=== PATIENT | female | born 1980 | race Caucasian/White ===

== ENCOUNTER 2020-08-18 12:01 | Outpatient (REF) | payer MEDICAID, SELFPAY ==
--- NOTE | 2020-08-18 12:21 | CT_ITS ---
EXAMINATION: CT ABDOMEN AND PELVIS WITHOUT CONTRAST CLINICAL INFORMATION: Right lower quadrant pain. COMPARISON: Ultrasound abdomen 02/21/[address] abdomen and pelvis 02/07/2007. TECHNIQUE: Multidetector volumetric imaging was performed from the superior aspect of the liver through the pubic symphysis. Sagittal and coronal reformatted images were obtained on the technologist's workstation. This CT examination was performed using dose optimization techniques as appropriate, variously including the following: *Automated exposure control. *Adjustment of mA and/or kV according to patient size (this includes techniques or standardized protocols for targeted exams where dose is matched to indication/reason for exam; i.e. extremities or head). *Use of iterative reconstruction technique. DLP: 629 mGy-cm FINDINGS: LUNG BASES: The visualized lung bases are unremarkable. LIVER, GALLBLADDER, AND BILIARY TREE: The liver is normal in size, shape, and attenuation. No focal hepatic lesion or biliary ductal dilatation is present. The gallbladder is unremarkable with no evidence of radiopaque gallstones, gallbladder wall thickening, or obvious pericholecystic inflammatory changes. PANCREAS: Unremarkable. SPLEEN: Unremarkable. ADRENAL GLANDS: Unremarkable. KIDNEYS AND URETERS: The kidneys are normal in size, shape, and attenuation. No hydronephrosis, hydroureter, or calculi seen. No perinephric stranding. BLADDER: The bladder is nondistended and appears unremarkable. GASTROINTESTINAL TRACT: There is moderate scattered stool seen throughout the colon with a few scattered diverticuli and without significant distention. Oral contrast opacified. Small bowel loops appear unremarkable. The appendix is visualized and appears unremarkable. ABDOMINAL WALL: No significant hernia is appreciated. LYMPH NODES: Normal. VASCULAR: Unremarkable. PELVIC VISCERA: There is a 3.4 x 3.3 cm round hypodense lesion in the left adnexa measuring 3 Hounsfield units suggestive of left ovarian or paraovarian cyst. Small benign lymph nodes are seen in the inguinal region. OSSEOUS STRUCTURES: No lytic or sclerotic process seen. IMPRESSION: 1. Moderate constipation with a few scattered diverticuli. 2. Left ovarian or paraovarian 3 cm cyst. 3. No radiopaque urolith or hydronephrosis seen.
[2020-08-18] MEDS: Barium Sulfate Oral (Mocha) 450 ML ORAL.SUSP 900 ML PO (15:20)
== END 2020-08-18 12:02 | disposition home or self-care (01) ==
LOC: HO.CT 12:01
PROVIDERS: PCP Nurse Practitioner Family; Visit Provider Internal Medicine
DX: Z01.818 Encounter for other preprocedural examination (principal); R10.31 Right lower quadrant pain
CPT/HCPCS: 74176

== ENCOUNTER → 2020-08-19 11:03 | Outpatient (REF) | payer MEDICAID, SELFPAY ==
--- NOTE | 2020-08-19 11:24 | ECG_ITS ---
Test Reason : PREPROC EXAM Blood Pressure : / mmHG Vent. Rate : 069 BPM Atrial Rate : 069 BPM P-R Int : 146 ms QRS Dur : 080 ms QT Int : 390 ms P-R-T Axes : 060 035 008 degrees QTc Int : 417 ms Normal sinus rhythm Nonspecific T wave abnormality Abnormal ECG When compared with ECG of 08-APR-2020 14:26, No significant change was found Referred By: Brian Name Electronically Signed By:GWENDOLYN BEVERLY MD
== END ==
LOC: HO.CARD 11:03
PROVIDERS: PCP Internal Medicine Geriatric Medicine; Visit Provider Internal Medicine Geriatric Medicine
DX: Z01.810 Encounter for preprocedural cardiovascular examination (principal); R94.31 Abnormal electrocardiogram [ECG] [EKG]
CPT/HCPCS: 93005

== ENCOUNTER 2020-09-16 12:14 | Outpatient (REF) | payer MEDICAID, SELFPAY | END 2020-09-16 12:15 | disposition home or self-care (01) | LOC: HO.LAB 12:14 | PROVIDERS: PCP Nurse Practitioner Family; Visit Provider Internal Medicine | DX: Z20.828 Contact with and (suspected) exposure to other viral communicable diseases (principal) | CPT/HCPCS: C9803; U0003 ==

== ENCOUNTER 2020-10-01 14:53 | Outpatient (REF) | payer MEDICAID, SELFPAY | END 2020-10-01 14:54 | disposition home or self-care (01) | LOC: HO.LAB 14:53 | PROVIDERS: Visit Provider Internal Medicine | DX: Z20.828 Contact with and (suspected) exposure to other viral communicable diseases (principal) | CPT/HCPCS: C9803; U0003 ==

== ENCOUNTER 2020-10-07 10:11 | Outpatient (REF) | payer MEDICAID, SELFPAY ==
[2020-10-07 11:24] LABS: Estimated Average Glucose 100 mg/dL; Hemoglobin A1c % 5.1 %
[2020-10-07 11:26] LABS: Cholesterol 289 mg/dL; Glucose Fasting 86 mg/dL (60-99); HDL Cholesterol 52 mg/dL; LDL Cholesterol Calculated 209 mg/dl; Triglycerides 142 mg/dL
== END 2020-10-07 10:12 | disposition home or self-care (01) ==
LOC: HO.LAB 10:11
PROVIDERS: PCP Nurse Practitioner Family; Visit Provider Nurse Practitioner Family
DX: E78.5 Hyperlipidemia, unspecified (principal); R73.03 Prediabetes; Z71.89 Other specified counseling
CPT/HCPCS: 80061; 82947; 83036

== ENCOUNTER → 2020-11-26 14:47 | Outpatient (REF) | payer MEDICAID, SELFPAY ==
--- NOTE | 2020-11-26 14:52 | ECG_ITS ---
Test Reason : PREPROC EXAM Blood Pressure : / mmHG Vent. Rate : 055 BPM Atrial Rate : 055 BPM P-R Int : 144 ms QRS Dur : 088 ms QT Int : 456 ms P-R-T Axes : 060 049 008 degrees QTc Int : 436 ms Sinus bradycardia Nonspecific T wave abnormality Abnormal ECG When compared to the previous EKG of Sinus bradycardia present Referred By: Amy Delgado Electronically Signed By:Tay Alvarez
--- NOTE | 2020-11-26 15:05 | XR_ITS ---
EXAMINATION: XR CHEST CLINICAL INFORMATION: Preprocedural examination COMPARISON: None TECHNIQUE: 2 views of the chest were obtained. FINDINGS: No significant abnormality is noted involving the heart, lungs, mediastinum, bony thorax or soft tissues. XR/XR chest 2V IMPRESSION: Unremarkable chest examination.
== END ==
LOC: HO.CARD 14:47
PROVIDERS: Absent Provider Nurse Practitioner Family; PCP Nurse Practitioner Family; Visit Provider Nurse Practitioner Family
DX: Z01.818 Encounter for other preprocedural examination (principal)
CPT/HCPCS: 71046; 93005

== ENCOUNTER 2020-11-30 10:03 | Outpatient (REF) | payer MEDICAID, SELFPAY | END 2020-11-30 10:04 | disposition home or self-care (01) | LOC: HO.LAB 10:03 | PROVIDERS: PCP Nurse Practitioner Family; Visit Provider Internal Medicine | DX: Z20.822 Contact with and (suspected) exposure to COVID-19 (principal) | CPT/HCPCS: 36415; C9803; U0003; U0005 ==

== ENCOUNTER 2020-12-01 10:34 | Outpatient (REF) | payer MEDICAID, SELFPAY ==
[2020-12-01 12:18] LABS: Anion Gap 12 (12-20); Blood Urea Nitrogen 11 mg/dL (9-16); Calcium 9.2 mg/dL (8.4-10.2); Carbon Dioxide 29 mmol/L (22-29); Chloride 104 mmol/L (96-108); Estimated Glomerular Filt Rate > 60; Glucose Random 81 mg/dL (60-115); Potassium 4.6 mmol/L (3.3-5.1); Sodium 140 mmol/L (135-145)
== END 2020-12-01 10:35 | disposition home or self-care (01) ==
LOC: HO.LAB 10:34
PROVIDERS: PCP Nurse Practitioner Family; Visit Provider Nurse Practitioner Family
DX: Z01.818 Encounter for other preprocedural examination (principal)
CPT/HCPCS: 36415; 80048

== ENCOUNTER 2020-12-24 10:08 | Outpatient (REF) | payer MEDICAID, SELFPAY | END 2020-12-24 10:09 | disposition home or self-care (01) | LOC: HO.LAB 10:08 | PROVIDERS: Visit Provider Internal Medicine | DX: Z20.822 Contact with and (suspected) exposure to COVID-19 (principal) | CPT/HCPCS: 36415; C9803; U0003; U0005 ==

== ENCOUNTER 2021-02-25 09:42 | Outpatient (REF) | payer MEDICAID, SELFPAY ==
[2021-02-25 10:05] LABS: COVID-19 Test Negative (Negative)
== END 2021-02-25 09:43 | disposition home or self-care (01) ==
LOC: HO.LAB 09:42
PROVIDERS: Visit Provider Internal Medicine
DX: Z20.822 Contact with and (suspected) exposure to COVID-19 (principal)
CPT/HCPCS: 36415; 87635; C9803

== ENCOUNTER 2021-04-11 08:54 | Outpatient (REF) | payer MEDICAID, SELFPAY ==
--- NOTE | ~2021-04-11 | MM_ITS ---
EXAMINATION: MM SCREENING DIGITAL BREAST TOMOSYNTHESIS, BILATERAL CLINICAL INFORMATION: Screening. Asymptomatic. Status post implants August 2020. Also history bilateral reduction mammoplasty 2015. The lifetime risk of breast cancer based on the Tyrer-Cuzick Model is 7%. COMPARISON: Mammography: 04/08/2020, 04/04/2019, 04/03/2018 TECHNIQUE: Digital mammography is performed in craniocaudal and mediolateral oblique views along with computer-aided detection (CAD). Digital breast tomosynthesis is performed in implant-displaced craniocaudal and implant-displaced mediolateral oblique views along with computer-aided detection (CAD). Synthesized 2D images are generated from the tomosynthesis. FINDINGS: The breasts are heterogeneously dense, which may obscure small masses (ACR BI-RADS breast composition Category c). There are interval bilateral implants since prior imaging 04/08/2020. The implant margins are smooth. The breasts show no significant mass or architectural abnormality or abnormal calcifications. The axilla and skin contours are unremarkable. MM/MM tomosynthesis screen imp BI IMPRESSION: No mammographic evidence of malignancy. ASSESSMENT: BI-RADS 2: Benign RECOMMENDATION: Routine annual mammography screening. This patient's information was entered into a reminder system with a target due date for their next mammogram.
== END 2021-04-11 08:55 | disposition home or self-care (01) ==
LOC: HO.MAMMO 08:54
PROVIDERS: Visit Provider Registered Nurse
DX: Z12.31 Encounter for screening mammogram for malignant neoplasm of breast (principal)
CPT/HCPCS: 77063; 77067

== ENCOUNTER → 2021-10-06 09:48 | Outpatient (BNVA) | payer MEDICAID, SELFPAY | PROVIDERS: PCP Nurse Practitioner Primary Care; Referring Provider Nurse Practitioner Primary Care; Visit Provider Surgery | DX: K43.2 Incisional hernia without obstruction or gangrene (principal) | CPT/HCPCS: 99202 ==

== ENCOUNTER 2021-10-17 12:03 | Outpatient (REF) | payer MEDICAID, SELFPAY | END 2021-10-17 12:04 | disposition home or self-care (01) | LOC: HO.LAB 12:03 | PROVIDERS: Visit Provider Internal Medicine | DX: Z20.822 Contact with and (suspected) exposure to COVID-19 (principal) | CPT/HCPCS: C9803; U0003; U0005 ==

== ENCOUNTER 2021-10-31 10:04 | Outpatient (REF) | payer MEDICAID, SELFPAY ==
--- NOTE | ~2021-10-31 | CT_ITS ---
EXAMINATION: CT ABDOMEN AND PELVIS WITHOUT CONTRAST CLINICAL INFORMATION: Incisional hernia without obstruction or gangrene COMPARISON: Previous CT July 2020 TECHNIQUE: Multidetector volumetric imaging was performed from the superior aspect of the liver through the pubic symphysis. Sagittal and coronal reformatted images were obtained on the technologist's workstation. This CT examination was performed using dose optimization techniques as appropriate, variously including the following: *Automated exposure control *Adjustment of mA and/or kV according to patient size (this includes techniques or standardized protocols for targeted exams where dose is matched to indication/reason for exam; i.e. extremities or head) *Use of iterative reconstruction technique DLP: 438 mGy-cm FINDINGS: LUNG BASES: The visualized lung bases are unremarkable. LIVER, GALLBLADDER, AND BILIARY TREE: The liver is normal in size, shape, and attenuation. No focal hepatic lesion or biliary ductal dilatation is present. The gallbladder is unremarkable with no evidence of radiopaque gallstones, gallbladder wall thickening, or obvious pericholecystic inflammatory changes. PANCREAS: Unremarkable. SPLEEN: Unremarkable. ADRENAL GLANDS: Unremarkable. KIDNEYS AND URETERS: There is question of tiny 1 mm in size right renal stones. Kidneys are otherwise unremarkable. BLADDER: Unremarkable. GASTROINTESTINAL TRACT: The small and large bowel are unremarkable. The appendix is unremarkable. ABDOMINAL WALL: There are postoperative changes to the anterior abdominal wall. There is diastasis of the rectus muscles in the umbilical region. There is thickening of the anterior abdominal wall seen in this region questionable for postsurgical change. No abdominal wall hernia is seen. There is a stranding of the subcutaneous fat question related to postsurgical changes. No abdominal wall fluid collection is seen. No inguinal hernia is seen. LYMPH NODES: Normal. VASCULAR: Unremarkable. PELVIC VISCERA: The uterus appears to have been removed. OSSEOUS STRUCTURES: Unremarkable. CT/CT abdomen pelvis wo con IMPRESSION: Postsurgical changes to the anterior abdominal wall and diastasis of the rectus muscles. No definite hernia is seen. Question tiny right renal stones. Fleischner guidelines were followed.
== END 2021-10-31 10:05 | disposition home or self-care (01) ==
LOC: HO.CT 10:04
PROVIDERS: Visit Provider Surgery
DX: K43.2 Incisional hernia without obstruction or gangrene (principal)
CPT/HCPCS: 74176

== ENCOUNTER → 2021-11-15 10:23 | Outpatient (BNVA) | payer MEDICAID, SELFPAY | PROVIDERS: PCP Nurse Practitioner Primary Care; Referring Provider Nurse Practitioner Primary Care; Visit Provider Surgery | DX: K43.2 Incisional hernia without obstruction or gangrene (principal) | CPT/HCPCS: 99212 ==

== ENCOUNTER 2022-01-12 15:06 | Outpatient (REF) | payer MEDICAID, SELFPAY ==
--- NOTE | ~2022-01-12 | US_ITS ---
EXAMINATION: US SOFT TISSUES OF THE BACK CLINICAL INFORMATION: Question cyst or lesion, middle of back. COMPARISON: CT abdomen and pelvis 10/31/2021. TECHNIQUE: Real-time imaging of the midline back using a linear array transducer with grayscale and color modalities. FINDINGS: The cutaneous, subcutaneous, muscular and fascial planes are unremarkable. No mass or cyst is seen. There is no lymphadenopathy. No foreign body is seen. US/US abdomen limited IMPRESSION: Unremarkable examination, without focal finding finding seen to correspond with the palpable finding described by the patient in the midline back soft tissues.
== END 2022-01-12 15:07 | disposition home or self-care (01) ==
LOC: HO.US 15:06
PROVIDERS: PCP Nurse Practitioner Primary Care; Visit Provider Nurse Practitioner Primary Care
DX: L98.9 Disorder of the skin and subcutaneous tissue, unspecified (principal)
CPT/HCPCS: 76705

== ENCOUNTER 2022-02-17 07:54 | Outpatient (REF) | payer MEDICAID, SELFPAY ==
--- NOTE | ~2022-02-17 | US_ITS ---
EXAMINATION: US VENOUS ULTRASOUND WITH DOPPLER LOWER EXTREMITY, LEFT CLINICAL INFORMATION: Left lower extremity swelling and pain. COMPARISON: None TECHNIQUE: Ultrasound of the deep veins is performed from the hip to the calf with compression sonography and color and pulse Doppler assessment. Spectral analysis with color-flow imaging is performed. FINDINGS: There is normal venous compression and respiratory variation and augmented flow. The visualized common femoral vein, superficial femoral vein, profunda femoral vein, popliteal vein, and the trifurcation region shows no evidence of deep venous thrombosis. There is no significant popliteal fossa cyst. Incidental note is made of complex fluid collection, measures 2.8 cm at its maximum craniocaudal dimension, superior to the patella, likely represent effusion. If the patient's symptoms persist, followup ultrasound in 5 days 7 days might be of value to exclude proximal propagation from a non-visualized calf vein. US/US venous duplex LE IMPRESSION: No DVT demonstrated in the left lower extremity. Complex fluid collection is seen superior to the patella, likely represent joint effusion.
== END 2022-02-17 07:55 | disposition home or self-care (01) ==
LOC: HO.US 07:54
PROVIDERS: PCP Nurse Practitioner Primary Care; Visit Provider Nurse Practitioner Family
DX: M25.462 Effusion, left knee (principal)
CPT/HCPCS: 93971

== ENCOUNTER 2022-07-21 15:18 | Emergency (ER) | payer MEDICAID, SELFPAY ==
--- NOTE | ~2022-07-21 | CT_ITS ---
EXAMINATION: CT ABDOMEN AND PELVIS WITHOUT CONTRAST CLINICAL INFORMATION: Rectal bleed COMPARISON: 10/31/2021 TECHNIQUE: Multidetector volumetric imaging was performed from the superior aspect of the liver through the pubic symphysis. Sagittal and coronal reformatted images were obtained on the technologist's workstation. This CT examination was performed using dose optimization techniques as appropriate, variously including the following: *Automated exposure control *Adjustment of mA and/or kV according to patient size (this includes techniques or standardized protocols for targeted exams where dose is matched to indication/reason for exam; i.e. extremities or head) *Use of iterative reconstruction technique DLP: 527 mGy-cm FINDINGS: LUNG BASES: The visualized lung bases are unremarkable. LIVER, GALLBLADDER, AND BILIARY TREE: The liver is normal in size, shape, and attenuation. No focal hepatic lesion or biliary ductal dilatation is present. Cholecystectomy. PANCREAS: Unremarkable. SPLEEN: Unremarkable. ADRENAL GLANDS: Unremarkable. KIDNEYS AND URETERS: The kidneys are normal in size, shape, and attenuation. No hydronephrosis, hydroureter, or calculi seen. No perinephric stranding. BLADDER: Unremarkable. GASTROINTESTINAL TRACT: The stomach is unremarkable. Normal caliber small bowel. No obstruction. No colonic wall thickening or acute inflammation. Normal appendix. No free air or free fluid. ABDOMINAL WALL: No significant hernia is appreciated. LYMPH NODES: Normal. VASCULAR: Normal caliber aorta. Mild atherosclerotic calcification. PELVIC VISCERA: Uterus not seen. No adnexal mass. OSSEOUS STRUCTURES: No acute or suspicious osseous abnormality. Mild degenerative change of the spine and hips CT/CT abdomen pelvis wo IV con IMPRESSION: No acute finding in the abdomen or pelvis. No inflammatory changes. No bowel wall thickening. Fleischner guidelines were followed.
[2022-07-21 15:20] VITALS: BP 166/96; PULSE 78; RESP 18; TEMP 37; O2SAT 98; BMI 28.8
--- NOTE | 2022-07-21 15:24 | ECG_ITS ---
Test Reason : dizzy Blood Pressure : / mmHG Vent. Rate : 060 BPM Atrial Rate : 060 BPM P-R Int : 144 ms QRS Dur : 084 ms QT Int : 434 ms P-R-T Axes : 052 035 001 degrees QTc Int : 434 ms Normal sinus rhythm Nonspecific T wave abnormality Abnormal ECG When compared with ECG of 26-NOV-2020 15:00, No significant change was found Referred By: Generic ED Physician Electronically Signed By:MATTHEW AREVALO
[2022-07-21 15:37] LABS: MANUAL DIFF FLAG NO
[2022-07-21 15:39] LABS: Basophils Absolute Auto 0.1 X10*3/uL (0.0-0.2); Eosinophils Absolute Auto 0.2 X10*3/uL (0.0-0.4); Eosinophils Percent Auto 2.2 % (0-4); Hematocrit 37.2 % (37.0-47.0); Hemoglobin 11.9 g/dl (12.0-16.0); Imm Gran Abs Auto 0.04 X10*3/uL (0.00-0.03); Imm Gran Pct Auto 0.4 % (0.0-0.4); Lymphocytes Absolute Auto 2.4 X10*3/uL (1.2-4.9); Lymphocytes Percent Auto 25.8 % (20-40); Mean Corpuscular Volume 90.7 fL (80.0-98.0); Mean Platelet Volume 10.3 fL (9.4-12.3); Monocytes Absolute Auto 0.9 X10*3/uL (0.1-1.2); Monocytes Percent Auto 10.3 % (2-11); Neutrophils Absolute Auto 5.5 x10*3/uL (2.0-8.3); Neutrophils Percent Auto 60.3 % (45-73); Platelet Count 293 X10*3/uL (160-400); Red Cell Distribution Width 12.1 % (11.0-16.0); White Blood Count 9.1 X10*3/uL (4.8-10.8)
[2022-07-21 15:45] LABS: Appearance Urine Clear; Color Urine Yellow; Glucose Urine UA Negative (Negative); Leukocyte Esterase Urine Negative (Negative); Nitrite Urine Negative (Negative); Urine Blood Negative (Negative); Urine Ketones Negative (Negative); Urine Protein Negative (Neg-Trace)
[2022-07-21 15:47] LABS: UPreg QC Valid YES; Urine Pregnancy NEGATIVE (NEGATIVE)
[2022-07-21 15:54] LABS: Alanine Aminotransferase 7 U/L (0-31); Alkaline Phosphatase 51 U/L (39-117); Anion Gap 14 (12-20); Aspartate Amino Transferase 17 U/L (5-31); Bilirubin Direct 0.3 mg/dL (0.0-0.5); Bilirubin Total 1.2 mg/dL (0.0-1.0); Blood Urea Nitrogen 9 mg/dL (9-16); Carbon Dioxide 25 mmol/L (22-29); Chloride 103 mmol/L (96-108); Creatinine Clr Calc Pharmacy 113.3; Estimated Glomerular Filt Rate > 60; Glucose Random 89 mg/dL (60-115); Lipase 24 U/L (8-78); Potassium 3.9 mmol/L (3.3-5.1); Sodium 138 mmol/L (135-145)
[2022-07-21 16:01] LABS: COVID-19 Test Negative (Negative)
[2022-07-21 23:37] VITALS: BP 135/87; PULSE 57; RESP 18; TEMP 36.5; O2SAT 98
--- NOTE | 2022-07-22 01:50 | ED_ITS ---
HPI - GI Bleed General Chief complaint: GI Bleed Stated complaint: C sent over, blood coming from rectum, headache Time Seen by Provider: 07/21/22 22:01 Source: patient Mode of arrival: ambulatory Limitations: no limitations History of Present Illness HPI Narrative: Patient comes to the emergency room complaining of a couple of days of rectal bleeding. Patient states that initially she thought it was vaginal or urinary. Denies dysuria or flank pain. Patient went to see her primary care physician, she was informed that the bleeding that the patient is seeing is actually rectal. Patient has no abdominal pain, no rectal pain, no hemorrhoids to her knowledge. Related Data Home Medications Medication Instructions Recorded Confirmed cholecalciferol (vitamin D3) 25 25 mcg PO DAILY 10/06/21 11/18/21 mcg (1,000 unit) capsule cyclobenzaprine 10 mg tablet 10 mg PO BEDTIME 10/06/21 10/06/21 hydroxyzine HCl 10 mg tablet 10 - 20 mg PO Q6H PRN anxiety 10/06/21 10/06/21 ketoconazole 2 % shampoo topical 10/06/21 10/06/21 lancets 28 gauge (FreeStyle #100 ea 10/06/21 10/06/21 Lancets) mirtazapine 7.5 mg tablet 7.5 - 15 mg PO BEDTIME 10/06/21 10/06/21 omeprazole 20 mg capsule,delayed 20 mg PO DAILY 10/06/21 10/06/21 release sumatriptan succinate 50 mg tablet 0 mg PO 10/06/21 10/06/21 venlafaxine 150 mg 150 mg PO DAILY 10/06/21 10/06/21 capsule,extended release 24 hr Allergies Allergy/AdvReac Type Severity Reaction Status Date / Time pollen Allergy Unknown Unknown Uncoded 11/15/21 11:01 Review of Systems Review of Systems: Constitutional : No Weight loss, No Fever, No Chills, No Night Sweats, No Fatigue, No Malaise ENT/Mouth : No Hearing loss, No Ear Pain, No Nasal Congestion, No Sinus Pain, No Hoarseness, No sore throat, No Rhinorrhea, No Swallowing Difficulty Eyes: No Eye Pain, No Swelling, No Redness, No Foreign Body, No Discharge, No Vision Changes Cardiovascular : No Chest Pain, No SOB, No Dyspnea on Exertion, No Orthopnea, No Edema, No Palpitations Respiratory : No Cough, No Sputum, No Wheezing, No Smoke Exposure, No Dyspnea Gastrointestinal : No Nausea, No Vomiting, No Diarrhea, No Constipation, No abdominal Pain, complaining of painless rectal bleeding Genitourinary : no irregular bleeding, No Dysuria, No Urinary Frequency, No Hematuria, No Urinary Incontinence, No Urgency, No Flank Pain, No Urinary Flow Changes, No Hesitancy Musculoskeletal : No joint pain, No Myalgias, No Joint Swelling Skin : No Skin Lesions, No rash Neuro : No Weakness, No Numbness, No Paresthesias, No Loss of Consciousness, No Dizziness, No Headache Psych : No Anxiety/Panic, No Depression, No SI/HI/AH/VH, No Social Issues, Heme/Lymph: No Bruising, No Bleeding,No Lymphadenopathy Endocrine : No Polyuria, No Polydipsia, No Temperature Intolerance [facility] Past Medical History Medical History History of umbilical hernia Surgical History History of abdominoplasty History of bilateral breast reduction surgery History of breast augmentation History of cholecystectomy History of excision of mass Family History Family History Mother Colon cancer Social History Social History Alcohol intake: never Patient Tobacco Use Status: Never used Tobacco Advance Directives: No Physical Exam Vital Signs: Vital Signs: Last Vital Signs Temp 97.7 F 07/21/22 23:37 Pulse 70 07/22/22 01:54 Resp 16 07/22/22 01:54 BP 132/81 07/22/22 01:54 Pulse Ox 97 07/22/22 01:54 O2 Del Method 07/22/22 01:54 BMI result Body Mass Index 28.8 Const: Other: Appearance: Alert. Oriented X3. No acute distress. Well-appearing Eyes: Pupils equal, round and reactive to light. ENT: Pharynx normal. Neck: Normal inspection. Neck supple. No lymph nodes noted. No crepitus CVS: Normal heart rate and rhythm. Pulses normal. Normal S1 and S2 Respiratory: No respiratory distress. Breath sounds normal. No Wheezing. No rales Abdomen: Soft and nontender. No rigidity. No distention. On digital rectal exam, likely palpable internal hemorrhoids, scant blood on exam Skin: Skin warm and dry. Normal skin color. Normal skin turgor. Extremities: No lower extremity edema. No Lacerations. No Rash Neuro: Oriented X 3. No motor deficit. No sensory deficit. Moving all extremities. No slurred speech. CN 2 through 12 grossly intact Psych: calm, cooperative, normal affect Course Course Course Narrative: Patient's labs are stable. We will repeat H and H and CT scan is pending. Guaiac is positive. On physical exam it seems that she has internal h emorrhoids. No external hemorrhoids. No abdominal pain on physical exam. CT scan does not show any acute findings. I discussed with the patient that her H&H repeat labs are stable. Patient inst ructed to follow-up with surgery for possible ligation of internal hemorrhoids. Patient is stable to go home, blood pressure and vital stable. MDM - GI Bleed Lab Data Result diagrams: 07/22/22 02:38 07/21/22 15:33 Labs: Lab Results 07/21/22 07/21/22 07/21/22 Range/Units 15:33 15:33 15:33 WBC 9.1 (4.8-10.8) X10*3/uL RBC 4.10 L (4.20-5.50) X10*6/uL Hgb 11.9 L (12.0-16.0) g/dl Hct 37.2 (37.0-47.0) % MCV 90.7 (80.0-98.0) fL MCH 29.0 (27.0-33.0) pg MCHC 32.0 (31.0-35.0) g/dl RDW 12.1 (11.0-16.0) % Plt Count 293 (160-400) X10*3/uL MPV 10.3 (9.4-12.3) fL Immature Gran % (Auto) 0.4 (0.0-0.4) % Neut % (Auto) 60.3 (45-73) % Lymph % (Auto) 25.8 (20-40) % [place] % (Auto) 10.3 (2-11) % Eos % (Auto) 2.2 (0-4) % Baso % (Auto) 1.0 (0-2) % Lymph # (Auto) 2.4 (1.2-4.9) X10*3/uL [place] # (Auto) 0.9 (0.1-1.2) X10*3/uL Eos # (Auto) 0.2 (0.0-0.4) X10*3/uL Baso # (Auto) 0.1 (0.0-0.2) X10*3/uL Abs Immat Gran (auto) 0.04 H (0.00-0.03) X10*3/uL Absolute Neuts (auto) 5.5 (2.0-8.3) x10*3/uL Absolute Nucleated RBC 0.000 (0.0-0.012) X10*3/uL Nucleated RBC % (auto) 0.0 (0.0-0.2) /100WBC Sodium 138 (135-145) mmol/L Potassium 3.9 (3.3-5.1) mmol/L Chloride 103 (96-108) mmol/L Carbon Dioxide 25 (22-29) mmol/L Anion Gap 14 (12-20) BUN 9 (9-16) mg/dL Creatinine 0.61 (0.5-1.4) mg/dL Estim Creat Clear Calc 113.3 Estimated GFR > 60 Random Glucose 89 (60-115) mg/dL Calcium 9.0 (8.4-10.2) mg/dL Total Bilirubin 1.2 H (0.0-1.0) mg/dL Direct Bilirubin 0.3 (0.0-0.5) mg/dL AST 17 (5-31) U/L ALT 7 (0-31) U/L Alkaline Phosphatase 51 (39-117) U/L Total Protein 7.0 (6.5-8.0) g/dL Albumin 4.0 (3.5-5.0) g/dL Lipase 24 (8-78) U/L Urine Color Urine Appearance Urine pH (5.0-9.0) Ur Specific [place] (1.005-1.025) Urine Protein (Neg-Trace) mg/dL Urine Glucose (UA) (Negative) mg/dL Urine Ketones (Negative) mg/dL Urine Blood (Negative) Urine Nitrite (Negative) Ur Leukocyte Esterase (Negative) Urine Test (NEGATIVE) Stool Occult Blood (NEGATIVE) COVID-19 (PEDRO PABLO) Negative (Negative) COVID-19 Clin Com See Note 07/21/22 07/21/22 07/22/22 Range/Units 15:40 15:40 02:38 WBC (4.8-10.8) X10*3/uL RBC (4.20-5.50) X10*6/uL Hgb 11.5 L (12.0-16.0) g/dl Hct 36.2 L (37.0-47.0) % MCV (80.0-98.0) fL MCH (27.0-33.0) pg MCHC (31.0-35.0) g/dl RDW (11.0-16.0) % Plt Count (160-400) X10*3/uL MPV (9.4-12.3) fL Immature Gran % (Auto) (0.0-0.4) % Neut % (Auto) (45-73) % Lymph % (Auto) (20-40) % [place] % (Auto) (2-11) % Eos % (Auto) (0-4) % Baso % (Auto) (0-2) % Lymph # (Auto) (1.2-4.9) X10*3/uL [place] # (Auto) (0.1-1.2) X10*3/uL Eos # (Auto) (0.0-0.4) X10*3/uL Baso # (Auto) (0.0-0.2) X10*3/uL Abs Immat Gran (auto) (0.00-0.03) X10*3/uL Absolute Neuts (auto) (2.0-8.3) x10*3/uL Absolute Nucleated RBC (0.0-0.012) X10*3/uL Nucleated RBC % (auto) (0.0-0.2) /100WBC Sodium (135-145) mmol/L Potassium (3.3-5.1) mmol/L Chloride (96-108) mmol/L Carbon Dioxide (22-29) mmol/L Anion Gap (12-20) BUN (9-16) mg/dL Creatinine (0.5-1.4) mg/dL Estim Creat Clear Calc Estimated GFR Random Glucose (60-115) mg/dL Calcium (8.4-10.2) mg/dL Total Bilirubin (0.0-1.0) mg/dL Direct Bilirubin (0.0-0.5) mg/dL AST (5-31) U/L ALT (0-31) U/L Alkaline Phosphatase (39-117) U/L Total Protein (6.5-8.0) g/dL Albumin (3.5-5.0) g/dL Lipase (8-78) U/L Urine Color Yellow Urine Appearance Clear Urine pH 6.0 (5.0-9.0) Ur Specific [place] 1.010 (1.005-1.025) Urine Protein Negative (Neg-Trace) mg/dL Urine Glucose (UA) Negative (Negative) mg/dL Urine Ketones Negative (Negative) mg/dL Urine Blood Negative (Negative) Urine Nitrite Negative (Negative) Ur Leukocyte Esterase Negative (Negative) Urine Test NEGATIVE (NEGATIVE) Stool Occult Blood (NEGATIVE) COVID-19 (PEDRO PABLO) (Negative) COVID-19 Clin Com 07/22/22 Range/Units 02:40 WBC (4.8-10.8) X10*3/uL RBC (4.20-5.50) X10*6/uL Hgb (12.0-16.0) g/dl Hct (37.0-47.0) % MCV (80.0-98.0) fL MCH (27.0-33.0) pg MCHC (31.0-35.0) g/dl RDW (11.0-16.0) % Plt Count (160-400) X10*3/uL MPV (9.4-12.3) fL Immature Gran % (Auto) (0.0-0.4) % Neut % (Auto) (45-73) % Lymph % (Auto) (20-40) % [place] % (Auto) (2-11) % Eos % (Auto) (0-4) % Baso % (Auto) (0-2) % Lymph # (Auto) (1.2-4.9) X10*3/uL [place] # (Auto) (0.1-1.2) X10*3/uL Eos # (Auto) (0.0-0.4) X10*3/uL Baso # (Auto) (0.0-0.2) X10*3/uL Abs Immat Gran (auto) (0.00-0.03) X10*3/uL Absolute Neuts (auto) (2.0-8.3) x10*3/uL Absolute Nucleated RBC (0.0-0.012) X10*3/uL Nucleated RBC % (auto) (0.0-0.2) /100WBC Sodium (135-145) mmol/L Potassium (3.3-5.1) mmol/L Chloride (96-108) mmol/L Carbon Dioxide (22-29) mmol/L Anion Gap (12-20) BUN (9-16) mg/dL Creatinine (0.5-1.4) mg/dL Estim Creat Clear Calc Estimated GFR Random Glucose (60-115) mg/dL Calcium (8.4-10.2) mg/dL Total Bilirubin (0.0-1.0) mg/dL Direct Bilirubin (0.0-0.5) mg/dL AST (5-31) U/L ALT (0-31) U/L Alkaline Phosphatase (39-117) U/L Total Protein (6.5-8.0) g/dL Albumin (3.5-5.0) g/dL Lipase (8-78) U/L Urine Color Urine Appearance Urine pH (5.0-9.0) Ur Specific [place] (1.005-1.025) Urine Protein (Neg-Trace) mg/dL Urine Glucose (UA) (Negative) mg/dL Urine Ketones (Negative) mg/dL Urine Blood (Negative) Urine Nitrite (Negative) Ur Leukocyte Esterase (Negative) Urine Test (NEGATIVE) Stool Occult Blood POSITIVE (NEGATIVE) COVID-19 (PEDRO PABLO) (Negative) COVID-19 Clin Com Imaging Data CT scan - abdomen: Radiologist's impression: FINDINGS: LUNG BASES: The visualized lung bases are unremarkable.? LIVER, GALLBLADDER, AND BILIARY TREE: The liver is normal in size, shape, and attenuation. No focal hepatic lesion or biliary ductal dilatation is present. Cholecystectomy.? PANCREAS: Unremarkable.? SPLEEN: Unremarkable.? ADRENAL GLANDS: Unremarkable.? KIDNEYS AND URETERS: The kidneys are normal in size, shape, and attenuation. No hydronephrosis, hydroureter, or calculi seen. No perinephric stranding. ? BLADDER: Unremarkable.? GASTROINTESTINAL TRACT: The stomach is unremarkable. Normal caliber small bowel. No obstruction. No colonic wall thickening or acute inflammation. Normal appendix. No free air or free fluid.? ABDOMINAL WALL: No significant hernia is appreciated.? LYMPH NODES: Normal. VASCULAR: Normal caliber aorta. Mild atherosclerotic calcification. PELVIC VISCERA: Uterus not seen. No adnexal mass.? OSSEOUS STRUCTURES: No acute or suspicious osseous abnormality. Mild degenerative change of the spine and hips? CT/CT abdomen pelvis wo IV con IMPRESSION: No acute finding in the abdomen or pelvis. No inflammatory changes. No bowel wall thickening.? ? Fleischner guidelines were follow Discharge Plan Discharge Clinical Impression: Hemorrhoids, internal Patient Disposition: Home, Self-Care Instructions: Hemorrhoids (ED) Prescriptions: No Action sumatriptan succinate 50 mg tablet 0 mg PO hydroxyzine HCl 10 mg tablet 10 - 20 mg PO Q6H PRN (Reason: anxiety) venlafaxine 150 mg capsule,extended release 24hr 150 mg PO DAILY cholecalciferol (vitamin D3) 25 mcg (1,000 unit) capsule 25 mcg PO DAILY mirtazapine 7.5 mg tablet 7.5 - 15 mg PO BEDTIME ketoconazole 2 % shampoo topical (DME) lancets [FreeStyle Lancets] 28 gauge misc See Rx Instructions topical QAM Qty: 100 Rx Instructions: As directed omeprazole 20 mg capsule,delayed release(DR/EC) 20 mg PO DAILY cyclobenzaprine 10 mg tablet 10 mg PO BEDTIME
--- NOTE | 2022-07-22 01:52 | PC.NURSE ---
Action called at 0105 spoke to Rose from dispatch,for a bls transfer back to [facility]. ETA for 2Am,Rn aware
[2022-07-22 01:54] VITALS: BP 132/81; PULSE 70; RESP 16; O2SAT 97
[2022-07-22 02:43] LABS: Hematocrit 36.2 % (37.0-47.0); Hemoglobin 11.5 g/dl (12.0-16.0)
[2022-07-22 02:43] LABS: OBS Int Ctl Valid YES; OBS1 POSITIVE (NEGATIVE)
== END 2022-07-22 03:28 | disposition home or self-care (01) ==
PROVIDERS: Emergency Provider Emergency Medicine
DX: K64.8 Other hemorrhoids (principal); K92.2 Gastrointestinal hemorrhage, unspecified; Z20.822 Contact with and (suspected) exposure to COVID-19
CPT/HCPCS: 36415; 74176; 80053; 81003; 81025; 82248; 82272; 83690; 85014; 85018; 85025; 87635; 93005; 99284

== ENCOUNTER 2022-09-29 13:37 | Outpatient (REF) | payer MEDICAID, SELFPAY ==
--- NOTE | ~2022-09-29 | MM_ITS ---
EXAMINATION: MM SCREENING DIGITAL BREAST TOMOSYNTHESIS, BILATERAL CLINICAL INFORMATION: Screening. Asymptomatic. The lifetime risk of breast cancer based on the Tyrer-Cuzick Model is 6%. COMPARISON: Mammography: 04/11/2021, 04/08/2020, 04/04/2019 TECHNIQUE: Digital mammography is performed in craniocaudal and mediolateral oblique views along with computer-aided detection (CAD). Digital breast tomosynthesis is performed in implant-displaced craniocaudal and implant-displaced mediolateral oblique views along with computer-aided detection (CAD). Synthesized 2D images are generated from the tomosynthesis. FINDINGS: The breasts are heterogeneously dense, which may obscure small masses (ACR BI-RADS breast composition Category c). There are bilateral implants with smooth contours, similar to prior exam. The breast parenchymal pattern is without significant change. No interval significant mass or architectural abnormality or abnormal calcifications. The skin contours are smooth. MM/MM tomosynthesis screen imp BI IMPRESSION: No mammographic evidence of malignancy. ASSESSMENT: BI-RADS 1: Negative RECOMMENDATION: Routine annual mammography screening. This patient's information was entered into a reminder system with a target due date for their next mammogram.
== END 2022-09-29 13:38 | disposition home or self-care (01) ==
LOC: HO.MAMMO 13:37
PROVIDERS: Visit Provider Nurse Practitioner Primary Care
DX: Z12.31 Encounter for screening mammogram for malignant neoplasm of breast (principal)
CPT/HCPCS: 77063; 77067

== ENCOUNTER → 2022-12-08 10:17 | Outpatient (BNVA) | payer MEDICAID, SELFPAY | PROVIDERS: Visit Provider Surgery | DX: K43.2 Incisional hernia without obstruction or gangrene (principal) | CPT/HCPCS: 99212 ==

== ENCOUNTER 2023-01-03 12:33 | Outpatient (REF) | payer MEDICAID, SELFPAY ==
--- NOTE | ~2023-01-03 | US_ITS ---
EXAMINATION: US ABDOMEN LIMITED CLINICAL INFORMATION: Incisional hernia without obstruction or gangrene. COMPARISON: CT abdomen and pelvis without contrast 07/22/2022. Ultrasound abdomen complete 03/16/2021 and 02/21/2017. TECHNIQUE: Real-time imaging of the periumbilical region. FINDINGS: There is a small break in the fascia superior to the umbilicus measuring 0.2 cm neck without any bowel or fat herniation. US/US abdomen limited IMPRESSION: Small break in the fascia superior to umbilicus suggestive of small abdominal wall hernia. No bowel or fat herniation seen.
== END 2023-01-03 12:34 | disposition home or self-care (01) ==
LOC: HO.US 12:33
PROVIDERS: Visit Provider Surgery
DX: K43.2 Incisional hernia without obstruction or gangrene (principal)
CPT/HCPCS: 76705

== ENCOUNTER → 2023-01-11 14:11 | Outpatient (BNVA) | payer MEDICAID, SELFPAY | PROVIDERS: PCP Nurse Practitioner Primary Care; Referring Provider Nurse Practitioner Primary Care; Visit Provider Surgery | DX: K43.2 Incisional hernia without obstruction or gangrene (principal) | CPT/HCPCS: 99212 ==

== ENCOUNTER 2023-04-11 09:37 | Outpatient (REF) | payer MEDICAID, SELFPAY ==
--- NOTE | ~2023-04-11 | XR_ITS ---
EXAMINATION: XR SHOULDER, LEFT CLINICAL INFORMATION: Pain in shoulder since yesterday COMPARISON: None available. TECHNIQUE: AP external rotation, Grashey, scapular Y, and axillary views of the left shoulder. FINDINGS: The bones and soft tissues are normal. No fracture. Glenohumeral and acromioclavicular alignment is anatomic with normal joint space. No abnormal soft tissue calcifications. XR/XR shoulder LT min 2V IMPRESSION: Normal left shoulder.
== END 2023-04-11 09:38 | disposition home or self-care (01) ==
LOC: HO.HHCX 09:37
PROVIDERS: Visit Provider Emergency Medicine
DX: M25.512 Pain in left shoulder (principal)
CPT/HCPCS: 73030

== ENCOUNTER 2023-04-23 10:58 | Outpatient (REF) | payer MEDICAID, SELFPAY ==
--- NOTE | ~2023-04-23 | XR_ITS ---
EXAMINATION: XR HIP, RIGHT CLINICAL INFORMATION: Pain COMPARISON: None available. TECHNIQUE: Two views of the right hip. FINDINGS: Bones and soft tissues are normal. No fracture. Alignment is anatomic. Hip joint space is maintained. XR/XR hip RT min 2V IMPRESSION: Normal right hip.
== END 2023-04-23 10:59 | disposition home or self-care (01) ==
LOC: HO.HHCX 10:58
PROVIDERS: Visit Provider Student in an Organized Health Care Education/Training Program
DX: M25.551 Pain in right hip (principal)
CPT/HCPCS: 73502

== ENCOUNTER 2023-07-03 13:53 | Outpatient (REF) | payer MEDICAID, SELFPAY ==
--- NOTE | ~2023-07-03 | XR_ITS ---
EXAMINATION: XR CHEST CLINICAL INFORMATION: Asthmatic COMPARISON: None available. TECHNIQUE: 2 views of the chest were obtained. FINDINGS: Lungs clear. No pleural effusions. Heart and pulmonary vessels are normal. No pneumothorax. XR/XR chest 2V IMPRESSION: No active disease.
== END 2023-07-03 13:54 | disposition home or self-care (01) ==
LOC: HO.HHCX 13:53
PROVIDERS: Visit Provider Nurse Practitioner Primary Care
DX: Z01.818 Encounter for other preprocedural examination (principal)
CPT/HCPCS: 71046

== ENCOUNTER 2023-07-03 14:11 | Outpatient (REF) | payer MEDICAID, SELFPAY ==
[2023-07-03 16:09] LABS: MANUAL DIFF FLAG NO
[2023-07-03 16:27] LABS: Basophils Absolute Auto 0.1 X10*3/uL (0.0-0.2); Basophils Percent Auto 0.6 % (0-2); Eosinophils Absolute Auto 0.2 X10*3/uL (0.0-0.4); Eosinophils Percent Auto 1.6 % (0-4); Hematocrit 36.5 % (37.0-47.0); Hemoglobin 11.6 g/dl (12.0-16.0); Imm Gran Abs Auto 0.09 X10*3/uL (0.00-0.03); Imm Gran Pct Auto 0.9 % (0.0-0.4); Lymphocytes Absolute Auto 1.9 X10*3/uL (1.2-4.9); Lymphocytes Percent Auto 19.8 % (20-40); Mean Corpuscular HGB Conc 31.8 g/dl (31.0-35.0); Mean Corpuscular Hemoglobin 29.7 pg (27.0-33.0); Mean Corpuscular Volume 93.6 fL (80.0-98.0); Monocytes Absolute Auto 1.1 X10*3/uL (0.1-1.2); Monocytes Percent Auto 10.9 % (2-11); Neutrophils Absolute Auto 6.4 x10*3/uL (2.0-8.3); Neutrophils Percent Auto 66.2 % (45-73); Platelet Count 320 X10*3/uL (160-400); Red Cell Distribution Width 12.2 % (11.0-16.0); White Blood Count 9.7 X10*3/uL (4.8-10.8)
[2023-07-03 16:32] LABS: Estimated Average Glucose 103 mg/dL; Hemoglobin A1c % 5.2 % (<6.0)
[2023-07-03 16:36] LABS: INTERNATIONAL NORM RATIO 0.8 (0.9-1.1); Prothrombin Time 10.2 SEC (11.1-13.3)
[2023-07-03 16:39] LABS: Partial Thromboplastin Time 26.3 SEC (26.0-36.4)
[2023-07-03 16:56] LABS: Alanine Aminotransferase 8 U/L (0-31); Albumin Level 3.7 g/dL (3.5-5.0); Alkaline Phosphatase 46 U/L (39-117); Anion Gap 9 (12-20); Aspartate Amino Transferase 18 U/L (5-31); Bilirubin Total 0.6 mg/dL (0.0-1.0); Blood Urea Nitrogen 9 mg/dL (9-16); Calcium 9.5 mg/dL (8.4-10.2); Carbon Dioxide 28 mmol/L (22-29); Chloride 106 mmol/L (96-108); Estimated Glomerular Filt Rate > 60; Glucose Random 81 mg/dL (60-115); Potassium 3.9 mmol/L (3.3-5.1); Sodium 139 mmol/L (135-145); Total Protein 6.9 g/dL (6.5-8.0)
[2023-07-03 17:24] LABS: Free T4 (Free Thyroxine) 0.76 ng/dL (0.71-1.85); HCG Quantitative < 2 mIU/mL; T4 Thyroxine 5.7 ug/dL (4.5-12.0); TSH reflex Free T4 2.42 uIU/mL (0.32-4.0); Thyroid Stimulating Hormone 2.42 uIU/mL (0.32-4.0)
[2023-07-05 05:45] LABS: Triiodothyronine T3 Free 2.8 pg/mL (2.3-4.2); Triiodothyronine T3 Total 105 ng/dL (76-181)
== END 2023-07-03 14:12 | disposition home or self-care (01) ==
LOC: HO.HHCL 14:11
PROVIDERS: Visit Provider Surgery Plastic and Reconstructive Surgery
DX: Z01.818 Encounter for other preprocedural examination (principal)
CPT/HCPCS: 36415; 80053; 83036; 84436; 84439; 84443; 84480; 84481; 84702; 85025; 85610; 85730

== ENCOUNTER 2023-07-12 09:05 | Outpatient (REF) | payer MEDICAID, SELFPAY ==
[2023-07-13 09:28] LABS: HIV AB/AG Nonreactive (Nonreactive); HIV Num 1 0.06 S/CO (0.00-0.99)
== END 2023-07-12 09:06 | disposition home or self-care (01) ==
LOC: HO.HHCL 09:05
PROVIDERS: Visit Provider Nurse Practitioner Primary Care
DX: Z01.818 Encounter for other preprocedural examination (principal)
CPT/HCPCS: 36415; 87389

== ENCOUNTER 2023-08-14 11:32 | Outpatient (REF) | payer MEDICAID, SELFPAY ==
[2023-08-14 13:43] LABS: MANUAL DIFF FLAG NO
[2023-08-14 13:56] LABS: Basophils Absolute Auto 0.1 X10*3/uL (0.0-0.2); Basophils Percent Auto 0.9 % (0-2); Eosinophils Absolute Auto 0.3 X10*3/uL (0.0-0.4); Eosinophils Percent Auto 3.9 % (0-4); Hemoglobin 11.6 g/dl (12.0-16.0); Imm Gran Abs Auto 0.03 X10*3/uL (0.00-0.03); Imm Gran Pct Auto 0.4 % (0.0-0.4); Mean Corpuscular HGB Conc 31.4 g/dl (31.0-35.0); Mean Corpuscular Hemoglobin 29.4 pg (27.0-33.0); Mean Corpuscular Volume 93.7 fL (80.0-98.0); Monocytes Absolute Auto 0.6 X10*3/uL (0.1-1.2); Monocytes Percent Auto 8.4 % (2-11); Neutrophils Absolute Auto 4.6 x10*3/uL (2.0-8.3); Neutrophils Percent Auto 60.4 % (45-73); Platelet Count 355 X10*3/uL (160-400); Red Blood Count 3.95 X10*6/uL (4.20-5.50); Red Cell Distribution Width 11.8 % (11.0-16.0); White Blood Count 7.7 X10*3/uL (4.8-10.8)
[2023-08-14 14:33] LABS: Anion Gap 13 (12-20)
[2023-08-14 14:44] LABS: Alanine Aminotransferase 9 U/L (0-31); Albumin Level 3.8 g/dL (3.5-5.0); Alkaline Phosphatase 55 U/L (39-117); Aspartate Amino Transferase 18 U/L (5-31); Bilirubin Direct 0.2 mg/dL (0.0-0.5); Bilirubin Total 0.7 mg/dL (0.0-1.0); Blood Urea Nitrogen 9 mg/dL (9-16); Calcium 9.3 mg/dL (8.4-10.2); Carbon Dioxide 25 mmol/L (22-29); Chloride 106 mmol/L (96-108); Estimated Glomerular Filt Rate > 60; Glucose Random 86 mg/dL (60-115); Lipase 24 U/L (8-78); Potassium 3.9 mmol/L (3.3-5.1); Sodium 140 mmol/L (135-145); Total Protein 7.1 g/dL (6.5-8.0)
== END 2023-08-14 11:33 | disposition home or self-care (01) ==
LOC: HO.HHCL 11:32
PROVIDERS: Visit Provider Family Medicine
DX: R10.31 Right lower quadrant pain (principal)
CPT/HCPCS: 36415; 80048; 80076; 83690; 85025

== ENCOUNTER 2023-08-15 13:04 | Outpatient (REF) | payer MEDICAID, SELFPAY | END 2023-08-15 13:05 | disposition home or self-care (01) | LOC: HO.HHCLNP 13:04 | PROVIDERS: Visit Provider Family Medicine | DX: R10.31 Right lower quadrant pain (principal) | CPT/HCPCS: 87338 ==

== ENCOUNTER 2023-09-03 13:21 | Outpatient (AMB) | payer MEDICAID, SELFPAY ==
[2023-09-03 13:31] VITALS: BP 126/89; BMI 33.6
--- NOTE | 2023-09-03 13:31 | A.OFFVIS_ITS ---
Intake Vital Signs 09/03/23 13:31 Height 5 ft Weight 172 lb BMI 33.6 BP 126/89 Blood Pressure Location Rt brachial Position Sitting Intake Visit Reasons: Pain on breasts since implant surgery in June Intake Note: Patient here to discuss pain under breasts after breast implant surgery on 07-23-23. Denies rash or nipple discharge. 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 This is for approximately 2 months ago in [place]. Patient is still having incisional discomfort which is slowly but steadily improving. She had a tele medicine evaluation both her floor surgeon a few weeks ago him still living was fine. She has also seen emergency department [facility]. Patient presents here for further evaluation. She has not had any discharge or redness or any other wound issues. Chart was reviewed and patient evaluated [facility] Medical History History of umbilical hernia Surgical History History of excision of mass History of cholecystectomy History of breast augmentation History of bilateral breast reduction surgery History of abdominoplasty Family History Mother Colon cancer Social History Alcohol intake: never Patient Tobacco Use Status: Never used Tobacco Physical Exam Vital Signs: Last Vital Signs BP 126/89 09/03/23 13:31 BMI result Body Mass Index 33.6 Chest Other: Patient has bilateral reduction mammoplasty scars all very well healed. No evidence of any cellulitis, infection, or stitch abscess bilaterally. Assessment & Plan Assessment & Plan (1) Postoperative pain: Code(s): G89.18 - Other acute postprocedural pain Plan The present time, and attenuation conservative therapy is recommended. She should consider wearing a supportive brassiere, Motrin p.r.n. pain, and follow- up with her plastic/reconstructive surgery should symptoms progress or worsen. Patient will follow-up p.r.n.. Coding Level of Care Code New Pt Level 4 (43749) Diagnoses Postoperative pain G89.18
== END 2023-09-03 13:40 | disposition home or self-care (01) ==
PROVIDERS: PCP Nurse Practitioner Primary Care; Visit Provider Surgery
DX: G89.18 Other acute postprocedural pain (principal)
CPT/HCPCS: 99204

== ENCOUNTER → 2023-09-03 13:21 | Outpatient (BNVA) | payer MEDICAID, SELFPAY | PROVIDERS: PCP Nurse Practitioner Primary Care; Visit Provider Surgery | DX: G89.18 Other acute postprocedural pain (principal); Z98.82 Breast implant status | CPT/HCPCS: 99202 ==

== ENCOUNTER 2023-09-12 12:31 | Outpatient (REF) | payer MEDICAID, SELFPAY ==
--- NOTE | ~2023-09-12 | CT_ITS ---
EXAMINATION: CT ABDOMEN AND PELVIS WITH CONTRAST CLINICAL INFORMATION: Right lower quadrant pain. COMPARISON: CT abdomen and pelvis 07/22/2022. TECHNIQUE: Multidetector volumetric images were obtained from the superior aspect of the liver through the pubic symphysis following administration 85 mL of Omnipaque 350 intravenous contrast. Sagittal and coronal reformatted images were obtained on the technologist's workstation. Oral contrast: No This CT examination was performed using dose optimization techniques as appropriate, variously including the following: *Automated exposure control *Adjustment of mA and/or kV according to patient size (this includes techniques or standardized protocols for targeted exams where dose is matched to indication/reason for exam; i.e. extremities or head) *Use of iterative reconstruction technique DLP: 660 mGy-cm FINDINGS: LUNG BASES: The visualized lung bases are unremarkable. LIVER, GALLBLADDER, AND BILIARY TREE: The liver is normal in size, shape, and attenuation. No focal hepatic lesion or biliary ductal dilatation is present. Cholecystectomy. PANCREAS: No discrete ductal dilatation. No discrete mass. SPLEEN: Normal; no mass. ADRENAL GLANDS: Normal; no mass. KIDNEYS AND URETERS: Symmetric nephrograms. No nephrolithiasis or hydronephrosis. Small simple cyst upper left kidney. No follow-up imaging is recommended. BLADDER: Unremarkable. GASTROINTESTINAL TRACT: Small hiatal hernia. The small bowel is normal in caliber. The large bowel is normal in caliber. Mild colonic diverticulosis. No evidence of diverticulitis. Normal appendix. ABDOMINAL WALL: Question prior abdominal wall hernia repair. Question prior panniculectomy. No significant hernia appreciated. Subcutaneous fat stranding consistent with medication injection sites. No hematoma. LYMPH NODES: No lymphadenopathy. VASCULAR: Mild aortoiliac atherosclerosis. PELVIC VISCERA: Hysterectomy. No pelvic mass. OSSEOUS STRUCTURES: No suspicious osseous lesions. CT/CT abdomen pelvis w IV con IMPRESSION: No explanation for right lower quadrant abdominal pain. Normal appendix. No nephrolithiasis or hydronephrosis. No discrete abdominal wall hernia. Mild colonic diverticulosis without evidence of diverticulitis. Fleischner guidelines were followed.
[2023-09-12] MEDS: iohexoL 350 MG/ML 100 ML INFUS..BTL IV (15:08)
[2023-09-12] MEDS: Barium Sulfate Oral (Vanilla) 450 ML ORAL.SUSP 900 ML PO (15:09)
== END 2023-09-12 12:32 | disposition home or self-care (01) ==
LOC: HO.CT 12:31
PROVIDERS: PCP Family Medicine; Visit Provider Family Medicine
DX: R10.31 Right lower quadrant pain (principal); R10.33 Periumbilical pain
CPT/HCPCS: 74177; Q9967

== ENCOUNTER 2023-11-12 15:36 | Outpatient (REF) | payer MEDICAID, SELFPAY ==
--- NOTE | ~2023-11-12 | MM_ITS ---
EXAMINATION: MM SCREENING DIGITAL BREAST TOMOSYNTHESIS, BILATERAL WITH BREAST IMPLANTS CLINICAL INFORMATION: Screening. Asymptomatic. The patient is status post reduction mammoplasty in the remote past. COMPARISON: Mammography: This study is compared with prior exams dating back to 2018. TECHNIQUE: Digital mammography is performed in craniocaudal and mediolateral oblique views along with computer-aided detection (CAD). Digital breast tomosynthesis is performed in implant-displaced craniocaudal and implant-displaced mediolateral oblique views along with computer-aided detection (CAD). Synthesized 2D images are generated from the tomosynthesis. FINDINGS: The breasts are heterogeneously dense, which may obscure small masses (ACR BI-RADS breast composition Category c). There are bilateral, mammographically intact, retropectoral saline breast implants. There are post reduction changes in each breast. There are no significant masses, abnormal calcifications, or other abnormalities. MM/MM tomosynthesis screen imp BI IMPRESSION: There are no significant changes from prior study. ASSESSMENT: BI-RADS BI-RADS 2 - Benign Findings RECOMMENDATION: Routine annual mammography screening. 1 year F/U This patient's information was entered into a reminder system with a target due date for their next mammogram.
== END 2023-11-12 15:37 | disposition home or self-care (01) ==
LOC: HO.MAMMO 15:36
PROVIDERS: PCP Nurse Practitioner Primary Care; Visit Provider Nurse Practitioner Primary Care
DX: Z12.31 Encounter for screening mammogram for malignant neoplasm of breast (principal)
CPT/HCPCS: 77063; 77067

== ENCOUNTER → 2023-11-12 16:30 | Outpatient (BNV) | payer MEDICAID, SELFPAY | PROVIDERS: PCP Nurse Practitioner Primary Care; Visit Provider Radiology Diagnostic Radiology | DX: Z12.31 Encounter for screening mammogram for malignant neoplasm of breast (principal) | CPT/HCPCS: 77063; 77067 ==

== ENCOUNTER 2023-11-16 09:21 | Outpatient (REF) | payer MEDICAID, SELFPAY ==
[2023-11-16 11:24] LABS: MANUAL DIFF FLAG NO
[2023-11-16 11:55] LABS: Basophils Absolute Auto 0.1 X10*3/uL (0.0-0.2); Basophils Percent Auto 0.7 % (0-2); Eosinophils Absolute Auto 0.1 X10*3/uL (0.0-0.4); Eosinophils Percent Auto 0.9 % (0-4); Hematocrit 39.7 % (37.0-47.0); Hemoglobin 12.3 g/dl (12.0-16.0); Imm Gran Abs Auto 0.08 X10*3/uL (0.00-0.03); Imm Gran Pct Auto 0.8 % (0.0-0.4); Lymphocytes Absolute Auto 2.6 X10*3/uL (1.2-4.9); Lymphocytes Percent Auto 25.2 % (20-40); Mean Corpuscular Hemoglobin 28.7 pg (27.0-33.0); Mean Corpuscular Volume 92.5 fL (80.0-98.0); Mean Platelet Volume 10.8 fL (9.4-12.3); Monocytes Absolute Auto 0.8 X10*3/uL (0.1-1.2); Monocytes Percent Auto 8.3 % (2-11); Neutrophils Absolute Auto 6.5 x10*3/uL (2.0-8.3); Neutrophils Percent Auto 64.1 % (45-73); Platelet Count 357 X10*3/uL (160-400); Red Blood Count 4.29 X10*6/uL (4.20-5.50); Red Cell Distribution Width 12.6 % (11.0-16.0); White Blood Count 10.1 X10*3/uL (4.8-10.8)
[2023-11-16 13:21] LABS: Ferritin 277 ng/mL (10-250)
[2023-11-16 13:23] LABS: Iron 120 mcg/dL (30-160); Percent Iron Saturation 38 % (15-50); Total Iron Binding Capacity 314 mcg/dL (228-428); Unsaturated Iron Binding 194 ug/dL
[2023-11-17 04:17] LABS: ~HepC Num1 0.12 S/CO (0.00-0.79); ~Hepatitis C Antibody Nonreactive (Nonreactive)
[2023-11-19 15:52] LABS: Transferrin 282 mg/dL (188-341)
== END 2023-11-16 09:22 | disposition home or self-care (01) ==
LOC: HO.HHCL 09:21
PROVIDERS: Visit Provider Nurse Practitioner Primary Care
DX: R53.83 Other fatigue (principal); R79.89 Other specified abnormal findings of blood chemistry
CPT/HCPCS: 36415; 82728; 83540; 84466; 85025; 86803

== ENCOUNTER 2023-12-03 11:51 | Outpatient (REF) | payer MEDICAID, SELFPAY ==
[2023-12-05 22:09] LABS: TS Negative Control Passed; TS Panel A 0; TS Panel B 0; TS Positive Control Passed; TSpotTB Negative (Negative)
== END 2023-12-03 11:52 | disposition home or self-care (01) ==
LOC: HO.HHCL 11:51
PROVIDERS: Visit Provider Nurse Practitioner Primary Care
DX: Z11.1 Encounter for screening for respiratory tuberculosis (principal)
CPT/HCPCS: 36415; 86481

== ENCOUNTER 2024-01-28 15:29 | Outpatient (REF) | payer MEDICAID, SELFPAY ==
[2024-01-28 15:56] LABS: MANUAL DIFF FLAG NO
[2024-01-28 16:21] LABS: Basophils Absolute Auto 0.1 X10*3/uL (0.0-0.2); Basophils Percent Auto 0.8 % (0-2); Eosinophils Absolute Auto 0.2 X10*3/uL (0.0-0.4); Eosinophils Percent Auto 2.7 % (0-4); Hematocrit 37.5 % (37.0-47.0); Hemoglobin 11.6 g/dl (12.0-16.0); Imm Gran Abs Auto 0.04 X10*3/uL (0.00-0.03); Imm Gran Pct Auto 0.5 % (0.0-0.4); Lymphocytes Absolute Auto 2.3 X10*3/uL (1.2-4.9); Lymphocytes Percent Auto 26.2 % (20-40); Mean Corpuscular HGB Conc 30.9 g/dl (31.0-35.0); Mean Corpuscular Hemoglobin 28.6 pg (27.0-33.0); Mean Corpuscular Volume 92.4 fL (80.0-98.0); Mean Platelet Volume 10.7 fL (9.4-12.3); Monocytes Absolute Auto 0.9 X10*3/uL (0.1-1.2); Monocytes Percent Auto 9.9 % (2-11); Neutrophils Absolute Auto 5.2 x10*3/uL (2.0-8.3); Neutrophils Percent Auto 59.9 % (45-73); Platelet Count 304 X10*3/uL (160-400); Red Blood Count 4.06 X10*6/uL (4.20-5.50); Red Cell Distribution Width 12.5 % (11.0-16.0); White Blood Count 8.7 X10*3/uL (4.8-10.8)
[2024-01-28 16:44] LABS: Alanine Aminotransferase 8 U/L (0-31); Albumin Level 3.9 g/dL (3.5-5.0); Alkaline Phosphatase 58 U/L (39-117); Anion Gap 9 (12-20); Aspartate Amino Transferase 17 U/L (5-31); Bilirubin Total 0.4 mg/dL (0.0-1.0); Blood Urea Nitrogen 12 mg/dL (9-16); C Reactive Protein 1.52 mg/dL (< or = 0.50); Calcium 9.6 mg/dL (8.4-10.2); Carbon Dioxide 31 mmol/L (22-29); Chloride 105 mmol/L (96-108); Estimated Glomerular Filt Rate > 60; Glucose Random 80 mg/dL (60-115); Sodium 141 mmol/L (135-145); Total Protein 7.5 g/dL (6.5-8.0)
[2024-01-28 17:08] LABS: Erythrocyte Sedimentation Rate 37 MM/HR (0-20)
== END 2024-01-28 15:30 | disposition home or self-care (01) ==
LOC: HO.HHCL 15:29
PROVIDERS: Visit Provider Nurse Practitioner Family
DX: R10.9 Unspecified abdominal pain (principal); G89.29 Other chronic pain; M54.50 Low back pain, unspecified
CPT/HCPCS: 36415; 80053; 85025; 85652; 86140

== ENCOUNTER 2024-02-07 12:05 | Outpatient (REF) | payer MEDICAID, SELFPAY ==
[2024-02-07 13:58] LABS: Rheumatoid Factor < 13.0 IU/mL (<15.0)
[2024-02-08 14:43] LABS: Cyclic Citrullinated Peptide <16 UNITS
[2024-02-10 10:54] LABS: Anti Nuclear Antibody Screen NEGATIVE (NEGATIVE)
== END 2024-02-07 12:06 | disposition home or self-care (01) ==
LOC: HO.HHCL 12:05
PROVIDERS: Visit Provider Nurse Practitioner Family
DX: M25.50 Pain in unspecified joint (principal); G89.29 Other chronic pain
CPT/HCPCS: 36415; 86038; 86200; 86431

== ENCOUNTER 2024-02-19 10:00 | Outpatient (AMB) | payer MEDICAID, SELFPAY ==
--- NOTE | 2024-02-19 10:04 | A.OFFVIS_ITS ---
Vital Signs 02/19/24 10:09 Height 5 ft Weight 175 lb BMI 34.2 BP 112/80 Blood Pressure Location Rt brachial Position Sitting Pulse 73 Intake Visit Reasons: chronic pain syndrome Intake Note: Patient referred for chronic pain syndrome after lipo and tummy tuck surgery 3yrs ago. Feels like abd is larger even after surgery. Patient c/o: on and off pain on abd that spreads to back. 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 She has had multiple visits to the ER as well as to this clinic and had several CT scans which demonstrated no acute pathology. Her complaints were mainly of abdominal wall most likely secondary to the abdominal plasty with scarring and cicatrization and cutaneous nerves. In the meantime, she has tolerating a diet. He is having regular bowel habits. Chart was reviewed the patient evaluate [facility] Medical History History of umbilical hernia Surgical History History of excision of mass History of cholecystectomy History of breast augmentation History of bilateral breast reduction surgery History of abdominoplasty Family History Mother Colon cancer Social History Alcohol intake: never Patient Tobacco Use Status: Never used Tobacco Physical Exam Vital Signs: Last Vital Signs Pulse 73 02/19/24 10:09 BP 112/80 02/19/24 10:09 BMI result Body Mass Index 34.2 GI Other: Abdominal plasty scar lower abdomen. Abdomen is soft, with no evidence of any guarding, rebound, rigidity. She has abdominal wall tenderness suprapubically again most likely related to her prior abdominal plasty surgery. Assessment & Plan Assessment & Plan (1) Abdominal wall pain: Code(s): R10.9 - Unspecified abdominal pain Category: Surgical Plan In light of multiple clinic and E visits along with several radiographic studies including ultrasound and CT scan, there are no acute surgical issues to be addressed. It was again explained to the patient that her symptoms are related to her abdominoplasty surgery. No interventions to be performed by me to help resolve her symptoms. She should take Tylenol or Motrin periodically p.r.n. pain. All questions answered. Patient otherwise follow-up p.r.n..
[2024-02-19 10:09] VITALS: BP 112/80; PULSE 73; BMI 34.2
== END 2024-02-19 10:17 | disposition home or self-care (01) ==
PROVIDERS: PCP Nurse Practitioner Primary Care; Visit Provider Surgery
DX: R10.9 Unspecified abdominal pain (principal)
CPT/HCPCS: 99214

== ENCOUNTER → 2024-02-19 10:00 | Outpatient (BNVA) | payer MEDICAID, SELFPAY | PROVIDERS: PCP Nurse Practitioner Primary Care; Visit Provider Surgery | DX: R10.9 Unspecified abdominal pain (principal) | CPT/HCPCS: 99212 ==

== ENCOUNTER 2024-05-07 17:44 | Emergency (ER) | payer MEDICAID, SELFPAY ==
--- NOTE | ~2024-05-07 | US_ITS ---
Examination: US appendix Indication: RLQ pain Comparison: 09/12/2023 CT scan Technique: Multiple sonographic views the right right lower quadrant were obtained in the region the patient's pain. Findings: Appendix is not able to be visualized and remains indeterminant. No focal inflammatory changes are seen however in the right lower quadrant. No abnormal soft tissue mass or fluid collection identified. The visualized portion of the right kidney unremarkable. Right ovary is not visualized in this patient status post hysterectomy. The gallbladder is also surgically absent. US/US appendix Impression: Appendix is not able to be visualized and remains indeterminant. No focal inflammatory changes however in the right lower quadrant.
--- NOTE | ~2024-05-07 | CT_ITS ---
EXAMINATION: CT ABDOMEN AND PELVIS WITH CONTRAST CLINICAL INFORMATION: Right lower quadrant pain. Concern for appendicitis. COMPARISON: None available. TECHNIQUE: Multidetector volumetric images were obtained from the superior aspect of the liver through the pubic symphysis following administration 85 mL of Omnipaque 350 intravenous contrast. Sagittal and coronal reformatted images were obtained on the technologist's workstation. Oral contrast: No This CT examination was performed using dose optimization techniques as appropriate, variously including the following: *Automated exposure control *Adjustment of mA and/or kV according to patient size (this includes techniques or standardized protocols for targeted exams where dose is matched to indication/reason for exam; i.e. extremities or head) *Use of iterative reconstruction technique DLP: 640 mGy-cm FINDINGS: LUNG BASES: There is minimal atelectatic change at both lung bases. LIVER, GALLBLADDER, AND BILIARY TREE: The liver is normal in size, shape, and attenuation. No focal hepatic lesion or biliary ductal dilatation is present. The gallbladder is not seen. PANCREAS: Unremarkable. SPLEEN: Unremarkable. ADRENAL GLANDS: Unremarkable. KIDNEYS AND URETERS: The kidneys are normal in size, shape, and attenuation. No hydronephrosis, hydroureter, or calculi seen. No perinephric stranding. BLADDER: Unremarkable. GASTROINTESTINAL TRACT: There is retained stool. The appendix is visualized and is within normal limits. ABDOMINAL WALL: No significant hernia is appreciated. LYMPH NODES: Normal. VASCULAR: Unremarkable. PELVIC VISCERA: Unremarkable. OSSEOUS STRUCTURES: Unremarkable. CT/CT abdomen pelvis w IV con IMPRESSION: No significant abnormality. The appendix is visualized and is within normal limits. Fleischner guidelines were followed.
[2024-05-07 18:21] VITALS: BP 128/86; PULSE 80; RESP 18; TEMP 36.2; O2SAT 97; BMI 31.0
--- NOTE | 2024-05-07 18:23 | ED_ITS ---
HPI - Abdominal Pain General Chief Complaint: Abdominal Pain Stated Complaint: abd pain Time Seen by Provider: 05/08/24 01:22 Source: patient Mode of arrival: ambulatory Limitations: language barrier (Azerbaijani speaking only) History of Present Illness ED Provider: Dr. Kobi Gaona HPI narrative: 43-year-old female with a history of hyperlipidemia, asthma, anxiety, kidney stones, fibromyalgia, sciatica who presents emergency department for evaluation of right lower quadrant and right flank pain x1 week. The patient states that she has had right lower quadrant pain for proximally 1 week. She states over the last 2 days she was also developed right flank pain. She states the pain is a constant, burning, stabbing like pain which is 9/10. Patient had associated nausea and vomited once. She denied fever, chills, change in her bowel movements, frequency or dysuria. Patient's PCP was concerned that the patient might have appendicitis and advised the patient to go to the emergency department to be seen. Past surgical history liposuction, tummy tuck, hernia repair, ovarian cyst removal Related Data Home Medications ?Medication ?Instructions ?Recorded ?Confirmed cholecalciferol (vitamin D3) 25 25 mcg PO DAILY 10/06/21 01/12/23 mcg (1,000 unit) capsule hydroxyzine HCl 10 mg tablet 10 - 20 mg PO Q6H PRN anxiety 10/06/21 01/12/23 lancets 28 gauge (FreeStyle #100 ea 10/06/21 01/12/23 Lancets) omeprazole 20 mg capsule,delayed 20 mg PO DAILY 10/06/21 01/12/23 release venlafaxine 150 mg 150 mg PO DAILY 10/06/21 01/12/23 capsule,extended release 24 hr Previous Rx's ?Medication ?Instructions ?Recorded acetaminophen 500 mg tablet 1,000 mg (2 x 500 mg) PO Q6H PRN 05/08/24 (Tylenol Extra Strength) fever or pain #20 tabs ibuprofen 400 mg tablet 400 mg PO TID PRN fever or pain 05/08/24 #30 tabs morphine 15 mg immediate release 15 mg PO Q4-6H PRN pain #10 tabs 05/08/24 tablet Allergies Allergy/AdvReac Type Severity Reaction Status Date / Time pollen Allergy Unknown Unknown Uncoded 05/07/24 18:24 Review of Systems Review of Systems Yes all other systems are reviewed and are negative [facility] Past Medical History [facility] Narrative: Social history: She denies tobacco, alcohol and drug use Medical History History of umbilical hernia Surgical History History of excision of mass History of cholecystectomy History of breast augmentation History of bilateral breast reduction surgery History of abdominoplasty Family History Family History Mother Colon cancer Social History Social History Alcohol intake: never Patient Tobacco Use Status: Never used Tobacco Smoked in Last 30 Days: No Advance Directives: No Advance Directives Information Provided: Yes Do you have a plan to hurt others: No Plan Physical Exam ED Vital Signs: Vital Signs - 24 hr 05/07/24 18:21 05/07/24 22:23 05/08/24 00:41 Temperature 97.1 F 97.9 F 97.9 F Pulse Rate 80 79 61 Respiratory Rate 18 16 20 Blood Pressure 128/86 136/92 H 146/80 H Pulse Oximetry 97 97 99 Oxygen Delivery Method Room Air Room Air Room Air 05/08/24 03:06 Temperature 97.7 F Pulse Rate 62 Respiratory Rate 16 Blood Pressure 135/72 Pulse Oximetry 97 Oxygen Delivery Method Room Air BMI result Body Mass Index 31.0 Vital signs were normal Exam: General: Awake, alert in no distress Head: Normocephalic, atraumatic EENT: PERRL, Lids normal, sclera normal, conjunctiva normal, nose normal , ears normal, throat without erythema or exudates Neck: Supple, no adenopathy Lung: breath sounds symmetric, no wheezing, rales or rhonchi Chest: symmetric movement, nontender Heart: regular rate and rhythm, normal S1, S2 no murmurs or rubs Abdomen: soft, mild to moderate left lower quadrant tenderness, moderate right lower quadrant tenderness, normoactive bowel sounds, Back: no vertebral tenderness, no CVAT Extremities: no deformities, moves all extremities symmetrically Neuro: Awake, alert, oriented, normal speech, cranial nerves intact, moves all extremities symmetrically Psych: Pleasant, cooperative Course Course Course Narrative: This is an E: Additional HPI, ROS, PE not included below will be deferred to primary provider. RME assessment and note performed by: Shelly Daly PA-C This is a 8-msiw-hpq-female, with a hx of prediabetes, spinal stenosis, hysterectomy, and septic arthritis in back, who presents emergency department from urgent care for rule out appendicitis. She developed right lower quadrant pain 1 week ago with associated nausea. Plan: Labs, ultrasound, urinalysis Medical Decision Making Medical Decision Making MDM Narrative: 43-year-old female with a history of hyperlipidemia, asthma, anxiety, kidney stones, fibromyalgia, sciatica who presents emergency department for evaluation of right lower quadrant and right flank pain x1 week. Vital signs were normal, physical examination did reveal left lower and right lower quadrant tenderness Differential diagnosis: ?Includes but is not limited to appendicitis, diverticulitis, renal colic, ureteral stone, urinary tract infection, pyelonephritis Following evaluation was ordered: CBC, BNP, liver panel, lipase, magnesium, troponin, urinalysis, right lower quadrant ultrasound evaluate appendix Patient was initially treated with the following: IV insert, normal saline x1 L, morphine 4 mg IV, Zofran 4 mg IV Course: 01:53 My interpretation patient's laboratory evaluation is as follows: CBC was normal. CMP was normal. Troponin was below detectable limits. Lipase was normal. Ultrasound was unable to visualize the appendix. Given her presentation and abdominal tenderness, I did order a CT scan of the abdomen pelvis with IV contrast to evaluate for appendicitis. 05:[address] scan of the abdomen pelvis did not reveal a clear etiology for the patient's pain. The patient had minimal relief of her pain with the 1st dose of morphine. She was ordered to get morphine 4 mg IV. I did discuss the negative results with the patient. Patient was prescribed ibuprofen and Tylenol and for pain not relieved by these medications she was prescribed morphine. She was given printed and verbal instructions. I did tell her for pain did not improve in 24 hours or if her symptoms got worse she should return to the emergency department for re-evaluation Admission/Observation Consideration of admission/observation: Escalation of care including admission/observation considered Lab Data [facility] Lab Attestation statement: I reviewed the patient's lab results. 05/07/24 18:36 05/07/24 18:36 Labs: Lab Results 05/07/24 05/08/24 Range/Units 18:36 02:34 WBC 8.9 (4.8-10.8) X10*3/uL RBC 4.07 L (4.20-5.50) X10*6/uL Hgb 12.2 (12.0-16.0) g/dl Hct 36.7 L (37.0-47.0) % MCV 90.2 (80.0-98.0) fL MCH 30.0 (27.0-33.0) pg MCHC 33.2 (31.0-35.0) g/dl RDW 12.9 (11.0-16.0) % Plt Count 296 (160-400) X10*3/uL MPV 9.9 (9.4-12.3) fL Immature Gran % (Auto) 0.6 H (0.0-0.4) % Neut % (Auto) 61.6 (45-73) % Lymph % (Auto) 25.9 (20-40) % [place] % (Auto) 9.2 (2-11) % Eos % (Auto) 2.0 (0-4) % Baso % (Auto) 0.7 (0-2) % Lymph # (Auto) 2.3 (1.2-4.9) X10*3/uL [place] # (Auto) 0.8 (0.1-1.2) X10*3/uL Eos # (Auto) 0.2 (0.0-0.4) X10*3/uL Baso # (Auto) 0.1 (0.0-0.2) X10*3/uL Abs Immat Gran (auto) 0.05 H (0.00-0.03) X10*3/uL Absolute Neuts (auto) 5.5 (2.0-8.3) x10*3/uL Absolute Nucleated RBC 0.000 (0.0-0.012) X10*3/uL Nucleated RBC % (auto) 0.0 (0.0-0.2) /100WBC Sodium 141 (135-145) mmol/L Potassium 4.2 (3.3-5.1) mmol/L Chloride 106 (96-108) mmol/L Carbon Dioxide 27 (22-29) mmol/L Anion Gap 12 (12-20) BUN 9 (9-16) mg/dL Creatinine 0.69 (0.5-1.4) mg/dL Estim Creat Clear Calc 102.7 Estimated GFR > 60 Random Glucose 98 (60-115) mg/dL Calcium 9.4 (8.4-10.2) mg/dL Magnesium 2.1 (1.6-2.6) mg/dL Total Bilirubin 0.8 (0.0-1.0) mg/dL Direct Bilirubin 0.2 (0.0-0.5) mg/dL AST 21 (5-31) U/L ALT 9 (0-31) U/L Alkaline Phosphatase 60 (39-117) U/L Troponin I High Sens < 2.7 (<3.5-17.0) ng/L Total Protein 7.6 (6.5-8.0) g/dL Albumin 4.1 (3.5-5.0) g/dL Lipase 49 (8-78) U/L Urine Color Dark Yellow Urine Appearance Clear Urine pH 5.5 (5.0-9.0) Ur Specific [place] >= 1.030 H (1.005-1.025) Urine Protein Negative (Neg-Trace) mg/dL Urine Glucose (UA) Negative (Negative) mg/dL Urine Ketones Trace (Negative) mg/dL Urine Blood Negative (Negative) Urine Nitrite Negative (Negative) Ur Leukocyte Esterase Negative (Negative) Radiology Impression Discussion of test interpretation with radiology: I have reviewed the radiologist's reading. Radiologist Impression: US appendix Impression: Appendix is not able to be visualized and remains indeterminant. No focal inflammatory changes however in the right lower quadrant. Dictated By: Zion Schafer MD CT abdomen pelvis w IV con IMPRESSION: No significant abnormality. The appendix is visualized and is within normal limits. Fleischner guidelines were followed. Dictated By: Bolivar Claros MD Prescription Management I considered prescription management with: Pain Medication Medications Administered Discontinued Medications Generic Name Dose Route Start Last Admin Trade Name Freq PRN Reason Stop Dose Admin Sodium Chloride 1,000 mls @ 999 mls/hr 05/08/24 01:34 05/08/24 01:47 Ns IV 05/08/24 02:34 999 mls/hr .Q1H1M STA Administration Sodium Chloride 1,000 mls @ 999 mls/hr 05/08/24 02:48 05/08/24 03:24 Ns IV 05/08/24 03:48 999 mls/hr .Q1H1M STA Administration Iohexol 85 ml 05/08/24 02:08 05/08/24 02:08 Iohexol 350 Mg/Ml 100 Ml Infus..Btl IV 05/08/24 02:09 85 ml ONCE ONE Administration Morphine Sulfate 4 mg 05/08/24 01:34 05/08/24 01:49 Morphine Sulfate 4 Mg/Ml Cartridge IVPUSH 05/08/24 01:35 4 mg ONCE STA Administration Protocol Ondansetron HCl 4 mg 05/08/24 01:34 05/08/24 01:49 Ondansetron Hcl 4 Mg/2 Ml Vial IVPUSH 05/08/24 01:35 4 mg ONCE ONE Administration Discharge Plan Discharge Clinical Impression: Abdominal pain Patient Disposition: Home, Self-Care Instructions: Abdominal Pain (ED) Additional Instructions: Your blood work was unremarkable Your EKG was unremarkable CT scan of your abdomen pelvis with IV contrast did not reveal a clear cause for your pain Take ibuprofen 200 mg pills, 2 pills every 6 hours as needed for pain. Take Tylenol (acetaminophen) 2 pills every 6 hours as needed for pain. For pain not relieved by ibuprofen or Tylenol take morphine 15 mg pills, 1 pill every 6 hours as needed for pain. This medication will make you sleepy, do not drive or work while taking this medication. Morphine is a narcotic medication and can be addicting. If you are concerned about addiction you can ask the pharmacist for less pills or do not get this prescription filled. If your pain is not significantly better in 24 hours or if your symptoms get worse in any way he should return to the emergency department for re-evaluation. Follow-up with your doctor in 2 days. Prescriptions: New acetaminophen [Tylenol Extra Strength] 500 mg tablet 1,000 mg PO Q6H PRN (Reason: fever or pain) Qty: 20 0RF ibuprofen 400 mg tablet 400 mg PO TID PRN (Reason: fever or pain) Qty: 30 0RF morphine 15 mg tablet 15 mg PO Q4-6H PRN (Reason: pain) Qty: 10 0RF Rx Instructions: The patient may ask for partial fill; Partial Fill upon patient request. No Action hydroxyzine HCl 10 mg tablet 10 - 20 mg PO Q6H PRN (Reason: anxiety) venlafaxine 150 mg capsule,extended release 24hr 150 mg PO DAILY cholecalciferol (vitamin D3) 25 mcg (1,000 unit) capsule 25 mcg PO DAILY (DME) lancets [FreeStyle Lancets] 28 gauge misc See Rx Instructions topical QAM Qty: 100 Rx Instructions: As directed omeprazole 20 mg capsule,delayed release(DR/EC) 20 mg PO DAILY Print Language: Azerbaijani
[2024-05-07 18:41] LABS: MANUAL DIFF FLAG NO
[2024-05-07 18:42] LABS: Basophils Absolute Auto 0.1 X10*3/uL (0.0-0.2); Basophils Percent Auto 0.7 % (0-2); Eosinophils Absolute Auto 0.2 X10*3/uL (0.0-0.4); Hematocrit 36.7 % (37.0-47.0); Hemoglobin 12.2 g/dl (12.0-16.0); Imm Gran Abs Auto 0.05 X10*3/uL (0.00-0.03); Imm Gran Pct Auto 0.6 % (0.0-0.4); Lymphocytes Absolute Auto 2.3 X10*3/uL (1.2-4.9); Lymphocytes Percent Auto 25.9 % (20-40); Mean Corpuscular HGB Conc 33.2 g/dl (31.0-35.0); Mean Corpuscular Volume 90.2 fL (80.0-98.0); Mean Platelet Volume 9.9 fL (9.4-12.3); Monocytes Absolute Auto 0.8 X10*3/uL (0.1-1.2); Monocytes Percent Auto 9.2 % (2-11); Neutrophils Absolute Auto 5.5 x10*3/uL (2.0-8.3); Neutrophils Percent Auto 61.6 % (45-73); Platelet Count 296 X10*3/uL (160-400); Red Blood Count 4.07 X10*6/uL (4.20-5.50); Red Cell Distribution Width 12.9 % (11.0-16.0); White Blood Count 8.9 X10*3/uL (4.8-10.8)
[2024-05-07 18:56] LABS: Alanine Aminotransferase 9 U/L (0-31); Albumin Level 4.1 g/dL (3.5-5.0); Alkaline Phosphatase 60 U/L (39-117); Anion Gap 12 (12-20); Aspartate Amino Transferase 21 U/L (5-31); Bilirubin Direct 0.2 mg/dL (0.0-0.5); Bilirubin Total 0.8 mg/dL (0.0-1.0); Blood Urea Nitrogen 9 mg/dL (9-16); Calcium 9.4 mg/dL (8.4-10.2); Carbon Dioxide 27 mmol/L (22-29); Chloride 106 mmol/L (96-108); Creatinine Clr Calc Pharmacy 102.7; Estimated Glomerular Filt Rate > 60; Glucose Random 98 mg/dL (60-115); Lipase 49 U/L (8-78); Magnesium 2.1 mg/dL (1.6-2.6); Potassium 4.2 mmol/L (3.3-5.1); Sodium 141 mmol/L (135-145); Total Protein 7.6 g/dL (6.5-8.0)
[2024-05-07 19:04] LABS: Troponin-I High Sensitivity < 2.7 ng/L (<3.5-17.0)
[2024-05-07 22:23] VITALS: BP 136/92; PULSE 79; RESP 16; TEMP 36.6; O2SAT 97
[2024-05-08 00:41] VITALS: BP 146/80; PULSE 61; RESP 20; TEMP 36.6; O2SAT 99
[2024-05-08] MEDS: 0.9 % Sodium Chloride 1,000 ML 999 ML IV ×2 (01:47→03:24)
[2024-05-08] MEDS: Morphine Sulfate 4 MG/ML CARTRIDGE IVPUSH ×2 (01:49→06:16)
[2024-05-08] MEDS: ondansetron HCL 4 MG/2 ML VIAL IVPUSH (01:49)
[2024-05-08] MEDS: iohexoL 350 MG/ML 100 ML INFUS..BTL 85 ML IV (02:08)
[2024-05-08 02:43] LABS: Appearance Urine Clear; Color Urine Dark Yellow; Glucose Urine UA Negative (Negative); Leukocyte Esterase Urine Negative (Negative); Nitrite Urine Negative (Negative); PH 5.5 (5.0-9.0); Specific Gravity - Urine >= 1.030 (1.005-1.025); Urine Blood Negative (Negative); Urine Ketones Trace mg/dL (Negative); Urine Protein Negative (Neg-Trace)
[2024-05-08 03:06] VITALS: BP 135/72; PULSE 62; RESP 16; TEMP 36.5; O2SAT 97
[2024-05-08 06:00] VITALS: BP 117/71; PULSE 59; RESP 16; TEMP 37.2; O2SAT 93
[2024-05-08 06:33] VITALS: BP 116/69; PULSE 63; RESP 15; TEMP 36.6; O2SAT 99
== END 2024-05-08 06:42 | disposition home or self-care (01) ==
PROVIDERS: Physician Assistant Medical; Emergency Provider Emergency Medicine Emergency Medical Services; PCP Nurse Practitioner Primary Care
DX: R10.9 Unspecified abdominal pain (principal); E78.5 Hyperlipidemia, unspecified; Z79.899 Other long term (current) drug therapy
CPT/HCPCS: 36415; 74177; 76705; 80048; 80076; 81003; 83690; 83735; 84484; 85025; 96361; 96374; 96375; 96376; 99284; 99285; J2270; J2405; Q9967

== ENCOUNTER 2024-05-09 11:26 | Inpatient (IN) | payer MEDICAID, SELFPAY ==
--- NOTE | ~2024-05-09 | MR_ITS ---
EXAMINATION: MR ABDOMEN WITHOUT CONTRAST CLINICAL INFORMATION: Transaminitis, evaluate for choledocholithiasis COMPARISON: Abdominal ultrasound on 05/09/2024 TECHNIQUE: MR abdomen is performed without gadolinium contrast. FINDINGS: LUNG BASES: The visualized lung bases are unremarkable. LIVER, GALLBLADDER, AND BILIARY TREE: The liver is normal in size, smooth in contour, and normal in signal. No focal hepatic lesion or biliary ductal dilatation is present. The gallbladder is absent. No intra or extrahepatic biliary ductal dilatation. The common bile duct measures 0.7 cm. PANCREAS: Unremarkable. SPLEEN: Unremarkable. ADRENAL GLANDS: Unremarkable. KIDNEYS AND URETERS: The kidneys are normal in size and shape. No hydronephrosis. No perinephric stranding. There is a 0.8 cm left simple cyst which does not require follow-up. GASTROINTESTINAL TRACT: No bowel obstruction. No ascites or fluid collection. ABDOMINAL WALL: No significant hernia is appreciated. LYMPH NODES: No lymphadenopathy. VASCULAR: Unremarkable. OSSEOUS STRUCTURES: Marrow signal normal. MR/MR MRCP IMPRESSION: Status post cholecystectomy. No evidence of choledocholithiasis.
--- NOTE | ~2024-05-09 | US_ITS ---
EXAMINATION: US ABDOMEN LIMITED CLINICAL INFORMATION: Right abdominal pain. Increased LFTs. COMPARISON: CT abdomen pelvis dated 05/08/2024. TECHNIQUE: Real-time imaging of the right upper quadrant abdominal viscera. The liver and common bile duct were evaluated. FINDINGS: LIVER: The liver is normal in size. The liver contour is normal. Parenchymal echogenicity is increased. No focal hepatic lesion. There is no intrahepatic biliary duct dilatation seen. GALLBLADDER: Surgically absent. COMMON BILE DUCT: Normal in caliber measuring 0.6 cm in diameter. US/US abdomen limited IMPRESSION: The liver demonstrates very mild increased echogenicity which may represent some degree of hepatic steatosis. The gallbladder is surgically absent.
[2024-05-09 11:36] VITALS: BP 113/82; PULSE 70; RESP 20; TEMP 36.2; O2SAT 97; BMI 31.0
--- NOTE | 2024-05-09 11:43 | ED.GENADULT ---
HPI - General Adult General Chief complaint: General Medical Stated complaint: Lung pain Time Seen by Provider: 05/09/24 12:02 Source: patient Mode of arrival: ambulatory Limitations: no limitations History of Present Illness HPI narrative: Patient is a 43-year-old female who presents emergency department for evaluation of persistent right-sided abdominal and back/ flank pain radiating down the lower back. reports that she feels pain in my lung pointing to her lower scapular region, but denies shortness of breath or chest pain, no recent URI symptoms. Reports that she was seen in the emergency department yesterday, and taking ibuprofen morphine and Zofran. This does help her pain but the pain returns after a few hours. She reports that she was advised to come back to the emergency department 24 hours of her pain had not resolved. Related Data Home Medications ?Medication ?Instructions ?Recorded ?Confirmed cholecalciferol (vitamin D3) 25 25 mcg PO DAILY 10/06/21 01/12/23 mcg (1,000 unit) capsule hydroxyzine HCl 10 mg tablet 10 - 20 mg PO Q6H PRN anxiety 10/06/21 01/12/23 lancets 28 gauge (FreeStyle #100 ea 10/06/21 01/12/23 Lancets) omeprazole 20 mg capsule,delayed 20 mg PO DAILY 10/06/21 01/12/23 release venlafaxine 150 mg 150 mg PO DAILY 10/06/21 01/12/23 capsule,extended release 24 hr Previous Rx's ?Medication ?Instructions ?Recorded acetaminophen 500 mg tablet 1,000 mg (2 x 500 mg) PO Q6H PRN 05/08/24 (Tylenol Extra Strength) fever or pain #20 tabs ibuprofen 400 mg tablet 400 mg PO TID PRN fever or pain 05/08/24 #30 tabs morphine 15 mg immediate release 15 mg PO Q4-6H PRN pain #10 tabs 05/08/24 tablet Allergies Allergy/AdvReac Type Severity Reaction Status Date / Time pollen Allergy Unknown Unknown Uncoded 05/09/24 11:39 Review of Systems Review of Systems: Yes all other systems are reviewed and are negative PMFSH Past Medical History Attestation statement: The following information was validated with the patient. Source: old records reviewed Medical History History of umbilical hernia Surgical History History of excision of mass History of cholecystectomy History of breast augmentation History of bilateral breast reduction surgery History of abdominoplasty Family History Family History Mother Colon cancer Social History Social History Alcohol intake: never Patient Tobacco Use Status: Never used Tobacco Advance Directives: No Advance Directives Information Provided: Yes Do you have a plan to hurt others: No Plan Physical Exam ED Vital Signs: Vital Signs - 24 hr 05/09/24 11:36 05/09/24 15:44 05/09/24 18:27 Temperature 97.2 F 97.8 F 97 F Pulse Rate 70 57 62 Respiratory Rate 20 18 14 Blood Pressure 113/82 138/65 129/76 Pulse Oximetry 97 97 96 Oxygen Delivery Method Room Air Room Air Room Air BMI result Body Mass Index 31.0 Appearance: Alert.?Oriented to person, place and time. No acute distress.?Normal affect. Eyes: Pupils equal, round and reactive to light.? ENT: Pharynx normal.?? Neck: Normal inspection.? Neck supple.?? CVS: Heart sounds normal. Normal heart rate and rhythm.? Pulses normal.?? Respiratory: No respiratory distress.? Lung sounds clear to auscultation bilaterally?? Abdomen: Soft with right upper and lower quadrant and right flank tenderness upon palpation. Negative Agosto sign. No rigidity. No guarding Normoactive bowel sounds. Skin: Skin warm and dry.? Normal skin color.? Extremities: No lower extremity edema.? No calf ttp? Neuro: Moves all extremities spontaneously. Sensation intact bilaterally. CN II-XII intact. No focal neuro deficits. Ambulates with normal steady gait. Course Reevaluation(s) Reevaluation #1: I consulted with General surgery, Dr. Ross. Recommends obtaining repeat LFTs in a couple of hours to determine if there is a trend. If they are continuing to increase, recommends admission for MRCP to evaluate for possible CBD stone. At this time does not feel that there is anything surgical. If LFTs remained stable she may be discharged for outpatient follow-up. At this time patient reports that pain is progressively worsening, requesting additional pain medication, receiving 2nd dose of IV morphine Time: 17:39 Reevaluation #2: LFTs continue to trend upwards, T bili 1.6, AST/ALT 478/189, alk-phos 120. Admitted to medicine service, spoke with hospitalist Dr. Niall Arriaga Time: 20:05 Medications Administered Discontinued Medications Generic Name Dose Route Start Last Admin Trade Name Noé PRN Reason Stop Dose Admin Morphine Sulfate 4 mg 05/09/24 15:28 05/09/24 15:42 Morphine Sulfate 4 Mg/Ml Cartridge IVPUSH 05/09/24 15:29 4 mg ONCE ONE Administration Protocol Morphine Sulfate 4 mg 05/09/24 17:42 05/09/24 17:50 Morphine Sulfate 4 Mg/Ml Cartridge IVPUSH 05/09/24 17:43 4 mg ONCE ONE Administration Protocol Ondansetron HCl 4 mg 05/09/24 15:28 05/09/24 15:42 Ondansetron Hcl 4 Mg/2 Ml Vial IVPUSH 05/09/24 15:29 4 mg ONCE ONE Administration Medical Decision Making Medical Decision Making MDM Narrative: Patient is a 43-year-old female with past medical history of hyperlipidemia, asthma, anxiety, kidney stones, fibromyalgia, sciatica, history of abdominoplasty who presents emergency department for evaluation of persistent right ABD/back pain as per HPI. Overall she appears well, nontoxic, afebrile. She is speaking clear full sentences. No respiratory distress. Abdominal exam notable for tenderness on evaluation but no rigidity or guarding. Normoactive bowel sounds. She was evaluated in the emergency department 05/07/2024 for similar symptoms, had ultrasound of the appendix and CT of the abdomen and pelvis without acute identifiable pathology. She was discharged home with ibuprofen, Zofran, and morphine. Pain has been alleviated with morphine but after 4-6 hours her pain returns. Of note she was also evaluated by General surgery in January of 2024 for chronic abdominal pain radiating into her back after having abdominoplasty, she was advised that pain was due to her prior surgery, no surgical interventions were warranted, recommended Tylenol/ibuprofen as needed for pain. CBC is overall unremarkable when compared to prior labs 2 days ago. On review for chemistries, AST and ALT are 165/93 with T bili 1.1, does not have history of prior. She is status post cholecystectomy, no acute hepatic abnormality seen on recent CT image 2 days ago -> will obtain ultrasound for further evaluation Differential Diagnosis Differential Diagnoses: The differential diagnosis associated with the presentation includes Unlikely acute appendicitis negative CT 2 days ago, no rebound tenderness. Suspect less likely to be bowel obstruction, hydronephrosis, obstructive calculi pyelonephritis, UTI. Discussed additional pathology including muscular pain. Admission/Observation Consideration of admission/observation: Escalation of care including admission/observation considered Consult Healthcare Provider Management of the patient was discussed with: Checking Department Supervisor (See course narrative) Lab Data MDM Lab Attestation statement: I reviewed the patient's lab results. 05/09/24 12:33 05/09/24 12:33 Labs: Lab Results 05/09/24 05/09/24 05/09/24 Range/Units 12:33 12:40 19:25 WBC 6.3 (4.8-10.8) X10*3/uL RBC 4.10 L (4.20-5.50) X10*6/uL Hgb 11.9 L (12.0-16.0) g/dl Hct 37.7 (37.0-47.0) % MCV 92.0 (80.0-98.0) fL MCH 29.0 (27.0-33.0) pg MCHC 31.6 (31.0-35.0) g/dl RDW 13.0 (11.0-16.0) % Plt Count 271 (160-400) X10*3/uL MPV 9.9 (9.4-12.3) fL Immature Gran % (Auto) 0.5 H (0.0-0.4) % Neut % (Auto) 65.9 (45-73) % Lymph % (Auto) 22.0 (20-40) % Ellis % (Auto) 8.9 (2-11) % Eos % (Auto) 2.1 (0-4) % Baso % (Auto) 0.6 (0-2) % Lymph # (Auto) 1.4 (1.2-4.9) X10*3/uL Ellis # (Auto) 0.6 (0.1-1.2) X10*3/uL Eos # (Auto) 0.1 (0.0-0.4) X10*3/uL Baso # (Auto) 0.0 (0.0-0.2) X10*3/uL Abs Immat Gran (auto) 0.03 (0.00-0.03) X10*3/uL Absolute Neuts (auto) 4.1 (2.0-8.3) x10*3/uL Absolute Nucleated RBC 0.000 (0.0-0.012) X10*3/uL Nucleated RBC % (auto) 0.0 (0.0-0.2) /100WBC Sodium 145 (135-145) mmol/L Potassium 4.4 (3.3-5.1) mmol/L Chloride 105 (96-108) mmol/L Carbon Dioxide 30 H (22-29) mmol/L Anion Gap 14 (12-20) BUN 8 L (9-16) mg/dL Creatinine 0.64 (0.5-1.4) mg/dL Estim Creat Clear Calc 110.7 Estimated GFR > 60 Random Glucose 86 (60-115) mg/dL Calcium 9.4 (8.4-10.2) mg/dL Total Bilirubin 1.1 H 1.6 H (0.0-1.0) mg/dL Direct Bilirubin 0.7 H (0.0-0.5) mg/dL AST 165 H 478 H (5-31) U/L ALT 93 H 189 H (0-31) U/L Alkaline Phosphatase 87 120 H (39-117) U/L Total Protein 7.1 6.9 (6.5-8.0) g/dL Albumin 3.9 3.9 (3.5-5.0) g/dL Lipase 121 H 152 H (8-78) U/L Urine Color Yellow Urine Appearance Cloudy Urine pH 7.0 (5.0-9.0) Ur Specific [place] 1.010 (1.005-1.025) Urine Protein Negative (Neg-Trace) mg/dL Urine Glucose (UA) Negative (Negative) mg/dL Urine Ketones Negative (Negative) mg/dL Urine Blood Negative (Negative) Urine Nitrite Negative (Negative) Ur Leukocyte Esterase Negative (Negative) Radiology Impression Discussion of test interpretation with radiology: I have reviewed the radiologist's reading. Radiologist Impression: US/US abdomen limited IMPRESSION: The liver demonstrates very mild increased echogenicity which may represent some degree of hepatic steatosis. The gallbladder is surgically absent. External Record Review External record reviewed: Outpatient record Prescription Management I considered prescription management with: Pain Medication (As previously prescribed 05/07/2024) Discharge Plan Discharge Clinical Impression: Transaminitis, Abdominal pain Patient Disposition: Still a Patient Prescriptions: No Action acetaminophen [Tylenol Extra Strength] 500 mg tablet 1,000 mg PO Q6H PRN (Reason: fever or pain) Qty: 20 0RF ibuprofen 400 mg tablet 400 mg PO TID PRN (Reason: fever or pain) Qty: 30 0RF morphine 15 mg tablet 15 mg PO Q4-6H PRN (Reason: pain) Qty: 10 0RF Rx Instructions: The patient may ask for partial fill; Partial Fill upon patient request. hydroxyzine HCl 10 mg tablet 10 - 20 mg PO Q6H PRN (Reason: anxiety) venlafaxine 150 mg capsule,extended release 24hr 150 mg PO DAILY cholecalciferol (vitamin D3) 25 mcg (1,000 unit) capsule 25 mcg PO DAILY (DME) lancets [FreeStyle Lancets] 28 gauge misc See Rx Instructions topical QAM Qty: 100 Rx Instructions: As directed omeprazole 20 mg capsule,delayed release(DR/EC) 20 mg PO DAILY Print Language: Sami
[2024-05-09 12:38] LABS: MANUAL DIFF FLAG NO
[2024-05-09 12:39] LABS: Basophils Percent Auto 0.6 % (0-2); Eosinophils Absolute Auto 0.1 X10*3/uL (0.0-0.4); Eosinophils Percent Auto 2.1 % (0-4); Hematocrit 37.7 % (37.0-47.0); Hemoglobin 11.9 g/dl (12.0-16.0); Imm Gran Abs Auto 0.03 X10*3/uL (0.00-0.03); Imm Gran Pct Auto 0.5 % (0.0-0.4); Lymphocytes Absolute Auto 1.4 X10*3/uL (1.2-4.9); Mean Corpuscular HGB Conc 31.6 g/dl (31.0-35.0); Mean Platelet Volume 9.9 fL (9.4-12.3); Monocytes Absolute Auto 0.6 X10*3/uL (0.1-1.2); Monocytes Percent Auto 8.9 % (2-11); Neutrophils Absolute Auto 4.1 x10*3/uL (2.0-8.3); Neutrophils Percent Auto 65.9 % (45-73); Platelet Count 271 X10*3/uL (160-400); White Blood Count 6.3 X10*3/uL (4.8-10.8)
[2024-05-09 12:50] LABS: Appearance Urine Cloudy; Color Urine Yellow; Glucose Urine UA Negative (Negative); Leukocyte Esterase Urine Negative (Negative); Nitrite Urine Negative (Negative); Urine Blood Negative (Negative); Urine Ketones Negative (Negative); Urine Protein Negative (Neg-Trace)
[2024-05-09 12:54] LABS: Alanine Aminotransferase 93 U/L (0-31); Albumin Level 3.9 g/dL (3.5-5.0); Alkaline Phosphatase 87 U/L (39-117); Anion Gap 14 (12-20); Aspartate Amino Transferase 165 U/L (5-31); Bilirubin Total 1.1 mg/dL (0.0-1.0); Blood Urea Nitrogen 8 mg/dL (9-16); Calcium 9.4 mg/dL (8.4-10.2); Carbon Dioxide 30 mmol/L (22-29); Chloride 105 mmol/L (96-108); Creatinine Clr Calc Pharmacy 110.7; Estimated Glomerular Filt Rate > 60; Glucose Random 86 mg/dL (60-115); Potassium 4.4 mmol/L (3.3-5.1); Sodium 145 mmol/L (135-145); Total Protein 7.1 g/dL (6.5-8.0)
[2024-05-09 14:21] LABS: Lipase 121 U/L (8-78)
--- NOTE | 2024-05-09 14:38 | PC.NURSE ---
ultrasound being completed at this time.
--- NOTE | 2024-05-09 15:19 | PC.NURSE ---
pt verbalizing increase in pain - requesting medication. provider notified/aware.
[2024-05-09] MEDS: Morphine Sulfate 4 MG/ML CARTRIDGE IVPUSH ×2 (15:42→17:50)
[2024-05-09] MEDS: ondansetron HCL 4 MG/2 ML VIAL IVPUSH (15:42)
[2024-05-09 15:44] VITALS: BP 138/65; PULSE 57; RESP 18; TEMP 36.6; O2SAT 97
--- NOTE | 2024-05-09 15:47 | PC.NURSE ---
vss and up to date. pt medicated per provider order. effectiveness pending.
[2024-05-09 18:27] VITALS: BP 129/76; PULSE 62; RESP 14; TEMP 36.1; O2SAT 96
--- NOTE | 2024-05-09 19:32 | PC.NURSE ---
repeat labs obtained/sent to lab at this time. plan of care ongoing.
[2024-05-09 19:45] LABS: Alanine Aminotransferase 189 U/L (0-31); Albumin Level 3.9 g/dL (3.5-5.0); Alkaline Phosphatase 120 U/L (39-117); Aspartate Amino Transferase 478 U/L (5-31); Bilirubin Direct 0.7 mg/dL (0.0-0.5); Bilirubin Total 1.6 mg/dL (0.0-1.0); Total Protein 6.9 g/dL (6.5-8.0)
[2024-05-09 20:25] LABS: Lipase 152 U/L (8-78)
--- NOTE | 2024-05-09 21:07 | P.HPHOSP_ITS ---
History of Present Illness Date of Service: 05/09/24 Attending physician on admission: Candelario Arriaga Chief Complaint: Abdominal pain Pt is a 43-year-old female with a PMH significant for HLD, fibromyalgia, sciatica, chronic pain syndrome,?abdominoplasty in 2020, cholecystectomy, and anxiety who presents to the ED with?worsening abdominal and lower back pain. Patient has a long history of chronic lower back and abdominal pain that has been ascribed to chronic pain syndrome secondary to her abdominoplasty in 2020. He has had multiple ED and general surgery office visits in the past. Patient presented to the ED yesterday for right-sided abdominal pain that radiated to her back, which is different from her baseline chronic pain. Workup at that time included CT of abdomen and pelvis and labs which were all unremarkable. Pt was discharged home on morphine, ondansetron, and ibuprofen. Patient presents again today with worsening abdominal pain. States has constant sharp and shooting pain in right abdomen that radiates to her back and up to her neck. Reports having ?lung? pain with deep breathing. Denies chest pain/pressure, palpitations. No shortness a breath. Denies fever, chills. States had cholecystectomy more than 5 years ago. In the ED pt's vitals stable and WNL. Labs were significant for new onset transaminitis with bilirubin 1.1, AST 165, ALT 93, and lipase 121. Repeat labs showed marked increase of all these labs: Bilirubin 1.6, AST 478, ALT 189, alk- phos 120, and lipase 152. No leukocytosis. Stable H&H. ?CT of abdomen and pelvis yesterday showed no significant abnormality with the appendix visualized and within normal limits. Abdominal ultrasound today found liver with mild increased echogenicity which may represent some degree of hepatic steatosis. CBD normal in caliber measuring 0.6 cm in diameter. Gallbladder shown to be surgically absent. Pt was treated with morphine and ondansetron. Pt will be admitted to the hospital for treatment and further evaluation of right sided abdominal pain in the setting of transaminitis concerning for choledocholithiasis. Review of Systems 2 Review of Systems: Right-sided abdominal pain radiating to back Nausea, no vomiting Chest pain with deep inspiration Denies fever, chills No chest pressure, or palpitations Denies shortness of breath [facility] Medical History (Updated 05/09/24 @ 22:02 by PETER Chang) Chronic pain syndrome Fibromyalgia Hyperlipidemia Anxiety History of umbilical hernia Family History Mother Colon cancer Surgical History History of excision of mass History of cholecystectomy History of breast augmentation History of bilateral breast reduction surgery History of abdominoplasty Social History Alcohol intake: never Patient Tobacco Use Status: Never used Tobacco Advance Directives: No Advance Directives Information Provided: Yes Do you have a plan to hurt others: No Plan Meds Allergies Allergy/AdvReac Type Severity Reaction Status Date / Time pollen Allergy Unknown Unknown Uncoded 05/09/24 11:39 Home Medications ?Medication ?Instructions ?Recorded ?Confirmed ?Last Taken ?Type lancets 28 gauge (FreeStyle #100 ea 10/06/21 01/12/23 Unknown History Lancets) omeprazole 20 mg capsule,delayed 20 mg PO DAILY@0630 10/06/21 05/09/24 05/08/24 History release albuterol sulfate 90 mcg/actuation 2 puff inhalation Q4H PRN wheezing 05/09/24 05/09/24 Unknown History aerosol inhaler (Ventolin HFA) epinephrine 0.3 mg/0.3 mL 0.3 mg IM DIRECTED PRN Allergic 05/09/24 05/09/24 Unknown History injection, auto-injector Reaction levonorgestrel-ethinyl estradiol 1 tab PO DAILY 05/09/24 05/09/24 05/08/24 History 0.1 mg-20 mcg tablet (Vienva) rosuvastatin 40 mg tablet 40 mg PO BEDTIME 05/09/24 05/09/24 05/08/24 History sertraline 100 mg tablet 100 mg PO DAILY 05/09/24 05/09/24 05/08/24 History sumatriptan succinate 50 mg tablet 50 mg PO DAILY PRN Migraine 05/09/24 05/09/24 Unknown History Headache Physical Exam 2 Vital Signs and Narrative: Vital Signs: Last Vital Signs Temp 97 F 05/09/24 18:27 Pulse 62 05/09/24 18:27 Resp 14 05/09/24 18:27 BP 129/76 05/09/24 18:27 Pulse Ox 96 05/09/24 18:27 O2 Del Method Room Air 05/09/24 18:27 BMI result Body Mass Index 31.0 General: AOx3, no acute distress Resp: CTA bilaterally CVS: S1, S2, RRR GI: +BS, no distention. Diffuse abdominal tenderness most significant in RUQ and RLQ. Skin: Warm, dry Neuro: Cranial nerves II-XII grossly intact bilaterally. Motor grossly intact bilaterally Extremities: No edema Psych: Appropriate affect Results Labs 05/09/24 12:33 05/09/24 12:33 Labs: Laboratory Results - last 24 hr 05/09/24 05/09/24 05/09/24 12:33 12:40 19:25 MCV 92.0 MCH 29.0 MCHC 31.6 RDW 13.0 Plt Count 271 MPV 9.9 Immature Gran % (Auto) 0.5 H Neut % (Auto) 65.9 Lymph % (Auto) 22.0 [place] % (Auto) 8.9 Eos % (Auto) 2.1 Baso % (Auto) 0.6 Lymph # (Auto) 1.4 [place] # (Auto) 0.6 Eos # (Auto) 0.1 Baso # (Auto) 0.0 Abs Immat Gran (auto) 0.03 Absolute Neuts (auto) 4.1 Absolute Nucleated RBC 0.000 Nucleated RBC % (auto) 0.0 Anion Gap 14 Estim Creat Clear Calc 110.7 Estimated GFR > 60 Random Glucose 86 Calcium 9.4 Total Bilirubin 1.1 H 1.6 H Direct Bilirubin 0.7 H AST 165 H 478 H ALT 93 H 189 H Alkaline Phosphatase 87 120 H Total Protein 7.1 6.9 Albumin 3.9 3.9 Lipase 121 H 152 H Urine Color Yellow Urine Appearance Cloudy Urine pH 7.0 Ur Specific [place] 1.010 Urine Protein Negative Urine Glucose (UA) Negative Urine Ketones Negative Urine Blood Negative Urine Nitrite Negative Ur Leukocyte Esterase Negative Imaging Radiologist's Impressions: Impressions Abdomen Ultrasound 05/09/24 14:52 IMPRESSION: The liver demonstrates very mild increased echogenicity which may represent some degree of hepatic steatosis. The gallbladder is surgically absent. Assessment and Plan (1) Abdominal pain: Status: Acute (2) Transaminitis: Status: Acute Plan Pt is a 43-year-old female with a PMH significant for HLD, fibromyalgia, asthma, chronic pain syndrome,?abdominoplasty in 2020, cholecystectomy, migraines, and anxiety who presents to the ED with?worsening abdominal and lower back pain. Pt will be admitted to the hospital for treatment and further evaluation of right sided abdominal pain in the setting of transaminitis concerning for choledocholithiasis. Transaminitis Patient with severe, constant, sharp and stabbing right-sided abdominal pain radiating to back Worsening transaminitis and elevated lipase CT of abd/pelvis yesterday and US of RUQ today negative Concerning for choledocholithiasis Will get MRCP Clear liquid diet for now, NPO after midnight GI consult Analgesics for pain management Asthma Not in acute exacerbation Continue home inhaler HLD Continue statin GERD PPI Migraines Continue sumatriptan Mood disorder Continue sertraline Full Code Attending:?Dr. Tierney DVT Prophylaxis: Pneumatic compression due to possible surgical procedure Pt will require a hospitalization of at least two nights for treatment of?intractable abdominal pain in the setting of worsening transaminitis concerning for choledocholithiasis. Patient will require pain management, additional imaging, and specialist consultation with Gastroenterology for possible surgical procedure. Quality Stroke Does the patient have a stroke diagnosis?: No VTE Prior VTE?: No VTE Risk Level:: Medical - moderate - high VTE Device Contraindication: N/A - Device Ordered VTE Drug Contraindication: Treatment Not Indicated
--- NOTE | 2024-05-09 21:48 | PHA.MEDREC ---
Pharmacy Consult ? Medication Reconciliation Pharmacy has completed the medication reconciliation. Spoke to patient though Instrumentation Manager services ([employer]) to confirm med list. Patient states she is no longer taking Cetirizine 10 mg daily, Vitamin D3 25 mcg daily, Duloxetine 30 mg daily, Hydroxyzine HCl 10 -20 mg Q6H, and Venlafaxine 150 mg daily. Patient says she finished Morphine 15 mg every 4-6 hours that was prescribed to her on 05-08-24 visit, for a 2 day supply. Patient also states she is taking Vienva daily , however there is no claim for this medication.
[2024-05-09] MEDS: HYDROmorphone HCl 1 MG/ML SYRINGE 0.5 MG IVPUSH (22:30)
--- NOTE | 2024-05-09 22:30 | PC.NURSE ---
pt verbalizing 10/10 pain - requesting medication. PRN medication utilized. effectiveness pending.
[2024-05-09 22:57] VITALS: BP 129/70; PULSE 58; RESP 16; TEMP 36.6; O2SAT 94
[2024-05-10] MEDS: HYDROmorphone HCl 1 MG/ML SYRINGE 0.5 MG IVPUSH ×5 (02:44→20:15)
[2024-05-10] MEDS: 0.9 % Sodium Chloride Flush 3 ML SYRINGE IVFLUSH (02:48)
[2024-05-10 02:55] VITALS: BP 118/69; PULSE 57; RESP 16; TEMP 37; O2SAT 98
--- NOTE | 2024-05-10 03:43 | PC.NURSE ---
PT A&Ox3, requested Dilaudid for abdominal pain, 0.5 mg Dilaudid administered @ 2:44am with +effect per patient. Pt is now resting comfortably, will continue monitoring.
[2024-05-10] MEDS: ondansetron HCL 4 MG/2 ML VIAL IVPUSH ×2 (05:41→18:19)
[2024-05-10 06:27] VITALS: BP 104/65; PULSE 64; RESP 16; TEMP 37.1; O2SAT 96
[2024-05-10 07:28] LABS: Alanine Aminotransferase 176 U/L (0-31); Albumin Level 3.8 g/dL (3.5-5.0); Alkaline Phosphatase 117 U/L (39-117); Anion Gap 12 (12-20); Aspartate Amino Transferase 269 U/L (5-31); Bilirubin Total 1.3 mg/dL (0.0-1.0); Blood Urea Nitrogen 8 mg/dL (9-16); Calcium 9.2 mg/dL (8.4-10.2); Carbon Dioxide 29 mmol/L (22-29); Chloride 104 mmol/L (96-108); Creatinine Clr Calc Pharmacy 104.2; Estimated Glomerular Filt Rate > 60; Glucose Random 94 mg/dL (60-115); Lipase 42 U/L (8-78); Potassium 3.9 mmol/L (3.3-5.1); Sodium 141 mmol/L (135-145); Total Protein 6.5 g/dL (6.5-8.0)
--- NOTE | 2024-05-10 10:53 | PC.NURSE ---
took over pt are at 915 am, pt currently a&ox3, ambulating with steady gait- pt requesting to take a shower- will get a setup for pt, dr. dennis at bedside to speak with pt about mrcp, pt requesting ativan for procedure- spoke with dr. chisholm who ordered ivp ativan to be given prior to pt going to mri. pt filled out mri form and it was sent via tiger to mri text as she was still at home and will be coming in to do the mri. pt currently denying the need for pain medication. family at bedside, call warren within reach, will continue to monitor
--- NOTE | 2024-05-10 11:19 | HO.PM.IMPN ---
Subjective Subjective Date of Service: 05/10/24 Interval History: seen and examined bedside awaiting MRCP Physical Exam Vital Signs: Vital Signs: Last Vital Signs Temp 98.7 F 05/10/24 06:27 Pulse 64 05/10/24 06:27 Resp 16 05/10/24 06:27 BP 104/65 05/10/24 06:27 Pulse Ox 96 05/10/24 06:27 O2 Del Method Room Air 05/10/24 06:27 BMI result Body Mass Index 31.0 Const: Other: General - no acute distress, appears comfortable Cardiovascular - regular rate and rhythm, S1-S2 Lungs - normal respiratory effort, clear to auscultation bilaterally, no wheezing Abdomen - soft, nontender, no rebound or guarding Extremities - no edema bilaterally Neuro - awake and alert, no focal deficits Objective Data Active Medications Acetaminophen (Acetaminophen 325 Mg Tablet) 650 mg PO Q6H PRN PRN Reason: Pain, Mild (Pain Scale 1-3), fever or headache Benzonatate (Benzonatate 100 Mg Capsule) 100 mg PO TID PRN PRN Reason: Cough Calcium Carbonate (Calcium Carbonate 750 Mg Tab.Chew) 750 mg PO Q4H PRN PRN Reason: Heartburn Hydromorphone HCl (Hydromorphone Hcl 1 Mg/Ml Syringe) 0.5 mg IVPUSH Q4H PRN; Protocol PRN Reason: Pain, Severe (Pain Scale 7-10) Last Admin: 05/10/24 11:18 Dose: 0.5 mg Documented By: ZAINA Lorazepam (Lorazepam 2 Mg/Ml Vial) 0.5 mg IVPUSH ONCE PRN PRN Reason: prior to MRI Magnesium Hydroxide (Milk Of Magnesia 30 Ml Oral.Susp) 30 ml PO DAILY PRN PRN Reason: Constipation Melatonin (Melatonin 3 Mg Tablet) 6 mg PO BEDTIME PRN PRN Reason: Insomnia Ondansetron HCl (Ondansetron Hcl 4 Mg/2 Ml Vial) 4 mg IVPUSH Q8H PRN PRN Reason: Nausea and Vomiting Last Admin: 05/10/24 05:41 Dose: 4 mg Documented By: MILDRED Sodium Chloride (0.9 % Sodium Chloride Flush 3 Ml Syringe) 3 ml IVFLUSH [facility] Last Admin: 05/10/24 07:32 Dose: Not Given Documented By: HO.TORREDE Non-Admin Reason: Previously Administered Labs 05/09/24 12:33 05/10/24 Unknown Labs: Laboratory Results - last 24 hr 05/09/24 05/09/24 05/09/24 12:33 12:40 19:25 MCV 92.0 MCH 29.0 MCHC 31.6 RDW 13.0 Plt Count 271 MPV 9.9 Immature Gran % (Auto) 0.5 H Neut % (Auto) 65.9 Lymph % (Auto) 22.0 [place] % (Auto) 8.9 Eos % (Auto) 2.1 Baso % (Auto) 0.6 Lymph # (Auto) 1.4 Rogers # (Auto) 0.6 Eos # (Auto) 0.1 Baso # (Auto) 0.0 Abs Immat Gran (auto) 0.03 Absolute Neuts (auto) 4.1 Absolute Nucleated RBC 0.000 Nucleated RBC % (auto) 0.0 Hold Purple Top Anion Gap 14 Estim Creat Clear Calc 110.7 Estimated GFR > 60 Random Glucose 86 Calcium 9.4 Total Bilirubin 1.1 H 1.6 H Direct Bilirubin 0.7 H AST 165 H 478 H ALT 93 H 189 H Alkaline Phosphatase 87 120 H Total Protein 7.1 6.9 Albumin 3.9 3.9 Lipase 121 H 152 H Urine Color Yellow Urine Appearance Cloudy Urine pH 7.0 Ur Specific [place] 1.010 Urine Protein Negative Urine Glucose (UA) Negative Urine Ketones Negative Urine Blood Negative Urine Nitrite Negative Ur Leukocyte Esterase Negative 05/10/24 05/10/24 06:26 Unknown MCV MCH MCHC RDW Plt Count MPV Immature Gran % (Auto) Neut % (Auto) Lymph % (Auto) Rogers % (Auto) Eos % (Auto) Baso % (Auto) Lymph # (Auto) Rogers # (Auto) Eos # (Auto) Baso # (Auto) Abs Immat Gran (auto) Absolute Neuts (auto) Absolute Nucleated RBC Nucleated RBC % (auto) Hold Purple Top SEE NOTE Anion Gap 12 Estim Creat Clear Calc 104.2 Estimated GFR > 60 Random Glucose 94 Calcium 9.2 Total Bilirubin 1.3 H Direct Bilirubin AST 269 H ALT 176 H Alkaline Phosphatase 117 Total Protein 6.5 Albumin 3.8 Lipase 42 Urine Color Urine Appearance Urine pH Ur Specific [place] Urine Protein Urine Glucose (UA) Urine Ketones Urine Blood Urine Nitrite Ur Leukocyte Esterase Assessment and Plan (1) Abdominal pain: Status: Acute Plan Pt is a 43-year-old female with a PMH significant for HLD, fibromyalgia, asthma, chronic pain syndrome,?abdominoplasty in 2020, cholecystectomy, migraines, and anxiety who presents to the ED with?worsening abdominal and lower back pain. Pt will be admitted to the hospital for treatment and further evaluation of right sided abdominal pain in the setting of transaminitis concerning for choledocholithiasis. Transaminitis Patient with severe, constant, sharp and stabbing right-sided abdominal pain radiating to back Worsening transaminitis and elevated lipase CT of abd/pelvis yesterday and US of RUQ today negative Concerning for choledocholithiasis MRCP pending GI consult appreciated - will follow recs Asthma Not in acute exacerbation Continue home inhaler HLD Continue statin GERD PPI Migraines Continue sumatriptan Mood disorder Continue sertraline Full Code DVT Prophylaxis: mechanical for now Quality Stroke Does the patient have a stroke diagnosis?: No VTE Prior VTE?: No VTE Risk Level:: Medical - moderate - high VTE Device Contraindication: N/A - Device Ordered VTE Drug Contraindication: Treatment Not Indicated
--- NOTE | 2024-05-10 11:21 | PC.NURSE ---
pt medicated for 10/10 pain.
[2024-05-10] MEDS: LORazepam 2 MG/ML VIAL 0.5 MG IVPUSH (11:31)
--- NOTE | 2024-05-10 11:36 | PC.NURSE ---
house transport came to unit to bring pt to mri, this nurse medicated pt with ativan per order, ct technician on floor with telehealth nurse going over things, pt to go in wheelchair to mri.
--- NOTE | 2024-05-10 11:53 | PC.NURSE ---
pt to MRI
--- NOTE | 2024-05-10 13:19 | CONS_ITS ---
DATE OF SERVICE: 05/10/2024 REFERRING PHYSICIAN: Dr. Calderón REASON FOR CONSULTATION: Elevated liver function tests. HISTORY OF PRESENT ILLNESS: The patient is a pleasant 43-year-old woman, who was admitted to the hospital after presenting to the emergency room yesterday with complaints of right-sided abdominal and lower quadrant pain with radiation to the back. Symptoms began several days prior to admission. There was no associated fevers or chills. She did have some nausea, but no vomiting. She denies any recent ill contacts, travel or suspect food ingestions. She was evaluated in the emergency department and had laboratory studies obtained showing elevation of her liver function tests with transaminases in the high 90s to mid 100s. These subsequently worsened into the 2 to 400 range with elevation of her bilirubin and mild alkaline phosphatase elevation. This morning, they were improved. Imaging studies were obtained, which showed a normal liver on ultrasound and a normal common bile duct. There was thought to be some hepatic steatosis. CT was normal. She is status post colonoscopy many years ago. PAST MEDICAL HISTORY: 1. Hyperlipidemia. 2. Fibromyalgia. 3. Sciatica. 4. Chronic pain syndrome. 5. Abdominoplasty. 6. Cholecystectomy. 7. Anxiety. 8. Umbilical hernia. CURRENT MEDICATIONS: Her current medication list is reviewed in the chart. ALLERGIES: POLLEN. FAMILY HISTORY: This is reviewed with the patient and is noncontributory. SOCIAL HISTORY: There is no current tobacco, alcohol, or substance abuse. REVIEW OF SYSTEMS: SKIN: No pruritus. HEENT: Negative. CARDIOPULMONARY: She denies shortness of breath or chest pain. GASTROINTESTINAL: As above. GENITOURINARY: Negative. NEUROPSYCHIATRIC: Negative. PHYSICAL EXAMINATION: GENERAL: Shows a pleasant female, lying comfortably in bed, in no distress. SKIN: Anicteric. HEENT: Shows no scleral icterus. NECK: Without lymphadenopathy or thyromegaly. LUNGS: Clear. HEART: Shows a regular rate and rhythm. S1, S2. No murmur. ABDOMEN: Soft without focal masses or tenderness. Bowel sounds are present. There is some mild tenderness to palpation in both lower quadrants, but no guarding or rebound. EXTREMITIES: Without edema. LABORATORY STUDIES AND IMAGING STUDIES: Reviewed. IMPRESSION: Abdominal pain with elevated liver function tests. The etiology for her elevated liver function tests is not clear. Possible causes include common bile duct stones and MRI has been ordered. Other laboratory studies in the past show no evidence of hepatitis C. Other possible causes for her elevated liver function tests include drugs, which seem less unlikely as she denies using drugs and has no medications that should cause an acute hepatitis. Atypical viral infections can cause this as well. We discussed this today. I would recommend monitoring her hematocrit and her liver function tests and we will await the results of her MRI. I did discuss ERCP with her including risks and benefits if necessary. She understands these. Thanks for asking me to see her. I will follow her in the hospital with you. MD LEFTY Mukherjee/IGOR / [phone]
--- NOTE | 2024-05-10 14:15 | PC.NURSE ---
awaiting interpreter deaf to tell patient we are starting ivf and when she can have her pain meds again as she has asked if she was due but not understanding.
[2024-05-10 14:23] VITALS: BP 101/63; PULSE 57; RESP 14; O2SAT 96
[2024-05-10] MEDS: Dextrose 5 % and Lactated Ring 1,000 ML 80 ML IVCONT (15:38)
--- NOTE | 2024-05-10 15:42 | PC.NURSE ---
pt complaining of 10/10 rt abd pain, pt medicated for pain and IVF started per order as certified court interpreter came to explain to pt why she was getting the IVF
[2024-05-10 16:38] VITALS: BP 146/84; PULSE 62; RESP 18; TEMP 36.1; O2SAT 95
[2024-05-10 16:58] VITALS: BMI 30.8
[2024-05-10] MEDS: Acetaminophen 325 MG TABLET 650 MG PO (18:24)
[2024-05-10] MEDS: Calcium Carbonate 750 MG TAB.CHEW PO (18:25)
[2024-05-10] MEDS: Milk of Magnesia 30 ML ORAL.SUSP PO (18:25)
[2024-05-10 20:00] VITALS: BP 126/79; PULSE 57; RESP 18; TEMP 36.4; O2SAT 93
[2024-05-10 20:15] VITALS: RESP 18
[2024-05-11 00:15] VITALS: RESP 16
[2024-05-11] MEDS: HYDROmorphone HCl 1 MG/ML SYRINGE 0.5 MG IVPUSH (00:15)
[2024-05-11 03:34] VITALS: BP 124/72; PULSE 58; RESP 16; TEMP 36.1; O2SAT 97
[2024-05-11] MEDS: Dextrose 5 % and Lactated Ring 1,000 ML 80 ML IVCONT (03:59)
[2024-05-11 04:14] VITALS: RESP 18
[2024-05-11] MEDS: HYDROmorphone HCl 1 MG/ML SYRINGE IVPUSH ×2 (04:14→09:20)
[2024-05-11] MEDS: ondansetron HCL 4 MG/2 ML VIAL IVPUSH (04:21)
[2024-05-11 06:55] LABS: Alanine Aminotransferase 126 U/L (0-31); Albumin Level 3.6 g/dL (3.5-5.0); Alkaline Phosphatase 108 U/L (39-117); Anion Gap 12 (12-20); Aspartate Amino Transferase 132 U/L (5-31); Bilirubin Total 1.1 mg/dL (0.0-1.0); Blood Urea Nitrogen 7 mg/dL (9-16); Calcium 9.1 mg/dL (8.4-10.2); Carbon Dioxide 28 mmol/L (22-29); Chloride 105 mmol/L (96-108); Creatinine Clr Calc Pharmacy 105.5; Estimated Glomerular Filt Rate > 60; Glucose Random 89 mg/dL (60-115); Potassium 3.9 mmol/L (3.3-5.1); Sodium 141 mmol/L (135-145); Total Protein 6.4 g/dL (6.5-8.0)
[2024-05-11 07:30] VITALS: BP 116/57; PULSE 58; RESP 16; TEMP 36.5; O2SAT 94
[2024-05-11] MEDS: Milk of Magnesia 30 ML ORAL.SUSP PO (09:19)
--- NOTE | 2024-05-11 10:02 | HO.PM.IMPN ---
Subjective Subjective Date of Service: 05/11/24 Interval History: seen and examined this AM with hourly sign language interpreter services reporting on going abd pain, b/l upper denies nausea/vomiting/diarrhea would like to eat something Physical Exam Vital Signs: Vital Signs: Last Vital Signs Temp 97.7 F 05/11/24 07:30 Pulse 58 05/11/24 07:30 Resp 16 05/11/24 07:30 BP 116/57 L 05/11/24 07:30 Pulse Ox 94 05/11/24 07:30 O2 Del Method Room Air 05/11/24 07:30 BMI result Body Mass Index 30.8 Const: Other: General - no acute distress, appears comfortable Cardiovascular - regular rate and rhythm, S1-S2 Lungs - normal respiratory effort, clear to auscultation bilaterally, no wheezing Abdomen - soft with RUQ/LUQ TTP without rebound or guarding Extremities - no edema bilaterally Neuro - awake and alert, no focal deficits Objective Data Active Medications Acetaminophen (Acetaminophen 325 Mg Tablet) 650 mg PO Q6H PRN PRN Reason: Pain, Mild (Pain Scale 1-3), fever or headache Last Admin: 05/10/24 18:24 Dose: 650 mg Documented By: STEPHANIE Benzonatate (Benzonatate 100 Mg Capsule) 100 mg PO TID PRN PRN Reason: Cough Calcium Carbonate (Calcium Carbonate 750 Mg Tab.Chew) 750 mg PO Q4H PRN PRN Reason: Heartburn Last Admin: 05/10/24 18:25 Dose: 750 mg Documented By: STEPHANIE Hydromorphone HCl (Hydromorphone Hcl 1 Mg/Ml Syringe) 1 mg IVPUSH Q4H PRN; Protocol PRN Reason: Pain, Severe (Pain Scale 7-10) Last Admin: 05/11/24 09:20 Dose: 1 mg Documented By: STEPHANIE Dextrose/Lactated Ringer's (D5lr) 1,000 mls @ 80 mls/hr IVCONT .[id number] BALDEV Last Admin: 05/11/24 03:59 Dose: 80 mls/hr Documented By: JOSSELIN Lorazepam (Lorazepam 2 Mg/Ml Vial) 0.5 mg IVPUSH ONCE PRN PRN Reason: prior to MRI Last Admin: 05/10/24 11:31 Dose: 0.5 mg Documented By: ZIANA Magnesium Hydroxide (Milk Of Magnesia 30 Ml Oral.Susp) 30 ml PO DAILY PRN PRN Reason: Constipation Last Admin: 05/11/24 09:19 Dose: 30 ml Documented By: STEPHANIE Melatonin (Melatonin 3 Mg Tablet) 6 mg PO BEDTIME PRN PRN Reason: Insomnia Ondansetron HCl (Ondansetron Hcl 4 Mg/2 Ml Vial) 4 mg IVPUSH Q8H PRN PRN Reason: Nausea and Vomiting Last Admin: 05/11/24 04:21 Dose: 4 mg Documented By: JOSSELIN Sodium Chloride (0.9 % Sodium Chloride Flush 3 Ml Syringe) 3 ml IVFLUSH QSHIFT [facility] Last Admin: 05/11/24 07:12 Dose: Not Given Documented By: STEPHANIE Non-Admin Reason: IV Running Labs 05/09/24 12:33 05/11/24 06:04 Labs: Laboratory Results - last 24 hr 05/11/24 06:04 Hold Purple Top SEE NOTE Anion Gap 12 Estim Creat Clear Calc 105.5 Estimated GFR > 60 Random Glucose 89 Calcium 9.1 Total Bilirubin 1.1 H AST 132 H ALT 126 H Alkaline Phosphatase 108 Total Protein 6.4 L Albumin 3.6 Assessment and Plan (1) Abdominal pain: Status: Acute Plan Pt is a 43-year-old female with a PMH significant for HLD, fibromyalgia, asthma, chronic pain syndrome,?abdominoplasty in 2020, cholecystectomy, migraines, and anxiety who presents to the ED with?worsening abdominal and lower back pain. Pt will be admitted to the hospital for treatment and further evaluation of right sided abdominal pain in the setting of transaminitis concerning for choledocholithiasis. Transaminitis Patient with severe, constant, sharp and stabbing right-sided abdominal pain radiating to back Worsening transaminitis and elevated lipase - question related to passed stone Imaging negative for stones or other causes to explain her symptoms GI consult appreciated will advance to clear liquids and work on pain control Asthma Not in acute exacerbation Continue home inhaler HLD Continue statin GERD PPI Migraines Continue sumatriptan Mood disorder Continue sertraline Full Code DVT Prophylaxis - will add lovenox pt with continued abdominal pain requiring IV analgesics 4-6 times per day, still has not tolerated diet sufficient to consider transition to oral meds, therefore, requires continued hospitalization Quality Stroke Does the patient have a stroke diagnosis?: No VTE Prior VTE?: No VTE Risk Level:: Medical - moderate - high VTE Device Contraindication: N/A - Device Ordered VTE Drug Contraindication: Treatment Not Indicated
--- NOTE | 2024-05-11 12:28 | P.PNGI_ITS ---
Subjective Subjective Date of Service: 05/11/24 Interval History: feels hungry Critical Care Time (minutes): 0 Physical Exam 2 Vital Signs: Vital Signs: Last Vital Signs Temp 97.7 F 05/11/24 07:30 Pulse 58 05/11/24 07:30 Resp 16 05/11/24 07:30 BP 116/57 L 05/11/24 07:30 Pulse Ox 94 05/11/24 07:30 O2 Del Method Room Air 05/11/24 07:30 BMI result Body Mass Index 30.8 GI: Other: abdomen is soft and nontender Objective Data Labs 05/09/24 12:33 05/11/24 06:04 Labs: Laboratory Results - last 24 hr 05/11/24 06:04 Hold Purple Top SEE NOTE Sodium 141 Potassium 3.9 Chloride 105 Carbon Dioxide 28 Anion Gap 12 BUN 7 L Creatinine 0.67 Estim Creat Clear Calc 105.5 Estimated GFR > 60 Random Glucose 89 Calcium 9.1 Total Bilirubin 1.1 H AST 132 H ALT 126 H Alkaline Phosphatase 108 Total Protein 6.4 L Albumin 3.6 Procedures Date of Service Date of Service: 05/11/24 Progress Note: A&P Assessment and plan (1) Transaminitis: Status: Acute Plan lfts are better She may have had a passed cbd stone agree with advancing diet d/c when stable Time Spent With Patient Time: Total time managing care of this patient today ____ minutes. Quality Stroke Does the patient have a stroke diagnosis?: No VTE Prior VTE?: No VTE Risk Level:: Medical - moderate - high VTE Device Contraindication: N/A - Device Ordered VTE Drug Contraindication: Treatment Not Indicated
--- NOTE | 2024-05-11 13:20 | P.DS_ITS ---
DS: Providers Provider Date of Service: 05/11/24 Date of admission: 05/09/24 21:46 Primary care physician: Evy Christopher NP Consults: 05/09/24 22:12 Consult to Gastroenterology Routine Consulting Provider: Giovany Garrison Reason for consultation: Transaminitis, ?Choledocholithiasis DS: Diagnosis Discharge Diagnosis (1) Transaminitis: Status: Acute DS: Summary Hospital Course Hospital Course: HPI From the admission H&P: Pt is a 43-year-old female with a PMH significant for HLD, fibromyalgia, sciatica, chronic pain syndrome,?abdominoplasty in 2020, cholecystectomy, and anxiety who presents to the ED with?worsening abdominal and lower back pain. Patient has a long history of chronic lower back and abdominal pain that has been ascribed to chronic pain syndrome secondary to her abdominoplasty in 2020. He has had multiple ED and general surgery office visits in the past. Patient presented to the ED yesterday for right-sided abdominal pain that radiated to her back, which is different from her baseline chronic pain. Workup at that time included CT of abdomen and pelvis and labs which were all unremarkable. Pt was discharged home on morphine, ondansetron, and ibuprofen. Patient presents again today with worsening abdominal pain. States has constant sharp and shooting pain in right abdomen that radiates to her back and up to her neck. Reports having ?lung? pain with deep breathing. Denies chest pain/pressure, palpitations. No shortness a breath. Denies fever, chills. States had cholecystectomy more than 5 years ago. In the ED pt's vitals stable and WNL. Labs were significant for new onset transaminitis with bilirubin 1.1, AST 165, ALT 93, and lipase 121. Repeat labs showed marked increase of all these labs: Bilirubin 1.6, AST 478, ALT 189, alk- phos 120, and lipase 152. No leukocytosis. Stable H&H. ?CT of abdomen and pelvis yesterday showed no significant abnormality with the appendix visualized and within normal limits. Abdominal ultrasound today found liver with mild increased echogenicity which may represent some degree of hepatic steatosis. CBD normal in caliber measuring 0.6 cm in diameter. Gallbladder shown to be surgically absent. Pt was treated with morphine and ondansetron. Pt will be admitted to the hospital for treatment and further evaluation of right sided abdominal pain in the setting of transaminitis concerning for choled ocholithiasis. Hospital Course: Patient was admitted for abdominal pain and abnormal LFTs. Imaging studies at the time of admission including abdominal ultrasound and CT scan of the abdomen and pelvis did not show a definitive cause for her pain and elevated enzymes. She was evaluated by Gastroenterology and underwent an MRCP which did not show any choledocholithiasis. She was given supportive care with intravenous fluids and IV analgesics. Her LFTs are downtrending and her abdominal pain has improved significantly. He has tolerated solids and is requesting discharge, hence will be sent home with outpatient follow-up. No definitive cause was found, however suspected possible passed gallstone resulting in pain and elevated LFTs. Time Attestation Discharge Coordination Time (in mins): 35 Quality: Safe Use of Opioids Does Pt have an Active Cancer Diagnosis on the Problem List?: No Quality: Stroke Does the patient have a stroke diagnosis?: No Physical Exam Vital Signs: Vital Signs: Last Vital Signs Temp 97.7 F 05/11/24 07:30 Pulse 58 05/11/24 07:30 Resp 16 05/11/24 07:30 BP 116/57 L 05/11/24 07:30 Pulse Ox 94 05/11/24 07:30 O2 Del Method Room Air 05/11/24 07:30 BMI result Body Mass Index 30.8 Const: Other: Awake and alert Denies abdominal pain Belly soft and nontender DS: Data Data Completed and Pending Labs on day of discharge: Laboratory Results - last 24 hr 05/11/24 06:04 Hold Purple Top SEE NOTE Sodium 141 Potassium 3.9 Chloride 105 Carbon Dioxide 28 Anion Gap 12 BUN 7 L Creatinine 0.67 Estim Creat Clear Calc 105.5 Estimated GFR > 60 Random Glucose 89 Calcium 9.1 Total Bilirubin 1.1 H AST 132 H ALT 126 H Alkaline Phosphatase 108 Total Protein 6.4 L Albumin 3.6 Discharge Plan Discharge Anticipated Discharge Date/Time: 05/11/24 13:18 Patient Disposition: Home, Self-Care Discharge Diagnosis: Abnormal LFTs Referrals: Evy Christopher, [employer] [Primary Care Provider] - 1 Week Discharge Medications: Continued acetaminophen [Tylenol Extra Strength] 500 mg tablet 1,000 mg PO Q6H PRN (Reason: fever or pain) Qty: 20 0RF ibuprofen 400 mg tablet 400 mg PO TID PRN (Reason: fever or pain) Qty: 30 0RF sertraline 100 mg tablet 100 mg PO DAILY sumatriptan succinate 50 mg tablet 50 mg PO DAILY PRN (Reason: Migraine Headache) epinephrine 0.3 mg/0.3 mL auto-injector 0.3 mg IM DIRECTED PRN (Reason: Allergic Reaction) rosuvastatin 40 mg tablet 40 mg PO BEDTIME albuterol sulfate [Ventolin HFA] 90 mcg/actuation HFA aerosol inhaler 2 puff INHALATION Q4H PRN (Reason: wheezing) levonorgestrel-ethinyl estrad [Vienva] 0.1-20 mg-mcg Tablet 1 tab PO DAILY (DME) lancets [FreeStyle Lancets] 28 gauge misc See Rx Instructions topical QAM Qty: 100 Rx Instructions: As directed omeprazole 20 mg capsule,delayed release(DR/EC) 20 mg PO DAILY@0630 Discharge Orders: Discharge Order (Routine); Ordered 05/11/24 Ordered By: Henri Calderón Diet: Advance to usual diet Activity on Discharge: As tolerated Stand Alone Forms: Patient Portal Discharge page Print Language: [place] Care Plan Goals: Drink plenty of fluids Follow-up with your primary doctors Follow-up with the pain clinic Health Concerns: Elevated LFTs Plan of Treatment: See above Assessment: See discharge summary
--- NOTE | 2024-05-11 13:45 | MHC.CM.PN ---
CM assessment completed w/ message broker developer assistance. Patient lives at home w/ spouse. Functionally independent. Has a walker in the home, but does not use. PCP Evy Christopher TITLE CHECKER No HCP. CM provided education and offered assistance. Patient declined. DP: Medically cleared for dc home self care. to transport. RN aware.
== END 2024-05-11 14:05 | disposition home or self-care (01) | DRG 251 ==
LOC: HO.ED 20:22 → HO.EDOVER 21:55 → HO.S3 05-10 15:38
PROVIDERS: Nurse Practitioner Family; Admitting Provider Student in an Organized Health Care Education/Training Program; Emergency Provider Emergency Medicine; PCP Nurse Practitioner Primary Care; Visit Provider Family Medicine
DX: R10.9 Unspecified abdominal pain (principal); E78.5 Hyperlipidemia, unspecified; R74.01 Elevation of levels of liver transaminase levels; G89.4 Chronic pain syndrome; J45.909 Unspecified asthma, uncomplicated; F39 Unspecified mood [affective] disorder; K21.9 Gastro-esophageal reflux disease without esophagitis; G43.909 Migraine, unspecified, not intractable, without status migrainosus; Z79.899 Other long term (current) drug therapy
CPT/HCPCS: 36415; 74181; 76705; 80053; 80076; 81003; 83690; 85025; 96361; 96374; 96375; 96376; 99221; 99285; J1170; J2060; J2270; J2405

== ENCOUNTER → 2024-05-09 21:46 | Outpatient (BNV) | payer MEDICAID, SELFPAY | PROVIDERS: Admitting Provider Student in an Organized Health Care Education/Training Program; Emergency Provider Emergency Medicine; PCP Nurse Practitioner Primary Care; Visit Provider Student in an Organized Health Care Education/Training Program | DX: R74.01 Elevation of levels of liver transaminase levels (principal); R10.9 Unspecified abdominal pain | CPT/HCPCS: 99223; 99232; 99239 ==

== ENCOUNTER 2024-05-23 10:39 | Outpatient (REF) | payer MEDICAID, SELFPAY ==
[2024-05-23 12:18] LABS: Alanine Aminotransferase 28 U/L (0-31); Albumin Level 3.9 g/dL (3.5-5.0); Alkaline Phosphatase 78 U/L (39-117); Aspartate Amino Transferase 29 U/L (5-31); Bilirubin Direct 0.2 mg/dL (0.0-0.5); Bilirubin Total 0.8 mg/dL (0.0-1.0); Total Protein 7.3 g/dL (6.5-8.0)
== END 2024-05-23 10:40 | disposition home or self-care (01) ==
LOC: HO.HHCL 10:39
PROVIDERS: Visit Provider Nurse Practitioner
DX: R79.89 Other specified abnormal findings of blood chemistry (principal)
CPT/HCPCS: 36415; 80076

== ENCOUNTER 2024-06-23 11:24 | Outpatient (REF) | payer MEDICAID, SELFPAY ==
[2024-06-23 13:08] LABS: MANUAL DIFF FLAG NO
[2024-06-23 13:24] LABS: Basophils Absolute Auto 0.1 X10*3/uL (0.0-0.2); Basophils Percent Auto 0.8 % (0-2); Eosinophils Absolute Auto 0.3 X10*3/uL (0.0-0.4); Eosinophils Percent Auto 3.7 % (0-4); Hematocrit 37.8 % (37.0-47.0); Imm Gran Abs Auto 0.06 X10*3/uL (0.00-0.03); Imm Gran Pct Auto 0.7 % (0.0-0.4); Lymphocytes Absolute Auto 2.3 X10*3/uL (1.2-4.9); Lymphocytes Percent Auto 27.4 % (20-40); Mean Corpuscular HGB Conc 31.7 g/dl (31.0-35.0); Mean Corpuscular Hemoglobin 29.3 pg (27.0-33.0); Mean Corpuscular Volume 92.4 fL (80.0-98.0); Mean Platelet Volume 11.4 fL (9.4-12.3); Monocytes Absolute Auto 0.8 X10*3/uL (0.1-1.2); Monocytes Percent Auto 9.5 % (2-11); Neutrophils Absolute Auto 4.9 x10*3/uL (2.0-8.3); Neutrophils Percent Auto 57.9 % (45-73); Platelet Count 225 X10*3/uL (160-400); Red Blood Count 4.09 X10*6/uL (4.20-5.50); White Blood Count 8.4 X10*3/uL (4.8-10.8)
[2024-06-23 13:29] LABS: Alanine Aminotransferase 13 U/L (0-31); Albumin Level 3.9 g/dL (3.5-5.0); Alkaline Phosphatase 61 U/L (39-117); Anion Gap 13 (12-20); Aspartate Amino Transferase 23 U/L (5-31); Bilirubin Total 0.7 mg/dL (0.0-1.0); Blood Urea Nitrogen 10 mg/dL (9-16); Calcium 9.6 mg/dL (8.4-10.2); Carbon Dioxide 24 mmol/L (22-29); Chloride 107 mmol/L (96-108); Estimated Glomerular Filt Rate > 60; Glucose Random 96 mg/dL (60-115); Potassium 4.1 mmol/L (3.3-5.1); Sodium 140 mmol/L (135-145); Total Protein 7.4 g/dL (6.5-8.0)
== END 2024-06-23 11:25 | disposition home or self-care (01) ==
LOC: HO.HHCL 11:24
PROVIDERS: Visit Provider General Practice
DX: R74.01 Elevation of levels of liver transaminase levels (principal)
CPT/HCPCS: 36415; 80053; 85025

== ENCOUNTER 2024-06-23 16:10 | Emergency (ER) | payer MEDICAID, SELFPAY ==
--- NOTE | ~2024-06-23 | XR_ITS ---
EXAMINATION: XR CHEST CLINICAL INFORMATION: Chest pain COMPARISON: X-ray 07/03/2023 TECHNIQUE: 4 views of the chest were obtained. Fluoroscopy was utilized. FINDINGS: The cardiomediastinal silhouette is within normal limits. The lungs are well expanded. There is no focal consolidation, edema, or effusion. No pneumothorax. No acute osseous abnormality. XR/XR chest 2V IMPRESSION: No evidence of acute pulmonary process. Electronically signed by: Paulie Shaikh MD 06/23/2024 05:58 PM EDT
[2024-06-23 16:31] VITALS: BP 145/98; PULSE 85; RESP 18; TEMP 37; O2SAT 98; BMI 31.9
--- NOTE | 2024-06-23 16:32 | ECG_ITS ---
Test Reason : abd pain Blood Pressure : / mmHG Vent. Rate : 072 BPM Atrial Rate : 072 BPM P-R Int : 118 ms QRS Dur : 082 ms QT Int : 410 ms P-R-T Axes : 061 -20 -22 degrees QTc Int : 448 ms Normal sinus rhythm Possible Left atrial enlargement Nonspecific T wave abnormality Abnormal ECG When compared with ECG of 21-JUL-2022 15:29, Nonspecific T wave abnormality, worse in Lateral leads Referred By: Mendy Booth Electronically Signed By:MATTHEW AREVALO
--- NOTE | 2024-06-23 16:32 | ED.GENADULT ---
HPI - General Adult General Chief complaint: General Medical Stated complaint: asthma,abd pain,vomiting Time Seen by Provider: 06/23/24 23:12 Source: patient Mode of arrival: ambulatory Limitations: language barrier History of Present Illness ED Provider: Dr. Donovan HPI narrative: patient states that she has been coughing and wheezing for 3 days. She has twice had coughing fits that caused her to vomit. Patient states that she initially had right sided chest pain with coughing but now has bilateral chest pain with coughing Onset (ago): day(s) Severity: mild Related Data Home Medications ?Medication ?Instructions ?Recorded ?Confirmed lancets 28 gauge (FreeStyle #100 ea 10/06/21 01/12/23 Lancets) omeprazole 20 mg capsule,delayed 20 mg PO DAILY@0630 10/06/21 05/09/24 release albuterol sulfate 90 mcg/actuation 2 puff inhalation Q4H PRN wheezing 05/09/24 05/09/24 aerosol inhaler (Ventolin HFA) epinephrine 0.3 mg/0.3 mL 0.3 mg IM DIRECTED PRN Allergic 05/09/24 05/09/24 injection, auto-injector Reaction levonorgestrel-ethinyl estradiol 1 tab PO DAILY 05/09/24 05/09/24 0.1 mg-20 mcg tablet (Vienva) rosuvastatin 40 mg tablet 40 mg PO BEDTIME 05/09/24 05/09/24 sertraline 100 mg tablet 100 mg PO DAILY 05/09/24 05/09/24 sumatriptan succinate 50 mg tablet 50 mg PO DAILY PRN Migraine 05/09/24 05/09/24 Headache Previous Rx's ?Medication ?Instructions ?Recorded acetaminophen 500 mg tablet 1,000 mg (2 x 500 mg) PO Q6H PRN 05/08/24 (Tylenol Extra Strength) fever or pain #20 tabs ibuprofen 400 mg tablet 400 mg PO TID PRN fever or pain 05/08/24 #30 tabs prednisone 20 mg tablet 60 mg (3 x 20 mg) PO DAILY #12 tabs 06/24/24 Allergies Allergy/AdvReac Type Severity Reaction Status Date / Time pollen Allergy Unknown Unknown Uncoded 06/23/24 16:34 Review of Systems Review of Systems: Yes all other systems are reviewed and are negative Neurologic: Denies Sensory deficit (Neuro) PMFSH Past Medical History Medical History Abdominal pain Transaminitis Chronic pain syndrome Fibromyalgia Hyperlipidemia Anxiety History of umbilical hernia Surgical History History of excision of mass History of cholecystectomy History of breast augmentation History of bilateral breast reduction surgery History of abdominoplasty Family History Family History Mother Colon cancer Social History Social History Household Members: Family Housing: House Do you presently have visiting nurse or other home services: No Alcohol intake: never Patient Tobacco Use Status: Never used Tobacco Advance Directives: No Advance Directives Information Provided: No Do you have a plan to hurt others: No Plan service: No Physical Exam ED Vital Signs: Vital Signs - 24 hr 06/23/24 16:31 Temperature 98.6 F Pulse Rate 85 Respiratory Rate 18 Blood Pressure 145/98 H Pulse Oximetry 98 Oxygen Delivery Method Room Air BMI result Body Mass Index 31.9 Const General: healthy appearing Nutritional Appearance: average body habitus Orientation/consciousness: oriented to person and patient oriented x3 Limitations: no limitations HENMT Head: Yes normal to inspection Ears: external ears normal General nose exam: Normal external nose present Mouth: Normal oral and palatal mucosa present and oropharynx normal Throat: Yes posterior oropharynx normal Eyes General: appearance normal, both eyes and all related structures Neck Neck: Yes normal visual inspection Chest Chest palpation & inspection: normal inspection of the chest Resp Other: slight wheeze bilaterally Cardio Jugular venous distension: no JVD Rate: regular rate Rhythm: regular rhythm Heart sounds: S1 normal heart sound present and S2 normal heart sound present GI Inspection: Yes normal to inspection Palpation (GI): Soft to palpation, nontender and No hepatosplenomegaly present Auscultation: normal bowel sounds General: Yes no CVA tenderness Back/Spine/Pelvis Back: no CVA tenderness Skin General skin exam: no rashes or lesions noted Neuro General: oriented to person and patient oriented x3 Cranial nerves: Yes CN's II-XII intact bilaterally Motor exam (neuro): 5/5 motor strength present throughout Sensory Exam: No Sensory deficit (Neuro) Extrem General: Yes normal to inspection Psych Appearance: grossly normal Course Course Course Narrative: RME performed by Mendy Booth PA-C. Patient is a 44 year old assigned female at presenting to the emergency department with lung pain. Patient states over the last 3 days she has had lung pain, nausea, and vomiting. Detailed physical exam and review of systems are deferred to the electrical assembly technician. EKG, labs, imaging, and swabs ordered. Patient placed back in the waiting room pending room availability and results. Reevaluation(s) Reevaluation #1: patient with normal blood work, normal ekg, normal cxr. Slight wheeze, will start prednisone and have the patient use her albuterol as needed Time: 00:05 Medical Decision Making Differential Diagnosis Differential Diagnoses: The differential diagnosis associated with the presentation includes (pneumonia, cardiac ischemia, rsv, flu, covid, asthma) Admission/Observation Consideration of admission/observation: Escalation of care including admission/observation considered (upon arrival patient was considered for admission) Lab Data 06/23/24 17:06 06/23/24 17:06 Labs: Lab Results 06/23/24 Range/Units 17:06 WBC 9.3 (4.8-10.8) X10*3/uL RBC 3.73 L (4.20-5.50) X10*6/uL Hgb 11.1 L (12.0-16.0) g/dl Hct 34.0 L (37.0-47.0) % MCV 91.2 (80.0-98.0) fL MCH 29.8 (27.0-33.0) pg MCHC 32.6 (31.0-35.0) g/dl RDW 12.9 (11.0-16.0) % Plt Count 294 D (160-400) X10*3/uL MPV 10.2 (9.4-12.3) fL Immature Gran % (Auto) 0.8 H (0.0-0.4) % Neut % (Auto) 64.0 (45-73) % Lymph % (Auto) 21.1 (20-40) % Brooke % (Auto) 10.1 (2-11) % Eos % (Auto) 3.2 (0-4) % Baso % (Auto) 0.8 (0-2) % Lymph # (Auto) 2.0 (1.2-4.9) X10*3/uL Brooke # (Auto) 0.9 (0.1-1.2) X10*3/uL Eos # (Auto) 0.3 (0.0-0.4) X10*3/uL Baso # (Auto) 0.1 (0.0-0.2) X10*3/uL Abs Immat Gran (auto) 0.07 H (0.00-0.03) X10*3/uL Absolute Neuts (auto) 5.9 (2.0-8.3) x10*3/uL Absolute Nucleated RBC 0.000 (0.0-0.012) X10*3/uL Nucleated RBC % (auto) 0.0 (0.0-0.2) /100WBC Sodium 141 (135-145) mmol/L Potassium 3.8 (3.3-5.1) mmol/L Chloride 107 (96-108) mmol/L Carbon Dioxide 24 (22-29) mmol/L Anion Gap 14 (12-20) BUN 11 (9-16) mg/dL Creatinine 0.64 (0.5-1.4) mg/dL Estim Creat Clear Calc 111.2 Estimated GFR > 60 Random Glucose 108 (60-115) mg/dL Calcium 9.4 (8.4-10.2) mg/dL Magnesium 1.9 (1.6-2.6) mg/dL Total Bilirubin 0.5 (0.0-1.0) mg/dL AST 20 (5-31) U/L ALT 11 (0-31) U/L Alkaline Phosphatase 61 (39-117) U/L Troponin I High Sens < 2.7 (<3.5-17.0) ng/L Total Protein 7.2 (6.5-8.0) g/dL Albumin 3.9 (3.5-5.0) g/dL Beta HCG, Quant < 2 mIU/mL Urine Color Yellow Urine Appearance Clear Urine pH 6.0 (5.0-9.0) Ur Specific [place] 1.025 (1.005-1.025) Urine Protein Negative (Neg-Trace) mg/dL Urine Glucose (UA) Negative (Negative) mg/dL Urine Ketones Trace (Negative) mg/dL Urine Blood Negative (Negative) Urine Nitrite Negative (Negative) Ur Leukocyte Esterase Negative (Negative) Influenza Type A (PCR) NEGATIVE (Negative) Influenza Type B (PCR) NEGATIVE (Negative) RSV RNA Qual (PCR) NEGATIVE (Negative) SARS-CoV-2 RNA (RT-PCR) NEGATIVE (Negative) S. pyogenes GrpA JANE Negative (Negative) Independent Interpretation I performed an independent interpretation of an: EKG (sinus 80, no st or twave changes) and Plain X-Ray (CXR: no infiltrate) Prescription Management I considered prescription management with: Antibiotic (No evidence of pneumonia or UTI will not start on abx) Chronic Conditions Patient?s care impacted by: Other (asthma) Social Determinants Patient?s care significantly limited by Social Determinants of Health including: Low income Discharge Plan Discharge Clinical Impression: Asthma Patient Disposition: Home, Self-Care Instructions: Asthma (ED) Prescriptions: New prednisone 20 mg tablet 60 mg PO DAILY Qty: 12 0RF No Action acetaminophen [Tylenol Extra Strength] 500 mg tablet 1,000 mg PO Q6H PRN (Reason: fever or pain) Qty: 20 0RF ibuprofen 400 mg tablet 400 mg PO TID PRN (Reason: fever or pain) Qty: 30 0RF sertraline 100 mg tablet 100 mg PO DAILY sumatriptan succinate 50 mg tablet 50 mg PO DAILY PRN (Reason: Migraine Headache) epinephrine 0.3 mg/0.3 mL auto-injector 0.3 mg IM DIRECTED PRN (Reason: Allergic Reaction) rosuvastatin 40 mg tablet 40 mg PO BEDTIME albuterol sulfate [Ventolin HFA] 90 mcg/actuation HFA aerosol inhaler 2 puff INHALATION Q4H PRN (Reason: wheezing) levonorgestrel-ethinyl estrad [Vienva] 0.1-20 mg-mcg Tablet 1 tab PO DAILY (DME) lancets [FreeStyle Lancets] 28 gauge misc See Rx Instructions topical QAM Qty: 100 Rx Instructions: As directed omeprazole 20 mg capsule,delayed release(DR/EC) 20 mg PO DAILY@0630 Referrals: Evy Christopher, PHOTOGRAPHY AND PRINTS CURATOR [Primary Care Provider] - 3 days Print Language: Latvian
[2024-06-23 17:15] LABS: MANUAL DIFF FLAG NO
[2024-06-23 17:23] LABS: Appearance Urine Clear; Basophils Absolute Auto 0.1 X10*3/uL (0.0-0.2); Basophils Percent Auto 0.8 % (0-2); Color Urine Yellow; Eosinophils Absolute Auto 0.3 X10*3/uL (0.0-0.4); Eosinophils Percent Auto 3.2 % (0-4); Glucose Urine UA Negative (Negative); Hemoglobin 11.1 g/dl (12.0-16.0); Imm Gran Abs Auto 0.07 X10*3/uL (0.00-0.03); Imm Gran Pct Auto 0.8 % (0.0-0.4); Leukocyte Esterase Urine Negative (Negative); Lymphocytes Percent Auto 21.1 % (20-40); Mean Corpuscular HGB Conc 32.6 g/dl (31.0-35.0); Mean Corpuscular Hemoglobin 29.8 pg (27.0-33.0); Mean Corpuscular Volume 91.2 fL (80.0-98.0); Mean Platelet Volume 10.2 fL (9.4-12.3); Monocytes Absolute Auto 0.9 X10*3/uL (0.1-1.2); Monocytes Percent Auto 10.1 % (2-11); Neutrophils Absolute Auto 5.9 x10*3/uL (2.0-8.3); Nitrite Urine Negative (Negative); Platelet Count 294 X10*3/uL (160-400); Red Blood Count 3.73 X10*6/uL (4.20-5.50); Red Cell Distribution Width 12.9 % (11.0-16.0); Specific Gravity - Urine 1.025 (1.005-1.025); Urine Blood Negative (Negative); Urine Ketones Trace mg/dL (Negative); Urine Protein Negative (Neg-Trace); White Blood Count 9.3 X10*3/uL (4.8-10.8)
[2024-06-23 17:25] LABS: IDNOW Serial# 58CA691E; Strep A Nucleic Acid Negative (Negative)
[2024-06-23 17:37] LABS: Alanine Aminotransferase 11 U/L (0-31); Albumin Level 3.9 g/dL (3.5-5.0); Alkaline Phosphatase 61 U/L (39-117); Anion Gap 14 (12-20); Aspartate Amino Transferase 20 U/L (5-31); Bilirubin Total 0.5 mg/dL (0.0-1.0); Blood Urea Nitrogen 11 mg/dL (9-16); Calcium 9.4 mg/dL (8.4-10.2); Carbon Dioxide 24 mmol/L (22-29); Chloride 107 mmol/L (96-108); Creatinine Clr Calc Pharmacy 111.2; Estimated Glomerular Filt Rate > 60; Glucose Random 108 mg/dL (60-115); Magnesium 1.9 mg/dL (1.6-2.6); Potassium 3.8 mmol/L (3.3-5.1); Sodium 141 mmol/L (135-145); Total Protein 7.2 g/dL (6.5-8.0)
[2024-06-23 17:42] LABS: Troponin-I High Sensitivity < 2.7 ng/L (<3.5-17.0)
[2024-06-23 17:43] LABS: HCG Quantitative < 2 mIU/mL
[2024-06-23 17:52] LABS: Influenza A PCR NEGATIVE (Negative); Influenza B PCR NEGATIVE (Negative); Resp Syncy Virus RNA Qual PCR NEGATIVE (Negative); SARS COV2 PCR INHOUSE NEGATIVE (Negative)
--- NOTE | 2024-06-23 23:57 | PC.NURSE ---
pt from home a&ox4, respirations even and unlabored. pt reporting onset of shortness of breath and nausea and vomiting for one day. 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 pt denies chest pain and diarrhea. pt reports using inhaler at home without relief. 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
[2024-06-24] MEDS: predniSONE 20 MG TABLET 60 MG PO (00:21)
[2024-06-24 00:28] VITALS: BP 132/86; PULSE 60; RESP 18; TEMP 36.4; O2SAT 97
[2024-06-24 00:32] VITALS: BP 132/86; PULSE 60; RESP 18; TEMP 36.4; O2SAT 97
== END 2024-06-24 00:33 | disposition home or self-care (01) ==
PROVIDERS: Physician Assistant Medical; Emergency Provider Emergency Medicine; PCP Nurse Practitioner Primary Care
DX: J45.909 Unspecified asthma, uncomplicated (principal); R94.31 Abnormal electrocardiogram [ECG] [EKG]; R10.9 Unspecified abdominal pain; R11.10 Vomiting, unspecified; R05.9 Cough, unspecified; Z03.818 Encounter for observation for suspected exposure to other biological agents ruled out; Z79.899 Other long term (current) drug therapy
CPT/HCPCS: 0241U; 71046; 80053; 81003; 83735; 84484; 84702; 85025; 87651; 93005; 99283; 99284

== ENCOUNTER → 2024-07-24 08:06 | Outpatient (BNVA) | payer MEDICAID, SELFPAY | PROVIDERS: PCP Nurse Practitioner Primary Care; Visit Provider Student in an Organized Health Care Education/Training Program | DX: M79.7 Fibromyalgia (principal) | CPT/HCPCS: 99202 ==

== ENCOUNTER → 2024-07-24 08:06 | Outpatient (AMB) | payer MEDICAID, SELFPAY ==
--- NOTE | 2024-07-24 08:28 | MHC.OFFVIS ---
Vital Signs 07/24/24 08:37 Height 5 ft 3 in Weight 179 lb 7.3 oz BMI 31.8 BP 122/72 Blood Pressure Location Rt brachial Position Sitting Respiration 18 Pulse 73 Pulse Source Pulse Oximeter Pulse Oximetry (%) 97 Oxygen Delivery Method Room Air Intake Visit Reasons: Polyarthralgia Intake Note: Patient presents for Polyarthragia. I feel intense pain from the hips down. Having trouble getting out of bed, walking and getting dress for already six months or more. Taking tylenol for pain but it only work short term. Garbage Truck Dispatcher Required: Yes Garbage Truck Dispatcher Language: Marketing Professional Services: Garbage Truck Dispatcher Present Garbage Truck Dispatcher Name: Alyssa# [id number] Information Interpreted: non-clinical & clinical Allergies No Known Allergies Allergy (Verified 07/24/24 08:35) Medication List - Last Reconciled 07/24/24 by Swapnil Macias MD acetaminophen (Tylenol Extra Strength) 1,000 mg (2 x 500 mg) PO Q6H PRN albuterol sulfate 90 mcg/actuation (Ventolin HFA) 2 puffs inhalation Q4H PRN ibuprofen 400 mg PO TID PRN omeprazole 20 mg PO DAILY@0630 rosuvastatin 40 mg PO BEDTIME sertraline 100 mg PO DAILY sumatriptan succinate 50 mg PO DAILY PRN HPI Comments Details: This is a 44-year-old female who presents for evaluation of diffuse pain. She states that she has pain in her lower back, her hips, down her thighs. 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 She states that she had will injections in her back and they did not help much. She was diagnosed with obstructive sleep apnea and was prescribed a CPAP but she has not been able to get the machine. COUNTS INCLUDE 234 BEDS AT THE [facility] Medical History Abdominal pain Transaminitis Chronic pain syndrome Fibromyalgia Hyperlipidemia Anxiety History of umbilical hernia Surgical History History of excision of mass History of cholecystectomy History of breast augmentation History of bilateral breast reduction surgery History of abdominoplasty Family History Mother Colon cancer Social History Household Members: Family Housing: House Do you presently have visiting nurse or other home services: No Alcohol intake: never Patient Tobacco Use Status: Never used Tobacco service: No Review of Systems Const Reports fatigue and Reports weakness Musc Reports back pain, Reports arthralgias, Reports numbness, Reports radiating pain into limb and Reports stiffness Neuro Reports numbness and Reports weakness Endo Reports fatigue Physical Exam Vital Signs: Last Vital Signs Pulse 73 07/24/24 08:37 Resp 18 07/24/24 08:37 BP 122/72 07/24/24 08:37 Pulse Ox 97 07/24/24 08:37 Oxygen Delivery Method Room Air 07/24/24 08:37 BMI result Body Mass Index 31.8 Const General: cooperative, healthy appearing and comfortable Nutritional Appearance: obese Orientation/consciousness: patient oriented x3 Limitations: no limitations HEENT Head: Yes normocephalic and Yes atraumatic Mouth: moist mucous membranes Resp Effort & Inspection: normal respiratory effort and able to speak in complete sentences Auscultation: clear to auscultation bilaterally Cardio Rate: regular rate Rhythm: regular rhythm Skin General skin exam: no rashes or lesions noted Neuro General: patient oriented x3 Extrem Other: No active synovitis Normal nailfold capillaroscopy Normal range of motion of hands, wrists, elbows and shoulders without pain Bilateral upper lumbar paraspinal muscle tenderness Assessment & Plan Assessment & Plan (1) Fibromyalgia, primary: Code(s): M79.7 - Fibromyalgia Category: Medical Plan: This is a 44-year-old female who presents for evaluation of diffuse pain. I do not see any evidence of an autoimmune rheumatic disease. 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 Discussed management of fibromyalgia with patient. Is a noninflammatory, non-autoimmune central afferent processing disorder leading to a diffuse pain syndrome. I suggested that patient try to address her underlying psychiatric issues, anxiety/depression. I suggested evaluation by a therapist and/or a psychiatrist. Patient has been diagnosed with YANI but has not been able to get her CPAP machine. Discussed the association of YANI with fibromyalgia. Try to follow sleep hygiene practices. . Patient would benefit from increased physical activity, either through formal physical therapy or by joining a gym. Advised patient that she should start activity slowly and increase as tolerated. Consider low-impact exercises such as walking, swimming, aqua therapy stretching, yoga. Follow-up with PCP Plan I spent 30 minutes reviewing patient's chart, evaluating patient, counseling patient and documenting in the chart Coding Level of Care Code New Pt Level 3 (56146) Diagnoses Fibromyalgia, primary M79.7
[2024-07-24 08:37] VITALS: BP 122/72; PULSE 73; RESP 18; O2SAT 97; BMI 31.8
== END ==
PROVIDERS: PCP Nurse Practitioner Primary Care; Visit Provider Student in an Organized Health Care Education/Training Program
DX: M79.7 Fibromyalgia (principal)
CPT/HCPCS: 99203

== ENCOUNTER 2024-09-19 09:08 | Outpatient (REF) | payer MEDICAID, SELFPAY ==
[2024-09-19 11:30] LABS: Estimated Average Glucose 117 mg/dL; Hemoglobin A1C 115.3993 umol/L; Hemoglobin A1c % 5.7 % (<6.0); Total Hemoglobin (HGBA1C) 3002.9515 umol/L
[2024-09-19 11:37] LABS: Cholesterol 309 mg/dL (<200); HDL Cholesterol 52 mg/dL (>40); LDL Cholesterol Calculated 217 mg/dL (<100); Triglycerides 204 mg/dL (<150)
== END 2024-09-19 09:09 | disposition home or self-care (01) ==
LOC: HO.HHCL 09:08
PROVIDERS: Visit Provider Nurse Practitioner Primary Care
DX: E78.5 Hyperlipidemia, unspecified (principal)
CPT/HCPCS: 36415; 80061; 83036

== ENCOUNTER 2024-10-27 10:50 | Emergency (ER) | payer MEDICAID, SELFPAY ==
--- NOTE | ~2024-10-27 | CT_ITS ---
EXAMINATION: CT ABDOMEN AND PELVIS WITH CONTRAST CLINICAL INFORMATION: Left flank, lower abdominal pain and increased white count. COMPARISON: None available. TECHNIQUE: Multidetector volumetric images were obtained from the superior aspect of the liver through the pubic symphysis following administration 85 mL of Omnipaque 350 intravenous contrast. Sagittal and coronal reformatted images were obtained on the technologist's workstation. Oral contrast: No This CT examination was performed using dose optimization techniques as appropriate, variously including the following: *Automated exposure control *Adjustment of mA and/or kV according to patient size (this includes techniques or standardized protocols for targeted exams where dose is matched to indication/reason for exam; i.e. extremities or head) *Use of iterative reconstruction technique DLP: 571 mGy-cm FINDINGS: LUNG BASES: There is bibasilar atelectasis or scarring. The heart size is normal. There is a small hiatal hernia. LIVER, GALLBLADDER, AND BILIARY TREE: The liver is normal in size, shape, and attenuation. No focal hepatic lesion or biliary ductal dilatation is present. The gallbladder is surgically absent. PANCREAS: Unremarkable. SPLEEN: Unremarkable. ADRENAL GLANDS: Unremarkable. KIDNEYS AND URETERS: The kidneys are normal in size, shape, and attenuation. There is a 1 mm radiopaque calculi nonobstructive mid pole right kidney on coronal image 57/6, unchanged to previous study. No additional radiopaque calculi seen. BLADDER: Unremarkable. GASTROINTESTINAL TRACT: There is moderate scattered stool and gas seen in colon without distention. The small bowel loops are normal caliber. Appendix is not visualized. There is no inflammatory process seen in the abdomen no free air or free fluid seen. ABDOMINAL WALL: There are postsurgical changes along the umbilicus. No hernia seen in the abdominal wall.. LYMPH NODES: Normal. VASCULAR: Unremarkable. PELVIC VISCERA: There is a 2.6 cm right ovarian simple cyst. The uterus is not visualized likely surgically removed. No abnormal size pelvic or inguinal lymph nodes seen. OSSEOUS STRUCTURES: Unremarkable. CT/CT abdomen pelvis w IV con IMPRESSION: Moderate constipation. No obstruction seen. Midline umbilical postsurgical changes likely from hysterectomy. Right ovarian 2.6 cm simple cyst. Punctate midpole right radiopaque renal calculi, stable. No caliectasis or hydronephrosis. Fleischner guidelines were followed. Electronically signed by: Jayant Hickman MD 10/27/2024 04:56 PM EST RP
--- OUTSIDE RECORDS SUMMARY | 2024-10-27 10:53 | XMS_ITS ---
Author Organization [facility] Address [address] [place] [phone] Care Team Providers Care Replanting Machine Crewman Name Role Phone TREVOR MEDINA N.P. Primary Care Provider Jada Garrison Jr, Giovany Unavailable REASON FOR VISIT Patient presents today for ABD PAIN Encounters Encounter Location Date Provider Diagnosis [facility] [address] [facility] [address] [place] [phone] 08/25/2024 Giovany Garrison Jr PLAN OF TREATMENT No Information
--- OUTSIDE RECORDS SUMMARY | 2024-10-27 10:53 | XMS_ITS | Patient Health Record ---
Author Organization [facility] Address [address] [place] [address] Care Team Providers Care Shellac Polisher Name Role Phone TREVOR MEDINA N.P. Primary Care Provider Unavailhugh e Giovany Garrison Jr Unavailable REASON FOR REFERRAL Referring Provider First Name TREVOR Referring Provider Last Name ADAM Lawler Referred Organization [facility] Referred Provider Giovany Garrison Jr Referred Address [address] [facility] [address],[place], [place],[address], Referred Provider Specialty Gastroentero logy General Notes Phyllis Zhao 024 03:55:36 PM EDT > requested a [facility] referral [facility] for visit with Dr. Garrison on [phone] dx abd pain Referral Priority Routine SOCIAL HISTORY Sex Assigned At : Social History Observation Description Sex Assigned At Unknown Encounters Encounter Location Date Provider Diagnosis [facility] [address] [place] [phone] 08/25/2024 Giovany Garrison Jr [facility] [address] [place] [address] 08/25/2024 Giovany Garrison Jr PLAN OF TREATMENT No Information Insurance Providers Payer Name Payer Address Payer Phone Subscriber Number Group Number Insured Name Patient Relationship to Insured Coverage Start Date Coverage End Date [facility] [address] [place] [phone] [id number] JOSEPH COLIN Self - patient is the insured
--- OUTSIDE RECORDS SUMMARY | 2024-10-27 10:53 | XMS_ITS ---
Author Organization [facility] Address [address] [place] [phone] Care Team Providers Care Propeller Inspector Name Role Phone TREVOR MEDINA N.P. Primary Care Provider Jada Garrison Jr, Giovany Unavailable REASON FOR VISIT New pt no show Encounters Encounter Location Date Provider Diagnosis [facility] [address] [place] [phone] 08/25/2024 Giovany Garrison Jr PLAN OF TREATMENT No Information
--- OUTSIDE RECORDS SUMMARY | 2024-10-27 10:53 | XMS_ITS | Continuity of Care Document ---
Author Organization [facility] Address [address] [place] [address]- Care Team Providers Care Ring Packer Name Role Phone Ashwin HUTSON, Evy Perez Primary Care Physician [phone] [id number]28/24 - 09/27/24 [facility] [address] [place] [address]- Encounter Type: Triage Allergies, Adverse Reactions, Alerts No Known Allergies Immunizations Given and Recorded Vaccine Date Status Refusal Reason SARS-CoV-2 mRNA ([id number]) vax 11/27/21 Recorded SARS-CoV-2 (COVID-19) mRNA BNT-162b2 vac 03/23/21 Recorded SARS-CoV-2 (COVID-19) mRNA BNT-162b2 vac 03/02/21 Recorded influenza virus vaccine, inactivated 1 09/29/10 [facility] 1Admin Note: per pt Medications esomeprazole 40 mg oral enteric coated capsule 1 capsule, By Mouth, 2 times a day, # 90 capsule, 0 Refills, Maintenance, 09/05/24 11:50:00 AM EST, [facility] #[id number], 160, cm, 09/01/24 9:42:00 EST, Height, 81.9, kg, 06/04/24 14:06:00 EDT,Dry Weight Start Date: 09/05/24 Status: Ordered Quantity: 90.0 Unit: capsule Repeat number: 1 hydrOXYzine hydrochloride 10 mg oral tablet 1 tablet = 10 mg, By Mouth, 4 times a day, PRN for anxiety, # 80 tablet, 0 Refills, Maintenance, 09/29/21 11:35:00 AM EST, Tablet, Partial fill upon patient request if the prescription is for a schedule II opioid drug. Start Date: 09/29/21 Status: Ordered Quantity: 80.0 Unit: tablet Repeat number: 1 Lidoderm 5% film 1 patch, Topically, Daily, remove patches after 12 hours, # 10 patch, 0 Refills, Maintenance, 02/26/24 1:51:00 PM EDT, [facility] #[id number], Partial fill upon patient request if the prescription is for a schedule II opioid drug., 1 patch Topically Daily,Instr:remove patches after 12 hours, 160, cm, 02/26/24 7:26:00 EDT, Height, 79.6, kg, 02/26/24 7:26:00 EDT, Dry Weight Start Date: 02/26/24 Status: Ordered Quantity: 10.0 Unit: patch Repeat number: 1 naproxen 500 mg oral tablet 1 tablet = 500 mg, By Mouth, PRN, # 180 tablet, 0 Refills, Maintenance, 02/02/23 8:52:00 AM EDT, Tablet, Partial fill upon patient request if the prescription is for a schedule II opioid drug. Start Date: 02/02/23 Status: Ordered Quantity: 180.0 Unit: tablet Repeat number: 1 ondansetron 4 mg oral tablet 1 tablet = 4 mg, By Mouth, Every 8 hours, # 40 tablet, 1 Refills, Maintenance, 07/14/24 3:00:00 PM EDT, Tablet, [facility] #[id number], Partial fill upon patient request if the prescription is for a schedule II opioid drug., 157, cm, 07/14/24 14:14:00 EDT, Height, 81.9, kg, 06/04/24 14:06:00 EDT, Dry Weight Start Date: 07/14/24 Status: Ordered Quantity: 40.0 Unit: tablet Repeat number: 2 rosuvastatin 40 mg oral tablet TAKE 1 TABLET BY MOUTH EVERY DAY AT BEDTIME Start Date: 06/14/23 Status: Ordered Repeat number: 1 sertraline 100 mg oral tablet 1 tablet = 100 mg, By Mouth, Daily, # 30 tablet, 0 Refills, Maintenance, 01/04/24 3:45:00 PM EST, Tablet, Partial fill upon patient request if the prescription is for a schedule II opioid drug. Start Date: 01/04/24 Status: Ordered Quantity: 30.0 Unit: tablet Repeat number: 1 SUMAtriptan 50 mg oral tablet 1 tablet = 50 mg, By Mouth, Once, PRN for migraine headache, # 9 tablet, 0 Refills, Maintenance, 01/04/24 3:45:00 PM EST, Tablet, Partial fill upon patient request if the prescription is for a scheduleII opioid drug. Start Date: 01/04/24 Status: Ordered Quantity: 9.0 Unit: tablet Repeat number: 1 Ventolin HFA 108 mcg/inh inhalation aerosol with adapter INHALE 2 PUFFS BY MOUTH EVERY 4 HOURS NEEDED FOR WHEEZING Start Date: 06/14/23 Status: Ordered Repeat number: 1 Vienva By Mouth, Daily, 0 Refills, Maintenance, 02/02/23 8:52:00 AM EDT, Partial fill upon patient request if the prescription is for a schedule II opioid drug. Start Date: 02/02/23 Status: Ordered Repeat number: 1 Vienva 100 mcg-20 mcg oral tablet 1 tablet, By Mouth, Daily, 0 Refills, Maintenance, 06/19/23 11:26:00 AM EDT, Partial fill upon patient request if the prescription is for a schedule II opioid drug. 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 Confirmed Active Straining with stools Confirmed Active Epigastric pain Confirmed Active Epigastric pain Confirmed Active Encounter for diagnostic colonoscopy due to change in bowel habits Confirmed Active Encounter for diagnostic colonoscopy due to change in bowel habits Confirmed Active Gastritis Confirmed Active Acid reflux Confirmed Active Lower abdominal pain Confirmed Active Mastodynia Confirmed 09/07/10 Active Nausea Confirmed Active Obese class I Confirmed Active Ovarian ligament fibroid Confirmed Active Polyp of gallbladder Confirmed Active Abdominal pain, right lower quadrant Confirmed Active Pain in right thigh Confirmed Active Social History Social History Type Response Smoking Status Never smoker; Tobacc o user in household: Yes entered on: 02/20/14 Sex Sex Representation Female (finding) Patient Care team information Care Team Personnel Name: Liliam Downing RN Position: [facility] AMB Nurse Member Role: Primary Care Nurse Name: Bakari Kruse MA Position: [facility] Outreach Member Role: Lifetime Consulting Physician Name: Patricia Feng RN Position: [facility] Onco RN Member Role: Primary Care Nurse Name: Shelly Anton RN Position: [facility] RN Member Role: Primary Care Nurse Name: Fabiana Matta LPN Position: [facility] RN Member Role: Primary Care Nurse Name: Evy Christopher NP Position: [facility] Outreach Member Role: PCP Address: [address] [place] [address] Telecom: Name: Albertina Luna RN Position: [facility] RN Member Role: Primary Care Nurse Care Team Related Persons Name: SMOOTH QUIROZ Insurance Providers Guarantor name: [facility] Plan Information #: 1 Payer: [email or web address] Member Number: AMANDA Policy Number: NA Group Number: NA
--- OUTSIDE RECORDS SUMMARY | 2024-10-27 10:53 | XMS_ITS | Continuity of Care Document ---
Author Organization [facility] Address [address] [place] [address]- Care Team Providers Care Process Supervisor Name Role Phone Ashwin HUTSON, Evy Perez Primary Care Physician [phone] [id number] 10[facility]19/[facility] [address] [place] [address]- Encounter Type: Triage Allergies, Adverse Reactions, Alerts No Known Allergies Immunizations Given and Recorded Vaccine Date Status Refusal Reason SARS-CoV-2 mRNA ([id number]) vax 11/27/21 Recorded SARS-CoV-2 (COVID-19) mRNA BNT-162b2 vac 03/23/21 Recorded SARS-CoV-2 (COVID-19) mRNA BNT-162b2 vac 03/02/21 Recorded influenza virus vaccine, inactivated 1 09/29/10 [facility] 1Admin Note: per pt Medications esomeprazole 40 mg oral enteric coated capsule 1 capsule, By Mouth, 2 times a day, # 90 capsule, 0 Refills, Maintenance, 09/05/24 11:50:00 AM EST, [email or web address] #[id number], 160, cm, 09/01/24 9:42:00 EST, Height, 81.9, [...] 0 Refills, Maintenance, 02/26/24 1:51:00 PM EDT, [facility][id number], Partial fill upon patient request if the [...] Refills, Maintenance, 07/14/24 3:00:00 PM EDT, Tablet, [facility] #[id number], Partial fill upon patient request if the [...] Team Personnel Name: Liliam Downing RN Position: [facility] AMB Nurse Member Role: Primary Care Nurse Name: Bakari Kruse MA Position: [facility] Outreach Member Role: Lifetime Consulting Physician Name: Patricia Feng RN Position: [facility] Onco RN Member Role: Primary Care Nurse Name: Shelly Anton RN Position: [facility] RN Member Role: Primary Care Nurse Name: Evy Christopher NP Position: [facility] Outreach Member Role: PCP Address: [address] [place] [address] Telecom: Name: Albertina Luna RN Position: [facility] RN Member Role: Primary Care Nurse Care Team Related Persons Name: SMOOTH QUIROZ Insurance Providers Guarantor name: JOSEPH DIXIE [employer] Plan Information #: 1 Payer: [employer] Member Number: NA Policy Number: NA Group Number: NA
--- OUTSIDE RECORDS SUMMARY | 2024-10-27 10:53 | XMS_ITS | Continuity of Care Document ---
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 Name Role Phone Ashwin HUTSON, Evy Perez Primary Care Physician [phone] [id number] Date(s): 10/16/24 - 10/23/[address] [place], [place] [address] Attending Physician: Not on Staff, Attending MD Referring Physician: Evy Christopher NP Encounter Type: Office Visit Allergies, Adverse Reactions, Alerts No Known Allergies Immunizations Given and Recorded Vaccine Date Status Refusal Reason SARS-CoV-2 mRNA ([id number]) vax 11/27/21 Recorded SARS-CoV-2 (COVID-19) mRNA BNT-162b2 vac 03/23/21 Recorded SARS-CoV-2 (COVID-19) mRNA BNT-162b2 vac 03/02/21 Recorded influenza virus vaccine, inactivated 1 09/29/10 [facility] 1Admin Note: per pt Medications esomeprazole 40 mg oral enteric coated capsule 1 capsule, By Mouth, 2 times a day, # 90 capsule, 0 Refills, Maintenance, 09/05/24 11:50:00 AM EST, [facility] #[id number], 160, cm, 09/01/24 9:42:00 EST, Height, 81.9, [...] 0 Refills, Maintenance, 02/26/24 1:51:00 PM EDT, [facility] #[id number], Partial fill upon patient request if the [...] Refills, Maintenance, 07/14/24 3:00:00 PM EDT, Tablet, [facility] #[id number], Partial fill upon patient request if the [...] Active Pain in right thigh Confirmed Active Vital Signs Most recent to oldest [Reference Range]: 1 Height 160 cm (10/16/24 2:36 PM) Weight 80.7 kg (10/16/24 2:36 PM) Pulse Rate [55-90 bpm] 75 bpm (10/16/24 2:36 PM) Body Mass Index [18.5-24.99 kg/m2] 31.52 kg/m2 *>HHI* (10/16/24 2:36 PM) Blood Pressure [90-138/55-84 mm Hg] 124/ 86mm Hg (10/16/24 2:36 PM) Temperature [96.8-100.4 DegF] 95.8 DegF *L* (10/16/24 2:36 PM) Blood pressure sites Arm, right (10/16/24 2:36 PM) Temperature Route Temporal (10/16/24 2:36 PM) Dry Weight 80.7 kg (10/16/24 2:36 PM) Weight Obtained Via Standing scale (10/16/24 2:36 PM) Dry Weight Obtained Via Standing scale (10/16/24 2:36 PM) Social History Social History Type Response Smoking Status Never smoker; Tobacc o user in household: Yes entered on: 02/20/14 Sex Sex Representation Female (finding) Patient Care team information Care Team Personnel Name: Liliam Downing RN Position: [facility] AMB Nurse Member Role: Primary Care Nurse Name: Bakari Kruse MA Position: [facility] Outreach Member Role: Lifetime Consulting Physician Name: Patricia Feng RN Position: [facility] Onco RN Member Role: Primary Care Nurse Name: Shelly Anton RN Position: [facility] RN Member Role: Primary Care Nurse Name: Evy Christopher NP Position: [facility] Outreach Member Role: PCP Address: [address] [place] [address] Telecom: Name: Albertina Luna RN Position: [facility] RN Member Role: Primary Care Nurse Care Team Related Persons Name: SMOOTH QUIROZ Insurance Providers Guarantor name: JOSEPH COLIN Health Plan Information #: 1 Payer: [employer] Member Number: [id number] Policy Number: NA Group Number: NA Health Plan Information #: 2 Payer: [employer] Member Number: [id number] Policy Number: NA Group Number: NA
[2024-10-27 11:39] VITALS: BP 116/76; PULSE 68; RESP 20; TEMP 36.3; O2SAT 96; BMI 31.7
--- NOTE | 2024-10-27 11:41 | ED_ITS ---
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 She describes this as a burning sensation. Pain is now radiating into her bilateral lower abdomen. Pain is worse with movement. Denies any injury/trauma. Endorses associated nausea and vomiting. Her last episode of vomiting was yesterday. She endorses history of renal stones over 7 years ago and can not recall if this pain feels similar. Denies fever, chills, dysuria, hematuria, urinary frequency or hesitancy, vaginal discharge or bleeding, constipation or diarrhea. Last BM this morning and was baseline. Denies hx of IVDU. Denies hx of spinal surgeries. Pertinent surgical history includes cholecystectomy and abdominoplasty. Related Data Home Medications ?Medication ?Instructions ?Recorded ?Confirmed omeprazole 20 mg capsule,delayed 20 mg PO DAILY@0630 10/06/21 05/09/24 release albuterol sulfate 90 mcg/actuation 2 puff inhalation Q4H PRN wheezing 05/09/24 05/09/24 aerosol inhaler (Ventolin HFA) rosuvastatin 40 mg tablet 40 mg PO BEDTIME 05/09/24 05/09/24 sertraline 100 mg tablet 100 mg PO DAILY 05/09/24 05/09/24 sumatriptan succinate 50 mg tablet 50 mg PO DAILY PRN Migraine 05/09/24 05/09/24 Headache Previous Rx's ?Medication ?Instructions ?Recorded acetaminophen 500 mg tablet 1,000 mg (2 x 500 mg) PO Q6H PRN 05/08/24 (Tylenol Extra Strength) fever or pain #20 tabs ibuprofen 400 mg tablet 400 mg PO TID PRN fever or pain 05/08/24 #30 tabs cyclobenzaprine 10 mg tablet 10 mg PO TID PRN muscle spasm #20 10/27/24 tabs Allergies Allergy/AdvReac Type Severity Reaction Status Date / Time No Known Allergies Allergy Verified 10/27/24 11:40 Review of Systems 2 Review of Systems: Constitutional: No fever, chills, fatigue, night sweats, weight changes ENT/Mouth: No ear pain, hearing loss, nasal congestion, sinus pain, rhinorrhea, sore throat Eyes: No eye pain, swelling, redness, vision changes, discharge Cardio: No chest pain, palpitations, [place], orthopnea, peripheral edema Pulm: No SOB, cough, sputum, wheezing, dyspnea, hemoptysis GI: No hematemesis, diarrhea, constipation, hematochezia, melena, +abd pain, +N/V : No irregular bleeding, dysuria, frequency, urgency, hesitancy, hematuria, flank pain, urinary flow changes, urinary incontinence or retention, +left flank pain MSK: No back pain, neck pain, joint pain, myalgias Skin: No lesions, rashes Neuro: No weakness, numbness, paresthesias, LOC, dizziness, headache Psych: No anxiety/panic, depression, SI/HI, AH/VH All other systems reviewed and are negative. [facility] Past Medical History Attestation statement: The following information was validated with the patient. Source: old records reviewed and nursing notes reviewed Medical History Abdominal pain Transaminitis Chronic pain syndrome Fibromyalgia Hyperlipidemia Anxiety History of umbilical hernia Surgical History History of excision of mass History of cholecystectomy History of breast augmentation History of bilateral breast reduction surgery History of abdominoplasty Family History Family History Mother Colon cancer Social History Social History Household Members: Family Housing: House Do you presently have visiting nurse or other home services: No Alcohol intake: never Patient Tobacco Use Status: Never used Tobacco service: No Physical Exam ED Vital Signs: Vital Signs - 24 hr 10/27/24 11:39 10/27/24 16:06 10/27/24 18:11 Temperature 97.4 F 97.1 F Pulse Rate 68 55 61 Respiratory Rate 20 16 16 Blood Pressure 116/76 119/73 126/78 Pulse Oximetry 96 98 96 Oxygen Delivery Method Room Air Room Air Room Air 10/27/24 21:11 10/27/24 21:44 Temperature 97.2 F 97.2 F Pulse Rate 61 61 Respiratory Rate 16 16 Blood Pressure 125/79 125/79 Pulse Oximetry 94 94 Oxygen Delivery Method Room Air Room Air BMI result Body Mass Index 31.7 vital signs stable, afebrile General: Well appearing, in no acute distress. Skin: Warm, dry, intact. No rashes or lesions. Head: Normocephalic, atraumatic. EENT: Hearing is intact b/l. Conjunctiva clear. Sclera is anicteric. PERRLA. EOM intact. Moist mucous membranes.? Neck: Supple without LAD Cardiac: Chest wall symmetric. RRR Lungs: Normal respiratory effort without accessory muscle use. CTA bilaterally Abdomen: soft, ttp along lower abdomen with both light and deep palpation, no palpable masses. voluntary guarding. no rebound tenderness. normoactive bs. left CVAT Back: No midline spinous tenderness or step off. Ext: Upper and lower extremities atraumatic, without tenderness, deformity, swelling or erythema. Full ROM throughout. Neuro: AOx3. Normal speech. Strength 5/5 intact throughout. No saddle anesthesia. Sensation intact to light touch. NV intact distally. Ambulating with steady gait. Psych: Appropriate mood and affect. Responds appropriately to questions. Course Course Course Narrative: RME, this is a rapid medical exam performed by Matty White please refer to primary provider for complete H&P- 44-year-old female presents for evaluation of mostly left-sided back pain. She denies any injury. She woke up with the pain. She describes a burning sensation. She also complains of nausea and vomiting. Denies urinary complaints. Plan for labs, urinalysis, testing. Reevaluation(s) Reevaluation #1: 1337 -- CBC with leukocytosis to 13.7 with left shift. Normocytic anemia, chronic when compared to priors. H&H around baseline and above transfusion threshold. Chemistry without acute electrolyte abnormality requiring intervention. No ALEX. Bilirubin WNL. Serum negative. Urine negative for infection or blood. > CT AP ordered. Morphine offered for pain control however patient prefers Toradol. Zofran given for nausea. will continue to monitor 1901 -- CT abdomen/pelvis shows moderate constipation without obstruction. There is a right ovarian 2.6 cm simple cyst, unlikely the cause of patient's pain. There are punctate mid pole right radiopaque renal calculi, stable when compared to previous scans. No other radiopaque stones visualized. No hydronephrosis. > patient has been treated with Toradol, morphine and cyclobenzaprine. Continues to endorse 10/10 pain, primarily to left lumbar paraspinal region, tender and worse w/ movement which makes me suspect more of a musculoskeletal etiology. > I have concern regarding AST/ALT elevation as this does not appear to be patient's baseline. She denies EtOH consumption. She states that she has been taking Tylenol more recently over the past week. Does not know the dose she has been taking. States there are days she will only take 1 dose and other days where she takes multiple doses. She does not endorse pain to her right upper quadrant. There is no tenderness to palpation of right upper quadrant. Discussed case with Dr. Erickson who recommends obtaining repeat liver enzymes, Tylenol level and PT/INR with re-evaluation. Another dose of morphine ordered. > sign out given to Matty LEBRON pending repeat labs and disposition Reevaluation #2: Patient received in sign-out at change of shift pending repeat LFTs which are improving but still elevated. Tylenol level is negative the patient's INR is normal at 1.0. I discussed this with the patient, she reports she was feeling somewhat better but still has some pain. We will discharge her with cyclobenzaprine she will be encouraged to avoid Tylenol. I also encouraged her to follow up with her primary doctor for repeat labs including LFTs Time: 21:08 Medications Administered Discontinued Medications Generic Name Dose Route Start Last Admin Trade Name Raulq PRN Reason Stop Dose Admin Cyclobenzaprine HCl 10 mg 10/27/24 17:31 10/27/24 18:22 Cyclobenzaprine Hcl 10 Mg Tablet PO 10/27/24 17:32 10 mg ONCE ONE Administration Iohexol 100 ml 10/27/24 15:25 10/27/24 15:26 Iohexol 350 Mg/Ml 100 Ml Infus..Btl IV 10/27/24 15:26 85 ml ONCE ONE Administration Ketorolac Tromethamine 15 mg 10/27/24 13:39 10/27/24 14:20 Ketorolac Tromethamine 15 Mg/Ml Vial IVPUSH 10/27/24 13:40 15 mg ONCE ONE Administration Lidocaine 1 patch 10/27/24 18:14 10/27/24 18:23 Lidocaine 4 % Patch Adh..Patch TRANSDERMA 10/27/24 18:15 1 patch ONCE ONE Administration Protocol Morphine Sulfate 2 mg 10/27/24 15:49 10/27/24 16:03 Morphine Sulfate 2 Mg/Ml Cartridge IVPUSH 10/27/24 15:50 2 mg ONCE ONE Administration Protocol Morphine Sulfate 4 mg 10/27/24 19:04 10/27/24 20:23 Morphine Sulfate 4 Mg/Ml Cartridge IVPUSH 10/27/24 19:05 4 mg ONCE ONE Administration Protocol Ondansetron HCl 4 mg 10/27/24 13:26 10/27/24 14:20 Ondansetron Hcl 4 Mg/2 Ml Vial IVPUSH 10/27/24 13:27 4 mg ONCE ONE Administration Medical Decision Making Medical Decision Making [facility] Narrative: 44-year-old [place]-speaking female with pmhx significant for fibromyalgia, HDL, anxiety presents to the ED today for evaluation of left flank pain x4 days. Vital sigsn stable. afebrile. She is nontoxic appearing and in NAD. Exam significant for abdomen soft, ttp along lower abdomen with both light and deep palpation, no palpable masses. voluntary guarding. no rebound tenderness. normoactive bs. left CVAT Differential diagnoses: atypical appendicitis, diverticulitis, diverticulosis, urinary tract infection, intrauterine , nephrolithiasis, pyelonephritis, TOA, PID, muscle spasm Abdominal exam without peritoneal signs. No evidence of acute abdomen at this time. Low suspicion for vascular catastrophe, bowel obstruction or viscus perforation, ovarian cyst/ rupture/ torsion, ectopic. Presentation not consistent with other acute, emergent causes of abdominal pain at this time. Plan: labs, UA, urine , CT AP, pain control, serial reassessment Differential Diagnosis Differential Diagnoses: The differential diagnosis associated with the presentation includes as above. Admission/Observation Consideration of admission/observation: Escalation of care including admission/observation considered Admission considered on presentation Lab Data [facility] Lab Attestation statement: I reviewed the patient's lab results. as above. 10/27/24 12:45 10/27/24 12:45 Labs: Lab Results 12/30/24 12/30/24 12/30/24 Range/Units 12:44 12:45 19:23 WBC 13.7 H (4.8-10.8) X10*3/uL RBC 4.01 L (4.20-5.50) X10*6/uL Hgb 11.8 L (12.0-16.0) g/dl Hct 36.5 L (37.0-47.0) % MCV 91.0 (80.0-98.0) fL MCH 29.4 (27.0-33.0) pg MCHC 32.3 (31.0-35.0) g/dl RDW 12.4 (11.0-16.0) % Plt Count 298 (160-400) X10*3/uL MPV 10.1 (9.4-12.3) fL Immature Gran % (Auto) 0.7 H (0.0-0.4) % Neut % (Auto) 90.6 H (45-73) % Lymph % (Auto) 5.6 L (20-40) % [place]lier % (Auto) 2.9 (2-11) % Eos % (Auto) 0.0 (0-4) % Baso % (Auto) 0.2 (0-2) % Lymph # (Auto) 0.8 L (1.2-4.9) X10*3/uL [place]lier # (Auto) 0.4 (0.1-1.2) X10*3/uL Eos # (Auto) 0.0 (0.0-0.4) X10*3/uL Baso # (Auto) 0.0 (0.0-0.2) X10*3/uL Abs Immat Gran (auto) 0.09 H (0.00-0.03) X10*3/uL Absolute Neuts (auto) 12.5 H (2.0-8.3) x10*3/uL Absolute Nucleated RBC 0.000 (0.0-0.012) X10*3/uL Nucleated RBC % (auto) 0.0 (0.0-0.2) /100WBC Smear Tech's Comments VERIFIED PT 11.9 (10.9-12.4) SEC INR 1.0 (0.9-1.1) Sodium 138 (135-145) mmol/L Potassium 4.2 (3.3-5.1) mmol/L Chloride 106 (96-108) mmol/L Carbon Dioxide 26 (22-29) mmol/L Anion Gap 10 L (12-20) BUN 6 L (9-16) mg/dL Creatinine 0.65 (0.5-1.4) mg/dL Estim Creat Clear Calc 109.1 Estimated GFR > 60 Random Glucose 102 (60-115) mg/dL Calcium 9.3 (8.4-10.2) mg/dL Total Bilirubin 0.9 (0.0-1.0) mg/dL Direct Bilirubin 0.2 (0.0-0.5) mg/dL AST 218 H (5-31) U/L ALT 168 H (0-31) U/L Alkaline Phosphatase 87 (39-117) U/L C-Reactive Protein 1.36 H (< or = 0.50) mg/dL Total Protein 7.3 (6.5-8.0) g/dL Albumin 3.8 (3.5-5.0) g/dL Lipase 177 H (8-78) U/L Beta HCG, Quant < 2 mIU/mL Urine Color Yellow Urine Appearance Clear Urine pH 5.5 (5.0-9.0) Ur Specific [place] 1.020 (1.005-1.025) Urine Protein Negative (Neg-Trace) mg/dL Urine Glucose (UA) Negative (Negative) mg/dL Urine Ketones Negative (Negative) mg/dL Urine Blood Negative (Negative) Urine Nitrite Negative (Negative) Ur Leukocyte Esterase Negative (Negative) Urine RBC 0-2 (0-2) /HPF Urine WBC 0-5 (0-5) /HPF Ur Squamous Epith Cells 0-2 (0-2) /HPF Urine Bacteria None Seen (None Seen) Hyaline Casts 0-2 (0-2) /LPF Acetaminophen (<30) mcg/mL /30/24 Range/Units 19:24 WBC (4.8-10.8) X10*3/uL RBC (4.20-5.50) X10*6/uL Hgb (12.0-16.0) g/dl Hct (37.0-47.0) % MCV (80.0-98.0) fL MCH (27.0-33.0) pg MCHC (31.0-35.0) g/dl RDW (11.0-16.0) % Plt Count (160-400) X10*3/uL MPV (9.4-12.3) fL Immature Gran % (Auto) (0.0-0.4) % Neut % (Auto) (45-73) % Lymph % (Auto) (20-40) % Collier % (Auto) (2-11) % Eos % (Auto) (0-4) % Baso % (Auto) (0-2) % Lymph # (Auto) (1.2-4.9) X10*3/uL [place]lier # (Auto) (0.1-1.2) X10*3/uL Eos # (Auto) (0.0-0.4) X10*3/uL Baso # (Auto) (0.0-0.2) X10*3/uL Abs Immat Gran (auto) (0.00-0.03) X10*3/uL Absolute Neuts (auto) (2.0-8.3) x10*3/uL Absolute Nucleated RBC (0.0-0.012) X10*3/uL Nucleated RBC % (auto) (0.0-0.2) /100WBC Smear Tech's Comments PT (10.9-12.4) SEC INR (0.9-1.1) Sodium (135-145) mmol/L Potassium (3.3-5.1) mmol/L Chloride (96-108) mmol/L Carbon Dioxide (22-29) mmol/L Anion Gap (12-20) BUN (9-16) mg/dL Creatinine (0.5-1.4) mg/dL Estim Creat Clear Calc Estimated GFR Random Glucose (60-115) mg/dL Calcium (8.4-10.2) mg/dL Total Bilirubin 1.0 (0.0-1.0) mg/dL Direct Bilirubin 0.3 (0.0-0.5) mg/dL AST 166 H (5-31) U/L ALT 152 H (0-31) U/L Alkaline Phosphatase 89 (39-117) U/L C-Reactive Protein (< or = 0.50) mg/dL Total Protein 7.4 (6.5-8.0) g/dL Albumin 3.9 (3.5-5.0) g/dL Lipase (8-78) U/L Beta HCG, Quant mIU/mL Urine Color Urine Appearance Urine pH (5.0-9.0) Ur Specific [place] (1.005-1.025) Urine Protein (Neg-Trace) mg/dL Urine Glucose (UA) (Negative) mg/dL Urine Ketones (Negative) mg/dL Urine Blood (Negative) Urine Nitrite (Negative) Ur Leukocyte Esterase (Negative) Urine RBC (0-2) /HPF Urine WBC (0-5) /HPF Ur Squamous Epith Cells (0-2) /HPF Urine Bacteria (None Seen) Hyaline Casts (0-2) /LPF Acetaminophen < 3 (<30) mcg/mL Independent Interpretation I performed an independent interpretation of an: CT Scan Interpretation: CT AP w/o perinephric stranding. no bowel obstruction. Radiology Impression Discussion of test interpretation with radiology: I have reviewed the radiologist's reading. Radiologist Impression: Report Number: [id number]: Total DLP = 571.00 mGy-cm EXAMINATION: CT ABDOMEN AND PELVIS WITH CONTRAST CLINICAL INFORMATION: Left flank, lower abdominal pain and increased white count. COMPARISON: None available. TECHNIQUE: Multidetector volumetric images were obtained from the superior aspect of the liver through the pubic symphysis following administration 85 mL of Omnipaque 350 intravenous contrast. Sagittal and coronal reformatted images were obtained on the technologist's workstation. Oral contrast: No This CT examination was performed using dose optimization techniques as appropriate, variously including the following: *Automated exposure control *Adjustment of mA and/or kV according to patient size (this includes techniques or standardized protocols for targeted exams where dose is matched to indication/reason for exam; i.e. extremities or head) *Use of iterative reconstruction technique DLP: 571 mGy-cm FINDINGS: LUNG BASES: There is bibasilar atelectasis or scarring. The heart size is normal. There is a small hiatal hernia. LIVER, GALLBLADDER, AND BILIARY TREE: The liver is normal in size, shape, and attenuation. No focal hepatic lesion or biliary ductal dilatation is present. The gallbladder is surgically absent. PANCREAS: Unremarkable. SPLEEN: Unremarkable. ADRENAL GLANDS: Unremarkable. KIDNEYS AND URETERS: The kidneys are normal in size, shape, and attenuation. There is a 1 mm radiopaque calculi nonobstructive mid pole right kidney on coronal image 57/6, unchanged to previous study. No additional radiopaque calculi seen. BLADDER: Unremarkable. GASTROINTESTINAL TRACT: There is moderate scattered stool and gas seen in colon without distention. The small bowel loops are normal caliber. Appendix is not visualized. There is no inflammatory process seen in the abdomen no free air or free fluid seen. ABDOMINAL WALL: There are postsurgical changes along the umbilicus. No hernia seen in the abdominal wall.. LYMPH NODES: Normal. VASCULAR: Unremarkable. PELVIC VISCERA: There is a 2.6 cm right ovarian simple cyst. The uterus is not visualized likely surgically removed. No abnormal size pelvic or inguinal lymph nodes seen. OSSEOUS STRUCTURES: Unremarkable. CT/CT abdomen pelvis w IV con IMPRESSION: Moderate constipation. No obstruction seen. Midline umbilical postsurgical changes likely from hysterectomy. Right ovarian 2.6 cm simple cyst. Punctate midpole right radiopaque renal calculi, stable. No caliectasis or hydronephrosis. Fleischner guidelines were followed. Electronically signed by: Jayant Hickman MD 10/27/2024 04:56 PM [facility] External Record Review External record reviewed: Inpatient record Prescription Management I considered prescription management with: Pain Medication Social Determinants Patient?s care significantly limited by Social Determinants of Health including: Other Social Determinant of Health Critical Care Time Critical Care Time Critical Care Time: Yes Total Critical Care Time: 33 Attestation: Critical care time in the amount of 33 minutes has been provided to the patient in terms of direct patient care, frequent reevaluation on IV morphine, review and interpretation of medical data and results, and management of potentially life-threatening conditions. This is all outside of any medical procedures. Discharge Plan Discharge Clinical Impression: Left flank pain Patient Disposition: Home, Self-Care Instructions: Flank Pain (ED) Additional Instructions: Your liver enzymes were slightly elevated today. Your CT scan showed constipation You should use an [id number] stool softener such as MiraLax, increase fluid and fiber intake in your diet I recommend that you avoid Tylenol until you are cleared by your primary doctor to take it again. You should have repeat blood work including LFTs within the next 2 weeks Return sooner for new or worsening symptoms Take cyclobenzaprine as needed for muscle spasms. This may make you drowsy, do not drink alcohol or drive after taking it Prescriptions: New cyclobenzaprine 10 mg tablet 10 mg PO TID PRN (Reason: muscle spasm) Qty: 20 0RF No Action acetaminophen [Tylenol Extra Strength] 500 mg tablet 1,000 mg PO Q6H PRN (Reason: fever or pain) Qty: 20 0RF ibuprofen 400 mg tablet 400 mg PO TID PRN (Reason: fever or pain) Qty: 30 0RF sertraline 100 mg tablet 100 mg PO DAILY sumatriptan succinate 50 mg tablet 50 mg PO DAILY PRN (Reason: Migraine Headache) rosuvastatin 40 mg tablet 40 mg PO BEDTIME albuterol sulfate [Ventolin HFA] 90 mcg/actuation HFA aerosol inhaler 2 puff INHALATION Q4H PRN (Reason: wheezing) omeprazole 20 mg capsule,delayed release(DR/EC) 20 mg PO DAILY@0630 Interventions: ED Discharge Assessment Last Done: 10/27/24 21:44 Discharge Date/Time: 10/27/24 21:47 Print Language: [place]
[2024-10-27 12:53] LABS: Basophils Percent Auto 0.2 % (0-2); Hematocrit 36.5 % (37.0-47.0); Hemoglobin 11.8 g/dl (12.0-16.0); Imm Gran Abs Auto 0.09 X10*3/uL (0.00-0.03); Imm Gran Pct Auto 0.7 % (0.0-0.4); Lymphocytes Absolute Auto 0.8 X10*3/uL (1.2-4.9); Lymphocytes Percent Auto 5.6 % (20-40); MANUAL DIFF FLAG SCAN; Mean Corpuscular HGB Conc 32.3 g/dl (31.0-35.0); Mean Corpuscular Hemoglobin 29.4 pg (27.0-33.0); Mean Platelet Volume 10.1 fL (9.4-12.3); Monocytes Absolute Auto 0.4 X10*3/uL (0.1-1.2); Monocytes Percent Auto 2.9 % (2-11); Neutrophils Absolute Auto 12.5 x10*3/uL (2.0-8.3); Neutrophils Percent Auto 90.6 % (45-73); Platelet Count 298 X10*3/uL (160-400); Red Blood Count 4.01 X10*6/uL (4.20-5.50); Red Cell Distribution Width 12.4 % (11.0-16.0); SCAN SMEAR FLAG 1; White Blood Count 13.7 X10*3/uL (4.8-10.8)
[2024-10-27 12:53] LABS: Appearance Urine Clear; Color Urine Yellow; Glucose Urine UA Negative (Negative); Leukocyte Esterase Urine Negative (Negative); Nitrite Urine Negative (Negative); PH 5.5 (5.0-9.0); Urine Blood Negative (Negative); Urine Ketones Negative (Negative); Urine Protein Negative (Neg-Trace)
[2024-10-27 12:58] LABS: Bacteria Urine None Seen (None Seen); Hyaline Casts Urine 0-2 /LPF (0-2); RBC Urine 0-2 /HPF (0-2); Squamous Epithelial Cell Urine 0-2 /HPF (0-2); WBC Urine 0-5 /HPF (0-5)
[2024-10-27 13:04] LABS: Alanine Aminotransferase 168 U/L (0-31); Albumin Level 3.8 g/dL (3.5-5.0); Alkaline Phosphatase 87 U/L (39-117); Anion Gap 10 (12-20); Aspartate Amino Transferase 218 U/L (5-31); Bilirubin Total 0.9 mg/dL (0.0-1.0); Blood Urea Nitrogen 6 mg/dL (9-16); Calcium 9.3 mg/dL (8.4-10.2); Carbon Dioxide 26 mmol/L (22-29); Chloride 106 mmol/L (96-108); Creatinine Clr Calc Pharmacy 109.1; Estimated Glomerular Filt Rate > 60; Glucose Random 102 mg/dL (60-115); Lipase 177 U/L (8-78); Potassium 4.2 mmol/L (3.3-5.1); Sodium 138 mmol/L (135-145); Total Protein 7.3 g/dL (6.5-8.0)
[2024-10-27 13:11] LABS: HCG Quantitative < 2 mIU/mL
[2024-10-27 13:15] LABS: SLIDE REVIEW VERIFIED
[2024-10-27] MEDS: ondansetron HCL 4 MG/2 ML VIAL IVPUSH (14:20)
[2024-10-27] MEDS: Ketorolac Tromethamine 15 MG/ML VIAL IVPUSH (14:20)
[2024-10-27] MEDS: iohexoL 350 MG/ML 100 ML INFUS..BTL IV (15:26)
[2024-10-27] MEDS: Morphine Sulfate 2 MG/ML CARTRIDGE IVPUSH (16:03)
[2024-10-27 16:06] VITALS: BP 119/73; PULSE 55; RESP 16; O2SAT 98
[2024-10-27 18:11] VITALS: BP 126/78; PULSE 61; RESP 16; TEMP 36.2; O2SAT 96
[2024-10-27] MEDS: Cyclobenzaprine HCl 10 MG TABLET PO (18:22)
[2024-10-27] MEDS: Lidocaine 4 % Patch ADH..PATCH 1 PATCH TRANSDERMA (18:23)
[2024-10-27 19:22] LABS: Bilirubin Direct 0.2 mg/dL (0.0-0.5); C Reactive Protein 1.36 mg/dL (< or = 0.50)
[2024-10-27 19:36] LABS: Prothrombin Time 11.9 SEC (10.9-12.4)
[2024-10-27 19:48] LABS: Acetaminophen LAB < 3 mcg/mL (<30); Alanine Aminotransferase 152 U/L (0-31); Albumin Level 3.9 g/dL (3.5-5.0); Alkaline Phosphatase 89 U/L (39-117); Aspartate Amino Transferase 166 U/L (5-31); Bilirubin Direct 0.3 mg/dL (0.0-0.5); Total Protein 7.4 g/dL (6.5-8.0)
[2024-10-27] MEDS: Morphine Sulfate 4 MG/ML CARTRIDGE IVPUSH (20:23)
[2024-10-27 21:11] VITALS: BP 125/79; PULSE 61; RESP 16; TEMP 36.2; O2SAT 94
[2024-10-27 21:44] VITALS: BP 125/79; PULSE 61; RESP 16; TEMP 36.2; O2SAT 94
== END 2024-10-27 21:47 | disposition home or self-care (01) ==
PROVIDERS: Emergency Medicine; Physician Assistant; Physician Assistant Medical; Emergency Provider Emergency Medicine; PCP Nurse Practitioner Primary Care
DX: R10.30 Lower abdominal pain, unspecified (principal); R11.2 Nausea with vomiting, unspecified; D72.829 Elevated white blood cell count, unspecified; D64.9 Anemia, unspecified; N83.201 Unspecified ovarian cyst, right side; Z79.899 Other long term (current) drug therapy
CPT/HCPCS: 36415; 74177; 80053; 80076; 80143; 81001; 82248; 83690; 84702; 85025; 85610; 86140; 96374; 96375; 96376; 99283; 99284; J1885; J2270; J2405; Q9967

== ENCOUNTER → 2024-10-27 13:26 | Outpatient (BNV) | payer MEDICAID, SELFPAY | PROVIDERS: Emergency Provider Emergency Medicine; PCP Nurse Practitioner Primary Care; Visit Provider Radiology Diagnostic Radiology | DX: R10.9 Unspecified abdominal pain (principal) | CPT/HCPCS: 74177 ==

== ENCOUNTER 2024-11-12 08:02 | Outpatient (REF) | payer MEDICAID, SELFPAY ==
[2024-11-12 11:06] LABS: MANUAL DIFF FLAG NO
[2024-11-12 11:16] LABS: Basophils Absolute Auto 0.1 X10*3/uL (0.0-0.2); Basophils Percent Auto 0.7 % (0-2); Eosinophils Absolute Auto 0.2 X10*3/uL (0.0-0.4); Eosinophils Percent Auto 1.9 % (0-4); Hematocrit 35.2 % (37.0-47.0); Hemoglobin 11.4 g/dl (12.0-16.0); Imm Gran Abs Auto 0.06 X10*3/uL (0.00-0.03); Imm Gran Pct Auto 0.7 % (0.0-0.4); Lymphocytes Percent Auto 24.2 % (20-40); Mean Corpuscular HGB Conc 32.4 g/dl (31.0-35.0); Mean Corpuscular Hemoglobin 29.9 pg (27.0-33.0); Mean Corpuscular Volume 92.4 fL (80.0-98.0); Mean Platelet Volume 10.6 fL (9.4-12.3); Monocytes Absolute Auto 0.7 X10*3/uL (0.1-1.2); Monocytes Percent Auto 8.3 % (2-11); Neutrophils Absolute Auto 5.3 x10*3/uL (2.0-8.3); Neutrophils Percent Auto 64.2 % (45-73); Platelet Count 319 X10*3/uL (160-400); Red Blood Count 3.81 X10*6/uL (4.20-5.50); Red Cell Distribution Width 12.7 % (11.0-16.0); White Blood Count 8.2 X10*3/uL (4.8-10.8)
[2024-11-12 11:24] LABS: Estimated Average Glucose 114 mg/dL; Hemoglobin A1C 111.9578 umol/L; Hemoglobin A1c % 5.6 % (<6.0); Total Hemoglobin (HGBA1C) 2957.7533 umol/L
[2024-11-12 11:37] LABS: Alanine Aminotransferase 8 U/L (0-31); Albumin Level 3.6 g/dL (3.5-5.0); Alkaline Phosphatase 60 U/L (39-117); Aspartate Amino Transferase 27 U/L (5-31); Bilirubin Direct 0.2 mg/dL (0.0-0.5); Bilirubin Total 0.7 mg/dL (0.0-1.0); Cholesterol 203 mg/dL (<200); HDL Cholesterol 53 mg/dL (>40); Iron 74 mcg/dL (30-160); LDL Cholesterol Calculated 124 mg/dL (<100); Lipase 21 U/L (8-78); Percent Iron Saturation 28 % (15-50); Total Iron Binding Capacity 265 mcg/dL (228-428); Total Protein 6.8 g/dL (6.5-8.0); Triglycerides 131 mg/dL (<150); Unsaturated Iron Binding 191 ug/dL
== END 2024-11-12 08:03 | disposition home or self-care (01) ==
LOC: HO.HHCL 08:02
PROVIDERS: Visit Provider Nurse Practitioner Primary Care
DX: R74.01 Elevation of levels of liver transaminase levels (principal); R53.83 Other fatigue; R73.03 Prediabetes; E78.5 Hyperlipidemia, unspecified
CPT/HCPCS: 36415; 80061; 80076; 83036; 83540; 83690; 85025

== ENCOUNTER 2024-11-17 14:20 | Outpatient (REF) | payer MEDICAID, SELFPAY | END 2024-11-17 14:21 | disposition home or self-care (01) | LOC: HO.MAMMO 14:20 | PROVIDERS: Visit Provider Nurse Practitioner Primary Care | DX: Z12.31 Encounter for screening mammogram for malignant neoplasm of breast (principal) | CPT/HCPCS: 77063; 77067 ==

== ENCOUNTER → 2024-11-17 15:00 | Outpatient (BNV) | payer MEDICAID, SELFPAY | PROVIDERS: Visit Provider Internal Medicine | DX: Z12.31 Encounter for screening mammogram for malignant neoplasm of breast (principal) | CPT/HCPCS: 77063; 77067 ==

== ENCOUNTER 2025-01-10 08:03 | Inpatient (IN) | payer MEDICAID, SELFPAY ==
[2025-01-10] VITALS (7 sets, daily range): BP systolic 112–140; BP diastolic 62–71; PULSE 61–85; RESP 16–18; TEMP 36–36.7; O2SAT 94–99; BMI 32.8
--- NOTE | ~2025-01-10 | CT_ITS ---
CLINICAL HISTORY: diffuse abdominal pain, R flank pain CT abdomen and pelvis with contrast Comparison: CT - CT ABDOMEN PELVIS W IV CON - 01/10/25 09:50 EDT Findings: No consolidation or effusion. The patient is status post cholecystectomy. The liver is otherwise unremarkable. The rest of the solid organs are normal. The patient is status post hysterectomy. There are localized inflammatory changes in the left upper quadrant mesentery related to a redundant segment of the sigmoid colon and most compatible with epiploic appendagitis. The colon is otherwise unremarkable though there is a relatively large stool burden. There is no evidence of appendicitis. Pelvic contents unremarkable. Normal appendix. No acute fracture. The rest of the GI tract is unremarkable. IMPRESSION: Epiploic appendagitis left upper quadrant related to a redundant segment of sigmoid colon. This document has been electronically signed by: Alvarez Estrada MD on 01/10/2025 11:56:18
--- OUTSIDE RECORDS SUMMARY | 2025-01-10 08:32 | XMS_ITS | Continuity of Care Document ---
Author Organization [facility] Address [address] [place] [address] [address] [place] [address]- Care Team Providers Care Hearing Health Technician Name Role Phone Ashwin REGISTER IN CHANCERY, Evy Perez Primary Care Physician [phone] [id number] Date(s): 11/14/24 - 01/04/[address] [place], [place] [address] Attending Physician: Cory Dooley MD Encounter Type: Pre Office Visit Allergies, Adverse Reactions, Alerts No Known Allergies Immunizations Given and Recorded Vaccine Date Status Refusal Reason SARS-CoV-2 mRNA ([id number]) vax 11/27/21 Recorded SARS-CoV-2 (COVID-19) mRNA BNT-162b2 vac 03/23/21 Recorded SARS-CoV-2 (COVID-19) mRNA BNT-162b2 vac 03/02/21 Recorded influenza virus vaccine, inactivated 1 09/29/10 Gi haris 1Admin Note: per pt Medications Dexilant 60 mg oral delayed release capsule 1 capsule = 60 mg, By Mouth, Daily, # 90 capsule, 3 Refills, Maintenance, 10/27/24 8:38:00 AM EST, CR Capsule, [facility] #[id number], Partial fill upon patient request if the prescription is for a schedule II opioid drug., 160, cm, 10/27/24 8:25:00 EST, Height, 80.7, kg, 10/16/24 14:36:00 EST, Dry Weight Start Date: 10/27/24 Status: Ordered Quantity: 90.0 Unit: capsule Repeat number: 4 Indication: Gastro-esophageal reflux disease without esophagitis esomeprazole 40 mg oral enteric coated capsule 1 capsule, By Mouth, 2 times a day, # 90 capsule, 0 Refills, Maintenance, 09/05/24 11:50:00 AM EST, [facility] #[id number], 160, cm, 09/01/24 9:42:00 EST, Height, 81.9, [...] 0 Refills, Maintenance, 02/26/24 1:51:00 PM EDT, [facility] #[id number], Partial fill upon patient request if the prescription is for a schedule II opioid drug., 1 patch Topically Daily,Instr:remove patches after 12 hours, 160, cm, 02/26/24 7:26:00 EDT, Height, 79.6, kg, 02/26/24 7:26:00 EDT, Dry Weight Start Date: 02/26/24 Status: Ordered Quantity: 10.0 Unit: patch Repeat number: 1 MiraLax oral powder for reconstitution = 17 Gm, By Mouth, Daily, dissolve in water or juice. My increase to 2-3 times a day as needed for constipation, # 255 Gm, 2 Refills, Maintenance, 10/27/24 8:42:00 AM EST, [facility] #[id number], Partial fill upon patient request if the prescription is for a schedule II opioid drug., 17 Gm By Mouth Daily,x30 days,Instr:dissolve in water or juice. My increase to 2-3 times a day as needed for constipation, 160, cm, 10/27/24 8:25:00 EST, Height, 80.7, kg, 10/16/24 14:36:00 EST, Dry Weight Start Date: 10/27/24 Stop Date: 01/25/25 Status: Ordered Quantity: 255.0 Unit: g Repeat number: 3 Indication: Constipation, unspecified naproxen 500 mg oral tablet 1 tablet [...] Refills, Maintenance, 07/14/24 3:00:00 PM EDT, Tablet, [facility] #[id number], Partial fill upon patient request if the [...] Team Personnel Name: Liliam Downing RN Position: [facility] AMB Nurse Member Role: Primary Care Nurse Name: Bakari Kruse MA Position: [facility] Outreach Member Role: Lifetime Consulting Physician Name: Patricia Feng RN Position: [facility] Onco RN Member Role: Primary Care Nurse Name: Shelly Anton RN Position: [facility] RN Member Role: Primary Care Nurse Name: Evy Christopher NP Position: [facility] Outreach Member Role: PCP Address: [address] [place] [address] Telecom: Name: Albertina Luna RN Position: [facility] RN Member Role: Primary Care Nurse Care Team Related Persons Name: SMOOTH QUIROZ Insurance Providers Guarantor name: JOSEPH COLIN [facility] Information #: 1 Payer: [employer] Member Number: [id number] Policy Number: NA Group Number: NA Health Plan Information #: 2 Payer: [employer] Member Number: [id number] Policy Number: NA Group Number: NA
--- OUTSIDE RECORDS SUMMARY | 2025-01-10 08:33 | XMS_ITS | Encounter Summary ---
Author Organization [employer] Address [address] 7t [place] [address] Care Team Providers Care Vp Corporate Partnerships Name Role Phone Evy Christopher Primary Care Provider [phone] Romeo Echavarria RN Unavailable [phone] Reason for Visit * Reason Onset Date Comments Medication Question 12/24/2024 Encounter Details Date Type Department Care Team ([facility] Contact Info) Description 12/24/2024 Telephone [facility] MEDICINE [address] [place], [place] [phone] Evy Christopher ANP [address] [place], [place] [phone] Medication Question Social History Tobacco Use Types Packs/Day Years Used Date Smoking Tobacco: Never Passive Smoke Exposure: Never Smokeless Tobacco: Never Alcohol Use Standard Drinks/Week Comments Never 0 (1 standard drink = 0.6 oz pur e alcohol) Alcohol Answer Date Recorded Frequency of Alcohol Consumption Not on file 05/23/2024 Average Number of Drinks Not on file 024 Frequency of Binge Drinking Not on file 04/29 Score 0 05/23/2024 Depression Answer Date Recorded Patient Health Questionnaire-9 Score 2 05/23/2024 Patient Health Questionnaire-9 Score 2 05/23/2024 Last PHQ-9: Questionnaire Data Not on file 0 05/23/2024 Housing Stability Answer Date Recorded What is your housing situation today? I have maureen herndon 09/11/[address] you li ve. Do you have problems with any of the following? None of the above 09/11/2023 Food Insecurity Answer Date Recorded Within the past 12 months, y ou worried that your food would run out before you got money to buy more: Sometimes True 2024 Within the past 12 months,th e food you bought just didn't last and you didn't have enough money to get more: Sometimes True 12/08/2024 Transportation Answer Date Recorded In the past 12 months, has l ack of transportation kept you from medical appts, meetings, work or from getting things needed for daily living? No 09/11/2023 Utilities Answer Date Recorded In the past 12 months, has t he electric, gas, oil or water company threatened to shut off services in your home? No 09/11/2023 Depression Answer Date Recorded Patient Health Questionnaire-2 Score 0 05/23/2024 Internet Access Answer Date Recorded Internet Access Q1 Yes 12/08/2024 Internet Access Q2 I do not want or need it 11/29 Comments Unknown Sex and Gender Information Value Date Recorded Sex Assigned at Female 08/28/2022 10:14 AM EDT Legal Sex Female 10:14 AM EDT Gender Identity Choose not to disclose 10:14 AM EDT Sexual Orientation Straight 08/28/2022 10 :14 AM EDT documented as of this encounter Miscellaneous Notes * Telephone Encounter - Karlene Vo RN - 01/01/2025 3:23 PM EST Telephone call to pt using [facility] vegetables cook Liza #[id number]. Reviewed [facility] nutrition referral placed and to expect call to schedule. Reviewed importance of regular exercise and healthy diet beforediscussing weight loss medications at January appt. Advised pt of lab results: anemia is stable, liver function is normal, and A1C level is stable and considered prediabetic. Asked pt for status check after [facility] ED visit yesterday; pt stated feels better but I still have sciatica pain and left shoulder pain. Pt also saw Dr Cabrales in [facility] for this on 12/30/24. Reviewed with pt orthopedics referral and physical therapy referral, gave contact info for both places as letters just went out yesterday. Advised pt to call back if symptoms unresolved, reviewed [employer] consumer insights intern and [facility] /Sunday hours. Pt verbalized understanding, no further questions. * Telephone Encounter - Karlene Vo RN - 12/31/2024 12:49 PM EST Telephone call to pt x1 using [facility] vegetables cook Papi # to really results and plan of care, no answer, left voicemail to call back [facility]. -- Evy Christopher NP Hi-so sorry for the duplicate message. Her anemia is stable please encourage iron rich foods. Liverfunction is returned to baseline which is great lipase was normal also excellent and A1c is basically stable at 5.6 which is still in the prediabetic range. Thanks - I think we can refer to [facility] nutrition at [facility] instead of [facility]. I agree - [employer] looks like food insecurity organization in [facility]. Please recommend patient to increase exercise anddietary changes so that when we see each other in a month we can discuss any change in weight or lack thereof to help support prescription for a weight loss medication at that time. We need to be able to show her insurance company that conservative measures have not worked or have been partially effective. * Telephone Encounter - Karlene Vo RN - 12/24/2024 12:51 PM EST Telephone call returned to pt using [facility] vegetables cook Baldo #. Pt stated she would like to start a weight loss injection, informed pt that she will need provider visit to discuss this. Pt already scheduled for office visit follow up on 02/07/25, added this to appt notes. Pt asked for sooner appt, advised her there are no sooner appts of this appt type given there is no acute illness, advised her she can call and ask for cancellations and nurses will send FYI to provider now to inform him. Pt verbalized understanding. She then asked for nutrition referral, declined [facility] section plotter operator, asked for referral to [employer]. Se[employer] Team Lead unfamiliar with this, advised her to reach out to them and see if they take her insurance. Pt verbalized understanding. * Telephone Encounter - Naga Monzon - 12/24/2024 9:39 AM EST Tc from pt requesting weight loss injections. Afua: [phone] (Irish) documented in this encounter Plan of Treatment Upcoming Encounters Date Type Department Care Team (Late st Contact Info) Description 02/09/2025 2:00 PM EDT Office Visit [facility] MEDICINE [address] [place] [address] Evy Christopher ANP [address] [place] [address] documented as of this encounter Visit Diagnoses Not on filedocumented in this encounter Additional Health Concerns Assessment Noted Time PHQ-9 Depression Total Score: 2 05/23/20 24 9:49 AM EDT documented as of this encounter Care Teams Vp Corporate Partnerships Relationship Specialty Start Date End Date Evy Christopher ANP [address] [place] [address] PCP - General Family Medicine 06/20/21 Romeo Echavarria, SUKHWINDER [address] [place] [address] Baseball Sewer HandOveredge Machine Operator 12/25/24 documented as of this encounter
--- OUTSIDE RECORDS SUMMARY | 2025-01-10 08:33 | XMS_ITS | Encounter Summary ---
Author Organization [employer] Address [address] 7[address] [place] [address] Care Team Providers Care Client Support Consultant Name Role Phone Evy Christopher JORGE A Primary Care Provider [phone] Romeo Echavarria RN Unavailable [phone] Encounter Details Date Type Department Care Team (Late st Contact Info) Description 12/26/2024 9:15 AM EST Office Visit [facility] OPTOMETRY [address] [place], [place] [phone] Stefano, Pam, OD [address] [place], [place] [phone] Myopia of both eyes (Primary Dx) Social History Tobacco Use Types Packs/Day Years [...] AM EDT documented as of this encounter Progress Notes * Pam Agarwal OD - 12/26/2024 9:15 AM EST MH glasses were dispensed. documented in this encounter Plan of Treatment Upcoming Encounters Date Type Department Care Team (Late st Contact Info) Description 02/09/2025 2:00 PM EDT Office Visit [facility] MEDICINE [address] [place] [address] Evy Christopher ANP [address] [place] [address] documented as of this encounter Visit Diagnoses Diagnosis Myopia of both eyes- Primary documented in this encounter Additional Health Concerns Assessment Noted Time PHQ-9 Depression Total Score: 2 05/23/20 24 9:49 AM EDT documented as of this encounter Care Teams Client Support Consultant Relationship Specialty Start Date End Date Evy Christopher ANP [address] [place] [address] PCP - General Family Medicine 06/20/21 Romeo Echavarria, SUKHWINDER [address] [place] [address] DistresserPark Manager 12/25/24 documented as of this encounter
--- OUTSIDE RECORDS SUMMARY | 2025-01-10 08:33 | XMS_ITS ---
Author Organization [facility] Address [address] [place] [phone] Care Team Providers Care Student Teaching Coordinator Name Role Phone [facility] Primary Care Provider Jada Garrison Jr, Giovany Fitch REASON FOR VISIT Patient presents today for ABD PAIN Encounters Encounter Location Date Provider Diagnosis [facility] [address] [facility] [address] [place] [phone] 08/25/2024 Giovany Garrison Jr Plan Of Treatment No Information Progress Notes * JOSEPH COLINDOB:1980 ([age] yo F)Acc No.[id number]:08/25/2024 Progress Notes Patient:?JOSEPH COLIN Provider:?Giovany Garrison MD :1980???Age:44 Y???Sex:Female D ate:08/25/2024 Address:[address] [place], [place] [id number] Pcp:[facility] N.P. Subjective: * Chief Complaints: * ???1. Patient presents today for ABD PAIN. * Medical History:? Objective: * Vitals:? Assessment: Plan: * Treatment: * * The named appointment provid er may or may not be the originator of this progress note, and it is not deemed complete until electronically signed by the appointment provider. Sign off status: Pending * Provider:?Goivany Garrison MD Date:?1 Generated for Elton mccann/Eligio/eTcharissasmitting on:?01/10/2025 08:33 AM EDT
--- OUTSIDE RECORDS SUMMARY | 2025-01-10 08:33 | XMS_ITS | Encounter Summary ---
Author Organization [employer] Address [address] [facility] 7t [place] [address] Care Team Providers Care Applications Scientist Name Role Phone Evy Christopher Primary Care Provider [phone] Romeo Echavarria RN Unavailable [phone] Reason for Visit * Reason Onset Date Comments Care Management 01/07/2025 C3CM- F/U call # 1/LVM Encounter Details Date Type Department Care Team (Late st Contact Info) Description 01/07/2025 Telephone [facility] MEDICINE [address] [place], [place] [phone] Evy Christopher ANP [address] [place], [place] [phone] Care Management (C3CM- F/U call # 1/LVM) Social History Tobacco Use Types Packs/Day Years [...] t he electric, gas, oil or water niiu threatened to shut off services in your [...] encounter Miscellaneous Notes * Telephone Encounter - Romeo Echavarria RN - 01/07/2025 2:27 PM EDT CM Romeo Echavarria RN placed outbound call to patient for follow up call. No answer at this time. LVMintroducing myself from [facility] CM Department. Requested call back. CM reinforced direct contact information for any additional questions or concerns. Education provided on [facility]In Ur[facility] Care located in [facility] of [facility]. Patient provided with after-hours line for [facility], , which offer night time triage service and option to transfer to conductor symphonic orchestra provider if needed. CM will attempt another follow up call within 10 days. documented in this encounter Plan of Treatment Upcoming Encounters Date Type Department Care Team (Late st Contact Info) Description 02/09/2025 2:00 PM EDT Office Visit [facility] MEDICINE [address] [place] [address] Evy Christopher ANP [address] [place] [address] documented as of this encounter Visit Diagnoses Not on filedocumented in this encounter Additional Health Concerns Assessment Noted Time PHQ-9 Depression Total Score: 2 05/23/20 24 9:49 AM EDT documented as of this encounter Care Teams Applications Scientist Relationship Specialty Start Date End Date Evy Christopher ANP [address] [place] [address] PCP - General Family Medicine 06/20/21 Romeo Echavarria, SUKHWINDER [address] [place] [address] Color BlenderLens Generating Machine Tender 12/25/24 documented as of this encounter
--- OUTSIDE RECORDS SUMMARY | 2025-01-10 08:33 | XMS_ITS | Encounter Summary ---
Author Organization [employer] Address [address] 7[address] [place] [address] Care Team Providers Care Course Developer Name Role Phone Evy Christopher Primary Care Provider [phone] Reason for Visit * Reason Onset Date Comments Referral 12/22/2024 Encounter Details Date Type Department Care Team ([facility] st Contact Info) Description 12/22/2024 Telephone [facility] MEDICINE [address] [place], [place] [phone] Evy Christopher ANP [address] [place], [place] [phone] Referral Social History Tobacco Use Types Packs/Day Years [...] encounter Miscellaneous Notes * Telephone Encounter - Lili Lucero - 12/22/2024 10:40 AM EST Pain management referral was re faxed on 12/22/2024 confirmation scanned in chart. documented in this encounter Plan of Treatment Upcoming Encounters Date Type Department Care Team (Late st Contact Info) Description 02/09/2025 2:00 PM EDT Office Visit [facility] MEDICINE [address] [place] [address] Evy Christopher ANP [address] [place] [address] documented as of this encounter Visit Diagnoses Not on filedocumented in this encounter Additional Health Concerns Assessment Noted Time PHQ-9 Depression Total Score: 2 05/23/20 24 9:49 AM EDT documented as of this encounter Care Teams Course Developer Relationship Specialty Start Date End Date Evy Christopher ANP [address] [place] [address] PCP - General Family Medicine 06/20/21 documented as of this encounter
--- OUTSIDE RECORDS SUMMARY | 2025-01-10 08:33 | XMS_ITS | Encounter Summary ---
Author Organization [employer] Address [address] [place] [address] Care Team Providers Care Audio Experience Expert Name Role Phone Evy Christopher Primary Care Provider [phone] Romeo Echavarria RN Unavailable [phone] Reason for Visit * Reason Comments Transition Of Care (Tcm) Encounter Details Date Type Department Care Team ([facility] st Contact Info) Description 01/01/2025 Patient Outreach [facility] MEDICINE [address] [place], [place] [phone] Evy Christopher ANP [address] [place] [address] Transition Of Care (Tcm) Social History Tobacco Use Types Packs/Day Years [...] as of this encounter Progress Notes * Keri Tierney RN - 01/01/2025 12:59 PM EST Transition of Care Note Afua Hector is going through a recent transition of care. * Karlene Vo RN - 01/01/2025 12:59 PM EST Images from the original note were not included. Hospital Discharges and Admission for [facility] Type of Visit: Emergency Department Date of Admission/Visit: 12/30/24 Date of Discharge: 12/30/24 Facility: [facility] Diagnosis: L Neck, arm and leg pain Disposition: Discharged Home Follow-Up Actions Follow-Up Needed: None/self-monitoring Follow-Up Outcome: Spoke to Patient Initial Contact Date: 01/01/25 Patient Contacted: Yes Patient Status: Unchanged . Pt reports feeling okay but I still have the sciatic and left shoulderpain. Pt went [facility]24 and [facility] ED on 12/31/24 for same concerns. The full discharge summary is Is available under media scanned document Review Flowsheet [facility] Transition of Care Documentation Type of Visit Date of Admission/Visit Date of Discharge Facility Diagnosis Disposition 05/12/2024 11:40 AM Hospital Admission 05/09/2024 05/11/2024 [facility] Transaminitis Discharged Home 06/04/2024 2:39 PM Emergency Department 06/04/2024 06/04/2024 [facility] Back pain Discharged Home 06/24/2024 8:23 AM Emergency Department 06/23/2024 06/23/2024 [facility] asthma,abd pain,vomiting Discharged Home 07/24/2024 8:23 AM Emergency Department 07/23/2024 4:52pm 07/23/2024 8:08pm [facility] Dog Bite Lt Forearm Left AMA 09/08/2024 9:45 AM Emergency Department 09/06/2024 4:25 pm 09/06/2024 8:28 pm [facility] Chest pain Discharged Home 09/12/2024 8:23 AM Emergency Department 09/10/2024 09/10/2024 [facility] Left lower quadrant pain, Abdominal Pain Discharged Home 09/12/2024 2:00 PM Emergency Department 09/10/2024 09/10/2024 [facility] Left lower quadrant pain, Abdominal Pain Discharged Home 10/27/2024 8:33 AM Emergency Department 10/27/2024 10/27/2024 [facility] Gastro-esophageal reflux disease without esophagitis Discharged Home 12/08/2024 9:56 AM Emergency Department 12/07/2024 12/07/2024 [facility] PAIN L SHOULDER, EXTREMITY WEAKNESS, CERVICALGIA Discharged Home 01/01/2025 12:59 PM Emergency Department 12/30/2024 12/30/2024 [facility] L Neck, arm and leg pain Discharged Home Recent Visits Date Type Provider Dept 12/30/24 Office Visit Beatrice Cabrales MD [facility] 11/11/24 Office Visit JORGE A Bernal [facility] Medicine 09/19/24 Office Visit Dagoberto Pisano MD [facility] 09/09/24 Office Visit JORGE A Bernal [facility] Medicine 07/18/24 Office Visit JORGE A Bernal [facility] Medicine 06/23/24 Office Visit Marie dArian MD [facility] 06/02/24 Office Visit ISHA Hines [facility] 05/23/24 Office Visit Rosalva Flores NP [facility] Medicine 05/07/24 Office Visit JORGE A Bernal [facility] Medicine 04/23/24 Office Visit ISHA Hines [facility] Showing recent visits within past 365 days with a meds authorizing provider and meeting all other requirements Future Appointments Date Type Provider Dept 02/09/25 Appointment JORGE A Bernal [facility] Medicine Showing future appointments within next 150 days with a meds authorizing provider and meeting all other requirements Patient was educated on hours of operation. Provided information for the orthopedic surgeon referral and physical therapy. Reviewed with pt to call back [facility] if symptoms don't improve, reviewed [facility] hours and [facility] franchise consultant. Pt verbalized understanding. documented in this encounter Plan of Treatment Upcoming Encounters Date Type Department Care Team (Late st Contact Info) Description 02/09/2025 2:00 PM EDT Office Visit [facility] MEDICINE [address] [place] [address] Evy Christopher ANP [address] [place] [address] documented as of this encounter Visit Diagnoses Not on filedocumented in this encounter Additional Health Concerns Assessment Noted Time PHQ-9 Depression Total Score: 2 05/23/20 24 9:49 AM EDT documented as of this encounter Care Teams Audio Experience Expert Relationship Specialty Start Date End Date Evy Christopher ANP [address] [place] [address] PCP - General Family Medicine 06/20/21 Romeo Echavarria, RN [address] [place] [address] Manpower Development Specialist ManagerSenior Administrative Assistant 12/25/24 documented as of this encounter
--- OUTSIDE RECORDS SUMMARY | 2025-01-10 08:33 | XMS_ITS | Encounter Summary ---
Author Organization [employer] Address [address] [facility] 7t [place] [address] Care Team Providers Care Administration Assistant Name Role Phone Evy Christopher Primary Care Provider [phone] Reason for Visit * Reason Comments Care Coordination [facility] telephone call outreach Encounter Details Date Type Department Care Team (Latest Contact Info) Description 12/24/2024 Patient Outreach [facility] [address] [place], [place] [phone] Evy Christopher ANP [address] [place] [address] Care Coordination (C3 ROBERT Brannon telephone call outreach) Social History Tobacco Use Types Packs/Day Years [...] as of this encounter Progress Notes * Aleja Brannon - 12/24/2024 8:36 AM EST CHW Aleja Brannon placed outbound call to patient. No answer at this time. LVM introducing herself from [facility] CM Department, reminding patient of initial assessment appt via telephone on 12/25/24 @ 10:30AM with Adult Complex Care program services. Requested call back to , as well as for any additional questions or concerns. documented in this encounter Plan of Treatment Upcoming Encounters Date Type Department Care Team (Late st Contact Info) Description 02/09/2025 2:00 PM EDT Office Visit [facility] [address] [place], [place] [phone] Evy Christopher ANP [address] [place] [address] documented as of this encounter Visit Diagnoses Not on filedocumented in this encounter Additional Health Concerns Assessment Noted Time PHQ-9 Depression Total Score: 2 05/23/20 24 9:49 AM EDT documented as of this encounter Care Teams Administration Assistant Relationship Specialty Start Date End Date Evy Christopher ANP [address] [place] [address] PCP - General Family Medicine 06/20/21 documented as of this encounter
--- OUTSIDE RECORDS SUMMARY | 2025-01-10 08:33 | XMS_ITS | Patient Health Record ---
Author Organization [facility] Address [address] [place] [address] Care Team Providers Care Tension Machine Operator Name Role Phone [facility] N[facility] Primary Care Provider Jada e Giovany Garrison Jr Unavailable [phone] Reason For Referral Referring Provider First Name TREVOR Referring Provider Last Name ADAM Lawler Referred Organization [facility] Referred Provider Giovany Garrison Jr Referred Address [address] [facility] [address],[place], [place],[address], Referred Provider Specialty Gastroentero logy General Notes Phyllis Zhao 024 03:55:36 PM EDT > [facility] for [facility] with Dr. Garrison on [phone] dx abd pain Referral Priority Routine Encounters Encounter Location Date Provider Diagnosis [facility] [address] [place] [address] 08/25/2024 Giovany Garrison Jr Plan Of Treatment No Information Insurance Providers Payer Name Payer Address Payer Phone Subscriber Number Group Number Insured Name Patient Relationship to Insured Coverage Start Date Coverage End Date MEDICA[facility] [address] [facility] [place] [id number] JOSEPH COLIN Self - patient is the insured
--- OUTSIDE RECORDS SUMMARY | 2025-01-10 08:33 | XMS_ITS | Encounter Summary ---
Author Organization [employer] Address [address] [facility] [address] 7t [place] [address] Care Team Providers Care Art Objects Supervisor Name Role Phone Evy Christopher Primary Care Provider [phone] Romeo Echavarria RN Unavailable [phone] Reason for Visit * Reason Comments Med Refill Encounter Details Date Type Department Care Team ([facility] st Contact Info) Description 12/31/2024 Refill [facility] [address] [place], [place] [phone] Evy Christopher ANP [address] [place] [address] Social History Tobacco Use Types Packs/Day Years [...] AM EDT documented as of this encounter Plan of Treatment Upcoming Encounters Date Type Department Care Team (Late st Contact Info) Description 02/09/2025 2:00 PM EDT Office Visit [facility] [address] [place] [address] Evy Christopher ANP [address] [place] [address] documented as of this encounter Visit Diagnoses Not on filedocumented in this encounter Additional Health Concerns Assessment Noted Time PHQ-9 Depression Total Score: 2 05/23/20 24 9:49 AM EDT documented as of this encounter Care Teams Art Objects Supervisor Relationship Specialty Start Date End Date Evy Christopher ANP [address] [place] [address] PCP - General Family Medicine 06/20/21 Romeo Echavarria, SUKHWINDER [address] [place] [address] Precision GrinderFurniture Finisher Apprentice 12/25/24 documented as of this encounter
--- OUTSIDE RECORDS SUMMARY | 2025-01-10 08:33 | XMS_ITS | Encounter Summary ---
Author Organization [employer] Address [address] 7[address] [place] [address] Care Team Providers Care Tribal Council Member Name Role Phone Evy Christopher Primary Care Provider [phone] Romeo Echavarria RN Unavailable [phone] Reason for Visit * Reason Onset Date Comments Care Management 12/25/2024 C3CM- Initial as sessment/enrollment Encounter Details Date Type Department Care Team (Late st Contact Info) Description 12/25/2024 Telephone [facility] [address] [place], [place] [phone] Evy Christopher ANP [address] [place], [place] [phone] Care Management (C3- Initial assessment/enrollment) Social History Tobacco Use Types Packs/Day Years [...] Telephone Encounter - Romeo Echavarria RN - 12/25/2024 11:52 AM EST MARCY Echavarria RN, provided notification to PCP JORGE A Bernal of patient's enrollment into C3 Complex Care Program. MARCY Echavarria RN, completed care plan and sent to HIM to be scanned into the medical record. PCPnotified and awaiting review from provider. * Telephone Encounter - Romeo Echavarria RN - 12/25/2024 11:50 AM EST MARCY Echavarria RN placed outbound call to patient for agreed upon time for initial assessment forenrollment into Adult Care Management Program. Patient's name, , and address were verified. Afua Hector is a 44 year old Argentine speaking female with PMH of prediabetes, mild persistent asthma without complication, hyperlipidemia, headache, chronic abdominal pain, anxiety, sciatica, YANI, chronic pain syndrome, chronic bilateral low back pain, chronic joint pain, polyarthralgia, anxiety with depression, class 1 obesity, hemorrhoids, osteoarthritis of both knees, transaminitis, incisional hernia, allergic rhinitis, elevated blood pressure without diagnosis of hypertension. Pt states that she can read and write in Argentine. Pt reports that last grade she completed was 8th grade. Pt reports being followed by [facility], [facility] cardiology, [facility] vision, pain management, orthopedic, dental and plumber apprentice. Pt reports that she has a plumber apprentice appointment tomorrow in [place]. Pt reports being interested in weight loss injection and will discuss further with PCP at upcoming appointment on02/09/25. Patient reports that she has an appointment for nerve test of her hand on 12/28/24. Patient denies any hearing or dental concerns. Pt denies any visual concerns, waiting for glasses to arrive.Pt denies any recent ED visits or hospitalization. Pt reports living in an apartment with her (not currently ). Pt reports utilities are up to date. Pt states that sometimes she is short on her food due to the increasing prices on food produce. 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 Pt reports having transportation to medical appointments. Pt reportshaving the following DME: nebulizer, CPAP, BP monitoring kit, glucometer and supplies, and a walker. Pt reports that she barely uses the walker only when her leg pain is bad. Pt denies being on a special diet. Pt denies taking any vitamins or supplements. Pt state that she sometimes exercise. Pt reports being concerned with her weight. Pt reports chronic pain of her back, hip, hand and knee. Pt ta kes ibuprofen 800 mg. Pt state before was receiving injections for her pain but were not helping. Pt currently does not follow a therapist/counselor or psychiatrist. CM offered, pt declined. Pt statesometimes she feels stressed due to her chronic pain. Pt state every now and then feels anxious or depressed. Pt reports feeling tired and lazy almost every day. Pt denies any loss of appetite. Pt reports difficulty concentrating and feels bad about herself due to her pain. Pt state listening to music helps. Pt reports feeling safe at her home. Pt denies drinking alcohol, smoking cigarettes or using illegal drugs. Pt reports difficulty in dressing and bathing and since her is not working currently, he helps her with ADL's as needed. Pt state she is interested in receiving DEGREE CLERK services. Pt denies having VNA. Pt state her Ihsan is her HCP. Pt reports compliance to her meds butdoes not recall the name of them. Pt state her PCP prescribes her a medication for her anxiety. Pt denies any side effect to her medications or any other concerns. CM will assist pt in setting her upfor a DEGREE CLERK evaluation, food resources, appt scheduling/reminder, and disease process. Care management program explained and contact information given. Patient verbalizes understanding, and able to repeat back to comic book writer. A follow up call will be placed within 10 days, patient agrees with plan. documented in this encounter Plan of Treatment Upcoming Encounters Date Type Department Care Team ([facility] st Contact Info) Description 02/09/2025 2:00 PM EDT Office Visit [facility] [address] [place] [address] Evy Christopher ANP [address] [place] [address] documented as of this encounter Visit Diagnoses Not on filedocumented in this encounter Additional Health Concerns Assessment Noted Time PHQ-9 Depression Total Score: 2 05/23/20 24 9:49 AM EDT documented as of this encounter Care Teams Tribal Council Member Relationship Specialty Start Date End Date Evy Christopher ANP [address] [place] [address] PCP - General Family Medicine 06/20/21 Romeo Echavarria, SUKHWINDER [address] [place] [address] Valve FitterTrust Manager 12/25/24 documented as of this encounter
--- OUTSIDE RECORDS SUMMARY | 2025-01-10 08:33 | XMS_ITS | Encounter Summary ---
Author Organization [employer] Address [address] [facility] 7t [place] [address] Care Team Providers Care Regional Liaison Name Role Phone Ashwin Evy JULES Primary Care Provider [phone] Romeo Echavarria RN Unavailable [phone] Reason for Referral * Consultation (Routine) - Closed Specialty Diagnoses / Procedures Referred By Contdaniel t Referred To Contact Orthopaedic Surgery Diagnoses Strain of left rotator cuff capsule, sequela Beatrice Cabrales MD [address] [place] [address] Phone: tel: fax: [facility] [address] [place] [address] [place] [address] Phone: tel: fax: Referral ID Status Reason Start Date Expiration Date V isits Requested Visits Authorized [id number] Closed Specialty Services Required 12/30/2024 12/30/2025 6 6 * Consultation (Routine) - Closed Specialty Diagnoses / Procedures Referred By Contac t Referred To Contact Physical Therapy Diagnoses Strain of left rotator cuff capsule, sequela Bilateral sciatica Beatrice Cabrales MD [address] [place] [address] Phone: tel: fax: [facility] [place] [address] Phone: tel: fax: Referral ID Status Reason Start Date Expiration Date V isits Requested Visits Authorized [id number] Closed Specialty Services Required 12/30/2024 12/30/2025 20 20 Reason for Visit * Reason Comments left shoulder pain Encounter Details Date Type Department Care Team (Late st Contact Info) Description 12/30/2024 2:00 PM EST Office Visit [facility] [address] [place] [address] Beatrice Cabrales MD [address] [place] [address] Strain of left rotator cuff capsule, sequela (Primary Dx); Bilateral sciatica Social History Tobacco Use Types Packs/Day Years [...] AM EDT documented as of this encounter Last Filed Vital Signs Vital Sign Reading Time Taken Comments Blood Pressure 122/82 12/30/2024 2:22 PM EST Pulse 74 12/30/2024 2:13 PM EST Temperature 37.2 ??C (98.9 ??F) 12/30/2024 2:13 PM ES T Respiratory Rate 20 12/30/2024 2:13 PM EST Oxygen Saturation 98% 12/30/2024 2:13 PM EST Inhaled Oxygen Concentration - - Weight 85.5 kg (188 lb 9.6 oz) 12/30/2024 2:13 P M EST Height - - Body Mass Index 33.41 09/09/2024 9:29 AM EST documented in this encounter Progress Notes * Janine Fox - 12/30/2024 2:00 PM EST Subjective Patient ID: Afua Hector is a 44 y.o. adult with past medical history of chronic abdominal pain, obstructive sleep apnea, asthma, hx of septic arthritis in back, prediabetic, chronic low back pain, hyperlipidemia, transaminitis and anxiety/depression who presents to walk in clinic for left shoulderpain. Seen in ED 12/07/24 for left shoulder pain and weakness. CXR 12/07/24 FINDINGS: There is mild rotation to the right. The cardiac size is top normal. No mediastinal or hilar mass. The vasculature, lungs and visualized pleural margins are within normal limits. No focal bony lesions. No suspicious abnormality in the visualized upper abdomen. Lab work showed your magnesium was slightly low which we repleted. Otherwise labs not concerning, EKG normal. Physical exam reassuring and vital signs looked good. Suspect muscle strain of the trapezius, cervical radiculopathy was less likely as she does not have any midline neck pain, or neurodeficits. Will treat with Robaxin, and discharged with will discharge with Robaxin, naproxen, warm compresses, close PCP follow-up and strict return precaution. Pt reports she has had worsened pain to her left back, neck and radiating down her arm, specifically the past week. Limited ROM to left shoulder. No trauma or injury. Review of Systems Constitutional: Negative for fever and unexpected weight change. Respiratory: Negative for shortness of breath. Cardiovascular: Negative for chest pain. Gastrointestinal: Negative for abdominal pain. Genitourinary: Negative for difficulty urinating. Musculoskeletal: Positive for arthralgias. Objective Visit Vitals BP 122/82 Pulse 74 Temp 98.9 ??F (37.2 ??C) (Oral) Resp 20 Body mass index is 33.41 kg/m??. Physical Exam Constitutional: Appearance: Normal appearance. Cardiovascular: Rate and Rhythm: Normal rate and regular rhythm. Heart sounds: Normal heart sounds. Pulmonary: Effort: Pulmonary effort is normal. Breath sounds: Normal breath sounds. Musculoskeletal: Left shoulder: Tenderness (muscle tenderness in trapezius) present. Decreased range of motion. Cervical back: Normal range of motion. Tenderness (left paraspinal muscle) present. Neurological: General: No focal deficit present. Mental Status: She is alert. Psychiatric: Behavior: Behavior normal. Problem List Items Addressed This Visit Strain of left rotator cuff capsule - Primary Pain, muscle spasm and limited ROM in left shoulder and trapezius muscle. -referred to Orthopedics -prescribed high dose ibuprofen and cyclobenzaprine (Flexeril) 10 MG Relevant Medications ibuprofen 800 MG tablet cyclobenzaprine (Flexeril) 10 MG tablet Other Relevant Orders Referral to Physical Therapy Referral to Orthopaedic Surgery Bilateral sciatica Chronic bilateral sciatica. -referred to PT. Relevant Orders Referral to Physical Therapy -No evidence of acute disease process. Suspect rotator cuff strain. Symptoms mild. -Will treat with NSAID's, muscle relaxer and referral to specialist. -ER precautions discussed. -Seek medical attention for worsening symptoms. IJanine, am serving as a scribe to document services personally performed by Dr. Daley, based on the patient's response to questions by provider and providers statements to me. documented in this encounter Miscellaneous Notes * Assessment & Plan Note - Janine Fox - 12/30/2024 2:22 PM ESTAssociated Problem(s): Bilateral sciatica Chronic bilateral sciatica. -referred to PT. * Assessment & Plan Note - Janine Fox - 12/30/2024 2:22 PM ESTAssociated Problem(s): Strain of left rotator cuff capsule Pain, muscle spasm and limited ROM in left shoulder and trapezius muscle. -referred to Orthopedics -prescribed high dose ibuprofen and cyclobenzaprine (Flexeril) 10 MG documented in this encounter Plan of Treatment Upcoming Encounters Date Type Department Care Team (Late st Contact Info) Description 02/09/2025 2:00 PM EDT Office Visit [facility] [address] [place] [address] Evy Christopher ANP [address] [place] [address] Scheduled Referrals Name Type Priority Associated Diagnoses Order Schedule Referral to Physical Therapy Outpatient Referral Routine Strain of left rotator cuff capsule, sequela Bilateral sciatica Expected: 12/30/2024 (Approximate), Expires: 12/30/2025 Referral to Orthopaedic Surgery Outpatient Referral Routine Strain of left rotator cuff capsule, sequela Expected: 12/30/2024 (Approximate), Expires: 12/30/2025 documented as of this encounter Visit Diagnoses Diagnosis Strain of left rotator cuff capsule, sequela- Primary Bilateral sciatica Sciatica documented in this encounter Additional Health Concerns Assessment Noted Time PHQ-9 Depression Total Score: 2 05/23/20 24 9:49 AM EDT documented as of this encounter Care Teams Regional Liaison Relationship Specialty Start Date End Date Evy Christopher ANP [address] [place] [address] PCP - General Family Medicine 06/20/21 Romeo Echavarria, SUKHWINDER [address] [place] [address] Operating Room ManagerCt Technician 12/25/24 documented as of this encounter
--- OUTSIDE RECORDS SUMMARY | 2025-01-10 08:34 | XMS_ITS | Encounter Summary ---
Author Organization [email or web address] Address [address] [facility] 7t [place] [address] Care Team Providers Care Photovoltaic Installation Technician Name Role Phone Evy Christopher ANP Primary Care Provider [phone] Romeo Echavarria RN Unavailable [phone] Reason for Visit * Reason Onset Date Comments Returning Call 03/14/2024 Encounter Details Date Type Department Care Team ([facility] Contact Info) Description 03/14/2024 Telephone [facility] [address] [place], [place] [phone] Evy Christopher ANP [address] [place] [address] Returning Call Social History Tobacco Use Types Packs/Day Years Used Date Smoking Tobacco: Never Passive Smoke Exposure: Never Smokeless Tobacco: Never Alcohol Use Standard Drinks/Week Comments Never 0 (1 standard drink = 0.6 oz pur e alcohol) Depression Answer Date Recorded Patient Health Questionnaire-9 Score 13 09/11/2023 Patient Health Questionnaire-9 Score 13 09/11/2023 Last PHQ-9: Questionnaire Data Not on file 1 11/11/2022 Housing Stability Answer Date Recorded What is your housing situation today? I have maureen herndon 09/11/[address] you li ve. Do you have problems with any of the following? None of the above 09/11/2023 Food Insecurity Answer Date Recorded Within the past 12 months, y ou worried that your food would run out before you got money to buy more: Never True 09/11/2023 Within the past 12 months,th e food you bought just didn't last and you didn't have enough money to get more: Never True Transportation Answer Date Recorded In the past [...] Answer Date Recorded Patient Health Questionnaire-2 Score 2 09/11/2023 Comments Unknown Sex and Gender Information Value Date Recorded Sex Assigned at Female 08/28/2022 10:14 AM EDT Legal Sex Female 10:14 AM EDT Gender Identity Choose not to disclose 10:14 AM EDT Sexual Orientation Straight 08/28/2022 10 :14 AM EDT documented as of this encounter Miscellaneous Notes * Telephone Encounter - Tony Frias - 03/14/2024 11:43 AM EDT Tc from pt stating received a call but technical publications writer sees nothing tasked. documented in this encounter Plan of Treatment Upcoming Encounters Date Type Department Care Team (Late st Contact Info) Description 02/09/2025 2:00 PM EDT Office Visit [facility] [address] [place] [address] Evy Christopher ANP [address] [place] [address] documented as of this encounter Visit Diagnoses Not on filedocumented in this encounter Additional Health Concerns Assessment Noted Time PHQ-9 Depression Total Score: 13 023 2:43 PM EST documented as of this encounter Care Teams Photovoltaic Installation Technician Relationship Specialty Start Date End Date Evy Christopher ANP [address] [place] [address] PCP - General Family Medicine 06/20/21 Romeo Echavarria, RN [address] [place] [address] Foreign Law ConsultantMarker Machine Attendant 12/25/24 documented as of this encounter
--- OUTSIDE RECORDS SUMMARY | 2025-01-10 08:34 | XMS_ITS | Encounter Summary ---
Author Organization [employer] Address [address] [facility] [address] 7t [place] [address] Care Team Providers Care Dowel Inserting Machine Operator Name Role Phone Evy Christopher Primary Care Provider [phone] Romeo Echavarria RN Unavailable [phone] Reason for Visit * Reason Comments Med Refill Encounter Details Date Type Department Care Team ([facility] Contact Info) Description 10/26/2024 Refill [facility] [address] [place], [place] [phone] Evy Christopher ANP [address] [place] [address] Social History Tobacco Use Types Packs/Day Years [...] got money to buy more: Never True 05/23/2024 Within the past 12 months,th e food [...] Access Answer Date Recorded Internet Access Q1 No 06/30/2024 Internet Access Q2 I do not want or need it 11/2023 Comments Unknown Sex and Gender Information Value [...] Description 02/09/2025 2:00 PM EDT Office Visit [facility] [address] [place] [address] Evy Christopher ANP [address] [place] [address] documented as of this encounter Visit Diagnoses Not on filedocumented in this encounter Additional Health Concerns Assessment Noted Time PHQ-9 Depression Total Score: 2 05/23/20 24 9:49 AM EDT documented as of this encounter Care Teams Dowel Inserting Machine Operator Relationship Specialty Start Date End Date Evy Christopher ANP [address] [place] [address] PCP - General Family Medicine 06/20/21 Romeo Echavarria, SUKHWINDER [address] [place] [address] Armor Senior SergeantGas Pumping Station Supervisor 12/25/24 documented as of this encounter
--- OUTSIDE RECORDS SUMMARY | 2025-01-10 08:34 | XMS_ITS | Encounter Summary ---
Author Organization [employer] Address [address] [facility] 7t [place] [address] Care Team Providers Care Time Study Analyst Name Role Phone Evy Christopher Primary Care Provider [phone] Romeo Echavarria RN Unavailable [phone] Encounter Details Date Type Department Care Team ([facility] Contact Info) Description 12/04/2022 Telephone [facility] MEDICINE [address] [place] [address] [phone] Evy Christopher ANP [address] [place] [address] [phone] Social History Tobacco Use Types Packs/Day Years Used Date Smoking Tobacco: Never Passive Smoke Exposure: Never Smokeless Tobacco: Never Alcohol Use Standard Drinks/Week Comments Never 0 (1 standard drink = 0.6 oz pur e alcohol) Comments Unknown Sex and Gender Information Value Date Recorded Sex Assigned at Female 08/28/2022 10:14 AM EDT Legal Sex Female 10:14 AM EDT Gender Identity Choose not to disclose 10:14 AM EDT Sexual Orientation Straight 08/28/2022 10 :14 AM EDT COVID-19 Exposure Response Date Recorded In the last 10 days, have yo u been in contact with someone who was confirmed or suspected to have Coronavirus/COVID-19? No / Unsure 11/22/2022 8:57 AM EST documented as of this encounter Plan of Treatment Upcoming Encounters Date Type Department Care Team ([facility] Contact Info) Description 02/09/2025 2:00 PM EDT Office Visit [facility] MEDICINE [address] [place] [address] [phone] Evy Christopher ANP [address] [place] [phone] documented as of this encounter Visit Diagnoses Not on filedocumented in this encounter Care Teams Time Study Analyst Relationship Specialty Start Date End Date Evy Christopher ANP [address] [place] [address] PCP - General Family Medicine 06/20/21 Romeo Echavarria, SUKHWINDER [address] [place] [address] Catheter BuilderResin Coater 12/25/24 documented as of this encounter
--- OUTSIDE RECORDS SUMMARY | 2025-01-10 08:34 | XMS_ITS | Encounter Summary ---
Author Organization [employer] Address [address] [facility] [address] 7t [place] [address] Care Team Providers Care Fertilizer Supervisor Name Role Phone Evy Christopher Primary Care Provider Romeo Echavarria RN Unavailable [phone] Reason for Visit * Reason Onset Date Comments Call Back Request 04/23/2024 Encounter Details Date Type Department Care Team ([facility] st Contact Info) Description 04/23/2024 Telephone [facility] MEDICINE [address] [place], [place] [phone] Evy Christopher ANP [address] [place], [place] [phone] Call Back Request Social History Tobacco Use Types Packs/Day Years [...] got money to buy more: Sometimes True 2023 Within the past 12 months,th e food you bought just didn't last and you didn't have enough money to get more: Sometimes True 03/31/2024 Transportation Answer Date Recorded In the past [...] encounter Miscellaneous Notes * Telephone Encounter - Anton Madrigal - 04/23/2024 3:15 PM EDT Tc from patient calling to request the status of the help for bills as well as food states has lefta message and was awaiting a call documented in this encounter Plan of Treatment Upcoming Encounters Date Type Department Care Team (Late st Contact Info) Description 02/09/2025 2:00 PM EDT Office Visit [facility] MEDICINE [address] [place] [phone] Evy Christopher ANP [address] [place] [address] documented as of this encounter Visit Diagnoses Not on filedocumented in this encounter Additional Health Concerns Assessment Noted Time PHQ-9 Depression Total Score: 13 023 2:43 PM EST documented as of this encounter Care Teams Fertilizer Supervisor Relationship Specialty Start Date End Date Evy Christopher ANP [address] [place] [address] PCP - General Family Medicine 06/20/21 Romeo Echavarira, SUKHWINDER [address] [place] [address] Store Receiving SpecialistOccupational Therapy Aide 12/25/24 documented as of this encounter
--- OUTSIDE RECORDS SUMMARY | 2025-01-10 08:34 | XMS_ITS | Continuity of Care Document ---
Author Organization [facility] Address [address] [place] [address] [address] [place] [address]- Care Team Providers Care Plastic Tile Layer Name Role Phone Ashwin HUTSON, Evy Perez Primary Care Physician [phone] Encounter [facility] Date(s): 12/05/24 - 01/04/[address] [place], [place] [address] Attending Physician: Donna Lane Admitting Physician: AdmtrDonna Referring Physician: Admtr ArSita Encounter Type: Triage Allergies, Adverse Reactions, Alerts No Known Allergies Immunizations Given and Recorded Vaccine Date Status Refusal Reason SARS-CoV-2 mRNA ([id number]) vax 11/27/21 Recorded SARS-CoV-2 (COVID-19) mRNA BNT-162b2 vac 03/23/21 Recorded SARS-CoV-2 (COVID-19) mRNA BNT-162b2 vac 03/02/21 Recorded influenza virus vaccine, inactivated 1 09/29/10 Gi haris 1Admin Note: per pt Medications Dexilant 60 mg oral delayed release capsule 1 capsule = 60 mg, By Mouth, Daily, # 90 capsule, 3 Refills, Maintenance, 10/27/24 8:38:00 AM EST, CR Capsule, [facility] #[id number], Partial fill upon patient request if the [...] 0 Refills, Maintenance, 09/05/24 11:50:00 AM EST, [id number], 160, cm, 09/01/24 9:42:00 EST, Height, 81.9, [...] 0 Refills, Maintenance, 02/26/24 1:51:00 PM EDT, [id number], Partial fill upon patient request if the [...] 2 Refills, Maintenance, 10/27/24 8:42:00 AM EST, [facility] #[id number], Partial fill upon patient request if the [...] Refills, Maintenance, 07/14/24 3:00:00 PM EDT, Tablet, [facility] #[id number], Partial fill upon patient request if the [...] Team Personnel Name: Liliam Downing RN Position: [facility] AMB Nurse Member Role: Primary Care Nurse Name: Bakari Kruse [place] Position: [facility] Outreach Member Role: Lifetime Consulting Physician Name: Patricia Feng RN Position: [facility] Onco RN Member Role: Primary Care Nurse Name: Shelly Anton RN Position: [facility] RN Member Role: Primary Care Nurse Name: Evy Christopher NP Position: [facility] Outreach Member Role: PCP Address: [address] [place] [address] Telecom: Name: Albertina Luna RN Position: [facility] RN Member Role: Primary Care Nurse Care Team Related Persons Name: GABRIELLA SMOOTH Insurance Providers Guarantor name: JSOEPH COLIN [id number] Plan Information #: 1 Payer: [employer] Member Number: NA Policy Number: NA Group Number: [id number]
--- OUTSIDE RECORDS SUMMARY | 2025-01-10 08:35 | XMS_ITS | Encounter Summary ---
Author Organization [employer] Address [address] [facility] 7t [place] [address] Care Team Providers Care Naphthalene Operator Name Role Phone Evy Christopher JORGE A Primary Care Provider [phone] Romeo Echavarria RN Unavailable Encounter Details Date Type Department Care Team (Late st Contact Info) Description 09/11/2024 Orders Only [facility] [address] [place] [address] Provider, MD Pearl Social History Tobacco Use Types Packs/Day Years [...] Description 02/09/2025 2:00 PM EDT Office Visit [facility] MEDICINE [address] [place] [address] Evy Christopher ANP [address] [place] [address] documented as of this encounter Procedures Procedure Name Priority Date/Time Associated Diagnosis Comments CT ABD AND PELVIS Routine 09/10/2024 2:27 PM EST documented in this encounter Results * CT ABD AND PELVIS (09/10/2024 2:27 PM EST) Anatomical Region Laterality Modality Body, Pelvis, Abdomen Computed T omography us Historical Provider MD ESPINOZA CT PROCEDURES Final R esult documented in this encounter Visit Diagnoses Not on filedocumented in this encounter Additional Health Concerns Assessment Noted Time PHQ-9 Depression Total Score: 2 05/23/20 24 9:49 AM EDT documented as of this encounter Care Teams Naphthalene Operator Relationship Specialty Start Date End Date Evy Christopher ANP [address] [place] [phone] PCP - General Family Medicine 06/20/21 Romeo Echavarria, SUKHWINDER [address] [place] [address] Front Line SupervisorChief Clerk 12/25/24 documented as of this encounter
--- OUTSIDE RECORDS SUMMARY | 2025-01-10 08:35 | XMS_ITS | Encounter Summary ---
Author Organization [employer] Address [address] [facility] [address] 7[address] [place] [address] Care Team Providers Care Draft Roller Picker Name Role Phone Evy Christopher Primary Care Provider [phone] Romeo Echavarria RN Unavailable [phone] Reason for Visit * Reason Onset Date Comments Durable Medical Equipment 07/02/2024 Encounter Details Date Type Department Care Team (Late st Contact Info) Description 07/02/2024 Telephone [facility] MEDICINE [address] [place], [place] [phone] Evy Christopher ANP [address] [place], [place] [phone] Durable Medical Equipment Social History Tobacco Use Types Packs/Day Years [...] encounter Miscellaneous Notes * Telephone Encounter - Jarvis Winston RN - 07/29/2024 4:02 PM EDT TC placed to [facility] spoke to Hal who reports that they have the order for the patient and theyare working on it. States that they will give her a call to set up service once its been processed.Hal states they do not need any additional info and it looks like they received chart notes etcand if anything else is needed the shipping track supervisor will reach out to us. Please call patient and inform that isaiah is working on processing the order. We have sent everything to them they are working on it. If she has any questions she can call them at [phone]. * Telephone Encounter - Tony Frias - 07/02/2024 3:53 PM EDT Tc from pt requesting status on CPAP machine. Please contact pt at [phone]. (Polish Speaker) documented in this encounter Plan of Treatment Upcoming Encounters Date Type Department Care Team (Late st Contact Info) Description 02/09/2025 2:00 PM EDT Office Visit [facility] MEDICINE [address] [place] [address] Evy Christopher ANP [address] [place] [address] documented as of this encounter Visit Diagnoses Not on filedocumented in this encounter Additional Health Concerns Assessment Noted Time PHQ-9 Depression Total Score: 2 05/23/20 24 9:49 AM EDT documented as of this encounter Care Teams Draft Roller Picker Relationship Specialty Start Date End Date Evy Christopher ANP [address] [place] [address] PCP - General Family Medicine 06/20/21 Romeo Echavarria, SUKHWINDER [address] [place] [address] Bread Oven OperatorCost Estimator 12/25/24 documented as of this encounter
--- OUTSIDE RECORDS SUMMARY | 2025-01-10 08:35 | XMS_ITS | Encounter Summary ---
Author Organization [employer] Address [address] [facility] [address] 7t [place] [address] Care Team Providers Care Screw Eye Assembler Name Role Phone Evy Christopher Primary Care Provider [phone] Romeo Echavarria RN Unavailable [phone] Reason for Visit * Reason Onset Date Comments Medication Question 09/26/2023 Encounter Details Date Type Department Care Team ([facility] Contact Info) Description 09/26/2023 Telephone [facility] MEDICINE [address] [place], [place] [phone] Evy Christopher ANP [address] [place] [address] Medication Question Social History Tobacco Use Types [...] encounter Miscellaneous Notes * Telephone Encounter - Neo Lira - 09/26/2023 12:00 PM EST Tc from patient requesting a call from a nurse in regards to a medication request for Nerves relaxer. Pt states she needs to have a Root Canal done but cannot due to her being too nervous. Please contact pt at [phone] Canadian Speaker documented in this encounter Plan of Treatment Upcoming Encounters Date Type Department Care Team (Late st Contact Info) Description 02/09/2025 2:00 PM EDT Office Visit [facility] MEDICINE [address] [place] [address] Evy Christopher ANP [address] [place] [address] documented as of this encounter Visit Diagnoses Not on filedocumented in this encounter Additional Health Concerns Assessment Noted Time PHQ-9 Depression Total Score: 13 023 2:43 PM EST documented as of this encounter Care Teams Screw Eye Assembler Relationship Specialty Start Date End Date Evy Christopher ANP [address] [place] [address] PCP - General Family Medicine 06/20/21 Romeo EchavarriaSUKHWINDER [address] [place] [address] [place] [id number] [employer] CrewmemberFire Alarm Mechanic 12/25/24 documented as of this encounter
--- OUTSIDE RECORDS SUMMARY | 2025-01-10 08:35 | XMS_ITS | Encounter Summary ---
Author Organization [employer] Address [address] [facility] 7t [place] [address] Care Team Providers Care Signal Fitter Name Role Phone Evy Christopher ANP Primary Care Provider [phone] Romeo Echavarria RN Unavailable [phone] Reason for Visit * Reason Onset Date Comments FYI 06/29/2023 Encounter Details Date Type Department Care Team ([facility] st Contact Info) Description 06/29/2023 Telephone [facility] MEDICINE [address] [place], [place] [phone] Evy Christopher ANP [address] [place] [address] FYI Social History Tobacco Use Types Packs/Day Years [...] encounter Miscellaneous Notes * Telephone Encounter - Abbey Rich - 06/29/2023 2:50 PM EDT Tre Mendoza at [facility] calling to inform PCP of halfway plan of care stoppedbut patient will continue with PT for 2 visit in the week. documented in this encounter Plan of Treatment Upcoming Encounters Date Type Department Care Team (Late st Contact Info) Description 02/09/2025 2:00 PM EDT Office Visit [facility] MEDICINE [address] [place] [address] Evy Christopher ANP [address] [place] [address] documented as of this encounter Visit Diagnoses Not on filedocumented in this encounter Care Teams Signal Fitter Relationship Specialty Start Date End Date Evy Christopher ANP [address] [place] [address] PCP - General Family Medicine 06/20/21 Romeo Echavarria, SUKHWINDER [address] [place] [address] Residential TherapistIn Tube Conversion Technician 12/25/24 documented as of this encounter
--- OUTSIDE RECORDS SUMMARY | 2025-01-10 08:35 | XMS_ITS | Clinical Summary ---
Author Organization [facility] Address [address] [place] [address] Phone Care Team Providers Care Paralegal Supervisor Name Role Phone Evy Christopher NP Primary Care Provider [phone] Allergies Active Allergy Reactions Criticality Noted Date Comments Grass Pollen-Red Top, Standard 05/09/2024 Other Reaction(s): Unknown Medications ALBUTEROL INHL Inhale into the lungs. Active FREESTYLE LANCETS MISC USE DIRECTED TO CHECK BLOOD SUGAR EVERY MORNING OR WHEN SYMPTOMATIC 1 Active albuterol sulfate (ProAir RespiClick) 90 mcg/actuation aerosol powdr breath activated Inhale into the lungs. As directed Active cholecalcifero l (VITAMIN D-3) 50 mcg (2,000 unit) capsule Take 1 tablet.old by mouth daily. 3 Active fluconazole (DIFLUCAN) 150 mg tablet Take 1 Tablet by mouth every 72 hours. 3 Active hydrOXYzine HCL (ATARAX) 10 mg tablet TAKE 1 TO 2 TABLETS BY MOUTH EVERY 6 HOURS NEEDED FOR ANXIETY 1 Active levonorgestrel -ethinyl estradiol (AVIANE,ALESSE ) 0.1-20 mg-mcg per tablet Take 1 tablet by mouth daily for 360 days. 1 Active naproxen (NAPROSYN) 500 mg tablet Take 1 Tab by mouth every 12 hours as needed for Pain for up to 360 days. 0 Active omeprazole (PRILOSEC) 20 mg tablet,delayed release (DR/EC) Take by mouth. Activ e rosuvastatin (CRESTOR) 40 mg tablet Take 40 mg by mouth daily. 1 at bedtime Active acetaminophen (TYLENOL) 500 mg tablet TAKE 1 TABLET BY MOUTH 4 TIMES A DAYS NEEDED FOR PAIN. Active BD Alcohol Swabs pads, medicated USE TO CHECK BLOOD SUGAR EVERY MORNING DIRECTED. 4 Active ALPRAZolam (XANAX) 0.5 mg tablet 4 Active bisacodyL (DULCOLAX) 5 mg EC tablet TAKE 4 TABLETS BY MOUTH 1 TIME 4 Active blood sugar diagnostic (FreeStyle Lite Strips) test strip USE TO CHECK FASTING SUGAR IN THE MORNING OR NEEDED FOR SYMPTOMS 4 Active cetirizine (ZyrTEC) 10 mg tablet Take 1 tablet (10 mg total) by mouth daily. 4 025 Active diphenhydrAMIN E (BENADRYL) 25 mg capsule Take 1 capsule (25 mg total) by mouth every 6 (six) hours if needed for allergies. 4 Active DULoxetine (CYMBALTA) [address] capsule 4 Active EPINEPHrine (EPIPEN) 0.3 mg/0.3 mL injection Inject 0.3 mL (0.3 mg total) as directed. 4 Active esomeprazole (NexIUM) [address] capsule Take 1 capsule (40 mg total) by mouth 2 times daily. 4 Active FLUoxetine (PROzac) 20 mg capsule Take 1 capsule (20 mg total) by mouth daily. 4 Active gabapentin (NEURONTIN) 300 mg capsule TAKE 1 CAPSULE BY MOUTH THREE TIMES DAILY FOR 7 DAYS NEEDED FOR MODERATE PAIN 4 Active ibuprofen (ADVIL,MOTRIN) 600 mg tablet TAKE 1 TABLET BY MOUTH FOUR TIMES DAILY FOR 10 DAYS NEEDED FOR PAIN 4 Active LORazepam (ATIVAN) 1 mg tablet TAKE 1 TABLET BY MOUTH 1 HOUR BEFORE PROCEDURE 4 Active melatonin 3 mg tablet Take 1 tablet (3 mg total) by mouth at bedtime as needed for sleep. 4 Active methylPREDNISo lone (MEDROL DOSPAK) 4 mg tablet See administration instructions. 4 Active GaviLyte-G 236-22.74-6.74 -5.86 gram solution MIX AND DRINK EVERY 10 MINS DIRECTED 4 Active sertraline (ZOLOFT) 50 mg tablet 4 Active polyethylene glycol-electro lytes (NULYTELY) 420 gram solution 4 Active SUMAtriptan (IMITREX) 50 mg tablet Take 1 tablet (50 mg total) by mouth. 3 Active methocarbamoL (ROBAXIN) 750 mg tablet Take 1 tablet (750 mg total) by mouth 4 (four) times a day for 5 days. 20 each 5 Active pantoprazole (PROTONIX) 20 mg EC tablet Take 1 tablet (20 mg total) by mouth 1 (one) time each day before breakfast. Do not crush, chew, or split. 30 each 11 5 026 Active Active Problems Problem Noted Date Diagnosed Date Acid reflux 09/29/2024 Gastritis 09/29/2024 Asthma 09/29/2024 Benign lipomatous neoplasm 09/29/2024 Nausea 09/29/2024 Pain in right thigh 09/29/2024 Polyp of gallbladder 09/29/2024 Straining with stools 09/29/2024 Class 1 obesity 06/23/2024 Hemorrhoids, internal 06/23/2024 Incisional hernia 06/23/2024 Postoperative pain 06/23/2024 Transaminitis 06/23/2024 Myofascial pain 04/17/2024 Overview (08/22/2024): Last Assessment & Plan: I explained to Afua that I believe her pain is MSK in nature. Most likely myofascial pain, possibly related to scarring in the area of her abdominoplasty scar. I explained that this could be treated with trigger point injection. I explained that, given her cysts have come and gone over time without change in symptoms, have all looked simple, and most recent imaging shows no evidence of adnexal mass, this pain is not likely Supervisor Waterworks in nature. As such, there is no indication to perform a surgery at this time. In fact, if she does have myofascial pain, this could be another cause for recurrence. I explained that her colonoscopy will be helpful in rule out GI cause, but that ultimately, I think she may be best treated with trigger point injection. She desired to think about it first and call if she wants it. Anxiety with depression 03/03/2024 Osteoarthritis of both knees 03/03/2024 Elevated heart rate with christopher vated blood pressure without diagnosis of hypertension 12/31/2023 YANI (obstructive sleep apnea) 09/11/2023 Overview (09/29/2024): AutoCPAP 8-20cm Is using CPAP. Pt cont to benefit from and require CPAP/APAP/BiPAP therapy. Sciatica without back pain, right 04/23/2023 LLQ pain 03/07/2023 Overview (08/22/2024): Last Assessment & Plan: +Left adnexal tenderness. Ultrasound ordered further evaluation. Urinary tract infection symptoms 03/07/2023 Overview (08/22/2024): Last Assessment & Plan: UA negative, however exam concerning for UTI. Urine culture ordered. Vitamin D deficiency 11/03/2022 H/O: hysterectomy 07/06/2022 Overview (09/29/2024): Retained cervix Pap 09/10/23 Right ovarian cyst 04/17/2021 Overview (08/22/2024): 06/2023 measuring 3.0 x 2.9 x 2.8 cm Periumbilical abdominal pain 05/13/2020 Prediabetes 01/22/2019 Overview (09/29/2024): Lab Results Component Value Date HGBA1C 5.7 09/11/2023 HGBA1C 5.2 07/07/2022 HGBA1C 5.2 02/23/2021 Mild persistent asthma without complication 11/29 Allergic rhinitis 12/03/2015 Anxiety 12/03/2015 Headache 12/03/2015 Hyperlipidemia 12/03/2015 Overview (09/29/2024): Cont rosuvastatin 40mg Mastodynia 09/07/2010 Encounters Date Type Department Care Team Description 01/01/2025 2:30 PM EST Consult Bariatric Surgery - [place] [address] [place] [phone] Mily Cardenas MD Periumbilical abdominal pain (Primary Dx); Gastroesophageal reflux disease, unspecified whether esophagitis present; Hiatal hernia 12/07/2024 8:15 PM EST - 12/07/2024 9:40 PM EST Emergency [facility] Emergency [address] [place] [phone] Acute pain of left shoulder (Primary Dx); Neck pain on left side Discharge Disposition: Home or Self Care 11/27/2024 Telephone Obstetrics and Gynecology [id number] [place] [phone] Tawny Arriaga CNM er visit 10/26/2024 10:39 AM EST - 10/26/2024 4:59 PM [facility] Emergency [address] [place] [phone] Otto Rosen DO Left lower quadrant abdominal pain (Primary Dx); Nausea and vomiting, unspecified vomiting type Discharge Disposition: Home or Self Care from Last 3 Months Immunizations Name Administration Dates Next Due Hepatitis A-Hepatitis B Adul t (Twinrix) 18yo and older 04/19/2016,02/18/2014,01/15/2014 Hepatitis B (Lswaifq-L-Vogkq , Recombivax HB-Adult) 19yo and older 09/27/2021 Hepatitis B Pediatric (Enger ix B; Recombivax HB) to less than 20 yo 06/28/1999,01/03/1999,12/03/1998 Influenza Quadrivalent, 0.5m l, preservative free (Fluarix; FluLaval; Fluzone) ages 6mo and older (Afluria) 3yo and older 07/06/2022,08/19/2021,08/09/2020,07/16,07/29/2018,07/29/2015 Influenza Quadrivalent, with preservative (Fluzone; Afluria) 6mo and older 08/03/2016 Influenza Split 08/08/2013,10/01/2012 Influenza trivalent, 0.5mL, preservative free (Fluarix; FluLaval; Fluzone) ages 6mo and older (Afluria) 3 years and older 07/18/2024,07/13/2015 Influenza trivalent, with pr eservative (Fluzone; Afluria) 6mo and older 06/26/2017,08/11/2014,07/07/2011,09/29 MMR, measles mumps and rubel la Live (Priorix; M-M-R II) 12mo and older 02/15/1999,12/03/1998 Pneumococcal conjugate 20 va lent (Prevnar 20, PCV 20) 2mo and older 07/18/2024 Pneumococcal polysaccharide 23 valent (Pneumovax 23) 2yo and older 09/04/2018,05/04/2011 Pneumococcal, Unspecified 05/04/2011 Td Tetanus diptheria (Tdvax) 7yo and older 09/27/2021,12/03/1998 Tdap Tetanus diptheria acell ular pertussis (Boostrix; Adacel) 7yo and older 05/04/2011 Surgical History Surgery Date Site/Laterality Comments CHOLECYSTECTOMY 2013 N/A PROCEDURE: LAPAROSCOPY, CHOLECYSTECTOMY BREAST REDUCTION 2005 Bilateral PROCEDURE: [place] BREAST REDUCTION SALPINGOOPHORECTOMY 2016 Left PROCEDURE: NH LAPAROSCOPY W/RMVL ADNEXAL STRUCTURES; COMMENT: left salpingectomy only HYSTERECTOMY 02/2018 PROCEDURE: HISTORICAL HYSTERECTOMY; COMMENT: robotic TUBAL LIGATION PROCEDURE: HISTORICAL TUBAL LIGATION BREAST SURGERY 08/2020 PROCEDURE: [place] BREAST AUGMENTATION WITH IMPLANT; COMMENT: in [place] OTHER SURGICAL HISTORY 08/2020 PROCEDURE: HISTORICAL PANNICULECTOMY; COMMENT: Rose Marie mendoza in [place] Medical History Medical History Date Comments Anemia DX:Anemia Asthma DX:Asthma Constipation DX:Constipation Bacterial vaginosis 05/10/2016 DX:Bacterial vaginosis; COMMENT: 10/19/15, 01/14/15 Left ovarian cyst 03/09/2016 DX:Left ovaria n cyst; COMMENT: left ovarian cyst 3.2cm Adenomyosis 10/28/2015 DX:Adenomyosis History of vitamin D deficiency 12/31/2013 DX:History of vitamin D deficiency; COMMENT: Vitamin D = 15 Decreased libido 06/06/2016 DX:Decreased li greyson Dysmenorrhea 05/26/2016 DX:Dysmenorrhea High cholesterol DX:High cholest magdalena Anxiety 12/03/2015 Family History Medical History Relation Name Comments Arthritis Mother Colon cancer Mother Diabetes Mother Hypertension Mother Uterine cancer Mother hysterectomy 2017 Breast cancer Neg Hx Cervical cancer Neg Hx Ovarian cancer Neg Hx Prostate cancer Neg Hx Relation Name Status Comments Mother Alive Social History Tobacco Use Types Packs/Day Years Used Date Smoking Tobacco: Never Smokeless Tobacco: Never Alcohol Use Standard Drinks/Week Comments No 0 (1 standard drink = 0.6 oz pur e alcohol) Comments No Sex and Gender Information Value Date Recorded Sex Assigned at Female 09/10/2024 8:25 AM EST Legal Sex Female 5:06 AM EST Gender Identity Female 09/10/2024 8:25 AM EST Sexual Orientation Choose not to disclose 2023 8:26 AM EST Obstetrics History Para Term AB IAB SAB Ectopic Multiple Livin g Live Births 5 5 5 5 5 Date Outcome GA Total Labor Labor//3rd Weight Sex Type Anes PTL Siobhan A1 A5 Name Clin 1993 Term 2722 g (96 oz) F Vag-S pont N Living Complications:None 1994 Term 4082 g (144 oz) M Vag-S pont N Living Complications:None 1995 Term F Vag-S pont N Living 2000 Term F Vag-S pont N Living 2005 Term 2268 g (80 oz) M Vag-S pont N Living Complications:None Last Filed Vital Signs Vital Sign Reading Time Taken Comments Blood Pressure 141/94 01/01/2025 2:09 PM EST Pulse 71 01/01/2025 2:09 PM EST Temperature 36.7 ??C (98 ??F) 01/01/2025 2:09 PM EST Respiratory Rate 18 12/07/2024 5:51 PM EST Oxygen Saturation 99% 01/01/2025 2:09 PM EST Inhaled Oxygen Concentration - - Weight 84.8 kg (187 lb) 01/01/2025 2:09 PM EST Height 160 cm (5' 3 ) 01/01/2025 2:09 PM EST Body Mass Index 33.13 01/01/2025 2:09 PM EST Plan of Treatment Upcoming Encounters Date Type Department Care Team ([facility] st Contact Info) Description 01/15/2025 2:00 PM EDT Office Visit Obstetrics and Gynecology [address] [place] [phone] Tawny Arriaga, CNM [address] [place] [address] 01/19/2025 7:30 AM EDT Appointment [facility] Ultrasound [address] [place] [phone] 02/02/2025 1:00 PM EDT Office Visit Bariatric Surgery - [place] [address] [phone] Mily Cardenas MD [address] [phone] 02/12/2025 8:45 AM EDT Office Visit Bariatric Surgery [facility] [address] [phone] Paul Rod MD [address] [phone] Health Maintenance Due Date Last Done Comments Breast Cancer Screening 1978 Colorectal Cancer Screening: Colonoscopy 10/01/2022 Social Influencers of Health Screening 10/01/2022 COVID-19 Vaccine ( season) 2024 11/03/2022, 11/27/2021, 03/23/2021, Additional history exists Depression Screening 05/23/2025 05/23/2024 Cholesterol Screening (Lipid Panel) 11/12/2029 11/12/2024, 09/19/2024 DTaP,Tdap,and Td Vaccines (4 - Td or Tdap) 09/27/2031 09/27/2021, 05/04/2011, 12/03/1998 MMR Vaccines Aged Out 02/15/1999, 12/03/1998 No lo nger eligible based on patient's age to complete this topic Hepatitis A Vaccines Aged Out 04/19/2016, 02/18/2014, 01/15/2014 No longer eligible based on patient's age to complete this topic Hepatitis B Vaccines Completed 09/27/2021, 04/19/2016, 02/18/2014, Additional history exists HIV Screening Completed 02/01/2022 Hepatitis C Screening Completed 11/16/2023, 022 Influenza Vaccine Completed 07/18/2024, , 08/19/2021, Additional history exists Pneumococcal Vaccine: Pediatrics (0 to 5 Years) and At-Risk Patients (6 to 64 Years) Completed 07/18/2024, 09/04/2018, 05/04/2011, Additional history exists HIB Vaccines Aged Out No longer eligi ble based on patient's age to complete this topic HPV Vaccines Aged Out No longer eligi ble based on patient's age to complete this topic IPV Vaccines Aged Out No longer eligi ble based on patient's age to complete this topic Meningococcal ACWY Vaccine Aged Out N o longer eligible based on patient's age to complete this topic Meningococcal B Vacine Aged Out No lo nger eligible based on patient's age to complete this topic RSV Immunization Patients Under 20 months Aged Out No longer eligible based on patient's age to complete this topic Varicella Vaccines Aged Out No longer eligible based on patient's age to complete this topic Procedures Procedure Name Priority Date/Time Associated Diagnosis Comments XR CHEST 2 VIEWS STAT 12/07/2024 5:35 PM EST ECG 12-LEAD STAT 12/07/2024 2:43 PM EST TROPONIN I HIGH SENSITIVITY STAT 12/07/2024 2:38 PM EST CBC WITH AUTO DIFFERENTIAL STAT 12/07/2024 1:07 PM EST B-TYPE NATRIURETIC PEPTIDE STAT 12/07/2024 1:07 PM EST MAGNESIUM STAT 12/07/2024 1:07 PM EST LIPASE STAT 12/07/2024 1:07 PM EST COMPREHENSIVE METABOLIC PANEL STAT 12/07/2024 1:07 PM EST CBC AND DIFFERENTIAL STAT 12/07/2024 1:07 PM EST TROPONIN I HIGH SENSITIVITY STAT 12/07/2024 1:07 PM EST ECG 12-LEAD STAT 12/07/2024 12:51 PM EST ECG ANNOTATED 12/07/2024 ECG ANNOTATED 12/07/2024 CT ABDOMEN PELVIS W CONTRAST STAT 10/26/2024 1:06 PM EST US PELVIS NON OB COMPLETE W TRANSVAGINAL STAT 10/26/2024 12:30 PM EST POC , URINE DIAGNOSTIC STAT 10/26/2024 12:18 PM EST URINALYSIS WITH REFLEX MICROSCOPIC STAT 10/26/2024 12:14 PM EST URINALYSIS WITH REFLEX MICROSCOPIC STAT 10/26/2024 12:14 PM EST JETT URINE CULTURE TUBE Routine 10/26/2024 12:08 PM EST EXTRA TUBES Routine 10/26/2024 12:08 PM EST CBC WITH AUTO DIFFERENTIAL STAT 10/26/2024 10:02 AM EST LIPASE STAT 10/26/2024 10:02 AM EST COMPREHENSIVE METABOLIC PANEL STAT 10/26/2024 10:02 AM EST CBC AND DIFFERENTIAL STAT 10/26/2024 10:02 AM EST HEPATITIS C SCREENING Routine 02/01/2022 HIV SCREENING Routine 02/01/2022 from Last 3 Months or Most Recently Relevant to Health Maintenance Results * XR Chest 2 Views (12/07/2024 5:35 PM EST) Anatomical Region Laterality Modality Body Radiographic Leigh ging 12/08/2024 8:21 AM EST Impressions 12/08/2024 8:22 AM EST No acute chest disease. -------- FINAL REPORT -------- Dictated By: Daniel Soriano Dictated Date: 12/08/2024 08:21 ET Assigned Physician: Daniel Soriano Reviewed and Electronically Signed By: Daniel Soriano Signed Date: 12/08/2024 08:22 ET Workstation ID: [id number] Transcribed By: Self Edit Transcribed Date: 12/08/2024 08:21 ET Narrative 12/08/2024 8:22 AM EST EXAMINATION: CHEST CLINICAL INFORMATION: Chest pain COMPARISON: Frontal view 12/27/2023 TECHNIQUE: 2 views of the chest FINDINGS: There is mild rotation to the right. The cardiac size is top normal. No mediastinal or hilar mass. The vasculature, lungs and visualized pleural margins are within normal limits. No focal bony lesions. No suspicious abnormality in the visualized upper abdomen. Procedure Note Daniel Soriano, - 12/08/2024 EXAMINATION: CHEST CLINICAL INFORMATION: Chest pain COMPARISON: Frontal view 12/27/2023 TECHNIQUE: 2 views of the chest FINDINGS: There is mild rotation to the right. The cardiac size is top normal. Nomediastinal or hilar mass. The vasculature, lungs and visualized pleuralmargins are within normal limits. No focal bony lesions. No suspicious abnormality in the visualized upperabdomen. IMPRESSION: No acute chest disease. -------- FINAL REPORT -------- Dictated By: Daniel Soriano Dictated Date: 12/08/2024 08:21 ET Assigned Physician: Daniel Soriano Reviewed and Electronically Signed By: Daniel Soriano Signed Date: 12/08/2024 08:22 ET Workstation ID: [id number] Transcribed By: Self Edit Transcribed Date: 12/08/2024 08:21 ET us Godwin Ordonez MD IMG XR PROCEDURES Final Res ult * ECG 12 lead (12/07/2024 2:43 PM EST) Only the most recent of2 resultswithin the time period is included. Ventricular Rate ECG 71 BPM GEMUSE Atrial Rate 71 BPM GEMUSE P-R Interval 146 ms GEMUSE QRS Duration 84 ms GEMUSE Q-T Interval 424 ms GEMUSE QTc 460 ms GEMUSE P Wave [place] 56 degrees GEMUSE R [place] 34 degrees GEMUSE T [place] 10 degrees GEMUSE ECG Interpretation Normal sinus rhythm Nonspecific T wave abnormality Abnormal ECG When compared with ECG of 07-DEC-2024 12:51, No significant change was found Confirmed by TAMIKA FLORES ([id number]) on 12/07/2024 5:55:47 PM GEMUSE 12/07/2024 2:43 PM EST 12/07/2024 5:55 PM EST Godwin Ordonez MD ECG ORDERABLES Final Resul t Performing Organization Address [facility] de Phone Number GEMUSE * Troponin I high sensitivity (12/07/2024 2:38 PM EST) Only the most recent of2 resultswithin the time period is included. [facility] High Sensitivity Troponin I <3 <=54 ng/L LAB CHEMISTRY METHOD 12/07/2024 3:45 PM EST [facility] Blood Venous blood specimen / Unknown Venipuncture / Unknown 12/07/2024 2:38 PM EST 12/07/2024 3:04 PM EST Narrative [facility] - 12/07/2024 3:45 PM EST High levels of biotin in samples may falsely decrease hsTroponin values. ??Use caution when interpreting hsTroponin results in patients taking biotin who exhibit renal impairment (eGFR <60) or in patients taking more than 20 mg/day of biotin. Godwin Ordonez MD LAB BLOOD ORDERABLES Final Result Performing Organization Address City/[facility]/ZIP Co de Phone Number [facility] [address] [place] [address], [place] [phone] * (ABNORMAL) CBC auto differential (12/07/2024 1:07 PM EST) Only the most recent of2 resultswithin the time period is included. [facility] Signature WBC 8.1 4.8 - 10.8 K/mcL LAB HEMETOLOGY METHOD 12/07/2024 1:41 PM [facility] RBC 3.80 3.80 - 4.80 M/mcL LAB HEMETOLOGY METHOD 12/07/2024 1:41 PM [facility] Hemoglobin 11.2(L) 11.5 - 16.0 g/dL LAB HEMETOLOGY METHOD 12/07/2024 1:41 PM [facility] Hematocrit 35.8 35.0 - 47.0 % LAB HEMETOLOGY METHOD 12/07/2024 1:41 PM [facility] MCV 94.7 79.0 - 98.0 FL LAB HEMETOLOGY METHOD 12/07/2024 1:41 PM [facility] MCH 29.6 27.0 - 32.0 pcg LAB HEMETOLOGY METHOD 12/07/2024 1:41 PM [facility] MCHC 31.3(L) 32.0 - 37.0 g/dL LAB HEMETOLOGY METHOD 12/07/2024 1:41 PM [facility] RDW 12.7 11.0 - 15.0 % LAB HEMETOLOGY METHOD 12/07/2024 1:41 PM [facility] Platelets 273 130 - 400 K/mcL LAB HEMETOLOGY METHOD 12/07/2024 1:41 PM [facility] MPV 10.5 7.0 - 11.0 FL LAB HEMETOLOGY METHOD 12/07/2024 1:41 PM [facility] NRBC 0.0 <1.0 % LAB HEMETOLOGY METHOD 12/07/2024 1:41 PM [facility] NRBC Absolute 0.00 <0.10 K/mcL LAB HEMETOLOGY METHOD 12/07/2024 1:41 PM [facility] Neutrophils Relative 70.6 % LAB HEMETOLOGY METHOD 12/07/2024 1:41 PM [facility] Lymphocytes Relative 21.8 % LAB HEMETOLOGY METHOD 12/07/2024 1:41 PM [facility] Monocytes Relative 4.8 % LAB HEMETOLOGY METHOD 12/07/2024 1:41 PM [facility] Eosinophils Relative 1.7 % LAB HEMETOLOGY METHOD 12/07/2024 1:41 PM [facility] Basophils Relative 0.6 % LAB HEMETOLOGY METHOD 12/07/2024 1:41 PM [facility] Immature Granulocytes Relative 0.5 % LAB HEMETOLOGY METHOD 12/07/2024 1:41 PM [facility] Neutrophils Absolute 5.68 1.50 - 7.00 K/mcL LAB HEMETOLOGY METHOD 12/07/2024 1:41 PM [facility] Lymphocytes Absolute 1.76 1.00 - 5.00 K/mcL LAB HEMETOLOGY METHOD 12/07/2024 1:41 PM [facility] Monocytes Absolute 0.39 0.20 - 1.00 K/mcL LAB HEMETOLOGY METHOD 12/07/2024 1:41 PM [facility] Eosinophils Absolute 0.14 0.00 - 0.50 K/mcL LAB HEMETOLOGY METHOD 12/07/2024 1:41 PM [facility] Basophils Absolute 0.05 0.00 - 0.20 K/mcL LAB HEMETOLOGY METHOD 12/07/2024 1:41 PM [facility] Immature Granulocytes Absolute 0.04(H) 0.00 - 0.03 K/mcL LAB HEMETOLOGY METHOD 12/07/2024 1:41 PM [facility] Blood Venous blood specimen / Unknown Venipuncture / Unknown 12/07/2024 1:07 PM EST 12/07/2024 1:31 PM EST Godwin Ordonez MD LAB BLOOD ORDERABLES Final Result Performing Organization Address [facility] Co de Phone Number [facility] [address] [place] [address], [place] [phone] * B-type natriuretic peptide (12/07/2024 1:07 PM EST) BNP 16 <=100 pcg/mL LAB CHEMISTRY METHOD 12/07/2024 2:07 PM EST [facility] Blood Venous blood specimen / Unknown Venipuncture / Unknown 12/07/2024 1:07 PM EST 12/07/2024 1:31 PM EST Godwin Ordonez MD LAB BLOOD ORDERABLES Final Result Performing Organization Address [facility] de Phone Number [facility] [address] [place] [address], [place] [phone] * (ABNORMAL) Magnesium (12/07/2024 1:07 PM EST) [facility] Magnesium 1.8(L) 1.9 - 2.6 mg/dL LAB CHEMISTRY METHOD 12/07/2024 2:11 PM EST [facility] Blood Venous blood specimen / Unknown Venipuncture / Unknown 12/07/2024 1:07 PM EST 12/07/2024 1:31 PM EST Godwin Ordonez MD LAB BLOOD ORDERABLES Final Result Performing Organization Address [facility] Co de Phone Number [facility] [address] [place] [address], [place] [phone] * Lipase (12/07/2024 1:07 PM EST) Only the most recent of2 resultswithin the time period is included. Lipase 55 13 - 75 unit/L LAB CHEMISTRY METHOD 12/07/2024 2:11 PM [facility] Blood Venous blood specimen / Unknown Venipuncture / Unknown 12/07/2024 1:07 PM EST 12/07/2024 1:31 PM EST Godwin Ordonez MD LAB BLOOD ORDERABLES Final Result [facility] [address] [place] [address], [place] [phone] * (ABNORMAL) Comprehensive metabolic panel (12/07/2024 1:07 PM EST) Only the most recent of2 resultswithin the time period is included. Pathologist [facility] [place] Sodium 138 133 - 145 mmol/L LAB CHEMISTRY METHOD 12/07/2024 2:11 PM [facility] Potassium 4.0 3.5 - 5.5 mmol/L LAB CHEMISTRY METHOD 12/07/2024 2:11 PM [facility] Chloride 105 96 - 110 mmol/L LAB CHEMISTRY METHOD 12/07/2024 2:11 PM [facility] CO2 27 21 - 32 mmol/L LAB CHEMISTRY METHOD 12/07/2024 2:11 PM [facility] [facility] Anion Gap 6 3 - 11 LAB CHEMISTRY METHOD 12/07/2024 2:11 PM [facility] Glucose 148(H) 70 - 100 mg/dL LAB CHEMISTRY METHOD 12/07/2024 2:11 PM [facility] BUN 9 5 - 25 mg/dL LAB CHEMISTRY METHOD 12/07/2024 2:11 PM [facility] Creatinine 0.71 0.50 - 1.10 mg/dL LAB CHEMISTRY METHOD 12/07/2024 2:11 PM [facility] eGFR 106 >=60 mL/min/1. 73m2 LAB CHEMISTRY METHOD 12/07/2024 2:11 PM [facility] Comment:Calculation based on the??Chronic Kidney Disease Epidemiology Collaboration (CKD-EPI) equation refit??without adjustment for race. BUN/Creatinine Ratio 12.7 LAB CHEMISTRY METHOD 12/07/2024 2:11 PM [facility] Calcium 8.9 8.5 - 10.5 mg/dL LAB CHEMISTRY METHOD 12/07/2024 2:11 PM [facility] AST (SGOT) 28 10 - 42 unit/L LAB CHEMISTRY METHOD 12/07/2024 2:11 PM [facility] ALT (SGPT) 21 10 - 60 unit/L LAB CHEMISTRY METHOD 12/07/2024 2:11 PM [facility] Alkaline Phosphatase 68 42 - 121 unit/L LAB CHEMISTRY METHOD 12/07/2024 2:11 PM [facility] Total Protein 6.9 6.0 - 8.0 g/dL LAB CHEMISTRY METHOD 12/07/2024 2:11 PM [facility] Albumin 3.2 3.2 - 5.0 g/dL LAB CHEMISTRY METHOD 12/07/2024 2:11 PM [facility] Total Bilirubin 0.9 0.0 - 1.4 mg/dL LAB CHEMISTRY METHOD 12/07/2024 2:11 PM [facility] Blood Venous blood specimen / Unknown Venipuncture / Unknown 12/07/2024 1:07 PM EST 12/07/2024 1:31 PM EST us Godwin Ordonez MD LAB BLOOD ORDERABLES Final Result [facility] [address] [place] [address], * ECG-Annotated (12/07/2024) Only the most recent of2 resultswithin the time period is included. us Provider Onbase MD ECG ORDERABLES Final Result * CT Abdomen Pelvis w Contrast (10/26/2024 1:06 PM EST) Anatomical Region Laterality Modality Body Computed Tomogra phy 10/26/2024 1:24 PM EST Impressions 10/26/2024 1:35 PM EST No acute intra-abdominal process seen. Mild constipation. Small right ovary and cyst. Gallbladder and uterus have been surgically removed. Appendix is not seen. -------- FINAL REPORT -------- Dictated By: Jayant Hickman Dictated Date: 10/26/2024 13:24 ET Assigned Physician: Jayant Hickman Reviewed and Electronically Signed By: Jayant Hickman Signed Date: 10/26/2024 13:35 ET Workstation ID: [id number] Transcribed By: Self Edit Transcribed Date: 10/26/2024 13:27 ET Narrative 10/26/2024 1:35 PM EST EXAMINATION: CT abdomen and pelvis with contrast. CLINICAL INDICATION: History of anemia, constipation dysmenorrhea. Diffuse abdominal pain. COMPARISON: CT abdomen pelvis 09/22/2024. TECHNIQUE: 2.5 mm thin axial and reformatted 3 mm thin sagittal and coronal images of abdomen and pelvis were obtained following IV 90 mL Isovue 370. Scanner: exozetpeSchrodinger 64 slice VCT Dose reduction technique: ASIR (Adaptive statistical iterative reconstruction) and/or AEC (automated exposure control) Dose: total exam DLP 967 mGy/cm. FINDINGS: Lung bases: Platelike atelectasis left lung base. Heart size is normal. Liver, ducts and gallbladder: The liver is normal size, contour and density. No intrahepatic ductal dilatation seen. The gallbladder is not visualized. Spleen: Unremarkable. Pancreas: Unremarkable. Adrenal glands: Unremarkable. Kidneys and ureters: Both kidneys are normal size, contour and shape. Millimeters radiopaque calculi midpole right kidney. No additional radiopaque calculi seen. There is no calyectasis or hydronephrosis.. Lymphovascular structures: Abdominal aorta is of normal caliber. There are no vertebral lymph nodes are mass seen. GI tract: There is moderate scattered stool throughout the colon without distention. The small bowel loops are normal caliber. Appendix is not visualized. There is no free air or free fluid. Abdominal wall: Unremarkable. Pelvis: There is a 3.8 cm hypodense lateral lesion right adnexa likely right ovarian cyst measuring 21 Hounsfield units. Uterus is not visualized likely surgically removed. No free fluid. No abnormal pelvic or inguinal lymph nodes. Osseous structures: No aggressive lytic or sclerotic process seen. Procedure Note Jayant Hickman MD - 10/26/2024 EXAMINATION: CT abdomen and pelvis with contrast. CLINICAL INDICATION: History of anemia, constipation dysmenorrhea. Diffuseabdominal pain. COMPARISON: CT abdomen pelvis 09/22/2024. TECHNIQUE: 2.5 mm thin axial and reformatted 3 mm thin sagittal andcoronal images of abdomen and pelvis were obtained following IV 90 mLIsovue 370. Scanner: LEYIO 64 slice VCT Dose reduction technique: ASIR (Adaptive statistical iterativereconstruction) and/or AEC (automated exposure control) Dose: total exam DLP 967 mGy/cm. FINDINGS: Lung bases: Platelike atelectasis left lung base. Heart size is normal. Liver, ducts and gallbladder: The liver is normal size, contour anddensity. No intrahepatic ductal dilatation seen. The gallbladder is notvisualized. Spleen: Unremarkable. Pancreas: Unremarkable. Adrenal glands: Unremarkable. Kidneys and ureters: Both kidneys are normal size, contour and shape.Millimeters radiopaque calculi midpole right kidney. No additionalradiopaque calculi seen. There is no calyectasis or hydronephrosis.. Lymphovascular structures: Abdominal aorta is of normal caliber. There areno vertebral lymph nodes are mass seen. GI tract: There is moderate scattered stool throughout the colon withoutdistention. The small bowel loops are normal caliber. Appendix is notvisualized. There is no free air or free fluid. Abdominal wall: Unremarkable. Pelvis: There is a 3.8 cm hypodense lateral lesion right adnexa likelyright ovarian cyst measuring 21 Hounsfield units. Uterus is not visualizedlikely surgically removed. No free fluid. No abnormal pelvic or inguinallymph nodes. Osseous structures: No aggressive lytic or sclerotic process seen. IMPRESSION: No acute intra-abdominal process seen. Mild constipation. Small right ovary and cyst. Gallbladder and uterus have been surgically removed. Appendix is notseen. -------- FINAL REPORT -------- Dictated By: Jayant Hickman Dictated Date: 10/26/2024 13:24 ET Assigned Physician: Jayant Hickman Reviewed and Electronically Signed By: Jayant Hickman Signed Date: 10/26/2024 13:35 ET Workstation ID: [id number] Transcribed By: Self Edit Transcribed Date: 10/26/2024 13:27 ET us Otto Rosen DO IMG CT PROCEDURES Final Result * US Pelvis Non OB Complete w Transvaginal (10/26/2024 12:30 PM EST) Anatomical Region Laterality Modality Body, Pelvis Ultrasound 10/26/2024 1:00 PM EST Impressions 10/26/2024 1:01 PM EST Right ovarian simple cyst measuring 2.6 cm. Left ovary is not seen. Uterus is surgically absent. There is trace free fluid adjacent to the right ovary. -------- FINAL REPORT -------- Dictated By: Jayant Hickman Dictated Date: 10/26/2024 13:00 ET Assigned Physician: Jayant Hickman Reviewed and Electronically Signed By: Jayant Hickman Signed Date: 10/26/2024 13:01 ET Workstation ID: [id number] Transcribed By: Self Edit Transcribed Date: 10/26/2024 13:00 ET Narrative 10/26/2024 1:01 PM EST EXAMINATION: Ultrasound non-OB complete. CLINICAL INDICATION: Left lower quadrant pain x3 days. COMPARISON: CT abdomen pelvis 09/22/2024 TECHNIQUE: Transabdominal and transvaginal imaging of pelvis is performed. FINDINGS: The uterus is surgically absent. Right ovary measures 3.0 x 2.6 x 3.1 cm. There is anechoic cyst within measuring 2.6 x 1.8 x 2.5 cm. A focal lesion seen. The left ovary is not visualized. There is trace free fluid adjacent to right ovary. Procedure Note Jayant Hickman MD - 10/26/2024 EXAMINATION: Ultrasound non-OB complete. CLINICAL INDICATION: Left lower quadrant pain x3 days. COMPARISON: CT abdomen pelvis 09/22/2024 TECHNIQUE: Transabdominal and transvaginal imaging of pelvis isperformed. FINDINGS: The uterus is surgically absent. Right ovary measures 3.0 x 2.6 x 3.1 cm. There is anechoic cyst withinmeasuring 2.6 x 1.8 x 2.5 cm. A focal lesion seen. The left ovary is not visualized. There is trace free fluid adjacent to right ovary. IMPRESSION: Right ovarian simple cyst measuring 2.6 cm. Left ovary is not seen. Uterus is surgically absent. There is trace free fluid adjacent to the right ovary. -------- FINAL REPORT -------- Dictated By: Jayant Hickman Dictated Date: 10/26/2024 13:00 ET Assigned Physician: Jayant Hickman Reviewed and Electronically Signed By: Jayant Hickman Signed Date: 10/26/2024 13:01 ET Workstation ID: [id number] Transcribed By: Self Edit Transcribed Date: 10/26/2024 13:00 ET Otto Rosen DO IMG US PROCEDURES Final Result * POC , urine manually resulted (10/26/2024 12:18 PM EST) Pathologist [facility] [place] HCG, Ur POC Negative Negative Urine Urine specimen obtained by clean catch procedure / Unknown 10/26/2024 12:18 PM EST Otto Rosen DO POINT OF CARE TEST ENTER/EDIT ORDERABLES Final Result * Urinalysis with reflex microscopic (10/26/2024 12:14 PM EST) [facility] [place] Urine 1.014 1.003 - 1.030 LAB URINALYSIS - AUTOMATED METHOD 10/26/2024 12:41 PM EST [facility] pH, Urine 7.0 5.0 - 8.0 pH LAB URINALYSIS - AUTOMATED METHOD 10/26/2024 12:41 PM EST [facility] Leukocytes, Urine Negative Negative LAB URINALYSIS - AUTOMATED METHOD 10/26/2024 12:41 PM [facility] Nitrite, Urine Negative Negative LAB URINALYSIS - AUTOMATED METHOD 10/26/2024 12:41 PM [facility] Protein, Urine Negative <=Trace mg/dL LAB URINALYSIS - AUTOMATED METHOD 10/26/2024 12:41 PM [facility] Glucose, Urine Negative Negative mg/dL LAB URINALYSIS - AUTOMATED METHOD 10/26/2024 12:41 PM [facility] Ketones, Urine Negative Negative mg/dL LAB URINALYSIS - AUTOMATED METHOD 10/26/2024 12:41 PM [facility] Urobilinogen, Urine 1.0 0.2 - 1.0 mg/dL LAB URINALYSIS - AUTOMATED METHOD 10/26/2024 12:41 PM [facility] Bilirubin, Urine Negative Negative LAB URINALYSIS - AUTOMATED METHOD 10/26/2024 12:41 PM [facility] Blood, Urine Negative Negative LAB URINALYSIS - AUTOMATED METHOD 10/26/2024 12:41 PM [facility] Urine Urine specimen obtained by clean catch procedure / Unknown Non-blood Collection / Unknown 10/26/2024 12:14 PM EST 10/26/2024 12:35 PM EST us Otto Rosen DO LAB URINE ORDERABLES Final Res ult [facility] [address] [place] [address], [place] [phone] * Jett urine culture tube (10/26/2024 12:08 PM EST) Extra Tube Hold for add-ons. 10/26/2024 2:01 PM [facility] Comment:Auto resulted. Urine Urine specimen obtained by clean catch procedure / Unknown 10/26/2024 12:08 PM EST 10/26/2024 12:36 PM EST Otto Rosen DO LAB URINE ORDERABLES Final Res ult [facility] [address] [place] [address], [place] [phone] * HIV Screening (02/01/2022) HIV Screening Abstracted Historical Provider HEALTH MAINTENANCE Final Result * Hepatitis C Screening (02/01/2022) Hepatitis C Screening Abstracted Historical Provider HEALTH MAINTENANCE Final Result from Last 3 Months or Most Recently Relevant to Health Maintenance Insurance MEDICAID - [place] Care Teams Paralegal Supervisor Relationship Specialty Start Date End Date Evy Christopher NP [address] [place] [address] PCP - General 10/26/24
--- OUTSIDE RECORDS SUMMARY | 2025-01-10 08:35 | XMS_ITS | Encounter Summary ---
Author Organization [employer] Address [address] [place] [address] Care Team Providers Care Senior Ui Ux Designer Name Role Phone Evy Christopher Primary Care Provider [phone] Romeo Echavarria RN Unavailable [phone] Encounter Details Date Type Department Care Team (Late st Contact Info) Description 10/16/2024 Telephone [facility] [address] [place], [place] [phone] Evy Christopher ANP [address] [place], [place] [phone] Social History Tobacco Use Types Packs/Day Years [...] Description 02/09/2025 2:00 PM EDT Office Visit [facility] [address] [place] [address] Evy Christopher ANP [address] [place] [address] documented as of this encounter Visit Diagnoses Not on filedocumented in this encounter Additional Health Concerns Assessment Noted Time PHQ-9 Depression Total Score: 2 05/23/20 24 9:49 AM EDT documented as of this encounter Care Teams Senior Ui Ux Designer Relationship Specialty Start Date End Date Evy Christopher ANP [address] [place] [address] PCP - General Family Medicine 06/20/21 Romeo Echavarria, SUKHWINDER [address] [place] [address] Cephalometric AnalystProduct Management Internship 12/25/24 documented as of this encounter
--- OUTSIDE RECORDS SUMMARY | 2025-01-10 08:35 | XMS_ITS | Encounter Summary ---
Author Organization [employer] Address [address] [place] [address] Care Team Providers Care Data Software Engineer Name Role Phone Evy Christopher JORGE A Primary Care Provider [phone] Romeo Echavarria RN Unavailable [phone] Encounter Details Date Type Department Care Team (Late st Contact Info) Description 09/23/2024 Orders Only [facility] [address] [place] [address] Provider, MD Pearl Social History Tobacco Use [...] 2:00 PM EDT Office Visit [facility] [address] [place] [address] Evy Christopher ANP [address] [place] [address] documented as of this encounter Procedures Procedure Name Priority Date/Time Associated Diagnosis Comments CT ABDOMEN PELVIS W CONTRAST Routine 09/22/2024 9:56 AM EST documented in this encounter Results * CT Abdomen Pelvis w/ Contrast (09/22/2024 9:56 AM EST) Anatomical Region Laterality Modality Body, Pelvis, Abdomen Computed T omography us Historical Provider MD ESPINOZA CT PROCEDURES Final R esult documented in this encounter Visit Diagnoses Not on filedocumented in this encounter Additional Health Concerns Assessment Noted Time PHQ-9 Depression Total Score: 2 05/23/20 24 9:49 AM EDT documented as of this encounter Care Teams Data Software Engineer Relationship Specialty Start Date End Date Evy Christopher ANP [address] [place] [id number] PCP - General Family Medicine 06/20/21 Romeo Echavarria, SUKHWINDER [address] [place] [id number] Assistant Import ManagerDensity Control Puncher 12/25/24 documented as of this encounter
--- OUTSIDE RECORDS SUMMARY | 2025-01-10 08:35 | XMS_ITS | Encounter Summary ---
Author Organization [employer] Address [address] [place] [address] Care Team Providers Care Realtime Captioner Name Role Phone Evy Christopher JORGE A Primary Care Provider [phone] Romeo Echavarria RN Unavailable [phone] Reason for Visit * Reason Onset Date Comments RCT active request 09/26/2023 Encounter Details Date Type Department Care Team ([facility] st Contact Info) Description 09/26/2023 Telephone [facility] [address] [place] [address] Torie Mishra DDS [address] [place] [address] RCT active request Social History Tobacco Use Types Packs/Day Years [...] encounter Miscellaneous Notes * Telephone Encounter - Yessica Baljindre - 09/26/2023 1:13 PM EST Ptient states that she has to return to her previous provider for a possible RCT on a tooth that was worked on. But that there is a tooth that also needs an RCT done and that she would like to get treatment with Dr. Gastelum. But its not active requested and she was trying to get that scheduled. She also is looking for a script to be sent to the pharmacy DR documented in this encounter Plan of Treatment Upcoming Encounters Date Type Department Care Team (Late st Contact Info) Description 02/09/2025 2:00 PM EDT Office Visit [facility] [address] [place] [address] Evy Christopher ANP [address] [place] [address] documented as of this encounter Visit Diagnoses Not on filedocumented in this encounter Additional Health Concerns Assessment Noted Time PHQ-9 Depression Total Score: 13 023 2:43 PM EST documented as of this encounter Care Teams Realtime Captioner Relationship Specialty Start Date End Date Evy Christopher ANP [address] [place] [address] PCP - General Family Medicine 06/20/21 Romeo Echavarria RN [address] [place] [id number] Surgical Services AsstCommodities Trader 12/25/24 documented as of this encounter
--- OUTSIDE RECORDS SUMMARY | 2025-01-10 08:35 | XMS_ITS | Clinical Summary ---
Author Organization [employer] Address [address] [place] [address] Care Team Providers Care Chrome Worker Name Role Phone Trevor Medina JORGE A Primary Care Provider [phone] Romeo Echavarria RN Unavailable [phone] Allergies Active Allergy Reactions Criticality Noted Date Comments Gramineae Pollens 05/09/2024 Other Reaction(s): Unknown Medications * This document contains information received from the source organization and may not represent a complete record from that organization. sennosides (Senokot) 8.6 MG tablet Take 1 tablet by mouth in the morning. 022 Active Blood Glucose Monitoring Suppl (FreeStyle Lite) w/Device kit USE DIRECTED TO CHECK BLOOD SUGAR 022 Active cholecalciferol (Vitamin D-3) 25 MCG (1000 UT) capsule Take 1 capsule by mouth at bed time. 021 Active levonorgestrel-et hinyl estradiol (Aviane, Alesse, Lessina) 0.1-20 MG-MCG tablet Take by mouth. 023 Active loratadine (Claritin) 10 MG tablet Take 1 tablet (10 mg) by mouth if needed each day for allergies. 90 tablet 023 Active ondansetron (Zofran) 4 MG tabletIndications :Nausea Take 1 tablet (4 mg) by mouth every 8 (eight) hours if needed for nausea or vomiting. 30 tablet 1 023 Active SUMAtriptan (Imitrex) 50 MG tablet Take 1 tablet (50 mg) by mouth 1 (one) time if needed for migraine. Take with fluids at the onset of migraine; may repeat after 2 hours if migraine returns 15 tablet 1 Active ketotifen (Zaditor) 0.025 % ophthalmic solutionIndicatio ns:Allergic conjunctivitis, unspecified laterality Administer 1 drop into both eyes if needed in the morning and at bedtime (itching). 10 mL 023 Active hydrOXYzine HCl (Atarax) 10 MG tabletIndications :Right hip pain,Difficulty sleeping Take 1-2 tablets (10-20 mg) by mouth every 6 (six) hours. As needed for anxiety or insomnia 45 tablet 1 023 Active polyethylene glycol, PEG, 3350 (Glycolax) 17 GM/SCOOP powderIndications :Constipation, unspecified constipation type 1 scoop (17g) as needed 1-2 times daily for constipation. Mix with 8oz water, juice, soda, coffee, or tea 510 g 1 023 Active acetaminophen (Tylenol) 500 MG tabletIndications :Acute nonintractable headache, unspecified headache type Take 2 tablets (1,000 mg) by mouth every 8 (eight) hours if needed for moderate pain or headaches. 40 tablet 024 Active lidocaine (Lidoderm) 5 % patchIndications: Right hip pain Apply 1 patch topically in the morning. Remove & discard patch within 12 hours or as directed by MD. 30 patch Active cetirizine (ZyrTEC) 10 MG tablet Take 1 tablet (10 mg) by mouth Once per day. 30 tablet 11 024 2024 Active EPINEPHrine (Epipen) 0.3 MG/0.3ML injection syringe Inject 0.3 mL (0.3 mg) as directed 1 (one) time if needed for anaphylaxis for up to 2 doses. Inject into upper leg. Call 911 after use. 2 each Active Melatonin 3 MG capsule Take 3 mg by mouth if needed at bedtime (sleep). 30 capsule 2 024 2024 Active albuterol (2.5 MG/3ML) 0.083% nebulizer solutionIndicatio ns:Moderate persistent asthma with exacerbation Take 3 mL by nebulization every 8 (eight) hours if needed for wheezing or shortness of breath. 75 mL 3 024 Active esomeprazole (NexIUM) [address] capsule Take 40 mg by mouth 2 times daily. Active FLUoxetine (PROzac) 20 MG capsuleIndication s:SHANNA (generalized anxiety disorder) Take 1 capsule (20 mg) by mouth Once per day. 90 capsule Active glucose blood (FREESTYLE LITE) test stripIndications: Prediabetes USE TO CHECK FASTING SUGAR IN THE MORNING OR NEEDED FOR SYMPTOMS 100 strip 11 024 Active ezetimibe (Zetia) 10 MG tabletIndications :Dyslipidemia Take 1 tablet (10 mg) by mouth Once daily. 90 tablet 1 024 2024 Active FreeStyle lancetsIndication s:Prediabetes 1 each by Other route if needed each day (blood sugar). 100 each 2 025 Active Alcohol Swabs (B-D SINGLE USE SWABS REGULAR) padsIndications:P rediabetes USE DIRECTED WHEN TESTING BLOOD SUGAR EVERY MORNING 100 each 11 025 Active albuterol 108 (90 Base) MCG/ACT inhalerIndication s:Moderate persistent asthma with exacerbation Inhale 2 puffs every 4 (four) hours if needed for wheezing. 18 g 3 025 Active methocarbamol (Robaxin) 750 MG tablet Take 750 mg by mouth 4 times daily. Active ibuprofen 800 MG tabletIndications :Strain of left rotator cuff capsule, sequela Take 1 tablet (800 mg) by mouth every 8 (eight) hours if needed for moderate pain or fever. 30 tablet 025 2024 Active cyclobenzaprine (Flexeril) 10 MG tabletIndications :Strain of left rotator cuff capsule, sequela One tab po at bedtime prn pain of muscles, do not drive with medicaion 30 tablet 025 Active rosuvastatin (Crestor) 40 MG tablet TAKE 1 TABLET BY MOUTH EVERY DAY AT BEDTIME 90 tablet 1 025 Active rosuvastatin (Crestor) 40 MG tablet TAKE 1 TABLET BY MOUTH EVERY DAY AT BEDTIME 90 tablet 1 024 2024 Discontinued Active Problems Problem Noted Date Diagnosed Date Strain of left rotator cuff capsule 12/30/2024 Assessment & Plan (12/30/2024 2:22 PM EST): Pain, muscle spasm and limited ROM in left shoulder and trapezius muscle. -referred to Orthopedics -prescribed high dose ibuprofen and cyclobenzaprine (Flexeril) 10 MG Bilateral sciatica 12/30/2024 Assessment & Plan (12/30/2024 2:22 PM EST): Chronic bilateral sciatica. -referred to PT. Class 1 obesity 06/23/2024 Hemorrhoids, internal 06/23/2024 Incisional hernia 06/23/2024 Postoperative pain 06/23/2024 Transaminitis 06/23/2024 Assessment & Plan (06/23/2024 4:50 PM EDT): Recheck today Polyarthralgia 03/03/2024 Assessment & Plan (03/03/2024 12:26 PM EDT): I will refer patient to rheumatology Anxiety with depression 03/03/2024 Assessment & Plan (03/03/2024 12:26 PM EDT): BHN referral done, declines to be sen today Osteoarthritis of both knees 03/03/2024 Chronic joint pain 02/06/2024 Chronic pain syndrome 01/28/2024 Assessment & Plan (02/03/2024 6:08 PM EDT): Pt reports work up and suggestions of nerve stimulator but pt is not interested in this intervention, requesting referral to pain management, referral placed No change in baseline symptoms, though general trend per report is pain is worse without aggravating trauma or activity Chronic bilateral low back pain 01/28/2024 Assessment & Plan (03/03/2024 12:28 PM EDT): Apply heat on affected area Last MRI done 12/2022 I will order a new one today Cymbalta ordered today f/u with PCP Cyclobenzaprine 5mg Q 8hrs (I day camp counselor about side effect somnolence, she can not drive while taking mmedication) Alternate acetaminophen and ibuprofen F/u with PCP Elevated heart rate with christopher vated blood pressure without diagnosis of hypertension 12/31/2023 Assessment & Plan (12/31/2023 10:21 AM EST): Upcoming visit with cardiology, has home bp monitor, declines bp medication today, reviewed s/s to report Encounter for health maintenance examination 01/2024 Assessment & Plan (12/31/2023 10:20 AM EST): Pt is in care with back seam stitcher, utd on mammogram, pap completed 09/20, GI visit scheduled for colonoscopy, anticipatory guidance reviewed, History of abdominoplasty 11/14/2023 YANI (obstructive sleep apnea) 09/11/2023 Overview (09/09/2024): AutoCPAP 8-20cm Is using CPAP. Pt cont to benefit from and require CPAP/APAP/BiPAP therapy. Assessment & Plan (06/23/2024 4:55 PM EDT): Will check on the status of CPAP DME order per pt request Assessment & Plan (12/31/2023 10:16 AM EST): Contemplative regarding sleep medicine referral today as pt does not want to use mask Sciatica without back pain, right 04/23/2023 Assessment & Plan (04/23/2023 7:10 PM EDT): Pt w hx of lower back pain with right leg radiation dxed sciatica s/p back injections f w ortho at [facility] Here w 1 week of pain reports only in buttock area , per pt in hip but no pain in lateral aspect concerning x trochanteric bursitis Pain radiates to back of buttock so appears sciatica vs piriformis syndrome -right hip XR today at [facility] is reported as normal -warm compresses -tylenol 1 gr Q 8 h prn -lidocaine patch -prescribed prednisone 40 mg daily x 5 days x persistent pain--pt taking PPIs daily -refusing gabapentin -continue naproxen prn x mod pain -advised pt to continue care w her orthopedic LLQ pain 03/07/2023 Overview (06/23/2024): Last Assessment & Plan: +Left adnexal tenderness. Ultrasound ordered further evaluation. History of septic arthritis 01/02/2023 Overview (01/02/2023): Images from the original note were not included. 07/2022 septic arthritis T8. Received 6 wks vancomycin. Most recent MRI 01/01/23: Vitamin D deficiency 11/03/2022 H/O: hysterectomy 07/06/2022 Overview (09/11/2023): Retained cervix Pap 09/10/23 Assessment & Plan (12/31/2023 10:17 AM EST): Per pt report UTD on pap, managed by back seam stitcher Right ovarian cyst 04/17/2021 Overview (06/23/2024): 06/2023 measuring 3.0 x 2.9 x 2.8 cm Prediabetes 01/22/2019 Overview (09/09/2024): Lab Results Component Value Date HGBA1C 5.7 09/11/2023 HGBA1C 5.2 07/07/2022 HGBA1C 5.2 02/23/2021 Mild persistent asthma without complication 11/29 Hyperlipidemia 12/03/2015 Overview (09/11/2023): Cont rosuvastatin 40mg Assessment & Plan (12/31/2023 10:17 AM EST): Continue rosuvastatin 40 mg, labs completed at [facility] Headache 12/03/2015 Chronic abdominal pain 12/03/2015 Assessment & Plan (05/23/2024 12:40 PM EDT): -acute on chronic presentation -may need to undergo ERCP -advised to call Dr. Roach office for stat appointment. Will have team nurses call as well -advised to discontinue rosuvastatin at this time until LFT's normalize -hepatic panel labs ordered -up to date on Hepatitis A and B vaccines; no evidence of Hep C infection -ED precautions reviewed -follow-up with PCP as needed Assessment & Plan (02/03/2024 6:09 PM EDT): CT neg, No functional impairment, per pt report, pain started after procedure, will refer to surgery for surgical opinion regarding current symptoms Assessment & Plan (12/31/2023 10:16 AM EST): Stable, chronic since abdominal surgeries, aware to report any change in symptoms Anxiety 12/03/2015 Assessment & Plan (12/31/2023 10:19 AM EST): Increase sertraline to 100 mg, Medication Indications, side effects and duration of therapy reviewed, pt aware to call clinic for any intolerance. Rtc in 2 months, declines therapy today Allergic rhinitis 12/03/2015 Resolved Problems Problem Noted Date Diagnosed Date Resolved Date Urinary tract infection symptoms 03/07/2023 09/09/2024 Overview (06/23/2024): Last Assessment & Plan: UA negative, however exam concerning for UTI. Urine culture ordered. Encounters Date Type Department Care Team Description 01/07/2025 Telephone [facility] [address] [place] [phone] Trevor Medina ANP Care Management (C3CM- F/U call # 1/LVM) 01/01/2025 Patient Outreach [facility] [address] [place] [phone] Trevor Medina ANP Transition Of Care (Tcm) 12/31/2024 Refill [facility] [address] [place] [address] [phone] Trevor Medina ANP 12/30/2024 2:00 PM EST Office Visit [facility] [address] [place], [place] [phone] Beatrice Cabrales MD Strain of left rotator cuff capsule, sequela (Primary Dx); Bilateral sciatica 12/26/2024 9:15 AM EST Office Visit [facility] [address] [place], [place] [phone] Pam Agarwal, OD Myopia of both eyes (Primary Dx) 12/25/[address] [phone] Trevor Medina ANP Care Management (C3CM- Initial assessment/enrollment) 12/24/[address] [address] Trevor Medina ANP Medication Question 12/24/2024 Patient Outreach [address] [address] Trevor Medina ANP Care Coordination (C3 CM-CHW Aleja Brannon telephone call outreach) 12/22/[address] [phone] Trevor Medina ANP Referral 12/09/[address] [address] Namita Lorenzana [facility] 12/09/2024 Patient Outreach [address] [address] Trevor Medina ANP Care Coordination (C3 CM-W Aleja Brannon telephone call outreach) 12/08/2024 Patient Outreach [address] [phone] Trevor Medina ANP Care Coordination (C3 CM-CHW Aleja Brannon telephone call outreach) 12/08/2024 Patient Outreach [address] [phone] Trevor Medina ANP Care Coordination (C3 CM-CHW Aleja Vaquez telephone call outreach) 12/08/2024 Patient Outreach [address] [address] Trevor Medina ANP Care Coordination (C3 CM-CHW Aleja Brannon chart review) 12/08/2024 Patient Outreach [address] [address] Trevor Medina ANP Transition Of Care (Tcm) 12/08/[address] [phone] Trevor Medina ANP Care Management (C3CM- chart review) 12/01/2024 Telephone [facility] [address] [place] [address] Trevor Medina ANP Referral; january recall (Called pt to book appt for follow up.pt agreed to come 02/09/25 ) 11/19/2024 3:00 PM EST Office Visit [facility] [address] [place] [address] Stefano, Pam, OD Dry eyes, bilateral (Primary Dx); Myopia of both eyes 11/19/2024 Travel 11/18/2024 Telephone [facility] [address] [place] [address] Trevor Medina ANP Results 11/11/2024 11:15 AM EST Office Visit [facility] [place] [address] Trevor Medina ANP Transaminitis (Primary Dx); Fatigue, unspecified type; Acute cough; Viral URI; Prediabetes; Hyperlipidemia, unspecified hyperlipidemia type; Moderate persistent asthma with exacerbation; History of hernia repair 11/11/2024 Travel 10/30/2024 Telephone [facility] [address] [place] [address] Trevor Medina ANP ER Follow-up 10/27/2024 Orders Only GENERIC EXTERNAL DATA DEPARTMENT Provider, Generic External Data 10/27/2024 Patient Outreach [address] [address] Linnea Ag RN Transition Of Care (Tcm) 10/26/[address] [address] Trevor Medina ANP 10/16/[address] [address] Trevor Medina ANP 10/14/2024 Telephone [facility] [address] [place] [phone] Albertina Becker RN Medication 10/14/2024 Orders Only [facility] [address] [place] [phone] Trevor Medina ANP Dyslipidemia (Primary Dx) from Last 3 Months Immunizations Name Administration Dates Next Due Hep A / Hep B 04/19/2016,02/18/2014,01/15/2014 Hep B, Adolescent or Pediatric 06/28/1999,1998,12/03/1998 Hep B, adult 09/27/2021 Influenza injectable quadriv alent IIV4 with preservative 08/03/2016 Influenza injectable quadriv alent preservative free 07/06/2022,08/19/2021,08/09/2020,07/16,07/29/2018,07/29/2015 Influenza, IIV3, injectable 06/26/2017,1 ,07/07/2011,09/29 Influenza, Split (incl. shamika fied surface antigen) 08/08/2013,10/01/2012 Influenza, seasonal, injecta ble, preservative free 07/18/2024,07/13/2015 MMR 02/15/1999,12/03/1998 Pfizer Covid-19 Vaccine 12+ 03/23/2021, Pfizer Covid-19 Vaccine 12+ Bivalent 11/03/2022, 11/27/2021 Pfizer Covid-19 Vaccine 12+ kristie-sucrose (Jett Cap) 11/27/2021 Pneumococcal Conjugate PCV 20 07/18/2024 Pneumococcal Polysaccharide PPSV23 09/04/2018, Pneumococcal, Unspecified 05/04/2011 TD (adult), 2 Lf tetanus tox oid, preservative free, adsorbed 09/27/2021,12/03/1998 Tdap 05/04/2011 Family History Medical History Relation Name Comments Breast cancer Mother Diabetes Mother Stroke Mother Uterine cancer Mother Relation Name Status Comments Mother Social History Tobacco Use Types Packs/Day Years Used Date Smoking Tobacco: Never Passive Smoke Exposure: Never Smokeless Tobacco: Never Tobacco Cessation:Counseling Given: Not Answered Alcohol Use Standard Drinks/Week Comments Never 0 [...] Orientation Straight 08/28/2022 10 :14 AM EDT Last Filed Vital Signs Vital Sign Reading [...] oz) 12/30/2024 2:13 P M EST Height 160 cm (5' 3 ) 09/09/2024 9:29 AM EST Body Mass Index 33.41 09/09/2024 9:29 AM EST Plan of Treatment Upcoming Encounters Date Type Department Care Team (Late st Contact Info) Description 02/09/2025 2:00 PM EDT Office Visit [facility] [address] [place] [address] Trevor Medina ANP [address] [place] [address] Health Maintenance Due Date Last Done Comments CT Colonography 1978 Dental Oral Exam 1978 Dental Prophylaxis 1978 Dental X-Ray: Full Mouth 1978 FIT DNA/Cologuard 1978 FIT 1980 FOBT 1980 Sigmoidoscopy 1980 Family Planning (PISQ) 1993 Pap Smear 12/31/2016 12/31/2013 Cervical Cancer Screening 12/31/2018 HPV/Cotest 12/31/2018 12/31/2013 COVID-19 Vaccine ( season) 2024 11/03/2022, 11/27/2021, 11/27/2021, Additional history exists Dental X-Ray: Bitewings 09/27/2024 09/26/2023 Alcohol/Substance Use Screening 05/23/2025 05/23/2024 Depression Screening 05/23/2025 05/23/2024, 05/23/20 24 Diabetes: Hemoglobin A1C 11/12/2025 025, 09/19/2024, 09/11/2023, Additional history exists Mammogram 11/17/2025 11/17/2024, 10/30, 12/24/2023, Additional history exists SDOH Screening 12/08/2025 12/08/2024 Tobacco Screening 12/30/2025 12/30/2024 Zoster Vaccines (1 of 2) 2028 Colonoscopy 09/01/2029 12/17/2014 Colorectal Cancer Screening 09/01/2029 DTaP/Tdap/Td Vaccines (3 - Td or Tdap) 09/27/2031 09/27/2021, 05/04/2011, 12/03/1998 RSV Patients and Patients Aged 60 years or older (1 - 1-dose 75+ series) 2053 Hepatitis A Vaccines Aged Out 04/19/2016, 02/18/2014, 01/15/2014 No longer eligible based on patient's age to complete this topic Hepatitis B Vaccines Completed 09/27/2021, 04/19/2016, 02/18/2014, Additional history exists HIV Screening Completed 07/12/2023, 10/30, 08/17/2020, Additional history exists Hepatitis C Screening Completed 11/16/2023, 021 Influenza Vaccine Completed 07/18/2024, , 08/19/2021, Additional history exists Pneumococcal Vaccine: Pediatrics (0 to 5 Years) and At-Risk Patients (6 to 49) Years) Completed 07/18/2024, 09/04/2018, 05/04/2011, Additional history exists HIB Vaccines Aged Out No longer eligi ble based on patient's age to complete this topic HPV Vaccines Aged Out No longer eligi ble based on patient's age to complete this topic IPV Vaccines Aged Out No longer eligi ble based on patient's age to complete this topic Meningococcal Vaccine Aged Out No catherine dre eligible based on patient's age to complete this topic RSV under 20 months Aged Out No longe r eligible based on patient's age to complete this topic Rotavirus Vaccines Aged Out No longer eligible based on patient's age to complete this topic Procedures Procedure Name Priority Date/Time Associated Diagnosis Comments BI MAMMOGRAM SCREEN W LUKAS W IMPLANTS HARJEET Routine 11/17/2024 2:28 PM EST LIPID PANEL, STANDARD Routine 11/12/2024 8:04 AM EST Hyperlipidemia, unspecified hyperlipidemia type HEMOGLOBIN A1C Routine 11/12/2024 8:04 AM EST Prediabetes LIPASE Routine 11/12/2024 8:04 AM EST Transaminitis IRON AND TOTAL IRON BINDING CAPACITY Routine 11/12/2024 8:04 AM EST Fatigue, unspecified type CBC WITH AUTO DIFFERENTIAL Routine 11/12/2024 8:04 AM EST Fatigue, unspecified type HEPATIC FUNCTION PANEL Routine 11/12/2024 8:04 AM EST Transaminitis HEPATIC FUNCTION PANEL Routine 10/27/2024 7:24 PM EST ACETAMINOPHEN LEVEL Routine 10/27/2024 7 :24 PM EST PROTHROMBIN TIME-INR Routine 10/27/2024 7:[address] ABDOMEN PELVIS W CONTRAST Routine 10/27/2024 3:19 PM EST C-REACTIVE PROTEIN Routine 10/27/2024 12 :45 PM EST BILIRUBIN, DIRECT Routine 10/27/2024 12: 45 PM EST SLIDE REVIEW Routine 10/27/2024 12:45 PM EST HCG, TOTAL, QN Routine 10/27/2024 12:45 PM EST LIPASE Routine 10/27/2024 12:45 PM EST COMPREHENSIVE METABOLIC PANEL Routine 10/27/2024 12:45 PM EST CBC WITH AUTO DIFFERENTIAL Routine 10/27/2024 12:45 PM EST URINALYSIS, COMPLETE, WITH REFLEX TO CULTURE Routine 10/27/2024 12:44 PM EST HEPATITIS C AB W/REFL TO HCV RNA, QN, PCR Routine 11/16/2023 9:23 AM EST Elevated ferritin level BITEWING - SINGLE RADIOGRAPHIC IMAGE Routine 09/26/2023 11:30 AM EST Failing root canal HIV ANTIBODY/ANTIGEN ([place] DPH) Routine 07/12/2023 9:10 AM EDT HM COLONOSCOPY Routine 12/17/2014 HM PAP/HPV Routine 12/31/2013 from Last 3 Months or Most Recently Relevant to Health Maintenance Results * BI Mammogram Screen w/ Lukas w/ Implants Harjeet (11/17/2024 2:28 PM EST) Anatomical Region Laterality Modality Mammography 11/17/2024 2:28 PM EST Narrative 11/25/2024 3:33 PM EST ? [facility] [address] ?[place] [address] ? Mammography Report ? Signed ? Patient: Afua Hector ?MR#: [id number] ? : 1980 ?Acct:[id number] ? Age/Sex: 44 / F ?ADM Date: 11/17/ ? Loc: HO.MAMMO ? Attending Dr: Trevor Medina JOB SPOTTER ? Ordering Physician: ADAM,TREVOR HUTSON ?Results: 2Benign Fin ?? dings ? Date of Service: 11/17/ ?Follow Up: 1 Year From Orig ?? inal Mammogram ? Procedure(s): MM tomosynthesis screen imp BI ?? Accession Number(s): [id number] ? cc: ADAM,TREVOR JOB SPOTTER ? EXAMINATION: ?? MM SCREENING DIGITAL BREAST TOMOSYNTHESIS, BILATERAL ? CLINICAL INFORMATION: ? Screening. Asymptomatic. ? COMPARISON: ?? Mammography: Comparison is made with relevant avialable priors. ? TECHNIQUE: ?? Digital mammography is performed in craniocaudal and mediolateral ?? oblique views along with computer-aided detection (CAD). Digital breast ?? tomosynthesis is performed in implant-displaced craniocaudal and ?? implant-displaced mediolateral oblique views along with computer-aided ?? detection (CAD). ? FINDINGS: ?? The breasts are heterogeneously dense, which may obscure small masses ?? (ACR BI-RADS breast composition Category c). ?? Bilateral retropectoral implants are stable appearing. ?? There are no significant masses, abnormal calcifications, or other ?? abnormalities. ? MM/MM tomosynthesis screen imp BI ?? IMPRESSION: ?? There are no significant changes from prior study. ? ASSESSMENT: ? BI-RADS BI-RADS 2 - Benign Findings ? RECOMMENDATION: ?? Routine annual mammography screening. ? 1 year F/U ? This patient's information was entered into a reminder system with a ?? target due date for their next mammogram. ? Electronically signed by: ??Milla Craig DO ??11/25/2024 03:30 PM EST ? Dictated By: ?Milla Craig DO ? Signed By: ?<Electronically signed by Milla Craig, DO in OV> ? 11/25/24 1530 ? DD/ 1428 ? TD/TT: 11/17/24 1452 ? Manager Spanish: ? Procedure Note Anthony, Image - 11/25/2024 [facility] [address] [place] [address] Mammography Report Signed Patient: Afua Hector LMR#: [id number] : 1980Acct:[id number] Age/Sex: 44 / FADM Date: 11/17/24 Loc: HO.MAMMO Attending Dr: Trevor Medina JOB SPOTTER Ordering Physician: TREVOR MEDINAesults: 2Bvance hammonds Date of Service: 11/17/24Follow Up: 1 Year From Orig inal Mammogram Procedure(s): MM tomosynthesis screen imp BI Accession Number(s): [id number] cc: TREVOR MEDINA JOB SPOTTER EXAMINATION: MM SCREENING DIGITAL BREAST TOMOSYNTHESIS, BILATERAL CLINICAL INFORMATION: Screening. Asymptomatic. COMPARISON: Mammography: Comparison is made with relevant avialable priors. TECHNIQUE: Digital mammography is performed in craniocaudal and mediolateral oblique views along with computer-aided detection (CAD). Digital breast tomosynthesis is performed in implant-displaced craniocaudal and implant-displaced mediolateral oblique views along with computer-aided detection (CAD). FINDINGS: The breasts are heterogeneously dense, which may obscure small masses (ACR BI-RADS breast composition Category c). Bilateral retropectoral implants are stable appearing. There are no significant masses, abnormal calcifications, or other abnormalities. MM/MM tomosynthesis screen imp BI IMPRESSION: There are no significant changes from prior study. ASSESSMENT: BI-RADS BI-RADS 2 - Benign Findings RECOMMENDATION: Routine annual mammography screening. 1 year F/U This patient's information was entered into a reminder system with a target due date for their next mammogram. Electronically signed by: Milla Craig DO 11/25/2024 03:30 PM EST RP Dictated By: Milla Craig DO Signed By: <Electronically signed by Milla Craig DO in OV> 11/25/24 1530 DD/ 1428 TD/TT: 11/17/24 1452 Manager Spanish: [facility] BI PROCEDURES Final Result * (ABNORMAL) CBC auto differential (11/12/2024 8:04 AM EST) Only the most recent of2 resultswithin the time period is included. White Blood Count 8.2 4.8 - 10.8 X10*3/uL [facility] Red Blood Count 3.81(L) 4.20 - 5.50 X10*6/uL [facility] Hemoglobin 11.4(L) 12.0 - 16.0 g/dl [facility] Hematocrit 35.2(L) 37.0 - 47.0 % [facility] Mean Corpuscular Volume 92.4 80.0 - 98.0 fL [facility] Mean Corpuscular Hemoglobin 29.9 27.0 - 33.0 pg [facility] Mean Corpuscular HGB Conc 32.4 31.0 - 35.0 g/dl [facility] Red Cell Distribution Width 12.7 11.0 - 16.0 % [facility] Platelet Count 319 160 - 400 X10*3/uL [facility] Mean Platelet Volume 10.6 9.4 - 12.3 fL [facility] Neutrophils Percent Auto 64.2 45 - 73 % [facility] Imm Gran Pct Auto 0.7(H) 0.0 - 0.4 % [facility] Lymphocytes Percent Auto 24.2 20 - 40 % [facility] Monocytes Percent Auto 8.3 2 - 11 % [facility] Eosinophils Percent Auto 1.9 0 - 4 % [facility] Basophils Percent Auto 0.7 0 - 2 % [facility] NRBC Pct Auto 0.0 0.0 - 0.2 /100WBC [facility] Neutrophils Absolute Auto 5.3 2.0 - 8.3 x10*3/uL [facility] Imm Gran Abs Auto 0.06(H) 0.00 - 0.03 X10*3/uL [facility] Lymphocytes Absolute Auto 2.0 1.2 - 4.9 X10*3/uL [facility] Monocytes Absolute Auto 0.7 0.1 - 1.2 X10*3/uL [facility] Eosinophils Absolute Auto 0.2 0.0 - 0.4 X10*3/uL [facility] Basophils Absolute Auto 0.1 0.0 - 0.2 X10*3/uL [facility] NRBC Abs Auto 0.000 0.0 - 0.012 X10*3/uL [facility] Blood Venous blood specimen / Unknown 11/12/2024 8:04 AM EST 11/12/2024 11:03 AM EST Trevor Medina BANNER LAB BLOOD ORDERABLES Final Resul t [facility] [address], [place] [phone] * Iron And Total Iron Binding Capacity (11/12/2024 8:04 AM EST) Iron 74 30 - 160 mcg/dL [facility] Total Iron Binding Capacity 265 228 - 428 mcg/dL [facility] Percent Iron Saturation 28 15 - 50 % [facility] Unsaturated Iron Binding 191 ug/dL [facility] Blood Venous blood specimen / Unknown 11/12/2024 8:04 AM EST 11/12/2024 11:03 AM EST Trevor Medina ANP LAB BLOOD ORDERABLES Final Resul t Performing Organization Address City/[facility]/ZIP Co de Phone Number [facility] [address] [place] [phone] * Lipase (11/12/2024 8:04 AM EST) Only the most recent of2 resultswithin the time period is included. Lipase 21 8 - 78 U/L [facility] Blood Venous blood specimen / Unknown 11/12/2024 8:04 AM EST 11/12/2024 11:03 AM EST Trevor Medina ANP LAB BLOOD ORDERABLES Final Resul t Performing Organization Address [facility]/ZIP Co de Phone Number [facility] [address] [place] [phone] * Hemoglobin A1c (11/12/2024 8:04 AM EST) Hemoglobin A1c 5.6 <6.0 % [facility] Comment:Hemoglobin A1C Refer ence Range Adults: 4.8 - 6.0 % Non diabetic: < 6.0 % Goal: < 7.0 %Additional Action Suggested: > 8.0 %Note: Hemoglobin A1c results are invalid for patients with abnormal amounts of HbF. Blood transfusions may impact the HbA1c concentration in the patient sample. Estimated Average Glucose 114 mg/dL [facility] Comment:eAG = Estimated ave rage glucose which is %A1C expressed asaverage glucose, using the formula of the J6H-LfjcuttAqmrvzl Glucose study (ADAG), Diabetes Care, Vol.31,#8,2007 Blood Venous blood specimen / Unknown 11/12/2024 8:04 AM EST 11/12/2024 11:03 AM EST Trevor Medina BANNER LAB BLOOD ORDERABLES Final Resul t Performing Organization Address [facility] Co de Phone Number [facility] [address] [place] [phone] * Hepatic Function Panel (11/12/2024 8:04 AM EST) Only the most recent of2 resultswithin the time period is included. Bilirubin, Total 0.7 0.0 - 1.0 mg/dL [facility] Bilirubin, Direct 0.2 0.0 - 0.5 mg/dL [facility] Aspartate Amino Transferase 27 5 - 31 U/L [facility] Alanine Aminotransferase 8 0 - 31 U/L [facility] Total Protein 6.8 6.5 - 8.0 g/dL [facility] Albumin Level 3.6 3.5 - 5.0 g/dL [facility] Alkaline Phosphatase 60 39 - 117 U/L [facility] Blood Venous blood specimen / Unknown 11/12/2024 8:04 AM EST 11/12/2024 11:03 AM EST Trevor Medina [facility] LAB BLOOD ORDERABLES Final Resul t Performing Organization Address City/[facility] Co de Phone Number [facility] [address] [place] [phone] * (ABNORMAL) Lipid Panel, Standard (11/12/2024 8:04 AM EST) Triglycerides 131 <150 mg/dL [facility] Comment:Desirable Triglyceri de: less than 150 mg/dLBorderline High Triglyceride 150-199 mg/dLHigh Triglyceride: 200-499 mg/dLVery High Triglyceride: greater than or equal to 5OO mg/dL Cholesterol 203(H) <200 mg/dL [facility] Comment:Desirable Cholestero l: less than 200 mg/dLBorderline High Cholesterol: 200-239 mg/dLHigh Cholesterol: greater than 239 mg/dL LDL Cholesterol Calculated 124(H) <100 mg/dL [facility] Comment:Desirable LDL: less than 100 mg/dLNear Optimal/Above Optimal LDL: 110- 129 mg/dLBorderline High LDL: 130-159 mg/dLHigh LDL: 160-189 mg/dLVery High LDL: greater than or equal to 190 mg/dL HDL Cholesterol 53 >40 mg/dL [facility] Comment:Desirable HDL: great er than 40 mg/dL Note: This HDL assay may give artificially low results in patients with liver disease. Blood Venous blood specimen / Unknown 11/12/2024 8:04 AM EST 11/12/2024 11:03 AM EST [facility] LAB BLOOD ORDERABLES Final Resul t Performing Organization Address [facility] Co de Phone Number [facility] [address] [place] [phone] * Acetaminophen level (10/27/2024 7:24 PM EST) Pathologist [facility] Acetaminophen LAB <3 <30 mcg/mL [facility] 10/27/2024 7:24 PM EST 10/27/2024 7:26 PM EST [facility] External Data Provider LAB BLOOD ORDERAB LES Final Result Performing Organization Address [facility] de Phone Number [facility] [address] [place] [phone] * Prothrombin Time-INR (10/27/2024 7:23 PM EST) Prothrombin Time 11.9 10.9 - 12.4 SEC [facility] INTERNATIONAL NORM RATIO 1.0 0.9 - 1.1 [facility] Comment:INTERNATIONAL NORMAL IZED RATIO (INR) REFERENCE RANGES Reference RangeFor patients not on anticoagulant therapy: 0.9 - 1.1INR ranges for oral anticoagulanttherapy:For prevention and treatment of venous thrombosis and pulmonary embolism: 2.0 - 3.0For acute myocardial infarction with aspirin therapy: 2.0 - 3.0For acute myocardial infarction without aspirin therapy: 3.0 - 4.0For patients with mechanical prosthetic heart valves: 2.5 - 3.5 10/27/2024 7:23 PM EST 10/27/2024 7:26 PM EST us Generic External Data Provider LAB BLOOD ORDERAB LES Final Result [facility] [address] [place] [phone] * CT Abdomen Pelvis w/ Contrast (10/27/2024 3:19 PM EST) Anatomical Region Laterality Modality Body, Pelvis, Abdomen Computed T omography 10/27/2024 3:19 PM EST Narrative 10/27/2024 4:58 PM EST ? [facility] ?[address] ?[place] [address] ? CT Scan Report ? Signed ? Patient: Afua Hector ?MR#: [id number] ? : 1980 ?Acct:[id number] ? Age/Sex: 44 / F ?ADM Date: 10/27/24 ? Loc: HO.ED ? Attending Dr: ? Ordering Physician: Sondra Soriano ?? Date of Service: 10/27/24 ?? Procedure(s): CT abdomen pelvis w IV con ?? Accession Number(s): [id number] ? cc: Sondra Soriano; TREVOR MEDINA NP ? Report Number: ?? [id number]: Total DLP = ??571.00 mGy-cm ?? EXAMINATION: ?? CT ABDOMEN AND PELVIS WITH CONTRAST ? CLINICAL INFORMATION: ?? Left flank, lower abdominal pain and increased white count. ? COMPARISON: ?? None available. ? TECHNIQUE: ?? Multidetector volumetric images were obtained from the superior aspect ?? of the liver through the pubic symphysis following administration 85 mL ?? of Omnipaque 350 intravenous contrast. Sagittal and coronal reformatted ?? images were obtained on the technologist's workstation. ? Oral contrast: No ? This CT examination was performed using dose optimization techniques as ?? appropriate, variously including the following: ?? *Automated exposure control ?? *Adjustment of mA and/or kV according to patient size (this includes ?? techniques or standardized protocols for targeted exams where dose is ?? matched to indication/reason for exam; i.e. extremities or head) ?? *Use of iterative reconstruction technique ? DLP: ?? 571 mGy-cm ? FINDINGS: ?? LUNG BASES: There is bibasilar atelectasis or scarring. The heart size ?? is normal. ??There is a small hiatal hernia. ? LIVER, GALLBLADDER, AND BILIARY TREE: The liver is normal in size, ?? shape, and attenuation. No focal hepatic lesion or biliary ductal ?? dilatation is present. The gallbladder is surgically absent. ? PANCREAS: Unremarkable. ? SPLEEN: Unremarkable. ? ADRENAL GLANDS: Unremarkable. ? KIDNEYS AND URETERS: The kidneys are normal in size, shape, and ?? attenuation. There is a 1 mm radiopaque calculi nonobstructive mid pole ?? right kidney on coronal image 57/6, unchanged to previous study. No ?? additional radiopaque calculi seen. ? BLADDER: Unremarkable. ? GASTROINTESTINAL TRACT: There is moderate scattered stool and gas seen ?? in colon without distention. The small bowel loops are normal caliber. ?? Appendix is not visualized. There is no inflammatory process seen in ?? the abdomen no free air or free fluid seen. ? ABDOMINAL WALL: There are postsurgical changes along the umbilicus. No ?? hernia seen in the abdominal wall.. ? LYMPH NODES: Normal. ? VASCULAR: Unremarkable. ? PELVIC VISCERA: There is a 2.6 cm right ovarian simple cyst. The uterus ?? is not visualized likely surgically removed. No abnormal size pelvic or ?? inguinal lymph nodes seen. ? OSSEOUS STRUCTURES: Unremarkable. ? CT/CT abdomen pelvis w IV con ?? IMPRESSION: ?? Moderate constipation. No obstruction seen. ? Midline umbilical postsurgical changes likely from hysterectomy. ? Right ovarian 2.6 cm simple cyst. ? Punctate midpole right radiopaque renal calculi, stable. No caliectasis ?? or hydronephrosis. ? Fleischner guidelines were followed. ? Electronically signed by: ??Jayant Hickman MD ??10/27/2024 04:56 PM EST RP ? Dictated By: ?Jayant Hickman MD ? Signed By: ?<Electronically signed by Jayant Hickman MD in OV> ?10/27/246 ? DD/ 1519 ? TD/TT: 10/27/24 1539 ? Manager Spanish: MSM ? Procedure Note Pito Cruz - 10/27/[address] [place] [address] [address] Scan Report Signed Patient: Afua Hector LMR#: [id number] : 1980Acct:[id number] Age/Sex: 44 / FADM Date: 10/27/24 Loc: HO.ED Attending Dr: Ordering Physician: Sondra Soriano Date of Service: 10/27/24 Procedure(s): CT abdomen pelvis w IV con Accession Number(s): [id number] cc: Sondra Soriano; TREVOR MEDINA NP Report Number: [id number]: Total DLP = 571.00 mGy-cm EXAMINATION: CT ABDOMEN AND PELVIS WITH CONTRAST CLINICAL INFORMATION: Left flank, lower abdominal pain and increased white count. COMPARISON: None available. TECHNIQUE: Multidetector volumetric images were obtained from the superior aspect of the liver through the pubic symphysis following administration 85 mL of Omnipaque 350 intravenous contrast. Sagittal and coronal reformatted images were obtained on the technologist's workstation. Oral contrast: No This CT examination was performed using dose optimization techniques as appropriate, variously including the following: *Automated exposure control *Adjustment of mA and/or kV according to patient size (this includes techniques or standardized protocols for targeted exams where dose is matched to indication/reason for exam; i.e. extremities or head) *Use of iterative reconstruction technique DLP: 571 mGy-cm FINDINGS: LUNG BASES: There is bibasilar atelectasis or scarring. The heart size is normal. There is a small hiatal hernia. LIVER, GALLBLADDER, AND BILIARY TREE: The liver is normal in size, shape, and attenuation. No focal hepatic lesion or biliary ductal dilatation is present. The gallbladder is surgically absent. PANCREAS: Unremarkable. SPLEEN: Unremarkable. ADRENAL GLANDS: Unremarkable. KIDNEYS AND URETERS: The kidneys are normal in size, shape, and attenuation. There is a 1 mm radiopaque calculi nonobstructive mid pole right kidney on coronal image 57/6, unchanged to previous study. No additional radiopaque calculi seen. BLADDER: Unremarkable. GASTROINTESTINAL TRACT: There is moderate scattered stool and gas seen in colon without distention. The small bowel loops are normal caliber. Appendix is not visualized. There is no inflammatory process seen in the abdomen no free air or free fluid seen. ABDOMINAL WALL: There are postsurgical changes along the umbilicus. No hernia seen in the abdominal wall.. LYMPH NODES: Normal. VASCULAR: Unremarkable. PELVIC VISCERA: There is a 2.6 cm right ovarian simple cyst. The uterus is not visualized likely surgically removed. No abnormal size pelvic or inguinal lymph nodes seen. OSSEOUS STRUCTURES: Unremarkable. CT/CT abdomen pelvis w IV con IMPRESSION: Moderate constipation. No obstruction seen. Midline umbilical postsurgical changes likely from hysterectomy. Right ovarian 2.6 cm simple cyst. Punctate midpole right radiopaque renal calculi, stable. No caliectasis or hydronephrosis. Fleischner guidelines were followed. Electronically signed by: Jayant Hickman MD 10/27/2024 04:56 PM EST Dictated By: Jayant Hickman MD Signed By: <Electronically signed by Jayant Hickman MD in OV> 10/27/24 1656 DD/ 1519 TD/TT: 10/27/24 1539 Manager Spanish: EDI us [facility] External Provider IMG CT PROCEDURES Final Result * Slide Review (10/27/2024 12:45 PM EST) Slide Review VERIFIED [facility] 10/27/2024 12:4 5 PM EST 10/27/2024 12:48 PM EST Generic External Data Provider LAB BLOOD ORDERAB LES Final Result Performing Organization Address [facility] Co de Phone Number [facility] [address] [place] [phone] * (ABNORMAL) C-reactive Protein (10/27/2024 12:45 PM EST) C Reactive Protein 1.36(H) < or = 0.50 mg/dL [facility] 10/27/2024 12:4 5 PM EST 10/27/2024 12:48 PM EST Generic External Data Provider LAB BLOOD ORDERAB LES Final Result Performing Organization Address [facility] de Phone Number [facility] [address] [place] [phone] * hCG, Total, Quantitative (10/27/2024 12:45 PM EST) HCG Quantitative <2 mIU/mL [facility] Comment:Weeks post LMP Appro ximate hCG(Last Menstrual Period) Range (mIU/ml)3 - 4 weeks 9 - 1304 - 5 weeks 75 - 2,6005 - 6 weeks 850 - 20,8006 - 7 weeks 4000 - 100,2007 - 12 weeks 11,500 - 289,54292 - 16 weeks 18,300 - 137,70267 - 29 weeks (2nd trimester) 1,400 - 53,12869 - 41 weeks (3rd trimester) 940 - 60,000The [place] B- hCG assay is used for the early detection ofpregnancy; it cannot be used to diagnose any conditionunrelated to . If a B-hCG level is not supportedby the clinical evidence, results should be confirmed by analternative method (qualitative urine hCG, for example). 10/27/2024 12:4 5 PM EST 10/27/2024 12:48 PM EST us Generic External Data Provider LAB BLOOD ORDERAB LES Final Result Performing Organization Address City/[facility]/ZIP Co de Phone Number [facility] [address] [place] [phone] * Bilirubin, Direct (10/27/2024 12:45 PM EST) Bilirubin, Direct 0.2 0.0 - 0.5 mg/dL [facility] 10/27/2024 12:4 5 PM EST 10/27/2024 12:48 PM EST Generic External Data Provider LAB BLOOD ORDERAB LES Final Result Performing Organization Address [facility] Co de Phone Number [facility] [address] [place] [phone] * (ABNORMAL) Comprehensive Metabolic Panel (10/27/2024 12:45 PM EST) Sodium 138 135 - 145 mmol/L [facility] Potassium 4.2 3.3 - 5.1 mmol/L [facility] Chloride 106 96 - 108 mmol/L [facility] Carbon Dioxide 26 22 - 29 mmol/L [facility] Anion Gap 10(L) 12 - 20 [facility] Urea Nitrogen (BUN) 6(L) 9 - 16 mg/dL [facility] Creatinine, Serum 0.65 0.5 - 1.4 mg/dL [facility] Creatinine Clr Calc Pharmacy 109.1 [facility] Comment:Provided height and weight: 160.02 cm,81.193 kg.eGFR (calculated from the MDRD study equation) and eCrCl(calculated from the Cockcroft-Gault equation) are based ondifferent parameters and may not yield comparable results.If eCrCl result is absurd, please check patient'sheight/weight. Estimated Glomerular Filt Rate >60 [facility] Comment:Chronic Kidney Disea se: Estimated GFR < 60 mL/min/1.82k9Hfnuil Kidney Disease: Estimated GFR < 15 mL/min/1.73m2 Glucose 102 60 - 115 mg/dL [facility] Calcium 9.3 8.4 - 10.2 mg/dL [facility] Bilirubin, Total 0.9 0.0 - 1.0 mg/dL [facility] Aspartate Amino Transferase 218(H) 5 - 31 U/L [facility] Alanine Aminotransferase 168(H) 0 - 31 U/L [facility] Total Protein 7.3 6.5 - 8.0 g/dL [facility] Albumin Level 3.8 3.5 - 5.0 g/dL [facility] Alkaline Phosphatase 87 39 - 117 U/L [facility] 10/27/2024 12:4 5 PM EST 10/27/2024 12:48 PM EST us Generic External Data Provider LAB BLOOD ORDERAB LES Final Result Performing Organization Address City/State/[facility] Co de Phone Number [facility] [address] [place] [phone] * Urinalysis, Complete, with Reflex to Culture (10/27/2024 12:44 PM EST) Color Urine Yellow [facility] Appearance Urine Clear [facility] PH 5.5 5.0 - 9.0 [facility] Glucose Urine UA Negative Negative mg/dL [facility] Urine Blood Negative Negative [facility] Specific [place] - Urine 1.020 1.005 - 1.025 [facility] Urine Protein Negative Neg-Trace mg/dL [facility] Urine Ketones Negative Negative mg/dL [facility] Nitrite Urine Negative Negative [facility] Leukocyte Esterase Urine Negative Negative [facility] RBC Urine 0-2 0 - 2 /HPF [facility] Urine WBC 0-5 0 - 5 /HPF [facility] Urine Squamous Epithelial Cell 0-2 0 - 2 /HPF [facility] Urine Bacteria None Seen None Seen [facility] Hyaline Casts, Urine 0-2 0 - 2 /LPF [facility] 10/27/2024 12:4 4 PM EST 10/27/2024 12:48 PM EST Narrative [facility] - 10/27/2024 12:58 PM EST 1236Urine, Clean Catch Generic External Data Provider LAB URINE ORDERAB LES Final Result Performing Organization Address [facility]/ZIP Co de Phone Number [facility] [address] [place] [phone] * Hepatitis C Antibody with Reflex to HCV, RNA, Quantitative, Real-Time PCR (11/16/2023 9:23 AM EST) Hepatitis C Antibody Nonreactive Nonreactive [facility] Comment:Antibodies to HCV no t detected; does not exclude early acuteHCV infection. Blood Venous blood specimen / Unknown 11/16/2023 9:23 AM EST 11/16/2023 11:17 AM EST [facility] LAB BLOOD ORDERABLES Final Resul t Performing Organization Address [facility]/ZIP Co de Phone Number [facility] [address] [place] [phone] * HIV Ab/Ag (KIERSTEN ROMAN) (07/12/2023 9:10 AM EDT) HIV AB/AG Nonreactive Nonreactive [facility] Comment:HIV-1 p24 Ag and/or HIV-1/HIV-2 Ab not detected.A test result that is nonreactive does not exclude thepossibility of exposure to or infection with HIV-1 and/orHIV-2. Nonreactive results in this assay for individualswith prior exposure to HIV-1 and/or HIV-2 may be due toantigen and antibody levels that are below the limit ofdetection of this assay.The bookjam HIV Ag/Ab Combo assay result andsupplemental assay results should be interpreted inconjunction with the patient's clinical presentation,history and other laboratory results. If the results areinconsistent with clinical evidence, additional testing issuggested to confirm the result. 07/12/2023 9:10 AM EDT 07/12/2023 11:28 AM EDT [facility] Adam JULES LAB BLOOD ORDERABLES Final Resul t [facility] [address] [place] [phone] * Colonoscopy (12/17/2014) Colonoscopy Normal Normal Historical Provider HEALTH MAINTENANCE Final Result * Pap Smear (12/31/2013) Pap Negative for intraephithelial lesion or malignancy Negative for intraephithelial lesion or malignancy, Other HPV Undetected Undetected, Indeterminate, Quantitative, Not Detected Historical Provider HEALTH MAINTENANCE Final Result from Last 3 Months or Most Recently Relevant to Health Maintenance Insurance [id number] MEDICAID STAND ADULT Care Teams Chrome Worker Relationship Specialty Start Date End Date Trevor Medina ANP [address] [place] [phone] PCP - General Family Medicine 06/20/21 Romeo Echavarria, SUKHWINDER [address] [place] [phone] Transportation EscortCut In Station Operator 12/25/24
--- OUTSIDE RECORDS SUMMARY | 2025-01-10 08:37 | XMS_ITS | Encounter Summary ---
Author Organization [facility] Address [address] [place] [address] Care Team Providers Care Specimen Preparation Assistant Name Role Phone Evy Christopher NP Primary Care Provider [phone] Reason for Referral * Imaging (Routine) - Pending Review Specialty Diagnoses / Procedures Referred By Brennon mao Referred To Contact Radiology Diagnoses Periumbilical abdominal pain Procedures US Abdomen Limited Mily Cardenas MD [address] [address] Phone: tel: fax: [facility] Referral ID Status Reason Start Date Expiration Date V isits Requested Visits Authorized [id number] Pending Review 01/01/2025 01/01/2026 1 1 Reason for Visit * Reason Comments Consult Pain in stomach raffy ia Encounter Details Date Type Department Care Team (Late st Contact Info) Description 01/01/2025 2:30 PM EST Consult Bariatric Surgery - [place] [address] [phone] Mily Cardenas MD [address] [address] Periumbilical abdominal pain (Primary Dx); Gastroesophageal reflux disease, unspecified whether esophagitis present; Hiatal hernia Social History Tobacco Use Types Packs/Day Years [...] not to disclose 2023 8:26 AM EST documented as of this encounter Last Filed Vital Signs Vital Sign Reading Time Taken Comments Blood Pressure 141/94 01/01/2025 2:09 PM EST Pulse 71 01/01/2025 2:09 PM EST Temperature 36.7 ??C (98 ??F) 01/01/2025 2:09 PM EST Respiratory Rate - - Oxygen Saturation 99% 01/01/2025 2:09 PM EST Inhaled Oxygen Concentration - - Weight 84.8 kg (187 lb) 01/01/2025 2:09 PM EST Height 160 cm (5' 3 ) 01/01/2025 2:09 PM EST Body Mass Index 33.13 01/01/2025 2:09 PM EST documented in this encounter Functional Status * Are you deaf or do you have serious difficulty hearing? Answer Date of Assessment Author No 09/22/2024 5:10 PM Fatoumata Carranza RN * Are you blind or do you have serious difficulty seeing, even when wearing glasses? Answer Date of Assessment Author No 09/22/2024 5:10 PM Fatoumata Carranza RN * Do you have serious difficulty walking or climbing stairs? Answer Date of Assessment Author No 09/22/2024 5:10 PM Fatoumata Carranza RN * Do you have serious difficulty dressing or bathing? Answer Date of Assessment Author No 09/22/2024 5:10 PM Fatoumata Carranza RN * Because of a physical, mental, or emotional condition, do you have serious difficulty doing errandsalone such as visiting the doctor? Answer Date of Assessment Author No 09/22/2024 5:10 PM Fatoumata Carranza RN documented as of this encounter Mental Status * Because of a physical, mental, or emotional condition, do you have serious difficulty concentrating, remembering, or making decisions? (5 years old or older) Answer Entry Date Author No 09/22/2024 5:10 PM Fatoumata Carranza RN documented in this encounter Ordered Prescriptions Prescription Sig Dispense Quantity Refills Last Filled Start Date End Date pantoprazole (PROTONIX) 20 mg EC tablet Take 1 tablet (20 mg total) by mouth 1 (one) time each day before breakfast. Do not crush, chew, or split. 30 each 01/01/2025 01/01/2026 documented in this encounter Progress Notes * Mily Cardenas MD - 01/01/2025 2:30 PM EST Acid reflux diet: Avoid acidic foods, tomatoes, red sauces, ketchup, citrus fruits, oranges, ivone, limes, peppers, greasy foods Avoid caffeine (soda, chocolate, coffee) Don't lie down after eating, stay up for a few hours Eat small meals, more often during the day instead of one bigger meal * Mily Cardenas MD - 01/01/2025 2:30 PM EST Referring MD:No ref. provider found Afua Hector is a 44 y.o. year old female who presents for outpatient consultation regarding the management of abdominal pain . The patient is accompanied by her today. States that she has had a colonoscopy and EGD in August 2024 and was told she has a hernia and has had abdominal pain and nausea since then. Pain is worse with greasy foods or spicy foods. Pain occurs as she is eating. Also feels esophagealburning. No such symptoms with liquids. When fasting, also has pain, although somewhat less . Pain is worse with lifting as well. Has a history of constipation, not on any meds. Per her records, it appears that she Had an EGD in Aug at [facility] that shows a Small sliding hiatal hernia. ROS: GENERAL: No significant weight loss or fever HEENT: No nose bleeds or scleral icterus NECK: No cervical or supraclavicular lymphadenopathy RESPIRATORY: No cough or shortness of breath CARDIOVASCULAR: No chest pain or palpitations GI: see HPI SKIN: No lesions, rash, jaundice HEMATOLOGY/LYMPHOLOGY No prolonged bleeding, easy bruisability or swollen nodes PAST MEDICAL HISTORY: Patient Active Problem List Diagnosis Date Noted Acid reflux 09/29/2024 Gastritis 09/29/2024 Asthma 09/29/2024 Benign lipomatous neoplasm 09/29/2024 Nausea 09/29/2024 Pain in right thigh 09/29/2024 Polyp of gallbladder 09/29/2024 Straining with stools 09/29/2024 Class 1 obesity 06/23/2024 Hemorrhoids, internal 06/23/2024 Incisional hernia 06/23/2024 Postoperative pain 06/23/2024 Transaminitis 06/23/2024 Myofascial pain 04/17/2024 Anxiety with depression 03/03/2024 Osteoarthritis of both knees 03/03/2024 Elevated heart rate with elevated blood pressure without diagnosis of hypertension 12/31/2023 YANI (obstructive sleep apnea) 09/11/2023 Sciatica without back pain, right 04/23/2023 LLQ pain 03/07/2023 Urinary tract infection symptoms 03/07/2023 Vitamin D deficiency 11/03/2022 H/O: hysterectomy 07/06/2022 Right ovarian cyst 04/17/2021 Periumbilical abdominal pain 05/13/2020 Prediabetes 01/22/2019 Mild persistent asthma without complication 12/11/2018 Allergic rhinitis 12/03/2015 Anxiety 12/03/2015 Headache 12/03/2015 Hyperlipidemia 12/03/2015 Mastodynia 09/07/2010 PAST SURGICAL HISTORY: Past Surgical History: Procedure Laterality Date BREAST REDUCTION Bilateral 2006 PROCEDURE: UT BREAST REDUCTION BREAST SURGERY 08/2020 PROCEDURE: UT BREAST AUGMENTATION WITH IMPLANT; COMMENT: in [place] CHOLECYSTECTOMY N/A 2013 PROCEDURE: LAPAROSCOPY, CHOLECYSTECTOMY HYSTERECTOMY 02/2018 PROCEDURE: HISTORICAL HYSTERECTOMY; COMMENT: robotic OTHER SURGICAL HISTORY 08/2020 PROCEDURE: HISTORICAL PANNICULECTOMY; COMMENT: Tummy tuck in [place] SALPINGOOPHORECTOMY Left 2016 PROCEDURE: UT LAPAROSCOPY W/RMVL ADNEXAL STRUCTURES; COMMENT: left salpingectomy only TUBAL LIGATION PROCEDURE: HISTORICAL TUBAL LIGATION SOCIAL HISTORY: Social History Tobacco Use Smoking status: Never Smokeless tobacco: Never Substance Use Topics Alcohol use: No FAMILY HISTORY: Family History Problem Relation Name Age of Onset Colon cancer Mother 69.00 Hypertension Mother Arthritis Mother Diabetes Mother Uterine cancer Mother 67.00 hysterectomy 2017 Breast cancer Neg Hx Ovarian cancer Neg Hx Prostate cancer Neg Hx Cervical cancer Neg Hx Family Status Relation Name Status Mother Alive Neg Hx (Not Specified) No partnership data on file ACTIVE MEDICATIONS: No outpatient medications have been marked as taking for the 01/01/25 encounter (Consult) with Mily Cardenas MD. ALLERGIES: Allergies Allergen Reactions Grass Pollen-Red Top, Standard Other Reaction(s): Unknown PHYSICAL EXAM: Vitals: 01/01/25 1409 BP: (!) 141/94 Pulse: 71 Temp: 36.7 ??C (98 ??F) TempSrc: Temporal SpO2: 99% Weight: 84.8 kg (187 lb) Height: 1.6 m (63 ) APPEARANCE: Alert and in no acute distress EYES: conjunctiva and sclera normal. HEART: RRR LUNG: non-labored respirations, patient is comfortable on room air without wheezing or crackles ABDOMEN: soft, non-distended. Tender in the epigastric and supraumbilical area. Abdomen is obese. There does appear to be a faintly palpable mass of approximately 3 cm in size in the supraumbilical area at the site of her tenderness. No overlying skin changes. EXTREMITIES: Extremities warm and well perfused without edema NEURO: Awake, alert and oriented, moves all extremities SKIN: Skin color, texture normal LABS: Lab Results Component Value Date WBC 8.1 12/07/2024 HGB 11.2 (L) 12/07/2024 HCT 35.8 12/07/2024 MCV 94.7 12/07/2024 Lab Results Component Value Date NA 138 12/07/2024 K 4.0 12/07/2024 CO2 27 12/07/2024 CL 105 12/07/2024 BUN 9 12/07/2024 ALKPHOS 68 12/07/2024 IMAGING: EXAMINATION: CT abdomen and pelvis with contrast. CLINICAL INDICATION: History of anemia, constipation dysmenorrhea. Diffuse abdominal pain. COMPARISON: CT abdomen pelvis 09/22/2024. TECHNIQUE: 2.5 mm thin axial and reformatted 3 mm thin sagittal and coronal images of abdomen and pelvis were obtained following IV 90 mL Isovue 370. Scanner: [employer] 64 slice VCT Dose reduction technique: ASIR (Adaptive statistical iterative reconstruction) and/or AEC (automated exposure control) Dose: total exam DLP 967 mGy/cm. FINDINGS: Lung bases: Platelike atelectasis left lung base. Heart size is normal. Liver, ducts and gallbladder: The liver is normal size, contour and density. No intrahepatic ductaldilatation seen. The gallbladder is not visualized. Spleen: Unremarkable. Pancreas: Unremarkable. Adrenal glands: Unremarkable. Kidneys and ureters: Both kidneys are normal size, contour and shape. Millimeters radiopaque calculi midpole right kidney. No additional radiopaque calculi seen. There is no calyectasis or hydronephrosis.. Lymphovascular structures: Abdominal aorta is of normal caliber. There are no vertebral lymph nodesare mass seen. GI tract: There is moderate scattered stool throughout the colon without distention. The small bowel loops are normal caliber. Appendix is not visualized. There is no free air or free fluid. Abdominal wall: Unremarkable. Pelvis: There is a 3.8 cm hypodense lateral lesion right adnexa likely right ovarian cyst [id number] Hounsfield units. Uterus is not visualized likely surgically removed. No free fluid. No abnormalpelvic or inguinal lymph nodes. Osseous structures: No [...] Signed Date: 10/26/2024 13:35 ET Workstation ID: [id number] Transcribed By: Self Edit Transcribed Date: 10/26/2024 13:27 ET IMPRESSION: 1. Periumbilical abdominal pain 2. Gastroesophageal reflux disease, unspecified whether esophagitis present 3. Hiatal hernia Plan: Afua presents with acid reflux and a hiatal hernia. Going over her diet, it appears that she is eating quite a bit of trigger foods such as tomatoes, red sauces with pasta, spicy foods, oranges, chocolate and caffeine. Discussed GERD diet and lifestyle modifications. Recommend weight loss. Will start her on a trial of PPI, and follow-up in 1 month to evaluate for any improvement. Regarding the periumbilical pain, she did have a CAT scan in September 2024, I reviewed the images and do not see any hernia in this location. None mention in the report either. Will do an ultrasound to evaluate the subcutaneous tissue. Perhaps just scar tissue as she did have a panniculectomy, or asmall lipoma. Will call the patient with results. Medication and lab orders: Orders Placed This Encounter Procedures US Abdomen Limited It was a [facility] seeing [facility]. The patient has been instructed to call with any additional questions or concerns. cc: No ref. provider found documented in this encounter Plan of Treatment Upcoming Encounters Date Type Department Care Team (Late st Contact Info) Description 01/15/2025 2:00 PM EDT Office Visit Obstetrics and Gynecology - [place] [address] [place] [address] Tawny Arriaga, [facility] [address] [place] [address] 01/19/2025 7:30 AM EDT Appointment [facility] Ultrasound [address] [place] [phone] 02/02/2025 1:00 PM EDT Office Visit Bariatric [facility] [address] [phone] Mily Cardenas MD [address] [phone] 02/12/2025 8:45 AM EDT Office Visit Bariatric Surgery [facility] [address] [phone] Paul Rod MD [address] [id number] Scheduled Orders Name Type Priority Associated Diagnoses Orde r Schedule US Abdomen Limited Imaging Routine Periumbilical abdominal pain Expected: 01/01/2025, Expires: 01/01/2026 documented as of this encounter Visit Diagnoses Diagnosis Periumbilical abdominal pain- Primary Abdominal pain, periumbilic Gastroesophageal reflux disease, unspecified whether esophagitis present Hiatal hernia Diaphragmatic hernia without mention of obstruction or gangrene documented in this encounter Care Teams Specimen Preparation Assistant Relationship Specialty Start Date End Date Evy Christopher NP [address] [place] [id number] PCP - General 10/26/24 documented as of this encounter
--- OUTSIDE RECORDS SUMMARY | 2025-01-10 08:37 | XMS_ITS ---
Author Organization [facility] Address [address] [place] [phone] Care Team Providers Care Drill Instructor Name Role Phone [facility] N[facility] Primary Care Provider Jada Garrison Jr, Giovany Fitch [phone] REASON FOR VISIT New pt no show Encounters Encounter Location Date Provider Diagnosis [facility] [address] [place] [phone] 08/25/2024 Giovany Garrison Jr Plan Of Treatment No Information Progress Notes * JOSEPH COLINDOB:1980 ([age] yo F)Acc No.[id number]:08/25/2024 Patient:?JOSEPH COLIN :1980???Age:44 Y???Sex:Female Address:[address] [place] [address], [address] * true * Date:? Generated for Elton mccann/Eligio/eTransmitting on:?01/10/2025 08:36 AM EDT
[2025-01-10 08:47] LABS: MANUAL DIFF FLAG NO
[2025-01-10 08:50] LABS: Basophils Absolute Auto 0.1 X10*3/uL (0.0-0.2); Basophils Percent Auto 0.9 % (0-2); Eosinophils Absolute Auto 0.2 X10*3/uL (0.0-0.4); Eosinophils Percent Auto 2.2 % (0-4); Hematocrit 37.9 % (37.0-47.0); Hemoglobin 12.4 g/dl (12.0-16.0); Imm Gran Abs Auto 0.03 X10*3/uL (0.00-0.03); Imm Gran Pct Auto 0.3 % (0.0-0.4); Lymphocytes Absolute Auto 2.3 X10*3/uL (1.2-4.9); Lymphocytes Percent Auto 24.9 % (20-40); Mean Corpuscular HGB Conc 32.7 g/dl (31.0-35.0); Mean Corpuscular Hemoglobin 29.2 pg (27.0-33.0); Mean Corpuscular Volume 89.2 fL (80.0-98.0); Mean Platelet Volume 10.2 fL (9.4-12.3); Monocytes Absolute Auto 0.9 X10*3/uL (0.1-1.2); Monocytes Percent Auto 9.4 % (2-11); Neutrophils Absolute Auto 5.7 x10*3/uL (2.0-8.3); Neutrophils Percent Auto 62.3 % (45-73); Platelet Count 318 X10*3/uL (160-400); Red Blood Count 4.25 X10*6/uL (4.20-5.50); Red Cell Distribution Width 12.5 % (11.0-16.0); White Blood Count 9.2 X10*3/uL (4.8-10.8)
--- NOTE | 2025-01-10 08:58 | ED.ABDPAIN ---
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 Patient reports that initially her pain started off on her right flank which radiates into her right side of her abdomen however states that over the last several days now she has diffuse abdominal pain. She also feels as though her abdomen is distended. She endorses nausea. She was vomiting multiple times yesterday. No diarrhea constipation. Last bowel movements were yesterday. Denies chance of as she had a total hysterectomy. She also had a cholecystectomy, abdominoplasty, and hernia repair. She has been taking Tylenol for her symptoms which has provided her without any relief. Last dose was 2 days ago. No abnormal vaginal discharge. No urinary frequency, urgency, hematuria or dysuria. Denies any other complaints or concerns at this time. MD elicited complaint: abdominal pain Onset (ago): day(s) Pain Consistency: constant Location: diffuse and R flank Quality: aching Exacerbating factors: nothing Relieving factors: nothing Associated symptoms: nausea and vomiting Related Data Home Medications ?Medication ?Instructions ?Recorded ?Confirmed omeprazole 20 mg capsule,delayed 20 mg PO DAILY@0630 10/06/21 01/10/25 release albuterol sulfate 90 mcg/actuation 2 puff inhalation Q4H PRN wheezing 05/09/24 01/10/25 aerosol inhaler (Ventolin HFA) rosuvastatin 40 mg tablet 40 mg PO BEDTIME 05/09/24 01/10/25 cyclobenzaprine 10 mg tablet 10 mg PO BEDTIME PRN muscle spasm 01/10/25 01/10/25 fluoxetine 20 mg capsule 20 mg PO DAILY 01/10/25 01/10/25 meloxicam 15 mg tablet 15 mg PO DAILY 01/10/25 01/10/25 Previous Rx's ?Medication ?Instructions ?Recorded acetaminophen 500 mg tablet 1,000 mg (2 x 500 mg) PO Q6H PRN 05/08/24 (Tylenol Extra Strength) fever or pain #20 tabs Allergies Allergy/AdvReac Type Severity Reaction Status Date / Time No Known Allergies Allergy Verified 01/10/25 08:24 Review of Systems Review of Systems Yes all other systems are reviewed and are negative Constitutional: Reports as per [facility] Past Medical History Medical History Abdominal pain Transaminitis Chronic pain syndrome Fibromyalgia Hyperlipidemia Anxiety History of umbilical hernia Surgical History History of excision of mass History of cholecystectomy History of breast augmentation History of bilateral breast reduction surgery History of abdominoplasty Family History Family History Mother Colon cancer Social History Social History Household Members: Family Housing: House Do you presently have visiting nurse or other home services: No Alcohol intake: never Patient Tobacco Use Status: Never used Tobacco Smoked in Last 30 Days: No Use of substances other than those prescribed or required for medical reasons: No Advance Directives: No Advance Directives Information Provided: No Patient : No service: No Physical Exam ED Vital Signs: Vital Signs - 24 hr 01/10/25 08:23 01/10/25 10:41 01/10/25 12:48 Temperature 98.0 F Pulse Rate 85 63 Respiratory Rate 18 18 18 Blood Pressure 114/70 113/69 Pulse Oximetry 98 99 Oxygen Delivery Method Room Air Room Air 01/10/25 13:25 Temperature Pulse Rate Respiratory Rate 18 Blood Pressure Pulse Oximetry Oxygen Delivery Method BMI result Body Mass Index 32.8 Const General: cooperative, comfortable and no acute distress Orientation/consciousness: patient oriented x3 Limitations: no limitations HENMT Head: Yes normal to inspection, Yes normocephalic and Yes atraumatic Ears: hearing grossly normal bilaterally General nose exam: Normal external nose present Face and sinus: Yes normal facial exam Mouth: Normal oral and palatal mucosa present, oropharynx normal and moist mucous membranes Throat: Yes posterior oropharynx normal Eyes General: appearance normal, both eyes and all related structures Eyelids: Yes eyelids normal Conjunctivae: conjunctivae normal Sclerae: sclerae normal Pupils: Equal, round and reactive pupils present EOM: EOMs intact bilaterally Neck Neck: Yes normal visual inspection, Yes full ROM and Yes no lymphadenopathy Lymphatic: no lymphadenopathy noted Chest Chest palpation & inspection: normal inspection of the chest Resp Effort & Inspection: normal respiratory effort and able to speak in complete sentences Auscultation: clear to auscultation bilaterally, no crackles, no rales, no rhonchi and no wheezes Cardio Rate: regular rate Rhythm: regular rhythm Heart sounds: S1 normal heart sound present and S2 normal heart sound present GI Other: Abdomen is soft, slightly distended, with exquisite tenderness throughout, positive rebound, reporting rebound in right quadrant when left quadrant is palpated. No specific point tenderness on examination - diffuse tenderness throughout. She does have right-sided CVA tenderness. Skin General skin exam: no rashes or lesions noted Trauma: no lacerations or abrasions Wounds: no wounds Neuro General: patient oriented x3 and moves all extremities Cranial nerves: Yes Equal, round and reactive pupils present Extrem General: Yes normal to inspection Right upper extremity: normal to inspection Left upper extremity: normal to inspection Right lower extremity: normal to inspection Left lower extremity: normal to inspection Course Reevaluation(s) Reevaluation #1: Patient complaining of worsening pain, nausea and vomiting, actively vomiting. Ordered Benadryl and Reglan as well as IV Tylenol. Does not appear that Toradol or morphine has helped with her pain. awaiting CT scan results. Time: 11:25 Reevaluation #2: CT scan read as epiglottic appendagitis, in the left upper quadrant related to redundant segment of the sigmoid colon. Patient has been medicated with morphine, Toradol, Tylenol, also medicated with Zofran, Reglan and Benadryl with little to no relief, reporting 9/10 pain. Will medicate with Dilaudid, also will administer 2 L of IV fluids. Will discuss with the hospitalist for admission for intractable abdominal pain. Time: 13:10 Medical Decision Making Medical Decision Making MDM Narrative: This is a 44-year-old [place]ican-speaking female who presents emergency department with concerns for abdominal pain for the last 4 days. On arrival, vital signs within normal limits. She is speaking in full sentences, appears to be mildly uncomfortable secondary to abdominal pain. Patient has tenderness to palpation throughout the entire abdomen, with rebound. No urinary symptoms. Differential diagnoses include small bowel obstruction, gastroenteritis, obstructive uropathy, diverticulitis, diverticulosis. Labs were obtained prior to my assessment, she has no leukocytosis, stable H&H, chemistry revealing no significant electrolyte derangement. No evidence of ALEX. Viral swabs are still pending at this time. Given tenderness to palpation throughout all abdominal quadrants, with rebound, will obtain CT of the pelvis with IV contrast. Will medicate with Toradol and Zofran. Will continue to closely monitor. Differential Diagnosis Differential Diagnoses: The differential diagnosis associated with the presentation includes See above Admission/Observation Consideration of admission/observation: Escalation of care including admission/observation considered Lab Data [facility] Lab Attestation statement: I reviewed the patient's lab results. See MDM 01/10/25 08:41 01/10/25 08:41 Labs: Lab Results 01/10/25 01/10/25 01/10/25 Range/Units 08:41 08:54 11:30 WBC 9.2 (4.8-10.8) X10*3/uL RBC 4.25 (4.20-5.50) X10*6/uL Hgb 12.4 (12.0-16.0) g/dl Hct 37.9 (37.0-47.0) % MCV 89.2 (80.0-98.0) fL MCH 29.2 (27.0-33.0) pg MCHC 32.7 (31.0-35.0) g/dl RDW 12.5 (11.0-16.0) % Plt Count 318 (160-400) X10*3/uL MPV 10.2 (9.4-12.3) fL Immature Gran % (Auto) 0.3 (0.0-0.4) % Neut % (Auto) 62.3 (45-73) % Lymph % (Auto) 24.9 (20-40) % [place] % (Auto) 9.4 (2-11) % Eos % (Auto) 2.2 (0-4) % Baso % (Auto) 0.9 (0-2) % Lymph # (Auto) 2.3 (1.2-4.9) X10*3/uL [place] # (Auto) 0.9 (0.1-1.2) X10*3/uL Eos # (Auto) 0.2 (0.0-0.4) X10*3/uL Baso # (Auto) 0.1 (0.0-0.2) X10*3/uL Abs Immat Gran (auto) 0.03 (0.00-0.03) X10*3/uL Absolute Neuts (auto) 5.7 (2.0-8.3) x10*3/uL Absolute Nucleated RBC 0.000 (0.0-0.012) X10*3/uL Nucleated RBC % (auto) 0.0 (0.0-0.2) /100WBC Sodium 140 (135-145) mmol/L Potassium 4.1 (3.3-5.1) mmol/L Chloride 105 (96-108) mmol/L Carbon Dioxide 27 (22-29) mmol/L Anion Gap 12 (12-20) BUN 9 (9-16) mg/dL Creatinine 0.68 (0.5-1.4) mg/dL Estim Creat Clear Calc 106.1 Estimated GFR > 60 Random Glucose 95 (60-115) mg/dL Calcium 9.3 (8.4-10.2) mg/dL Total Bilirubin 0.9 (0.0-1.0) mg/dL AST 31 (5-31) U/L ALT 16 (0-31) U/L Alkaline Phosphatase 64 (39-117) U/L Total Protein 8.0 (6.5-8.0) g/dL Albumin 4.1 (3.5-5.0) g/dL Lipase 24 (8-78) U/L Urine Color Yellow Urine Appearance Clear Urine pH 5.5 (5.0-9.0) Ur Specific [place] 1.020 (1.005-1.025) Urine Protein Negative (Neg-Trace) mg/dL Urine Glucose (UA) Negative (Negative) mg/dL Urine Ketones Negative (Negative) mg/dL Urine Blood Negative (Negative) Urine Nitrite Negative (Negative) Ur Leukocyte Esterase Negative (Negative) Urine RBC 0-2 (0-2) /HPF Urine WBC 0-5 (0-5) /HPF Ur Squamous Epith Cells 0-2 (0-2) /HPF Urine Bacteria None Seen (None Seen) Hyaline Casts 0-2 (0-2) /LPF Influenza Type A (PCR) NEGATIVE (Negative) Influenza Type B (PCR) NEGATIVE (Negative) RSV RNA Qual (PCR) NEGATIVE (Negative) SARS-CoV-2 RNA (RT-PCR) NEGATIVE (Negative) Radiology Impression Discussion of test interpretation with radiology: I have reviewed the radiologist's reading. Radiologist Impression: CLINICAL HISTORY: diffuse abdominal pain, R flank pain CT abdomen and pelvis with contrast Comparison: CT - CT ABDOMEN PELVIS W IV CON - 01/10/25 09:50 EDT Findings: No consolidation or effusion. The patient is status post cholecystectomy. The liver is otherwise unremarkable. The rest of the solid organs are normal. The patient is status post hysterectomy. There are localized inflammatory changes in the left upper quadrant mesentery related to a redundant segment of the sigmoid colon and most compatible with epiploic appendagitis. The colon is otherwise unremarkable though there is a relatively large stool burden. There is no evidence of appendicitis. Pelvic contents unremarkable. Normal appendix. No acute fracture. The rest of the GI tract is unremarkable. IMPRESSION: Epiploic appendagitis left upper quadrant related to a redundant segment of sigmoid colon. This document has been electronically signed by: Alvarez Estrada MD on 01/10/2025 11:56:18 Dictated By: Alvarez Estrada MD Medications Administered Discontinued Medications Generic Name Dose Route Start Last Admin Trade Name Freq PRN Reason Stop Dose Admin Diphenhydramine HCl 25 mg 01/10/25 11:15 01/10/25 11:25 Diphenhydramine Hcl 50 Mg/Ml Vial IVPUSH 01/10/25 11:16 25 mg ONCE ONE Administration Hydromorphone HCl 1 mg 01/10/25 13:08 01/10/25 13:25 Hydromorphone Hcl 1 Mg/Ml Syringe IVPUSH 01/10/25 13:09 1 mg ONCE ONE Administration Protocol Sodium Chloride 500 mls @ 999 mls/hr 01/10/25 09:37 01/10/25 10:20 Ns IV 01/10/25 10:07 Infused .Q31M ONE Infusion Acetaminophen 1,000 mg in 100 mls @ 400 mls/hr 01/10/25 11:16 01/10/25 11:41 Ofirmev IV 01/10/25 11:30 Infused ONCE ONE Infusion Lactated Ringer's 500 mls @ 1,000 mls/hr 01/10/25 13:09 01/10/25 14:39 Lr IVCONT 01/10/25 13:38 Infused .Q30M ONE Infusion Iohexol 100 ml 01/10/25 09:52 01/10/25 09:53 Iohexol 350 Mg/Ml 100 Ml Infus..Btl IV 01/10/25 09:53 85 ml ONCE ONE Administration Ketorolac Tromethamine 15 mg 01/10/25 09:29 01/10/25 09:40 Ketorolac Tromethamine 15 Mg/Ml Vial IVPUSH 01/10/25 09:30 15 mg ONCE ONE Administration Metoclopramide HCl 10 mg 01/10/25 11:15 01/10/25 11:28 Metoclopramide Hcl 10 Mg/2 Ml Vial IVPUSH 01/10/25 11:16 10 mg ONCE ONE Administration Morphine Sulfate 4 mg 01/10/25 10:30 01/10/25 10:41 Morphine Sulfate 4 Mg/Ml Cartridge IVPUSH 01/10/25 10:31 4 mg ONCE ONE Administration Protocol Ondansetron HCl 4 mg 01/10/25 09:29 01/10/25 09:40 Ondansetron Hcl 4 Mg/2 Ml Vial IVPUSH 01/10/25 09:30 4 mg ONCE ONE Administration Discharge Plan Discharge Clinical Impression: Intractable abdominal pain, Epiploic appendagitis Patient Disposition: Still a Patient Prescriptions: No Action acetaminophen [Tylenol Extra Strength] 500 mg tablet 1,000 mg PO Q6H PRN (Reason: fever or pain) Qty: 20 0RF rosuvastatin 40 mg tablet 40 mg PO BEDTIME albuterol sulfate [Ventolin HFA] 90 mcg/actuation HFA aerosol inhaler 2 puff INHALATION Q4H PRN (Reason: wheezing) cyclobenzaprine 10 mg tablet 10 mg PO BEDTIME PRN (Reason: muscle spasm) meloxicam 15 mg tablet 15 mg PO DAILY fluoxetine 20 mg capsule 20 mg PO DAILY omeprazole 20 mg capsule,delayed release(DR/EC) 20 mg PO DAILY@0630 Print Language: [place] Rican
[2025-01-10 09:09] LABS: Alanine Aminotransferase 16 U/L (0-31); Albumin Level 4.1 g/dL (3.5-5.0); Alkaline Phosphatase 64 U/L (39-117); Anion Gap 12 (12-20); Aspartate Amino Transferase 31 U/L (5-31); Bilirubin Total 0.9 mg/dL (0.0-1.0); Blood Urea Nitrogen 9 mg/dL (9-16); Calcium 9.3 mg/dL (8.4-10.2); Carbon Dioxide 27 mmol/L (22-29); Chloride 105 mmol/L (96-108); Creatinine Clr Calc Pharmacy 106.1; Estimated Glomerular Filt Rate > 60; Glucose Random 95 mg/dL (60-115); Potassium 4.1 mmol/L (3.3-5.1); Sodium 140 mmol/L (135-145)
[2025-01-10] MEDS: Ketorolac Tromethamine 15 MG/ML VIAL IVPUSH ×3 (09:40→21:31)
[2025-01-10] MEDS: ondansetron HCL 4 MG/2 ML VIAL IVPUSH ×2 (09:40→17:26)
[2025-01-10] MEDS: 0.9 % Sodium Chloride 500 ML 999 ML IV (09:42)
[2025-01-10 09:45] LABS: Influenza A PCR NEGATIVE (Negative); Influenza B PCR NEGATIVE (Negative); Resp Syncy Virus RNA Qual PCR NEGATIVE (Negative); SARS COV2 PCR INHOUSE NEGATIVE (Negative)
[2025-01-10 09:52] LABS: Lipase 24 U/L (8-78)
[2025-01-10] MEDS: iohexoL 350 MG/ML 100 ML INFUS..BTL IV (09:53)
[2025-01-10] MEDS: Morphine Sulfate 4 MG/ML CARTRIDGE IVPUSH (10:41)
[2025-01-10] MEDS: diphenhydrAMINE HCL 50 MG/ML VIAL 25 MG IVPUSH (11:25)
[2025-01-10] MEDS: Acetaminophen 1,000 MG/100 ML PIGGYBACK 400 MG IV (11:26)
[2025-01-10] MEDS: Metoclopramide HCl 10 MG/2 ML VIAL IVPUSH (11:28)
[2025-01-10 11:43] LABS: Appearance Urine Clear; Color Urine Yellow; Glucose Urine UA Negative (Negative); Leukocyte Esterase Urine Negative (Negative); Nitrite Urine Negative (Negative); PH 5.5 (5.0-9.0); Urine Blood Negative (Negative); Urine Ketones Negative (Negative); Urine Protein Negative (Neg-Trace)
[2025-01-10 11:46] LABS: Bacteria Urine None Seen (None Seen); Hyaline Casts Urine 0-2 /LPF (0-2); RBC Urine 0-2 /HPF (0-2); Squamous Epithelial Cell Urine 0-2 /HPF (0-2); WBC Urine 0-5 /HPF (0-5)
[2025-01-10] MEDS: HYDROmorphone HCl 1 MG/ML SYRINGE IVPUSH (13:25)
[2025-01-10] MEDS: Lactated Ringers 500 ML 1000 ML IVCONT (13:26)
--- NOTE | 2025-01-10 14:12 | PHA.MEDREC ---
Pharmacy Consult ? Medication Reconciliation Pharmacy has completed the medication reconciliation. Spoke with patient at bedside to confirm meds with [facility] ([facility]). Pt was a poor historian, could not list her medications, but answered yes or no when we went thorugh the list.
--- NOTE | 2025-01-10 14:43 | PC.NURSE ---
Hospitalist at bedside.
--- NOTE | 2025-01-10 15:39 | PM.IMHP ---
History of Present Illness Date of Service: 01/10/25 Attending physician on admission: Abdi [facility] Chief Complaint: abd pain 44 year old female with history of fibromyalgia, chronic pain syndrome, anxiety, hld presented to the ED with complaints of R flank pain radiating across the upper abdoman. Reports symptoms started as a focal sharp pain in the R flank 4 days ago progressively worsening now radiating across the upper abdomen. There is associated nausea. No fevers, chills, vomiting, diarrhea, constipation, dysuria, hematuria, increased urinary frequency or retention. She has never had pain similar to this in the past. She does have a history of cholecystectomy, abdominoplasty. Denies any known sick contacts, eating any bad foods, or recent travel. Since arrival, vital signs have been stable. No leukocytosis. Renal function electrolyte levels are normal. Hepatic function is within normal limits. Urinalysis unremarkable. Negative for COVID-19, RSV. CT of the abdomen/pelvis shows epiploic appendagitis left upper quadrant related to redundant segment of the sigmoid colon. In the ED, has received IV Dilaudid, IV morphine, IV ketorolac, Reglan, Benadryl, Zofran, Tylenol and reports she is still in 9/10 pain. She will be admitted for intractable pain Review of Systems Review of Systems: Yes all other systems are reviewed and are negative [facility] Medical History Abdominal pain Transaminitis Chronic pain syndrome Fibromyalgia Hyperlipidemia Anxiety History of umbilical hernia Family History Mother Colon cancer Surgical History History of excision of mass History of cholecystectomy History of breast augmentation History of bilateral breast reduction surgery History of abdominoplasty Social History Household Members: Spouse and Children Housing: House Do you presently have visiting nurse or other home services: No Alcohol intake: never Patient Tobacco Use Status: Never used Tobacco Smoked in Last 30 Days: No Use of substances other than those prescribed or required for medical reasons: No Currently Displaying Signs/Symptoms of Drug Intoxication Withdrawal: No Have you been hit, kicked, punched, or otherwise hurt by someone within the past year? If so, by whom?: No Do you feel safe in your current relationship?: Yes Is there a partner from a previous relationship who is making you feel unsafe now?: No Are you made to feel afraid or neglected: No Advance Directives: No Advance Directives Information Provided: No Do you have a plan to hurt others: No Plan Recently lost weight without trying: No How much weight loss: Not applicable Eating poorly because of decreased appetite: No Nutrition screen score: 0 Nutrition Risks: No Nutritional Risk Patient : No : No Poor oral hygiene: No service: No Meds Allergies Allergy/AdvReac Type Severity Reaction Status Date / Time No Known Allergies Allergy Verified 01/10/25 08:24 Active Medications: Current Medications Acetaminophen (Acetaminophen 325 Mg Tablet) 650 mg PO Q6H PRN PRN Reason: Pain, Mild 1-3,fever,headache Calcium Carbonate (Calcium Carbonate 750 Mg Tab.Chew) 750 mg PO Q4H PRN PRN Reason: Heartburn Enoxaparin Sodium (Enoxaparin Sodium 40 Mg/0.4 Ml Syringe) 40 mg SUBCUT Q24H [facility] Hydromorphone HCl (Hydromorphone Hcl 1 Mg/Ml Syringe) 0.5 mg IVPUSH Q4H PRN; Protocol PRN Reason: Pain, Severe (Pain Scale 7-10) Ketorolac Tromethamine (Ketorolac Tromethamine 15 Mg/Ml Vial) 15 mg IVPUSH Q6H [facility] Stop: 01/11/25 09:46 Magnesium Hydroxide (Milk Of Magnesia 30 Ml Oral.Susp) 30 ml PO DAILY PRN PRN Reason: Constipation Melatonin (Melatonin 3 Mg Tablet) 6 mg PO BEDTIME PRN PRN Reason: Insomnia Ondansetron HCl (Ondansetron Hcl 4 Mg/2 Ml Vial) 4 mg IVPUSH Q8H PRN PRN Reason: Nausea and Vomiting Oxycodone HCl (Oxycodone Hcl Immed Release 5 Mg Tablet) 5 mg PO Q6H PRN PRN Reason: Pain, Moderate(Pain Scale 4-6) Sodium Chloride (0.9 % Sodium Chloride Flush 3 Ml Syringe) [facility] Medications ?Medication ?Instructions ?Recorded ?Confirmed ?Last Taken ?Type omeprazole 20 mg capsule,delayed 20 mg PO DAILY@0630 10/06/21 01/10/25 01/09/25 History release albuterol sulfate 90 mcg/actuation 2 puff inhalation Q4H PRN wheezing 05/09/24 01/10/25 01/09/25 History aerosol inhaler (Ventolin HFA) rosuvastatin 40 mg tablet 40 mg PO BEDTIME 05/09/24 01/10/25 01/09/25 History cyclobenzaprine 10 mg tablet 10 mg PO BEDTIME PRN muscle spasm 01/10/25 01/10/25 01/09/25 History fluoxetine 20 mg capsule 20 mg PO DAILY 01/10/25 01/10/25 01/09/25 History meloxicam 15 mg tablet 15 mg PO DAILY 01/10/25 01/10/25 01/09/25 History Physical Exam Vital Signs and Narrative: Vital Signs: Last Vital Signs Temp 98.0 F 01/10/25 08:23 Pulse 63 01/10/25 12:48 Resp 18 01/10/25 13:25 BP 113/69 01/10/25 12:48 Pulse Ox 99 01/10/25 12:48 O2 Del Method Room Air 01/10/25 12:48 BMI result Body Mass Index 32.8 Constitutional - Awake and Alert, No apparent distress Eyes - PERRLA, EOMI Cardiovascular - S1S2, RRR, No edema Respiratory - Normal lung expansion, Normal respiratory effort, No respiratory distress, CTA bilaterally Gastrointestinal - diffuse ttp without guarding or rebound. ND; +BS : R CVA tenderness Extremities - no calf tenderness bilaterally, no swelling Skin - Warm/Dry Neurological - Alert & oriented x3 Psychological - Appropriate affect Results Labs 01/11/25 06:42 01/11/25 06:42 Labs: Laboratory Results - last 24 hr 01/10/25 01/10/25 01/10/25 08:41 08:54 11:30 MCV 89.2 MCH 29.2 MCHC 32.7 RDW 12.5 Plt Count 318 MPV 10.2 Immature Gran % (Auto) 0.3 Neut % (Auto) 62.3 Lymph % (Auto) 24.9 [place] % (Auto) 9.4 Eos % (Auto) 2.2 Baso % (Auto) 0.9 Lymph # (Auto) 2.3 [place] # (Auto) 0.9 Eos # (Auto) 0.2 Baso # (Auto) 0.1 Abs Immat Gran (auto) 0.03 Absolute Neuts (auto) 5.7 Absolute Nucleated RBC 0.000 Nucleated RBC % (auto) 0.0 Anion Gap 12 Estim Creat Clear Calc 106.1 Estimated GFR > 60 Random Glucose 95 Calcium 9.3 Total Bilirubin 0.9 AST 31 ALT 16 Alkaline Phosphatase 64 Total Protein 8.0 Albumin 4.1 Lipase 24 Urine Color Yellow Urine Appearance Clear Urine pH 5.5 Ur Specific [place] 1.020 Urine Protein Negative Urine Glucose (UA) Negative Urine Ketones Negative Urine Blood Negative Urine Nitrite Negative Ur Leukocyte Esterase Negative Urine RBC 0-2 Urine WBC 0-5 Ur Squamous Epith Cells 0-2 Urine Bacteria None Seen Hyaline Casts 0-2 Influenza Type A (PCR) NEGATIVE Influenza Type B (PCR) NEGATIVE RSV RNA Qual (PCR) NEGATIVE SARS-CoV-2 RNA (RT-PCR) NEGATIVE Assessment and Plan (1) Epiploic appendagitis: Status: Acute (2) Intractable abdominal pain: Status: Acute Plan 44 year old female with history of fibromyalgia, chronic pain syndrome, anxiety, hld admitted for intractable pain #Intractable pain- etiology unclear, ?r/t epiloic appendagitis -CT of the abdomen/pelvis shows epiploic appendagitis left upper quadrant related to redundant segment of the sigmoid colon -IV hydromorhone and oxycodone prn. Miguel ketorolac -gabapentin 300 mg p.r.n. -monitor symptoms # chronic pain syndrome, fibromyalgia, anxiety -continue cyclobenzaprine, fluoxetine # HLD -statin # GERD -PPI DVT prophylaxis-Lovenox Full code Patient requires inpatient stay at least 2 midnights for management of intractable pain requiring IV pain medications Quality Stroke Does the patient have a stroke diagnosis?: No VTE Prior VTE?: No VTE Risk Level:: Medical - moderate - high VTE Device Contraindication: Treatment Not Indicated VTE Drug Contraindication: N/A - Med Ordered
[2025-01-10] MEDS: Enoxaparin Sodium 40 MG/0.4 ML SYRINGE SUBCUT (15:46)
[2025-01-10] MEDS: 0.9 % Sodium Chloride Flush 3 ML SYRINGE IVFLUSH ×2 (15:47→20:37)
[2025-01-10] MEDS: Gabapentin 300 MG CAPSULE PO ×2 (16:14→20:34)
[2025-01-10] MEDS: HYDROmorphone HCl 1 MG/ML SYRINGE 0.5 MG IVPUSH ×2 (17:32→21:31)
[2025-01-10] MEDS: oxyCODONE HCl Immed Release 5 MG TABLET PO (20:34)
[2025-01-10] MEDS: Atorvastatin Calcium 80 MG TABLET PO (20:34)
[2025-01-11] MEDS: HYDROmorphone HCl 1 MG/ML SYRINGE 0.5 MG IVPUSH ×3 (01:31→11:52)
[2025-01-11] MEDS: ondansetron HCL 4 MG/2 ML VIAL IVPUSH ×2 (01:37→09:11)
[2025-01-11] MEDS: Ketorolac Tromethamine 15 MG/ML VIAL IVPUSH ×2 (03:43→08:52)
[2025-01-11 05:22] VITALS: BP 100/59; PULSE 72; RESP 16; TEMP 36.4; O2SAT 96
[2025-01-11] MEDS: Omeprazole 20 MG CAPSULE.DR PO (05:31)
[2025-01-11] MEDS: oxyCODONE HCl Immed Release 5 MG TABLET PO (05:33)
[2025-01-11 07:10] LABS: MANUAL DIFF FLAG NO
[2025-01-11 07:13] LABS: Basophils Absolute Auto 0.1 X10*3/uL (0.0-0.2); Basophils Percent Auto 0.9 % (0-2); Eosinophils Absolute Auto 0.2 X10*3/uL (0.0-0.4); Eosinophils Percent Auto 2.5 % (0-4); Hematocrit 33.6 % (37.0-47.0); Hemoglobin 10.9 g/dl (12.0-16.0); Imm Gran Abs Auto 0.03 X10*3/uL (0.00-0.03); Imm Gran Pct Auto 0.5 % (0.0-0.4); Lymphocytes Absolute Auto 1.9 X10*3/uL (1.2-4.9); Lymphocytes Percent Auto 29.1 % (20-40); Mean Corpuscular HGB Conc 32.4 g/dl (31.0-35.0); Mean Corpuscular Hemoglobin 29.2 pg (27.0-33.0); Mean Corpuscular Volume 90.1 fL (80.0-98.0); Monocytes Absolute Auto 0.8 X10*3/uL (0.1-1.2); Monocytes Percent Auto 12.3 % (2-11); Neutrophils Absolute Auto 3.6 x10*3/uL (2.0-8.3); Neutrophils Percent Auto 54.7 % (45-73); Platelet Count 272 X10*3/uL (160-400); Red Blood Count 3.73 X10*6/uL (4.20-5.50); Red Cell Distribution Width 12.2 % (11.0-16.0); White Blood Count 6.5 X10*3/uL (4.8-10.8)
[2025-01-11 07:17] VITALS: BP 137/62; PULSE 62; RESP 18; TEMP 36; O2SAT 94
[2025-01-11] MEDS: 0.9 % Sodium Chloride Flush 3 ML SYRINGE IVFLUSH (07:31)
[2025-01-11 07:37] LABS: Anion Gap 10 (12-20); Blood Urea Nitrogen 10 mg/dL (9-16); Calcium 8.6 mg/dL (8.4-10.2); Carbon Dioxide 27 mmol/L (22-29); Chloride 108 mmol/L (96-108); Creatinine Clr Calc Pharmacy 109.3; Estimated Glomerular Filt Rate > 60; Glucose Random 82 mg/dL (60-115); Potassium 4.3 mmol/L (3.3-5.1); Sodium 141 mmol/L (135-145)
[2025-01-11] MEDS: Gabapentin 300 MG CAPSULE PO (10:09)
[2025-01-11] MEDS: FLUoxetine HCl 20 MG CAPSULE PO (10:09)
--- NOTE | 2025-01-11 11:07 | MHC.CM.PN ---
Addendum entered by Evelyn Clarke RN 01/11/25 12:16: PATIENT MEDICALLY CLEARED FOR DC HOME SELF CARE. Original Note: CM ASSESSMENT COMPLETED W/ [employer] OP ASSISTANCE. PATIENT LIVES IN A HOME W/ . AMBULATES W/ WALKER PRN FOR PAIN. OTHERWISE INDEPENDENT. PCP TREVOR MEDINA NP REPORTS SHE HAS AN HCP LISTING HER , [facility], [facility]. COPY REQUESTED. DP: HOME SELF CARE, TRANSPORT. CM WILL CONTINUE TO FOLLOW.
--- NOTE | 2025-01-11 11:21 | P.DS_ITS ---
DS: Providers Provider Date of admission: 01/10/25 15:34 Primary care physician: Evy Christopher NP DS: Diagnosis Discharge Diagnosis (1) Epiploic appendagitis: Status: Acute (2) Intractable abdominal pain: Status: Acute DS: Summary Hospital Course Hospital Course: admission hpi 44 year old female with history of fibromyalgia, chronic pain syndrome, anxiety, hld presented to the ED with complaints of R flank pain radiating across the upper abdoman. Reports symptoms started as a focal sharp pain in the R flank 4 days ago progressively worsening now radiating across the upper abdomen. There is associated nausea. No fevers, chills, vomiting, diarrhea, constipation, dysuria, hematuria, increased urinary frequency or retention. She has never had pain similar to this in the past. She does have a history of cholecystectomy, abdominoplasty. Denies any known sick contacts, eating any bad foods, or recent travel. Since arrival, vital signs have been stable. No leukocytosis. Renal function electrolyte levels are normal. Hepatic function is within normal limits. Urinalysis unremarkable. Negative for COVID-19, RSV[address] CT of the abdomen/pelvis shows epiploic appendagitis left upper quadrant related to redundant segment of the sigmoid colon. In the ED, has received IV Dilaudid, IV morphine, IV ketorolac, Reglan, Benadryl, Zofran, Tylenol and reports she is still in 9/10 pain. She will be admitted for intractable pain Hospital course: Patient was admited and treated conservatively with pain medication, and antiemtic and felt better the next day and tolerated diet and asked to go home. Time Attestation Discharge Coordination Time (in mins): 35 Quality: Safe Use of Opioids Does Pt have an Active Cancer Diagnosis on the Problem List?: No Quality: Stroke Does the patient have a stroke diagnosis?: No Physical Exam Vital Signs: Vital Signs: Last Vital Signs Temp 96.8 F 01/11/25 07:17 Pulse 62 01/11/25 07:17 Resp 18 01/11/25 07:17 BP 137/62 01/11/25 07:17 Pulse Ox 94 01/11/25 07:17 O2 Del Method Room Air 01/11/25 07:17 BMI result Body Mass Index 32.8 Const: Other: General: AO X 3, no acute distress Resp: CTA bilateral CVS: S1,S2,RRR GI: +BS, NT, no distention Skin: No rash Neuro: motor grossly intact Psych: appropriate affect DS: Data Data Completed and Pending Labs on day of discharge: Laboratory Results - last 24 hr 01/10/25 01/11/25 11:30 06:42 WBC 6.5 RBC 3.73 L Hgb 10.9 L Hct 33.6 L MCV 90.1 MCH 29.2 MCHC 32.4 RDW 12.2 Plt Count 272 MPV 10.0 Immature Gran % (Auto) 0.5 H Neut % (Auto) 54.7 Lymph % (Auto) 29.1 [facility] % (Auto) 12.3 H Eos % (Auto) 2.5 Baso % (Auto) 0.9 Lymph # (Auto) 1.9 [facility] # (Auto) 0.8 Eos # (Auto) 0.2 Baso # (Auto) 0.1 Abs Immat Gran (auto) 0.03 Absolute Neuts (auto) 3.6 Absolute Nucleated RBC 0.000 Nucleated RBC % (auto) 0.0 Sodium 141 Potassium 4.3 Chloride 108 Carbon Dioxide 27 Anion Gap 10 L BUN 10 Creatinine 0.66 Estim Creat Clear Calc 109.3 Estimated GFR > 60 Random Glucose 82 Calcium 8.6 D Urine Color Yellow Urine Appearance Clear Urine pH 5.5 Ur Specific [place] 1.020 Urine Protein Negative Urine Glucose (UA) Negative Urine Ketones Negative Urine Blood Negative Urine Nitrite Negative Ur Leukocyte Esterase Negative Urine RBC 0-2 Urine WBC 0-5 Ur Squamous Epith Cells 0-2 Urine Bacteria None Seen Hyaline Casts 0-2 Discharge Plan Discharge Patient Disposition: Home, Self-Care Discharge Diagnosis: Abdominal pain due to epiploic appendagitis left upper quadrant Referrals: Evy Christopher FAMILY LIFE COUNSELOR [Primary Care Provider] - 1 Week Discharge Medications: New oxycodone 5 mg Tablet 5 mg PO Q6H PRN (Reason: Pain, Moderate(Pain Scale 4-6)) Qty: 16 0RF Rx Instructions: Partial Fill upon patient request. ibuprofen [Motrin IB] 200 mg capsule 600 mg PO Q6H PRN (Reason: pain (scale score 4-6)) Qty: 30 0RF ondansetron 4 mg tablet,disintegrating 4 mg PO Q8H PRN (Reason: nausea and vomiting) Qty: 15 0RF Continued acetaminophen [Tylenol Extra Strength] 500 mg tablet 1,000 mg PO Q6H PRN (Reason: fever or pain) Qty: 20 0RF rosuvastatin 40 mg tablet 40 mg PO BEDTIME albuterol sulfate [Ventolin HFA] 90 mcg/actuation HFA aerosol inhaler 2 puff INHALATION Q4H PRN (Reason: wheezing) cyclobenzaprine 10 mg tablet 10 mg PO BEDTIME PRN (Reason: muscle spasm) meloxicam 15 mg tablet 15 mg PO DAILY fluoxetine 20 mg capsule 20 mg PO DAILY omeprazole 20 mg capsule,delayed release(DR/EC) 20 mg PO DAILY@0630 Diet: Advance to usual diet Activity on Discharge: As tolerated Stand Alone Forms: Patient Portal Discharge page Print Language: Macedonian Care Plan Goals: recovery from abdominal pain d/t epiploic appendagitis Health Concerns: epiploic appendagitis left upper quadrant related to redu Plan of Treatment: take pain medication (motrin and oxycodone) and nausea medication as needed and follow up with your Doctor in a week, call for appointment tomorrow Assessment: see above
[2025-01-11 12:50] VITALS: BP 120/76; PULSE 72; RESP 18; TEMP 36.2; O2SAT 95
== END 2025-01-11 12:47 | disposition home or self-care (01) | DRG 254 ==
LOC: HO.ED 13:18 → HO.EDOVER 15:38 → HO.S3 16:41
PROVIDERS: Physician Assistant Medical; Admitting Provider Physician Assistant; Emergency Provider Emergency Medicine; PCP Nurse Practitioner Primary Care; Visit Provider Internal Medicine
DX: K63.89 Other specified diseases of intestine (principal); F41.9 Anxiety disorder, unspecified; G89.4 Chronic pain syndrome; M79.7 Fibromyalgia; K21.9 Gastro-esophageal reflux disease without esophagitis; Z20.822 Contact with and (suspected) exposure to COVID-19; Z79.899 Other long term (current) drug therapy
CPT/HCPCS: 0241U; 36415; 74177; 80048; 80053; 81001; 83690; 85025; 99285; J0131; J1171; J1200; J1650; J1885; J2270; J2405; J2765; J7120; Q9967

== ENCOUNTER → 2025-01-10 09:35 | Outpatient (BNV) | payer MEDICAID, SELFPAY | PROVIDERS: Emergency Provider Emergency Medicine; PCP Nurse Practitioner Primary Care; Visit Provider Radiology Diagnostic Radiology | DX: K38.8 Other specified diseases of appendix (principal) | CPT/HCPCS: 74177 ==

== ENCOUNTER → 2025-01-10 15:34 | Outpatient (BNV) | payer MEDICAID, SELFPAY | PROVIDERS: Admitting Provider Physician Assistant; Emergency Provider Emergency Medicine; PCP Nurse Practitioner Primary Care; Visit Provider Physician Assistant | DX: K63.89 Other specified diseases of intestine (principal); R10.9 Unspecified abdominal pain | CPT/HCPCS: 99223 ==

== ENCOUNTER 2025-01-12 17:10 | Emergency (ER) | payer MEDICAID, SELFPAY ==
[2025-01-12 17:20] VITALS: BP 152/93; PULSE 82; RESP 20; TEMP 37; O2SAT 99; BMI 30.2
--- NOTE | 2025-01-12 17:21 | ED_ITS ---
HPI - General Adult General Chief complaint: Nausea/Vomiting/Diarrhea Stated complaint: vomiting, nausea, pain Time Seen by Provider: 01/12/25 23:37 History of Present Illness ED Provider: Georgina CAMPO narrative: The patient is a 44-year-old woman who was discharged from the hospital yesterday on Sunday. She had come to the hospital on the morning of SundayJanuary 10. She had presented with 4 days of abdominal pain associated with nausea and vomiting. She had a workup including a CT of the abdomen and pelvis. This CT indicated that she had epiploic appendagitis of her sigmoid colon. She was hospitalized and kept overnight and discharged yesterday at around noon. Her discharge medications included oxycodone, ibuprofen, and ondansetron. She says that after she was discharged from the hospital she fill these prescriptions and try to use them to manage her symptoms at home but that she had worsening abdominal pain and nausea and vomiting. She says that she went to her primary care doctor's office today was told to try to eat very little and to continue the medications but she felt very bad and returned to the hospital tonight. No definite fever. Related Data Home Medications ?Medication ?Instructions ?Recorded ?Confirmed omeprazole 20 mg capsule,delayed 20 mg PO DAILY@0630 10/06/21 01/10/25 release albuterol sulfate 90 mcg/actuation 2 puff inhalation Q4H PRN wheezing 05/09/24 01/10/25 aerosol inhaler (Ventolin HFA) rosuvastatin 40 mg tablet 40 mg PO BEDTIME 05/09/24 01/10/25 cyclobenzaprine 10 mg tablet 10 mg PO BEDTIME PRN muscle spasm 01/10/25 01/10/25 fluoxetine 20 mg capsule 20 mg PO DAILY 01/10/25 01/10/25 meloxicam 15 mg tablet 15 mg PO DAILY 01/10/25 01/10/25 Previous Rx's ?Medication ?Instructions ?Recorded acetaminophen 500 mg tablet 1,000 mg (2 x 500 mg) PO Q6H PRN 05/08/24 (Tylenol Extra Strength) fever or pain #20 tabs ibuprofen 200 mg capsule (Motrin 600 mg (3 x 200 mg) PO Q6H PRN 01/11/25 IB) pain (scale score 4-6) #30 caps ondansetron 4 mg disintegrating 4 mg PO Q8H PRN nausea and 01/11/25 tablet vomiting #15 tabs oxycodone 5 mg tablet 5 mg PO Q6H PRN Pain, 01/11/25 Moderate(Pain Scale 4-6) #16 tabs Allergies Allergy/AdvReac Type Severity Reaction Status Date / Time No Known Allergies Allergy Verified 01/12/25 17:24 [facility] Past Medical History Medical History Abdominal pain Transaminitis Chronic pain syndrome Fibromyalgia Hyperlipidemia Anxiety History of umbilical hernia Surgical History History of excision of mass History of cholecystectomy History of breast augmentation History of bilateral breast reduction surgery History of abdominoplasty Family History Family History Mother Colon cancer Social History Social History Household Members: Spouse and Children Housing: House Do you presently have visiting nurse or other home services: No Alcohol intake: never Patient Tobacco Use Status: Never used Tobacco Advance Directives: No Advance Directives Information Provided: Yes service: No Physical Exam ED Vital Signs: Vital Signs - 24 hr 01/12/25 17:20 Temperature 98.6 F Pulse Rate 82 Respiratory Rate 20 Blood Pressure 152/93 H Pulse Oximetry 99 Oxygen Delivery Method Room Air BMI result Body Mass Index 30.2 Const Other: The patient was awake and alert. She looked as if she was upset. The patient was primarily [place] speaking and she was interviewed using a teleinterpreter. HENMT Other: Face was symmetrical. Mucous membranes moist. Eyes General: appearance normal, both eyes and all related structures Neck Neck: Yes normal visual inspection and Yes full ROM Resp Effort & Inspection: normal respiratory effort Auscultation: clear to auscultation bilaterally Cardio Rate: regular rate Rhythm: regular rhythm Heart sounds: S1 normal heart sound present and S2 normal heart sound present GI Other: The abdomen was soft. There was diffuse tenderness. No focal rebound or guarding. Skin Other: The skin was dry and unremarkable Neuro Other: The patient was awake and alert. Cranial nerves are grossly intact. She seemed to move her extremities symmetrically. Extrem General: Yes normal to inspection Course Course Course Narrative: This is a rapid medical exam performed by Isa Shah NP: Additional HPI, ROS, PE not included below will be deferred to primary provider. Patient is a 44-year-old [place] speaking female presenting with complaint of ongoing abdominal pain, nausea and vomiting. Seen here 01/10, CT showed epiploic appendagitis in [place]. Went to urgent care today and referred back to the ED. Plan: labs, UA Medical Decision Making Medical Decision Making [facility] Narrative: The patient is a 44-year-old woman who was discharged from the hospital yesterday after an overnight hospitalization for symptom control of her abdominal symptoms. She had had a CT scan of the abdomen and pelvis 3 days ago that was consistent with epiploic appendagitis of the sigmoid colon. She was discharged from the hospital yesterday with a prescription for oxycodone, ibuprofen, and ondansetron. She returns because she felt that these medications were not sufficiently controlling her symptoms and that she was vomiting. The patient had labs today that included a normal white count of 8.9, hemoglobin of 11.6, a platelet count of 286, the differential on the white count was normal. She had an unremarkable basic metabolic panel. LFTs showed a mild transaminitis with an AST of 51 and an ALT of 38. C-reactive protein was mildly elevated at 1.65. Lipase was mildly elevated at 113. I had told the patient that I will be ordering medications for symptom control. I had explained that she had previously been diagnosed with epiploic appendagitis and that this is not usually a condition that requires surgery or other specific intervention. I was surprised when I was informed by the patient's nurse that the patient had left not long after my evaluation. The patient therefore left the emergency room without completing treatment. Lab Data 01/12/25 17:41 01/12/25 17:41 Labs: Lab Results 01/12/25 Range/Units 17:41 WBC 8.9 (4.8-10.8) X10*3/uL RBC 4.01 L (4.20-5.50) X10*6/uL Hgb 11.6 L (12.0-16.0) g/dl Hct 36.1 L (37.0-47.0) % MCV 90.0 (80.0-98.0) fL MCH 28.9 (27.0-33.0) pg MCHC 32.1 (31.0-35.0) g/dl RDW 12.2 (11.0-16.0) % Plt Count 286 (160-400) X10*3/uL MPV 9.8 (9.4-12.3) fL Immature Gran % (Auto) 0.4 (0.0-0.4) % Neut % (Auto) 64.7 (45-73) % Lymph % (Auto) 23.8 (20-40) % [place] % (Auto) 8.5 (2-11) % Eos % (Auto) 2.0 (0-4) % Baso % (Auto) 0.6 (0-2) % Lymph # (Auto) 2.1 (1.2-4.9) X10*3/uL [place] # (Auto) 0.8 (0.1-1.2) X10*3/uL Eos # (Auto) 0.2 (0.0-0.4) X10*3/uL Baso # (Auto) 0.1 (0.0-0.2) X10*3/uL Abs Immat Gran (auto) 0.04 H (0.00-0.03) X10*3/uL Absolute Neuts (auto) 5.8 (2.0-8.3) x10*3/uL Absolute Nucleated RBC 0.000 (0.0-0.012) X10*3/uL Nucleated RBC % (auto) 0.0 (0.0-0.2) /100WBC Sodium 141 (135-145) mmol/L Potassium 4.1 (3.3-5.1) mmol/L Chloride 106 (96-108) mmol/L Carbon Dioxide 29 (22-29) mmol/L Anion Gap 10 L (12-20) BUN 9 (9-16) mg/dL Creatinine 0.70 (0.5-1.4) mg/dL Estim Creat Clear Calc 110.2 Estimated GFR > 60 Random Glucose 89 (60-115) mg/dL Calcium 9.3 D (8.4-10.2) mg/dL Magnesium 1.8 (1.6-2.6) mg/dL Total Bilirubin 0.7 (0.0-1.0) mg/dL AST 51 H (5-31) U/L ALT 38 H (0-31) U/L Alkaline Phosphatase 70 (39-117) U/L C-Reactive Protein 1.65 H (< or = 0.50) mg/dL Total Protein 7.6 (6.5-8.0) g/dL Albumin 4.0 (3.5-5.0) g/dL Lipase 113 H (8-78) U/L Beta HCG, Quant < 2 mIU/mL Ethyl Alcohol < 10 mg/dL Discharge Plan Discharge Clinical Impression: Abdominal pain Patient Disposition: Left W/O Completing Treatment Prescriptions: No Action acetaminophen [Tylenol Extra Strength] 500 mg tablet 1,000 mg PO Q6H PRN (Reason: fever or pain) Qty: 20 0RF rosuvastatin 40 mg tablet 40 mg PO BEDTIME albuterol sulfate [Ventolin HFA] 90 mcg/actuation HFA aerosol inhaler 2 puff INHALATION Q4H PRN (Reason: wheezing) cyclobenzaprine 10 mg tablet 10 mg PO BEDTIME PRN (Reason: muscle spasm) meloxicam 15 mg tablet 15 mg PO DAILY fluoxetine 20 mg capsule 20 mg PO DAILY oxycodone 5 mg Tablet 5 mg PO Q6H PRN (Reason: Pain, Moderate(Pain Scale 4-6)) Qty: 16 0RF Rx Instructions: Partial Fill upon patient request. ibuprofen [Motrin IB] 200 mg capsule 600 mg PO Q6H PRN (Reason: pain (scale score 4-6)) Qty: 30 0RF ondansetron 4 mg tablet,disintegrating 4 mg PO Q8H PRN (Reason: nausea and vomiting) Qty: 15 0RF omeprazole 20 mg capsule,delayed release(DR/EC) 20 mg PO DAILY@0630 Discharge Date/Time: 01/13/25 00:50
[2025-01-12 17:45] LABS: MANUAL DIFF FLAG NO
[2025-01-12 17:46] LABS: Basophils Absolute Auto 0.1 X10*3/uL (0.0-0.2); Basophils Percent Auto 0.6 % (0-2); Eosinophils Absolute Auto 0.2 X10*3/uL (0.0-0.4); Hematocrit 36.1 % (37.0-47.0); Hemoglobin 11.6 g/dl (12.0-16.0); Imm Gran Abs Auto 0.04 X10*3/uL (0.00-0.03); Imm Gran Pct Auto 0.4 % (0.0-0.4); Lymphocytes Absolute Auto 2.1 X10*3/uL (1.2-4.9); Lymphocytes Percent Auto 23.8 % (20-40); Mean Corpuscular HGB Conc 32.1 g/dl (31.0-35.0); Mean Corpuscular Hemoglobin 28.9 pg (27.0-33.0); Mean Platelet Volume 9.8 fL (9.4-12.3); Monocytes Absolute Auto 0.8 X10*3/uL (0.1-1.2); Monocytes Percent Auto 8.5 % (2-11); Neutrophils Absolute Auto 5.8 x10*3/uL (2.0-8.3); Neutrophils Percent Auto 64.7 % (45-73); Platelet Count 286 X10*3/uL (160-400); Red Blood Count 4.01 X10*6/uL (4.20-5.50); Red Cell Distribution Width 12.2 % (11.0-16.0); White Blood Count 8.9 X10*3/uL (4.8-10.8)
[2025-01-12 17:59] LABS: Alanine Aminotransferase 38 U/L (0-31); Alkaline Phosphatase 70 U/L (39-117); Anion Gap 10 (12-20); Aspartate Amino Transferase 51 U/L (5-31); Bilirubin Total 0.7 mg/dL (0.0-1.0); Blood Urea Nitrogen 9 mg/dL (9-16); Calcium 9.3 mg/dL (8.4-10.2); Carbon Dioxide 29 mmol/L (22-29); Chloride 106 mmol/L (96-108); Creatinine Clr Calc Pharmacy 110.2; Estimated Glomerular Filt Rate > 60; Glucose Random 89 mg/dL (60-115); Lipase 113 U/L (8-78); Magnesium 1.8 mg/dL (1.6-2.6); Potassium 4.1 mmol/L (3.3-5.1); Sodium 141 mmol/L (135-145); Total Protein 7.6 g/dL (6.5-8.0)
[2025-01-13 00:22] LABS: C Reactive Protein 1.65 mg/dL (< or = 0.50); Ethanol < 10 mg/dL
[2025-01-13 00:43] LABS: HCG Quantitative < 2 mIU/mL
--- NOTE | 2025-01-13 00:44 | PC.NURSE ---
Provider into assess pt, attempted to medicate pt, when left with out complete treatment, medication return to pyxis.
--- NOTE | 2025-01-13 00:49 | PC.NURSE ---
pt left with notifying this RN
== END 2025-01-13 00:50 | disposition left against medical advice (07) ==
PROVIDERS: Registered Nurse Emergency; Emergency Provider Emergency Medicine
DX: R11.2 Nausea with vomiting, unspecified (principal); Z51.81 Encounter for therapeutic drug level monitoring; Z79.899 Other long term (current) drug therapy
CPT/HCPCS: 36415; 80053; 80307; 83690; 83735; 84702; 85025; 86140; 99283; 99284

== ENCOUNTER 2025-02-05 09:12 | Emergency (ER) | payer MEDICAID, SELFPAY ==
--- NOTE | ~2025-02-05 | XR_ITS ---
EXAMINATION: XR CHEST CLINICAL INFORMATION: SOB COMPARISON: June 23, 2024. TECHNIQUE: 2 views of the chest were obtained. FINDINGS: No consolidation, pleural effusion or pneumothorax. Cardiomediastinal silhouette size is normal. Osseous structures are intact. XR/XR chest 2V IMPRESSION: No acute airspace disease. Stable chest. Electronically signed by: Angel Hull MD 02/05/2025 10:10 AM EDT
[2025-02-05 09:15] VITALS: BP 134/89; PULSE 103; RESP 22; TEMP 36.1; O2SAT 99; BMI 32.7
--- NOTE | 2025-02-05 10:08 | ED_ITS ---
HPI - Asthma General Chief Complaint: Asthma Stated Complaint: asthma Time Seen by Provider: 02/05/25 10:05 Source: patient and RN notes reviewed Mode of arrival: ambulatory Limitations: language barrier (Understands an elementary level of Kazakh but formal diplomatic interpreter/translator used in person) History of Present Illness ED Provider: Sara Ortiz PA-C HPI Narrative: Patient comes to the emergency department today concerned of worsening asthma. She does however report infectious symptoms such as nasal congestion sore throat and a dry cough. Been happening for the last 3 days now. She has not had an inhaler for the last year during not having issues with it. She is scheduled to see her primary care this coming Sunday 3 days from now. She has not experienced any both chills and body aches. She has no joint her tongue does feel dry but denies any increased thirst or polyuria. She has not had any symptoms or abdominal discomfort she does not feel nauseous no vomiting no diarrhea no sick contacts or travel. She has tried OTC Tylenol and cold medicine including cough but does not seem to give her any relief. She does not feel the need to gasp for air but would like to have her asthma readdressed here today just in case. Slight decrease in appetite but still drinking and voiding regularly. MD complaint: wheezing Related Data Home Medications ?Medication ?Instructions ?Recorded ?Confirmed omeprazole 20 mg capsule,delayed 20 mg PO DAILY@0630 10/06/21 01/10/25 release albuterol sulfate 90 mcg/actuation 2 puff inhalation Q4H PRN wheezing 05/09/24 01/10/25 aerosol inhaler (Ventolin HFA) rosuvastatin 40 mg tablet 40 mg PO BEDTIME 05/09/24 01/10/25 cyclobenzaprine 10 mg tablet 10 mg PO BEDTIME PRN muscle spasm 01/10/25 01/10/25 fluoxetine 20 mg capsule 20 mg PO DAILY 01/10/25 01/10/25 meloxicam 15 mg tablet 15 mg PO DAILY 01/10/25 01/10/25 Previous Rx's ?Medication ?Instructions ?Recorded acetaminophen 500 mg tablet 1,000 mg (2 x 500 mg) PO Q6H PRN 05/08/24 (Tylenol Extra Strength) fever or pain #20 tabs ibuprofen 200 mg capsule (Motrin 600 mg (3 x 200 mg) PO Q6H PRN 01/11/25 IB) pain (scale score 4-6) #30 caps ondansetron 4 mg disintegrating 4 mg PO Q8H PRN nausea and 01/11/25 tablet vomiting #15 tabs oxycodone 5 mg tablet 5 mg PO Q6H PRN Pain, 01/11/25 Moderate(Pain Scale 4-6) #16 tabs albuterol sulfate 90 mcg/actuation 1 puff inhalation QID PRN 02/05/25 aerosol inhaler shortness of breath or wheezing #6.7 grams inhalational spacing device #1 ea 02/05/25 Allergies Allergy/AdvReac Type Severity Reaction Status Date / Time No Known Allergies Allergy Verified 02/05/25 09:15 [facility] Past Medical History Attestation statement: The following information was validated with the patient. Source: nursing notes reviewed Medical History Abdominal pain Transaminitis Chronic pain syndrome Fibromyalgia Hyperlipidemia Anxiety History of umbilical hernia Surgical History History of excision of mass History of cholecystectomy History of breast augmentation History of bilateral breast reduction surgery History of abdominoplasty Family History Family History Mother Colon cancer Other Asthma Social History Social History Household Members: Spouse and Children Housing: House Do you presently have visiting nurse or other home services: No Alcohol intake: never Patient Tobacco Use Status: Never used Tobacco service: No Physical Exam Vital Signs: Vital Signs: Last Vital Signs Temp 98.5 F 02/05/25 11:46 Pulse 82 02/05/25 11:46 Resp 18 02/05/25 11:46 BP 114/68 02/05/25 11:46 Pulse Ox 95 02/05/25 11:46 O2 Del Method Room Air 02/05/25 11:46 BMI result Body Mass Index 32.7 Const: General: cooperative, healthy appearing, comfortable, no acute distress, well developed, alert, awake, Physically active and tired appearing Nutritional Appearance: obese Orientation/consciousness: patient oriented x3 Limitations: no limitations HEENT: Head: Yes normal to inspection Ears: hearing grossly normal bilaterally, external ears normal, TM's normal bilaterally, TM normal on the right and TM normal on the left General nose exam: Normal external nose present, Normal nasal mucous membranes and turbinates present, No nasal discharge present (scant clear discharged noted) and Abnormal external nose present Face and sinus: Yes normal facial exam Mouth: Normal oral and palatal mucosa present, lip normal and tongue normal Teeth and gingiva: dentition normal Throat: Yes posterior oropharynx normal, Yes tonsils normal and Yes uvula midline Eyes: General: appearance normal, both eyes and all related structures Eyelids: Yes eyelids normal Conjunctivae: conjunctivae normal Sclerae: sclerae normal Corneas: corneas normal EOM: EOMs intact bilaterally Neck: Neck: Yes normal visual inspection, Yes full ROM and Yes no lymphadenopathy Chest: Chest palpation & inspection: normal inspection of the chest Resp: Effort & Inspection: normal respiratory effort and able to speak in complete sentences Auscultation: clear to auscultation bilaterally Cardio: Jugular venous distension: no JVD Rate: regular rate Rhythm: regular rhythm GI: Inspection: Yes normal to inspection Skin: General skin exam: no rashes or lesions noted Rashes: no rashes Wounds: no wounds Hair: normal Neuro: General: patient oriented x3 Medications Administered Discontinued Medications Generic Name Dose Route Start Last Admin Trade Name Freq PRN Reason Stop Dose Admin Albuterol Sulfate 2.5 mg/ 5 mg 02/05/25 10:45 02/05/25 10:42 Albuterol Sulfate 2.5 mg INHALE 02/05/25 11:26 Not Given Q20M BALDEV Albuterol Sulfate 2.5 mg/ 5 mg 02/05/25 10:42 02/05/25 10:44 Albuterol Sulfate 2.5 mg INHALE 02/05/25 10:43 5 mg ONCE ONE Administration Ibuprofen 600 mg 02/05/25 10:16 02/05/25 10:36 Ibuprofen 600 Mg Tablet PO 02/05/25 10:17 600 mg ONCE ONE Administration Medical Decision Making Medical Decision Making MDM Narrative: Well appearing 44 y/o F here for URi sxs. She has high clinical concern for her asthma being exacerbated despite clear lungs and no hypoxia or respiratory distress. Bronchoscoring ordered. CXR ordered along with COVID/FLU/ RSV testing. She is hydrated without respiratory distress. Presentation not consistent with ACS- cardiac work up deferred. ALso not likely PE or PTX. She was worried for her glucose being high, despite no polyuria, polydipsia. POC glucose normal. COVID, FLU and RSV negative. The patient presents with symptoms that do not suggest middle or external ear infection, strep throat, mononucleosis, tonsillitis, bacterial sinusitis, bronchitis, or pneumonia. Physical examination reveals no significant findings such as otalgia, erythema, exudate, lymphadenopathy, or abnormal lung sounds. They have reassuring vitals and are maintaining their fluids. CXR is clear; oral antibiotics, oral steroids, or breathing treatments not indicated as no concern for asthma exacerbation, pneumonia or bronchitis today. The patient is stable, and either the patient or accompanying family/friend was provided with strict return precautions and ED warning signs. [id number] medications and a dequate hydration were recommended for symptom management. The patient agreed with the treatment plan and was discharged home in stable condition. Differential Diagnosis Differential Diagnoses: The differential diagnosis associated with the presentation includes see [facility] Admission/Observation Consideration of admission/observation: Escalation of care including admission/observation considered Patient is not an asthma exacerbation or any acute respiratory distress requiring further level of care and will be discharged home Lab Data [facility] Lab Attestation statement: I reviewed the patient's lab results. Labs: Lab Results 02/05/25 02/05/25 Range/Units 09:32 10:48 POC Glucose 94 (60-115) mg/dL Influenza Type A (PCR) NEGATIVE (Negative) Influenza Type B (PCR) NEGATIVE (Negative) RSV RNA Qual (PCR) NEGATIVE (Negative) SARS-CoV-2 RNA (RT-PCR) NEGATIVE (Negative) Independent Interpretation I performed an independent interpretation of an: Plain X-Ray Interpretation: No acute findings Radiology Impression Discussion of test interpretation with radiology: I have reviewed the radiologist's reading. Independent Historian Clinical information obtained from an independent historian. History obtained from or confirmed by: Other diplomatic interpreter/translator Tests considered The following testing was considered but not selected: See [facility] Prescription Management I considered prescription management with: Antibiotic Though acute bacterial infectious etiology of the respiratory tract today not indicated. Patient is also on a knot in an asthma exacerbation p.o. steroids are not indicated. For refill her asthma inhaler Chronic Conditions Patient?s care impacted by: Diabetes Patient is prediabetic did a point of care glucose normal Discharge Plan Discharge Clinical Impression: Acute cough, Asthma, URI (upper respiratory infection) Patient Disposition: Home, Self-Care Instructions: Asthma (DC), Upper Respiratory Infection (DC) Additional Instructions: You have an upper respiratory infection. This is an infection involving the nose, throat and larynx, almost always caused by a virus. The infection rarely spreads or leads to serious long-term problems. Since the infection is caused by a virus, antibiotics are not helpful. It may help your symptoms to use a decongestant nose spray to open the nasal passages and permit drainage. Afrin nasal spray (or a similar decongestant spray) can be used twice a day for up to four days. You may develop tolerance to it if used longer than this. You may take Tylenol 650mg orally every 6 hours or Motrin (advil) 600mg orally every 6 hours as needed. Please take the motrin with food. Over the counter Flonase nasal spray can help with any congestion/sinus pressure. With time this can also help alleviate ear pressure that occurs as a result of the congestion. Over the counter [place] Mist Nasal Saline can be used a few times daily to help irrigate the nose/sinuses to help with congestion. Warm tea with honey can help the throat and cough. You may trial use of an over the counter decongestant such as Sudafed. Return or get rechecked by your doctor if you get high or prolonged fever (over 101 F orally), worsening pain, swelling over your face or eyes, earache, shortness of breath or chest pain, severe headache, stiff neck, vomiting, or a rash. If you are not improving after 10 days of illness you should be re-evaluate. Respiratory tract infections are usually spread by coughing; the virus lands on surfaces and is then picked up on the hands and carried to the nose or mouth - so good hand washing is important to avoid spreading the virus. To note your point of care glucose is normal today your chest x-ray was normal and you tested negative for COVID and flu Inhaler Instructions: * Prepare the Inhaler: Open the protective cover of the inhaler and check if it's clean and undamaged. Hold the inhaler upright and slide the cover down until you hear a click. * Exhale: Breathe out gently, away from the inhaler, to ensure your lungs are empty before inhaling the medication. * Inhale the Medication: Place the mouthpiece between your lips and form a tight seal around it. Inhale the medication deeply and steadily through your mouth. Avoid blocking the air vents with your fingers or lips. * Hold Your Breath: Hold your breath for about 5 to 10 seconds to allow the medication to reach deep into your lungs. * Exhale Slowly: Breathe out slowly and gently away from the inhaler. * Close the Inhaler: Slide the cover of the inhaler back-up to protect the mouthpiece until your next use. * Rinse Your Mouth: If instructed by your healthcare provider, rinse your mouth with water after using the inhaler to help reduce the risk of developing oral thrush. * Clean the Inhaler: Regularly clean the mouthpiece with a dry tissue to prevent buildup of powder residue. Prescriptions: New albuterol sulfate 90 mcg/actuation HFA aerosol inhaler 1 puff inhalation QID PRN (Reason: shortness of breath or wheezing) Qty: 6.7 1RF (DME) inhalational spacing device Spacer See Rx Instructions .Route Qty: 1 0RF Rx Instructions: As directed No Action acetaminophen [Tylenol Extra Strength] 500 mg tablet 1,000 mg PO Q6H PRN (Reason: fever or pain) Qty: 20 0RF rosuvastatin 40 mg tablet 40 mg PO BEDTIME albuterol sulfate [Ventolin HFA] 90 mcg/actuation HFA aerosol inhaler 2 puff INHALATION Q4H PRN (Reason: wheezing) cyclobenzaprine 10 mg tablet 10 mg PO BEDTIME PRN (Reason: muscle spasm) meloxicam 15 mg tablet 15 mg PO DAILY fluoxetine 20 mg capsule 20 mg PO DAILY oxycodone 5 mg Tablet 5 mg PO Q6H PRN (Reason: Pain, Moderate(Pain Scale 4-6)) Qty: 16 0RF Rx Instructions: Partial Fill upon patient request. ibuprofen [Motrin IB] 200 mg capsule 600 mg PO Q6H PRN (Reason: pain (scale score 4-6)) Qty: 30 0RF ondansetron 4 mg tablet,disintegrating 4 mg PO Q8H PRN (Reason: nausea and vomiting) Qty: 15 0RF omeprazole 20 mg capsule,delayed release(DR/EC) 20 mg PO DAILY@0630 Referrals: Evy Christopher, WATER PURIFIER OPERATOR [Primary Care Provider] - 1 week Interventions: ED Discharge Assessment Last Done: 02/05/25 11:46 Discharge Date/Time: 02/05/25 11:48 Print Language: Brazilian
[2025-02-05 10:14] LABS: Influenza A PCR NEGATIVE (Negative); Influenza B PCR NEGATIVE (Negative); Resp Syncy Virus RNA Qual PCR NEGATIVE (Negative); SARS COV2 PCR INHOUSE NEGATIVE (Negative)
[2025-02-05] MEDS: Ibuprofen 600 MG TABLET PO (10:36)
[2025-02-05] MEDS: Albuterol Sulfate 2.5 MG, Albuterol Sulfate (0.083%) 2.5 MG 5 MG INHALE (10:44)
[2025-02-05 10:47] VITALS: PULSE 82; RESP 18; O2SAT 97
[2025-02-05 10:51] LABS: Glucose, Whole Blood 94 mg/dL (60-115)
--- OUTSIDE RECORDS SUMMARY | 2025-02-05 10:56 | XMS_ITS | Encounter Summary ---
Author Organization [employer] Address [address] [place] [address] Care Team Providers Care Orthotist Name Role Phone Evy Christopher Primary Care Provider [phone] Romeo Echavarria RN Unavailable [phone] Encounter Details Date Type Department Care Team (Late st Contact Info) Description 10/16/2024 Telephone [facility] MED[facility]INE [address] [place], [place] [phone] Evy Christopher ANP [address] [place], [place] [phone] Social History Tobacco Use Types Packs/Day Years [...] Description 02/09/2025 2:00 PM EDT Office Visit [facility] MED[facility]INE [address] [place] [address] Evy Christopher ANP [address] [place] [address] documented as of this encounter Visit Diagnoses Not on filedocumented in this encounter Additional Health Concerns Assessment Noted Time PHQ-9 Depression Total Score: 2 05/23/20 24 9:49 AM EDT documented as of this encounter Care Teams Orthotist Relationship Specialty Start Date End Date Evy Christopher ANP [address] [place] [address] PCP - General Family Medicine 06/20/21 Romeo Echavarria, SUKHWINDER [address] [place] [address] Retail Business AnalystOutboard Motor Inspector 12/25/24 documented as of this encounter
--- OUTSIDE RECORDS SUMMARY | 2025-02-05 10:56 | XMS_ITS | Encounter Summary ---
Author Organization [employer] Address [address] [place] [address] Care Team Providers Care Securities Teller Name Role Phone Evy Christopher JORGE A Primary Care Provider [phone] Romeo Echavarria RN Unavailable [phone] Reason for Visit * Reason Onset Date Comments RCT active request 09/26/2023 Encounter Details Date Type Department Care Team ([facility] st Contact Info) Description 09/26/2023 Telephone [facility] ADULT DENTAL [address] [place] [address] Torie Mishra DDS [address] [place] [address] RCT active request Social History Tobacco Use [...] Miscellaneous Notes * Telephone Encounter - Yessica Baljinder - 09/26/2023 1:13 PM EST Ptient states [...] 02/09/2025 2:00 PM EDT Office Visit [facility] MEDICINE [address] [place] [address] Evy Christopher ANP [address] [place] [address] documented as of this encounter Visit Diagnoses Not on filedocumented in this encounter Additional Health Concerns Assessment Noted Time PHQ-9 Depression Total Score: 13 023 2:43 PM EST documented as of this encounter Care Teams Securities Teller Relationship Specialty Start Date End Date Evy Christopher ANP [address] [place] [address] PCP - General Family Medicine 06/20/21 Romeo Echavarria RN [address] [place] [id number] Chief Vendor [employer] Java [email or web address] Developer 12/25/24 documented as of this encounter
--- OUTSIDE RECORDS SUMMARY | 2025-02-05 10:56 | XMS_ITS | Encounter Summary ---
Author Organization [employer] Address [address] [facility] [address] [place] [address] Care Team Providers Care Development Administrator Name Role Phone Evy Christopher JORGE A Primary Care Provider [phone] Romeo Echavarria RN Unavailable [phone] Encounter Details Date Type Department Care Team (Late st Contact Info) Description 09/23/2024 Orders Only [facility] [address] [place] [address] Provider, MD Pearl Social History Tobacco Use [...] Description 02/09/2025 2:00 PM EDT Office Visit [facility] MEDICINE [address] [place] [address] Evy Christopher ANP [address] [place] [address] documented as of this encounter Procedures Procedure [...] documented as of this encounter Care Teams Development Administrator Relationship Specialty Start Date End Date Evy Christopher ANP [address] [place] [id number] PCP - General Family Medicine 06/20/21 Romeo Echavarria, SUKHWINDER [address] [place] [id number] Foaming Machine OperatorElectric Serviceman 12/25/24 documented as of this encounter
--- OUTSIDE RECORDS SUMMARY | 2025-02-05 10:56 | XMS_ITS | Clinical Summary ---
Author Organization [employer] Address [address] [place] [address] Care Team Providers Care Gang Bore Operator Name Role Phone Trevor Medina JORGE A Primary Care Provider [phone] Romeo Echavarria RN Unavailable [phone] Allergies Active Allergy Reactions Criticality Noted Date Comments Gramineae Pollens 05/09/2024 Other Reaction(s): Unknown Medications * This document contains information received from the source organization and may not represent a complete record from that organization. Blood Glucose Monitoring Suppl (FreeStyle Lite) w/Device kit USE DIRECTED TO CHECK BLOOD SUGAR 022 Active loratadine (Claritin) 10 MG tablet Take 1 tablet (10 mg) by mouth if needed each day for allergies. 90 tablet 023 Active polyethylene glycol, PEG, 3350 (Glycolax) 17 GM/SCOOP powderIndications :Constipation, unspecified constipation type 1 scoop (17g) as needed 1-2 times daily for constipation. Mix with 8oz water, juice, soda, coffee, or tea 510 g 1 023 Active cetirizine (ZyrTEC) 10 MG tablet Take 1 tablet (10 mg) by mouth Once per day. 30 tablet 11 024 2024 Active EPINEPHrine (Epipen) 0.3 MG/0.3ML injection syringe Inject 0.3 mL (0.3 mg) as directed 1 (one) time if needed for anaphylaxis for up to 2 doses. Inject into upper leg. Call 911 after use. 2 each 024 Active albuterol (2.5 MG/3ML) 0.083% nebulizer solutionIndicatio ns:Moderate persistent asthma with exacerbation Take 3 mL by nebulization every 8 (eight) hours if needed for wheezing or shortness of breath. 75 mL 3 024 Active glucose blood (FREESTYLE LITE) test stripIndications: Prediabetes USE TO CHECK FASTING SUGAR IN THE MORNING OR NEEDED FOR SYMPTOMS 100 strip 11 024 Active ezetimibe (Zetia) 10 MG tabletIndications :Dyslipidemia Take 1 tablet (10 mg) by mouth Once daily. 90 tablet 1 024 2024 Active FreeStyle lancetsIndication s:Prediabetes 1 each by Other route if needed each day (blood sugar). 100 each 2 Active Alcohol Swabs (B-D SINGLE USE SWABS REGULAR) padsIndications:P rediabetes USE DIRECTED WHEN TESTING BLOOD SUGAR EVERY MORNING 100 each 11 025 Active albuterol 108 (90 Base) MCG/ACT inhalerIndication s:Moderate persistent asthma with exacerbation Inhale 2 puffs every 4 (four) hours if needed for wheezing. 18 g 3 025 Active rosuvastatin (Crestor) 40 MG tablet TAKE 1 TABLET BY MOUTH EVERY DAY AT BEDTIME 90 tablet 1 Active ibuprofen 600 MG tablet Take 1 tablet (600 mg) by mouth every 8 (eight) hours if needed for mild pain or moderate pain. 60 tablet 025 2024 Active ondansetron (Zofran) 4 MG tabletIndications :Nausea 1-2 tab po TID prn nasuea/vomiting 30 tablet 1 Active oxyCODONE (Roxicodone) 5 MG immediate release tablet Take 5 mg by mouth every 6 (six) hours if needed for moderate pain. 025 Active pantoprazole (ProtoNix) 20 MG EC tablet Take 1 tablet by mouth before breakfast. 025 2025 Active FLUoxetine (PROzac) 20 MG capsuleIndication s:SHANNA (generalized anxiety disorder) Take 1 capsule (20 mg) by mouth Once per day. 90 capsule 1 025 2024 Active methocarbamol (Robaxin) 750 MG tablet Take 1 tablet (750 mg) by mouth if needed in the morning, at noon, and at bedtime for muscle spasms. 60 tablet 1 025 2025 Active naproxen (Naprosyn) 500 MG tablet Take 1 tablet (500 mg) by mouth if needed in the morning and at bedtime for mild pain (pain). DO NOT TAKE WITH IBUPROFEN 40 tablet 1 025 2025 Active Diclofenac Sodium 1 % gel Apply 2 g topically if needed in the morning, at noon, in the evening, and at bedtime (pain). 150 g 1 Active sennosides (Senokot) 8.6 MG tablet Take 1 tablet by mouth in the morning. 022 2024 Discontinued(M ed list cleanup (will not trigger notification to Pharmacy)) cholecalciferol (Vitamin D-3) 25 MCG (1000 UT) capsule Take 1 capsule by mouth at bed time. 021 2024 Discontinued(M ed list cleanup (will not trigger notification to Pharmacy)) levonorgestrel-et hinyl estradiol (Aviane, Alesse, Lessina) 0.1-20 MG-MCG tablet Take by mouth. 023 2024 Discontinued(M ed list cleanup (will not trigger notification to Pharmacy)) ondansetron (Zofran) 4 MG tabletIndications :Nausea Take 1 tablet (4 mg) by mouth every 8 (eight) hours if needed for nausea or vomiting. 30 tablet 1 023 2024 Discontinued(R eorder (will not trigger notification to Pharmacy)) SUMAtriptan (Imitrex) 50 MG tablet Take 1 tablet (50 mg) by mouth 1 (one) time if needed for migraine. Take with fluids at the onset of migraine; may repeat after 2 hours if migraine returns 15 tablet 1 023 2024 Discontinued(M ed list cleanup (will not trigger notification to Pharmacy)) ketotifen (Zaditor) 0.025 % ophthalmic solutionIndicatio ns:Allergic conjunctivitis, unspecified laterality Administer 1 drop into both eyes if needed in the morning and at bedtime (itching). 10 mL 023 2024 Discontinued(M ed list cleanup (will not trigger notification to Pharmacy)) hydrOXYzine HCl (Atarax) 10 MG tabletIndications :Right hip pain,Difficulty sleeping Take 1-2 tablets (10-20 mg) by mouth every 6 (six) hours. As needed for anxiety or insomnia 45 tablet 1 023 2024 Discontinued(M ed list cleanup (will not trigger notification to Pharmacy)) acetaminophen (Tylenol) 500 MG tabletIndications :Acute nonintractable headache, unspecified headache type Take 2 tablets (1,000 mg) by mouth every 8 (eight) hours if needed for moderate pain or headaches. 40 tablet 024 2024 Discontinued lidocaine (Lidoderm) 5 % patchIndications: Right hip pain Apply 1 patch topically in the morning. Remove & discard patch within 12 hours or as directed by MD. 30 patch 024 2024 Discontinued(M ed list cleanup (will not trigger notification to Pharmacy)) Melatonin 3 MG capsule Take 3 mg by mouth if needed at bedtime (sleep). 30 capsule 2 024 2024 Discontinued(M ed list cleanup (will not trigger notification to Pharmacy)) esomeprazole (NexIUM) [address] capsule Take 40 mg by mouth 2 times daily. 2024 Discontinued(M ed list cleanup (will not trigger notification to Pharmacy)) FLUoxetine (PROzac) 20 MG capsuleIndication s:SHANNA (generalized anxiety disorder) Take 1 capsule (20 mg) by mouth Once per day. 90 capsule 024 2024 Discontinued(R eorder (will not trigger notification to Pharmacy)) methocarbamol (Robaxin) 750 MG tablet Take 750 mg by mouth 4 times daily. 025 2024 Discontinued(M ed list cleanup (will not trigger notification to Pharmacy)) ibuprofen 800 MG tabletIndications :Strain of left rotator cuff capsule, sequela Take 1 tablet (800 mg) by mouth every 8 (eight) hours if needed for moderate pain or fever. 30 tablet 025 2024 Discontinued cyclobenzaprine (Flexeril) 10 MG tabletIndications :Strain of left rotator cuff capsule, sequela One tab po at bedtime prn pain of muscles, do not drive with medicaion 30 tablet 025 2024 Discontinued(M ed list cleanup (will not trigger notification to Pharmacy)) acetaminophen (Tylenol Extra Strength) 500 MG tablet Take 1 tablet (500 mg) by mouth every 6 (six) hours if needed for mild pain. 120 tablet 2024 Discontinued(M ed list cleanup (will not trigger notification to Pharmacy)) bismuth subsalicylate (Pepto Bismol) 262 MG/15ML suspension Take 15 mL by mouth every 6 (six) hours if needed for indigestion for up to 10 days. 360 mL 2024 traMADol (Ultram) 50 MG tabletIndications :Acute intractable headache, unspecified headache type Take 1 tablet (50 mg) by mouth every 8 (eight) hours if needed for severe pain for up to 2 days. DO NOT TAKE WITH OXYCODONE 6 tablet 025 2024 Active Problems Problem Noted Date Diagnosed Date Generalized abdominal pain 01/12/2025 Assessment & Plan (01/12/2025 11:44 AM EDT): On the colic flank, apparently related to epiploic appendagitis. Labs and CT scan done yesterday at the ED are reassuring. Advised patient to have fluids only diet today and advance to soft diet as tolerated tomorrow. She will be out of work for the next 2 days. She will take Pepto-Bismol and Zofran as needed symptoms, if she develops fever, worsening abdominal pain, cannot tolerate p.o. etc., she should go to ED. 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 is reported as normal -warm compresses -tylenol [...] pt report UTD on pap, managed by [employer] chief scientist Right ovarian cyst 04/17/2021 Overview (06/23/2024): 06/2023 measuring 3.0 x 2.9 x 2.8 cm Prediabetes 01/22/2019 Overview (09/09/2024): Lab Results Component Value Date HGBA1C 5.7 09/11/2023 HGBA1C 5.2 07/07/2022 HGBA1C 5.2 02/23/2021 Mild persistent asthma without complication 11/29 Hyperlipidemia 12/03/2015 Overview (09/11/2023): Cont rosuvastatin 40mg Assessment & Plan (12/31/2023 10:17 AM EST): Continue rosuvastatin 40 mg, labs completed at [facility] Chronic abdominal pain 12/03/2015 Assessment & Plan [...] exam concerning for UTI. Urine culture ordered. Headache 12/03/2015 01/22/2025 Encounters Date Type Department Care Team Description 02/05/2025 Orders Only [facility] External Provider, [facility] 02/02/2025 Telephone [facility] MEDICINE [address] [place] [phone] Trevor Medina ANP Care Management (C3- Follow up call # 2) 01/28/2025 Population Health Risk Score Community Care [facility] (C3) Department [address] [place] [address] [phone] Provider, Population Health Generic 01/23/2025 Patient Outreach [address] [address] Trevor Medina ANP Care Coordination (C3 -[facility] Aleja Brannon telephone call outreach) 01/22/2025 11:00 AM EDT Office Visit [facility] [address] [place] [phone] Maddie Hilton DO Acute intractable headache, unspecified headache type (Primary Dx); Neck pain 01/22/2025 Telephone [facility] [address] [place] [phone] Trevor Medina ANP Referral 01/20/[address] [address] Trevor Medina ANP Care Management (C3- Follow Up Call # 1) 01/16/[address] [address] Trevor Medina ANP No Show 01/12/2025 11:00 AM EDT Office Visit [facility] WALKIN [address] [address] Evangelina Garcia MD Generalized abdominal pain (Primary Dx); Nausea 01/12/2025 Orders Only GENERIC EXTERNAL DATA DEPARTMENT Provider, Generic External Data 01/12/2025 Patient Outreach [address] [address] Trevor Medina ANP Transition Of Care (Tcm) (HDF- scheduled and SDOH screening completed on 12/08/2024) 01/10/2025 Orders Only GENERIC EXTERNAL DATA DEPARTMENT Provider, Generic External Data 01/07/[address] [address] Trevor Medina ANP Care Management ([facility]- F/U call # 1/LVM) 01/01/2025 Patient Outreach [address] [address] Trevor Medina ANP Transition Of Care (Tcm) 12/31/[address] [address] Trevor Medina ANP 12/30/2024 2:00 PM EST [facility] [address] [address] Beatrice Cabrales MD Strain of left rotator cuff capsule, sequela (Primary Dx); Bilateral sciatica 12/26/2024 9:15 AM EST Office Visit [facility] OPTOMETRY [address] [place] [address] StefanoPam beavers, OD Myopia of both eyes (Primary Dx) 12/25/[address] [address] Trevor Medina ANP Care Management (C3- Initial assessment/enrollment ) 12/24/[address] [address] Trevor Medina ANP Medication Question 12/24/2024 Patient Outreach [address] [address] Trevor Medina ANP Care Coordination (C3 CM-[facility] Aleja Brannon telephone call outreach) 12/22/[address] [address] Trevor Medina ANP Referral 12/09/[address] [address] Namita Lorenzana [facility] 12/09/2024 Patient Outreach [address] [address] Trevor Medina ANP Care Coordination (C3 CM-[facility] Aleja Brannon telephone call outreach) 12/08/2024 Patient Outreach [address] [address] Trevor Medina ANP Care Coordination (C3 [facility] Aleja Brannon telephone call outreach) 12/08/2024 Patient Outreach [address] [address] Trevor Medina ANP Care Coordination (C3 CM-[facility] Aleja Vaquez telephone call outreach) 12/08/2024 Patient Outreach [address] [address] Trevor Medina ANP Care Coordination (C3 [facility] Aleja Brannon chart review) 12/08/2024 Patient Outreach [address] [address] Trevor Medina ANP Transition Of Care (Tcm) 12/08/[address] [address] Trevor Medina ANP Care Management (C3CM- chart review) 12/01/[address] [address] Trevor Medina ANP Referral; january (Called pt to book appt for follow up.pt agreed to come 02/09/25 ) 11/19/2024 3:00 PM EST Office Visit [facility] OPT[facility] [address] [place] [phone] Stefano, Pam, OD Dry eyes, bilateral (Primary Dx); Myopia of both eyes 11/19/2024 Travel 11/18/2024 Telephone [facility] MEDICINE [address] [place] [address] Trevor Medina ANP Results 11/11/2024 11:15 AM EST Office Visit [facility] MED[facility]INE [address] [place] [address] Trevor Medina ANP Transaminitis (Primary Dx); Fatigue, unspecified type; Acute cough; Viral URI; Prediabetes; Hyperlipidemia, unspecified hyperlipidemia type; Moderate persistent asthma with exacerbation; History of hernia repair 11/11/2024 Travel from Last 3 Months Immunizations Name Administration [...] Sign Reading Time Taken Comments Blood Pressure 132/80 01/22/2025 10:44 AM EDT Pulse 74 01/22/2025 10:44 AM EDT Temperature 36.6 ??C (97.8 ??F) 01/22/2025 10:44 AM E DT Respiratory Rate 18 01/22/2025 10:44 AM EDT Oxygen Saturation 99% 01/22/2025 10:44 AM EDT Inhaled Oxygen Concentration - - Weight 88.2 kg (194 lb 6.4 oz) 01/22/2025 10:44 AM EDT Height 160 cm (5' 3 ) 09/09/2024 9:29 AM EST Body Mass Index 34.44 09/09/2024 9:29 AM EST Plan of Treatment Upcoming Encounters Date Type Department Care Team (Late st Contact Info) Description 02/09/2025 2:00 PM EDT Office Visit [facility] MEDICINE [address] [place], [place] [phone] Trevor Medina, ANP [address] [place] [address] Health Maintenance Due Date Last Done Comments [...] exists SDOH Screening 12/08/2025 12/08/2024 Tobacco Screening 01/22/2026 01/22/2025 Zoster Vaccines (1 of 2) 2028 Colonoscopy [...] Procedure Name Priority Date/Time Associated Diagnosis Comments GLUCOSE, WHOLE BLOOD Routine 02/05/2025 10:48 AM EDT XR CHEST 2 VIEWS Routine 02/05/2025 9:58 AM EDT SARS COV2/INFLUENZA A/B AND RSV RNA QL NAAT Routine 02/05/2025 9:32 AM EDT AMB REFERRAL TO ORTHOPAEDIC SURGERY Routine 01/30/2025 Strain of left rotator cuff capsule, sequela HCG, TOTAL, QN Routine 01/12/2025 5:41 PM EDT ETHANOL Routine 01/12/2025 5:41 PM EDT LIPASE Routine 01/12/2025 5:41 PM EDT C-REACTIVE PROTEIN Routine 01/12/2025 5: 41 PM EDT MAGNESIUM Routine 01/12/2025 5:41 PM EDT COMPREHENSIVE METABOLIC PANEL Routine 01/12/2025 5:[address] ABDOMEN PELVIS W CONTRAST Routine 01/10/2025 11:56 AM EDT URINALYSIS, COMPLETE, WITH REFLEX TO CULTURE Routine 01/10/2025 11:30 AM EDT SARS COV2/INFLUENZA A/B AND RSV RNA QL NAAT Routine 01/10/2025 8:54 AM EDT COMPREHENSIVE METABOLIC PANEL Routine 01/10/2025 8:41 AM EDT CBC WITH AUTO DIFFERENTIAL Routine 01/10/2025 8:41 AM EDT BI MAMMOGRAM SCREEN W LUKAS W IMPLANTS [...] PANEL Routine 11/12/2024 8:04 AM EST Transaminitis HEPATITIS C AB W/REFL TO HCV RNA, QN, PCR Routine 11/16/2023 9:23 AM EST Elevated ferritin level BITEWING - SINGLE RADIOGRAPHIC IMAGE Routine 09/26/2023 11:30 AM EST Failing root canal HIV ANTIBODY/ANTIGEN (OK DPH) Routine 07/12/2023 9:10 AM EDT HM COLONOSCOPY Routine 12/17/2014 PAP/HPV Routine 12/31/2013 from Last 3 Months or Most Recently Relevant to Health Maintenance Results * Glucose, Whole Blood (02/05/2025 10:48 AM EDT) Glucose, Whole Blood 94 60 - 115 mg/dL [facility] Comment:METER #: [id number] 02/05/2025 10:4 8 AM EDT 02/05/2025 10:51 AM EDT us Generic External Data Provider LAB BLOOD ORDERAB LES Final Result [facility] [address] [place] [phone] * XR Chest 2 Views (02/05/2025 9:58 AM EDT) Anatomical Region Laterality Modality Chest Radiographic Leigh ging 02/05/2025 9:58 AM EDT Narrative 02/05/2025 10:13 AM EDT ? [facility] ?[address] ?[place] [address] ?XRay Report ? Signed ? Patient: Tawny,Kenyatta ?MR#: [id number] ? : 1980 ?Acct:[id number] ? Age/Sex: 44 / F ?ADM Date: 02/05/25 ? Loc: HO.ED ? Attending Dr: ? Ordering Physician: Generic ED Physician ?? Date of Service: 02/05/25 ?? Procedure(s): XR chest 2V ?? Accession Number(s): [id number] ? cc: Generic ED Physician; TREVOR MEDINA NP ? EXAMINATION: ?? XR CHEST ? CLINICAL INFORMATION: ?? SOB ? COMPARISON: ?? June 23, 2024. ? TECHNIQUE: ?? 2 views of the chest were obtained. ? FINDINGS: ?? No consolidation, pleural effusion or pneumothorax. ?? Cardiomediastinal silhouette size is normal. Osseous structures are ?? intact. ? XR/XR chest 2V ?? IMPRESSION: ?? No acute airspace disease. Stable chest. ? Electronically signed by: ??Angel Hull MD ??02/05/2025 10:10 AM ?? EDT RP ? Dictated By: ?Angel De Santiago MD ? Signed By: ?<Electronically signed by Angel Flynn MD in OV> ? 02/05/25 1010 ? DD/ 0958 ? TD/TT: 02/05/25 1008 ? Vba Developer: ? Procedure Note Pito Cruz - 02/05/[address] [address] XRay Report Signed Patient: Afua Hector LMR#: [id number] : 1980Acct:[id number] Age/Sex: 44 / FADM Date: 02/05/25 Loc: HO.ED Attending Dr: Ordering Physician: Generic ED Physician Date of Service: 02/05/25 Procedure(s): XR chest 2V Accession Number(s): [id number] cc: Generic ED Physician; TREVOR MEDINA CURRICULUM SUPERVISOR EXAMINATION: XR CHEST CLINICAL INFORMATION: SOB COMPARISON: June 23, 2024. TECHNIQUE: 2 views of the chest were obtained. FINDINGS: No consolidation, pleural effusion or pneumothorax. Cardiomediastinal silhouette size is normal. Osseous structures are intact. XR/XR chest 2V IMPRESSION: No acute airspace disease. Stable chest. Electronically signed by: Angel Hull MD 02/05/2025 10:10 AM EDT RP Dictated By: Angel De Santiago MD Signed By: <Electronically signed by Angel Flynn MDin OV> 02/05/25 1010 DD/ 0958 TD/TT: 02/05/25 1008 Vba Developer: [facility] External Provider IMG XR PROCEDURES Final Result * SARS-CoV-2 RNA, Influenza A/B, and RSV RNA, Ql NAAT (02/05/2025 9:32 AM EDT) Only the most recent of2 resultswithin the time period is included. Influenza A PCR NEGATIVE Negative [facility] Influenza B PCR NEGATIVE Negative [facility] Resp Syncy Virus RNA Qual PCR NEGATIVE Negative [facility] SARS COV2 PCR NEGATIVE Negative [facility] Comment:All test results mus t be correlated with clinical findings.Negative results do not preclude SARS-CoV2, influenza Avirus, influenza B virus and/or RSV infectionand should not be used as the sole basis for treatment orother patient management decisions. Negative results must becombined with clinical observations, patient history, andepidemiological information.This test has not been evaluated for monitoring treatment ofinfection.This test has been authorized by the FDA under an EmergencyUse Authorization (EUA) for use by authorized laboratories.Testing performed on the [employer] GeneXpert utilizingreal-time RT-PCR.All SARS CoV2 and positive influenza A/B results arereported to [facility]. 02/05/2025 9:32 AM EDT 02/05/2025 9:35 AM EDT Generic External Data Provider LAB MICROBIOLOGY - GENERAL ORDERABLES Final Result Performing Organization Address [facility] de Phone Number [facility] [address] [place] [phone] * Referral to Orthopaedic Surgery (01/30/2025) Beatrice Cabrlaes MD OUTPATIENT REFERRAL ORDERA BLES Final Result * Ethanol (01/12/2025 5:41 PM EDT) ETHANOL (MG/DL) IN SER/PLAS <10 mg/dL [facility] Comment:Serum/plasma ethanol results are to be used formedical/treatment purposes only. 01/12/2025 5:41 PM EDT 01/12/2025 5:42 PM EDT Generic External Data Provider LAB BLOOD ORDERAB LES Final Result Performing Organization Address [facility] Co de Phone Number [facility] [address] [place] [phone] * (ABNORMAL) C-reactive Protein (01/12/2025 5:41 PM EDT) [facility] C Reactive Protein 1.65(H) < or = 0.50 mg/dL [facility] 01/12/2025 5:41 PM EDT 01/12/2025 5:42 PM EDT Generic External Data Provider LAB BLOOD ORDERAB LES Final Result Performing Organization Address [facility] Co de Phone Number [facility] [address] [place] [phone] * hCG, Total, Quantitative (01/12/2025 5:41 PM EDT) HCG Quantitative <2 mIU/mL [facility] Comment:Weeks post LMP Appro ximate hCG(Last Menstrual Period) Range (mIU/ml)3 - 4 weeks 9 - 1304 - 5 weeks 75 - 2,6005 - 6 weeks 850 - 20,8006 - 7 weeks 4000 - 100,2007 - 12 weeks 11,500 - 289,81291 - 16 weeks 18,300 - 137,93994 - 29 weeks (2nd trimester) 1,400 - 53,84750 - 41 weeks (3rd trimester) 940 - 60,000The [place] B- hCG assay is used for the early detection ofpregnancy; it cannot be used to diagnose any conditionunrelated to . If a B-hCG level is not supportedby the clinical evidence, results should be confirmed by analternative method (qualitative urine hCG, for example). 01/12/2025 5:41 PM EDT 01/12/2025 5:42 PM EDT Generic External Data Provider LAB BLOOD ORDERAB LES Final Result Performing Organization Address City/[facility]/ZIP Co de Phone Number [facility] [address] [place] [phone] * Magnesium (01/12/2025 5:41 PM EDT) Magnesium 1.8 1.6 - 2.6 mg/dL [facility] 01/12/2025 5:41 PM EDT 01/12/2025 5:42 PM EDT Generic External Data Provider LAB BLOOD ORDERAB LES Final Result Performing Organization Address City/[facility] Co de Phone Number [facility] [address] [place] [phone] * (ABNORMAL) Lipase (01/12/2025 5:41 PM EDT) Only the most recent of2 resultswithin the time period is included. Lipase 113(H) 8 - 78 U/L [facility] 01/12/2025 5:41 PM EDT 01/12/2025 5:42 PM EDT us Generic External Data Provider LAB BLOOD ORDERAB LES Final Result [facility] [address] [place] [phone] * (ABNORMAL) Comprehensive Metabolic Panel (01/12/2025 5:41 PM EDT) Only the most recent of2 resultswithin the time period is included. Sodium 141 135 - 145 mmol/L [facility] Potassium 4.1 3.3 - 5.1 mmol/L [facility] Chloride 106 96 - 108 mmol/L [facility] Carbon Dioxide 29 22 - 29 mmol/L [facility] Anion Gap 10(L) 12 - 20 [facility] Urea Nitrogen (BUN) 9 9 - 16 mg/dL [facility] Creatinine, Serum 0.70 0.5 - 1.4 mg/dL [facility] Creatinine Clr Calc Pharmacy 110.2 [facility] Comment:Provided height and weight: 167.64 cm,85 kg.eGFR (calculated from the MDRD study equation) and eCrCl(calculated from the Cockcroft-Gault equation) are based ondifferent parameters and may not yield comparable results.If eCrCl result is absurd, please check patient'sheight/weight. Estimated Glomerular Filt Rate >60 [facility] Comment:Chronic Kidney Disea se: Estimated GFR < 60 mL/min/[id number] Kidney Disease: Estimated GFR < 15 mL/min/1.73m2 Glucose 89 60 - 115 mg/dL [facility] Calcium 9.3 8.4 - 10.2 mg/dL [facility] Bilirubin, Total 0.7 0.0 - 1.0 mg/dL [facility] Aspartate Amino Transferase 51(H) 5 - 31 U/L [facility] Alanine Aminotransferase 38(H) 0 - 31 U/L [facility] Total Protein 7.6 6.5 - 8.0 g/dL [facility] Albumin Level 4.0 3.5 - 5.0 g/dL [facility] Alkaline Phosphatase 70 39 - 117 U/L [facility] 01/12/2025 5:41 PM EDT 01/12/2025 5:42 PM EDT us Generic External Data Provider LAB BLOOD ORDERAB LES Final Result [facility] [address] [facility] [place] [phone] * CT Abdomen Pelvis w/ Contrast (01/10/2025 11:56 AM EDT) Anatomical Region Laterality Modality Body, Pelvis, Abdomen Computed T omography 01/10/2025 11:5 6 AM EDT Narrative 01/10/2025 11:58 AM EDT ? [facility] ?[address] ?[place] [address] ? CT Scan Report ? Signed ? Patient: TawnyKenyatta ?MR#: [id number] ? : 1980 ?Acct:[id number] ? Age/Sex: 44 / F ?ADM Date: 01/10/25 ? Loc: HO.ED ? Attending Dr: ? Ordering Physician: Shelly Daly ?? Date of Service: 01/10/25 ?? Procedure(s): CT abdomen pelvis w IV con ?? Accession Number(s): [id number] ? cc: Shelly Daly; TREVOR MEDINA NP ? Report Number: ?? [id number]: Total DLP = ??721.00 mGy-cm ? CLINICAL HISTORY: diffuse abdominal pain, R flank pain ? CT abdomen and pelvis with contrast ? Comparison: CT - CT ABDOMEN PELVIS W IV CON - 01/10/25 09:50 EDT ? Findings: ?? No consolidation or effusion. ? The patient is status post cholecystectomy. The liver is otherwise ?? unremarkable. ?? The rest of the solid organs are normal. ?? The patient is status post hysterectomy. There are localized inflammatory ?? changes in the left upper quadrant mesentery related to a redundant ?? segment of the sigmoid colon and most compatible with epiploic ?? appendagitis. ?? The colon is otherwise unremarkable though there is a relatively large ?? stool burden. There is no evidence of appendicitis. ? Pelvic contents unremarkable. Normal appendix. ?? No acute fracture. ? The rest of the GI tract is unremarkable. ? IMPRESSION: ?? Epiploic appendagitis left upper quadrant related to a redundant segment ?? of sigmoid colon. ? This document has been electronically signed by: Alvarez Estarda MD on ?? 01/10/2025 11:56:18 ? Dictated By: ?Alvarez Estrada MD ? Signed By: ?<Electronically signed by Alvarez Estrada MD in OV> ? 01/10/25 1157 ? DD/ 1156 ? TD/TT: 01/10/25 1156 ? Vba Developer: ? Procedure Note Donotuseinterpreter, Image - 01/10/[address] [place] [address] [address] Scan Report Signed Patient: Afua Hector LMR#: [id number] : 1980Acct:[id number] Age/Sex: 44 / FADM Date: 01/10/25 Loc: HO.ED Attending Dr: Ordering Physician: Shelly Daly Date of Service: 01/10/25 Procedure(s): CT abdomen pelvis w IV con Accession Number(s): [id number] cc: Shelly Daly; TREVOR MEDINA NP Report Number: [id number]: Total DLP = 721.00 mGy-cm CLINICAL HISTORY: diffuse abdominal pain, R flank pain CT abdomen and pelvis with contrast Comparison: CT - CT ABDOMEN PELVIS W IV CON - 01/10/25 09:50 EDT Findings: No consolidation or effusion. The patient is status post cholecystectomy. The liver is otherwise unremarkable. The rest of the solid organs are normal. The patient is status post hysterectomy. There are localized inflammatory changes in the left upper quadrant mesentery related to a redundant segment of the sigmoid colon and most compatible with epiploic appendagitis. The colon is otherwise unremarkable though there is a relatively large stool burden. There is no evidence of appendicitis. Pelvic contents unremarkable. Normal appendix. No acute fracture. The rest of the GI tract is unremarkable. IMPRESSION: Epiploic appendagitis left upper quadrant related to a redundant segment of sigmoid colon. This document has been electronically signed by: Alvarez Estrada MD on 01/10/2025 11:56:18 Dictated By: Alvarez Estrada MD Signed By: <Electronically signed by Alvarez Estrada MD in OV> 01/10/25 1157 DD/ 1156 TD/TT: 01/10/25 1156 Vba Developer: [facility] External Provider IMG CT PROCEDURES Edited Result - Final * Urinalysis, Complete, with Reflex to Culture (01/10/2025 11:30 AM EDT) Color Urine Yellow [facility] Appearance Urine Clear [facility] PH 5.5 5.0 - 9.0 [facility] Glucose Urine UA Negative Negative mg/dL [facility] Urine Blood Negative Negative [facility] Specific [place] - Urine 1.020 1.005 - 1.025 [facility] Urine Protein Negative Neg-Trace mg/dL [facility] Urine Ketones Negative Negative mg/dL [facility] Nitrite Urine Negative Negative [facility] Leukocyte Esterase Urine Negative Negative [facility] RBC Urine 0-2 0 - 2 /HPF [facility] Urine WBC 0-5 0 - 5 /HPF [facility] Urine Squamous Epithelial Cell 0-2 0 - 2 /HPF [facility] Urine Bacteria None Seen None Seen [facility] Hyaline Casts, Urine 0-2 0 - 2 /LPF [facility] 01/10/2025 11:3 0 AM EDT 01/10/2025 11:36 AM EDT Narrative [facility] - 01/10/2025 11:49 AM EDT Urine, Clean Catch us Generic External Data Provider LAB URINE ORDERAB LES Final Result [facility] [address] [place] [phone] * CBC auto differential (01/10/2025 8:41 AM EDT) Only the most recent of2 resultswithin the time period is included. White Blood Count 9.2 4.8 - 10.8 X10*3/uL [facility] Red Blood Count 4.25 4.20 - 5.50 X10*6/uL [facility] Hemoglobin 12.4 12.0 - 16.0 g/dl [facility] Hematocrit 37.9 37.0 - 47.0 % [facility] Mean Corpuscular Volume 89.2 80.0 - 98.0 fL [facility] Mean Corpuscular Hemoglobin 29.2 27.0 - 33.0 pg [facility] Mean Corpuscular HGB Conc 32.7 31.0 - 35.0 g/dl [facility] Red Cell Distribution Width 12.5 11.0 - 16.0 % [facility] Platelet Count 318 160 - 400 X10*3/uL [facility] Mean Platelet Volume 10.2 9.4 - 12.3 fL [facility] Neutrophils Percent Auto 62.3 45 - 73 % [facility] Imm Gran Pct Auto 0.3 0.0 - 0.4 % [facility] Lymphocytes Percent Auto 24.9 20 - 40 % [facility] Monocytes Percent Auto 9.4 2 - 11 % [facility] Eosinophils Percent Auto 2.2 0 - 4 % [facility] Basophils Percent Auto 0.9 0 - 2 % [facility] NRBC Pct Auto 0.0 0.0 - 0.2 /100WBC [facility] Neutrophils Absolute Auto 5.7 2.0 - 8.3 x10*3/uL [facility] Imm Gran Abs Auto 0.03 0.00 - 0.03 X10*3/uL [facility] Lymphocytes Absolute Auto 2.3 1.2 - 4.9 X10*3/uL [facility] Monocytes Absolute Auto 0.9 0.1 - 1.2 X10*3/uL [facility] Eosinophils Absolute Auto 0.2 0.0 - 0.4 X10*3/uL [facility] Basophils Absolute Auto 0.1 0.0 - 0.2 X10*3/uL [facility] NRBC Abs Auto 0.000 0.0 - 0.012 X10*3/uL [facility] 01/10/2025 8:41 AM EDT 01/10/2025 8:46 AM EDT us Generic External Data Provider LAB BLOOD ORDERAB LES Final Result [facility] [address] [facility] [place] [phone] * BI Mammogram Screen w/ Lukas w/ Implants Harjeet (11/17/2024 2:28 PM EST) Anatomical Region Laterality Modality Mammography 11/17/2024 2:28 PM EST Narrative 11/25/2024 3:33 PM EST ? [facility] [place] ? [address] ?[place] [address] ? Mammography Report ? Signed ? Patient: Tawny,Kenyatta ?MR#: [id number] ? : 1980 ?Acct:[id number] ? Age/Sex: 44 / F ?ADM Date: /20/25 ? Loc: HO.MAMMO ? Attending Dr: Trevor Medina CURRICULUM SUPERVISOR ? Ordering Physician: ADAM,TREVOR CURRICULUM SUPERVISOR ?Results: 2Benign Fin ?? dings ? Date of Service: /20/25 ?Follow Up: 1 Year From Orig ?? inal Mammogram ? Procedure(s): MM tomosynthesis screen imp BI ?? Accession Number(s): [id number] ? cc: ADAM,TREVOR CURRICULUM SUPERVISOR ? EXAMINATION: ?? MM SCREENING DIGITAL BREAST [...] DD/ 1428 ? TD/TT: 11/17/24 1452 ? Vba Developer: ? Procedure Note Pito Cruz - 11/25/2024 [facility] [address] [place] [address] [place] [address] Mammography Report Signed Patient: Afua Hector LMR#: [id number] : 1980Acct:[id number] Age/Sex: 44 / FADM Date: 11/17/24 Loc: HO.MAMMO Attending Dr: Trevor Medina CURRICULUM SUPERVISOR Ordering Physician: TREVOR MEDINA NPResults: 2Benign Johnnie morgankelby Date of Service: 11/17/24Follow Up: 1 Year From Orig inal Mammogram Procedure(s): MM tomosynthesis screen imp BI Accession Number(s): [id number] cc: TREVOR MEDINA CURRICULUM SUPERVISOR EXAMINATION: MM SCREENING DIGITAL BREAST TOMOSYNTHESIS, BILATERAL [...] Milla Craig DO 11/25/2024 03:30 PM EST Dictated By: Milla Craig DO Signed By: <Electronically signed by Milla Craig DO in OV> 11/25/24 1530 DD/ 1428 TD/TT: 11/17/24 1452 Vba Developer: Trevor Medina ANP IMG BI PROCEDURES Final Result * Iron And Total Iron Binding Capacity (11/12/2024 8:04 AM EST) Iron 74 30 - 160 mcg/dL [facility] Total Iron Binding Capacity 265 228 - 428 mcg/dL [facility] Percent Iron Saturation 28 15 - 50 % [facility] Unsaturated Iron Binding 191 ug/dL [facility] Blood Venous blood specimen / Unknown 11/12/2024 8:04 AM EST 11/12/2024 11:03 AM EST Trevor Medina [facility] LAB BLOOD ORDERABLES Final Resul t Performing Organization Address [facility] Phone Number [facility] [address] [place] [phone] * Hemoglobin A1c (11/12/2024 8:04 AM EST) Hemoglobin A1c 5.6 <6.0 % [facility] Comment:Hemoglobin A1C Refer ence Range Adults: 4.8 - 6.0 % Non diabetic: < 6.0 % Goal: < 7.0 %Additional Action Suggested: > 8.0 %Note: Hemoglobin A1c results are invalid for patients with abnormal amounts of HbF. Blood transfusions may impact the HbA1c concentration in the patient sample. Estimated Average Glucose 114 mg/dL [facility] Comment:eAG = Estimated ave rage glucose which is %A1C expressed asaverage glucose, using the formula of the X5Y-BphubyqBnffjnc Glucose study (ADAG), Diabetes Care, Vol.31,#8,2007 Blood Venous blood specimen / Unknown 11/12/2024 8:04 AM EST 11/12/2024 11:03 AM EST us Trevor Medina ANP LAB BLOOD ORDERABLES Final Resul t Performing Organization Address [facility] de Phone Number [facility] [address] [place] [phone] * Hepatic Function Panel (11/12/2024 8:04 AM EST) Bilirubin, Total 0.7 0.0 - 1.0 mg/dL [facility] Bilirubin, Direct 0.2 0.0 - 0.5 mg/dL [facility] Aspartate Amino Transferase 27 5 - 31 U/L [facility] Alanine Aminotransferase 8 0 - 31 U/L [facility] Total Protein 6.8 6.5 - 8.0 g/dL [facility] Albumin Level 3.6 3.5 - 5.0 g/dL [facility] Alkaline Phosphatase 60 39 - 117 U/L [facility] Blood Venous blood specimen / Unknown 11/12/2024 8:04 AM EST 11/12/2024 11:03 AM EST Trevor Medina ANP LAB BLOOD ORDERABLES Final Resul t Performing Organization Address [facility] de Phone Number [facility] [address] [place] [phone] * (ABNORMAL) Lipid Panel, Standard (11/12/2024 8:04 AM EST) Triglycerides 131 <150 mg/dL [facility] Comment:Desirable Triglyceri de: less than 150 mg/dLBorderline High Triglyceride 150-199 mg/dLHigh Triglyceride: 200-499 mg/dLVery High Triglyceride: greater than or equal to 5OO mg/dL Cholesterol 203(H) <200 mg/dL [facility] Comment:Desirable Cholestero l: less than 200 mg/dLBorderline High Cholesterol: 200-239 mg/dLHigh Cholesterol: greater than 239 mg/dL LDL Cholesterol Calculated 124(H) <100 mg/dL [facility] Comment:Desirable LDL: less than 100 mg/dLNear Optimal/Above Optimal LDL: 110- 129 mg/dLBorderline High LDL: 130-159 mg/dLHigh LDL: 160-189 mg/dLVery High LDL: greater than or equal to 190 mg/dL HDL Cholesterol 53 >40 mg/dL [facility] Comment:Desirable HDL: great er than 40 mg/dL Note: This HDL assay may give artificially low results in patients with liver disease. Blood Venous blood specimen / Unknown 11/12/2024 8:04 AM EST 11/12/2024 11:03 AM EST us Trevor Medina ANP LAB BLOOD ORDERABLES Final Resul t Performing Organization Address [facility] Co de Phone Number [facility] [address] [place] [phone] * Hepatitis C Antibody with Reflex to HCV, RNA, Quantitative, Real-Time PCR (11/16/2023 9:23 AM EST) Hepatitis C Antibody Nonreactive Nonreactive [facility] Comment:Antibodies to HCV no t detected; does not exclude early acuteHCV infection. Blood Venous blood specimen / Unknown 11/16/2023 9:23 AM EST 11/16/2023 11:17 AM EST Trevor Medina ANP LAB BLOOD ORDERABLES Final Resul t Performing Organization Address [facility]/ZIP Co de Phone Number [facility] [address] [place] [phone] * HIV Ab/Ag ([facility]) (07/12/2023 9:10 AM EDT) Pathologist [facility] HIV AB/AG Nonreactive Nonreactive [facility] Comment:HIV-1 p24 Ag and/or HIV-1/HIV-2 Ab not detected.A test result that is nonreactive does not exclude thepossibility of exposure to or infection with HIV-1 and/orHIV-2. Nonreactive results in this assay for individualswith prior exposure to HIV-1 and/or HIV-2 may be due toantigen and antibody levels that are below the limit ofdetection of this assay.The [employer] HIV Ag/Ab Combo assay result andsupplemental assay results should be interpreted inconjunction with the patient's clinical presentation,history and other laboratory results. If the results areinconsistent with clinical evidence, additional testing issuggested to confirm the result. 07/12/2023 9:10 AM EDT 07/12/2023 11:28 AM EDT us Trevor Medina ANP LAB BLOOD ORDERABLES Final Resul t Performing Organization Address [facility]/ZIP Co de Phone Number [facility] [address] [place] [phone] * Hm Colonoscopy (12/17/2014) Colonoscopy Normal Normal us Historical Provider HEALTH MAINTENANCE Final Result * Pap Smear (12/31/2013) Pap Negative for intraephithelial lesion or malignancy Negative for intraephithelial lesion or malignancy, Other HPV Undetected Undetected, Indeterminate, Quantitative, Not Detected Historical Provider HEALTH MAINTENANCE Final Result from Last 3 Months or Most Recently Relevant to Health Maintenance Insurance C3 [facility] MEDICAID STAND ADULT Care Teams Gang Bore Operator Relationship Specialty Start Date End Date Trevor Medina ANP [address] [place] [phone] PCP - General Family Medicine 06/20/21 Romeo Echavarria, SUKHWINDER [address] [place] [phone] Steam Frame OperatorNurse Specialist 12/25/24
--- OUTSIDE RECORDS SUMMARY | 2025-02-05 10:56 | XMS_ITS | Encounter Summary ---
Author Organization [employer] Address [address] [facility] 7t [place] [address] Care Team Providers Care Practice Office Associate Name Role Phone Evy Christopher Primary Care Provider [phone] Romeo Echavarria RN Unavailable [phone] Reason for Visit * Reason Onset Date Comments Returning Call 03/14/2024 Encounter Details Date Type Department Care Team ([facility] Contact Info) Description 03/14/2024 Telephone [facility] [address] [place], [place] [phone] Evy Christopher ANP [address] [place] [address] Returning Call Social History Tobacco Use Types [...] from pt stating received a call but handbook writer sees nothing tasked. documented in this encounter Plan of Treatment Upcoming Encounters Date Type Department Care Team (Late st Contact Info) Description 02/09/2025 2:00 PM EDT Office Visit [facility] [address] [place] [address] Evy Christopher ANP [address] [place] [address] documented as of this encounter Visit Diagnoses Not on filedocumented in this encounter Additional Health Concerns Assessment Noted Time PHQ-9 Depression Total Score: 13 023 2:43 PM EST documented as of this encounter Care Teams Practice Office Associate Relationship Specialty Start Date End Date Evy Christopher ANP [address] [place] [address] PCP - General Family Medicine 06/20/21 Romeo Echavarria, RN [address] [place] [address] Special Event AssistantDeli Bakery Clerk 12/25/24 documented as of this encounter
--- OUTSIDE RECORDS SUMMARY | 2025-02-05 10:56 | XMS_ITS | Encounter Summary ---
Author Organization [employer] Address [address] [facility] 7t [place] [address] Care Team Providers Care Tie Bucker Name Role Phone Evy Christopher Primary Care Provider [phone] Romeo Echavarria RN Unavailable [phone] Encounter Details Date Type Department Care Team ([facility] Contact Info) Description 12/04/2022 Telephone [facility] [address] [place] [phone] Evy Christopher ANP [address] [place] [phone] Social History Tobacco Use Types Packs/Day Years [...] Upcoming Encounters Date Type Department Care Team ([facility] Contact Info) Description 02/09/2025 2:00 PM EDT Office Visit [facility] [address] [place] [address] [phone] Evy Christopher ANP [address] [place] [phone] documented as of this encounter Visit Diagnoses Not on filedocumented in this encounter Care Teams Tie Bucker Relationship Specialty Start Date End Date Evy Christopher ANP [address] [place] [address] PCP - General Family Medicine 06/20/21 Romeo Echavarria, SUKHWINDER [address] [place] [phone] Humanities CoordinatorRental Management Trainee 12/25/24 documented as of this encounter
--- OUTSIDE RECORDS SUMMARY | 2025-02-05 10:56 | XMS_ITS | Encounter Summary ---
Author Organization [employer] Address [address] [facility] [address] [facility] [address] 7[address] [place] [address] Care Team Providers Care Inclusion Paraeducator Name Role Phone Evy Christopher ANP Primary Care Provider [phone] Romeo Echavarria RN Unavailable [phone] Reason for Visit * Reason Onset Date Comments Referral 01/22/2025 Encounter Details Date Type Department Care Team ([facility] st Contact Info) Description 01/22/2025 Telephone [facility] [address] [place], [place] [phone] Eyv Christopher ANP [address] [place] [address] Referral Social History Tobacco Use Types Packs/Day [...] encounter Miscellaneous Notes * Telephone Encounter - Azeb Underwood - 01/22/2025 2:37 PM EDT Tc from pt requesting referral to be sent to [facility] FAX [phone] documented in this encounter Plan of Treatment Upcoming Encounters Date Type Department Care Team (Late st Contact Info) Description 02/09/2025 2:00 PM EDT Office Visit [facility] [address] [place] [address] Evy Christopher ANP [address] [place] [address] documented as of this encounter Visit Diagnoses Not on filedocumented in this encounter Additional Health Concerns Assessment Noted Time PHQ-9 Depression Total Score: 2 05/23/20 24 9:49 AM EDT documented as of this encounter Care Teams Inclusion Paraeducator Relationship Specialty Start Date End Date Evy Christopher ANP [address] [place] [address] PCP - General Family Medicine 06/20/21 Romeo Echavarria, SUKHWINDER [address] [facility] [place] [address] Typing SecretarySupervisor Bit And Shank Department 12/25/24 documented as of this encounter
--- OUTSIDE RECORDS SUMMARY | 2025-02-05 10:56 | XMS_ITS | Encounter Summary ---
Author Organization [employer] Address [address] [place] [address] Care Team Providers Care Floorwalker Name Role Phone Evy Christopher Primary Care Provider [phone] Romeo Echavarria RN Unavailable [phone] Reason for Visit * Reason Onset Date Comments Care Management 02/02/2025 [facility]- Follow up call # 2 Encounter Details Date Type Department Care Team ([facility] st Contact Info) Description 02/02/2025 Telephone [facility] [address] [place], [place] [phone] Evy Christopher ANP [address] [place], [place] [phone] Care Management ([facility]- Follow up call # 2) Social History Tobacco Use Types Packs/Day Years [...] the past 12 months, has t he d[employer], gas, oil or water [employer] threatened to shut off services in your [...] Telephone Encounter - Romeo Echavarria RN - 02/02/2025 11:17 AM EDT MARCY Echavarria RN and MANDY Masterson placed outbound call to patient. Patient's name, and address confirmed. Patient states is doing well with no recent illnesses or emergency room visits. CM informedpatient that PCP placed physical therapy referral for her osteoarthritis of both knees as requested. CM informed that PCP refilled her fluoxetine 20 mg capsule as requested, pt is aware and already pi cked up the Rx. Pt reports that a NEW CAR SALES MANAGER company is coming tomorrow to her home for an evaluation at 11:30 AM. Pt reports that a demonstrator electric gas appliances is coming to her home for an evaluation on 02/05 @ 11 AM. Pt reports that she has an appointment today at 1 pm for her stomach at [address] CM reminded pt ofappointment with PCP on 02/09 @ 2PM, pt wasn't aware. Pt reports that her anxiety/depression is moreor less, taking her medication, not interested in services. Pt reports that she's dealing with her chronic conditions and pain as able to with her prescribed medications. No further questions or concerns. CM reinforced direct contact information for any additional questions or concerns. Education provided on [facility] located in [facility] of [facility]. Patient provided with after-hours line for [facility], , which offer night time triage service and option to transfer to financial reporting consultant provider if needed. Patient verbalizes understanding, and able to r epeat back to literary writer. A follow up call will be placed within 10 days, patient agrees with plan. documented in this encounter Plan of Treatment Upcoming Encounters Date Type Department Care Team (Late st Contact Info) Description 02/09/2025 2:00 PM EDT Office Visit [facility] [address] [place], [place] [phone] Evy Christopher ANP [address] [place] [address] documented as of this encounter Visit Diagnoses Not on filedocumented in this encounter Additional Health Concerns Assessment Noted Time PHQ-9 Depression Total Score: 2 05/23/20 24 9:49 AM EDT documented as of this encounter Care Teams Floorwalker Relationship Specialty Start Date End Date Evy Christopher ANP [address] [place], [place] [phone] PCP - General Family Medicine 06/20/21 Romeo Echavarria, RN [address] [place] [address] Machine Silk Screen PrinterProduction Assembler 12/25/24 documented as of this encounter
--- OUTSIDE RECORDS SUMMARY | 2025-02-05 10:56 | XMS_ITS | Encounter Summary ---
Author Organization [employer] Address [address] [facility] [address] [place] [address] Care Team Providers Care Servicing Rep Name Role Phone Evy Crhistopher Primary Care Provider [phone] Romeo Echavarria RN Unavailable [phone] Reason for Visit * Reason Comments Med Refill Encounter Details Date Type Department Care Team ([facility] Contact Info) Description 10/26/2024 Refill [facility] MEDICINE [address] [place], [place] [phone] Evy Christopher ANP [address] [place] [address] Social History Tobacco Use Types Packs/Day Years [...] Description 02/09/2025 2:00 PM EDT Office Visit [facility] MEDICINE [address] [place] [address] Evy Christopher ANP [address] [place] [address] documented as of this encounter Visit Diagnoses Not on filedocumented in this encounter Additional Health Concerns Assessment Noted Time PHQ-9 Depression Total Score: 2 05/23/20 24 9:49 AM EDT documented as of this encounter Care Teams Servicing Rep Relationship Specialty Start Date End Date Evy Christopher ANP [address] [place] [address] PCP - General Family Medicine 06/20/21 Romeo Echavarria, SUKHWINDER [address] [place] [address] Grain Mill Products InspectorData Entry Representative 12/25/24 documented as of this encounter
--- OUTSIDE RECORDS SUMMARY | 2025-02-05 10:56 | XMS_ITS | Encounter Summary ---
Author Organization [employer] Address [address] [facility] [address] [place] [address] Care Team Providers Care Laboratory Mechanic Helper Name Role Phone Evy Christopher Primary Care Provider [phone] Romeo Echavarria RN Unavailable [phone] Reason for Visit * Reason Onset Date Comments Call Back Request 04/23/2024 Encounter Details Date Type Department Care Team ([facility] st Contact Info) Description 04/23/2024 Telephone [facility] MEDICINE [address] [place], [place] [phone] Evy Christopher ANP [address] [place], [place] [phone] Call Back Request Social History Tobacco Use [...] 2:00 PM EDT Office Visit [facility] MEDICINE [address] [place] [phone] Evy Christopher ANP [address] [place] [address] documented as of this encounter Visit Diagnoses Not on filedocumented in this encounter Additional Health Concerns Assessment Noted Time PHQ-9 Depression Total Score: 13 023 2:43 PM EST documented as of this encounter Care Teams Laboratory Mechanic Helper Relationship Specialty Start Date End Date Evy Christopher ANP [address] [place] [address] PCP - General Family Medicine 06/20/21 Romeo Echavarria, SUKHWINDER [address] [place] [address] Diet ConsultantVice President Global Digital Marketing 12/25/24 documented as of this encounter
--- OUTSIDE RECORDS SUMMARY | 2025-02-05 10:56 | XMS_ITS | Clinical Summary ---
Author Organization [facility] Address [address] [place] [address] Phone Care Team Providers Care Application Support Intern Name Role Phone Evy Christopher NP Primary Care Provider Allergies Active Allergy Reactions Criticality Noted Date [...] adnexal mass, this pain is not likely Internet Specialist in nature. As such, there is no [...] Encounters Date Type Department Care Team Description 02/02/2025 1:00 PM EDT Office Visit [facility] - [place] [address] [phone] Mily Cardenas MD Gastroesophageal reflux disease, unspecified whether esophagitis present (Primary Dx); Hiatal hernia; Obesity, Class I, BMI 30-34.9 01/20/2025 Telephone Bariatric Surgery [facility] [address] [phone] Chari Stanley [place] 01/19/2025 7:15 AM EDT - 01/19/2025 11:59 PM EDT Hospital Encounter [facility] Ultrasound [address] [place] [phone] Periumbilical abdominal pain Discharge Disposition: Home or Self Care 01/01/2025 2:30 PM EST Consult Bariatric Surgery - [place] [address] [phone] Mily Cardenas MD Periumbilical abdominal pain (Primary Dx); Gastroesophageal reflux disease, unspecified whether esophagitis present; Hiatal hernia 12/07/2024 8:15 PM EST - 12/07/2024 9:40 PM EST Emergency [facility] Emergency [address] [place] [phone] Acute pain of left shoulder (Primary Dx); Neck pain on left side Discharge Disposition: Home or Self Care 11/27/2024 Telephone Obstetrics and Gynecology [address] [phone] Tawny Arriaga CNM er visit from Last 3 Months Immunizations Name Administration Dates Next Due Hepatitis A-Hepatitis B Adul t (Twinrix) 18yo and older 04/19/2016,02/18/2014,01/15/2014 Hepatitis B (Tkppelw-Q-Mbxha , Recombivax HB-Adult) 19yo and older 09/27/2021 [...] LAPAROSCOPY, CHOLECYSTECTOMY BREAST REDUCTION 2005 Bilateral PROCEDURE: NM BREAST REDUCTION SALPINGOOPHORECTOMY 2016 Left PROCEDURE: NM LAPAROSCOPY W/RMVL ADNEXAL STRUCTURES; COMMENT: left salpingectomy only HYSTERECTOMY 02/2018 PROCEDURE: HISTORICAL HYSTERECTOMY; COMMENT: robotic TUBAL LIGATION PROCEDURE: HISTORICAL TUBAL LIGATION BREAST SURGERY 08/2020 PROCEDURE: NM BREAST AUGMENTATION WITH IMPLANT; COMMENT: in [place] OTHER SURGICAL HISTORY 08/2020 PROCEDURE: HISTORICAL PANNICULECTOMY; COMMENT: Rose Marie mendoza in [place] Medical History Medical History Date Comments Anemia [...] 5 5 Date Outcome GA Total Labor Labor/2nd/3rd Weight Sex Type Anes PTL Siobhan A1 [...] Sign Reading Time Taken Comments Blood Pressure 111/74 02/02/2025 12:59 PM EDT Pulse 87 02/02/2025 12:59 PM EDT Temperature 36.6 ??C (97.8 ??F) 02/02/2025 12:59 PM E DT Respiratory Rate 18 12/07/2024 5:51 PM EST Oxygen Saturation 99% 01/01/2025 2:09 PM EST Inhaled Oxygen Concentration - - Weight 85.3 kg (188 lb) 02/02/2025 12:59 PM EDT Height 160 cm (5' 3 ) 02/02/2025 12:59 PM EDT Body Mass Index 33.3 02/02/2025 12:59 PM EDT Plan of Treatment Upcoming Encounters Date Type Department Care Team (Late st Contact Info) Description 02/12/2025 8:45 AM EDT Office Visit Bariatric Surgery [facility] [address] [place] [phone] Paul Rod MD [address] [address] 05/04/2025 8:30 AM EDT Office Visit Bariatric Surgery [facility] [address] [phone] Mily Cardenas MD [address] [phone] Health Maintenance Due Date Last Done Comments [...] age to complete this topic Meningococcal B Vaccine Aged Out No l onger eligible based on patient's age to complete this topic RSV Immunization Patients Under 20 months Aged Out No longer eligible based on patient's age to complete this topic Varicella Vaccines Aged Out No longer eligible based on patient's age to complete this topic Procedures Procedure Name Priority Date/Time Associated Diagnosis Comments US ABDOMEN LIMITED Routine 01/19/2025 7: 42 AM EDT Periumbilical abdominal pain XR CHEST 2 VIEWS STAT 12/07/2024 5:35 [...] EST ECG ANNOTATED 12/07/2024 ECG ANNOTATED 12/07/2024 HEPATITIS C SCREENING Routine 02/01/2022 HIV SCREENING Routine 02/01/2022 from Last 3 Months or Most Recently Relevant to Health Maintenance Results * US Abdomen Limited (01/19/2025 7:42 AM EDT) Anatomical Region Laterality Modality Body Ultrasound 01/19/2025 11:4 7 AM EDT Impressions 01/19/2025 11:48 AM EDT Impression: No sonographic abnormality identified in the area of clinical concern. Specifically, no abdominal wall hernia is seen. Telerad PETER ([id number]) -------- FINAL REPORT -------- Dictated By: Maranda Branch Dictated Date: 01/19/2025 11:47 ET Assigned Physician: Maranda Branch Reviewed and Electronically Signed By: Maranda Branch Signed Date: 01/19/2025 11:48 ET Workstation ID: [id number] Transcribed By: Self Edit Transcribed Date: 01/19/2025 11:47 ET Narrative 01/19/2025 11:48 AM EDT History: Suprapubic pain. Question of abdominal wall hernia. Findings: High resolution real-time imaging of the anterior abdomen was performed, targeted to the area of clinical concern which is in the midline. The exam was performed without and with Valsalva maneuver. No disruption of the anterior abdominal wall is identified. No hernia is seen. No abnormal mass or fluid collection is identified. Procedure Note Maranda Branch MD - 01/19/2025 History: Suprapubic pain. Question of abdominal wall hernia. Findings: High resolution real-time imaging of the anterior abdomen was performed,targeted to the area of clinical concern which is in the midline. The examwas performed without and with Valsalva maneuver. No disruption of the anterior abdominal wall is identified. No hernia isseen. No abnormal mass or fluid collection is identified. IMPRESSION: Impression: No sonographic abnormality identified in the area of clinical concern.Specifically, no abdominal wall hernia is seen. Telerad PA ([id number]) -------- FINAL REPORT -------- Dictated By: Maranda Branch Dictated Date: 01/19/2025 11:47 ET Assigned Physician: Maranda Branch Reviewed and Electronically Signed By: Maranda Branch Signed Date: 01/19/2025 11:48 ET Workstation ID: [id number] Transcribed By: Self Edit Transcribed Date: 01/19/2025 11:47 ET us Mily Cardenas MD IMG US PROCEDURES Final Result * XR Chest 2 Views (12/07/2024 5:35 PM EST) Anatomical Region Laterality Modality Body Radiographic Leigh ging 12/08/2024 8:21 AM EST Impressions 12/08/2024 8:22 AM EST No acute chest disease. -------- FINAL REPORT -------- Dictated By: Daniel Soriano Dictated Date: 12/08/2024 08:21 ET Assigned Physician: Daniel Soriano Reviewed and Electronically Signed By: Daniel Soriano Signed Date: 12/08/2024 08:22 ET Workstation ID: [id number] Transcribed By: Self Edit Transcribed Date: 12/08/2024 [...] the visualized upper abdomen. Procedure Note Daniel Soriano MD - 12/08/2024 EXAMINATION: CHEST CLINICAL INFORMATION: Chest [...] Signed Date: 12/08/2024 08:22 ET Workstation ID: [id number] Transcribed By: Self Edit Transcribed Date: 12/08/2024 [...] GEMUSE QTc 460 ms GEMUSE P Wave [place] 56 degrees GEMUSE R [place] 34 degrees GEMUSE T [place] 10 degrees GEMUSE ECG Interpretation Normal sinus rhythm Nonspecific T wave abnormality Abnormal ECG When compared with ECG of 07-DEC-2024 12:51, No significant change was found Confirmed by TAMIKA FLORES ([id number]) on 12/07/2024 5:55:47 PM GEMUSE 12/07/2024 2:43 PM EST 12/07/2024 5:55 PM EST us Godwin Ordonez MD ECG ORDERABLES Final Resul t GEMUSE * Troponin I high sensitivity (12/07/2024 2:38 PM EST) Only the most recent of2 resultswithin the time period is included. [facility] High Sensitivity Troponin I <3 <=54 ng/L LAB CHEMISTRY METHOD 12/07/2024 3:[address] [facility] Blood Venous blood specimen / Unknown Venipuncture / Unknown 12/07/2024 2:38 PM EST 12/07/2024 3:[address] [facility] - 12/07/2024 3:45 PM EST High levels of biotin in samples may falsely decrease hsTroponin values. ??Use caution when interpreting hsTroponin results in patients taking biotin who exhibit renal impairment (eGFR <60) or in patients taking more than 20 mg/day of biotin. us Godwin Ordonez MD LAB BLOOD ORDERABLES Final Result [facility] [address] [place] [address], * (ABNORMAL) CBC auto differential (12/07/2024 1:07 PM EST) [facility] WBC 8.1 4.8 - 10.8 K/mcL LAB HEMETOLOGY METHOD 12/07/2024 1:[address] [facility] RBC 3.80 3.80 - 4.80 M/mcL LAB HEMETOLOGY METHOD 12/07/2024 1:[address] [facility] Hemoglobin 11.2(L) 11.5 - 16.0 g/dL LAB HEMETOLOGY METHOD 12/07/2024 1:[address] [facility] Hematocrit 35.8 35.0 - 47.0 % LAB HEMETOLOGY METHOD 12/07/2024 1:[address] [facility] MCV 94.7 79.0 - 98.0 FL LAB HEMETOLOGY METHOD 12/07/2024 1:[address] [facility] MCH 29.6 27.0 - 32.0 pcg LAB HEMETOLOGY METHOD 12/07/2024 1:[address] [facility] MCHC 31.3(L) 32.0 - 37.0 g/dL LAB HEMETOLOGY METHOD 12/07/2024 1:[address] [facility] RDW 12.7 11.0 - 15.0 % LAB HEMETOLOGY METHOD 12/07/2024 1:[address] [facility] Platelets 273 130 - 400 K/mcL LAB HEMETOLOGY METHOD 12/07/2024 1:[address] [facility] MPV 10.5 7.0 - 11.0 FL LAB HEMETOLOGY METHOD 12/07/2024 1:[address] [facility] NRBC 0.0 <1.0 % LAB HEMETOLOGY METHOD 12/07/2024 1:[address] [facility] NRBC Absolute 0.00 <0.10 K/mcL LAB HEMETOLOGY METHOD 12/07/2024 1:[address] [facility] Neutrophils Relative 70.6 % LAB HEMETOLOGY METHOD 12/07/2024 1:[address] [facility] Lymphocytes Relative 21.8 % LAB HEMETOLOGY METHOD 12/07/2024 1:[address] [facility] Monocytes Relative 4.8 % LAB HEMETOLOGY METHOD 12/07/2024 1:[address] [facility] Eosinophils Relative 1.7 % LAB HEMETOLOGY METHOD 12/07/2024 1:[address] [facility] Basophils Relative 0.6 % LAB HEMETOLOGY METHOD 12/07/2024 1:[address] [facility] Immature Granulocytes Relative 0.5 % LAB HEMETOLOGY METHOD 12/07/2024 1:[address] [facility] Neutrophils Absolute 5.68 1.50 - 7.00 K/mcL LAB HEMETOLOGY METHOD 12/07/2024 1:41 PM EST [facility] Lymphocytes Absolute 1.76 1.00 - 5.00 K/[facility] LAB HEMETOLOGY METHOD 12/07/2024 1:41 PM EST [facility] Monocytes Absolute 0.39 0.20 - 1.00 K/[facility] LAB HEMETOLOGY METHOD 12/07/2024 1:41 PM EST [facility] Eosinophils Absolute 0.14 0.00 - 0.50 K/[facility] LAB HEMETOLOGY METHOD 12/07/2024 1:41 PM EST [facility] Basophils Absolute 0.05 0.00 - 0.20 K/[facility] LAB HEMETOLOGY METHOD 12/07/2024 1:41 PM EST [facility] Immature Granulocytes Absolute 0.04(H) 0.00 - 0.03 K/[facility] LAB HEMETOLOGY METHOD 12/07/2024 1:41 PM EST [facility] Blood Venous blood specimen / Unknown Venipuncture / Unknown 12/07/2024 1:07 PM EST 12/07/2024 1:31 PM EST Godwin Ordonez MD LAB BLOOD ORDERABLES Final Result Performing Organization Address City/[facility]/ZIP Co de Phone Number [facility] [address] [place] [address], * B-type natriuretic peptide (12/07/2024 1:07 PM EST) BNP 16 <=100 pcg/mL LAB CHEMISTRY METHOD 12/07/2024 2:07 PM EST [facility] Blood Venous blood specimen / Unknown Venipuncture / Unknown 12/07/2024 1:07 PM EST 12/07/2024 1:31 PM EST Godwin Ordonez MD LAB BLOOD ORDERABLES Final Result [facility] [address] [place] [address], [place] [phone] * (ABNORMAL) Magnesium (12/07/2024 1:07 PM EST) [facility] Magnesium 1.8(L) 1.9 - 2.6 mg/dL LAB CHEMISTRY METHOD 12/07/2024 2:11 PM EST [facility] Blood Venous blood specimen / Unknown Venipuncture / Unknown 12/07/2024 1:07 PM EST 12/07/2024 1:31 PM EST Godwin Ordonez MD LAB BLOOD ORDERABLES Final Result Performing Organization Address [facility] Co de Phone Number [facility] [address] [place] [address], [place] [phone] * Lipase (12/07/2024 1:07 PM EST) [facility] Lipase 55 13 - 75 unit/L LAB CHEMISTRY METHOD 12/07/2024 2:11 PM EST [facility] Blood Venous blood specimen / Unknown Venipuncture / Unknown 12/07/2024 1:07 PM EST 12/07/2024 1:31 PM EST Godwin Ordonez MD LAB BLOOD ORDERABLES Final Result Performing Organization Address [facility]/ZIP Co de Phone Number [facility] [address] [place] [address], [place] [phone] * (ABNORMAL) Comprehensive metabolic panel (12/07/2024 1:07 PM EST) [facility] Sodium 138 133 - 145 mmol/L LAB CHEMISTRY METHOD 12/07/2024 2:11 PM EST [facility] Potassium 4.0 3.5 - 5.5 mmol/L LAB CHEMISTRY METHOD 12/07/2024 2:11 PM EST [facility] Chloride 105 96 - 110 mmol/L LAB CHEMISTRY METHOD 12/07/2024 2:[address] [facility] CO2 27 21 - 32 mmol/L LAB CHEMISTRY METHOD 12/07/2024 2:[address] [facility] Anion Gap 6 3 - 11 LAB CHEMISTRY METHOD 12/07/2024 2:[address] [facility] Glucose 148(H) 70 - 100 mg/dL LAB CHEMISTRY METHOD 12/07/2024 2:[address] [facility] BUN 9 5 - 25 mg/dL LAB CHEMISTRY METHOD 12/07/2024 2:[address] [facility] Creatinine 0.71 0.50 - 1.10 mg/dL LAB CHEMISTRY METHOD 12/07/2024 2:[address] [facility] eGFR 106 >=60 mL/min/1. 73m2 LAB CHEMISTRY METHOD 12/07/2024 2:[address] [facility] Comment:Calculation based on the??Chronic Kidney Disease Epidemiology Collaboration (CKD-EPI) equation refit??without adjustment for race. BUN/Creatinine Ratio 12.7 LAB CHEMISTRY METHOD 12/07/2024 2:[address] [facility] Calcium 8.9 8.5 - 10.5 mg/dL LAB CHEMISTRY METHOD 12/07/2024 2:[address] [facility] AST (SGOT) 28 10 - 42 unit/L LAB CHEMISTRY METHOD 12/07/2024 2:[address] [facility] ALT (SGPT) 21 10 - 60 unit/L LAB CHEMISTRY METHOD 12/07/2024 2:[address] [facility] Alkaline Phosphatase 68 42 - 121 unit/L LAB CHEMISTRY METHOD 12/07/2024 2:[address] [facility] Total Protein 6.9 6.0 - 8.0 g/dL LAB CHEMISTRY METHOD 12/07/2024 2:[address] [facility] Albumin 3.2 3.2 - 5.0 g/dL LAB CHEMISTRY METHOD 12/07/2024 2:11 PM EST [facility] Total Bilirubin 0.9 0.0 - 1.4 mg/dL LAB CHEMISTRY METHOD 12/07/2024 2:11 PM EST [facility] Blood Venous blood specimen / Unknown Venipuncture / Unknown 12/07/2024 1:07 PM EST 12/07/2024 1:31 PM EST Godwin Ordonez MD LAB BLOOD ORDERABLES Final Result [facility] [address] [place] [address], [place] [phone] * ECG-Annotated (12/07/2024) Only the most recent of2 resultswithin the time period is included. Provider Onbase ECG ORDERABLES Final Result * HIV Screening (02/01/2022) HIV Screening Abstracted Historical Provider HEALTH MAINTENANCE Final Result * Hepatitis C Screening (02/01/2022) Hepatitis C Screening Abstracted Historical Provider HEALTH MAINTENANCE Final Result from Last 3 Months or Most Recently Relevant to Health Maintenance Insurance MEDICAID - [place] Care Teams Application Support Intern Relationship Specialty Start Date End Date Evy Christopher NP [address] [place] [address] PCP - General 10/26/24
--- OUTSIDE RECORDS SUMMARY | 2025-02-05 10:56 | XMS_ITS | Encounter Summary ---
Author Organization [employer] Address [address] [place] [address] Care Team Providers Care Laborer Tree Tapping Name Role Phone Evy Christopher Primary Care Provider Romeo Echavarria RN Unavailable [phone] Reason for Visit * Reason Onset Date Comments Medication Question 09/26/2023 Encounter Details Date Type Department Care Team ([facility] Contact Info) Description 09/26/2023 Telephone [facility] MEDICINE [address] [place], [place] [phone] Evy Christopher ANP [address] [place] [address] Medication Question Social History Tobacco Use Types [...] being too nervous. Please contact pt at [phone] Congolese Speaker documented in this encounter Plan of Treatment Upcoming Encounters Date Type Department Care Team (Late st Contact Info) Description 02/09/2025 2:00 PM EDT Office Visit [facility] MEDICINE [address] [place] [address] Evy Christopher ANP [address] [place] [address] documented as of this encounter Visit Diagnoses Not on filedocumented in this encounter Additional Health Concerns Assessment Noted Time PHQ-9 Depression Total Score: 13 023 2:43 PM EST documented as of this encounter Care Teams Laborer Tree Tapping Relationship Specialty Start Date End Date Evy Christopher ANP [address] [place] [phone] PCP - General Family Medicine 06/20/21 Romeo EchavarriaSUKHWINDER [address] [place] [address] [place] [address] Envelope MakerScrum Master 12/25/24 documented as of this encounter
--- OUTSIDE RECORDS SUMMARY | 2025-02-05 10:56 | XMS_ITS | Encounter Summary ---
Author Organization [employer] Address [address] 7[address] [place] [address] Care Team Providers Care Curator Of Collections Name Role Phone Trevor Medina JORGE A Primary Care Provider [phone] Romeo Echavarria RN Unavailable [phone] Encounter Details Date Type Department Care Team (Late st Contact Info) Description 02/05/2025 Orders Only [facility] External Provider, [facility] Social History Tobacco Use Types Packs/Day Years [...] Description 02/09/2025 2:00 PM EDT Office Visit [facility] [address] [place] [address] Trevor Medina ANP [address] [place] [address] documented as of this encounter Procedures Procedure Name Priority Date/Time Associated Diagnosis Comments GLUCOSE, WHOLE BLOOD Routine 02/05/2025 10:48 AM EDT XR CHEST 2 VIEWS Routine 02/05/2025 9:58 AM EDT SARS COV2/INFLUENZA A/B AND RSV RNA QL NAAT Routine 02/05/2025 9:32 AM EDT documented in this encounter Results * Glucose, Whole Blood (02/05/2025 10:48 AM EDT) Glucose, Whole Blood 94 60 - 115 mg/dL [facility] Comment:METER #: [id number] 02/05/2025 10:4 8 AM EDT 02/05/2025 10:51 AM EDT us Generic External Data Provider LAB BLOOD ORDERAB LES Final Result [facility] [address] [place] [address] [phone] * XR Chest 2 Views (02/05/2025 9:58 AM EDT) Anatomical Region Laterality Modality Chest Radiographic Leigh ging 02/05/2025 9:58 AM EDT Narrative 02/05/2025 10:13 AM EDT ? [facility] ?[address] ?[place] [address] ?XRay Report ? Signed ? Patient: Afua Hector L ?MR#: [id number] ? : 1980 ?Acct:[id number] ? Age/Sex: 44 / F ?ADM Date: 02/05/25 ? Loc: HO.ED ? Attending Dr: ? Ordering Physician: Generic ED Physician ?? Date of Service: 02/05/25 ?? Procedure(s): XR chest 2V ?? Accession Number(s): [id number] ? cc: Generic ED Physician; TREVOR MEDINA [...] DD/ 0958 ? TD/TT: 02/05/25 1008 ? Road Repairer: ? Procedure Note Pito Cruz - 02/05/[address] [place] [address] XRay Report Signed Patient: Afua Hector LMR#: [id number] : 1980Acct:[id number] Age/Sex: 44 / FADM Date: 02/05/25 Loc: HO.ED Attending Dr: Ordering Physician: Generic ED Physician Date of Service: 02/05/25 Procedure(s): XR chest 2V Accession Number(s): [id number] cc: Generic ED Physician; TREVOR MEDINA ADJUSTMENT EXAMINER EXAMINATION: XR CHEST CLINICAL INFORMATION: SOB COMPARISON: June 23, 2024. TECHNIQUE: 2 views of the chest were obtained. FINDINGS: No consolidation, pleural effusion or pneumothorax. Cardiomediastinal silhouette size is normal. Osseous structures are intact. XR/XR chest 2V IMPRESSION: No acute airspace disease. Stable chest. Electronically signed by: Angel Hull MD 02/05/2025 10:10 AM EDT RP Dictated By: Angel eD Santiago MD Signed By: <Electronically signed by Angel Flynn MDin OV> 02/05/25 1010 DD/ 0958 TD/TT: 02/05/[address] Repairer: [facility] External Provider IMG XR PROCEDURES Final Result * SARS-CoV-2 RNA, Influenza A/B, and RSV RNA, Ql NAAT (02/05/2025 9:32 AM EDT) Influenza A PCR NEGATIVE Negative [facility] Influenza B PCR NEGATIVE Negative [facility] Resp Syncy Virus RNA Qual PCR NEGATIVE Negative [facility] SARS COV2 PCR NEGATIVE Negative [facility] Comment:All test results mus t be [...] use by authorized laboratories.Testing performed on the [employer] GeneXpert utilizingreal-time RT-PCR.All SARS CoV2 and positive influenza A/B results arereported to [facility]. 02/05/2025 9:32 AM EDT 02/05/2025 9:35 AM EDT us Generic External Data Provider LAB MICROBIOLOGY - GENERAL ORDERABLES Final Result [facility] [address] [place] [address] [phone] documented in this encounter Visit Diagnoses Not on filedocumented in this encounter Additional Health Concerns Assessment Noted Time PHQ-9 Depression Total Score: 2 05/23/20 24 9:49 AM EDT documented as of this encounter Care Teams Curator Of Collections Relationship Specialty Start Date End Date Trevor Medina ANP [address] [place] [address] PCP - General Family Medicine 06/20/21 Romeo Echavarria, SUKHWINDER [address] [place] [address] Customs Opener Verifier PackerMetal Sheet Roller Operator 12/25/24 documented as of this encounter
--- OUTSIDE RECORDS SUMMARY | 2025-02-05 10:57 | XMS_ITS | Encounter Summary ---
Author Organization [employer] Address [address] 7[address] [place] [address] Care Team Providers Care Tappet Adjuster Name Role Phone Evy Christopher Primary Care Provider [phone] Romeo Echavarria RN Unavailable [phone] Reason for Visit * Reason Onset Date Comments Durable Medical Equipment 07/02/2024 Encounter Details Date Type Department Care Team (Late st Contact Info) Description 07/02/2024 Telephone [facility] [address] [place], [place] [phone] Evy Christopher ANP [address] [place] [address] Durable Medical Equipment Social History Tobacco Use [...] etcand if anything else is needed the supervisor dry cleaning will reach out to us. Please call patient and inform that [facility]aiah is working on processing the order. We have sent everything to them they are working on it. If she has any questions she can call them at [phone]. * Telephone Encounter - Tony Frias - 07/02/2024 3:53 PM EDT Tc from pt requesting status on CPAP machine. Please contact pt at [phone]. (Jamaican Speaker) documented in this encounter Plan of Treatment Upcoming Encounters Date Type Department Care Team (Late st Contact Info) Description 02/09/2025 2:00 PM EDT Office Visit [facility] [address] [place] [address] Evy Christopher ANP [address] [place] [address] documented as of this encounter Visit Diagnoses Not on filedocumented in this encounter Additional Health Concerns Assessment Noted Time PHQ-9 Depression Total Score: 2 05/23/20 24 9:49 AM EDT documented as of this encounter Care Teams Tappet Adjuster Relationship Specialty Start Date End Date Evy Christopher ANP [address] [place] [address] PCP - General Family Medicine 06/20/21 Romeo Echavarria, SUKHWINDER [address] [place] [address] Chute FeederLast Model Department Supervisor 12/25/24 documented as of this encounter
--- OUTSIDE RECORDS SUMMARY | 2025-02-05 10:57 | XMS_ITS | Encounter Summary ---
Author Organization [employer] Address [address] [facility] 7t [place] [address] Care Team Providers Care Job Placement Specialist Name Role Phone Evy Christopher ANP Primary Care Provider [phone] Romeo Echavarria RN Unavailable [phone] Reason for Visit * Reason Onset Date Comments FYI 06/29/2023 Encounter Details Date Type Department Care Team ([facility] st Contact Info) Description 06/29/2023 Telephone [facility] [address] [place], [place] [phone] Evy Christopher ANP [address] [place] [address] FYI Social History Tobacco Use Types Packs/Day [...] 06/29/2023 2:50 PM EDT Tre Mendoza at [facility] calling to inform PCP of care home plan of care stoppedbut patient will continue with PT for 2 visit in the week. documented in this encounter Plan of Treatment Upcoming Encounters Date Type Department Care Team (Late st Contact Info) Description 02/09/2025 2:00 PM EDT Office Visit [facility] [address] [place] [address] Evy Christopher ANP [address] [place] [address] documented as of this encounter Visit Diagnoses Not on filedocumented in this encounter Care Teams Job Placement Specialist Relationship Specialty Start Date End Date Evy Christopher ANP [address] [place] [phone] PCP - General Family Medicine 06/20/21 Romeo Echavarria, SUKHWINDER [address] [place] [phone] Nuclear Security OfficerBridge Game Director 12/25/24 documented as of this encounter
--- OUTSIDE RECORDS SUMMARY | 2025-02-05 10:57 | XMS_ITS | Encounter Summary ---
Author Organization [employer] Address [address] [facility] 7t [place] [address] Care Team Providers Care General Manager Land Department Name Role Phone Evy Christopher JORGE A Primary Care Provider [phone] Romeo Echavarria RN Unavailable [phone] Encounter Details Date Type Department Care Team (Late st Contact Info) Description 09/11/2024 Orders Only [facility] [address] [place] [address] Provider, MD Pearl Social History Tobacco Use [...] 2:00 PM EDT Office Visit [facility] [address] [place] [address] Evy Christopher ANP [address] [place] [address] documented as of this encounter Procedures Procedure [...] documented as of this encounter Care Teams General Manager Land Department Relationship Specialty Start Date End Date Evy Christopher ANP [address] [place] [address] PCP - General Family Medicine 06/20/21 Romeo Echavarria, SUKHWINDER [address] [place] [phone] Bowl TurnerJewel Gauger 12/25/24 documented as of this encounter
--- OUTSIDE RECORDS SUMMARY | 2025-02-05 10:57 | XMS_ITS | Encounter Summary ---
Author Organization [facility] Address [address] [place] [address] Care Team Providers Care Computer Builder Name Role Phone Evy Christopher NP Primary Care Provider [phone] Reason for Visit * Reason Comments Follow-up 1 month FU Encounter Details Date Type Department Care Team ([facility] Contact Info) Description 02/02/2025 1:00 PM EDT Office Visit Bariatric Surgery - [place] [address] [phone] Mily Cardenas MD [address] [phone] Gastroesophageal reflux disease, unspecified whether esophagitis present (Primary Dx); Hiatal hernia; Obesity, Class I, BMI 30-34.9 Social History Tobacco Use Types Packs/Day Years [...] 02/02/2025 12:59 PM E DT Respiratory Rate - - Oxygen Saturation - - Inhaled Oxygen Concentration - - Weight 85.3 kg (188 lb) 02/02/2025 12:59 PM EDT Height 160 cm (5' 3 ) 02/02/2025 12:59 PM EDT Body Mass Index 33.3 02/02/2025 12:59 PM EDT documented in this encounter Functional Status * [...] Fatoumata Carranza RN documented in this encounter Progress Notes * Mily Cardenas MD - 02/02/2025 1:00 PM EDT Afua presents for follow-up of acid reflux and hiatal hernia. Last seen a month ago and was started on Protonix which she states does help a little. Continue to encourage a GERD diet and lifestyle modifications. No indication for hiatal hernia repair and fundoplication at this time yet although did discuss this possibility if no alleviation of her symptoms with continued GERD diet and less modifications. Follow-up in 3 months. She is also interested in medical weight loss management. Will refer to Dr. Rod to discuss this. Discussed finding of ultrasound which did not show any umbilical hernia or other abnormality. Pain has improved. May have been due to scar tissue. documented in this encounter Plan of Treatment Upcoming Encounters Date Type Department Care Team (Late st Contact Info) Description 02/12/2025 8:45 AM EDT Office Visit Bariatric Surgery [facility] [address] [phone] Paul Rod MD [address] [phone] 05/04/2025 8:30 AM EDT Office Visit Bariatric Surgery [facility] [address] [phone] Mily Cardenas MD [address] [phone] documented as of this encounter Visit Diagnoses Diagnosis Gastroesophageal reflux disease, unspecified whether esophagitis present- Primary Hiatal hernia Diaphragmatic hernia without mention of obstruction or gangrene Obesity, Class I, BMI 30-34.9 documented in this encounter Care Teams Computer Builder Relationship Specialty Start Date End Date Evy Christopher NP [address] [place] [address] PCP - General 10/26/24 documented as of this encounter
--- NOTE | 2025-02-05 11:06 | PC.NURSE ---
Report received at this time. Taken over care at this time.
[2025-02-05 11:46] VITALS: BP 114/68; PULSE 82; RESP 18; TEMP 36.9; O2SAT 95
== END 2025-02-05 11:48 | disposition home or self-care (01) ==
PROVIDERS: Emergency Provider Emergency Medicine; PCP Nurse Practitioner Primary Care
DX: J06.9 Acute upper respiratory infection, unspecified (principal); J45.909 Unspecified asthma, uncomplicated; R09.81 Nasal congestion; R05.9 Cough, unspecified; R06.02 Shortness of breath; Z03.818 Encounter for observation for suspected exposure to other biological agents ruled out
CPT/HCPCS: 0241U; 71046; 82947; 94640; 99284

== ENCOUNTER → 2025-02-05 09:58 | Outpatient (BNV) | payer MEDICAID, SELFPAY | PROVIDERS: Emergency Provider Emergency Medicine; PCP Nurse Practitioner Primary Care; Visit Provider Radiology Diagnostic Radiology | DX: R06.02 Shortness of breath (principal) | CPT/HCPCS: 71046 ==

== ENCOUNTER 2025-03-25 07:33 | Emergency (ER) | payer MEDICAID, SELFPAY ==
--- NOTE | ~2025-03-25 | CT_ITS ---
EXAMINATION: CT ABDOMEN PELVIS WITHOUT IV CONTRAST HISTORY: R flank pain COMPARISON: Comparison is made with the prior examination dated 01/10/2025. TECHNIQUE: CT scan of the abdomen and pelvis was performed without contrast using standard departmental protocol. Coronal and sagittal reformatted images were generated and reviewed. Oral contrast material was not administered per department protocol. This CT exam was performed with one or more of the following dose reduction techniques: automated exposure control, adjustment of the mA and/or kV according to patient size, use of iterative reconstruction technique. DLP: 659 mGy-cm FINDINGS: LOWER CHEST: The visualized lung bases are clear. There is no pleural effusion. CARDIOVASCULATURE: The heart is normal in size. There is no pericardial effusion. LIVER: The liver is normal in size and contour. The liver has an unremarkable unenhanced appearance. GALLBLADDER / BILE DUCTS: The gallbladder is surgically absent. There is no intra or extrahepatic biliary ductal dilatation. SPLEEN: The spleen is normal in size and has an unremarkable unenhanced appearance. PANCREAS: The pancreas has an unremarkable unenhanced appearance. ADRENAL GLANDS: Unremarkable. KIDNEYS/RETROPERITONEUM: There is a 2 mm nonobstructing calculus at the lower pole of the right kidney. There is mild dilatation of the right renal collecting system. A 1-2 mm calculus is noted in the proximal ureter at the level of the superior endplate of L4. No left renal calculi are identified. There is no left hydronephrosis. LYMPH NODES: No retroperitoneal lymphadenopathy is identified in the abdomen or pelvis. VASCULATURE: The abdominal aorta demonstrates atherosclerotic calcification, but is normal in caliber. MESENTERY/PERITONEUM: No free fluid. No masses. There is no free intraperitoneal gas. STOMACH: There is a small hiatal hernia. The remainder of the stomach is collapsed. SMALL BOWEL: The small bowel is normal in caliber. COLON: There is a moderate amount of stool throughout the colon. APPENDIX: Normal. URINARY BLADDER/PELVIC ORGANS: The urinary bladder is collapsed, limiting evaluation. The patient is status post hysterectomy. BONES / SOFT TISSUES: No suspicious bony or soft tissue abnormalities. CT/CT abdomen pelvis wo IV con IMPRESSION: Mild dilatation of the right renal collecting system secondary to a 1-2 mm proximal ureteral calculus. 2 mm nonobstructing right renal calculus. Electronically signed by: Dev Valle MD 03/25/2025 09:19 AM EDT RP
[2025-03-25 07:56] VITALS: PULSE 63; RESP 16; TEMP 36.8; O2SAT 99; BMI 33.5
--- NOTE | 2025-03-25 07:58 | ED_ITS ---
HPI - Abdominal Pain General Chief Complaint: Back Pain/Injury Stated Complaint: Lower back pain radiating to abd Time Seen by Provider: 03/25/25 08:42 Source: patient and project facilitator (all interactions with this patient were facilitated with an [facility] horticulture instructor) Mode of arrival: ambulatory Limitations: language barrier (all interactions with this patient were facilitated with an [facility] horticulture instructor) History of Present Illness ED Provider: Mendy Booth PA-C HPI narrative: Patient is a 44 year old assigned female at with a history of fibromyalgia and kidney stones presenting to the emergency department today with right low back pain, right sided abdominal pain, nausea, and vomiting. Patient states that over the last 4 days she has had right lower back and abdominal pain with nausea and vomiting. Patient denies any dizziness, lightheadedness, fever, chills, blurry vision, double vision, loss of vision, chest pain, difficulty breathing, shortness of breath, back pain, night sweats, pain with urination, increased urinary frequency, increased urinary urgency, blood in her urine or stool, syncope or a near syncopal episode, recent trauma or falls, bowel incontinence, bladder incontinence, or any other complaints at this time. Related Data Home Medications ?Medication ?Instructions ?Recorded ?Confirmed omeprazole 20 mg capsule,delayed 20 mg PO DAILY@0630 10/06/21 01/10/25 release albuterol sulfate 90 mcg/actuation 2 puff inhalation Q4H PRN wheezing 05/09/24 01/10/25 aerosol inhaler (Ventolin HFA) rosuvastatin 40 mg tablet 40 mg PO BEDTIME 05/09/24 01/10/25 cyclobenzaprine 10 mg tablet 10 mg PO BEDTIME PRN muscle spasm 01/10/25 01/10/25 fluoxetine 20 mg capsule 20 mg PO DAILY 01/10/25 01/10/25 meloxicam 15 mg tablet 15 mg PO DAILY 01/10/25 01/10/25 Previous Rx's ?Medication ?Instructions ?Recorded acetaminophen 500 mg tablet 1,000 mg (2 x 500 mg) PO Q6H PRN 05/08/24 (Tylenol Extra Strength) fever or pain #20 tabs ibuprofen 200 mg capsule (Motrin 600 mg (3 x 200 mg) PO Q6H PRN 01/11/25 IB) pain (scale score 4-6) #30 caps ondansetron 4 mg disintegrating 4 mg PO Q8H PRN nausea and 01/11/25 tablet vomiting #15 tabs oxycodone 5 mg tablet 5 mg PO Q6H PRN Pain, 01/11/25 Moderate(Pain Scale 4-6) #16 tabs albuterol sulfate 90 mcg/actuation 1 puff inhalation QID PRN 02/05/25 aerosol inhaler shortness of breath or wheezing #6.7 grams inhalational spacing device #1 ea 02/05/25 Allergies Allergy/AdvReac Type Severity Reaction Status Date / Time No Known Allergies Allergy Verified 03/25/25 08:00 Review of Systems Constitutional: Reports no additional constitutional complaints, Denies chills, Denies fever(s) and Denies night sweats Eyes: Reports no additional eye complaints, Denies blurry vision, Denies change in vision, Denies diplopia, Denies eye discharge, Denies loss of vision and Denies eye pain Denies dizziness Cardiovascular: Reports no additional cardiovascular complaints, Denies chest pain, Denies lightheadedness, Denies Loss of Consciousness and Denies dyspnea Respiratory: Reports no additional respiratory complaints and Denies dyspnea Gastrointestinal: Reports no additional gastrointestinal complaints, Reports abdominal pain, Denies melena, Denies hematochezia, Denies change in bowel habits, Denies change in stool character, Reports nausea and Reports vomiting Genitourinary: Denies hematuria, Denies urinary frequency, Denies dysuria, Denies urinary incontinence, Denies urinary hesitancy and Denies urinary urgency Musculoskeletal: Reports no additional musculoskeletal complaints, Denies numbness and Denies tingling Comments: right sided low back pain Denies dizziness, Denies loss of vision, Denies numbness and Denies tingling Psychiatric: Reports no additional psychiatric complaints Endocrine: Reports no additional endocrine complaints Hematologic/Lymphatic: Reports no additional hematologic/lymphatic complaints Allergic/Immunologic: Reports no additional allergic/immunologic complaints PMFSH Past Medical History Attestation statement: The following information was validated with the patient. Source: old records reviewed and nursing notes reviewed Medical History Abdominal pain Transaminitis Chronic pain syndrome Fibromyalgia Hyperlipidemia Anxiety History of umbilical hernia Surgical History History of excision of mass History of cholecystectomy History of breast augmentation History of bilateral breast reduction surgery History of abdominoplasty Family History Family History Mother Colon cancer Other Asthma Social History Social History Household Members: Spouse and Children Housing: House Do you presently have visiting nurse or other home services: No Alcohol intake: never Patient Tobacco Use Status: Never used Tobacco Advance Directives: No Advance Directives Information Provided: Yes Do you have a plan to hurt others: No Plan service: No Physical Exam ED Vital Signs: Vital Signs - 24 hr 03/25/25 07:56 Temperature 98.3 F Pulse Rate 63 Respiratory Rate 16 Pulse Oximetry 99 Oxygen Delivery Method Room Air BMI result Body Mass Index 33.5 Const General: cooperative, no acute distress, alert and awake Nutritional Appearance: well nourished Orientation/consciousness: patient oriented x3 HENMT Head: Yes normal to inspection and Yes atraumatic Ears: hearing grossly normal bilaterally and external ears normal General nose exam: Normal external nose present, no nasal discharge noted and no epistaxis Face and sinus: Yes normal facial exam, No abrasion and No laceration Mouth: Normal oral and palatal mucosa present, no drooling and no muffled voice Eyes General: appearance normal, both eyes and all related structures Periorbital: periorbital findings normal Eyelids: Yes eyelids normal Conjunctivae: conjunctivae normal Pupils: Equal, round and reactive pupils present EOM: EOMs intact bilaterally Neck Neck: Yes normal visual inspection, Yes full ROM and Yes no lymphadenopathy Resp Effort & Inspection: normal respiratory effort and able to speak in complete sentences Neuro General: patient oriented x3, moves all extremities and CN's II-XI intact bilaterally Cranial nerves: Yes Equal, round and reactive pupils present Cognition (Neuro): normal cognition Extrem General: Yes normal to inspection, Yes full ROM and Yes capillary refill normal Psych Appearance: grossly normal Mental Status: mental status grossly normal Affect: normal affect Attitude: cooperative Thought process: Normal thought process present Thought content: Normal thought content present Insight: Good insight present (Psych) Course Course Course Narrative: 44 yo female with PMH of fibroids, HLD, asthma, kidney stones, now here with c/o n/v and R flank pain into the whole abdomen. NO diarrhea, no fevers, no issues with urination. At this time will obtain labs, CT scan for renal colic this is a RAPID medical screening exam the rest of the history and physical exam is to be done by the main provider. 03/25/25 NANCY 759am Medical Decision Making Medical Decision Making [facility] Narrative: Patient is a 44 year old assigned female at with a history of fibromyalgia and kidney stones presenting to the emergency department today with right low back pain, right sided abdominal pain, nausea, and vomiting. Patient's physical exam was unremarkable. Patient's blood work was unremarkable. Patient's urine showed no acute process. Patient's CT of the abdomen/pelvis showed 2 very small kidney stones in the collecting system but no hydronephrosis or other acute findings. I explained my physical exam findings as well as all test results to the patient. I answered all questions asked by the patient. Patient received ODT Zofran, IV Toradol, and IV fluids which, upon re-evaluation, she stated it helped her symptoms some. I stressed the importance of the patient taking her medication as directed (either prescribed or as the over the counter packaging recommends). I stressed the importance of the patient following up with her primary care provider. I stressed the importance of the patient returning to the emergency department immediately if her symptoms were to worsen or if she were to develop any dizziness, shortness of breath, difficulty breathing, chest pain, blurry vision, loss of vision, nausea, vomiting, abdominal pain, fever, chills, back pain, or any other complaints. Patient verbalized agreement and understanding with this treatment plan and discharge. Differential Diagnosis Differential Diagnoses: The differential diagnosis associated with the presentation includes Right flank pain Kidney stones UTI Admission/Observation Consideration of admission/observation: Escalation of care including admission/observation considered Patient would have been admitted to the hospital had her work up had any findings where hospital admission was appropriate and her clinical presentation warranted hospital admission. Lab Data [facility] Lab Attestation statement: I reviewed the patient's lab results. My interpretation of these results are in the [facility] Rationale portion of this note. 03/25/25 08:07 03/25/25 08:07 Labs: Lab Results 03/25/25 Range/Units 08:07 WBC 7.7 (4.8-10.8) X10*3/uL RBC 4.08 L (4.20-5.50) X10*6/uL Hgb 11.8 L (12.0-16.0) g/dl Hct 36.9 L (37.0-47.0) % MCV 90.4 (80.0-98.0) fL MCH 28.9 (27.0-33.0) pg MCHC 32.0 (31.0-35.0) g/dl RDW 13.2 (11.0-16.0) % Plt Count 282 (160-400) X10*3/uL MPV 9.9 (9.4-12.3) fL Immature Gran % (Auto) 0.3 (0.0-0.4) % Neut % (Auto) 58.2 (45-73) % Lymph % (Auto) 30.5 (20-40) % [place] % (Auto) 8.4 (2-11) % Eos % (Auto) 1.8 (0-4) % Baso % (Auto) 0.8 (0-2) % Lymph # (Auto) 2.3 (1.2-4.9) X10*3/uL [place] # (Auto) 0.6 (0.1-1.2) X10*3/uL Eos # (Auto) 0.1 (0.0-0.4) X10*3/uL Baso # (Auto) 0.1 (0.0-0.2) X10*3/uL Abs Immat Gran (auto) 0.02 (0.00-0.03) X10*3/uL Absolute Neuts (auto) 4.5 (2.0-8.3) x10*3/uL Absolute Nucleated RBC 0.000 (0.0-0.012) X10*3/uL Nucleated RBC % (auto) 0.0 (0.0-0.2) /100WBC Sodium 140 (135-145) mmol/L Potassium 4.4 (3.3-5.1) mmol/L Chloride 106 (96-108) mmol/L Carbon Dioxide 28 (22-29) mmol/L Anion Gap 10 L (12-20) BUN 13 (9-16) mg/dL Creatinine 0.73 (0.5-1.4) mg/dL Estim Creat Clear Calc 96.2 Estimated GFR > 60 Random Glucose 80 (60-115) mg/dL Calcium 9.4 (8.4-10.2) mg/dL Magnesium 1.9 (1.6-2.6) mg/dL Total Bilirubin 0.9 (0.0-1.0) mg/dL Direct Bilirubin 0.2 (0.0-0.5) mg/dL AST 24 (5-31) U/L ALT 11 (0-31) U/L Alkaline Phosphatase 66 (39-117) U/L Total Protein 7.0 (6.5-8.0) g/dL Albumin 4.0 (3.5-5.0) g/dL Lipase 38 (8-78) U/L Urine Color Yellow Urine Appearance Clear Urine pH 6.5 (5.0-9.0) Ur Specific [place] >= 1.030 H (1.005-1.025) Urine Protein Negative (Neg-Trace) mg/dL Urine Glucose (UA) Negative (Negative) mg/dL Urine Ketones Negative (Negative) mg/dL Urine Blood Negative (Negative) Urine Nitrite Negative (Negative) Ur Leukocyte Esterase Negative (Negative) Independent Interpretation I performed an independent interpretation of an: CT Scan Interpretation: My interpretation is in agreement with the radiologist's impression of this imaging study. L Report Number: [id number]: Total DLP = 0.00 mGy-cm EXAMINATION: CT ABDOMEN PELVIS WITHOUT IV CONTRAST HISTORY: R flank pain COMPARISON: Comparison is made with the prior examination dated 01/10/2025. TECHNIQUE: CT scan of the abdomen and pelvis was performed without contrast using standard departmental protocol. Coronal and sagittal reformatted images were generated and reviewed. Oral contrast material was not administered per department protocol. This CT exam was performed with one or more of the following dose reduction techniques: automated exposure control, adjustment of the mA and/or kV according to patient size, use of iterative reconstruction technique. DLP: 659 mGy-cm FINDINGS: LOWER CHEST: The visualized lung bases are clear. There is no pleural effusion. CARDIOVASCULATURE: The heart is normal in size. There is no pericardial effusion. LIVER: The liver is normal in size and contour. The liver has an unremarkable unenhanced appearance. GALLBLADDER / BILE DUCTS: The gallbladder is surgically absent. There is no intra or extrahepatic biliary ductal dilatation. SPLEEN: The spleen is normal in size and has an unremarkable unenhanced appearance. PANCREAS: The pancreas has an unremarkable unenhanced appearance. ADRENAL GLANDS: Unremarkable. KIDNEYS/RETROPERITONEUM: There is a 2 mm nonobstructing calculus at the lower pole of the right kidney. There is mild dilatation of the right renal collecting system. A 1-2 mm calculus is noted in the proximal ureter at the level of the superior endplate of L4. No left renal calculi are identified. There is no left hydronephrosis. LYMPH NODES: No retroperitoneal lymphadenopathy is identified in the abdomen or pelvis. VASCULATURE: The abdominal aorta demonstrates atherosclerotic calcification, but is normal in caliber. MESENTERY/PERITONEUM: No free fluid. No masses. There is no free intraperitoneal gas. STOMACH: There is a small hiatal hernia. The remainder of the stomach is collapsed. SMALL BOWEL: The small bowel is normal in caliber. COLON: There is a moderate amount of stool throughout the colon. APPENDIX: Normal. URINARY BLADDER/PELVIC ORGANS: The urinary bladder is collapsed, limiting evaluation. The patient is status post hysterectomy. BONES / SOFT TISSUES: No suspicious bony or soft tissue abnormalities. CT/CT abdomen pelvis wo IV con IMPRESSION: Mild dilatation of the right renal collecting system secondary to a 1-2 mm proximal ureteral calculus. 2 mm nonobstructing right renal calculus. Electronically signed by: Dev Valle MD 03/25/2025 09:19 AM EDT Dictated By: Dev Valle MD Signed By: Electronically signed by Dev Valle MD 03/25/25 0919 Radiology Impression Discussion of test interpretation with radiology: I have reviewed the radiologist's reading. Medications Administered Discontinued Medications Generic Name Dose Route Start Last Admin Trade Name Freq PRN Reason Stop Dose Admin Ondansetron HCl 4 mg 03/25/25 07:59 03/25/25 08:01 Ondansetron Odt 4 Mg Tab.Rapdis TRANSLINGU 03/25/25 08:00 4 mg ONCE ONE Administration Discharge Plan Discharge Clinical Impression: Acute flank pain, Kidney stone Patient Disposition: Home, Self-Care Instructions: Flank Pain (ED), Kidney Stones (ED) Additional Instructions: Your CT scan showed 2 very small stones high up in the right kidney. There is NO obstruction and nothing additional for us to do at this time. Follow up with your primary care provider. Return to the emergency department immediately if your symptoms worsen or if you develop any dizziness, shortness of breath, difficulty breathing, chest pain, blurry vision, loss of vision, nausea, vomiting, abdominal pain, fever, chills, back pain, or any other complaints. Fregoso tomograf?a computarizada mostr? dos c?lculos muy eugenie?os en la parte melissa del ri??n derecho. No hay ninguna obstrucci?n y no hay nada m?s que podamos hacer por el momento.Ti?seguimiento?con fregoso m?dico de atenci?n primaria. Acuda inmediatamente al servicio de urgencias si erica s?ntomas empeoran o si presenta falta de aliento, dificultad para respirar, dolor tor?cico, mareos, aturdimiento, dolor de espalda, dolor abdominal, fiebre, escalofr?os o cualquier otro s?ntoma. Please see the information below about our Patient Portal. If you are not yet enrolled in the [facility] Patient Portal, you will receive an enrollment email invitation following your visit to any [facility] setting. You may also self-enroll in the Patient Portal by visiting our website: [email or web address] The following information is required to access the Patient Portal: - Your [facility] Medical Record Number - Your personal home email address (must match what is in your electronic medical record, Registration staff can assist with this) - Name - Date of Capabilities of the Patient Portal: - Message some providers - View upcoming appointments - Access your health summary, medical history, and visit history - View current conditions and allergies - View procedure and lab results - View your medications, including guidelines, side effects, and precautions - Complete pre-appointment questionnaires requested by your provider - Ready summary reports of your office visits and procedures To access the Patient Portal Mobile Nikko, follow these directions: - Search [employer] in the Nikko Store or Google Zaplox Store - Download the Nikko - Search for [facility] - Enter your login/password Portal del paciente Si usted no esta inscrito en el portal de pacientes de [facility] y [facility], recibira boris invitacion de inscripcion despues de fregoso visita al [facility] o al [facility] via correo electronico. Tambien puede inscribirse voluntariamente en el portal de pacientes visitando nuestra pagina web: [email or web address] La siguiente informacion sera requerida para acceder al portal: - Fregoso mallory de historia medica de [facility] - Fregoso direccion de correo electronico personal - Nombre - Fecha de nacimiento Capacidades: Las siguientes capacidades estan disponibles en el portal de pacientes: - Enviar mensajes a algunos doctores - Verificar proximas citas - Acceso a fregoso historial de chris, registro medico e historial de visitas - Perry las condiciones actuales y alergias perry procedimientos y resultados del laboratorio - Perry erica medicamentos, incluyendo las pautas - Efectos secundarios y precauciones - Completar o llenar formularios / cuestionarios de - Citas solicitadas por fregoso doctor - Leer los resumenes de reportes medicos de erica visitas y procedimientos Arjun acceder a la aplicacion movil: - Busque [employer] en la Nikko Store o [employer] Store - Descargue la aplicacion - Busque [facility] - Ingrese fregoso nombre de usuario / Contrasena Prescriptions: No Action acetaminophen [Tylenol Extra Strength] 500 mg tablet 1,000 mg PO Q6H PRN (Reason: fever or pain) Qty: 20 0RF rosuvastatin 40 mg tablet 40 mg PO BEDTIME albuterol sulfate [Ventolin HFA] 90 mcg/actuation HFA aerosol inhaler 2 puff INHALATION Q4H PRN (Reason: wheezing) cyclobenzaprine 10 mg tablet 10 mg PO BEDTIME PRN (Reason: muscle spasm) meloxicam 15 mg tablet 15 mg PO DAILY fluoxetine 20 mg capsule 20 mg PO DAILY oxycodone 5 mg Tablet 5 mg PO Q6H PRN (Reason: Pain, Moderate(Pain Scale 4-6)) Qty: 16 0RF Rx Instructions: Partial Fill upon patient request. ibuprofen [Motrin IB] 200 mg capsule 600 mg PO Q6H PRN (Reason: pain (scale score 4-6)) Qty: 30 0RF ondansetron 4 mg tablet,disintegrating 4 mg PO Q8H PRN (Reason: nausea and vomiting) Qty: 15 0RF albuterol sulfate 90 mcg/actuation HFA aerosol inhaler 1 puff inhalation QID PRN (Reason: shortness of breath or wheezing) Qty: 6.7 1RF (DME) inhalational spacing device Spacer See Rx Instructions .Route Qty: 1 0RF Rx Instructions: As directed omeprazole 20 mg capsule,delayed release(DR/EC) 20 mg PO DAILY@0630 Referrals: Evy Christopher, FIELD AGRONOMIST [Primary Care Provider] - Print Language: Mauritanian
[2025-03-25] MEDS: Ondansetron ODT 4 MG TAB.RAPDIS TRANSLINGU (08:01)
[2025-03-25 08:11] LABS: MANUAL DIFF FLAG NO
[2025-03-25 08:14] LABS: Appearance Urine Clear; Color Urine Yellow; Glucose Urine UA Negative (Negative); Leukocyte Esterase Urine Negative (Negative); Nitrite Urine Negative (Negative); PH 6.5 (5.0-9.0); Specific Gravity - Urine >= 1.030 (1.005-1.025); Urine Blood Negative (Negative); Urine Ketones Negative (Negative); Urine Protein Negative (Neg-Trace)
--- OUTSIDE RECORDS SUMMARY | 2025-03-25 08:16 | XMS_ITS | Continuity of Care Document ---
Author Organization [facility] Address [address] [place] [address]- Care Team Providers Care Oil Producer Name Role Phone Ashwin HUTSON, Evy Perez Primary Care Physician [id number] Date(s): 02/17/25 - 03/19/25 [facility] [address] [place] [address]- Encounter Type: Triage Allergies, Adverse Reactions, Alerts No Known Allergies Immunizations Given and Recorded Vaccine Date Status Refusal Reason SARS-CoV-2 mRNA ([id number]) vax 11/27/21 Recorded SARS-CoV-2 (COVID-19) mRNA BNT-162b2 vac 03/23/21 Recorded SARS-CoV-2 (COVID-19) mRNA BNT-162b2 vac 03/02/21 Recorded influenza virus vaccine, inactivated 1 09/29/10 [facility] haris 1Admin Note: per pt Medications Dexilant 60 mg oral delayed release capsule 1 capsule = 60 mg, By Mouth, Daily, # 90 capsule, 3 Refills, Maintenance, 10/27/24 8:38:00 AM EST, CR Capsule, [facility] #[id number], Partial fill upon patient request if the [...] 0 Refills, Maintenance, 09/05/24 11:50:00 AM EST, [id number], 160, cm, 09/01/24 9:42:00 EST, Height, 81.9, [...] 0 Refills, Maintenance, 02/26/24 1:51:00 PM EDT, [id number], Partial fill upon patient request if the [...] 2 Refills, Maintenance, 10/27/24 8:42:00 AM EST, [id number], Partial fill upon patient request if the [...] Refills, Maintenance, 07/14/24 3:00:00 PM EDT, Tablet, [facility] #[id number], Partial fill upon patient request if the [...] of left and right thighs Confirmed Active Constipation Confirmed Active Straining with stools Confirmed Active Epigastric pain Confirmed Active Epigastric pain Confirmed Active Encounter for diagnostic colonoscopy due to change in bowel habits Confirmed Active Encounter for diagnostic colonoscopy due to change in bowel habits Confirmed Active Gastritis Confirmed Active Acid reflux Confirmed Active GERD (gastroesophageal reflux disease) Confirmed Active Lower abdominal pain Confirmed Active [...] Team Personnel Name: Liliam Downing RN Position: [facility] AMB Nurse Member Role: Primary Care Nurse Name: Patricia Feng RN Position: [facility] Onco RN Member Role: Primary Care Nurse Name: Shelly Anton RN Position: [facility] RN Member Role: Primary Care Nurse Name: Evy Christopher NP Position: [facility] Outreach Member Role: PCP Address: [address] [place] [id number]- Telecom: Name: Albertina Luna RN Position: [facility] RN Member Role: Primary Care Nurse Care Team Related Persons Name: SMOOTH QUIROZ Insurance Providers Guarantor name: JOSEPH [facility] Information #: 1 Payer: [employer] Member Number: NA Policy Number: NA Group Number: NA
[2025-03-25 08:18] LABS: Basophils Absolute Auto 0.1 X10*3/uL (0.0-0.2); Basophils Percent Auto 0.8 % (0-2); Eosinophils Absolute Auto 0.1 X10*3/uL (0.0-0.4); Eosinophils Percent Auto 1.8 % (0-4); Hematocrit 36.9 % (37.0-47.0); Hemoglobin 11.8 g/dl (12.0-16.0); Imm Gran Abs Auto 0.02 X10*3/uL (0.00-0.03); Imm Gran Pct Auto 0.3 % (0.0-0.4); Lymphocytes Absolute Auto 2.3 X10*3/uL (1.2-4.9); Lymphocytes Percent Auto 30.5 % (20-40); Mean Corpuscular Hemoglobin 28.9 pg (27.0-33.0); Mean Corpuscular Volume 90.4 fL (80.0-98.0); Mean Platelet Volume 9.9 fL (9.4-12.3); Monocytes Absolute Auto 0.6 X10*3/uL (0.1-1.2); Monocytes Percent Auto 8.4 % (2-11); Neutrophils Absolute Auto 4.5 x10*3/uL (2.0-8.3); Neutrophils Percent Auto 58.2 % (45-73); Platelet Count 282 X10*3/uL (160-400); Red Blood Count 4.08 X10*6/uL (4.20-5.50); Red Cell Distribution Width 13.2 % (11.0-16.0); White Blood Count 7.7 X10*3/uL (4.8-10.8)
[2025-03-25 08:27] LABS: Alanine Aminotransferase 11 U/L (0-31); Alkaline Phosphatase 66 U/L (39-117); Anion Gap 10 (12-20); Aspartate Amino Transferase 24 U/L (5-31); Bilirubin Direct 0.2 mg/dL (0.0-0.5); Bilirubin Total 0.9 mg/dL (0.0-1.0); Blood Urea Nitrogen 13 mg/dL (9-16); Calcium 9.4 mg/dL (8.4-10.2); Carbon Dioxide 28 mmol/L (22-29); Chloride 106 mmol/L (96-108); Creatinine Clr Calc Pharmacy 96.2; Estimated Glomerular Filt Rate > 60; Glucose Random 80 mg/dL (60-115); Lipase 38 U/L (8-78); Magnesium 1.9 mg/dL (1.6-2.6); Potassium 4.4 mmol/L (3.3-5.1); Sodium 140 mmol/L (135-145)
[2025-03-25] MEDS: Ketorolac Tromethamine 15 MG/ML VIAL IVPUSH (09:44)
[2025-03-25] MEDS: 0.9 % Sodium Chloride 1,000 ML 999 ML IV (09:44)
[2025-03-25 09:46] VITALS: BP 124/75; PULSE 56; RESP 14; TEMP 36.5; O2SAT 96
[2025-03-25 11:57] VITALS: BP 146/78; PULSE 62; RESP 14; TEMP 36.6; O2SAT 99
[2025-03-25] MEDS: ondansetron HCL 4 MG/2 ML VIAL IVPUSH (12:12)
[2025-03-25] MEDS: Morphine Sulfate 4 MG/ML CARTRIDGE IVPUSH (12:12)
[2025-03-25 12:32] VITALS: BP 146/78; PULSE 62; RESP 14; TEMP 36.6; O2SAT 99
== END 2025-03-25 13:15 | disposition home or self-care (01) ==
PROVIDERS: Emergency Provider Emergency Medicine; PCP Nurse Practitioner Primary Care
DX: R10.9 Unspecified abdominal pain (principal); N20.0 Calculus of kidney; M54.50 Low back pain, unspecified
CPT/HCPCS: 36415; 74176; 80048; 80076; 81003; 83690; 83735; 85025; 96374; 96375; 99284; J1885; J2270; J2405

== ENCOUNTER → 2025-03-25 07:59 | Outpatient (BNV) | payer MEDICAID, SELFPAY | PROVIDERS: Emergency Provider Emergency Medicine; PCP Nurse Practitioner Primary Care; Visit Provider Radiology Diagnostic Radiology | DX: N20.2 Calculus of kidney with calculus of ureter (principal) | CPT/HCPCS: 74176 ==

== ENCOUNTER 2025-03-26 17:01 | Emergency (ER) | payer MEDICAID, SELFPAY ==
[2025-03-26 17:18] VITALS: BP 122/82; PULSE 69; RESP 16; TEMP 35.1; O2SAT 95; BMI 32.2
--- NOTE | 2025-03-26 17:20 | ED_ITS ---
<Statement entered by Dirk Haynes MD - 03/27/25 00:48> Patient's left without being seen by MD HPI - Abdominal Pain General Chief Complaint: Abdominal Pain Stated Complaint: Back pain Time Seen by Provider: 03/26/25 21:29 Related Data Home Medications ?Medication ?Instructions ?Recorded ?Confirmed omeprazole 20 mg capsule,delayed 20 mg PO DAILY@0630 10/06/21 01/10/25 release albuterol sulfate 90 mcg/actuation 2 puff inhalation Q4H PRN wheezing 05/09/24 01/10/25 aerosol inhaler (Ventolin HFA) rosuvastatin 40 mg tablet 40 mg PO BEDTIME 05/09/24 01/10/25 cyclobenzaprine 10 mg tablet 10 mg PO BEDTIME PRN muscle spasm 01/10/25 01/10/25 fluoxetine 20 mg capsule 20 mg PO DAILY 01/10/25 01/10/25 meloxicam 15 mg tablet 15 mg PO DAILY 01/10/25 01/10/25 Previous Rx's ?Medication ?Instructions ?Recorded acetaminophen 500 mg tablet 1,000 mg (2 x 500 mg) PO Q6H PRN 05/08/24 (Tylenol Extra Strength) fever or pain #20 tabs ibuprofen 200 mg capsule (Motrin 600 mg (3 x 200 mg) PO Q6H PRN 01/11/25 IB) pain (scale score 4-6) #30 caps ondansetron 4 mg disintegrating 4 mg PO Q8H PRN nausea and 01/11/25 tablet vomiting #15 tabs oxycodone 5 mg tablet 5 mg PO Q6H PRN Pain, 01/11/25 Moderate(Pain Scale 4-6) #16 tabs albuterol sulfate 90 mcg/actuation 1 puff inhalation QID PRN 02/05/25 aerosol inhaler shortness of breath or wheezing #6.7 grams inhalational spacing device #1 ea 02/05/25 Allergies Allergy/AdvReac Type Severity Reaction Status Date / Time No Known Allergies Allergy Verified 03/26/25 17:18 [facility] Past Medical History Medical History Abdominal pain Transaminitis Chronic pain syndrome Fibromyalgia Hyperlipidemia Anxiety History of umbilical hernia Surgical History History of excision of mass History of cholecystectomy History of breast augmentation History of bilateral breast reduction surgery History of abdominoplasty Family History Family History Mother Colon cancer Other Asthma Social History Social History Household Members: Spouse and Children Housing: House Do you presently have visiting nurse or other home services: No Alcohol intake: never Patient Tobacco Use Status: Never used Tobacco Use of substances other than those prescribed or required for medical reasons: No Advance Directives: No Advance Directives Information Provided: No Do you have a plan to hurt others: No Plan Patient : No service: No Physical Exam ED Vital Signs: Vital Signs - 24 hr 03/26/25 17:18 03/26/25 19:55 Temperature 95.2 F L 98.1 F Pulse Rate 69 66 Respiratory Rate 16 16 Blood Pressure 122/82 119/63 Pulse Oximetry 95 95 Oxygen Delivery Method Room Air Room Air BMI result Body Mass Index 32.2 Course Course Course Narrative: This is an RME: Additional HPI, ROS, PE not included below will be deferred to primary provider. RME assessment and note performed by: Alicia Reddy PA-C 44-year-old female with medical history of fibromyalgia, renal calculi, presents to the ED due to 5 days of ongoing R sided back/flank pain and dysuria. Patient was seen in the department yesterday (03/25) and had CT scan abdomen/pelvis which revealed 2mm right renal calculi. Patient states her pain is persistent and took Tylenol today without effect. Plan: Labs, UA Medical Decision Making Lab Data 03/26/25 17:29 03/26/25 17:29 Labs: Lab Results 03/26/25 Range/Units 17:29 WBC 9.9 (4.8-10.8) X10*3/uL RBC 4.09 L (4.20-5.50) X10*6/uL Hgb 11.7 L (12.0-16.0) g/dl Hct 37.0 (37.0-47.0) % MCV 90.5 (80.0-98.0) fL MCH 28.6 (27.0-33.0) pg MCHC 31.6 (31.0-35.0) g/dl RDW 13.2 (11.0-16.0) % Plt Count 290 (160-400) X10*3/uL MPV 10.0 (9.4-12.3) fL Immature Gran % (Auto) 0.4 (0.0-0.4) % Neut % (Auto) 63.8 (45-73) % Lymph % (Auto) 25.6 (20-40) % [place] % (Auto) 8.2 (2-11) % Eos % (Auto) 1.4 (0-4) % Baso % (Auto) 0.6 (0-2) % Lymph # (Auto) 2.5 (1.2-4.9) X10*3/uL [place] # (Auto) 0.8 (0.1-1.2) X10*3/uL Eos # (Auto) 0.1 (0.0-0.4) X10*3/uL Baso # (Auto) 0.1 (0.0-0.2) X10*3/uL Abs Immat Gran (auto) 0.04 H (0.00-0.03) X10*3/uL Absolute Neuts (auto) 6.3 (2.0-8.3) x10*3/uL Absolute Nucleated RBC 0.000 (0.0-0.012) X10*3/uL Nucleated RBC % (auto) 0.0 (0.0-0.2) /100WBC Sodium 143 (135-145) mmol/L Potassium 4.3 (3.3-5.1) mmol/L Chloride 108 (96-108) mmol/L Carbon Dioxide 28 (22-29) mmol/L Anion Gap 11 L (12-20) BUN 10 (9-16) mg/dL Creatinine 0.77 (0.5-1.4) mg/dL Estim Creat Clear Calc 92.7 Estimated GFR > 60 Random Glucose 79 (60-115) mg/dL Calcium 9.3 (8.4-10.2) mg/dL Magnesium 2.0 (1.6-2.6) mg/dL Total Bilirubin 1.0 (0.0-1.0) mg/dL AST 40 H (5-31) U/L ALT 32 H (0-31) U/L Alkaline Phosphatase 68 (39-117) U/L Total Protein 7.3 (6.5-8.0) g/dL Albumin 4.2 (3.5-5.0) g/dL Urine Color Yellow Urine Appearance Clear Urine pH 6.0 (5.0-9.0) Ur Specific [place] 1.025 (1.005-1.025) Urine Protein Negative (Neg-Trace) mg/dL Urine Glucose (UA) Negative (Negative) mg/dL Urine Ketones Trace (Negative) mg/dL Urine Blood Negative (Negative) Urine Nitrite Negative (Negative) Ur Leukocyte Esterase Negative (Negative) Discharge Plan Discharge Clinical Impression: Calculus of kidney Patient Disposition: Left W/O Completing Treatment Prescriptions: No Action acetaminophen [Tylenol Extra Strength] 500 mg tablet 1,000 mg PO Q6H PRN (Reason: fever or pain) Qty: 20 0RF rosuvastatin 40 mg tablet 40 mg PO BEDTIME albuterol sulfate [Ventolin HFA] 90 mcg/actuation HFA aerosol inhaler 2 puff INHALATION Q4H PRN (Reason: wheezing) cyclobenzaprine 10 mg tablet 10 mg PO BEDTIME PRN (Reason: muscle spasm) meloxicam 15 mg tablet 15 mg PO DAILY fluoxetine 20 mg capsule 20 mg PO DAILY oxycodone 5 mg Tablet 5 mg PO Q6H PRN (Reason: Pain, Moderate(Pain Scale 4-6)) Qty: 16 0RF Rx Instructions: Partial Fill upon patient request. ibuprofen [Motrin IB] 200 mg capsule 600 mg PO Q6H PRN (Reason: pain (scale score 4-6)) Qty: 30 0RF ondansetron 4 mg tablet,disintegrating 4 mg PO Q8H PRN (Reason: nausea and vomiting) Qty: 15 0RF albuterol sulfate 90 mcg/actuation HFA aerosol inhaler 1 puff inhalation QID PRN (Reason: shortness of breath or wheezing) Qty: 6.7 1RF (DME) inhalational spacing device Spacer See Rx Instructions .Route Qty: 1 0RF Rx Instructions: As directed omeprazole 20 mg capsule,delayed release(DR/EC) 20 mg PO DAILY@0630 Discharge Date/Time: 03/26/25 21:52
[2025-03-26 17:34] LABS: MANUAL DIFF FLAG NO
[2025-03-26 17:37] LABS: Basophils Absolute Auto 0.1 X10*3/uL (0.0-0.2); Basophils Percent Auto 0.6 % (0-2); Eosinophils Absolute Auto 0.1 X10*3/uL (0.0-0.4); Eosinophils Percent Auto 1.4 % (0-4); Hemoglobin 11.7 g/dl (12.0-16.0); Imm Gran Abs Auto 0.04 X10*3/uL (0.00-0.03); Imm Gran Pct Auto 0.4 % (0.0-0.4); Lymphocytes Absolute Auto 2.5 X10*3/uL (1.2-4.9); Lymphocytes Percent Auto 25.6 % (20-40); Mean Corpuscular HGB Conc 31.6 g/dl (31.0-35.0); Mean Corpuscular Hemoglobin 28.6 pg (27.0-33.0); Mean Corpuscular Volume 90.5 fL (80.0-98.0); Monocytes Absolute Auto 0.8 X10*3/uL (0.1-1.2); Monocytes Percent Auto 8.2 % (2-11); Neutrophils Absolute Auto 6.3 x10*3/uL (2.0-8.3); Neutrophils Percent Auto 63.8 % (45-73); Platelet Count 290 X10*3/uL (160-400); Red Blood Count 4.09 X10*6/uL (4.20-5.50); Red Cell Distribution Width 13.2 % (11.0-16.0); White Blood Count 9.9 X10*3/uL (4.8-10.8)
[2025-03-26 17:43] LABS: Appearance Urine Clear; Color Urine Yellow; Glucose Urine UA Negative (Negative); Leukocyte Esterase Urine Negative (Negative); Nitrite Urine Negative (Negative); Specific Gravity - Urine 1.025 (1.005-1.025); Urine Blood Negative (Negative); Urine Ketones Trace mg/dL (Negative); Urine Protein Negative (Neg-Trace)
[2025-03-26 17:49] LABS: Alanine Aminotransferase 32 U/L (0-31); Albumin Level 4.2 g/dL (3.5-5.0); Alkaline Phosphatase 68 U/L (39-117); Anion Gap 11 (12-20); Aspartate Amino Transferase 40 U/L (5-31); Blood Urea Nitrogen 10 mg/dL (9-16); Calcium 9.3 mg/dL (8.4-10.2); Carbon Dioxide 28 mmol/L (22-29); Chloride 108 mmol/L (96-108); Creatinine Clr Calc Pharmacy 92.7; Estimated Glomerular Filt Rate > 60; Glucose Random 79 mg/dL (60-115); Potassium 4.3 mmol/L (3.3-5.1); Sodium 143 mmol/L (135-145); Total Protein 7.3 g/dL (6.5-8.0)
[2025-03-26 19:55] VITALS: BP 119/63; PULSE 66; RESP 16; TEMP 36.7; O2SAT 95
--- NOTE | 2025-03-26 21:52 | PC.NURSE ---
pt not in room when provider went in for assessment.
== END 2025-03-26 21:52 | disposition left against medical advice (07) ==
PROVIDERS: Emergency Provider Internal Medicine; PCP Nurse Practitioner Primary Care
DX: N20.0 Calculus of kidney (principal); R10.2 Pelvic and perineal pain; M54.50 Low back pain, unspecified; Z79.899 Other long term (current) drug therapy
CPT/HCPCS: 36415; 80053; 81003; 83735; 85025; 99283; 99284

== ENCOUNTER 2025-03-31 08:13 | Outpatient (REF) | payer MEDICAID, SELFPAY ==
--- OUTSIDE RECORDS SUMMARY | 2025-03-31 08:19 | XMS_ITS | Encounter Summary ---
Author Organization [facility] Address [address] [place] [address] Care Team Providers Care Application Support Lead Name Role Phone Ashwin Evy Cota NP Primary Care Provider [phone] Reason for Visit * Reason Onset Date Comments prior auth 03/03/2025 Prior auth Encounter Details Date Type Department Care Team ([facility] Contact Info) Description 03/03/2025 Telephone Bariatric Surgery - [place] 175 [facility] [address] [place] [phone] Paul Rod MD 175 [facility] [address] [place] [address] prior auth (Prior auth) Social History Tobacco Use Types Packs/Day Years [...] AM EST documented as of this encounter Functional Status * Are you [...] documented in this encounter Progress Notes * Camila Dill - 03/03/2025 10:24 AM EDT Patient needs a PA for Zepbound 2.5 mg documented in this encounter Plan of Treatment Upcoming Encounters Date Type Department Care Team (Late st Contact Info) Description 05/04/2025 8:30 AM EDT Office Visit Bariatric Surgery [facility] [address] [phone] Mily Cardenas MD [address] [phone] 06/16/2025 8:45 AM EDT Office Visit Bariatric Surgery [facility] [address] [phone] Paul Rod MD [address] [phone] documented as of this encounter Visit Diagnoses Not on filedocumented in this encounter Care Teams Application Support Lead Relationship Specialty Start Date End Date Evy Christopher NP [address] [place] [phone] PCP - General 10/26/24 documented as of this encounter
[2025-03-31 12:37] LABS: Alanine Aminotransferase 41 U/L (0-31); Albumin Level 3.9 g/dL (3.5-5.0); Alkaline Phosphatase 67 U/L (39-117); Aspartate Amino Transferase 29 U/L (5-31); Bilirubin Direct 0.2 mg/dL (0.0-0.5); Bilirubin Total 0.9 mg/dL (0.0-1.0); Cholesterol 205 mg/dL (<200); HDL Cholesterol 51 mg/dL (>40); LDL Cholesterol Calculated 138 mg/dL (<100); Total Protein 6.8 g/dL (6.5-8.0); Triglycerides 80 mg/dL (<150)
== END 2025-03-31 08:14 | disposition home or self-care (01) ==
LOC: HO.HHCL 08:13
PROVIDERS: Visit Provider Nurse Practitioner Primary Care
DX: E78.5 Hyperlipidemia, unspecified (principal)
CPT/HCPCS: 36415; 80061; 80076

== ENCOUNTER 2025-04-22 10:15 | Outpatient (REF) | payer MEDICAID, SELFPAY ==
[2025-04-22 11:43] LABS: Anion Gap 9 (12-20); Blood Urea Nitrogen 8 mg/dL (9-16); Calcium 9.1 mg/dL (8.4-10.2); Carbon Dioxide 28 mmol/L (22-29); Chloride 108 mmol/L (96-108); Estimated Glomerular Filt Rate > 60; Glucose Random 82 mg/dL (60-115); Sodium 141 mmol/L (135-145)
--- OUTSIDE RECORDS SUMMARY | 2025-04-22 11:55 | XMS_ITS | Encounter Summary ---
Author Organization [facility] Address [address] [place] [address] Care Team Providers Care Interior Assemblies Installer Name Role Phone Evy Christopher NP Primary Care Provider [phone] Encounter Details Date Type Department Care Team ([facility] st Contact Info) Description 04/20/2025 Telephone Bariatric Surgery - [place] [address] [phone] Paul Rod MD [address] [address] Social History Tobacco Use Types Packs/Day Years [...] of Assessment Author No 09/22/2024 5:10 PM EST [place] , Fatoumata, RN * Do you have serious difficulty [...] documented in this encounter Progress Notes * Trinidad Stanley MA - 04/20/2025 11:03 AM EDT Patient calling due to having diarrhea since starting 7.5 MG she needs to know what to do can she get or go back to the 5 mg. Please give pt call [phone] documented in this encounter Plan of Treatment Upcoming Encounters Date Type Department Care Team (Late st Contact Info) Description 06/16/2025 8:45 AM EDT Office Visit Bariatric Surgery - [place] [address] [phone] Paul Rod MD [address] [address] 06/22/2025 11:00 AM EDT Pre-Admission Testing [facility] Pre-Admission Testing [address] [place] [phone] 06/30/2025 10:00 AM EDT Hospital Encounter [facility] Main OR [address] [place] [phone] Mily Cardenas MD [address] [phone] 06/30/2025 10:00 AM EDT - 06/30/2025 12:30 PM EDT Surgery [facility] Main OR [address] [place] [address] Mily Cardenas MD [address] [phone] [facility] REPAIR OF HIATAL HERNIA [92022 (CPT )] Scheduled Procedures Name Priority Associated Diagnoses Date/Ti me REPAIR HERNIA HIATAL ROBOT Hiatal hernia with GERD 06/30/2025 10:00 AM EDT documented as of this encounter Visit Diagnoses Not on filedocumented in this encounter Care Teams Interior Assemblies Installer Relationship Specialty Start Date End Date Evy Christopher NP [address] [place] [phone] PCP - General 10/26/24 documented as of this encounter
== END 2025-04-22 10:16 | disposition home or self-care (01) ==
LOC: HO.HHCL 10:15
PROVIDERS: PCP Nurse Practitioner Primary Care; Visit Provider Internal Medicine
DX: K52.9 Noninfective gastroenteritis and colitis, unspecified (principal)
CPT/HCPCS: 36415; 80048

== ENCOUNTER 2025-04-23 11:24 | Outpatient (REF) | payer MEDICAID, SELFPAY ==
--- OUTSIDE RECORDS SUMMARY | 2025-04-23 13:44 | XMS_ITS | Encounter Summary ---
Author Organization [facility] Address [address] [place] [address] Care Team Providers Care Angio Technologist Name Role Phone Evy Christopher NP Primary Care Provider [phone] Encounter Details Date Type Department Care Team ([facility] st Contact Info) Description 04/20/2025 Telephone Bariatric Surgery - [place] [address] [phone] Paul Rod MD [address] [phone] Social History Tobacco Use Types Packs/Day Years [...] the 5 mg. Please give pt call [phone] documented in this encounter Plan of Treatment Upcoming Encounters Date Type Department Care Team (Late st Contact Info) Description 05/13/2025 8:00 AM EDT Appointment [facility] Xray [address] [place] [address] 06/16/2025 8:45 AM EDT Office Visit Bariatric Surgery - [place] [address] [phone] Paul Rod MD [address] [phone] 06/22/2025 11:00 AM EDT Pre-Admission Testing [facility] Pre-Admission Testing [address] [place] [address] 06/30/2025 10:00 AM EDT Hospital Encounter [facility] Main OR [address] [place] [address] Mily Cardenas MD [address] [phone] 06/30/2025 10:00 AM EDT - 06/30/2025 12:30 PM EDT Surgery [facility] Main OR [address] [place] [address] Mily Cardenas MD [address] [phone] [facility]IN[facility] REPAIR OF HIATAL HERNIA [[id number] (CPT )] Scheduled Procedures Name Priority Associated Diagnoses Date/Ti me REPAIR HERNIA HIATAL ROBOT Hiatal hernia with GERD 06/30/2025 10:00 AM EDT documented as of this encounter Visit Diagnoses Not on filedocumented in this encounter Care Teams Angio Technologist Relationship Specialty Start Date End Date Evy Christopher NP [address] [place] [phone] PCP - General 10/26/24 documented as of this encounter
[2025-04-23 13:58] LABS: Adenovirus F 40/41 Not Detected (Not Detect.); Astrovirus Not Detected (Not Detect.); Campylobacter Not Detected (Not Detect.); Cryptosporidium Not Detected (Not Detect.); Cyclospora cayetanensis Not Detected (Not Detect.); E. coli EAEC Detected (Not Detect.); E. coli EPEC Not Detected (Not Detect.); E. coli ETEC Not Detected (Not Detect.); E. coli STEC Not Detected (Not Detect.); Entamoeba histolytica Not Detected (Not Detect.); Giardia lamblia Not Detected (Not Detect.); Norovirus GI/GII Not Detected (Not Detect.); Plesiomonas shigelloides Not Detected (Not Detect.); Rotavirus A Not Detected (Not Detect.); Salmonella Not Detected (Not Detect.); Sapovirus Not Detected (Not Detect.); Shigella sp./EIEC Not Detected (Not Detect.); Vibrio Not Detected (Not Detect.); Vibrio Cholerae Not Detected (Not Detect.); Yersinia enterocolitica Not Detected (Not Detect.)
== END 2025-04-23 11:25 | disposition home or self-care (01) ==
LOC: HO.HHCLNP 11:24
PROVIDERS: Visit Provider Internal Medicine
DX: K52.9 Noninfective gastroenteritis and colitis, unspecified (principal)
CPT/HCPCS: 87507

== ENCOUNTER 2025-04-27 09:08 | Inpatient (IN) | payer MEDICAID, SELFPAY ==
[2025-04-27] VITALS (8 sets, daily range): BP systolic 104–155; BP diastolic 63–94; PULSE 51–82; RESP 12–16; TEMP 36.1–36.8; O2SAT 95–98; BMI 30.9
--- NOTE | ~2025-04-27 | MR_ITS ---
CLINICAL HISTORY: elevated LFTs MRCP without gadolinium Comparison: None provided Findings: Trace bilateral pleural effusions. Bilateral breast implants. Gallbladder is absent. No biliary duct dilatation or choledocholithiasis. Common bile duct 4 mm diameter. Liver, pancreas, spleen, and adrenal glands are within normal limits. Small cysts in the left kidney. No hydronephrosis. Visualized bowel is within normal limits. IMPRESSION: 1. No acute findings. No biliary duct dilatation or choledocholithiasis. This document has been electronically signed by: Vivien Vazquez MD on 04/28/2025 19:04:46
--- NOTE | ~2025-04-27 | US_ITS ---
EXAMINATION: Ultrasound renal bilaterally. CLINICAL INFORMATION: History of kidney stones. Costovertebral tenderness. COMPARISON: Ultrasound abdomen dated May 09, 2024. Correlated to noncontrast CT of abdomen dated March 25, 2025. TECHNIQUE: Real-time ultrasound of the kidneys using grayscale technique. FINDINGS: Right kidney: 11 x 5 x 5 cm. Volume: 166 cc. Normal echotexture. Normal renal cortical thickness. No hydronephrosis. 3 mm hyperechoic structure at the midportion of the pelvicalyceal system. Left kidney: 12 x 6 x 6 cm. Volume: 217 cc. Normal echotexture. Normal renal cortical thickness. No hydronephrosis. No gross solid or cystic lesion detected. US/US renal BI IMPRESSION: Nonobstructing 3 mm nephrolithiasis, right kidney. Electronically signed by: Angel Hull MD 04/27/2025 11:37 AM EDT
--- NOTE | ~2025-04-27 | CT_ITS ---
EXAMINATION: CT ABDOMEN PELVIS WITH IV CONTRAST HISTORY: epigastric pain, elevated lipase COMPARISON: Comparison is made with prior examinations dated 03/17/2025 and 01/10/2025. TECHNIQUE: CT scan of the abdomen and pelvis was performed following administration of 85 mL Omnipaque 350 using standard departmental protocol. Coronal and sagittal reformatted images were generated and reviewed. Oral contrast material was not administered at the request of the referring physician. This CT exam was performed with one or more of the following dose reduction techniques: automated exposure control, adjustment of the mA and/or kV according to patient size, use of iterative reconstruction technique. DLP: 659 mGy-cm FINDINGS: LOWER CHEST: There is mild dependent atelectasis at both lung bases. There is no pleural effusion. CARDIOVASCULATURE: The heart is normal in size. There is no pericardial effusion. LIVER: The liver is normal in size and contour. No liver mass is identified. The hepatic and portal veins are patent. GALLBLADDER / BILE DUCTS: The gallbladder is surgically absent. There is no intra or extrahepatic biliary ductal dilatation. SPLEEN: The spleen is normal in size. No focal splenic lesion is identified. PANCREAS: The pancreas is unremarkable in appearance. ADRENAL GLANDS: Within normal limits. KIDNEYS/RETROPERITONEUM: There is a punctate nonobstructing calculus in the lower pole calyx of the right kidney. There is no hydronephrosis. No renal masses are identified. LYMPH NODES: No abdominal or pelvic lymphadenopathy. VASCULATURE: The abdominal aorta demonstrates atherosclerotic calcification, but is normal in caliber. MESENTERY/PERITONEUM: There is trace free fluid in the pelvis. No masses. There is no free intraperitoneal gas. STOMACH: There is a small hiatal hernia. The remainder of the stomach is collapsed. SMALL BOWEL: The small bowel is normal in caliber. COLON: The colon is unremarkable. APPENDIX: Normal. URINARY BLADDER/PELVIC ORGANS: The urinary bladder is collapsed, limiting evaluation. The patient is status post hysterectomy. BONES / SOFT TISSUES: No suspicious bony or soft tissue abnormalities. CT/CT abdomen pelvis w IV con IMPRESSION: Trace free fluid in the pelvis. Incidental findings as described. Otherwise unremarkable contrast-enhanced CT of the abdomen and pelvis. Electronically signed by: Dev Valle MD 04/27/2025 01:15 PM EDT RP
--- NOTE | 2025-04-27 09:25 | ED.ABDPAIN ---
HPI - Abdominal Pain General Chief Complaint: Abdominal Pain Stated Complaint: abd pain Time Seen by Provider: 04/27/25 09:25 Source: patient Mode of arrival: ambulatory Limitations: language barrier (anguillan speaking) History of Present Illness ED Provider: Maureen Vargas PA-C HPI narrative: 44-year-old female with medical history of fibromyalgia, HLD, anxiety, renal calculi, presents to the ED today due to 4 days of left-sided CVA and abdominal pain. Patient was seen in the department 03/25 and diagnosed with right sided kidney stone. Patient returns today with stabbing intermittent left-sided pain, states the pain is similar to her right-sided kidney stone presentation, pain is associated with nausea. Patient has been taking Tylenol without effect. Denies fever, chills, chest pain, shortness of breath, urinary symptoms, black/tarry stools, diarrhea, vomiting. MD elicited complaint: abdominal pain Pertinent past history: kidney stones Onset (ago): day(s) (4) Pain Consistency: intermittent Related Data Home Medications ?Medication ?Instructions ?Recorded ?Confirmed omeprazole 20 mg capsule,delayed 20 mg PO DAILY@0630 10/06/21 01/10/25 release albuterol sulfate 90 mcg/actuation 2 puff inhalation Q4H PRN wheezing 05/09/24 01/10/25 aerosol inhaler (Ventolin HFA) rosuvastatin 40 mg tablet 40 mg PO BEDTIME 05/09/24 01/10/25 cyclobenzaprine 10 mg tablet 10 mg PO BEDTIME PRN muscle spasm 01/10/25 01/10/25 fluoxetine 20 mg capsule 20 mg PO DAILY 01/10/25 01/10/25 meloxicam 15 mg tablet 15 mg PO DAILY 01/10/25 01/10/25 Previous Rx's ?Medication ?Instructions ?Recorded acetaminophen 500 mg tablet 1,000 mg (2 x 500 mg) PO Q6H PRN 05/08/24 (Tylenol Extra Strength) fever or pain #20 tabs ibuprofen 200 mg capsule (Motrin 600 mg (3 x 200 mg) PO Q6H PRN 01/11/25 IB) pain (scale score 4-6) #30 caps ondansetron 4 mg disintegrating 4 mg PO Q8H PRN nausea and 01/11/25 tablet vomiting #15 tabs oxycodone 5 mg tablet 5 mg PO Q6H PRN Pain, 01/11/25 Moderate(Pain Scale 4-6) #16 tabs albuterol sulfate 90 mcg/actuation 1 puff inhalation QID PRN 02/05/25 aerosol inhaler shortness of breath or wheezing #6.7 grams inhalational spacing device #1 ea 02/05/25 Allergies Allergy/AdvReac Type Severity Reaction Status Date / Time No Known Allergies Allergy Verified 04/27/25 09:14 Review of Systems Review of Systems CONST: Negative for fever, body aches and chills. HENT: Negative for neck pain/stiffness, headache, congestion, sore throat, swelling. EYES: Negative for discharge/pain or vision changes. RESP: Negative for cough/hemoptysis and shortness of breath. CV: Negative chest pain, difficulty breathing, palpitations. ABD: Negative pain, nausea, vomiting. POS B/L CVA tenderness L>R, nausea. : Negative increase frequency, dysuria, blood in urine or stool. MUSC: Negative for muscle aches, edema. SKIN: Negative rash, lesions/sores. NEURO: Negative headache, dizziness, weakness. [facility] Past Medical History Attestation statement: The following information was validated with the patient. Source: old records reviewed and nursing notes reviewed Medical History Abdominal pain Transaminitis Chronic pain syndrome Fibromyalgia Hyperlipidemia Anxiety History of umbilical hernia Surgical History History of excision of mass History of cholecystectomy History of breast augmentation History of bilateral breast reduction surgery History of abdominoplasty Family History Family History Mother Colon cancer Other Asthma Social History Social History Household Members: Spouse and Children Housing: House Do you presently have visiting nurse or other home services: No Alcohol intake: never Patient Tobacco Use Status: Never used Tobacco Advance Directives: No Advance Directives Information Provided: Yes Do you have a plan to hurt others: No Plan service: No Physical Exam ED Vital Signs: Vital Signs - 24 hr 04/27/25 09:13 04/27/25 10:35 04/27/25 12:36 Temperature 97.4 F 98.2 F 98.1 F Pulse Rate 82 72 64 Respiratory Rate 16 12 16 Blood Pressure 128/84 104/69 155/94 H Pulse Oximetry 97 95 97 Oxygen Delivery Method Room Air Room Air Room Air 04/27/25 15:00 Temperature 97.7 F Pulse Rate 68 Respiratory Rate 14 Blood Pressure 125/75 Pulse Oximetry 98 Oxygen Delivery Method Room Air BMI result Body Mass Index 30.9 GENERAL APPEARANCE: ?AxOx4, uncomfortable appearing, no acute distress. HEENT: ?NC, AT. MMM. EOMI, clear conjunctiva, oropharynx clear. HEART:? Normal rate and regular rhythm, normal S1/S1, no m/r/g LUNGS:? CTAB, moving air well. No crackles or wheezes are heard. ABDOMEN: ?Soft, nondistended with good bowel sounds heard. TTP epigastric, B/L CVA tenderness, LLQ TTP, nondistended, no guarding, no overlying skin changes. BACK: No CVAT, no obvious deformity. B/L CVA TTP L>R EXTREMITIES: ?Without cyanosis, clubbing or edema. NEUROLOGICAL: ?Grossly nonfocal. Alert and oriented, moving all 4 extremities. Observed to ambulate with normal gait. Skin: ?Warm and dry without any rash. Medical Decision Making Medical Decision Making MDM Narrative: 44-year-old female with medical history of fibromyalgia, HLD, anxiety, renal calculi, presents to the ED today due to 4 days of left-sided CVA and abdominal pain. Patient was seen in the department 03/25 and diagnosed with right sided kidney stone. Patient returns today with stabbing intermittent left-sided pain, states the pain is similar to her right-sided kidney stone presentation, pain is associated with nausea. Patient has been taking Tylenol without effect. VSS, uncomfortable appearing, no acute distress, nontoxic appearing. Physical exam reveals B/L CVAT, mild diffuse abdominal tenderness. Will obtain ultrasound of bilateral kidneys. Course 11:57- ultrasound bilateral kidneys reveals nonobstructing 3 mm stone of the right kidney without hydronephrosis or hydroureter. Patient medicated with IV fluids, 30mg IV toradol, 4mg IV zofran. labs without leukocytosis, reveal elevated lipase at 362, an elevated amylase at 161, triglycerides 149 otherwise unremarkable. Urine without infection, without evidence of blood. On physical exam mild tenderness in the epigastric area, patient stated her pain has been mostly of the bilateral flanks. Upon re-evaluation after elevated lipase patient does state she is uncomfortable in the epigastric region during palpation. Patient without gallbladder. Denies alcohol use. Will evaluate abdomen with CT abdomen and pelvis with contrast. 12:40- Patient still with significant pain, will continue IV fluids, medicate with 4mg IV morphine. Awaiting read of CT abdomen/pelvis. VSS at this time. 17:04- EKG without ST/elevation, depression or T wave indicative of ischemia, inital troponin WNL.Patient with persistent abdominal pain. CT negative for acute abdomen. Medicated with 1mg dilaudid at 15:15, and additional L of IV fluids. Patient more comfortable at this time. Tried to PO challenge with crackers and apple juice, patient with abdominal pain and nausea when trying to eat. I reached out to Hospitalist Asia Castellon PA-C who agreed to admission. Patient in agreement to plan. VSS at this time. Differential Diagnosis Differential Diagnoses: The differential diagnosis associated with the presentation includes Renal calculi Renal colic Acute abdomen Pancreatitis Admission/Observation Consideration of admission/observation: Escalation of care including admission/observation considered Consult Healthcare Provider Management of the patient was discussed with: Hospitalist (Asia Castellon PA-C ) Lab Data MDM Lab Attestation statement: I reviewed the patient's lab results. 04/27/25 09:40 04/27/25 09:40 Labs: Lab Results 04/27/25 04/27/25 04/27/25 Range/Units 09:40 10:08 15:10 WBC 7.4 (4.8-10.8) X10*3/uL RBC 3.86 L (4.20-5.50) X10*6/uL Hgb 10.9 L (12.0-16.0) g/dl Hct 34.2 L (37.0-47.0) % MCV 88.6 (80.0-98.0) fL MCH 28.2 (27.0-33.0) pg MCHC 31.9 (31.0-35.0) g/dl RDW 13.3 (11.0-16.0) % Plt Count 259 (160-400) X10*3/uL MPV 10.5 (9.4-12.3) fL Immature Gran % (Auto) 0.3 (0.0-0.4) % Neut % (Auto) 60.7 (45-73) % Lymph % (Auto) 24.5 (20-40) % [place] % (Auto) 11.0 (2-11) % Eos % (Auto) 2.6 (0-4) % Baso % (Auto) 0.9 (0-2) % Lymph # (Auto) 1.8 (1.2-4.9) X10*3/uL [place] # (Auto) 0.8 (0.1-1.2) X10*3/uL Eos # (Auto) 0.2 (0.0-0.4) X10*3/uL Baso # (Auto) 0.1 (0.0-0.2) X10*3/uL Abs Immat Gran (auto) 0.02 (0.00-0.03) X10*3/uL Absolute Neuts (auto) 4.5 (2.0-8.3) x10*3/uL Absolute Nucleated RBC 0.000 (0.0-0.012) X10*3/uL Nucleated RBC % (auto) 0.0 (0.0-0.2) /100WBC Sodium 141 (135-145) mmol/L Potassium 3.4 (3.3-5.1) mmol/L Chloride 107 (96-108) mmol/L Carbon Dioxide 27 (22-29) mmol/L Anion Gap 10 L (12-20) BUN 10 (9-16) mg/dL Creatinine 0.58 (0.5-1.4) mg/dL Estim Creat Clear Calc 120.6 Estimated GFR > 60 Random Glucose 84 (60-115) mg/dL Calcium 8.8 (8.4-10.2) mg/dL Magnesium 1.9 (1.6-2.6) mg/dL Total Bilirubin 1.1 H (0.0-1.0) mg/dL AST 31 (5-31) U/L ALT 10 (0-31) U/L Alkaline Phosphatase 50 (39-117) U/L Troponin I High Sens < 2.7 (<3.5-17.0) ng/L Total Protein 6.4 L (6.5-8.0) g/dL Albumin 3.8 (3.5-5.0) g/dL Triglycerides 149 (<150) mg/dL Amylase 161 H (28-100) U/L Lipase 362 H (8-78) U/L Beta HCG, Quant < 2 mIU/mL Urine Color Yellow Urine Appearance Clear Urine pH 6.5 (5.0-9.0) Ur Specific Lindsay 1.025 (1.005-1.025) Urine Protein Negative (Neg-Trace) mg/dL Urine Glucose (UA) Negative (Negative) mg/dL Urine Ketones Trace (Negative) mg/dL Urine Blood Negative (Negative) Urine Nitrite Negative (Negative) Ur Leukocyte Esterase Negative (Negative) Independent Interpretation I performed an independent interpretation of an: EKG, Ultrasound and CT Scan Interpretation: I independently interpreted the EKG Vent. Rate : 51 BPM Atrial Rate : 51 BPM P-R Int : 160 ms QRS Dur : 86 ms QT Int : 470 ms P-R-T Axes : 56 31 -15 degrees QTcB Int : 433 ms Sinus bradycardia Nonspecific T wave abnormality Abnormal ECG When compared with ECG of 23-Jun-2024 16:53, No significant change was found Radiology Impression Discussion of test interpretation with radiology: I have reviewed the radiologist's reading. Radiologist Impression: Renal US FINDINGS: Right kidney: 11 x 5 x 5 cm. Volume: 166 cc. Normal echotexture. Normal renal cortical thickness. No hydronephrosis. 3 mm hyperechoic structure at the midportion of the pelvicalyceal system. Left kidney: 12 x 6 x 6 cm. Volume: 217 cc. Normal echotexture. Normal renal cortical thickness. No hydronephrosis. No gross solid or cystic lesion detected. US/US renal BI IMPRESSION: Nonobstructing 3 mm nephrolithiasis, right kidney. Electronically signed by: Angel Hull MD 04/27/2025 11:37 AM EDT Dictated By: Angel De Santiago MD Signed By: <Electronically signed by Angel Flynn MD in [place]> 04/27/[address] abd/pelvis FINDINGS: LOWER CHEST: There is mild dependent atelectasis at both lung bases. There is no pleural effusion. CARDIOVASCULATURE: The heart is normal in size. There is no pericardial effusion. LIVER: The liver is normal in size and contour. No liver mass is identified. The hepatic and portal veins are patent. GALLBLADDER / BILE DUCTS: The gallbladder is surgically absent. There is no intra or extrahepatic biliary ductal dilatation. SPLEEN: The spleen is normal in size. No focal splenic lesion is identified. PANCREAS: The pancreas is unremarkable in appearance. ADRENAL GLANDS: Within normal limits. KIDNEYS/RETROPERITONEUM: There is a punctate nonobstructing calculus in the lower pole calyx of the right kidney. There is no hydronephrosis. No renal masses are identified. LYMPH NODES: No abdominal or pelvic lymphadenopathy. VASCULATURE: The abdominal aorta demonstrates atherosclerotic calcification, but is normal in caliber. MESENTERY/PERITONEUM: There is trace free fluid in the pelvis. No masses. There is no free intraperitoneal gas. STOMACH: There is a small hiatal hernia. The remainder of the stomach is collapsed. SMALL BOWEL: The small bowel is normal in caliber. COLON: The colon is unremarkable. APPENDIX: Normal. URINARY BLADDER/PELVIC ORGANS: The urinary bladder is collapsed, limiting evaluation. The patient is status post hysterectomy. BONES / SOFT TISSUES: No suspicious bony or soft tissue abnormalities. CT/CT abdomen pelvis w IV con IMPRESSION: Trace free fluid in the pelvis. Incidental findings as described. Otherwise unremarkable contrast-enhanced CT of the abdomen and pelvis. Electronically signed by: Dev Valle MD 04/27/2025 01:15 PM EDT Dictated By: Dev Valle MD Signed By: <Electronically signed by Dev Valle MD in [place]> 04/27/25 1315 External Record Review External record reviewed: Inpatient record, Office record and Outpatient record Medications Administered Discontinued Medications Generic Name Dose Route Start Last Admin Trade Name Freq PRN Reason Stop Dose Admin Hydromorphone HCl 1 mg 04/27/25 15:07 04/27/25 15:15 Hydromorphone Hcl 1 Mg/Ml Syringe IVPUSH 04/27/25 15:08 1 mg ONCE ONE Administration Protocol Lactated Ringer's 1,000 mls @ 999 mls/hr 04/27/25 09:52 04/27/25 11:09 Lr IV 04/27/25 10:52 Infused .Q1H1M ONE Infusion Acetaminophen 1,000 mg in 100 mls @ 400 mls/hr 04/27/25 09:52 04/27/25 11:25 Ofirmev IV 04/27/25 10:06 Infused ONCE ONE Infusion Lactated Ringer's 1,000 mls @ 999 mls/hr 04/27/25 11:40 04/27/25 13:30 Lr IV 04/27/25 12:40 Infused .Q1H1M ONE Infusion Lactated Ringer's 1,000 mls @ 999 mls/hr 04/27/25 15:07 04/27/25 15:17 Lr IV 04/27/25 16:07 999 mls/hr .Q1H1M ONE Administration Iohexol 100 ml 04/27/25 12:34 04/27/25 12:38 Iohexol 350 Mg/Ml 100 Ml Infus..Btl IV 04/27/25 12:35 85 ml ONCE ONE Administration Ketorolac Tromethamine 30 mg 04/27/25 11:31 04/27/25 11:41 Ketorolac Tromethamine 30 Mg/Ml Vial IVPUSH 04/27/25 11:32 30 mg ONCE ONE Administration Morphine Sulfate 4 mg 04/27/25 12:38 04/27/25 12:47 Morphine Sulfate 4 Mg/Ml Cartridge IVPUSH 04/27/25 12:39 4 mg ONCE ONE Administration Protocol Ondansetron HCl 4 mg 04/27/25 11:31 04/27/25 11:41 Ondansetron Hcl 4 Mg/2 Ml Vial IVPUSH 04/27/25 11:32 4 mg ONCE ONE Administration Discharge Plan Discharge Clinical Impression: Pancreatitis Patient Disposition: Admitted As Inpatient Print Language: Guatemalan
[2025-04-27 09:49] LABS: MANUAL DIFF FLAG NO
[2025-04-27 09:51] LABS: Hematocrit 34.2 % (37.0-47.0); Hemoglobin 10.9 g/dl (12.0-16.0); Imm Gran Abs Auto 0.02 X10*3/uL (0.00-0.03); Imm Gran Pct Auto 0.3 % (0.0-0.4); Lymphocytes Absolute Auto 1.8 X10*3/uL (1.2-4.9); Mean Corpuscular HGB Conc 31.9 g/dl (31.0-35.0); Mean Corpuscular Hemoglobin 28.2 pg (27.0-33.0); Mean Corpuscular Volume 88.6 fL (80.0-98.0); NRBC Abs Auto 0.000 X10*3/uL (0.0-0.012); NRBC Pct Auto 0.0 /100WBC (0.0-0.2); Platelet Count 259 X10*3/uL (160-400); Red Blood Count 3.86 X10*6/uL (4.20-5.50); White Blood Count 7.4 X10*3/uL (4.8-10.8)
[2025-04-27] MEDS: Lactated Ringers 1,000 ML 999 ML IV ×3 (10:08→15:17)
[2025-04-27 10:13] LABS: Alanine Aminotransferase 10 U/L (0-31); Albumin Level 3.8 g/dL (3.5-5.0); Alkaline Phosphatase 50 U/L (39-117); Anion Gap 10 (12-20); Aspartate Amino Transferase 31 U/L (5-31); Blood Urea Nitrogen 10 mg/dL (9-16); Calcium 8.8 mg/dL (8.4-10.2); Carbon Dioxide 27 mmol/L (22-29); Chloride 107 mmol/L (96-108); Creatinine Clr Calc Pharmacy 120.6; Estimated Glomerular Filt Rate > 60; Potassium 3.4 mmol/L (3.3-5.1); Sodium 141 mmol/L (135-145); Total Protein 6.4 g/dL (6.5-8.0)
[2025-04-27 10:19] LABS: Appearance Urine Clear; Glucose Urine UA Negative (Negative); PH 6.5 (5.0-9.0); Specific Gravity - Urine 1.025 (1.005-1.025)
[2025-04-27 10:25] LABS: Magnesium 1.9 mg/dL (1.6-2.6)
[2025-04-27 10:34] LABS: Lipase 362 U/L (8-78)
--- OUTSIDE RECORDS SUMMARY | 2025-04-27 10:59 | XMS_ITS | Encounter Summary ---
Author Organization [facility] Address [address] [place] [address] Care Team Providers Care Housecalls Nurse Name Role Phone Evy Christopher NP Primary Care Provider [phone] Encounter Details Date Type Department Care Team ([facility] st Contact Info) Description 04/20/2025 Telephone Bariatric Surgery - [place] [address] [phone] Paul Rod MD [address] [id number] Social History Tobacco Use Types Packs/Day Years [...] the 5 mg. Please give pt call [phone] documented in this encounter Plan of Treatment Upcoming Encounters Date Type Department Care Team (Late st Contact Info) Description 04/27/2025 3:30 PM EDT Office Visit Obstetrics and Gynecology [address] [phone] Kristine Jett PA [address] [place] [address] 05/13/2025 8:00 AM EDT Appointment [facility] Xray [address] [place] [phone] 06/16/2025 8:45 AM EDT Office Visit Bariatric Surgery - [place] [address] [phone] Paul Rod MD [address] [phone] 06/22/2025 11:00 AM EDT Pre-Admission Testing [facility] Pre-Admission Testing [address] [place] [phone] 06/30/2025 10:00 AM EDT Hospital Encounter [facility] Main OR [address] [place] [phone] Mily Cardenas MD [address] [phone] 06/30/2025 10:00 AM EDT - 06/30/2025 12:30 PM EDT Surgery [facility] Main OR [address] [place] [phone] Mily Cardenas MD [address] [phone] [facility] REPAIR OF HIATAL HERNIA [[id number] (CPT )] Scheduled Procedures Name Priority Associated Diagnoses Date/Ti me REPAIR HERNIA HIATAL ROBOT Hiatal hernia with GERD 06/30/2025 10:00 AM EDT documented as of this encounter Visit Diagnoses Not on filedocumented in this encounter Care Teams Housecalls Nurse Relationship Specialty Start Date End Date Evy Christopher NP [address] [place] [id number] PCP - General 10/26/24 documented as of this encounter
--- NOTE | 2025-04-27 11:07 | PC.NURSE ---
ultrasound at bedside
--- NOTE | 2025-04-27 11:30 | PC.NURSE ---
patient continues to endorse 10/10 pain, also reporting nausea. provider made aware
[2025-04-27 11:56] LABS: Amylase 161 U/L (28-100); Triglycerides 149 mg/dL (<150)
[2025-04-27] MEDS: iohexoL 350 MG/ML 100 ML INFUS..BTL IV (12:38)
--- NOTE | 2025-04-27 14:58 | ECG_ITS ---
Test Reason : EPIGASTRIC Blood Pressure : */* mmHG Vent. Rate : 51 BPM Atrial Rate : 51 BPM P-R Int : 160 ms QRS Dur : 86 ms QT Int : 470 ms P-R-T Axes : 56 31 -15 degrees QTcB Int : 433 ms Sinus bradycardia Nonspecific T wave abnormality Abnormal ECG When compared with ECG of 23-Jun-2024 16:53, No significant change was found Referred By: Alicia Reddy Electronically Signed By: CRUZ STEINER MD
[2025-04-27 15:40] LABS: Troponin-I High Sensitivity < 2.7 ng/L (<3.5-17.0)
[2025-04-27] MEDS: Lactated Ringers 1,000 ML 100 ML IVCONT (17:29)
--- NOTE | 2025-04-27 18:25 | PM.IMHP ---
History of Present Illness Date of Service: 04/27/25 Attending physician on admission: Zabrina Nick Chief Complaint: Abdominal pain Pt is a 44-year-old female with a PMH significant for?HLD, fibromyalgia, sciatica, chronic pain syndrome,?abdominoplasty in 2020, cholecystectomy, and anxiety who presents to the ED with?worsening abdominal and lower back pain x4 days. Patient has a long history of chronic lower back and abdominal pain that has been ascribed to chronic pain syndrome secondary to her abdominoplasty in 2020. Has had multiple ED and general surgery office visits as well as hospitalizations in the past. Reports left-sided abdominal pain wraps around to back and down both legs, sharp and shooting in nature. Nausea, but no vomiting. Unable to tolerate anything by mouth during this time. Passing gas and normal bowel movements with last one yesterday. No diarrhea. Denies hx of marijuana. Drinking socially a few drinks on most weekends. In the ED pt's vitals stable. Labs were significant for amylase 161 and lipase 362. No leukocytosis. Stable normocytic anemia. No significant electrolyte abnormalities. Renal and hepatic function WNL. Troponin negative. UA negative for UTI. CT?of abd/pelvis w/contrast showing trace free fluid in pelvis, otherwise unremarkable for acute abnormalities. Renal ultrasound showing nonobstructing 3 mm nephrolithiasis of right kidney. EKG demonstrated sinus bradycardia of 51 with nonspecific T-wave inversion in V1 and V2, but no evidence of significant ST elevations or depressions. Pt was treated in the ED with acetaminophen, IVF, ketorolac, ondansetron, morphine, and hydromorphone. Pt is admitted to the hospital under observation for treatment and further evaluation of intractable abdominal pain. Review of Systems Review of Systems: Negative except for that which is stated in the HPI. [facility] Medical History Abdominal pain Transaminitis Chronic pain syndrome Fibromyalgia Hyperlipidemia Anxiety History of umbilical hernia Family History Mother Colon cancer Other Asthma Surgical History History of excision of mass History of cholecystectomy History of breast augmentation History of bilateral breast reduction surgery History of abdominoplasty Social History Household Members: Spouse and Children Housing: House Do you presently have visiting nurse or other home services: No Alcohol intake: never Patient Tobacco Use Status: Never used Tobacco Advance Directives: No Advance Directives Information Provided: Yes Do you have a plan to hurt others: No Plan service: No Meds Allergies Allergy/AdvReac Type Severity Reaction Status Date / Time No Known Allergies Allergy Verified 04/27/25 09:14 Active Medications: Current Medications Acetaminophen (Acetaminophen 325 Mg Tablet) 650 mg PO Q6H PRN PRN Reason: Pain, Mild 1-3,fever,headache Calcium Carbonate (Calcium Carbonate 750 Mg Tab.Chew) 750 mg PO Q4H PRN PRN Reason: Heartburn Lactated Ringer's (Lr) 1,000 mls @ 100 mls/hr IVCONT .Q10H [facility] Stop: 04/28/25 02:59 Last Admin: 04/27/25 17:29 Dose: 100 mls/hr Magnesium Hydroxide (Milk Of Magnesia 30 Ml Oral.Susp) 30 ml PO DAILY PRN PRN Reason: Constipation Melatonin (Melatonin 3 Mg Tablet) 6 mg PO BEDTIME PRN PRN Reason: Insomnia Morphine Sulfate (Morphine Sulfate 4 Mg/Ml Cartridge) 4 mg IVPUSH Q4H PRN; Protocol PRN Reason: Pain, Severe (Pain Scale 7-10) Last Admin: 04/27/25 17:24 Dose: 4 mg Ondansetron HCl (Ondansetron Hcl 4 Mg/2 Ml Vial) 4 mg IVPUSH Q8H PRN PRN Reason: Nausea and Vomiting Last Admin: 04/27/25 17:24 Dose: 4 mg Sodium Chloride (0.9 % Sodium Chloride Flush 3 Ml Syringe) 3 ml IVFLUSH [facility] Home Medications ?Medication ?Instructions ?Recorded ?Confirmed ?Last Taken ?Type rosuvastatin 40 mg tablet 40 mg PO BEDTIME 05/09/24 04/27/25 01/09/25 History meloxicam 15 mg tablet 15 mg PO DAILY 01/10/25 04/27/25 01/09/25 History acetaminophen 500 mg tablet 500 mg PO Q6H PRN fever or pain 04/27/25 04/27/25 Unknown History (Tylenol Extra Strength) albuterol sulfate 2.5 mg/3 mL 2.5 mg Q8H PRN wheezing 04/27/25 04/27/25 Unknown History (0.083 %) solution for nebulization famotidine 40 mg tablet 40 mg PO BEDTIME 04/27/25 04/27/25 Unknown History fluoxetine 40 mg capsule 40 mg PO DAILY 04/27/25 04/27/25 Unknown History fluticasone propionate 50 1 spray intranasal DAILY PRN 04/27/25 04/27/25 Unknown History mcg/actuation nasal Allergy Symptoms spray,suspension methocarbamol 750 mg tablet 750 mg PO Q6H PRN Muscle Spasm 04/27/25 04/27/25 Unknown History omega-3 acid ethyl esters 1 gram 1 cap PO BID 04/27/25 04/27/25 Unknown History capsule rabeprazole 20 mg tablet,delayed 20 mg PO DAILY 04/27/25 04/27/25 Unknown History release tirzepatide (weight loss) 7.5 7.5 mg subcut TU@0900 04/27/25 04/27/25 Unknown History mg/0.5 mL subcutaneous pen injector (Zepbound) Physical Exam Vital Signs and Narrative: Vital Signs: Last Vital Signs Temp 98.1 F 04/27/25 18:10 Pulse 69 04/27/25 18:10 Resp 16 04/27/25 18:10 BP 123/65 04/27/25 18:10 Pulse Ox 95 04/27/25 18:10 O2 Del Method Room Air 04/27/25 18:10 BMI result Body Mass Index 30.9 General: AOx3, no acute distress Resp: CTA bilaterally CVS: S1, S2, RRR GI: +BS, no distention, diffuse abd tenderness especially on left side Back: Left lower tenderness to palpation Skin: Warm, dry Neuro: Cranial nerves II-XII grossly intact bilaterally. Motor grossly intact bilaterally Extremities: No edema Psych: Appropriate affect Results Labs 04/27/25 09:40 04/27/25 09:40 Labs: Laboratory Results - last 24 hr 04/27/25 04/27/25 04/27/25 09:40 10:08 15:10 MCV 88.6 MCH 28.2 MCHC 31.9 RDW 13.3 Plt Count 259 MPV 10.5 Immature Gran % (Auto) 0.3 Neut % (Auto) 60.7 Lymph % (Auto) 24.5 [place] % (Auto) 11.0 Eos % (Auto) 2.6 Baso % (Auto) 0.9 Lymph # (Auto) 1.8 [place] # (Auto) 0.8 Eos # (Auto) 0.2 Baso # (Auto) 0.1 Abs Immat Gran (auto) 0.02 Absolute Neuts (auto) 4.5 Absolute Nucleated RBC 0.000 Nucleated RBC % (auto) 0.0 Anion Gap 10 L Estim Creat Clear Calc 120.6 Estimated GFR > 60 Random Glucose 84 Calcium 8.8 Magnesium 1.9 Total Bilirubin 1.1 H AST 31 ALT 10 Alkaline Phosphatase 50 Troponin I High Sens < 2.7 Total Protein 6.4 L Albumin 3.8 Triglycerides 149 Amylase 161 H Lipase 362 H Beta HCG, Quant < 2 Urine Color Yellow Urine Appearance Clear Urine pH 6.5 Ur Specific [place] 1.025 Urine Protein Negative Urine Glucose (UA) Negative Urine Ketones Trace Urine Blood Negative Urine Nitrite Negative Ur Leukocyte Esterase Negative Imaging Radiologist's Impressions: Impressions Renal Ultrasound 04/27/25 11:09 IMPRESSION: Nonobstructing 3 mm nephrolithiasis, right kidney. Electronically signed by: Angel Hull MD 04/27/2025 11:37 AM EDT RP Abdomen/Pelvis CT 04/27/25 12:20 IMPRESSION: Trace free fluid in the pelvis. Incidental findings as described. Otherwise unremarkable contrast-enhanced CT of the abdomen and pelvis. Electronically signed by: Dev Valle MD 04/27/2025 01:15 PM EDT RP Assessment and Plan (1) Intractable abdominal pain: Status: Acute Plan Pt is a 44-year-old female with a PMH significant for?HLD, fibromyalgia, sciatica, chronic pain syndrome,?abdominoplasty in 2020, cholecystectomy, and anxiety who presents to the ED with?worsening abdominal and lower back pain x4 days. Pt is admitted to the hospital under observation for treatment and further evaluation of intractable abdominal pain. Intractable abdominal pain Patient with severe, constant, sharp and stabbing left-sided abdominal pain radiating to back x4 days Elevated amylase and lipase, but unremarkable CT of abd/pelvis and renal U/S Clear liquid diet for now, advance as tolerated Protonix bid IVF, analgesics for pain management GI consult Asthma Not in acute exacerbation Continue home inhalers HLD Continue statin GERD PPI Migraines Continue sumatriptan Mood disorder Continue sertraline Full Code Attending:?Dr. Nick DVT Prophylaxis: Lovenox Pt will be admitted to the hospital under observation for treatment and further evaluation of intractable acute on chronic abdominal pain. Given that pt is unable to tolerate p.o., will require hospital level of care for administration of IVF and IV analgesics, as well as specialist consultation with GI in the morning. Quality Stroke Does the patient have a stroke diagnosis?: No VTE Prior VTE?: No VTE Risk Level:: Medical - moderate - high VTE Device Contraindication: Treatment Not Indicated VTE Drug Contraindication: N/A - Med Ordered
--- NOTE | 2025-04-27 18:33 | PHA.MEDREC ---
Pharmacy Consult ? Medication Reconciliation Pharmacy has completed the medication reconciliation.Spoke with patient in ED who confirmed all medications. Patient is no longer taking gabapentin
[2025-04-27] MEDS: 0.9 % Sodium Chloride Flush 3 ML SYRINGE IVFLUSH ×2 (19:47→19:48)
[2025-04-28] VITALS (7 sets, daily range): BP systolic 114–131; BP diastolic 65–76; PULSE 56–71; RESP 16–19; TEMP 36.1–36.4; O2SAT 93–95
--- NOTE | 2025-04-28 00:16 | PC.NURSE ---
pt c/o being ithcy all over, no rash noted. notified and benadryl 25mg po x1 ordered.
[2025-04-28 07:34] LABS: Alanine Aminotransferase 234 U/L (0-31); Albumin Level 3.3 g/dL (3.5-5.0); Alkaline Phosphatase 81 U/L (39-117); Anion Gap 8 (12-20); Aspartate Amino Transferase 545 U/L (5-31); Blood Urea Nitrogen 4 mg/dL (9-16); Calcium 8.2 mg/dL (8.4-10.2); Carbon Dioxide 28 mmol/L (22-29); Chloride 109 mmol/L (96-108); Creatinine Clr Calc Pharmacy 129.6; Estimated Glomerular Filt Rate > 60; Lipase 42 U/L (8-78); Potassium 3.9 mmol/L (3.3-5.1); Sodium 141 mmol/L (135-145); Total Protein 5.7 g/dL (6.5-8.0)
[2025-04-28] MEDS: 0.9 % Sodium Chloride Flush 3 ML SYRINGE IVFLUSH ×3 (08:16→20:14)
--- NOTE | 2025-04-28 11:50 | MHC.CM.PN ---
Addendum entered by Sole Lagos 04/28/25 16:17: Patient has been changed from OBS to INPT. Original Note: AWILDA 04/28/25 DX Intractable Abdominal Pain Pt lives with spouse and family. She is independent with all functional mobility. DP home self care. A family member will provide transportation home. A automobile assembly supervisor was utilized for the CM assessment interview.
--- NOTE | 2025-04-28 13:14 | HO.PM.IMPN ---
Subjective Subjective Date of Service: 04/28/25 Interval History: ongoing abd pain Physical Exam Vital Signs: Vital Signs: Last Vital Signs Temp 97.0 F 04/28/25 11:47 Pulse 56 04/28/25 11:47 Resp 19 04/28/25 12:58 BP 115/65 04/28/25 11:47 Pulse Ox 93 04/28/25 11:47 O2 Del Method Room Air 04/28/25 11:47 BMI result Body Mass Index 30.9 General: AO X 3, no acute distress Resp: CTA bilateral, no accessory muscles used CVS: S1,S2,RRR GI: soft, lower tender, non distended Neuro: motor grossly intact, alert Psych: appropriate affect, appropriate insight Objective Data Active Medications Acetaminophen (Acetaminophen 325 Mg Tablet) 650 mg PO Q6H PRN PRN Reason: Pain, Mild 1-3,fever,headache Albuterol Sulfate (Albuterol Sulfate (0.083%) 2.5 Mg/3 Ml Vial.Neb) 2.5 mg INHALE Q8H PRN PRN Reason: Wheezing Atorvastatin Calcium (Atorvastatin Calcium 80 Mg Tablet) 80 mg PO BEDTIME [facility] Last Admin: 04/27/25 20:55 Dose: 80 mg Documented By: MARY Calcium Carbonate (Calcium Carbonate 750 Mg Tab.Chew) 750 mg PO Q4H PRN PRN Reason: Heartburn Fluoxetine HCl (Fluoxetine Hcl 20 Mg Capsule) 40 mg PO DAILY [facility] Last Admin: 04/28/25 08:15 Dose: 40 mg Documented By: JOHN Fluticasone Propionate (Fluticasone Propionate Nasal 16 Gm [place]) 1 spray NOSTRIL-B DAILY PRN PRN Reason: Allergy Symptoms Magnesium Hydroxide (Milk Of Magnesia 30 Ml Oral.Susp) 30 ml PO DAILY PRN PRN Reason: Constipation Magnesium Hydroxide (Milk Of Magnesia 30 Ml Oral.Susp) 30 ml PO DAILY PRN PRN Reason: Constipation Melatonin (Melatonin 3 Mg Tablet) 6 mg PO BEDTIME PRN PRN Reason: Insomnia Methocarbamol (Methocarbamol 750 Mg Tablet) 750 mg PO Q6H PRN PRN Reason: Muscle Spasm Morphine Sulfate (Morphine Sulfate 4 Mg/Ml Cartridge) 4 mg IVPUSH Q4H PRN; Protocol PRN Reason: Pain, Severe (Pain Scale 7-10) Last Admin: 04/28/25 12:58 Dose: 4 mg Documented By: JOHN Ondansetron HCl (Ondansetron Hcl 4 Mg/2 Ml Vial) 4 mg IVPUSH Q8H PRN PRN Reason: Nausea and Vomiting Last Admin: 04/28/25 03:35 Dose: 4 mg Documented By: IMANI Pantoprazole Sodium (Pantoprazole Sodium 40 Mg/10 Ml Vial) 40 mg IVPUSH BID@0630,1630 [facility] Last Admin: 04/28/25 05:45 Dose: 40 mg Documented By: IMANI Sodium Chloride (0.9 % Sodium Chloride Flush 3 Ml Syringe) 3 ml IVFLUSH [facility] Last Admin: 04/28/25 08:16 Dose: 3 ml Documented By: JOHN Sodium Chloride (0.9 % Sodium Chloride Flush 3 Ml Syringe) 3 ml IVFLUSH [facility] Last Admin: 04/28/25 08:17 Dose: Not Given Documented By: JOHN Non-Admin Reason: Duplicate Order Labs 04/27/25 09:40 04/28/25 06:51 Labs: Laboratory Results - last 24 hr 04/27/25 04/28/25 15:10 06:51 Anion Gap 8 L Estim Creat Clear Calc 129.6 Estimated GFR > 60 Random Glucose 83 Calcium 8.2 L D Total Bilirubin 1.7 H AST 545 H ALT 234 H Alkaline Phosphatase 81 Troponin I High Sens < 2.7 Total Protein 5.7 L Albumin 3.3 L Lipase 42 Assessment and Plan (1) Abdominal wall pain: Status: Acute Plan 44F PMH fibromyalgia, hyperlipidemia, sciatica, chronic pain, abdominoplasty in 2020, cholecystectomy and anxiety presented with abdominal pain Abdominal pain with transaminitis ? Passed CBD stone, await MRCP, GI eval Monitor LFTs Mood disorder Fluoxetine Hyperlipidemia Hold statin due to transaminitis DVT prophylaxis with Lovenox Full Code reason for continued hospitalization:transaminits Quality Stroke Does the patient have a stroke diagnosis?: No VTE Prior VTE?: No VTE Risk Level:: Medical - moderate - high VTE Device Contraindication: Treatment Not Indicated VTE Drug Contraindication: N/A - Med Ordered
--- NOTE | 2025-04-28 22:20 | CONS_ITS ---
DATE OF SERVICE: 04/28/2025 REFERRING PHYSICIAN: PETER Chang REASON FOR CONSULTATION: Abdominal pain and history of positive stool; GI panel. HISTORY OF PRESENT ILLNESS: The patient is a pleasant 44-year-old woman, who was admitted to the hospital after presenting to the emergency department yesterday with complaints of abdominal pain, which began 4 days prior to admission. The pain was present in the left side, sharp and intermittent and radiated around into the back. There was no associated diarrhea. She did have some vomiting. She was evaluated in the emergency department with laboratory studies, which showed a mild elevation of her amylase and lipase. CT scanning was reviewed and shows no evidence of pancreatitis and no biliary ductal dilation. Liver function tests were initially normal on admission except for a slight elevation of her total bilirubin. However, today she had elevated transaminases in the 200 to 500 range with a slight elevation to her bilirubin at 1.7, and divine phos normal but increased from admission from 50 to 81. Lipase has returned to normal. She is status post cholecystectomy and has had evaluation in the past with imaging including MRI in April a year ago, which showed no evidence of choledocholithiasis. She was seen by her primary care provider for some GI symptoms including diarrhea the week before admission, and a stool test was positive for enteroaggregative E coli. Her diarrheal symptoms have resolved. PAST MEDICAL HISTORY: 1. Nephrolithiasis. 2. Hyperlipidemia. 3. Fibromyalgia. 4. Sciatica. 5. Chronic pain syndrome. 6. Cholecystectomy. 7. Hyperlipidemia. 8. Anxiety. 9. Umbilical hernia. 10. Abdominoplasty. CURRENT MEDICATIONS: Her current medication list is reviewed in the chart. ALLERGIES: THERE ARE NONE REPORTED. FAMILY HISTORY: This is reviewed with the patient and is noncontributory. SOCIAL HISTORY: There is no current tobacco, alcohol, or substance abuse. REVIEW OF SYSTEMS: SKIN: No pruritus. HEENT: Negative. CARDIOPULMONARY: No shortness of breath or chest pain. GASTROINTESTINAL: As above. GENITOURINARY: Negative. NEUROPSYCHIATRIC: Negative. PHYSICAL EXAMINATION: GENERAL: Shows a pleasant female, lying comfortably in bed. VITAL SIGNS: Reviewed in the electronic medical record and are stable. SKIN: Anicteric. HEENT: Shows no scleral icterus. NECK: Without lymphadenopathy or thyromegaly. LUNGS: Clear. HEART: Shows regular rate and rhythm. S1, S2. No murmur. ABDOMEN: Soft without focal masses or tenderness. Bowel sounds are present. No organomegaly is noted. EXTREMITIES: Without edema. LABORATORY DATA AND IMAGING STUDIES: Reviewed as above. IMPRESSION: Abdominal pain. The etiology for her abdominal pain is not clear. Because of her elevated lipase, which was returned to normal and change in her liver function tests, I would recommend obtaining MR imaging of her bile ducts to rule out a common duct stone. I discussed this with her. I have also recommended a trial of dicyclomine 20 mg 4 times daily for some of her abdominal symptoms on the possibility that there may be more of a functional abdominal component, such as irritable bowel syndrome. Her positive stool test does not need to be treated as her symptoms have resolved. Thanks for asking me to see her. I will follow her in the hospital with you. MD LEFTY Mukherjee/IGOR / [id number]
[2025-04-29 03:21] VITALS: BP 135/80; PULSE 55; RESP 16; TEMP 36; O2SAT 95
[2025-04-29 06:15] LABS: Hematocrit 35.0 % (37.0-47.0); Hemoglobin 10.9 g/dl (12.0-16.0); Mean Corpuscular HGB Conc 31.1 g/dl (31.0-35.0); Mean Corpuscular Hemoglobin 28.1 pg (27.0-33.0); Mean Corpuscular Volume 90.2 fL (80.0-98.0); NRBC Abs Auto 0.000 X10*3/uL (0.0-0.012); NRBC Pct Auto 0.0 /100WBC (0.0-0.2); Platelet Count 269 X10*3/uL (160-400); Red Blood Count 3.88 X10*6/uL (4.20-5.50); White Blood Count 5.7 X10*3/uL (4.8-10.8)
[2025-04-29 06:42] LABS: Alanine Aminotransferase 160 U/L (0-31); Albumin Level 3.4 g/dL (3.5-5.0); Alkaline Phosphatase 88 U/L (39-117); Anion Gap 10 (12-20); Aspartate Amino Transferase 198 U/L (5-31); Blood Urea Nitrogen 5 mg/dL (9-16); Calcium 8.2 mg/dL (8.4-10.2); Carbon Dioxide 28 mmol/L (22-29); Chloride 107 mmol/L (96-108); Creatinine Clr Calc Pharmacy 114.8; Estimated Glomerular Filt Rate > 60; Magnesium 2.0 mg/dL (1.6-2.6); Potassium 3.8 mmol/L (3.3-5.1); Sodium 141 mmol/L (135-145); Total Protein 5.9 g/dL (6.5-8.0)
[2025-04-29 07:35] VITALS: BP 128/75; PULSE 62; RESP 16; TEMP 36.1; O2SAT 95
[2025-04-29] MEDS: 0.9 % Sodium Chloride Flush 3 ML SYRINGE IVFLUSH ×3 (07:49→20:55)
[2025-04-29 11:20] VITALS: BP 121/70; PULSE 59; RESP 16; TEMP 36.1; O2SAT 93
--- NOTE | 2025-04-29 11:29 | P.PNIM_ITS ---
Subjective Subjective Date of Service: 04/29/25 Interval History: ongoing abd pain Physical Exam 2 Vital Signs: Vital Signs: Last Vital Signs Temp 96.9 F 04/29/25 11:20 Pulse 59 04/29/25 11:20 Resp 16 04/29/25 11:20 BP 121/70 04/29/25 11:20 Pulse Ox 93 04/29/25 11:20 O2 Del Method Room Air 04/29/25 11:20 BMI result Body Mass Index 30.9 General: AO X 3, no acute distress Resp: CTA bilateral, no accessory muscles used CVS: S1,S2,RRR GI: soft, lower tender, non distended Neuro: motor grossly intact, alert Psych: appropriate affect, appropriate insight Objective Data Active Medications Acetaminophen (Acetaminophen 325 Mg Tablet) 650 mg PO Q6H PRN PRN Reason: Pain, Mild 1-3,fever,headache Last Admin: 04/29/25 02:53 Dose: 650 mg Documented By: DELVIS Albuterol Sulfate (Albuterol Sulfate (0.083%) 2.5 Mg/3 Ml Vial.Neb) 2.5 mg INHALE Q8H PRN PRN Reason: Wheezing Calcium Carbonate (Calcium Carbonate 750 Mg Tab.Chew) 750 mg PO Q4H PRN PRN Reason: Heartburn Enoxaparin Sodium (Enoxaparin Sodium 40 Mg/0.4 Ml Syringe) 40 mg SUBCUT Q24H [facility] Last Admin: 04/29/25 07:49 Dose: 40 mg Documented By: MARIELLA Fluoxetine HCl (Fluoxetine Hcl 20 Mg Capsule) 40 mg PO DAILY [facility] Last Admin: 04/29/25 07:49 Dose: 40 mg Documented By: MARIELLA Fluticasone Propionate (Fluticasone Propionate Nasal 16 Gm [place]) 1 spray NOSTRIL-B DAILY PRN PRN Reason: Allergy Symptoms Magnesium Hydroxide (Milk Of Magnesia 30 Ml Oral.Susp) 30 ml PO DAILY PRN PRN Reason: Constipation Magnesium Hydroxide (Milk Of Magnesia 30 Ml Oral.Susp) 30 ml PO DAILY PRN PRN Reason: Constipation Melatonin (Melatonin 3 Mg Tablet) 6 mg PO BEDTIME PRN PRN Reason: Insomnia Methocarbamol (Methocarbamol 750 Mg Tablet) 750 mg PO Q6H PRN PRN Reason: Muscle Spasm Last Admin: 04/28/25 21:38 Dose: 750 mg Documented By: DELVIS Morphine Sulfate (Morphine Sulfate 4 Mg/Ml Cartridge) 4 mg IVPUSH Q4H PRN; Protocol PRN Reason: Pain, Severe (Pain Scale 7-10) Last Admin: 04/29/25 07:48 Dose: 4 mg Documented By: MARIELLA Ondansetron HCl (Ondansetron Hcl 4 Mg/2 Ml Vial) 4 mg IVPUSH Q8H PRN PRN Reason: Nausea and Vomiting Last Admin: 04/28/25 03:35 Dose: 4 mg Documented By: IMANI Pantoprazole Sodium (Pantoprazole Sodium 40 Mg/10 Ml Vial) 40 mg IVPUSH BID@0630,1630 [facility] Last Admin: 04/29/25 05:19 Dose: 40 mg Documented By: DELVIS Sodium Chloride (0.9 % Sodium Chloride Flush 3 Ml Syringe) 3 ml IVFLUSH QSHIFT [facility] Last Admin: 04/29/25 07:49 Dose: 3 ml Documented By: MARIELLA Labs 04/29/25 05:50 04/29/25 05:50 Labs: Laboratory Results - last 24 hr 04/29/25 05:50 MCV 90.2 MCH 28.1 MCHC 31.1 RDW 13.3 Plt Count 269 MPV 10.3 Absolute Nucleated RBC 0.000 Nucleated RBC % (auto) 0.0 Anion Gap 10 L Estim Creat Clear Calc 114.8 Estimated GFR > 60 Random Glucose 81 Calcium 8.2 L Magnesium 2.0 Total Bilirubin 1.2 H Direct Bilirubin 0.3 AST 198 H ALT 160 H Alkaline Phosphatase 88 Total Protein 5.9 L Albumin 3.4 L Assessment and Plan (1) Abdominal wall pain: Status: Acute Plan 44F PMH fibromyalgia, hyperlipidemia, sciatica, chronic pain, abdominoplasty in 2020, cholecystectomy and anxiety presented with abdominal pain Abdominal pain with transaminitis ? Passed CBD stone, MRCP negative, GI following LFTs improving monitor advance to solids Mood disorder Fluoxetine Hyperlipidemia Hold statin due to transaminitis DVT prophylaxis with Lovenox Full Code reason for continued hospitalization:transaminits Quality Stroke Does the patient have a stroke diagnosis?: No VTE Prior VTE?: No VTE Risk Level:: Medical - moderate - high VTE Device Contraindication: Treatment Not Indicated VTE Drug Contraindication: N/A - Med Ordered
--- NOTE | 2025-04-29 15:50 | P.PNGI_ITS ---
Subjective Subjective Date of Service: 04/29/25 Interval History: tried solids for lunch, nauseated on clear liquids Critical Care Time (minutes): 0 Physical Exam 2 Vital Signs: Vital Signs: Last Vital Signs Temp 96.9 F 04/29/25 11:20 Pulse 59 04/29/25 11:20 Resp 16 04/29/25 11:20 BP 121/70 04/29/25 11:20 Pulse Ox 93 04/29/25 11:20 O2 Del Method Room Air 04/29/25 11:20 BMI result Body Mass Index 30.9 GI: Other: abdomen is soft and nontender Objective Data Labs 04/29/25 05:50 04/29/25 05:50 Labs: Liver function tests are improved. Procedures Date of Service Date of Service: 04/29/25 Progress Note: A&P Assessment and plan (1) Elevated liver enzymes: Status: Acute Plan MRI results reviewed with patient she may have passed a CBD stone or sludge. ERCP not needed at this time continue clears for now, advance diet as tolerated. Time Spent With Patient Time: Total time managing care of this patient today ____ minutes. Quality Stroke Does the patient have a stroke diagnosis?: No VTE Prior VTE?: No VTE Risk Level:: Medical - moderate - high VTE Device Contraindication: Treatment Not Indicated VTE Drug Contraindication: N/A - Med Ordered
[2025-04-29 15:52] VITALS: BP 119/67; PULSE 66; RESP 12; TEMP 36.3; O2SAT 92
[2025-04-29] MEDS: oxyCODONE HCl Immed Release 5 MG TABLET PO ×2 (17:22→23:32)
[2025-04-29 19:39] VITALS: BP 148/75; PULSE 54; RESP 18; TEMP 36.8; O2SAT 94
[2025-04-30 03:29] VITALS: BP 115/74; PULSE 60; RESP 17; TEMP 36.3; O2SAT 93
[2025-04-30] MEDS: Milk of Magnesia 30 ML ORAL.SUSP PO (05:33)
[2025-04-30 06:10] LABS: Alanine Aminotransferase 110 U/L (0-31); Albumin Level 3.3 g/dL (3.5-5.0); Alkaline Phosphatase 92 U/L (39-117); Anion Gap 8 (12-20); Aspartate Amino Transferase 105 U/L (5-31); Blood Urea Nitrogen 4 mg/dL (9-16); Calcium 8.2 mg/dL (8.4-10.2); Carbon Dioxide 31 mmol/L (22-29); Chloride 104 mmol/L (96-108); Creatinine Clr Calc Pharmacy 114.8; Estimated Glomerular Filt Rate > 60; Magnesium 1.9 mg/dL (1.6-2.6); Potassium 3.6 mmol/L (3.3-5.1); Sodium 139 mmol/L (135-145); Total Protein 5.8 g/dL (6.5-8.0)
[2025-04-30] MEDS: 0.9 % Sodium Chloride Flush 3 ML SYRINGE IVFLUSH (07:11)
[2025-04-30 07:13] LABS: Hematocrit 33.8 % (37.0-47.0); Hemoglobin 10.7 g/dl (12.0-16.0); Mean Corpuscular HGB Conc 31.7 g/dl (31.0-35.0); Mean Corpuscular Hemoglobin 28.4 pg (27.0-33.0); Mean Corpuscular Volume 89.7 fL (80.0-98.0); NRBC Abs Auto 0.000 X10*3/uL (0.0-0.012); NRBC Pct Auto 0.0 /100WBC (0.0-0.2); Platelet Count 270 X10*3/uL (160-400); Red Blood Count 3.77 X10*6/uL (4.20-5.50); White Blood Count 6.5 X10*3/uL (4.8-10.8)
[2025-04-30] MEDS: oxyCODONE HCl Immed Release 5 MG TABLET PO (07:16)
[2025-04-30 07:22] VITALS: BP 109/65; PULSE 54; RESP 18; TEMP 36.3; O2SAT 94
--- NOTE | 2025-04-30 11:12 | P.DS_ITS ---
DS: Providers Provider Date of Service: 04/30/25 Date of admission: 04/28/25 14:12 Date of discharge: 04/30/25 Primary care physician: Evy Christopher NP Consults: 04/27/25 18:53 Consult to Gastroenterology Routine Consulting Provider: Giovany Garrison Reason for consultation: Intractable abd pain, EAEC+ on 04/23 DS: Diagnosis Discharge Diagnosis (1) Elevated liver enzymes: Status: Acute DS: Summary Hospital Course Hospital Course: from initial hpi: 44-year-old female with a PMH significant for?HLD, fibromyalgia, sciatica, chronic pain syndrome,?abdominoplasty in 2020, cholecystectomy, and anxiety who presents to the ED with?worsening abdominal and lower back pain x4 days. Patient has a long history of chronic lower back and abdominal pain that has been ascribed to chronic pain syndrome secondary to her abdominoplasty in 2020. Has had multiple ED and general surgery office visits as well as hospitalizations in the past. Reports left-sided abdominal pain wraps around to back and down both legs, sharp and shooting in nature. Nausea, but no vomiting. Unable to tolerate anything by mouth during this time. Passing gas and normal bowel movements with last one yesterday. No diarrhea. Denies hx of marijuana. Drinking socially a few drinks on most weekends. In the ED pt's vitals stable. Labs were significant for amylase 161 and lipase 362. No leukocytosis. Stable normocytic anemia. No significant electrolyte abnormalities. Renal and hepatic function WNL. Troponin negative. UA negative for UTI. CT?of abd/pelvis w/contrast showing trace free fluid in pelvis, otherwise unremarkable for acute abnormalities. Renal ultrasound showing nonobstructing 3 mm nephrolithiasis of right kidney. EKG demonstrated sinus bradycardia of 51 with nonspecific T-wave inversion in V1 and V2, but no evidence of significant ST elevations or depressions. Pt was treated in the ED with acetaminophen, IVF, ketorolac, ondansetron, morphine, and hydromorphone. Pt is admitted to the hospital under observation for treatment and further evaluation of intractable abdominal pain. hospital course: Patient was admitted with abdominal pain with transaminitis. Possibly due to a passed CBD stone. MRCP was negative. Symptoms improved and LFTs down trended. Patient now tolerating solid diet and will be discharged home. Statin will be on hold and should repeat labs in 1 week and follow up with Gastroenterology. For mood disorder was continued on fluoxetine. For hyperlipidemia statin held as mentioned. Time Attestation Discharge Coordination Time (in mins): 35 Quality: Safe Use of Opioids Does Pt have an Active Cancer Diagnosis on the Problem List?: No Quality: Stroke Does the patient have a stroke diagnosis?: No Physical Exam Vital Signs: Vital Signs: Last Vital Signs Temp 97.3 F 04/30/25 07:22 Pulse 54 04/30/25 07:22 Resp 18 04/30/25 07:22 BP 109/65 04/30/25 07:22 Pulse Ox 94 04/30/25 07:22 O2 Del Method Room Air 04/30/25 07:22 BMI result Body Mass Index 30.9 GI: Other: abdomen is soft and nontender DS: Data Data Completed and Pending Labs on day of discharge: Laboratory Results - last 24 hr 04/30/25 05:26 WBC 6.5 RBC 3.77 L Hgb 10.7 L Hct 33.8 L MCV 89.7 MCH 28.4 MCHC 31.7 RDW 13.2 Plt Count 270 MPV 10.7 Absolute Nucleated RBC 0.000 Nucleated RBC % (auto) 0.0 Sodium 139 Potassium 3.6 Chloride 104 Carbon Dioxide 31 H Anion Gap 8 L BUN 4 L Creatinine 0.61 Estim Creat Clear Calc 114.8 Estimated GFR > 60 Random Glucose 87 Calcium 8.2 L Magnesium 1.9 Total Bilirubin 0.6 Direct Bilirubin 0.2 AST 105 H ALT 110 H Alkaline Phosphatase 92 Total Protein 5.8 L Albumin 3.3 L Discharge Plan Discharge Anticipated Discharge Date/Time: 04/30/25 11:09 Patient Disposition: Home, Self-Care Discharge Diagnosis: suspected passed gallstone Referrals: Giovany Garrison MD [Physician, Gastroenterology] - 1 Week Evy Christopher NP [Primary Care Provider, Internal Medicine] - 1 Week Discharge Medications: Continued meloxicam 15 mg tablet 15 mg PO DAILY albuterol sulfate 90 mcg/actuation HFA aerosol inhaler 1 puff inhalation QID PRN (Reason: shortness of breath or wheezing) Qty: 6.7 1RF (DME) inhalational spacing device Spacer See Rx Instructions .Route Qty: 1 0RF Rx Instructions: As directed fluoxetine 40 mg Capsule 40 mg PO DAILY rabeprazole 20 mg tablet,delayed release (DR/EC) 20 mg PO DAILY albuterol sulfate 2.5 mg /3 mL (0.083 %) solution for nebulization 2.5 mg Q8H PRN (Reason: wheezing) famotidine 40 mg tablet 40 mg PO BEDTIME methocarbamol 750 mg tablet 750 mg PO Q6H PRN (Reason: Muscle Spasm) fluticasone propionate 50 mcg/actuation spray,suspension 1 spray intranasal DAILY PRN (Reason: Allergy Symptoms) omega-3 acid ethyl esters 1 gram capsule 1 cap PO BID Zepbound 7.5 mg/0.5 mL pen injector 7.5 mg subcut TU@0900 acetaminophen [Tylenol Extra Strength] 500 mg tablet 500 mg PO Q6H PRN (Reason: fever or pain) Held rosuvastatin 40 mg tablet 40 mg PO BEDTIME Hold Instructions: Resume on 05/05/25. Discharge Orders: Discharge Order (Routine); Ordered 04/30/25 Ordered By: Lam Hernandez Diet: Advance to usual diet Activity on Discharge: As tolerated Stand Alone Forms: Patient Portal Discharge page Print Language: Upper Sorbian Other Ambulatory Orders: Comprehensive Met. Panel (Routine) Timeframe: 1 Week Facility: [facility] - Location: Laboratory Ordered By: Lam Hernandez Care Plan Goals: recovery Health Concerns: transaminities Plan of Treatment: hold statin for a week, repeat labs, follow up with gi Assessment: see above
--- NOTE | 2025-04-30 11:33 | MHC.CM.PN ---
PT TO DC HOME TODAY VIA FAMILY TRANSPORT
[2025-04-30 12:46] VITALS: BP 129/63; PULSE 63; RESP 20; TEMP 36.4; O2SAT 96
== END 2025-04-30 12:47 | disposition home or self-care (01) | DRG 251 ==
LOC: HO.ED 10:21 → HO.EDOVER 17:08 → HO.S3 17:42
PROVIDERS: Internal Medicine Gastroenterology; Admitting Provider Student in an Organized Health Care Education/Training Program; Emergency Provider Emergency Medicine; PCP Nurse Practitioner Primary Care; Visit Provider Internal Medicine
DX: R10.9 Unspecified abdominal pain (principal); E78.5 Hyperlipidemia, unspecified; F39 Unspecified mood [affective] disorder; J45.909 Unspecified asthma, uncomplicated; K21.9 Gastro-esophageal reflux disease without esophagitis; G43.909 Migraine, unspecified, not intractable, without status migrainosus; Z79.899 Other long term (current) drug therapy
CPT/HCPCS: 36415; 74177; 74181; 76775; 80048; 80053; 80076; 81003; 82150; 83690; 83735; 84478; 84484; 84702; 85025; 85027; 93005; 99285; J0131; J1171; J1650; J1885; J2270; J2405; J2470; J7120; Q9967

== ENCOUNTER → 2025-04-27 09:53 | Outpatient (BNV) | payer MEDICAID, SELFPAY | PROVIDERS: Emergency Provider Emergency Medicine; PCP Nurse Practitioner Primary Care; Visit Provider Radiology Diagnostic Radiology | DX: R10.13 Epigastric pain (principal); R74.8 Abnormal levels of other serum enzymes; N20.0 Calculus of kidney | CPT/HCPCS: 74177; 76775 ==

== ENCOUNTER → 2025-04-27 14:58 | Outpatient (BNV) | payer MEDICAID, SELFPAY | PROVIDERS: Admitting Provider Student in an Organized Health Care Education/Training Program; Emergency Provider Emergency Medicine; PCP Nurse Practitioner Primary Care; Visit Provider Internal Medicine Cardiovascular Disease | DX: R00.1 Bradycardia, unspecified (principal) | CPT/HCPCS: 93010 ==

== ENCOUNTER → 2025-04-27 16:53 | Outpatient (BNV) | payer MEDICAID, SELFPAY | PROVIDERS: Admitting Provider Student in an Organized Health Care Education/Training Program; Emergency Provider Emergency Medicine; PCP Nurse Practitioner Primary Care; Visit Provider Student in an Organized Health Care Education/Training Program | DX: R10.9 Unspecified abdominal pain (principal) | CPT/HCPCS: 99222; 99233 ==

== ENCOUNTER 2025-04-28 14:12 | Outpatient (BNV) | payer MEDICAID, SELFPAY | END 2025-04-28 17:01 | PROVIDERS: Admitting Provider Student in an Organized Health Care Education/Training Program; Emergency Provider Emergency Medicine; PCP Nurse Practitioner Primary Care; Visit Provider Radiology Diagnostic Radiology | DX: R74.01 Elevation of levels of liver transaminase levels (principal) | CPT/HCPCS: 74181 ==

== ENCOUNTER 2025-05-04 11:50 | Outpatient (REF) | payer MEDICAID, SELFPAY ==
--- OUTSIDE RECORDS SUMMARY | 2025-05-01 23:59 | XMS_ITS | Continuity of Care Document ---
Author Organization [facility] Address [address] [place] [address] [address], [address] [place] [address]- Care Team Providers Care Volleyball Assembler Name Role Phone Ashwin PAPER CUP MACHINE TENDER, Evy Perez Primary Care Physician [place] [facility]): [place]01[place]25 - 05/01/25 [facility] [address] [place] [address] Drive [address] [place], [place] [address] Encounter Type: Triage Allergies, Adverse Reactions, Alerts No Known Allergies Immunizations Given and Recorded Vaccine Date Status Refusal Reason SARS-CoV-2 mRNA ([id number]) vax 11/27/21 Recorded SARS-CoV-2 (COVID-19) mRNA BNT-162b2 vac 03/23/21 Recorded SARS-CoV-2 (COVID-19) mRNA BNT-162b2 vac 03/02/21 Recorded influenza virus vaccine, inactivated 1 09/29/10 Gi haris 1Admin Note: per pt Medications Cetirizine = 10 mg, By Mouth, 0 Refills, Maintenance, 03/24/25 10:22:00 AM EDT, Partial fill upon patient request if the prescription is for a schedule II opioid drug. Start Date: 03/24/25 Status: Ordered Repeat number: 1 Dexilant 60 mg oral delayed release capsule 1 capsule = 60 mg, By Mouth, Daily, # 90 capsule, 3 Refills, Maintenance, 10/27/24 8:38:00 AM EST, CR Capsule, [facility] #[id number], Partial fill upon patient request if the prescription is for a schedule II opioid drug., 160, cm, 10/27/24 8:25:00 EST, Height, 80.7, kg, 10/16/24 14:36:00 EST, Dry Weight Start Date: 10/27/24 Status: Ordered Quantity: 90.0 Unit: capsule Repeat number: 4 Indications: Gastro-esophageal reflux disease without esophagitis; diclofenac sodium 1% topical cream 0 Refills, Maintenance, 03/24/25 10:23:00 AM EDT, Partial fill upon patient request if the prescription is for a schedule II opioid drug. Start Date: 03/24/25 Status: Ordered Repeat number: 1 EPINEPHrine 0.3 mg injectable solution = 0.3 mg, Intramuscular, Once, 0 Refills, Maintenance, 03/24/25 10:23:00 AM EDT, Partial fill upon patient request if the prescription is for a schedule II opioid drug. Start Date: 03/24/25 Status: Ordered Repeat number: 1 esomeprazole 40 mg oral enteric coated capsule 1 capsule, By Mouth, 2 times a day, # 90 capsule, 0 Refills, Maintenance, 09/05/24 11:50:00 AM EST, [facility] #[id number], 160, cm, 09/01/24 9:42:00 EST, Height, 81.9, kg, 06/04/24 14:06:00 EDT,Dry Weight Start Date: 09/05/24 Status: Ordered Quantity: 90.0 Unit: capsule Repeat number: 1 famotidine 40 mg oral tablet 1 tablet = 40 mg, By Mouth, Daily at bedtime, # 30 tablet, 5 Refills, Maintenance, 03/31/25 3:34:00 PM EDT, Tablet, [facility] #[id number], Partial fill upon patient request if the prescription isfor a schedule II opioid drug., 160, cm, 03/31/25 15:15:00 EDT, Height, 84, kg, 03/24/25 10:10:00 EDT, Dry Weight Start Date: 03/31/25 Status: Ordered Quantity: 30.0 Unit: tablet Repeat number: 6 Indications: Gastro-esophageal reflux disease without esophagitis; Fish Oil = 500 mg, By Mouth, 0 Refills, Maintenance, 03/24/25 10:23:00 AM EDT, Partial fill upon patient request if the prescription is for a schedule II opioid drug. Start Date: 03/24/25 Status: Ordered Repeat number: 1 Flonase Allergy Relief 50 mcg/inh nasal spray 1 sprays = 50 mcg, Daily, 0 Refills, Maintenance, 03/24/25 10:24:00 AM EDT, Partial fill upon patient request if the prescription is for a schedule II opioid drug. Start Date: 03/24/25 Status: Ordered Repeat number: 1 Fluoxetine = 20 mg, By Mouth, Daily, 0 Refills, Maintenance, 03/24/25 10:24:00 AM EDT, Partial fill upon patient request if the prescription is for a schedule II opioid drug. Start Date: 03/24/25 Status: Ordered Repeat number: 1 Lidoderm 5% film 1 patch, Topically, Daily, remove patches after 12 hours, # 10 patch, 0 Refills, Maintenance, 02/26/24 1:51:00 PM EDT, [facility] #[id number], Partial fill upon patient request if the prescription is for a schedule II opioid drug., 1 patch Topically Daily,Instr:remove patches after 12 hours, 160, cm, 02/26/24 7:26:00 EDT, Height, 79.6, kg, 02/26/24 7:26:00 EDT, Dry Weight Start Date: 02/26/24 Status: Ordered Quantity: 10.0 Unit: patch Repeat number: 1 Loratadine 10 mg, By Mouth, Daily, Refills 0, Maintenance, 03/24/25 10:25:00 AM EDT, Partial fill upon patient request if the prescription is for a schedule II opioid drug. Start Date: 03/24/25 Status: Ordered Repeat number: 1 MiraLax oral powder for reconstitution = 17 Gm, By Mouth, Daily, dissolve in water or juice. My increase to 2-3 times a day as needed for constipation, # 255 Gm, 2 Refills, Maintenance, 10/27/24 8:42:00 AM EST, [facility] #[id number], Partial fill upon patient request if the [...] Quantity: 255.0 Unit: g Repeat number: 3 Indications: Constipation, unspecified; naproxen 500 mg oral tablet 1 tablet [...] Refills, Maintenance, 07/14/24 3:00:00 PM EDT, Tablet, [facility] #[id number], Partial fill upon patient request if the prescription is for a schedule II opioid drug., 157, cm, 07/14/24 14:14:00 EDT, Height, 81.9, kg, 06/04/24 14:06:00 EDT, Dry Weight Start Date: 07/14/24 Status: Ordered Quantity: 40.0 Unit: tablet Repeat number: 2 oxyCODONE 5 mg oral capsule 1 capsule = 5 mg, By Mouth, Every 6 hours, 0 Refills, Maintenance, 03/24/25 10:26:00 AM EDT, Partialfill upon patient request if the prescription is for a schedule II opioid drug. Start Date: 03/24/25 Status: Ordered Repeat number: 1 Pantoprazole = 20 mg, By Mouth, Daily, 0 Refills, Maintenance, 03/24/25 10:26:00 AM EDT Start Date: 03/24/25 Status: Ordered Repeat number: 1 RABEprazole 20 mg oral delayed release tablet 1 tablet = 20 mg, By Mouth, Daily, # 30 tablet, 5 Refills, Maintenance, 03/31/25 3:34:00 PM EDT, EC Tablet, [facility] #[id number], Partial fill upon patient request if the prescription is for a schedule II opioid drug., 160, cm, 03/31/25 15:15:00 EDT, Height, 84, kg, 03/24/25 10:10:00 EDT, Dry Weight Start Date: 03/31/25 Status: Ordered Quantity: 30.0 Unit: tablet Repeat number: 6 Indications: Gastro-esophageal reflux disease without esophagitis; rosuvastatin 40 mg oral tablet TAKE 1 TABLET BY MOUTH EVERY DAY AT BEDTIME Start Date: 06/14/23 Status: Ordered Repeat number: 1 Ventolin HFA 108 mcg/inh inhalation aerosol with adapter INHALE 2 PUFFS BY MOUTH EVERY 4 HOURS NEEDED FOR WHEEZING Start Date: 06/14/23 Status: Ordered Repeat number: 1 Zepbound Pen 7.5 mg/0.5 mL subcutaneous solution 0 Refills, Maintenance, 04/22/25 3:28:00 PM EDT, Partial fill upon patient request if the prescription is for a schedule II opioid drug. Start Date: 04/22/25 Status: Ordered Repeat number: 1 Problem List [...] Team Personnel Name: Liliam Downing RN Position: [facility] AMB Nurse Member Role: Primary Care Nurse Name: Patricia Feng RN Position: [facility] Onco RN Member Role: Primary Care Nurse Name: Shelly Anton RN Position: [facility] RN Member Role: Primary Care Nurse Name: Rena Alejandra Position: [facility] Outreach Member Role: Lifetime Consulting Physician Name: vEy Christopher NP Position: [facility] Outreach Member Role: PCP Address: [address] [place] [address] Telecom: Name: Albertina Luna RN Position: [facility] RN Member Role: Primary Care Nurse Care Team Related Persons Name: SMOOTH QUIROZ Insurance Providers Guarantor name: JOSEPH COLIN [facility] Information #: 1 Payer: [employer] Payer Identifier: AMANDA Member Number: [id number] Group Number: AMANDA Subscriber Identifier: [id number] Relationship to Subscriber: self Coverage Type: MEDICAID Coverage Verification Date: NA Telecom: AMANDA Address: NA
--- OUTSIDE RECORDS SUMMARY | 2025-05-04 12:42 | XMS_ITS | Encounter Summary ---
Author Organization [employer] Address [address] [facility] 7t [place] [address] Care Team Providers Care Curer Acid Drum Name Role Phone Evy Christopher Primary Care Provider [phone] Romeo Echavarria RN Unavailable [phone] Romeo Echavarria RN Unavailable [phone] Encounter Details Date Type Department Care Team ([facility] Contact Info) Description 12/04/2022 Telephone [facility] MEDICINE [address] [place] [address] [phone] Evy Christopher ANP [address] [place] [phone] Social History Tobacco Use Types Packs/Day Years [...] Upcoming Encounters Date Type Department Care Team ([facility] Contact Info) Description 05/05/2025 1:45 PM EDT Office Visit [facility] MEDICINE [address] [place] [address] [phone] Afua Alfred MD [address] [place] [address] documented as of this encounter Visit Diagnoses Not on filedocumented in this encounter Care Teams Curer Acid Drum Relationship Specialty Start Date End Date Evy Christopher ANP [address] [place] [address] PCP - General Family Medicine 06/20/21 Romeo Echvaarria, RN [address] [place] [address] Foot CasterFertilizing Machine Operator 12/25/24 Romeo Echavarria, SUKHWINDER [address] [place] [address] Registered Nurse Family Medicine 04/28/25 04/28/25 documented as of this encounter
--- OUTSIDE RECORDS SUMMARY | 2025-05-04 12:42 | XMS_ITS | Encounter Summary ---
Author Organization [facility] Address [address] [place] [address] Care Team Providers Care Inspector Hot Forgings Name Role Phone Evy Christopher NP Primary Care Provider [phone] Encounter Details Date Type Department Care Team ([facility] st Contact Info) Description 04/20/2025 Telephone Bariat[facility] Surgery - [place] [address] [phone] Paul Rod MD [address] [address] Social History Tobacco Use Types Packs/Day Years [...] the 5 mg. Please give pt call [phone] documented in this encounter Plan of Treatment Upcoming Encounters Date Type Department Care Team (Late st Contact Info) Description 05/13/2025 8:00 AM EDT Appointment [facility] Xray [address] [place] [address] 06/16/2025 8:45 AM EDT Office Visit Bariatric Surgery - [place] [address] [phone] Paul Rod MD [address] [address] 06/22/2025 11:00 AM EDT Pre-Admission Testing [facility] Pre-Admission Testing [address] [place] [address] 06/30/2025 10:00 AM EDT Hospital Encounter [facility] Main OR [address] [place] [address] Mily Cardenas MD [address] [address] 06/30/2025 10:00 AM EDT - 06/30/2025 12:30 PM EDT Surgery [facility] Main OR [address] [place] [address] Mily Cardenas MD [address] [address] [facility] REPAIR OF HIATAL HERNIA [[id number] (CPT )] Scheduled Procedures Name Priority Associated Diagnoses Date/Ti me REPAIR HERNIA HIATAL ROBOT Hiatal hernia with GERD 06/30/2025 10:00 AM EDT documented as of this encounter Visit Diagnoses Not on filedocumented in this encounter Care Teams Inspector Hot Forgings Relationship Specialty Start Date End Date Evy Christopher NP [address] [place] [address] PCP - General 10/26/24 documented as of this encounter
[2025-05-04 13:16] LABS: Leukocytes Stool Qualitative NEGATIVE (NEGATIVE)
== END 2025-05-04 11:51 | disposition home or self-care (01) ==
LOC: HO.HHCLNP 11:50
PROVIDERS: Visit Provider Internal Medicine
DX: K52.9 Noninfective gastroenteritis and colitis, unspecified (principal)
CPT/HCPCS: 89055

== ENCOUNTER 2025-05-05 15:30 | Outpatient (REF) | payer MEDICAID, SELFPAY ==
--- OUTSIDE RECORDS SUMMARY | 2025-05-05 15:57 | XMS_ITS | Encounter Summary ---
Author Organization [employer] Address [address] [facility] 7t [place] [address] Care Team Providers Care Radar Scientist Name Role Phone Evy Christopher Primary Care Provider [phone] Romeo Echavarria RN Unavailable [phone] Romeo Echavarria RN Unavailable [phone] Encounter Details Date Type Department Care Team ([facility] Contact Info) Description 12/04/2022 Telephone [facility] MEDICINE [address] [place] [address] [phone] Evy Christopher ANP [address] [place] [address] Social History Tobacco Use Types Packs/Day Years [...] Upcoming Encounters Date Type Department Care Team ([facility] Contact Info) Description 07/17/2025 9:15 AM EDT Office Visit [facility] MEDICINE [address] [place] [phone] Evy Christopher ANP [address] [place] [address] documented as of this encounter Visit Diagnoses Not on filedocumented in this encounter Care Teams Radar Scientist Relationship Specialty Start Date End Date Evy Christopher ANP [address] [place] [address] PCP - General Family Medicine 06/20/21 Romeo Echavarria RN [address] [place] [address] ConciliatorCore Finisher 12/25/24 Romeo Echavarria RN [address] [place] [address] Registered Nurse Family Medicine 04/28/25 04/28/25 documented as of this encounter
--- OUTSIDE RECORDS SUMMARY | 2025-05-05 15:57 | XMS_ITS | Encounter Summary ---
Author Organization [facility] Address [address] [place] [address] Care Team Providers Care Weld Engineer Name Role Phone Evy Christopher NP Primary Care Provider [phone] Encounter Details Date Type Department Care Team ([facility] st Contact Info) Description 04/20/2025 Telephone Bariatric Surgery - [place] [address] [phone] Paul Rod MD [address] [address] Social History Tobacco Use Types Packs/Day Years [...] the 5 mg. Please give pt call [phone] documented in this encounter Plan of Treatment Upcoming Encounters Date Type Department Care Team (Late st Contact Info) Description 05/13/2025 8:00 AM EDT Appointment [facility] Xray [address] [place] [address] 06/16/2025 8:45 AM EDT Office Visit Bariatric Surgery - [place] [address] [phone] Paul Rod MD [address] [address] 06/22/2025 11:00 AM EDT Pre-Admission Testing [facility] Pre-Admission Testing [address] [place] [address] 06/30/2025 10:00 AM EDT Hospital Encounter [facility] Main OR [address] [place] [address] Mily Cardenas MD [address] [phone] 06/30/2025 10:00 AM EDT - 06/30/2025 12:30 PM EDT Surgery [facility] Main OR [address] [place] [address] Mily Cardenas MD [address] [phone] [facility] REPAIR OF HIATAL HERNIA [[id number] (CPT )] Scheduled Procedures Name Priority Associated Diagnoses Date/Ti me REPAIR HERNIA HIATAL ROBOT Hiatal hernia with GERD 06/30/2025 10:00 AM EDT documented as of this encounter Visit Diagnoses Not on filedocumented in this encounter Care Teams Weld Engineer Relationship Specialty Start Date End Date Evy Christopher NP [address] [place] [address] PCP - General 10/26/24 documented as of this encounter
[2025-05-05 17:50] LABS: Alanine Aminotransferase 52 U/L (0-31); Albumin Level 4.3 g/dL (3.5-5.0); Alkaline Phosphatase 72 U/L (39-117); Anion Gap 13 (12-20); Aspartate Amino Transferase 37 U/L (5-31); Blood Urea Nitrogen 10 mg/dL (9-16); Calcium 9.3 mg/dL (8.4-10.2); Carbon Dioxide 28 mmol/L (22-29); Chloride 105 mmol/L (96-108); Estimated Glomerular Filt Rate > 60; Lipase 53 U/L (8-78); Potassium 3.9 mmol/L (3.3-5.1); Sodium 142 mmol/L (135-145); Total Protein 7.3 g/dL (6.5-8.0)
[2025-05-06 11:47] LABS: Immunoglobulin G Subclass 1 728 mg/dL (382-929); Immunoglobulin G Subclass 2 273 mg/dL (241-700); Immunoglobulin G Subclass 3 44 mg/dL (22-178); Immunoglobulin G Subclass 4 71.8 mg/dL (4-86); Immunoglobulin G Total 1162 mg/dL (600-1640)
[2025-05-06 14:24] LABS: Proteinase 3 PR3 Antibodies <1.0 AI
[2025-05-06 19:08] LABS: Thyroglobulin Antibodies <1 IU/mL (< or = 1)
[2025-05-10 21:09] LABS: Anti Nuclear Antibody Pattern Nuclear, Nucleolar; Anti Nuclear Antibody Screen POSITIVE (NEGATIVE); Anti Nuclear Antibody Titer 1:80 titer
[2025-05-11 21:04] LABS: Liver Kidney Microsomal Ab <=20.0 U (<=20.0)
== END 2025-05-05 15:31 | disposition home or self-care (01) ==
LOC: HO.HHCL 15:30
PROVIDERS: Internal Medicine; PCP Nurse Practitioner Primary Care; Visit Provider Student in an Organized Health Care Education/Training Program
DX: R74.8 Abnormal levels of other serum enzymes (principal); K86.1 Other chronic pancreatitis
CPT/HCPCS: 36415; 80053; 82784; 83690; 86015; 86021; 86038; 86039; 86376; 86381; 86431; 86800

== ENCOUNTER 2025-05-07 13:17 | Outpatient (REF) | payer MEDICAID, SELFPAY ==
--- OUTSIDE RECORDS SUMMARY | 2025-05-07 13:22 | XMS_ITS | Encounter Summary ---
Author Organization [facility] Address [address] [place] [address] Care Team Providers Care Manager Life Name Role Phone Evy Christopher NP Primary Care Provider [phone] Encounter Details Date Type Department Care Team ([facility] st Contact Info) Description 04/20/2025 Telephone Bariatric Surgery - [place] [address] [phone] Paul Rod MD [address] [address] Social History Tobacco Use Types Packs/Day Years [...] the 5 mg. Please give pt call [phone] documented in this encounter Plan of Treatment Upcoming Encounters Date Type Department Care Team (Late st Contact Info) Description 05/13/2025 8:00 AM EDT Appointment [facility] Xray [address] [place] [address] 05/20/2025 8:30 AM EDT Office Visit Bariatric Surgery [facility] [address] [phone] Mily Cardenas MD [address] [phone] 06/16/2025 8:45 AM EDT Office Visit [facility] [address] [phone] Paul Rod MD [address] [address] 06/22/2025 11:00 AM EDT Pre-Admission Testing [facility] Pre-Admission Testing [address] [place] [phone] 06/30/2025 10:00 AM EDT Hospital Encounter [facility] Main OR [address] [place] [phone] Mily Cardenas MD [address] [phone] 06/30/2025 10:00 AM EDT - 06/30/2025 12:30 PM EDT Surgery [facility] Main OR [address] [place] [phone] Mily Cardenas MD [address] [phone] [facility] REPAIR OF HIATAL HERNIA [[id number] (CPT )] Scheduled Procedures Name Priority Associated Diagnoses Date/Ti me REPAIR HERNIA HIATAL ROBOT Hiatal hernia with GERD 06/30/2025 10:00 AM EDT documented as of this encounter Visit Diagnoses Not on filedocumented in this encounter Care Teams Manager Life Relationship Specialty Start Date End Date Evy Christopher NP [address] [place] [address] PCP - General 10/26/24 documented as of this encounter
--- OUTSIDE RECORDS SUMMARY | 2025-05-07 13:22 | XMS_ITS | Encounter Summary ---
Author Organization [employer] Address [address] [place] [address] Care Team Providers Care Cutter Machine Name Role Phone Evy Christopher Primary Care Provider [phone] Romeo Echavarria RN Unavailable [phone] Romeo Echavarria RN Unavailable [phone] Encounter Details Date Type Department Care Team ([facility] Contact Info) Description 12/04/2022 Telephone [facility] [address] [place] [address] [phone] Evy Christopher ANP [address] [place] [id number] Social History Tobacco Use Types Packs/Day Years [...] ([facility] Contact Info) Description 07/17/2025 9:15 AM EDT Office Visit [facility] [address] [place] [phone] Evy Christopher ANP [address] [place] [address] documented as of this encounter Visit Diagnoses Not on filedocumented in this encounter Care Teams Cutter Machine Relationship Specialty Start Date End Date Evy Christopher ANP [address] [place] [address] PCP - General Family Medicine 06/20/21 Romeo Echavarria RN [address] [place] [address] Rn HemodialysisChild Nutrition Assistant 12/25/24 Romeo Echavarria RN [address] [place] [address] Registered Nurse Family Medicine 04/28/25 04/28/25 documented as of this encounter
[2025-05-07 17:10] LABS: MANUAL DIFF FLAG NO
[2025-05-07 17:26] LABS: Hematocrit 37.7 % (37.0-47.0); Hemoglobin 11.6 g/dl (12.0-16.0); Imm Gran Abs Auto 0.03 X10*3/uL (0.00-0.03); Imm Gran Pct Auto 0.4 % (0.0-0.4); Lymphocytes Absolute Auto 2.0 X10*3/uL (1.2-4.9); Mean Corpuscular HGB Conc 30.8 g/dl (31.0-35.0); Mean Corpuscular Hemoglobin 27.8 pg (27.0-33.0); Mean Corpuscular Volume 90.2 fL (80.0-98.0); NRBC Abs Auto 0.000 X10*3/uL (0.0-0.012); NRBC Pct Auto 0.0 /100WBC (0.0-0.2); Platelet Count 334 X10*3/uL (160-400); Red Blood Count 4.18 X10*6/uL (4.20-5.50); White Blood Count 8.4 X10*3/uL (4.8-10.8)
[2025-05-07 17:42] LABS: Alanine Aminotransferase 36 U/L (0-31); Albumin Level 4.2 g/dL (3.5-5.0); Alkaline Phosphatase 69 U/L (39-117); Amylase 63 U/L (28-100); Anion Gap 8 (12-20); Aspartate Amino Transferase 27 U/L (5-31); Blood Urea Nitrogen 10 mg/dL (9-16); Calcium 9.2 mg/dL (8.4-10.2); Carbon Dioxide 26 mmol/L (22-29); Chloride 107 mmol/L (96-108); Estimated Glomerular Filt Rate > 60; Lipase 56 U/L (8-78); Potassium 4.0 mmol/L (3.3-5.1); Sodium 137 mmol/L (135-145); Total Protein 7.4 g/dL (6.5-8.0)
== END 2025-05-07 13:18 | disposition home or self-care (01) ==
LOC: HO.HHCL 13:17
PROVIDERS: PCP Nurse Practitioner Primary Care; Visit Provider Family Medicine
DX: R10.13 Epigastric pain (principal); R11.2 Nausea with vomiting, unspecified
CPT/HCPCS: 36415; 80048; 80076; 82150; 83690; 85025

== ENCOUNTER 2025-05-07 14:40 | Emergency (ER) | payer MEDICAID, SELFPAY ==
--- NOTE | ~2025-05-07 | CT_ITS ---
CLINICAL HISTORY: abd pain CT abdomen and pelvis with contrast Comparison: CT of the abdomen and pelvis from 04/27/2025 Findings: Left implant partially imaged nonenlarged are unremarkable for CT. Mild bibasilar atelectasis and motion artifacts. Trace pericardial effusion. Mild biliary ductal dilatation periportal edema redemonstrated. Gallbladder is absent. Pancreas, adrenal glands, and spleen appear unchanged. No hydronephrosis. No significant change in small cystic lesions in the kidney is by CT. Small mesenteric and periaortic lymph nodes are nonspecific and likely reactive. No small bowel obstruction. Fluid in the cecum can be seen with diarrhea type illnesses and mild colitis. Otherwise severe stool burden present. Imaged appendix within normal limits (image 51 of series 7). Uterus is diminutive or absent. No adnexal soft tissue mass by CT. Mild-moderate wall thickening of the urinary bladder is nonspecific. Mild fluid in the pelvis is nonspecific. No walled-off abscess or free intraperitoneal air. Subcutaneous gas likely from additional injections of the left anterior abdominal wall. No significant change in fat, scarring, and/or adipose change of the anterior abdominal wall. Degenerative changes of the hips, SI joints, and spine, including lower lumbar facet arthropathy. IMPRESSION: 1. Fluid in the cecum can be seen with diarrhea type illnesses and mild colitis. Otherwise severe stool burden present. 2. No small bowel obstruction. 3. Mild wall thickening of the urinary bladder. This document has been electronically signed by: Jacques Nolan MD on 05/07/2025 23:30:32
--- NOTE | 2025-05-07 15:03 | ED.ABDPAIN ---
HPI - Abdominal Pain General Chief Complaint: Abdominal Pain Stated Complaint: abd pain Time Seen by Provider: 05/07/25 19:28 History of Present Illness HPI narrative: Patient is a 44-year-old female with a history of epigastric left-sided abdominal pain history of pancreatitis history of epiploic appendagitis history of fibromyalgia status post cholecystectomy was just admitted to the hospital at the beginning of May 01 elevated transaminase elevated lipase question pancreatitis question cholangitis question common duct stone had an MRCP done which was negative. Patient went home and started having increasing abdominal pain. There is no fever no chills. The pain is diffuse. Associated with nausea vomiting morning. Patient came back to the ED for further evaluation. No cough no congestion upper respiratory symptoms. Does not think she is . She is from home. She had abdominal plasty done in the past it was in 2020 in [place]. Related Data Home Medications ?Medication ?Instructions ?Recorded ?Confirmed rosuvastatin 40 mg tablet 40 mg PO BEDTIME 05/09/24 04/27/25 Held on 04/30/25. Instructions: Resume on 05/05/25. meloxicam 15 mg tablet 15 mg PO DAILY 01/10/25 04/27/25 acetaminophen 500 mg tablet 500 mg PO Q6H PRN fever or pain 04/27/25 04/27/25 (Tylenol Extra Strength) albuterol sulfate 2.5 mg/3 mL 2.5 mg Q8H PRN wheezing 04/27/25 04/27/25 (0.083 %) solution for nebulization famotidine 40 mg tablet 40 mg PO BEDTIME 04/27/25 04/27/25 fluoxetine 40 mg capsule 40 mg PO DAILY 04/27/25 04/27/25 fluticasone propionate 50 1 spray intranasal DAILY PRN 04/27/25 04/27/25 mcg/actuation nasal Allergy Symptoms spray,suspension methocarbamol 750 mg tablet 750 mg PO Q6H PRN Muscle Spasm 04/27/25 04/27/25 omega-3 acid ethyl esters 1 gram 1 cap PO BID 04/27/25 04/27/25 capsule rabeprazole 20 mg tablet,delayed 20 mg PO DAILY 04/27/25 04/27/25 release tirzepatide (weight loss) 7.5 7.5 mg subcut TU@0900 04/27/25 04/27/25 mg/0.5 mL subcutaneous pen injector (Zepbound) Previous Rx's ?Medication ?Instructions ?Recorded albuterol sulfate 90 mcg/actuation 1 puff inhalation QID PRN 02/05/25 aerosol inhaler shortness of breath or wheezing #6.7 grams inhalational spacing device #1 ea 02/05/25 polyethylene glycol 3350 17 17 g PO DAILY #119 grams 05/08/25 gram/dose oral powder (Miralax) Allergies Allergy/AdvReac Type Severity Reaction Status Date / Time No Known Allergies Allergy Verified 05/07/25 15:05 Review of Systems Review of Systems Positive abdominal pain Yes all other systems are reviewed and are negative [facility] Past Medical History Attestation statement: The following information was validated with the patient. Medical History Abdominal pain Transaminitis Chronic pain syndrome Fibromyalgia Hyperlipidemia Anxiety History of umbilical hernia Surgical History History of excision of mass History of cholecystectomy History of breast augmentation History of bilateral breast reduction surgery History of abdominoplasty Family History Family History Mother Colon cancer Other Asthma Social History Social History Household Members: Spouse and Children Housing: House Do you presently have visiting nurse or other home services: No Alcohol intake: never Patient Tobacco Use Status: Never used Tobacco Smoked in Last 30 Days: No Use of substances other than those prescribed or required for medical reasons: No Advance Directives: No Advance Directives Information Provided: No Do you have a plan to hurt others: No Plan service: No Physical Exam ED Vital Signs: Vital Signs - 24 hr 05/07/25 15:04 05/07/25 21:33 05/07/25 23:35 Temperature 96.4 F L 98.3 F 97.9 F Pulse Rate 74 68 67 Respiratory Rate 16 16 16 Blood Pressure 111/73 121/76 102/65 Pulse Oximetry 98 98 95 Oxygen Delivery Method Room Air Room Air Room Air BMI result Body Mass Index 31.4 Appearance: Alert. Oriented X3. No acute distress. Eyes: Pupils equal, round and reactive to light. ENT: Pharynx normal. Neck: Normal inspection. Neck supple. No lymph nodes noted. No crepitus CVS: Normal heart rate and rhythm. Pulses normal. Normal S1 and S2 Respiratory: No respiratory distress. Breath sounds normal. No Wheezing. No rales Abdomen: Mild left-sided abdominal pain no rebound or guarding Skin: Skin warm and dry. Normal skin color. Normal skin turgor. Extremities: No lower extremity edema. Neurovascular intact to all extremities. No Lacerations. No Rash Neuro: Oriented X 3. No motor deficit. No sensory deficit. Moving all extermities. No slurred speech Course Course Course Narrative: This is an RME: Additional HPI, ROS, PE not included below will be deferred to primary provider. RME assessment and note performed by: Shelly Brantley PA-C 44-year-old italian speaking female with medical history of fibromyalgia, HLD, anxiety, renal calculi, presents to the ED with concerns for RUQ pain, nausea, vomiting. Pain worsens after eating. Vomited this AM. Had MRCP which was normal on 04/28. Dr Garrison saw patient on 04/29 which revealed that she may have passed a CBD stone or sludge, ERCP was not indicated at that time. Plan: Labs, UA, EKG, further Er eval needed Medical Decision Making Medical Decision Making [facility] Narrative: Patient 44 years old presented today with having epigastric pain. Left-sided abdominal pain. Patient had a cholecystectomy done in the past. Had an MRCP done recently. Her white count is normal. Her electrolytes show a normal LFT and normal lipase. There is no evidence for biliary disease. Patient's test was negative. There is no evidence for related issue. Urine showed no signs of infection. CT scan of the abdomen pelvis was done. I reviewed radiology's reading which showed lots of stool with some evidence of diarrhea type illness. Currently in stable condition. Will discharge patient home. Will give a course of MiraLax. Follow-up on an outpatient basis. Differential Diagnosis Differential Diagnoses: The differential diagnosis associated with the presentation includes Obstruction, kidney stone, diverticulitis Admission/Observation Consideration of admission/observation: Escalation of care including admission/observation considered Lab Data [facility] Lab Attestation statement: I reviewed the patient's lab results. 05/07/25 15:42 05/07/25 15:42 Labs: Lab Results 05/07/25 05/07/25 Range/Units 15:42 20:38 WBC 8.1 (4.8-10.8) X10*3/uL RBC 4.06 L (4.20-5.50) X10*6/uL Hgb 11.5 L (12.0-16.0) g/dl Hct 35.7 L (37.0-47.0) % MCV 87.9 (80.0-98.0) fL MCH 28.3 (27.0-33.0) pg MCHC 32.2 (31.0-35.0) g/dl RDW 13.4 (11.0-16.0) % Plt Count 301 (160-400) X10*3/uL MPV 10.5 (9.4-12.3) fL Immature Gran % (Auto) 0.2 (0.0-0.4) % Neut % (Auto) 63.2 (45-73) % Lymph % (Auto) 24.8 (20-40) % [place] % (Auto) 9.1 (2-11) % Eos % (Auto) 2.1 (0-4) % Baso % (Auto) 0.6 (0-2) % Lymph # (Auto) 2.0 (1.2-4.9) X10*3/uL [place] # (Auto) 0.7 (0.1-1.2) X10*3/uL Eos # (Auto) 0.2 (0.0-0.4) X10*3/uL Baso # (Auto) 0.1 (0.0-0.2) X10*3/uL Abs Immat Gran (auto) 0.02 (0.00-0.03) X10*3/uL Absolute Neuts (auto) 5.1 (2.0-8.3) x10*3/uL Absolute Nucleated RBC 0.000 (0.0-0.012) X10*3/uL Nucleated RBC % (auto) 0.0 (0.0-0.2) /100WBC Sodium 139 (135-145) mmol/L Potassium 3.9 (3.3-5.1) mmol/L Chloride 105 (96-108) mmol/L Carbon Dioxide 28 (22-29) mmol/L Anion Gap 10 L (12-20) BUN 9 (9-16) mg/dL Creatinine 0.62 (0.5-1.4) mg/dL Estim Creat Clear Calc 109.6 Estimated GFR > 60 Random Glucose 83 (60-115) mg/dL Calcium 8.9 (8.4-10.2) mg/dL Magnesium 2.0 (1.6-2.6) mg/dL Total Bilirubin 0.8 (0.0-1.0) mg/dL Direct Bilirubin 0.2 (0.0-0.5) mg/dL AST 26 (5-31) U/L ALT 34 H (0-31) U/L Alkaline Phosphatase 64 (39-117) U/L Troponin I High Sens < 2.7 (<3.5-17.0) ng/L Total Protein 7.0 (6.5-8.0) g/dL Albumin 4.1 (3.5-5.0) g/dL Lipase 87 H (8-78) U/L Beta HCG, Quant < 2 mIU/mL Urine Color Yellow Urine Appearance Clear Urine pH 6.0 (5.0-9.0) Ur Specific [place] 1.015 (1.005-1.025) Urine Protein Negative (Neg-Trace) mg/dL Urine Glucose (UA) Negative (Negative) mg/dL Urine Ketones Negative (Negative) mg/dL Urine Blood Negative (Negative) Urine Nitrite Negative (Negative) Ur Leukocyte Esterase Negative (Negative) Urine RBC 0-2 (0-2) /HPF Urine WBC 0-5 (0-5) /HPF Ur Squamous Epith Cells 6-10 (0-2) /HPF Urine Bacteria None Seen (None Seen) Hyaline Casts 0-2 (0-2) /LPF Independent Interpretation I performed an independent interpretation of an: CT Scan (No overt obstruction) Radiology Impression Discussion of test interpretation with radiology: I have reviewed the radiologist's reading. External Record Review External record reviewed: Inpatient record Chronic Conditions History of abdominal pain history of abdominal plasty 3 years ago Social Determinants Patient?s care significantly limited by Social Determinants of Health including: Problems related to primary support group Medications Administered Discontinued Medications Generic Name Dose Route Start Last Admin Trade Name Freq PRN Reason Stop Dose Admin Hydromorphone HCl 0.5 mg 05/07/25 20:12 05/07/25 21:11 Hydromorphone Hcl 0.5 Mg/0.5 Ml Syringe IVPUSH 05/07/25 20:13 0.5 mg ONCE ONE Administration Protocol Hydromorphone HCl 0.5 mg 05/07/25 23:25 05/07/25 23:33 Hydromorphone Hcl 0.5 Mg/0.5 Ml Syringe IVPUSH 05/07/25 23:26 0.5 mg ONCE ONE Administration Protocol Sodium Chloride 1,000 mls @ 999 mls/hr 05/07/25 20:15 05/07/25 22:12 Ns IV 05/07/25 21:15 Infused .Q1H1M BALDEV Infusion Iohexol 85 ml 05/07/25 22:26 05/07/25 22:26 Iohexol 350 Mg/Ml 100 Ml Infus..Btl IV 05/07/25 22:27 85 ml ONCE ONE Administration Ondansetron HCl 4 mg 05/07/25 20:12 05/07/25 21:11 Ondansetron Hcl 4 Mg/2 Ml Vial IVPUSH 05/07/25 20:13 4 mg ONCE ONE Administration Discharge Plan Discharge Clinical Impression: Constipation, Abdominal pain Patient Disposition: Home, Self-Care Instructions: Constipation (DC) Prescriptions: New polyethylene glycol 3350 [Miralax] 17 gram/dose powder 17 g PO DAILY Qty: 119 0RF No Action rosuvastatin 40 mg tablet 40 mg PO BEDTIME meloxicam 15 mg tablet 15 mg PO DAILY albuterol sulfate 90 mcg/actuation HFA aerosol inhaler 1 puff inhalation QID PRN (Reason: shortness of breath or wheezing) Qty: 6.7 1RF (DME) inhalational spacing device Spacer See Rx Instructions .Route Qty: 1 0RF Rx Instructions: As directed fluoxetine 40 mg Capsule 40 mg PO DAILY rabeprazole 20 mg tablet,delayed release (DR/EC) 20 mg PO DAILY albuterol sulfate 2.5 mg /3 mL (0.083 %) solution for nebulization 2.5 mg Q8H PRN (Reason: wheezing) famotidine 40 mg tablet 40 mg PO BEDTIME methocarbamol 750 mg tablet 750 mg PO Q6H PRN (Reason: Muscle Spasm) fluticasone propionate 50 mcg/actuation spray,suspension 1 spray intranasal DAILY PRN (Reason: Allergy Symptoms) omega-3 acid ethyl esters 1 gram capsule 1 cap PO BID Zepbound 7.5 mg/0.5 mL pen injector 7.5 mg subcut TU@0900 acetaminophen [Tylenol Extra Strength] 500 mg tablet 500 mg PO Q6H PRN (Reason: fever or pain) Referrals: Evy Christopher [employer]OP[employer] [Primary Care Provider, Internal Medicine] - 05/12/25 Print Language: Armenian
[2025-05-07 15:04] VITALS: BP 111/73; PULSE 74; RESP 16; TEMP 35.8; O2SAT 98; BMI 31.4
--- NOTE | 2025-05-07 15:07 | ECG_ITS ---
Test Reason : EPIGASTRIC Blood Pressure : */* mmHG Vent. Rate : 72 BPM Atrial Rate : 72 BPM P-R Int : 160 ms QRS Dur : 84 ms QT Int : 402 ms P-R-T Axes : 49 13 -20 degrees QTcB Int : 440 ms Normal sinus rhythm Minimal voltage criteria for LVH, may be normal variant ( R in aVL ) Nonspecific T wave abnormality Abnormal ECG When compared with ECG of 27-Apr-2025 14:58, No significant change was found Referred By: Shelly Brantley Electronically Signed By: Tay Alvarez
[2025-05-07 15:49] LABS: MANUAL DIFF FLAG NO
[2025-05-07 15:55] LABS: Hematocrit 35.7 % (37.0-47.0); Hemoglobin 11.5 g/dl (12.0-16.0); Imm Gran Abs Auto 0.02 X10*3/uL (0.00-0.03); Imm Gran Pct Auto 0.2 % (0.0-0.4); Lymphocytes Absolute Auto 2.0 X10*3/uL (1.2-4.9); Mean Corpuscular HGB Conc 32.2 g/dl (31.0-35.0); Mean Corpuscular Hemoglobin 28.3 pg (27.0-33.0); Mean Corpuscular Volume 87.9 fL (80.0-98.0); NRBC Abs Auto 0.000 X10*3/uL (0.0-0.012); NRBC Pct Auto 0.0 /100WBC (0.0-0.2); Platelet Count 301 X10*3/uL (160-400); Red Blood Count 4.06 X10*6/uL (4.20-5.50); White Blood Count 8.1 X10*3/uL (4.8-10.8)
[2025-05-07 16:06] LABS: Alanine Aminotransferase 34 U/L (0-31); Albumin Level 4.1 g/dL (3.5-5.0); Alkaline Phosphatase 64 U/L (39-117); Anion Gap 10 (12-20); Aspartate Amino Transferase 26 U/L (5-31); Blood Urea Nitrogen 9 mg/dL (9-16); Calcium 8.9 mg/dL (8.4-10.2); Carbon Dioxide 28 mmol/L (22-29); Chloride 105 mmol/L (96-108); Creatinine Clr Calc Pharmacy 109.6; Estimated Glomerular Filt Rate > 60; Lipase 87 U/L (8-78); Magnesium 2.0 mg/dL (1.6-2.6); Potassium 3.9 mmol/L (3.3-5.1); Sodium 139 mmol/L (135-145); Total Protein 7.0 g/dL (6.5-8.0)
[2025-05-07 16:14] LABS: Troponin-I High Sensitivity < 2.7 ng/L (<3.5-17.0)
[2025-05-07 20:44] LABS: Appearance Urine Clear; Glucose Urine UA Negative (Negative); PH 6.0 (5.0-9.0); Specific Gravity - Urine 1.015 (1.005-1.025)
[2025-05-07 21:33] VITALS: BP 121/76; PULSE 68; RESP 16; TEMP 36.8; O2SAT 98
[2025-05-07] MEDS: iohexoL 350 MG/ML 100 ML INFUS..BTL 85 ML IV (22:26)
[2025-05-07 23:35] VITALS: BP 102/65; PULSE 67; RESP 16; TEMP 36.6; O2SAT 95
== END 2025-05-08 01:56 | disposition home or self-care (01) ==
PROVIDERS: Physician Assistant Medical; Emergency Provider Emergency Medicine Emergency Medical Services; PCP Nurse Practitioner Primary Care
DX: K59.00 Constipation, unspecified (principal); R10.9 Unspecified abdominal pain; R10.13 Epigastric pain; Z90.49 Acquired absence of other specified parts of digestive tract; M79.7 Fibromyalgia; R11.2 Nausea with vomiting, unspecified
CPT/HCPCS: 36415; 74177; 80048; 80076; 81001; 83690; 83735; 84484; 84702; 85025; 93005; 96361; 96374; 96375; 96376; 99285; J1171; J2405; Q9967

== ENCOUNTER → 2025-05-07 15:07 | Outpatient (BNV) | payer MEDICAID, SELFPAY | PROVIDERS: Emergency Provider Emergency Medicine Emergency Medical Services; PCP Nurse Practitioner Primary Care; Visit Provider Internal Medicine Cardiovascular Disease | DX: R94.31 Abnormal electrocardiogram [ECG] [EKG] (principal); R10.13 Epigastric pain | CPT/HCPCS: 93010 ==

== ENCOUNTER → 2025-05-07 20:11 | Outpatient (BNV) | payer MEDICAID, SELFPAY | PROVIDERS: Emergency Provider Emergency Medicine Emergency Medical Services; PCP Nurse Practitioner Primary Care; Visit Provider Radiology Neuroradiology | DX: R10.9 Unspecified abdominal pain (principal) | CPT/HCPCS: 74177 ==

== ENCOUNTER 2025-07-24 10:41 | Emergency (ER) | payer MEDICAID, SELFPAY ==
--- NOTE | ~2025-07-24 | US_ITS ---
EXAMINATION: US KIDNEY RIGHT HISTORY: Right flank pain rule out hydronephrosis, TECHNIQUE: Real-time grayscale ultrasound imaging of the right kidney was performed and images were reviewed. COMPARISON: Comparison is made with the prior examination dated 04/27/2025. FINDINGS: The right kidney measures 10.7 x 5.8 x 6.2 cm. Renal parenchymal echotexture and thickness are normal. There are no masses. There is a 3 mm nonobstructing calculus in the interpolar region. There is an extrarenal pelvis. No hydronephrosis. US/US renal RT IMPRESSION: 3 mm nonobstructing right renal calculus. No hydronephrosis. Electronically signed by: Dev Valle MD 07/24/2025 02:33 PM EDT
[2025-07-24 10:53] VITALS: BP 124/80; PULSE 87; RESP 18; TEMP 36.7; O2SAT 97; BMI 29.1
--- NOTE | 2025-07-24 10:53 | ED.GENADULT ---
HPI - General Adult General Chief complaint: Abdominal Pain Stated complaint: abd pain Time Seen by Provider: 07/24/25 13:18 Source: patient Mode of arrival: ambulatory Limitations: language barrier (Ugandan speaking only, [facility] graffiti cleaner used) History of Present Illness ED Provider: Dr. Kobi Gaona HPI narrative: 44-year-old female with a PMH significant for HLD, fibromyalgia, sciatica, chronic pain syndrome, abdominoplasty in 2020, cholecystectomy, hernia repair 06/30/2025 ([facility]), pancreatitis, kidney stones and anxiety who presents to emergency department for evaluation of right lower and right flank abdominal pain x1 week. Patient states the pain is a constant, pressure-like pain which is 10/10. She states that the pain feels similar to her pancreatitis pain in the past and different from her kidney stone pain. The patient denied fever or chills. She states she has had nausea and vomiting proximally 2 episodes per day. She denied frequency, urgency, dysuria. She has not noted any hematuria. She denied dark black stools or bloody stools. Related Data Home Medications ?Medication ?Instructions ?Recorded ?Confirmed rosuvastatin 40 mg tablet 40 mg PO BEDTIME 05/09/24 04/27/25 Held on 04/30/25. Instructions: Resume on 05/05/25. meloxicam 15 mg tablet 15 mg PO DAILY 01/10/25 04/27/25 acetaminophen 500 mg tablet 500 mg PO Q6H PRN fever or pain 04/27/25 04/27/25 (Tylenol Extra Strength) albuterol sulfate 2.5 mg/3 mL 2.5 mg Q8H PRN wheezing 04/27/25 04/27/25 (0.083 %) solution for nebulization famotidine 40 mg tablet 40 mg PO BEDTIME 04/27/25 04/27/25 fluoxetine 40 mg capsule 40 mg PO DAILY 04/27/25 04/27/25 fluticasone propionate 50 1 spray intranasal DAILY PRN 04/27/25 04/27/25 mcg/actuation nasal Allergy Symptoms spray,suspension methocarbamol 750 mg tablet 750 mg PO Q6H PRN Muscle Spasm 04/27/25 04/27/25 omega-3 acid ethyl esters 1 gram 1 cap PO BID 04/27/25 04/27/25 capsule rabeprazole 20 mg tablet,delayed 20 mg PO DAILY 04/27/25 04/27/25 release tirzepatide (weight loss) 7.5 7.5 mg subcut TU@0900 04/27/25 04/27/25 mg/0.5 mL subcutaneous pen injector (Zepbound) Previous Rx's ?Medication ?Instructions ?Recorded albuterol sulfate 90 mcg/actuation 1 puff inhalation QID PRN 02/05/25 aerosol inhaler shortness of breath or wheezing #6.7 grams inhalational spacing device #1 ea 02/05/25 polyethylene glycol 3350 17 17 g PO DAILY #119 grams 05/08/25 gram/dose oral powder (Miralax) morphine 15 mg immediate release 15 mg PO Q4-6H PRN pain #14 tabs 07/24/25 tablet Allergies Allergy/AdvReac Type Severity Reaction Status Date / Time No Known Allergies Allergy Verified 07/24/25 10:54 Review of Systems Review of Systems: Yes all other systems are reviewed and are negative [facility] Past Medical History [facility] Narrative: Social history: She denies tobacco, alcohol and drug use Medical History Abdominal pain Transaminitis Chronic pain syndrome Fibromyalgia Hyperlipidemia Anxiety History of umbilical hernia Surgical History History of excision of mass History of cholecystectomy History of breast augmentation History of bilateral breast reduction surgery History of abdominoplasty Family History Family History Mother Colon cancer Other Asthma Social History Social History Household Members: Spouse and Children Housing: House Do you presently have visiting nurse or other home services: No Alcohol intake: never Patient Tobacco Use Status: Never used Tobacco Advance Directives: No Advance Directives Information Provided: Yes service: No Physical Exam ED Vital Signs: Vital Signs - 24 hr 07/24/25 10:53 07/24/25 13:55 07/24/25 14:10 Temperature 98.0 F 97.9 F Pulse Rate 87 64 Respiratory Rate 18 18 14 Blood Pressure 124/80 158/87 H Pulse Oximetry 97 99 Oxygen Delivery Method Room Air Room Air BMI result Body Mass Index 29.1 Vital signs were normal Exam: General: Awake, alert in no distress Head: Normocephalic, atraumatic EENT: PERRL, sclera and conjunctiva are normal, mouth with no erythema or exudates Neck: Supple, no adenopathy Lung: breath sounds symmetric, no wheezing, no rales and no rhonchi Chest: symmetric movement, nontender Heart: regular rate and rhythm, normal S1, S2 no murmurs or rubs Abdomen: soft, patient has healing laparoscopy scars with ecchymosis to her abdominal wall, abdomen is not distended, normoactive bowel sounds, she has a diffuse mild tenderness with increased tenderness with palpation in the right lower quadrant. Back: no vertebral tenderness, mild to moderate right CVA tenderness Extremities: no deformities, moves all extremities symmetrically, no edema Neuro: Awake, alert, oriented, normal speech, cranial nerves 2-12 intact, moves all extremities symmetrically Psych: Pleasant, cooperative Course Course Course Narrative: RME, this is a rapid medical exam performed by Matty White please refer to primary provider for complete H&P- 45-year-old female presents for evaluation of upper abdominal pain that radiates to her back. She does report a history of pancreatitis in his feels similar. She is status post cholecystectomy. She denies alcohol consumption. Plan for labs, urinalysis Medications Administered Discontinued Medications Generic Name Dose Route Start Last Admin Trade Name Freq PRN Reason Stop Dose Admin Hydromorphone HCl 1 mg 07/24/25 13:41 07/24/25 13:55 Hydromorphone Hcl 1 Mg/Ml Syringe IVPUSH 07/24/25 13:42 1 mg ONCE STA Administration Protocol Sodium Chloride 1,000 mls @ 999 mls/hr 07/24/25 13:41 07/24/25 13:55 Ns IV 07/24/25 14:41 999 mls/hr .Q1H1M STA Administration Ondansetron HCl 4 mg 07/24/25 13:41 07/24/25 13:55 Ondansetron Hcl 4 Mg/2 Ml Vial IVPUSH 07/24/25 13:42 4 mg ONCE ONE Administration Medical Decision Making Medical Decision Making [facility] Narrative: 44-year-old female with a PMH significant for HLD, fibromyalgia, sciatica, chronic pain syndrome, abdominoplasty in 2020, cholecystectomy, hernia repair 06/30/2025 ([facility]), pancreatitis, kidney stones and anxiety who presents to emergency department for evaluation of right lower and right flank abdominal pain x1 week. Patient states the pain is a constant, pressure-like pain which is 10/10. She states that the pain feels similar to her pancreatitis pain in the past and different from her kidney stone pain. The patient denied fever or chills. She states she has had nausea and vomiting proximally 2 episodes per day. She denied frequency, urgency, dysuria. She has not noted any hematuria. She denied dark black stools or bloody stools. Vital signs were normal. Abdominal exam did reveal evidence for her recent surgery but no abdominal distention, she has diffuse mild tenderness with increased tenderness with palpation of her right side of her abdomen, right CVA tenderness. Differential diagnosis: ?Includes but is not limited to pancreatitis, diverticulitis, renal colic, ureteral stone, bowel obstruction, viral syndrome, anemia, electrolyte abnormalities Course: 13:51 My independent interpretation patient's laboratory evaluation is as follows: CBC was normal. CMP was normal. Lipase was normal. Urinalysis was negative. Microscopic was negative. test was negative. The patient has been seen frequently in the emergency department for abdominal pain in his had multiple CT scans of her abdomen pelvis. Given her negative workup I doubt that she has pancreatitis and I suspect that she may have a right-sided ureteral stone therefore I ordered limited abdominal ultrasound to evaluate her right kidney. Patient was treated with normal saline IV x1 L, Zofran 4 mg IV and Dilaudid 1 mg IV. 15:34 Patient's right abdominal ultrasound did not reveal any evidence for hydronephrosis or hydroureter. Patient got minimal relief of her pain with the 1st dose of Dilaudid therefore she was given a 2nd dose of Dilaudid 1 mg IV. I did discuss the fact that I do not have a clear etiology for the patient's pain. In reviewing her previous ER visits the patient had CTs of the abdomen pelvis on 05/07, 04/27 and 03/25 2025 with 1 study really revealing a 2 mm right proximal ureteral stone. She also had an MRCP on 04/28/2025 which was unremarkable. Patient was advised to take Tylenol for pain and for pain not relieved by Tylenol she was prescribed morphine 15 mg every 6 hours as needed for pain. I did tell her if her symptoms got worse so she developed any new symptoms that are concerning to her she should return to the emergency department for evaluation. Differential Diagnosis Differential Diagnoses: The differential diagnosis associated with the presentation includes (See above) Admission/Observation Consideration of admission/observation: Escalation of care including admission/observation considered (Yes) Lab Data MDM Lab Attestation statement: I reviewed the patient's lab results. 07/24/25 11:09 07/24/25 11:09 Labs: Lab Results 07/24/25 Range/Units 11:09 WBC 7.2 (4.8-10.8) X10*3/uL RBC 4.23 (4.20-5.50) X10*6/uL Hgb 12.0 (12.0-16.0) g/dl Hct 37.3 (37.0-47.0) % MCV 88.2 (80.0-98.0) fL MCH 28.4 (27.0-33.0) pg MCHC 32.2 (31.0-35.0) g/dl RDW 12.4 (11.0-16.0) % Plt Count 292 (160-400) X10*3/uL MPV 10.7 (9.4-12.3) fL Immature Gran % (Auto) 0.1 (0.0-0.4) % Neut % (Auto) 57.4 (45-73) % Lymph % (Auto) 30.3 (20-40) % [place] % (Auto) 9.1 (2-11) % Eos % (Auto) 2.0 (0-4) % Baso % (Auto) 1.1 (0-2) % Lymph # (Auto) 2.2 (1.2-4.9) X10*3/uL [place] # (Auto) 0.7 (0.1-1.2) X10*3/uL Eos # (Auto) 0.1 (0.0-0.4) X10*3/uL Baso # (Auto) 0.1 (0.0-0.2) X10*3/uL Abs Immat Gran (auto) 0.01 (0.00-0.03) X10*3/uL Absolute Neuts (auto) 4.1 (2.0-8.3) x10*3/uL Absolute Nucleated RBC 0.000 (0.0-0.012) X10*3/uL Nucleated RBC % (auto) 0.0 (0.0-0.2) /100WBC Sodium 142 (135-145) mmol/L Potassium 4.5 (3.3-5.1) mmol/L Chloride 110 H (96-108) mmol/L Carbon Dioxide 28 (22-29) mmol/L Anion Gap 9 L (12-20) BUN 9 (9-16) mg/dL Creatinine 0.62 (0.5-1.4) mg/dL Estim Creat Clear Calc 108.4 Estimated GFR > 60 Random Glucose 80 (60-115) mg/dL Calcium 9.5 D (8.4-10.2) mg/dL Total Bilirubin 0.8 (0.0-1.0) mg/dL Direct Bilirubin 0.2 (0.0-0.5) mg/dL AST 19 (5-31) U/L ALT 7 (0-31) U/L Alkaline Phosphatase 64 (39-117) U/L Total Protein 7.4 (6.5-8.0) g/dL Albumin 4.3 (3.5-5.0) g/dL Lipase 48 (8-78) U/L Beta HCG, Quant < 2 mIU/mL Urine Color Yellow Urine Appearance Clear Urine pH 6.0 (5.0-9.0) Ur Specific [place] 1.020 (1.005-1.025) Urine Protein Negative (Neg-Trace) mg/dL Urine Glucose (UA) Negative (Negative) mg/dL Urine Ketones Negative (Negative) mg/dL Urine Blood Negative (Negative) Urine Nitrite Negative (Negative) Ur Leukocyte Esterase Negative (Negative) Urine RBC 0-2 (0-2) /HPF Urine WBC 0-5 (0-5) /HPF Ur Squamous Epith Cells 0-2 (0-2) /HPF Urine Bacteria None Seen (None Seen) Hyaline Casts 0-2 (0-2) /LPF Independent Interpretation I performed an independent interpretation of an: EKG Interpretation: My independent interpretation patient's 12 EKG done on 07/24/2025 at 11:29 hours is as follows: Normal sinus rhythm with a rate of 67, normal OK interval, QRS duration QTC interval, no ST segment elevation, no ST segment depression, inverted T-waves V2 and V3, no PACs, no PVCs. Compared to EKG dated 03/09/2025 at 11:28 hours, inverted T-waves are old and there is no significant change. Radiology Impression Discussion of test interpretation with radiology: I have reviewed the radiologist's reading. Radiologist Impression: US renal RT IMPRESSION: 3 mm nonobstructing right renal calculus. No hydronephrosis. Electronically signed by: Dev Valle MD 07/24/2025 02:33 PM EDT Discharge Plan Discharge Clinical Impression: Abdominal pain, Acute right flank pain Patient Disposition: Home, Self-Care Instructions: Abdominal Pain (ED) Additional Instructions: Your blood work was unremarkable. The ultrasound of your right kidney did not reveal any swelling of the kidney or any swelling of the ureter (tube that connects the kidney to the bladder) This time I do not have a clear cause for your pain. Take Tylenol (acetaminophen) 2 pills every 6 hours as needed for pain. For pain not relieved by Tylenol take morphine 15 mg pills, 1 pill every 6 hours as needed for pain. This medication will make you sleepy, do not drive or work while taking this medication. Morphine is a narcotic medication and can be addicting. If you are concerned about addiction you can ask the pharmacist for less pills or do not get this prescription filled. Follow-up with your doctor in 2 days. Please return to the emergency department if your symptoms get worse or if you develop any symptoms that are concerning to you. Prescriptions: New morphine 15 mg tablet 15 mg PO Q4-6H PRN (Reason: pain) Qty: 14 0RF Rx Instructions: Patient may request partial fill; Partial Fill upon patient request. No Action polyethylene glycol 3350 [Miralax] 17 gram/dose powder 17 g PO DAILY Qty: 119 0RF rosuvastatin 40 mg tablet 40 mg PO BEDTIME meloxicam 15 mg tablet 15 mg PO DAILY albuterol sulfate 90 mcg/actuation HFA aerosol inhaler 1 puff inhalation QID PRN (Reason: shortness of breath or wheezing) Qty: 6.7 1RF (DME) inhalational spacing device Spacer See Rx Instructions .Route Qty: 1 0RF Rx Instructions: As directed fluoxetine 40 mg Capsule 40 mg PO DAILY rabeprazole 20 mg tablet,delayed release (DR/EC) 20 mg PO DAILY albuterol sulfate 2.5 mg /3 mL (0.083 %) solution for nebulization 2.5 mg Q8H PRN (Reason: wheezing) famotidine 40 mg tablet 40 mg PO BEDTIME methocarbamol 750 mg tablet 750 mg PO Q6H PRN (Reason: Muscle Spasm) fluticasone propionate 50 mcg/actuation spray,suspension 1 spray intranasal DAILY PRN (Reason: Allergy Symptoms) omega-3 acid ethyl esters 1 gram capsule 1 cap PO BID Zepbound 7.5 mg/0.5 mL pen injector 7.5 mg subcut TU@0900 acetaminophen [Tylenol Extra Strength] 500 mg tablet 500 mg PO Q6H PRN (Reason: fever or pain) Print Language: Ugandan
[2025-07-24 11:22] LABS: MANUAL DIFF FLAG NO
[2025-07-24 11:23] LABS: Hematocrit 37.3 % (37.0-47.0); Hemoglobin 12.0 g/dl (12.0-16.0); Imm Gran Abs Auto 0.01 X10*3/uL (0.00-0.03); Imm Gran Pct Auto 0.1 % (0.0-0.4); Lymphocytes Absolute Auto 2.2 X10*3/uL (1.2-4.9); Mean Corpuscular HGB Conc 32.2 g/dl (31.0-35.0); Mean Corpuscular Hemoglobin 28.4 pg (27.0-33.0); Mean Corpuscular Volume 88.2 fL (80.0-98.0); NRBC Abs Auto 0.000 X10*3/uL (0.0-0.012); NRBC Pct Auto 0.0 /100WBC (0.0-0.2); Platelet Count 292 X10*3/uL (160-400); Red Blood Count 4.23 X10*6/uL (4.20-5.50); White Blood Count 7.2 X10*3/uL (4.8-10.8)
[2025-07-24 11:24] LABS: Appearance Urine Clear; Glucose Urine UA Negative (Negative); PH 6.0 (5.0-9.0); Specific Gravity - Urine 1.020 (1.005-1.025)
[2025-07-24 11:44] LABS: Alanine Aminotransferase 7 U/L (0-31); Albumin Level 4.3 g/dL (3.5-5.0); Alkaline Phosphatase 64 U/L (39-117); Anion Gap 9 (12-20); Aspartate Amino Transferase 19 U/L (5-31); Blood Urea Nitrogen 9 mg/dL (9-16); Calcium 9.5 mg/dL (8.4-10.2); Carbon Dioxide 28 mmol/L (22-29); Chloride 110 mmol/L (96-108); Creatinine Clr Calc Pharmacy 108.4; Estimated Glomerular Filt Rate > 60; Lipase 48 U/L (8-78); Potassium 4.5 mmol/L (3.3-5.1); Sodium 142 mmol/L (135-145); Total Protein 7.4 g/dL (6.5-8.0)
--- OUTSIDE RECORDS SUMMARY | 2025-07-24 13:12 | XMS_ITS | Encounter Summary ---
Author Organization [employer] Address [address] [facility] 7[address] [place] [address] Care Team Providers Care Executive Director Of Marketing Name Role Phone Eyv Christopher Primary Care Provider Romeo Echavarria RN Unavailable [phone] Romeo Echavarria RN Unavailable [phone] Scar Pimentel RN Unavailable [phone] Tawny Frias Unavailable Reason for Visit * Reason Onset Date Comments Call Back Request 04/23/2024 Encounter Details Date Type Department Care Team (Late st Contact Info) Description 04/23/2024 Telephone [facility] MEDICINE [address] [place], [place] [phone] Evy Christopher ANP [address] [place], [place] [phone] Call Back Request Social History Tobacco Use [...] Care Team (Late st Contact Info) Description 07/27/2025 1:45 PM EDT Office Visit [facility] MEDICINE [address] [place] [address] Chantelle Mitchell FNP [address] [place] [address] 10/02/2025 11:45 AM EST Office Visit [facility] MEDICINE [address] [place] [address] Clarence Anderson MD [address] [place] [address] documented as of this encounter Visit Diagnoses Not on filedocumented in this encounter Additional Health Concerns Assessment Noted Time PHQ-9 Depression Total Score: 13 023 2:43 PM EST documented as of this encounter Care Teams Executive Director Of Marketing Relationship Specialty Start Date End Date Evy Christopher ANP [address] [place] [address] PCP - General Family Medicine 06/20/21 Romeo Echavarria, SUKHWINDER [address] [place] [address] Solidworks DrafterCentral Processing Tech 12/25/24 05/07/25 Romeo Echavarria, SUKHWINDER [address] [place] [address] Registered Nurse Family Medicine 04/28/25 04/28/25 Scar Pimentel, SUKHWINDER [address] [place] [address] Registered Nurse Family Medicine 07/13/25 Tawny Frias 07/13/25 documented as of this encounter
--- OUTSIDE RECORDS SUMMARY | 2025-07-24 13:12 | XMS_ITS | Encounter Summary ---
Author Organization [employer] Address [address] [facility] 7t [place] [address] Care Team Providers Care Adjunct Lecturer Name Role Phone Evy Christopher Primary Care Provider Romeo Echavarria RN Unavailable [phone] Romeo Echavarria RN Unavailable [phone] Scar Pimentel RN Unavailable [phone] Tawny Frias Unavailable Reason for Visit * Reason Onset Date Comments Returning Call 03/14/2024 Encounter Details Date Type Department Care Team (Late st Contact Info) Description 03/14/2024 Telephone [facility] MEDICINE [address] [place], [place] [phone] Evy Christopher ANP [address] [place], [place] [phone] Returning Call Social History Tobacco Use Types [...] from pt stating received a call but casualty underwriter sees nothing tasked. documented in this encounter Plan of Treatment Upcoming Encounters Date Type Department Care Team (Late st Contact Info) Description 07/27/2025 1:45 PM EDT Office Visit [facility] MEDICINE [address] [place] [address] Chantelle Mitchell FNP [address] [place] [address] 10/02/2025 11:45 AM EST Office Visit [facility] MEDICINE [address] [place] [address] Clarence Anderson MD [address] [place] [address] documented as of this encounter Visit Diagnoses Not on filedocumented in this encounter Additional Health Concerns Assessment Noted Time PHQ-9 Depression Total Score: 13 023 2:43 PM EST documented as of this encounter Care Teams Adjunct Lecturer Relationship Specialty Start Date End Date Evy Christopher ANP [address] [place] [address] PCP - General Family Medicine 06/20/21 Romeo Echavarria, RN [address] [place] [address] Hat Forming Machine OperatorEquipment Installer 12/25/24 05/07/25 Romeo Echavarria, SUKHWINDER [address] [place] [address] Registered Nurse Family Medicine 04/28/25 04/28/25 Scar Pimentel, SUKHWINDER [address] [place] [address] Registered Nurse Family Medicine 07/13/25 Tawny Frias 07/13/25 documented as of this encounter
--- OUTSIDE RECORDS SUMMARY | 2025-07-24 13:12 | XMS_ITS | Encounter Summary ---
Author Organization [employer] Address [address] [facility] 7t [place] [address] Care Team Providers Care Reporting Developer Name Role Phone Evy Christopher Primary Care Provider Romeo Echavarria RN Unavailable [phone] Romeo Echavarria RN Unavailable [phone] Scar Pimentel RN Unavailable [phone] Tawny Frias Unavailable Encounter Details Date Type Department Care Team ([facility] Contact Info) Description 12/04/2022 Telephone [facility] MEDICINE [address] [place], [place] [phone] Evy Christopher ANP [address] [place], [place] [phone] Social History Tobacco Use Types Packs/Day Years [...] Upcoming Encounters Date Type Department Care Team ([facility] Contact Info) Description 07/27/2025 1:45 PM EDT Office Visit [facility] MEDICINE [address] [place] [address] Chantelle Mitchell FNP [address] [place] [address] 10/02/2025 11:45 AM EST Office Visit [facility] [address] [place] [address] Clarence Anderson MD [address] [place] [address] documented as of this encounter Visit Diagnoses Not on filedocumented in this encounter Care Teams Reporting Developer Relationship Specialty Start Date End Date Evy Christopher ANP [address] [place] [address] PCP - General Family Medicine 06/20/21 Romeo Echavarria RN [address] [place] [address] Lumber LoaderPlant Operator 12/25/24 05/07/25 Romeo Echavarria RN [address] [facility] [place] [address] Registered Nurse Family Medicine 04/28/25 04/28/25 Scar Pimentel, SUKHWINDER [address] [place] [address] Registered Nurse Family Medicine 07/13/25 Tawny Frias 07/13/25 documented as of this encounter
--- OUTSIDE RECORDS SUMMARY | 2025-07-24 13:12 | XMS_ITS | Encounter Summary ---
Author Organization [employer] Address [address] [facility] 7t [place] [address] Care Team Providers Care Retort Engineer Name Role Phone Evy Christopher Primary Care Provider Romeo Echavarria RN Unavailable [phone] Romeo Echavarria RN Unavailable [phone] Scar Pimentel RN Unavailable [phone] Tawny Frias Unavailable Reason for Visit * Reason Onset Date Comments Nurse Triage 02/20/2025 Encounter Details Date Type Department Care Team (Late st Contact Info) Description 02/20/2025 Telephone [facility] MEDICINE [address] [place], [place] [phone] Evy Christopher ANP [address] [place], [place] [phone] Nurse Triage Social History Tobacco Use Types Packs/Day Years [...] encounter Miscellaneous Notes * Telephone Encounter - Dorys Garcia RN - 02/20/2025 9:38 AM EDT Triage call with [facility] track service worker ID [id number] Pt reports a small lump on inner aspect of right thigh. Pt describes area as size of grain of rice and darker color than surrounding skin. Pt reports it is itchy, tender to touch. Pt is advised to come to [facility] for provider to see. Pt agrees with disposition. [facility] hours given open till 4pm today. Insurance is verified as active. Protocol Used: Skin Lump or Localized Swelling (Adult) Protocol-Based Disposition: See in Office or Video Visit within 3 Days Video visit not offered Positive Triage Questions: * Small swelling or lump present > 1 week * Patient wants to be seen * All higher-acuity triage questions were negative Care Advice Discussed: * Reasons To Call Back - Fever occurs - Spreading redness occurs - Swelling becomes painful - Swelling lasts over 1 week - You become worse * Telephone Encounter - Corrine Jinjesus Blayne - 02/20/2025 8:28 AM EDT Symptom: Leg Swelling - Not From Injury Outcome: Schedule an appointment to be seen within 24 hours Reason: Caller denied all higher acuity questions The caller accepted this outcome. [phone] arabic documented in this encounter Plan of Treatment Upcoming Encounters Date Type Department Care Team (Late st Contact Info) Description 07/27/2025 1:45 PM EDT Office Visit [facility] MEDICINE [address] [place] [address] Chantelle Mitchell FNP [address] [place] [address] 10/02/2025 11:45 AM EST Office Visit [address] [address] Clarence Anderson MD [address] [place] [address] documented as of this encounter Visit Diagnoses Not on filedocumented in this encounter Additional Health Concerns Assessment Noted Time PHQ-9 Depression Total Score: 2 05/23/20 24 9:49 AM EDT documented as of this encounter Care Teams Retort Engineer Relationship Specialty Start Date End Date Evy Christopher ANP [address] [place] [address] PCP - General Family Medicine 06/20/21 Romeo Echavarria RN [address] [place] [address] Motorcycle Engine AssemblerIp Paralegal 12/25/24 05/07/25 Romeo Echavarria RN [address] [place] [address] Registered Nurse Family Medicine 04/28/25 04/28/25 Scar Pimentel RN [address] [place] [address] Registered Nurse Family Medicine 07/13/25 Tawny Frias 07/13/25 documented as of this encounter
--- OUTSIDE RECORDS SUMMARY | 2025-07-24 13:12 | XMS_ITS | Clinical Summary ---
Author Organization [facility] Address [address] [phone] Phone Care Team Providers Care Passport Support Manager Name Role Phone Evy Christopher JORGE A Primary Care Provider [phone] Allergies No known active allergies Medications lidocaine (LIDODERM) 5 % Place 1 patch onto the skin daily. Remove & Discard patch within 12 hours or as directed by 30 patch 12/30/2024 Active Social History Tobacco Use Types Packs/Day Years Used Date Smoking Tobacco: Never Smokeless Tobacco: Never Tobacco Cessation:Counseling Given: Not Answered Alcohol Use Standard Drinks/Week Comments Not Currently 0 (1 standard drink = 0.6 oz pur e alcohol) Education Answer Date Recorded Are you interested in more education? Not on jose luis e 12/30/2024 Are you concerned about learning? Not on file 12/30/2024 No 12/30/2024 No 12/30/2024 Digital Access Answer Date Recorded No 12/30/2024 No 12/30/2024 Reliable internet access at home? Not on file 12/30/2024 Device with a working camera? Not on file Intimate Partner Violence Answer Date R ecorded Are you denied basic needs s uch as food, clothing, or medical care? No 12/30/2024 In the past 12 months have y ou been in a relationship with a person who hurts, threatens, or tries to control you? No 12/30/2024 Are you denied basic needs s uch as food, clothing, or medical care? No 12/30/2024 In the past 12 months have y ou been in a relationship with a person who hurts, threatens, or tries to control you? No 12/30/2024 Comments Unknown Sex and Gender Information Value Date Recorded Sex Assigned at Female 12/30/2024 6:03 PM EST Legal Sex Female 2:59 PM EST Gender Identity Female 12/30/2024 6:03 PM EST Sexual Orientation Don't know 12/30/2024 6: 03 PM EST Last Filed Vital Signs Vital Sign Reading Time Taken Comments Blood Pressure 128/81 12/30/2024 8:22 PM EST Pulse 55 12/30/2024 8:22 PM EST Temperature 36.3 C (97.4 F) 12/30/2024 8:22 PM EST Respiratory Rate 18 12/30/2024 8:22 PM EST Oxygen Saturation 95% 12/30/2024 8:22 PM EST Inhaled Oxygen Concentration - - Weight 83.9 kg (185 lb) 12/30/2024 4:46 PM EST Height 160 cm (5' 3 ) 12/30/2024 4:46 PM EST Body Mass Index 32.77 12/30/2024 4:46 PM EST Plan of Treatment Health Maintenance Due Date Last Done Comments DEPRESSION SCREENING 1990 HEPATITIS C SCREENING 1996 HIV ONE-TIME SCREENING (18-6 5 YEARS) 1996 PAP SMEAR 1999 SMOKING STATUS SCREENING (On ce After 26 Yrs) 2004 Adult Td,Tdap Booster 05/04/2021 05/04/2011 MAMMOGRAM 04/09/2022 04/09/2020, 04/07/2019 COLOGUARD 2023 COLONOSCOPY 2023 COLORECTAL CANCER SCREENING 2023 FIT TEST 2023 FOBT 2023 SIGMOIDOSCOPY 2023 VIRTUAL COLONOSCOPY 2023 INFLUENZA VACCINE (#1) 2025 COVID-19 VACCINE ( - 2023-2 5 season) 2025 SCREENING FOR DIABETES 12/31/2027 12/30/2024 LIPID PANEL 11/12/2029 11/12/2024 PNEUMOCOCCAL VACCINES (0-49 years) Aged Out 09/04/2018, 05/04/2011 No longer eligible based on patient's age to complete this topic HEPATITIS A VACCINES Aged Out No long er eligible based on patient's age to complete this topic HIB VACCINES Aged Out No longer eligi ble based on patient's age to complete this topic MENINGOCOCCAL VACCINES (ACWY) Aged Out No longer eligible based on patient's age to complete this topic MENINGOCOCCAL VACCINES (B) Aged Out N o longer eligible based on patient's age to complete this topic Medical Devices Not on file Insurance C3 ACO C3 ACO C3 ACO C3 ACO C3 ACO Care Teams Passport Support Manager Relationship Specialty Start Date End Date Evy Christopher ANP [address] [place] [id number] PCP - General Nurse Practitioner 12/30/24 Additional Source Comments The information contained in this document represents components of the legal health record. It is not the complete legal health record.[facility]
--- OUTSIDE RECORDS SUMMARY | 2025-07-24 13:13 | XMS_ITS | Encounter Summary ---
Author Organization [employer] Address [address] [facility] [address] [place] [address] Care Team Providers Care Police Captain Name Role Phone Ashwin Evy JULES Primary Care Provider [phone] Romeo Echavarria RN Unavailable [phone] Romeo Echavarria RN Unavailable [phone] Scar Pimentel RN Unavailable [phone] Tawny Frias Unavailable Encounter Details Date Type Department Care Team (Late st Contact Info) Description 03/31/2025 Orders Only [facility] [address] [place] [address] Provider, MD Pearl Social History Tobacco Use [...] Answer Date Recorded Patient Health Questionnaire-9 Score 0 04/02/2025 Patient Health Questionnaire-9 Score 0 04/02/2025 Last PHQ-9: Questionnaire Data Not on file 0 04/02/2025 Housing Stability Answer Date Recorded What is [...] Date Recorded Patient Health Questionnaire-2 Score 0 04/02/2025 Internet Access Answer Date Recorded Internet Access [...] AM EDT documented as of this encounter Functional Status * Over the past 2 weeks, how often have you been bothered by any of the following problems? Question Answer Date of Assessment Author Patient Health Questionnaire -2 Score 0 04/02/2025 11:38 AM EDT Tu Woodall MA * Little interest or pleasure in doing things Answer Date of Assessment Author Not at all 04/02/2025 11:38 AM EDT Tu Woodall MA * Feeling down, depressed, or hopeless Answer Date of Assessment Author Not at all 04/02/2025 11:38 AM EDT Tu Woodall MA * Trouble falling or staying asleep, or sleeping too much Answer Date of Assessment Author Not at all 04/02/2025 11:38 AM EDT Tu Woodall MA * Feeling tired or having little energy Answer Date of Assessment Author Not at all 04/02/2025 11:38 AM EDT Tu Woodall MA * Poor appetite or overeating Answer Date of Assessment Author Not at all 04/02/2025 11:38 AM EDT Tu Woodall MA * Feeling bad about yourself - or that you are a failure or have let yourself or your family down Answer Date of Assessment Author Not at all 04/02/2025 11:38 AM Tu Lee MA * Trouble concentrating on things, such as reading the newspaper or watching television Answer Date of Assessment Author Not at all 04/02/2025 11:38 AM Tu Lee MA * Moving or speaking so slowly that other people could have noticed? Or the opposite - being so fidgety or restless that you have been moving around a lot more than usual. Answer Date of Assessment Author Not at all 04/02/2025 11:38 AM Tu Lee MA * Thoughts that you would be better off or hurting yourself in some way Answer Date of Assessment Author Not at all 04/02/2025 11:38 AM Tu Lee MA * Patient Health Questionnaire-9 Score Answer Date of Assessment Author 0 04/02/2025 11:38 AM Tu Lee MA * Over the last 2 weeks, how often have you been bothered by any of the following problems? Question Answer Date of Assessment Author Feeling nervous, anxious, or on edge 0 04/02/2025 11:38 AM Tu Lee MA Not being able to stop or co ntrol worrying 0 04/02/2025 11:38 AM Tu Lee MA Worrying too much about diff erent things 0 04/02/2025 11:38 AM Tu Lee MA Trouble relaxing 0 04/02/2025 11:38 AM Tu Lee MA Being so restless that it is hard to sit still 0 04/02/2025 11:38 AM Tu Lee MA Becoming easily annoyed or irritable 0 04/02/2025 11:38 AM Tu Lee MA Feeling afraid as if somethi ng awful might happen 0 04/02/2025 11:38 AM Tu Lee MA SHANNA-7 Total Score 0 04/02/2025 11:38 AM Tu Lee MA documented as of this encounter Plan of Treatment Upcoming Encounters Date Type Department Care Team (Late st Contact Info) Description 07/27/2025 1:45 PM EDT Office Visit [address] [address] Chantelle Mitchell FNP [address] [place] [address] 10/02/2025 11:45 AM EST Office Visit [facility] [address] [place] [address] Clarence Anderson MD [address] [place] [address] documented as of this encounter Procedures Procedure Name Priority Date/Time Associated Diagnosis Comments CT ABDOMEN PELVIS WO CONTRAST Routine 03/27/2025 2:57 PM EDT documented in this encounter Results * CT Abdomen Pelvis w/o Contrast (03/27/2025 2:57 PM EDT) Anatomical Region Laterality Modality Body, Pelvis, Abdomen Computed T omography us Historical Provider MD ESPINOZA CT PROCEDURES Final R esult documented in this encounter Visit Diagnoses Not on filedocumented in this encounter Additional Health Concerns Assessment Noted Time PHQ-9 Depression Total Score: 2 05/23/20 24 9:49 AM EDT documented as of this encounter Care Teams Police Captain Relationship Specialty Start Date End Date Evy Christopher ANP [address] [place] [address] PCP - General Family Medicine 06/20/21 Romeo Echavarria RN [address] [place] [address] Dump AttendantRenal Dietitian 12/25/24 05/07/25 Romeo Echavarria RN [address] [place] [address] Registered Nurse Family Medicine 04/28/25 04/28/25 Scar Pimentel, SUKHWINDER [address] [place] [address] [place] [address] Registered Nurse Family Medicine 07/13/25 Tawny Frias 07/13/25 documented as of this encounter
--- OUTSIDE RECORDS SUMMARY | 2025-07-24 13:13 | XMS_ITS | Encounter Summary ---
Author Organization [employer] Address [address] [facility] 7t [place] [address] Care Team Providers Care Lottery Manager Name Role Phone Evy Christopher Primary Care Provider [phone] Scar Pimentel RN Unavailable [phone] Tawny Frias Unavailable Reason for Visit * Reason Onset Date Comments Referral 07/20/2025 Encounter Details Date Type Department Care Team (Late st Contact Info) Description 07/20/2025 Telephone [facility] [address] [place], [place] [phone] Evy Christopher ANP [address] [place], [place] [phone] Referral Social History Tobacco Use Types Packs/Day [...] Answer Date Recorded Internet Access Q1 Yes 05/13/2025 Internet Access Q2 Not on file 05/13/2025 Comments No Sex and Gender Information Value Date Recorded Sex Assigned at Female 08/28/2022 10:14 AM EDT Legal Sex Female 10:14 AM EDT Gender Identity Choose not to disclose 10:14 AM EDT Sexual Orientation Straight 08/28/2022 10 :14 AM EDT documented as of this encounter Miscellaneous Notes * Telephone Encounter - Bre Lee - 07/23/2025 8:26 AM EDT Tc from pt requesting call back regarding prior message Contact pt at [phone] (romanian) * Telephone Encounter - Karlene Jaime RN - 07/21/2025 10:11 AM EDT Telephone call returned to pt, no answer, left voicemail to call back [facility]. * Telephone Encounter - Brian Biswas - 07/20/2025 11:08 AM EDT Tc from pt requesting a referral for Flabbiness in the arms, to get it surgically removed. Any questions contact pt at [phone] documented in this encounter Plan of Treatment Upcoming Encounters Date Type Department Care Team (Late st Contact Info) Description 07/27/2025 1:45 PM EDT Office Visit [address] [address] Chantelle Mitchell FNP [address] [place], [place] [phone] 10/02/2025 11:45 AM EST Office Visit [address] [phone] Clarence Anderson MD [address] [place] [phone] documented as of this encounter Visit Diagnoses Not on filedocumented in this encounter Additional Health Concerns Assessment Noted Time PHQ-9 Depression Total Score: 0 04/02/20 11:38 AM EDT documented as of this encounter Care Teams Lottery Manager Relationship Specialty Start Date End Date Evy Christopher ANP [address] [place] [address] PCP - General Family Medicine 06/20/21 Scar Pimentel, SUKHWINDER [address] [place] [address] Registered Nurse Family Medicine 07/13/25 Tawny Frias 07/13/25 documented as of this encounter
--- OUTSIDE RECORDS SUMMARY | 2025-07-24 13:13 | XMS_ITS | Encounter Summary ---
Author Organization [employer] Address [address] [facility] [address]t [place] [address] Care Team Providers Care Battery Container Tester Aluminum Name Role Phone Evy Christopher JORGE A Primary Care Provider [phone] Romeo Echavarria RN Unavailable [phone] Romeo Echavarria RN Unavailable [phone] Scar Pimentel RN Unavailable [phone] Tawny Frias Unavailable Reason for Visit * Reason Onset Date Comments RCT active request 09/26/2023 Encounter Details Date Type Department Care Team (Late st Contact Info) Description 09/26/2023 Telephone [facility] [address] [place], [place] [phone] Torie Mishra DDS [address] [place] [address] RCT active request Social History Tobacco Use [...] Miscellaneous Notes * Telephone Encounter - Yessica Gale - 09/26/2023 1:13 PM EST Ptient states [...] Description 07/27/2025 1:45 PM EDT Office Visit [facility] [address] [place] [address] Chantelle Mitchell FNP [address] [place] [address] 10/02/2025 11:45 AM EST Office Visit [facility] [address] [place] [address] Clarence Anderson MD [address] [place] [address] documented as of this encounter Visit Diagnoses Not on filedocumented in this encounter Additional Health Concerns Assessment Noted Time PHQ-9 Depression Total Score: 13 023 2:43 PM EST documented as of this encounter Care Teams Battery Container Tester Aluminum Relationship Specialty Start Date End Date Evy Christopher ANP [address] [place] [address] PCP - General Family Medicine 06/20/21 Romeo Echavarria, RN [address] [place] [address] Seed Cone PickerPick Up Attendant 12/25/24 05/07/25 Romeo Echavarria, RN [address] [place] [address] Registered Nurse Family Medicine 04/28/25 04/28/25 Scar Pimentel, SUKHWINDER [address] [place] [address] Registered Nurse Family Medicine 07/13/25 Tawny Frias 07/13/25 documented as of this encounter
--- OUTSIDE RECORDS SUMMARY | 2025-07-24 13:13 | XMS_ITS | Encounter Summary ---
Author Organization [employer] Address [address] [facility] 7t [place] [address] Care Team Providers Care Information Clerk Cashier Name Role Phone Christopher Evy JULES Primary Care Provider [phone] Scar Pimentel RN Unavailable [phone] Tawny Frias Unavailable Encounter Details Date Type Department Care Team (Late st Contact Info) Description 05/28/2025 Orders Only [facility] [address] [place] [address] ProviderPearl MD Social History Tobacco Use Types Packs/Day Years [...] Description 07/27/2025 1:45 PM EDT Office Visit [facility] [address] [place] [address] Chantelle Mitchell FNP [address] [place] [phone] 10/02/2025 11:45 AM EST Office Visit [address] [address] Clarence Anderson MD [address] [place] [address] documented as of this encounter Procedures Procedure Name Priority Date/Time Associated Diagnosis Comments CT ABDOMEN PELVIS W CONTRAST Routine 05/27/2025 10:48 AM EDT documented in this encounter Results * CT Abdomen Pelvis w/ Contrast (05/27/2025 10:48 AM EDT) Anatomical Region Laterality Modality Body, Pelvis, Abdomen Computed T omography us Historical Provider MD ESPINOZA CT PROCEDURES Final R esult documented in this encounter Visit Diagnoses Not on filedocumented in this encounter Additional Health Concerns Assessment Noted Time PHQ-9 Depression Total Score: 0 04/02/20 25 11:38 AM EDT documented as of this encounter Care Teams Information Clerk Cashier Relationship Specialty Start Date End Date Evy Christopher ANP [address] [place] [address] PCP - General Family Medicine 06/20/21 Scar Pimentel RN [address] [place] [address] Registered Nurse Family Medicine 07/13/25 Tawny Frias 07/13/25 documented as of this encounter
--- OUTSIDE RECORDS SUMMARY | 2025-07-24 13:13 | XMS_ITS | Encounter Summary ---
Author Organization [employer] Address [address] [facility] [address] [place] [address] Care Team Providers Care Senior Mechanical Technician Name Role Phone Ashwin Evy JULES Primary Care Provider [phone] Scar Pimentel RN Unavailable [phone] Tawny Frias Unavailable Encounter Details Date Type Department Care Team (Late st Contact Info) Description 07/24/2025 Orders Only GENERIC EXTERNAL DATA DEPARTMENT Provider, Generic External Data Social History Tobacco Use Types Packs/Day Years [...] Description 07/27/2025 1:45 PM EDT Office Visit [facility] [address] [place] [phone] Chantelle Mitchell FNP [address] [place] [phone] 10/02/2025 11:45 AM EST Office Visit [address] [address] Clarence Anderson MD [address] [place] [address] documented as of this encounter Procedures Procedure Name Priority Date/Time Associated Diagnosis Comments URINALYSIS, COMPLETE, WITH REFLEX TO CULTURE Routine 07/24/2025 11:09 AM EDT CBC WITH AUTO DIFFERENTIAL Routine 07/24/2025 11:09 AM EDT HCG, TOTAL, QN Routine 07/24/2025 11:09 AM EDT LIPASE Routine 07/24/2025 11:09 AM EDT HEPATIC FUNCTION PANEL Routine 07/24/2025 11:09 AM EDT BASIC METABOLIC PANEL Routine 07/24/2025 11:09 AM EDT documented in this encounter Results * hCG, Total, Quantitative (07/24/2025 11:09 AM EDT) HCG Quantitative <2 mIU/mL [facility] Comment:Weeks post LMP Appro ximate hCG(Last Menstrual Period) Range (mIU/ml)3 - 4 weeks 9 - 1304 - 5 weeks 75 - 2,6005 - 6 weeks 850 - 20,8006 - 7 weeks 4000 - 100,2007 - 12 weeks 11,500 - 289,68006 - 16 weeks 18,300 - 137,22233 - 29 weeks (2nd trimester) 1,400 - 53,96580 - 41 weeks (3rd trimester) 940 - 60,000The [place] B- hCG assay is used for the early detection ofpregnancy; it cannot be used to diagnose any conditionunrelated to . If a B-hCG level is not supportedby the clinical evidence, results should be confirmed by analternative method (qualitative urine hCG, for example). 07/24/2025 11:0 9 AM EDT 07/24/2025 11:19 AM EDT us Generic External Data Provider LAB BLOOD ORDERAB LES Final Result Performing Organization Address [facility] Co de Phone Number [facility] [address] [place] [phone] * Lipase (07/24/2025 11:09 AM EDT) Lipase 48 8 - 78 U/L [facility] 07/24/2025 11:0 9 AM EDT 07/24/2025 11:19 AM EDT Generic External Data Provider LAB BLOOD ORDERAB LES Final Result Performing Organization Address [facility] Co de Phone Number [facility] [address] [place] [phone] * (ABNORMAL) Basic Metabolic Panel (07/24/2025 11:09 AM EDT) Sodium 142 135 - 145 mmol/L [facility] Potassium 4.5 3.3 - 5.1 mmol/L [facility] Chloride 110(H) 96 - 108 mmol/L [facility] Carbon Dioxide 28 22 - 29 mmol/L [facility] Anion Gap 9(L) 12 - 20 [facility] Urea Nitrogen (BUN) 9 9 - 16 mg/dL [facility] Creatinine, Serum 0.62 0.5 - 1.4 mg/dL [facility] Creatinine Clr Calc Pharmacy 108.4 [facility] Comment:Provided height and weight: 160.02 cm,74.48 kg.eGFR (calculated from the MDRD study equation) and eCrCl(calculated from the Cockcroft-Gault equation) are based ondifferent parameters and may not yield comparable results.If eCrCl result is absurd, please check patient'sheight/weight. Estimated Glomerular Filt Rate >60 [facility] Comment:Chronic Kidney Disea se: Estimated GFR < 60 mL/min/1.24u4Nrtrut Kidney Disease: Estimated GFR < 15 mL/min/1.73m2 Glucose 80 60 - 115 mg/dL [facility] Calcium 9.5 8.4 - 10.2 mg/dL [facility] 07/24/2025 11:0 9 AM EDT 07/24/2025 11:19 AM EDT us Generic External Data Provider LAB BLOOD ORDERAB LES Final Result [facility] [address] [place] [phone] * Hepatic Function Panel (07/24/2025 11:09 AM EDT) Bilirubin, Total 0.8 0.0 - 1.0 mg/dL [facility] Bilirubin, Direct 0.2 0.0 - 0.5 mg/dL [facility] Aspartate Amino Transferase 19 5 - 31 U/L [facility] Alanine Aminotransferase 7 0 - 31 U/L [facility] Total Protein 7.4 6.5 - 8.0 g/dL [facility] Albumin Level 4.3 3.5 - 5.0 g/dL [facility] Alkaline Phosphatase 64 39 - 117 U/L [facility] 07/24/2025 11:0 9 AM EDT 07/24/2025 11:19 AM EDT us Generic External Data Provider LAB BLOOD ORDERAB LES Final Result [facility] [address] [place] [phone] * Urinalysis, Complete, with Reflex to Culture (07/24/2025 11:09 AM EDT) Color Urine Yellow [facility] Appearance Urine Clear [facility] PH 6.0 5.0 - 9.0 [facility] Glucose Urine UA Negative Negative mg/dL [facility] Urine Blood Negative Negative [facility] Specific [place] - Urine 1.020 1.005 - 1.025 [facility] Urine Protein Negative Neg-Trace mg/dL [facility] Urine Ketones Negative Negative mg/dL [facility] Nitrite Urine Negative Negative [facility] Leukocyte Esterase Urine Negative Negative [facility] RBC Urine 0-2 0 - 2 /HPF [facility] Urine WBC 0-5 0 - 5 /HPF [facility] Urine Squamous Epithelial Cell 0-2 0 - 2 /HPF [facility] Urine Bacteria None Seen None Seen [facility] Hyaline Casts, Urine 0-2 0 - 2 /LPF [facility] 07/24/2025 11:0 9 AM EDT 07/24/2025 11:19 AM EDT Narrative [facility] - 07/24/2025 11:26 AM EDT Urine, Clean Catch us Generic External Data Provider LAB URINE ORDERAB LES Final Result [facility] [address] [place] [phone] * CBC auto differential (07/24/2025 11:09 AM EDT) White Blood Count 7.2 4.8 - 10.8 X10*3/uL [facility] Red Blood Count 4.23 4.20 - 5.50 X10*6/uL [facility] Hemoglobin 12.0 12.0 - 16.0 g/dl [facility] Hematocrit 37.3 37.0 - 47.0 % [facility] Mean Corpuscular Volume 88.2 80.0 - 98.0 fL [facility] Mean Corpuscular Hemoglobin 28.4 27.0 - 33.0 pg [facility] Mean Corpuscular HGB Conc 32.2 31.0 - 35.0 g/dl [facility] Red Cell Distribution Width 12.4 11.0 - 16.0 % [facility] Platelet Count 292 160 - 400 X10*3/uL [facility] Mean Platelet Volume 10.7 9.4 - 12.3 fL [facility] Neutrophils Percent Auto 57.4 45 - 73 % [facility] Imm Gran Pct Auto 0.1 0.0 - 0.4 % [facility] Lymphocytes Percent Auto 30.3 20 - 40 % [facility] Monocytes Percent Auto 9.1 2 - 11 % [facility] Eosinophils Percent Auto 2.0 0 - 4 % [facility] Basophils Percent Auto 1.1 0 - 2 % [facility] NRBC Pct Auto 0.0 0.0 - 0.2 /100WBC [facility] Neutrophils Absolute Auto 4.1 2.0 - 8.3 x10*3/uL [facility] Imm Gran Abs Auto 0.01 0.00 - 0.03 X10*3/uL [facility] Lymphocytes Absolute Auto 2.2 1.2 - 4.9 X10*3/uL [facility] Monocytes Absolute Auto 0.7 0.1 - 1.2 X10*3/uL [facility] Eosinophils Absolute Auto 0.1 0.0 - 0.4 X10*3/uL [facility] Basophils Absolute Auto 0.1 0.0 - 0.2 X10*3/uL [facility] NRBC Abs Auto 0.000 0.0 - 0.012 X10*3/uL [facility] 07/24/2025 11:0 9 AM EDT 07/24/2025 11:19 AM EDT us Generic External Data Provider LAB BLOOD ORDERAB LES Final Result [facility] [address] [place] [phone] documented in this encounter Visit Diagnoses Not on filedocumented in this encounter Additional Health Concerns Assessment Noted Time PHQ-9 Depression Total Score: 0 04/02/20 25 11:38 AM EDT documented as of this encounter Care Teams Senior Mechanical Technician Relationship Specialty Start Date End Date Evy Christopher ANP [address] [place] [address] PCP - General Family Medicine 06/20/21 Scar Pimentel RN [address] [place] [phone] Registered Nurse Family Medicine 07/13/25 Tawny Frias 07/13/25 documented as of this encounter
--- OUTSIDE RECORDS SUMMARY | 2025-07-24 13:13 | XMS_ITS | Clinical Summary ---
Author Organization [employer] Address [address] [facility] [address] [place] [address] Care Team Providers Care Cost Estimator Name Role Phone Trevor Medina JORGE A Primary Care Provider [phone] Scar Pimentel RN Unavailable Tawny Frias Unavailable Allergies Active Allergy Reactions Criticality Noted Date Comments Gramineae Pollens 05/09/2024 Other Reaction(s): Unknown Medications * This document contains information received from the source organization and may not represent a complete record from that organization. Blood Glucose Monitoring Suppl (FreeStyle Lite) w/Device kit 2 Active loratadine (Claritin) 10 MG tablet Take 1 tablet (10 mg) by mouth if needed each day for allergies. 90 tablet 3 Active polyethylene glycol, PEG, 3350 (Glycolax) 17 GM/SCOOP powderIndication s:Constipation, unspecified constipation type 1 scoop (17g) as needed 1-2 times daily for constipation. Mix with 8oz water, juice, soda, coffee, or tea 510 g 1 3 Active EPINEPHrine (Epipen) 0.3 MG/0.3ML injection syringe Inject 0.3 mL (0.3 mg) as directed 1 (one) time if needed for anaphylaxis for up to 2 doses. Inject into upper leg. Call 911 after use. 2 each 4 Active glucose blood (FREESTYLE LITE) test stripIndications :Prediabetes USE TO CHECK FASTING SUGAR IN THE MORNING OR NEEDED FOR SYMPTOMS 100 strip 11 4 Active FreeStyle lancetsIndicatio ns:Prediabetes 1 each by Other route if needed each day (blood sugar). 100 each 2 5 Active Alcohol Swabs (B-D SINGLE USE SWABS REGULAR) padsIndications: Prediabetes USE DIRECTED WHEN TESTING BLOOD SUGAR EVERY MORNING 100 each 11 5 Active fluticasone (Flonase) 50 MCG/ACT nasal sprayIndications :Nasal congestion 1-2 sprays per nostril as needed up to BID. Shake gently. Before first use, prime pump. After use, clean tip and replace cap. 48 g 5 Active albuterol (2.5 MG/3ML) 0.083% nebulizer solutionIndicati ons:Moderate persistent asthma with exacerbation Take 3 mL by nebulization every 8 (eight) hours if needed for wheezing or shortness of breath. 75 mL 3 5 Active albuterol 108 (90 Base) MCG/ACT inhalerIndicatio ns:Moderate persistent asthma with exacerbation Inhale 2 puffs every 4 (four) hours if needed for wheezing. 18 g 3 5 Active tiZANidine (Zanaflex) 2 MG tablet Take 2 tablets (4 mg) by mouth every 8 (eight) hours if needed for muscle spasms for up to 10 days. 40 tablet 5 Active FLUoxetine (PROzac) 40 MG capsuleIndicatio ns:SHANNA (generalized anxiety disorder) Take 1 capsule (40 mg) by mouth Once per day. 90 capsule 1 5 Active acetaminophen (Tylenol Extra Strength) 500 MG tablet Take 1-2 tabs as needed up to TID for pain, no more than 6 tabs per day 120 tablet 5 Active omega-3 acid ethyl esters (Lovaza) 1 g capsule Take 1 capsule by mouth 2 times daily. 5 Active Zepbound 7.5 MG/0.5ML solution auto-injector Inject 7.5 mg under the skin 1 (one) time per week. 5 Active pantoprazole (ProtoNix) 40 MG EC tablet 5 Active famotidine (Pepcid) 40 MG tablet Take 1 tablet (40 mg) by mouth at bedtime. 90 tablet 1 5 Active ondansetron (Zofran) 4 MG tablet 1-2 tab po TID prn nasuea/vomiting 30 tablet 1 5 Active ibuprofen 400 MG tabletIndication s:Pain of both breasts Take 1 tablet (400 mg) by mouth every 6 (six) hours if needed for moderate pain or fever for up to 30 doses. 30 tablet 5 Active Active Problems Problem Noted Date Diagnosed Date Chronic pancreatitis 05/06/2025 Assessment & Plan (05/06/2025 12:04 AM EDT): -04/27/2025 Amylase 161, Lipase 362<--38<--113<---21<---177 triglicerides wnl -04/30/25 hb 10.7, AST 105,ALT 110 Total Bilirubin 0.6 Direct Bilirubin 0.2 .alk phos wnl -MRCP 04/28/25 No acute findings. No biliary duct dilatation or choledocholithiasis. - CT abdomen pelvis w IV con 03/2025 Trace free fluid in the pelvis. Incidental findings as described. Otherwise unremarkable contrast-enhanced CT of the abdomen and pelvis. Pt reports chronic epigastric pain ,possibly in part from GERD but described recent abd pain possibly from pancreatitis w chronic elevated lipase noted since last year Pt does not have GB anymore w cholecystectomy 5 y ago,denies ETOH intake and images not showing CBD dilation so unclear to me if actually passing stones that are causing transitory elevated LFTS and lipase elevation? Pt is using Zepbound prescribed by her weight management sp using for last 3 months which can explain worsening of lipase elevation but will not explain previous elevation of lipase for last year -Advised to stop Zepbound -I called today her weight management office -Dr Marcel zimmer informed of findings of lipase and rec to stop med -I called today her [facility] GI office and discussed about chronic elevated lipase to see if this was previously evaluated but seems was not done w GI -request they follow on this and call pt pt f f up apt w chronic episodes of elevated lipase and transaminitis . Pt knows to call them if not hear from office in next days -sent today autoimmune panel to r/o other causes of pancreatitis as autoimmune - will inform pt results -if neg eval may need to consider other causes as Fluoxetine but seems less likely -alarm signs and symptoms discussed w pt in case symptoms again worsen to go to ED -hydration advised -start famotidine HS ,continue zofran PRN -pxed today 10 tab of tramadol in case is needed ,explained tylenol to take sporadically avoid excess for elevated LFTs -will continue to hold for now on statins until reeval chem ,in regards gabapentin pt states she stopped that med and not interested in resuming Gastroenteritis 04/21/2025 Assessment & Plan (04/21/2025 6:54 PM EDT): Advised to hold off on any laxative that she has for constipation if she still taking any at home, patient said that she has not taking laxatives in more than 2 weeks. Advised regarding aggressive hydration with p.o. water, Pedialyte, Gatorade, Crystal light, herbal teas (except chamomile) and chicken broth. She can advance to BRAT as tolerated and I gave her information regarding soft diet. Use Imodium as needed only if diarrhea persists after 2 days, labs are to be done tomorrow and we will call her back as needed with electrolyte supplementation if needed. Patient out of work tomorrow, she should be able to go back to work in 2 days with appropriate diet, otherwise she should reconsult as needed GERD (gastroesophageal reflux disease) Acute flank pain 04/02/2025 Radiculopathy due to disorde r of intervertebral disc of lumbar spine 03/03/2025 Skin lesion of left leg 02/23/2025 Assessment & Plan (02/23/2025 4:26 PM EDT): Refer to dermatology for excisional biopsy Generalized abdominal pain 01/12/2025 Assessment & Plan [...] MG Bilateral sciatica 12/30/2024 Assessment & Plan (02/23/2025 4:27 PM EDT): Not improving with PT or epidural injections and did not tolerate spinal stimulation. Order MRI and follow-up with PCP Take meloxicam daily and Tylenol breakthrough pain plus tizanidine as needed Apply heat to affected area and continue stretching exercises Declined any referral to pain clinic or our chronic pain clinic or acupuncture clinic Advised regarding weight reduction and gentle exercise as tolerated. Assessment & Plan (12/30/2024 2:22 PM EST): [...] with PCP Cyclobenzaprine 5mg Q 8hrs (I securities counselor about side effect somnolence, she can [...] AM EST): Pt is in care with sales promotion director, utd on mammogram, pap completed 09/20, GI [...] s/p back injections f w ortho at [facility] Here w 1 week of pain reports only in buttock area , per pt in hip but no pain in lateral aspect concerning x trochanteric bursitis Pain radiates to back of buttock so appears sciatica vs piriformis syndrome -right hip XR today at [facility] is reported as normal -warm compresses [...] pt report UTD on pap, managed by sales promotion director Right ovarian cyst 04/17/2021 Overview (06/23/2024): 06/2023 measuring 3.0 x 2.9 x 2.8 cm Prediabetes 01/22/2019 Overview (09/09/2024): Lab Results Component Value Date HGBA1C 5.7 09/11/2023 HGBA1C 5.2 07/07/2022 HGBA1C 5.2 02/23/2021 Mild persistent asthma without complication 11/29 Hyperlipidemia 12/03/2015 Overview (09/11/2023): Cont rosuvastatin 40mg Assessment & Plan (12/31/2023 10:17 AM EST): Continue rosuvastatin 40 mg, labs completed at [facility] Chronic abdominal pain 12/03/2015 Assessment & [...] Encounters Date Type Department Care Team Description 07/24/[address] [address] Nicky Rodriguez MA CHART PREP 07/24/2025 Orders Only GENERIC EXTERNAL DATA DEPARTMENT Provider, Generic External Data 07/20/2025 Patient Outreach [address] [address] Trevor Medina ANP Care Coordination (CM/CHW outreach) 07/20/[address] [address] Trevor Medina ANP Referral 07/17/2025 9:15 AM EDT Office Visit [address] [address] Trevor Medina ANP Hyperlipidemia, unspecified hyperlipidemia type (Primary Dx); Chronic pancreatitis, unspecified pancreatitis type (CMS/HCC) 07/17/2025 Patient Outreach [facility] [address] [place] [address] Trevor Medina ANP Pre-visit Planning (SDOH was already complete ) 07/17/2025 Travel 07/16/[address] [address] Trevor Medina ANP chart prep 07/14/[address] [address] Estelle Flynn, MEASUREMENT TECHNICIAN Follow-up 07/14/2025 Patient Outreach [address] [address] Trevor Medina ANP 07/13/2025 [facility] Only [facility] [employer] [address] [place] [id number] Pearl Kirk MD 07/13/2025 Patient Outreach [address] [address] Trevor Medina ANP Care Coordination (CHW chart review) 07/13/2025 Patient Outreach [address] [address] Trevor Medina ANP Care Management ([facility]- chart review) 07/13/2025 Patient Outreach [address] [address] Trevor Medina ANP 07/06/[address] [address] Trevor Medina ANP SHANNA (generalized anxiety disorder) 07/03/2025 Patient Outreach [address] [phone] Trevor Medina ANP Transition Of Care (Tcm) (HDF- unscheduled LVM) 07/01/[address] [address] Trevor Medina ANP Durable Medical Equipment 06/02/[address] [address] Estelle Flynn, MEASUREMENT TECHNICIAN Follow-up 05/28/2025 Orders Only [facility] [employer] [address] [place] [id number] ProviderPearl MD 05/25/2025 5:20 PM EDT Office Visit [facility] [address] [address] Rosalva Flores NP Pain of both breasts (Primary Dx) 05/25/2025 Travel 05/25/[address] [address] Trevor Medina ANP Nurse Triage 05/14/[address] [address] Estelle Flynn, MEASUREMENT TECHNICIAN Follow-up 05/13/[address] [address] Trevor Medina ANP Results 05/07/2025 1:00 PM EDT Office Visit [address] [address] Maddie Hilton DO Epigastric pain (Primary Dx); Nausea and vomiting, unspecified vomiting type; Chronic GERD 05/07/2025 Results Follow-Up [address] [address] Afua Alfred MD Rheumatoid Factor, Actin (Smooth Muscle) Antibody (IgG), Thyroglobulin Antibodies, Additional followed-up results: 5 05/07/2025 Orders Only GENERIC EXTERNAL DATA DEPARTMENT Provider, Generic External Data 05/07/[address] [address] Trevor Medina ANP Lab Orders (Pt requesting to know lab results contact pt ) 05/07/2025 Travel 05/06/[address] [address] Trevor Medina ANP 05/05/2025 1:45 PM EDT Office Visit [address] [address] Afua Alfred MD Chronic pancreatitis, unspecified pancreatitis type (CMS/HCC) (Primary Dx); Epigastric pain; Chronic abdominal pain; Transaminitis 05/05/2025 Orders Only GENERIC EXTERNAL DATA DEPARTMENT Provider, Generic External Data 05/05/2025 Travel 05/04/[address] [address] Trevor Medina ANP Chart Prep 04/30/[address] [address] Albertina Becker RN Hospital Follow-up 04/28/2025 Orders Only [facility] External Provider, [facility] 04/28/2025 Patient Outreach [address] [address] Trevor Medina ANP Care Coordination ([facility]- chart review) 04/28/2025 Patient Outreach [address] [address] Trevor Medina ANP 04/27/2025 Results Follow-Up [address] [address] Trevor Medina ANP CBC auto differential, Comprehensive Metabolic Panel, Urinalysis w/reflex microscopic, Additional followed-up results: 3 04/27/2025 Orders Only GENERIC EXTERNAL DATA DEPARTMENT Provider, Generic External Data from Last 3 Months Immunizations Immunization Administration Dates Next Due Hep A / [...] Sign Reading Time Taken Comments Blood Pressure 110/80 07/17/2025 9:47 AM EDT Pulse 84 07/17/2025 9:47 AM EDT Temperature 36.7 C (98.1 F) 07/17/2025 9:47 AM EDT Respiratory Rate 20 07/17/2025 9:47 AM EDT Oxygen Saturation 96% 05/25/2025 4:57 PM EDT Inhaled Oxygen Concentration - - Weight 71.8 kg (158 lb 4 oz) 07/17/2025 9:47 AM EDT Height 160 cm (5' 3 ) 07/17/2025 9:47 AM EDT Body Mass Index 28.03 07/17/2025 9:47 AM EDT Plan of Treatment Upcoming Encounters Date Type Department Care Team (Late st Contact Info) Description 07/27/2025 1:45 PM EDT Office Visit [facility] [address] [place] [phone] Chantelle Mitchell FNP [address] [place] [address] 10/02/2025 11:45 AM EST Office Visit [facility] [address] [place] [phone] Clarence Anderson MD [address] [place] [address] Health Maintenance Due Date Last Done Comments CT Colonography 1978 Dental Oral Exam 1978 Dental Prophylaxis 1978 Dental X-Ray: Full Mouth 1978 FIT DNA/Cologuard 1978 FIT 1978 FOBT 1978 Sigmoidoscopy 1978 Family Planning (PISQ) 1993 Dental X-Ray: Bitewings 09/27/2024 09/26/2023 COVID-19 Vaccine ( season) 2025 11/03/2022, 11/27/2021, 11/27/2021, Additional history exists Influenza Vaccine (#1) 2025 , 07/06/2022, 08/19/2021, Additional history exists Disability Screening 09/09/2025 09/09/2024 Diabetes: Hemoglobin A1C 11/12/2025 025, 09/19/2024, 09/11/2023, Additional history exists Mammogram 11/17/2025 11/17/2024, 10/30, 12/24/2023, Additional history exists SDOH Screening 12/08/2025 12/08/2024 Alcohol/Substance Use Screening 04/02/2026 04/02/2025 Depression Screening 04/02/2026 04/02/2025, 04/02/20 25 Tobacco Screening 07/17/2026 07/17/2025 Zoster Vaccines (1 of 2) 2028 Lipid Panel 03/31/2030 03/31/2025, 10/29, 09/19/2024, Additional history exists Colonoscopy 09/01/2031 09/01/2024, 12/17/2014 Colorectal Cancer Screening 09/01/2031 DTaP/Tdap/Td Vaccines (3 - Td or Tdap) 09/27/2031 09/27/2021, 05/04/2011, 12/03/1998 RSV Patients and Patients Aged 60 years or older (1 - 1-dose 75+ series) 2053 Cervical Cancer Screening Discontinued HPV/Cotest Discontinued 12/31/2013 Pap Smear Discontinued 12/31/2013 Hepatitis A Vaccines Aged Out 04/19/2016, 02/18/2014, 01/15/2014 No longer eligible based on patient's age to complete this topic Hepatitis B Vaccines Completed 09/27/2021, 04/19/2016, 02/18/2014, Additional history exists HIV Screening Completed 07/12/2023, 10/30, 08/17/2020, Additional history exists Hepatitis C Screening Completed 11/16/2023, 021 Pneumococcal Vaccine: Pediatrics (0 to 5 Years) and At-Risk Patients (6 to 49) Years Completed 07/18/2024, 09/04/2018, 05/04/2011, Additional history exists [...] Procedure Name Priority Date/Time Associated Diagnosis Comments HCG, TOTAL, QN Routine 07/24/2025 11:09 AM EDT LIPASE Routine 07/24/2025 11:09 AM EDT BASIC METABOLIC PANEL Routine 07/24/2025 11:09 AM EDT HEPATIC FUNCTION PANEL Routine 11:09 AM EDT URINALYSIS, COMPLETE, WITH REFLEX TO CULTURE Routine 07/24/2025 11:09 AM EDT CBC WITH AUTO DIFFERENTIAL Routine 07/24/2025 11:[address] ABDOMEN PELVIS W CONTRAST Routine 07/10/2025 1:[address] ABDOMEN PELVIS W CONTRAST Routine 05/27/2025 10:[address] ABDOMEN PELVIS W CONTRAST Routine 05/07/2025 11:30 PM EDT URINALYSIS, COMPLETE, WITH REFLEX TO CULTURE Routine 05/07/2025 8:38 PM EDT HIGH SENSITIVITY TROPONIN I Routine 05/07/2025 3:42 PM EDT HCG, TOTAL, QN Routine 05/07/2025 3:42 PM EDT LIPASE Routine 05/07/2025 3:42 PM EDT MAGNESIUM Routine 05/07/2025 3:42 PM EDT BASIC METABOLIC PANEL Routine 05/07/2025 3:42 PM EDT HEPATIC FUNCTION PANEL Routine 3:42 PM EDT CBC WITH AUTO DIFFERENTIAL Routine 05/07/2025 3:42 PM EDT AMYLASE Routine 05/07/2025 1:23 PM EDT Epigastric pain Nausea and vomiting, unspecified vomiting type LIPASE Routine 05/07/2025 1:23 PM EDT Epigastric pain Nausea and vomiting, unspecified vomiting type BASIC METABOLIC PANEL Routine 05/07/2025 1:23 PM EDT Epigastric pain Nausea and vomiting, unspecified vomiting type HEPATIC FUNCTION PANEL Routine 1:23 PM EDT Epigastric pain Nausea and vomiting, unspecified vomiting type CBC WITH AUTO DIFFERENTIAL Routine 05/07/2025 1:23 PM EDT Epigastric pain Nausea and vomiting, unspecified vomiting type COMPREHENSIVE METABOLIC PANEL Routine 05/05/2025 3:38 PM EDT LIPASE Routine 05/05/2025 3:38 PM EDT Chronic pancreatitis, unspecified pancreatitis type (CMS/HCC) IMMUNOGLOBULIN G SUBCLASSES PANEL Routine 05/05/2025 3:38 PM EDT Chronic pancreatitis, unspecified pancreatitis type (CMS/HCC) ANCA VASCULITIDES Routine 05/05/2025 3:3 8 PM EDT Chronic pancreatitis, unspecified pancreatitis type (CMS/HCC) THYROGLOBULIN ANTIBODIES Routine 05/05/2025 3:38 PM EDT Chronic pancreatitis, unspecified pancreatitis type (CMS/HCC) MITOCHONDRIAL ANTIBODY WITH REFLEX TO TITER Routine 05/05/2025 3:38 PM EDT Chronic pancreatitis, unspecified pancreatitis type (CMS/HCC) LIVER KIDNEY MICROSOME (LKM-1) AB (IGG) Routine 05/05/2025 3:38 PM EDT Chronic pancreatitis, unspecified pancreatitis type (CMS/HCC) JAMIE SCREEN, IFA, W/REFL TITER AND PATTERN Routine 05/05/2025 3:38 PM EDT Chronic pancreatitis, unspecified pancreatitis type (CMS/HCC) ACTIN (SMOOTH MUSCLE) ANTIBODY (IGG) Routine 05/05/2025 3:38 PM EDT Chronic pancreatitis, unspecified pancreatitis type (CMS/HCC) RHEUMATOID FACTOR Routine 05/05/2025 3:3 8 PM EDT Chronic pancreatitis, unspecified pancreatitis type (CMS/HCC) LEUKOCYTES STOOL QUALITATIVE Routine 05/03/2025 4:30 PM EDT Gastroenteritis MR MRCP Routine 04/28/2025 7:04 PM EDT HIGH SENSITIVITY TROPONIN I Routine 04/27/2025 3:[address] ABDOMEN PELVIS W CONTRAST Routine 04/27/2025 12:20 PM EDT US RENAL BI Routine 04/27/2025 11:09 AM EDT URINALYSIS WITH REFLEX MICROSCOPIC Routine 04/27/2025 10:08 AM EDT AMYLASE Routine 04/27/2025 9:40 AM EDT TRIGLYCERIDES Routine 04/27/2025 9:40 AM EDT LIPASE Routine 04/27/2025 9:40 AM EDT HCG, TOTAL, QN Routine 04/27/2025 9:40 AM EDT MAGNESIUM Routine 04/27/2025 9:40 AM EDT COMPREHENSIVE METABOLIC PANEL Routine 04/27/2025 9:40 AM EDT CBC WITH AUTO DIFFERENTIAL Routine 04/27/2025 9:40 AM EDT GASTROINTESTINAL PANEL Routine 9:02 AM EDT Gastroenteritis LIPID PANEL, STANDARD Routine 03/31/2025 8:15 AM EDT Hyperlipidemia, unspecified hyperlipidemia type BI MAMMOGRAM SCREEN W LUKAS W IMPLANTS HARJEET Routine 11/17/2024 2:28 PM EST HEMOGLOBIN A1C Routine 11/12/2024 8:04 AM EST Prediabetes HM COLONOSCOPY Routine 09/01/2024 HEPATITIS C AB W/REFL TO HCV RNA, QN, PCR Routine 11/16/2023 9:23 AM EST Elevated ferritin level BITEWING - SINGLE RADIOGRAPHIC IMAGE Routine 09/26/2023 11:30 AM EST Failing root canal HIV ANTIBODY/ANTIGEN ([place] DPH) Routine 07/12/2023 9:10 AM EDT PAP/HPV Routine 12/31/2013 from Last 3 Months or Most Recently Relevant to Health Maintenance Results * Urinalysis, Complete, with Reflex to Culture (07/24/2025 11:09 AM EDT) Only the most recent of2 resultswithin the time period is included. Color Urine Yellow [facility] Appearance Urine Clear [facility] PH 6.0 5.0 - 9.0 [facility] Glucose Urine UA Negative Negative mg/dL [facility] Urine Blood Negative Negative [facility] Specific [place] - Urine 1.020 1.005 - 1.025 [facility] Urine Protein Negative Neg-Trace mg/dL [facility] Urine Ketones Negative Negative mg/dL [facility] Nitrite Urine Negative Negative [facility] Leukocyte Esterase Urine Negative Negative [facility] RBC Urine 0-2 0 - 2 /HPF [facility] Urine WBC 0-5 0 - 5 /HPF [facility] Urine Squamous Epithelial Cell 0-2 0 - 2 /HPF [facility] Urine Bacteria None Seen None Seen [facility] Hyaline Casts, Urine 0-2 0 - 2 /LPF [facility] 07/24/2025 11:0 9 AM EDT 07/24/2025 11:19 AM EDT Narrative [facility] - 07/24/2025 11:26 AM EDT Urine, Clean Catch us Generic External Data Provider LAB URINE ORDERAB LES Final Result [facility] [address] [place] [phone] * CBC auto differential (07/24/2025 11:09 AM EDT) Only the most recent of4 resultswithin the time period is included. White Blood Count 7.2 4.8 - 10.8 X10*3/uL [facility] Red Blood Count 4.23 4.20 - 5.50 X10*6/uL [facility] Hemoglobin 12.0 12.0 - 16.0 g/dl [facility] Hematocrit 37.3 37.0 - 47.0 % [facility] Mean Corpuscular Volume 88.2 80.0 - 98.0 fL [facility] Mean Corpuscular Hemoglobin 28.4 27.0 - 33.0 pg [facility] Mean Corpuscular HGB Conc 32.2 31.0 - 35.0 g/dl [facility] Red Cell Distribution Width 12.4 11.0 - 16.0 % [facility] Platelet Count 292 160 - 400 X10*3/uL [facility] Mean Platelet Volume 10.7 9.4 - 12.3 fL [facility] Neutrophils Percent Auto 57.4 45 - 73 % [facility] Imm Gran Pct Auto 0.1 0.0 - 0.4 % [facility] Lymphocytes Percent Auto 30.3 20 - 40 % [facility] Monocytes Percent Auto 9.1 2 - 11 % [facility] Eosinophils Percent Auto 2.0 0 - 4 % [facility] Basophils Percent Auto 1.1 0 - 2 % [facility] NRBC Pct Auto 0.0 0.0 - 0.2 /100WBC [facility] Neutrophils Absolute Auto 4.1 2.0 - 8.3 x10*3/uL [facility] Imm Gran Abs Auto 0.01 0.00 - 0.03 X10*3/uL [facility] Lymphocytes Absolute Auto 2.2 1.2 - 4.9 X10*3/uL [facility] Monocytes Absolute Auto 0.7 0.1 - 1.2 X10*3/uL [facility] Eosinophils Absolute Auto 0.1 0.0 - 0.4 X10*3/uL [facility] Basophils Absolute Auto 0.1 0.0 - 0.2 X10*3/uL [facility] NRBC Abs Auto 0.000 0.0 - 0.012 X10*3/uL [facility] 07/24/2025 11:0 9 AM EDT 07/24/2025 11:19 AM EDT Generic External Data Provider LAB BLOOD ORDERAB LES Final Result Performing Organization Address City/[facility]/ZIP Co de Phone Number [facility] [address] [place] [phone] * hCG, Total, Quantitative (07/24/2025 11:09 AM EDT) Only the most recent of3 resultswithin the time period is included. HCG Quantitative <2 mIU/mL [facility] Comment:Weeks post LMP Appro ximate hCG(Last Menstrual Period) Range (mIU/ml)3 - 4 weeks 9 - 1304 - 5 weeks 75 - 2,6005 - 6 weeks 850 - 20,8006 - 7 weeks 4000 - 100,2007 - 12 weeks 11,500 - 289,68094 - 16 weeks 18,300 - 137,94333 - 29 weeks (2nd trimester) 1,400 - 53,43887 - 41 weeks (3rd trimester) 940 - [...] ORDERAB LES Final Result Performing Organization Address [facility]/ZIP Co de Phone Number [facility] [address] [place] [address] [phone] * Lipase (07/24/2025 11:09 AM EDT) Only the most recent of5 resultswithin the time period is included. Lipase 48 8 - 78 U/L [facility] 07/24/2025 11:0 9 AM EDT 07/24/2025 11:19 AM EDT Generic External Data Provider LAB BLOOD ORDERAB LES Final Result Performing Organization Address [facility] Co de Phone Number [facility] [address] [place] [phone] * Hepatic Function Panel (07/24/2025 11:09 AM EDT) Only the most recent of3 resultswithin the time period is included. Bilirubin, Total 0.8 0.0 - 1.0 mg/dL [facility] Bilirubin, Direct 0.2 0.0 - 0.5 mg/dL [facility] Aspartate Amino Transferase 19 5 - 31 U/L [facility] Alanine Aminotransferase 7 0 - 31 U/L [facility] Total Protein 7.4 6.5 - 8.0 g/dL [facility] Albumin Level 4.3 3.5 - 5.0 g/dL [facility] Alkaline Phosphatase 64 39 - 117 U/L [facility] 07/24/2025 11:0 9 AM EDT 07/24/2025 11:19 AM EDT Generic External Data Provider LAB BLOOD ORDERAB LES Final Result Performing Organization Address [facility] Co de Phone Number [facility] [address] [place] [address] [phone] * (ABNORMAL) Basic Metabolic Panel (07/24/2025 11:09 AM EDT) Only the most recent of3 resultswithin the time period is included. Sodium 142 135 - 145 mmol/L [facility] Potassium 4.5 3.3 - 5.1 mmol/L [facility] Chloride 110(H) 96 - 108 mmol/L [facility] Carbon Dioxide 28 22 - 29 mmol/L [facility] Anion Gap 9(L) 12 - 20 [facility] Urea Nitrogen (BUN) 9 9 - 16 mg/dL [facility] Creatinine, Serum 0.62 0.5 - 1.4 mg/dL [facility] Creatinine Clr Calc Pharmacy 108.4 [facility] Comment:Provided height and weight: 160.02 cm,74.48 kg.eGFR (calculated from the MDRD study equation) and eCrCl(calculated from the Cockcroft-Gault equation) are based ondifferent parameters and may not yield comparable results.If eCrCl result is absurd, please check patient'sheight/weight. Estimated Glomerular Filt Rate >60 [facility] Comment:Chronic Kidney Disea se: Estimated GFR < 60 mL/min/1.87t7Kmbxmo Kidney Disease: Estimated GFR < 15 mL/min/1.73m2 Glucose 80 60 - 115 mg/dL [facility] Calcium 9.5 8.4 - 10.2 mg/dL [facility] 07/24/2025 11:0 9 AM EDT 07/24/2025 11:19 AM EDT us Generic External Data Provider LAB BLOOD ORDERAB LES Final Result [facility] [address] [place] [phone] * CT Abdomen Pelvis w/ Contrast (07/10/2025 1:55 PM EDT) Only the most recent of4 resultswithin the time period is included. Anatomical Region Laterality Modality Body, Pelvis, Abdomen Computed T omography us Historical Provider MD ESPINOZA CT PROCEDURES Final R esult * High Sensitivity Troponin I (05/07/2025 3:42 PM EDT) Only the most recent of2 resultswithin the time period is included. TROPONIN I HIGH SENSITIVITY <2.7 <3.5 - 17.0 ng/L [facility] Comment:The [place] high sens itivity Troponin-I results should beused in conjunction with other diagnostic information suchas ECG, clinical observations and information, and patientsymptoms to aid in the diagnosis of [place]. 05/07/2025 3:42 PM EDT 05/07/2025 3:47 PM EDT us Generic External Data Provider LAB BLOOD ORDERAB LES Final Result Performing Organization Address [facility] Co de Phone Number [facility] [address] [place] [phone] * Magnesium (05/07/2025 3:42 PM EDT) Only the most recent of2 resultswithin the time period is included. Magnesium 2.0 1.6 - 2.6 mg/dL [facility] 05/07/2025 3:42 PM EDT 05/07/2025 3:47 PM EDT Generic External Data Provider LAB BLOOD ORDERAB LES Final Result Performing Organization Address [facility] de Phone Number [facility] [address] [place] [address] [phone] * Amylase (05/07/2025 1:23 PM EDT) Only the most recent of2 resultswithin the time period is included. Amylase 63 28 - 100 U/L [facility] Blood Venous blood specimen / Unknown 05/07/2025 1:23 PM EDT 05/07/2025 5:08 PM EDT us Maddie Hilton DO LAB BLOOD ORDERABLES Final R esult Performing Organization Address [facility] Co de Phone Number [facility] [address] [place] [address] [phone] * ANCA Vasculitides (05/05/2025 3:38 PM EDT) Myeloperoxidase Antibody <1.0 AI [facility] Comment:Value Interpretation ----- <1.0 No Antibody Detected > or = 1.0 Antibody DetectedAutoantibodies to myeloperoxidase (MPO) are commonlyassociated with the following small-vesselvasculitides: microscopic polyangiitis,polyarteritis nodosa, Churg-Emani syndrome,necrotizing and crescentic glomerulonephritis andoccasionally granulomatosis with polyangiitis(GPA, Hannah's). The perinuclear IFA pattern,(p-ANCA) is based largely on autoantibody tomyeloperoxidase which serves as the primary antigen.These autoantibodies are present in active disease. Proteinase-3 Antibody <1.0 AI [facility] Comment:Value Interpretation ----- <1.0 No Antibody Detected > or = 1.0 Antibody DetectedAutoantibodies to proteinase-3 (IA-3) are accepted ascharacteristic for granulomatosis with polyangiitis(GPA, Hannah's), and are detectable in 95% of thehistologically proven cases. The cytoplasmic IFApattern, (c-ANCA), is based largely on autoantibody toPR-3 which serves as the primary antigen.These autoantibodies are present in active disease.THIS TEST WAS PERFORMED AT:[facility] [place] [phone] FINNEY MD Blood 05/05/2025 3:38 PM EDT 05/05/2025 5:13 PM EDT us Afua Toscano MD LAB BLOOD ORDERAB LES Final Result [facility] [address] [place] [address] [phone] * (ABNORMAL) Actin (Smooth Muscle) Antibody (IgG) (05/05/2025 3:38 PM EDT) Smooth Muscle Antibody 26(A) <20 U [facility] Comment:Reference Range: <20 U: Negative>or=20 U: PositiveAntibodies recognizing actin are the main componentof smooth muscle antibodies associated with auto- immune liver disease. Actin antibodies are found inapproximately 75% of patients with autoimmunehepatitis (AIH) type 1, approximately 65% of patientswith autoimmune cholangitis, approximately 30% ofpatients with primary biliary cirrhosis andapproximately 2% of healthy controls. High values areclosely correlated with AIH type 1.THIS TEST WAS PERFORMED AT:[id number] [place] [address]VVBYTJHJESUSITA WELDON MD,PHD Blood Venous blood specimen / Unknown 05/05/2025 3:38 PM EDT 05/05/2025 5:13 PM EDT Afua Toscano MD LAB BLOOD ORDERAB LES Final Result Performing Organization Address [facility]/ZIP Co de Phone Number [facility] [address] [place] [phone] * Immunoglobulin G Subclasses Panel (05/05/2025 3:38 PM EDT) IgG Subclass 1 728 382 - 929 mg/dL [facility] IgG Subclass 2 273 241 - 700 mg/dL [facility] IgG Subclass 3 44 22 - 178 mg/dL [facility] IgG Subclass 4 71.8 4 - 86 mg/dL [facility] Immunoglobulin G, Serum 1162 600 - 1640 mg/dL [facility] Comment:THIS TEST WAS PERFOR MED AT:[facility] [address] [phone] FINNEY MD Blood Venous blood specimen / Unknown 05/05/2025 3:38 PM EDT 05/05/2025 5:13 PM EDT Afua Toscano MD LAB BLOOD ORDERAB LES Final Result Performing Organization Address [facility] Co de Phone Number [facility] [address] [place] [phone] * Liver Kidney Microsomal (LKM-1) Antibody??(IgG) (05/05/2025 3:38 PM EDT) Liver Kidney Microsomal (LKM-1) Antibody IgG <=20.0 <=20.0 U [facility] Comment:Reference Range: <=2 0.0 Negative 20.1-24.9 Equivocal >=25.0 PositiveAnti-liver/kidney microsomal antibodies (Anti-LKM-1)were previously tested by indirect immunofluorescence(IF) using rodent liver/kidney substrate.Identification of a specific antibody target ascytochrome P450 IID6 has led to the current recombinantbased NICOLE. Antibodies to this cytochrome are presentin approximately 70% of patients with autoimmunehepatitis type 2. This antibody is also present inapproximately 10% of patients with hepatitis Cinfection.THIS TEST WAS PERFORMED AT:[facility]/[id number] [place] [address]GMYUVROJESUSITA WELDON MD,PHD Blood Venous blood specimen / Unknown 05/05/2025 3:38 PM EDT 05/05/2025 5:13 PM EDT Afua Toscano MD LAB BLOOD ORDERAB LES Final Result Performing Organization Address [facility] Co de Phone Number [facility] [address] [place] [phone] * Thyroglobulin Antibodies (05/05/2025 3:38 PM EDT) Thyroglobulin Antibodies <1 < or = 1 IU/mL [facility] Comment:THIS TEST WAS PERFOR MED AT:[facility] [address] [phone] FINNEY MD Blood Venous blood specimen / Unknown 05/05/2025 3:38 PM EDT 05/05/2025 5:13 PM EDT Afua Toscano MD LAB BLOOD ORDERAB LES Final Result Performing Organization Address City/[facility]/ZIP Co de Phone Number [facility] [address] [place] [phone] * Mitochondrial Antibody with Reflex to Titer (05/05/2025 3:38 PM EDT) Pathologist [facility] Mitochondrial Antibodies NEGATIVE NEGATIVE [facility] Comment:The immunofluorescen ce assay (IFA) procedure revealsthe possible presence of another autoantibody.Consider requesting order code 263, Smooth MuscleAntibody with Reflex to Titer, if clinically indicated.THIS TEST WAS PERFORMED AT:[facility] [employer] [place] [phone] FINNEY MD Mitochondrial Ab Titer TNP [facility] Blood Venous blood specimen / Unknown 05/05/2025 3:38 PM EDT 05/05/2025 5:13 PM EDT us Afua Toscano MD LAB BLOOD ORDERAB LES Final Result Performing Organization Address [facility]/ZIP Co de Phone Number [facility] [address] [place] [phone] * Rheumatoid Factor (05/05/2025 3:38 PM EDT) [facility] Rheumatoid Factor <13.0 <15.0 IU/mL [facility] Blood Venous blood specimen / Unknown 05/05/2025 3:38 PM EDT 05/05/2025 5:13 PM EDT Afua Toscano MD LAB BLOOD ORDERAB LES Final Result Performing Organization Address City/[facility]/ZIP Co de Phone Number [facility] [address] [place] [address] [phone] * (ABNORMAL) JAMIE Screen,IFA, with Reflex to Titer and Pattern (05/05/2025 3:38 PM EDT) Pathologist [facility] Anti Nuclear Antibody Screen POSITIVE (A) NEGATIVE [facility] Comment:JAMIE IFA is a first l ine screen for detecting thepresence of up to approximately 150 autoantibodies invarious autoimmune diseases. A positive JAMIE IFA resultis suggestive of autoimmune disease and reflexes totiter and pattern. Further laboratory testing may beconsidered if clinically indicated.For additional information, please refer tohttp://education.Chicisimo/faq/ISQ116(This link is being provided for informational/educational purposes only.) JAMIE Titer 1:80(A) titer [facility] Comment:A low level JAMIE tite r may be present in pre-clinicalautoimmune diseases and normal individuals. Reference Range <1:40 Negative 1:40-1:80 Low Antibody Level >1:80 Elevated Antibody Level JAMIE Pattern Nuclear, Nucleola r(A) [facility] Comment:Nucleolar pattern is associated with systemic sclerosis(scleroderma), systemic sclerosis/polymyositis overlapand Sjogren's syndrome.AC-8,9,10: NucleolarInternational Consensus on JAMIE Patterns(https://doi.org/10.1515/dhtv-8438-9606)THIS TEST WAS PERFORMED AT:[facility] [employer] [place] [phone] FINNEY MD JAMIE TITER 2 (REF LAB) [facility]IE [facility] 2 [facility] JAMIE TITER 3 [facility] JAMIE PATTERN 3 [facility] Blood Venous blood specimen / Unknown 05/05/2025 3:38 PM EDT 05/05/2025 5:13 PM EDT Afua Toscano MD LAB BLOOD ORDERAB LES Final Result [facility] [address] [place] [phone] * (ABNORMAL) Comprehensive Metabolic Panel (05/05/2025 3:38 PM EDT) Only the most recent of2 resultswithin the time period is included. Sodium 142 135 - 145 mmol/L [facility] Potassium 3.9 3.3 - 5.1 mmol/L [facility] Chloride 105 96 - 108 mmol/L [facility] Carbon Dioxide 28 22 - 29 mmol/L [facility] Anion Gap 13 12 - 20 [facility] Urea Nitrogen (BUN) 10 9 - 16 mg/dL [facility] Creatinine, Serum 0.63 0.5 - 1.4 mg/dL [facility] Estimated Glomerular Filt Rate >60 [facility] Comment:Chronic Kidney Disea se: Estimated GFR < 60 mL/min/1.17j1Okerrv Kidney Disease: Estimated GFR < 15 mL/min/1.73m2 Glucose 82 60 - 115 mg/dL [facility] Calcium 9.3 8.4 - 10.2 mg/dL [facility] Bilirubin, Total 0.9 0.0 - 1.0 mg/dL [facility] Aspartate Amino Transferase 37(H) 5 - 31 U/L [facility] Alanine Aminotransferase 52(H) 0 - 31 U/L [facility] Total Protein 7.3 6.5 - 8.0 g/dL [facility] Albumin Level 4.3 3.5 - 5.0 g/dL [facility] Alkaline Phosphatase 72 39 - 117 U/L [facility] 05/05/2025 3:38 PM EDT 05/05/2025 5:13 PM EDT us Generic External Data Provider LAB BLOOD ORDERAB LES Final Result Performing Organization Address [facility] Co de Phone Number [facility] [address] [place] [phone] * Leukocytes Stool Qualitative (05/03/2025 4:30 PM EDT) Leukocytes Stool Qualitative NEGATIVE NEGATIVE [facility] Stool 05/03/2025 4:30 PM EDT 05/04/2025 11:51 AM EDT Jamie Garcia MD LAB BODY FLUIDS AND STOO LS ORDERABLES Final Result Performing Organization Address City/[facility]/ZIP Co de Phone Number [facility] [address] [place] [phone] * MR MRCP (04/28/2025 7:04 PM EDT) Anatomical Region Laterality Modality Lower Extremities Left Magnetic Reson ance 04/28/2025 7:04 PM EDT Narrative 04/28/2025 7:06 PM EDT [address] [address] Magnetic Resonance Report Signed Patient: Afua Hector MR#: [id number] : 1980 Acct:[id number] Age/Sex: 44 / F ADM Date: 04/28/25 Loc: HO.S3 379-[address]: Lam Hernandez MD Ordering Physician: Giovany Garrison MD Date of Service: 04/28/25 Procedure(s): MR MRCP Accession Number(s): [id number] cc: Giovany Garrison MD; TREVOR MEDINA NP CLINICAL HISTORY: elevated LFTs MRCP without gadolinium Comparison: None provided Findings: Trace bilateral pleural effusions. Bilateral breast implants. Gallbladder is absent. No biliary duct dilatation or choledocholithiasis. Common bile duct 4 mm diameter. Liver, pancreas, spleen, and adrenal glands are within normal limits. Small cysts in the left kidney. No hydronephrosis. Visualized bowel is within normal limits. IMPRESSION: 1. No acute findings. No biliary duct dilatation or choledocholithiasis. This document has been electronically signed by: Vivien Vazquez MD on 04/28/2025 19:04:46 Dictated By: Vivien Vazquez MD Signed By: <Electronically signed by Vivien Vazquez MD in OV> 04/28/251905 DD/ 03 TD/TT: 04/28/251903 [employer]: Procedure Note Donotuseinterpreter, Image - 04/28/[address] [address] Magnetic Resonance Report Signed Patient: Afua Hector LMR#: [id number] : 1980Acct:[id number] Age/Sex: 44 / FADM Date: 04/28/25 Loc: .S3 379-[address]: Lam Hernandez MD Ordering Physician: Giovany Garrison MD Date of Service: 04/28/25 Procedure(s): MR MRCP Accession Number(s): [id number] cc: Giovany Garrison MD; TREVOR MEDINA NP CLINICAL HISTORY: elevated LFTs MRCP without gadolinium Comparison: None provided Findings: Trace bilateral pleural effusions. Bilateral breast implants. Gallbladder is absent. No biliary duct dilatation or choledocholithiasis. Common bile duct 4 mm diameter. Liver, pancreas, spleen, and adrenal glands are within normal limits. Small cysts in the left kidney. No hydronephrosis. Visualized bowel is within normal limits. IMPRESSION: 1. No acute findings. No biliary duct dilatation or choledocholithiasis. This document has been electronically signed by: Vivien Vazquez MD on 04/28/2025 19:04:46 Dictated By: Vivien Vazquez MD Signed By: <Electronically signed by Vivien Vazquez MD in OV> 04/28/251905 DD/ 03 TD/TT: 04/28/251903 [employer]er Insole: [facility] External Provider IMG MRI PROCEDURES Final Result * US RENAL BI (04/27/2025 11:09 AM EDT) Anatomical Region Laterality Modality Abdomen Ultrasound 04/27/2025 11:0 9 AM EDT Narrative 04/27/2025 11:40 AM EDT [place] [address] Ultrasound Report Signed Patient: Afua Hector MR#: [id number] : 1980 Acct:[id number] Age/Sex: 44 / F ADM Date: 04/27/25 Loc: HO.ED Attending Dr: Ordering Physician: Alicia Reddy PA-C Date of Service: 04/27/25 Procedure(s): US renal BI Accession Number(s): [id number] cc: Alicia Reddy PA-C; TREVOR MEDINA NP EXAMINATION: Ultrasound renal bilaterally. CLINICAL INFORMATION: History of kidney stones. Costovertebral tenderness. COMPARISON: Ultrasound abdomen dated May 09, 2024. Correlated to noncontrast CT of abdomen dated March 25, 2025. TECHNIQUE: Real-time ultrasound of the kidneys using grayscale technique. FINDINGS: Right kidney: 11 x 5 x 5 cm. Volume: 166 cc. Normal echotexture. Normal renal cortical thickness. No hydronephrosis. 3 mm hyperechoic structure at the midportion of the pelvicalyceal system. Left kidney: 12 x 6 x 6 cm. Volume: 217 cc. Normal echotexture. Normal renal cortical thickness. No hydronephrosis. No gross solid or cystic lesion detected. US/US renal BI IMPRESSION: Nonobstructing 3 mm nephrolithiasis, right kidney. Electronically signed by: Angel Hull MD 04/27/2025 11:37 AM EDT RP Dictated By: Angel De Santiago MD Signed By: <Electronically signed by Angel Flynn MD in OV> 04/27/25 1137 DD/ 1109 TD/TT: 04/27/25 1117 [employer]: Procedure Note Donotuseinterpreter, Image - 04/27/2025 [place] [address] Ultrasound Report Signed Patient: Afua Hector LMR#: [id number] : 1980Acct:[id number] Age/Sex: 44 / FADM Date: 04/27/25 Loc: HO.ED Attending Dr: Ordering Physician: Alicia Reddy PA-C Date of Service: 04/27/25 Procedure(s): US renal BI Accession Number(s): [id number] cc: Alicia Reddy PA-C; TREVOR MEDINA NP EXAMINATION: Ultrasound renal bilaterally. CLINICAL INFORMATION: History of kidney stones. Costovertebral tenderness. COMPARISON: Ultrasound abdomen dated May 09, 2024. Correlated to noncontrast CT of abdomen dated March 25, 2025. TECHNIQUE: Real-time ultrasound of the kidneys using grayscale technique. FINDINGS: Right kidney: 11 x 5 x 5 cm. Volume: 166 cc. Normal echotexture. Normal renal cortical thickness. No hydronephrosis. 3 mm hyperechoic structure at the midportion of the pelvicalyceal system. Left kidney: 12 x 6 x 6 cm. Volume: 217 cc. Normal echotexture. Normal renal cortical thickness. No hydronephrosis. No gross solid or cystic lesion detected. US/US renal BI IMPRESSION: Nonobstructing 3 mm nephrolithiasis, right kidney. Electronically signed by: Angel Hull MD 04/27/2025 11:37 AM EDT RP Dictated By: Angel De Santiago MD Signed By: <Electronically signed by Angel Flynn MDin OV> 04/27/25 1137 DD/ 1109 TD/TT: 04/27/25 1117 [employer]: us [facility] External Provider IMG US PROCEDURES Final Result * Urinalysis w/reflex microscopic (04/27/2025 10:08 AM EDT) Color Urine Yellow [facility] Appearance Urine Clear [facility] PH 6.5 5.0 - 9.0 [facility] Glucose Urine UA Negative Negative mg/dL [facility] Urine Blood Negative Negative [facility] Specific Clark - Urine 1.025 1.005 - 1.025 [facility] Urine Protein Negative Neg-Trace mg/dL [facility] Urine Ketones Trace Negative mg/dL [facility] Nitrite Urine Negative Negative [facility] Leukocyte Esterase Urine Negative Negative [facility] 04/27/2025 10:0 8 AM EDT 04/27/2025 10:14 AM EDT Narrative [facility] - 04/27/2025 10:19 AM EDT [id number], [employer] us Generic External Data Provider LAB URINE ORDERAB LES Final Result [facility] [address] [place] [phone] * Triglycerides (04/27/2025 9:40 AM EDT) Pathologist [facility] Triglycerides 149 <150 mg/dL [facility] Comment:Desirable Triglyceri de: less than 150 mg/dLBorderline High Triglyceride 150-199 mg/dLHigh Triglyceride: 200-499 mg/dLVery High Triglyceride: greater than or equal to 5OO mg/dL 04/27/2025 9:40 AM EDT 04/27/2025 9:47 AM EDT us Generic External Data Provider LAB BLOOD ORDERAB LES Final Result [facility] [address] [place] [phone] * (ABNORMAL) Stool - Gastrointestinal panel (04/23/2025 9:02 AM EDT) [facility] Campylobacter Not Detected Not Detect. [facility] Plesiomonas shigelloides Not Detected Not Detect. [facility] Salmonella Not Detected Not Detect. [facility] Vibrio Not Detected Not Detect. [facility] Vibrio cholerae Not Detected Not Detect. [facility] YERSINIA ENTEROCOLITICA Not Detected Not Detect. [facility] Enteroaggregative E. coli (EAEC) Detected(A) Not Detect. [facility] Enteropathogenic E. coli (EPEC) Not Detected Not Detect. [facility] Enterotoxigenic E. coli (ETEC) lt/st Not Detected Not Detect. [facility] Shiga-like toxin-producing E. coli (STEC) stx1/stx2 Not Detected Not Detect. [facility] E coli O157 Not applicable Not Detect. [facility] Comment:E. coli containing t he O157 antigen are a subset ofShiga-like toxin- producing E. coli (STEC). Shigella/Enteroinvasive E. coli (EIEC) Not Detected Not Detect. [facility] Cryptosporidium Not Detected Not Detect. [facility] Cyclospora cayetanensis Not Detected Not Detect. [facility] Entamoeba histolytica Not Detected Not Detect. [facility] Giardia lamblia Not Detected Not Detect. [facility] Adenovirus F 40/41 Not Detected Not Detect. [facility] Astrovirus Not Detected Not Detect. [facility] Norovirus GI/GII Not Detected Not Detect. [facility] Rotavirus A Not Detected Not Detect. [facility] Sapovirus Not Detected Not Detect. [facility] Comment: All results must be correlated with clinical findings.Negative results do not exclude the possibility ofgastrointestinal infection and should not be used as thesole basis for diagnosis, treatment, or other managementdecisions. Virus, bacteria, and parasite nucleic acid maypersist in vivo independently of organism viability.Additionally, some organisms may be carriedasymptomatically.Detection of organism targets does not imply that thecorresponding organisms are infectious or are the causativeagents for clinical symptoms. There is a risk of falsenegative values due to the presence of sequence variants inthe gene targets of the assay, amplification inhibitors inspecimens, or inadequate numbers of organisms foramplification.The identification of several diarrheagenic E. colipathotypes has historically relied upon phenotypiccharacteristics. This panel targets genetic determinantscharacteristic of most pathogenic strains, but may notdetect all strains having phenotypic characteristics of apathotype.The performance of this test has not been established formonitoring treatment of infection with any of the panelorganisms.This assay is performed by Multiplexed PCR, utilizing [employer]. Stool Rectal contents / Unknown 04/23/2025 9:02 AM EDT 04/23/2025 11:25 AM EDT us Jamie Garcia MD LAB MICROBIOLOGY - GENER AL ORDERABLES Final Result [facility] [address] [place] [phone] * (ABNORMAL) Lipid Panel, Standard (03/31/2025 8:15 AM EDT) Triglycerides 80 <150 mg/dL [facility] [facility] Comment:Desirable Triglyceri de: less than 150 mg/dLBorderline High Triglyceride 150-199 mg/dLHigh Triglyceride: 200-499 mg/dLVery High Triglyceride: greater than or equal to 5OO mg/dL Cholesterol 205(H) <200 mg/dL [facility] Comment:Desirable Cholestero l: less than 200 mg/dLBorderline High Cholesterol: 200-239 mg/dLHigh Cholesterol: greater than 239 mg/dL LDL Cholesterol Calculated 138(H) <100 mg/dL [facility] Comment:Desirable LDL: less than 100 mg/dLNear Optimal/Above Optimal LDL: 110- 129 mg/dLBorderline High LDL: 130-159 mg/dLHigh LDL: 160-189 mg/dLVery High LDL: greater than or equal to 190 mg/dL HDL Cholesterol 51 >40 mg/dL [facility] Comment:Desirable HDL: great er than 40 mg/dL Note: This HDL assay may give artificially low results in patients with liver disease. Blood Venous blood specimen / Unknown 03/31/2025 8:15 AM EDT 03/31/2025 11:40 AM EDT Trevor Medina ANP LAB BLOOD ORDERABLES Final Resul t [facility] [address] [place] [address] [phone] * BI Mammogram Screen w/ Lukas w/ Implants Harjeet (11/17/2024 2:28 PM EST) Anatomical Region Laterality Modality Mammography 11/17/2024 2:28 PM EST Narrative 11/25/2024 3:33 PM EST [facility] [address] [place] [address] Mammography Report Signed Patient: Afua Hector MR#: [id number] : 1980 Acct:[id number] Age/Sex: 44 / F ADM Date: 11/17/24 Loc: HO.MAMMO Attending Dr: Trevor Medina TOOL ENGINE LATHE SET UP OPERATOR Ordering Physician: TREVOR MEDINA TOOL ENGINE LATHE SET UP OPERATOR Results: 2Benign Fin dings Date of Service: 11/17/24 Follow Up: 1 Year From Orig ina Mammogram Procedure(s): MM tomosynthesis screen imp BI Accession Number(s): [id number] cc: TREVOR MEDINA NP EXAMINATION: MM SCREENING DIGITAL BREAST TOMOSYNTHESIS, BILATERAL [...] by: Milla Craig DO 11/25/2024 03:30 PM [facility] Dictated By: Milla Craig DO Signed By: <Electronically signed by Milla Cragi DO in OV> 11/25/24 1530 DD/ 1428 TD/TT: 11/17/24 1452 Channeler Insole: Procedure Note Donotuseinterpreter, Image - 11/25/2024 [place] [facility] [address] [place], [place] [address] Mammography Report Signed Patient: Afua Hector LMR#: [id number] : 1980Acct:[id number] Age/Sex: 44 / FADM Date: 11/17/24 Loc: HO.MAMMO Attending Dr: Trevor Medina NP Ordering Physician: TREVOR MEDINA NPResults: 2Bvance hammonds Date of Service: 11/17/24Follow Up: 1 Year From [facility]a Mammogram Procedure(s): MM tomosynthesis screen imp BI Accession Number(s): [id number] cc: TREVOR MEDINA NP EXAMINATION: MM SCREENING DIGITAL BREAST TOMOSYNTHESIS, BILATERAL [...] 11/25/24 1530 DD/ 1428 TD/TT: 11/17/24 1452 Channeler Insole: Trevor Medina ANP IMG BI PROCEDURES Final Result * Hemoglobin A1c (11/12/2024 8:04 AM EST) Hemoglobin A1c 5.6 <6.0 % [facility] Comment:Hemoglobin A1C Refer ence Range Adults: 4.8 - 6.0 % Non diabetic: < 6.0 % Goal: < 7.0 %Additional Action Suggested: > 8.0 %Note: Hemoglobin A1c results are invalid for patients with abnormal amounts of HbF. Blood transfusions may impact the HbA1c concentration in the patient sample. Estimated Average Glucose 114 mg/dL [facility] Comment:eAG = Estimated ave rage glucose which is %A1C expressed asaverage glucose, using the formula of the H6V-PbjfzhqCciexsj Glucose study (ADAG), Diabetes Care, Vol.31,#8,May. 2007 Blood Venous blood specimen / Unknown 11/12/2024 8:04 AM EST 11/12/2024 11:03 AM EST Trevor Medina ANP LAB BLOOD ORDERABLES Final Resul t Performing Organization Address [facility] Co de Phone Number [facility] [address] [place] [address] [phone] * Colonoscopy (09/01/2024) Colonoscopy Normal Normal Narrative Rena Alejandra - 09/01/2024 Colonoscopy order added . Colonoscopy performed on 09/01/2024 per office note repeat in 7 years Historical Provider HEALTH MAINTENANCE Final Result * Hepatitis C Antibody with Reflex to HCV, RNA, Quantitative, Real-Time PCR (11/16/2023 9:23 AM EST) Hepatitis C Antibody Nonreactive Nonreactive [facility] Comment:Antibodies to HCV no t detected; does not exclude early acuteHCV infection. Blood Venous blood specimen / Unknown 11/16/2023 9:23 AM EST 11/16/2023 11:17 AM EST Trevor Medina [facility] LAB BLOOD ORDERABLES Final Resul t Performing Organization Address [facility] Co de Phone Number [facility] [address] [place] [address] [phone] * HIV Ab/Ag (KIERSTEN ALEGRIA) (07/12/2023 9:10 AM EDT) HIV AB/AG Nonreactive Nonreactive [facility] Comment:HIV-1 p24 Ag and/or HIV-1/HIV-2 Ab not detected.A test result that is nonreactive does not exclude thepossibility of exposure to or infection with HIV-1 and/orHIV-2. Nonreactive results in this assay for individualswith prior exposure to HIV-1 and/or HIV-2 may be due toantigen and antibody levels that are below the limit ofdetection of this assay.The [employer] HIV Ag/Ab Combo assay result andsupplemental assay results should be interpreted inconjunction with the patient's clinical presentation,history and other laboratory results. If the results areinconsistent with clinical evidence, additional testing issuggested to confirm the result. 07/12/2023 9:10 AM EDT 07/12/2023 11:28 AM EDT Pending sale to [facility] LAB BLOOD ORDERABLES Final Resul t [facility] [address] [place] [phone] * Pap Smear (12/31/2013) Pap Negative for intraephithelial lesion or malignancy Negative for intraephithelial lesion or malignancy, Other HPV Undetected Undetected, Indeterminate, Quantitative, Not Detected Historical Provider HEALTH MAINTENANCE Final Result from Last 3 Months or Most Recently Relevant to Health Maintenance Insurance [facility] MEDICAID STAND ADULT Care Teams Cost Estimator Relationship Specialty Start Date End Date Trevor Medina ANP [address] [place] [address] PCP - General Family Medicine 06/20/21 Scar Pimentel, SUKHWINDER [address] [place] [address] Registered Nurse Family Medicine 07/13/25 Tawny Frias 07/13/25
--- OUTSIDE RECORDS SUMMARY | 2025-07-24 13:13 | XMS_ITS | Encounter Summary ---
Author Organization [email or web address] Address [address] [facility] 7t [place] [address] Care Team Providers Care Cattle Manager Name Role Phone Evy Christopher Primary Care Provider Romeo Echavarria RN Unavailable [phone] Romeo Echavarria RN Unavailable [phone] Scar Pimentel RN Unavailable [phone] Tawny Frias Unavailable Reason for Visit * Reason Onset Date Comments Medication Question 09/26/2023 Encounter Details Date Type Department Care Team (Late st Contact Info) Description 09/26/2023 Telephone [facility] MEDICINE [address] [place], [place] [phone] Evy Christopher ANP [address] [place], [place] [phone] Medication Question Social History Tobacco Use Types [...] being too nervous. Please contact pt at [phone] Surinamese Speaker documented in this encounter Plan of Treatment Upcoming Encounters Date Type Department Care Team (Late st Contact Info) Description 07/27/2025 1:45 PM EDT Office Visit [facility] MEDICINE [address] [place] [address] Chantelle Mitchell FNP [address] [place] [address] 10/02/2025 11:45 AM EST Office Visit [facility]INE [address] [place] [address] Clarence Anderson MD [address] [place] [address] documented as of this encounter Visit Diagnoses Not on filedocumented in this encounter Additional Health Concerns Assessment Noted Time PHQ-9 Depression Total Score: 13 09/11/ 023 2:43 PM EST documented as of this encounter Care Teams Cattle Manager Relationship Specialty Start Date End Date Evy Christopher ANP [address] [place] [address] PCP - General Family Medicine 06/20/21 Romeo Echavarria, RN [address] [place] [address] Inspector Water Pollution ControlUnderground Distribution Engineer 12/25/24 05/07/25 Romeo Echavarria, RN [address] [place] [address] Registered Nurse Family Medicine 04/28/25 04/28/25 Scar Pimentel, SUKHWINDER [address] [place] [address] Registered Nurse Family Medicine 07/13/25 Tawny Frias 07/13/25 documented as of this encounter
--- OUTSIDE RECORDS SUMMARY | 2025-07-24 13:13 | XMS_ITS | Encounter Summary ---
Author Organization [employer] Address 75 [facility] 7t [place] [address] Care Team Providers Care Revenue Officer Name Role Phone Evy Christopher Primary Care Provider Romeo Echavarria RN Unavailable [phone] Romeo Echavarria RN Unavailable [phone] Scar Pimentel RN Unavailable Tawny Frias Unavailable Reason for Visit * Reason Onset Date Comments FYI 06/29/2023 Encounter Details Date Type Department Care Team (Late st Contact Info) Description 06/29/2023 Telephone [facility] MEDICINE [address] [place], [place] [phone] Evy Christopher ANP [address] [place], [place] [phone] Social History Tobacco Use Types Packs/Day Years [...] Miscellaneous Notes * Telephone Encounter - Abbey Wadenez - 06/29/2023 2:50 PM EDT Tre Mendoza at [facility] calling to inform PCP of senior living plan of care stoppedbut patient will continue with PT for 2 visit in the week. documented in this encounter Plan of Treatment Upcoming Encounters Date Type Department Care Team (Late st Contact Info) Description 07/27/2025 1:45 PM EDT Office Visit [facility] MEDICINE [address] [place] [address] Chantelle Mitchell FNP [address] [place] [address] 10/02/2025 11:45 AM EST Office Visit [address] [address] Clarence Anderson MD [address] [place] [address] documented as of this encounter Visit Diagnoses Not on filedocumented in this encounter Care Teams Revenue Officer Relationship Specialty Start Date End Date Evy Christopher ANP [address] [place] [address] PCP - General Family Medicine 06/20/21 Romeo Echavarria RN [address] [place] [address] Email Campaign ManagerIt Program Manager 12/25/24 05/07/25 Romeo Echavarria RN [address] [place] [address] Registered Nurse Family Medicine 04/28/25 04/28/25 Scar Pimentel RN [address] [place] [address] Registered Nurse Family Medicine 07/13/25 Tawny Frias 07/13/25 documented as of this encounter
--- OUTSIDE RECORDS SUMMARY | 2025-07-24 13:13 | XMS_ITS | Encounter Summary ---
Author Organization [employer] Address 75 [facility] 7t [place] [address] Care Team Providers Care Soda Maker Name Role Phone Ashwin Evy JULES Primary Care Provider [phone] Romeo Echavarria RN Unavailable [phone] Romeo Echavarria RN Unavailable [phone] Scar Pimentel RN Unavailable [phone] Tawny Frias Unavailable Encounter Details Date Type Department Care Team (Late st Contact Info) Description 09/23/2024 Orders Only [facility] [address] [place] [address] Provider, MD Pearl Social History Tobacco Use [...] Description 07/27/2025 1:45 PM EDT Office Visit [facility] MEDICINE [address] [place] [address] Chantelle Mitchell FNP [address] [place] [address] 10/02/2025 11:45 AM EST Office Visit [facility] MEDICINE [address] [place] [address] Clarence Anderson MD [address] [place] [address] documented as of this encounter Procedures Procedure [...] documented as of this encounter Care Teams Soda Maker Relationship Specialty Start Date End Date Evy Christopher ANP [address] [place] [address] PCP - General Family Medicine 06/20/21 Romeo Echavarria, RN [address] [place] [address] Hydrostatic Tubing TesterHot Stick Man 12/25/24 05/07/25 Romeo Echavarria, RN [address] [place] [address] Registered Nurse Family Medicine 04/28/25 04/28/25 Scar Pimentel, SUKHWINDER [address] [place] [address] Registered Nurse Family Medicine 07/13/25 Tawny Frias 07/13/25 documented as of this encounter
--- OUTSIDE RECORDS SUMMARY | 2025-07-24 13:13 | XMS_ITS | Encounter Summary ---
Author Organization [employer] Address 75 [facility] 7t [place] [address] Care Team Providers Care Wool Hat Hydraulicker Name Role Phone Evy Christopher Primary Care Provider [phone] Romeo Echavarria RN Unavailable [phone] Romeo Echavarria RN Unavailable [phone] Scar Pimentel RN Unavailable [phone] Tawny Frias Unavailable Reason for Visit * Reason Onset Date Comments Referral 01/22/2025 Encounter Details Date Type Department Care Team (Late st Contact Info) Description 01/22/2025 Telephone [facility] MEDICINE [address] [place], [place] [phone] Evy Christopher ANP [address] [place], [place] [phone] Referral Social History Tobacco Use Types Packs/Day [...] be sent to [facility] FAX [phone] documented in this encounter Plan of Treatment Upcoming Encounters Date Type Department Care Team (Late st Contact Info) Description 07/27/2025 1:45 PM EDT Office Visit [facility] MEDICINE [address] [place] [address] Chantelle Mitchell FNP [address] [place] [address] 10/02/2025 11:45 AM EST Office Visit [facility] [address] [place] [address] Clarence Anderson MD [address] [place] [address] documented as of this encounter Visit Diagnoses Not on filedocumented in this encounter Additional Health Concerns Assessment Noted Time PHQ-9 Depression Total Score: 2 05/23/20 24 9:49 AM EDT documented as of this encounter Care Teams Wool Hat Hydraulicker Relationship Specialty Start Date End Date Evy Christopher ANP [address] [place] [address] PCP - General Family Medicine 06/20/21 Romeo Echavarria, SUKHWINDER [address] [facility] [place] [address] Computer System SpecialistWood Milling Machine Tender 12/25/24 05/07/25 Romeo Echavarria, RN [address] [facility] [place] [address] Registered Nurse Family Medicine 04/28/25 04/28/25 Scar Pimentel, SUKHWINDER [address] [place] [address] Registered Nurse Family Medicine 07/13/25 Tawny Frias 07/13/25 documented as of this encounter
--- OUTSIDE RECORDS SUMMARY | 2025-07-24 13:13 | XMS_ITS | Encounter Summary ---
Author Organization [employer] Address 75 [facility] 7t [place] [address] Care Team Providers Care Metalworking Specialist Name Role Phone Ashwin Evy JULES Primary Care Provider [phone] Romeo Echavarria RN Unavailable [phone] Romeo Echavarria RN Unavailable [phone] Scar Pimentel RN Unavailable [phone] Tawny Frias Unavailable Encounter Details Date Type Department Care Team (Late st Contact Info) Description 09/11/2024 Orders Only [facility] [address] [place] [address] Provider, MD Pearl Social History Tobacco Use [...] Description 07/27/2025 1:45 PM EDT Office Visit [facility] MEDICINE [address] [place] [address] Chantelle Mitchell FNP [address] [place] [address] 10/02/2025 11:45 AM EST Office Visit [facility] MEDICINE [address] [place] [address] Clarence Anderson MD [address] [place] [address] documented as of this encounter Procedures Procedure [...] documented as of this encounter Care Teams Metalworking Specialist Relationship Specialty Start Date End Date Evy Christopher ANP [address] [place] [address] PCP - General Family Medicine 06/20/21 Romeo Echavarria, RN [address] [place] [address] Paper Goods Machine Set Up OperatorWorm Packer 12/25/24 05/07/25 Romeo Echavarria, RN [address] [place] [address] Registered Nurse Family Medicine 04/28/25 04/28/25 Scar Pimentel, SUKHWINDER [address] [place] [address] Registered Nurse Family Medicine 07/13/25 Tawny Frias 07/13/25 documented as of this encounter
--- OUTSIDE RECORDS SUMMARY | 2025-07-24 13:13 | XMS_ITS | Encounter Summary ---
Author Organization [employer] Address [address] [facility] 7t [place] [address] Care Team Providers Care Occupational Therapy Technician Name Role Phone Christopher Evy JULES Primary Care Provider [phone] Scar Pimentel RN Unavailable [phone] Tawny Frias Unavailable Encounter Details Date Type Department Care Team (Late st Contact Info) Description 07/13/2025 Orders Only [facility] [address] [place] [address] ProviderPearl MD Social History Tobacco Use Types [...] Description 07/27/2025 1:45 PM EDT Office Visit [facility] MEDICINE [address] [place] [address] Chantelle Mitchell FNP [address] [place] [address] 10/02/2025 11:45 AM EST Office Visit [address] [address] Clarence Anderson MD [address] [place] [address] documented as of this encounter Procedures Procedure Name Priority Date/Time Associated Diagnosis Comments CT ABDOMEN PELVIS W CONTRAST Routine 07/10/2025 1:55 PM EDT documented in this encounter Results * CT Abdomen Pelvis w/ Contrast (07/10/2025 1:55 PM EDT) Anatomical Region Laterality Modality Body, Pelvis, Abdomen Computed T omography us Historical Provider MD ESPINOZA CT PROCEDURES Final R esult documented in this encounter Visit Diagnoses Not on filedocumented in this encounter Additional Health Concerns Assessment Noted Time PHQ-9 Depression Total Score: 0 04/02/20 25 11:38 AM EDT documented as of this encounter Care Teams Occupational Therapy Technician Relationship Specialty Start Date End Date Evy Christopher ANP [address] [place] [address] PCP - General Family Medicine 06/20/21 Scar Pimentel RN [address] [place] [address] Registered Nurse Family Medicine 07/13/25 Tawny Frias 07/13/25 documented as of this encounter
--- OUTSIDE RECORDS SUMMARY | 2025-07-24 13:13 | XMS_ITS | Encounter Summary ---
Author Organization [employer] Address [address] [facility] [address] 7t [place] [address] Care Team Providers Care Director Strategy Name Role Phone Christopher Evy JULES Primary Care Provider [phone] Scar Pimentel RN Unavailable Tawny Frias Unavailable Reason for Visit * Reason Onset Date Comments CHART PREP 07/24/2025 Encounter Details Date Type Department Care Team (Late st Contact Info) Description 07/24/2025 Telephone [facility] MEDICINE [address] [place] [address] [place] CHART PREP Social History Tobacco Use Types Packs/Day Years [...] encounter Miscellaneous Notes * Telephone Encounter - Nicky Rodriguez [place] - 07/24/2025 11:56 AM EDT Chart Prep Labs: DONE Images: done Referrals: complete [place] 11/23/24 2:45 PM [facility] 03/24/25 10:30 AM Neurosurgery, [facility] Bubba Carty MD Vaccines due: Covid and Flu Screenings: not applicable Overdue care gaps: Not applicable documented in this encounter Plan of Treatment Upcoming Encounters Date Type Department Care Team (Late st Contact Info) Description 07/27/2025 1:45 PM EDT Office Visit [facility] MEDICINE [address] [place] [address] Chantelle Mitchell FNP [address] [place] [address] 10/02/2025 11:45 AM EST Office Visit [facility] MEDICINE [address] [place] [address] Clarence Anderson MD 230 [place] [address] documented as of this encounter Visit Diagnoses Not on filedocumented in this encounter Additional Health Concerns Assessment Noted Time PHQ-9 Depression Total Score: 0 04/02/20 11:38 AM EDT documented as of this encounter Care Teams Director Strategy Relationship Specialty Start Date End Date Evy Christopher ANP [address] [place] [address] PCP - General Family Medicine 06/20/21 Scar Pimentel, SUKHWINDER [address] [place] [address] Registered Nurse Family Medicine 07/13/25 Tawny Frias 07/13/25 documented as of this encounter
--- OUTSIDE RECORDS SUMMARY | 2025-07-24 13:13 | XMS_ITS | Encounter Summary ---
Author Organization [employer] Address 75 [facility] 7t [place] [address] Care Team Providers Care City Driver Name Role Phone Evy Christopher Primary Care Provider Romeo Echavarria RN Unavailable [phone] Romeo Echavarria RN Unavailable [phone] Scar Pimentel RN Unavailable [phone] Tawny Frias Unavailable Reason for Visit * Reason Onset Date Comments Durable Medical Equipment 07/02/2024 Encounter Details Date Type Department Care Team (Late st Contact Info) Description 07/02/2024 Telephone [facility] MEDICINE [address] [place], [place] [phone] Evy Christopher ANP [address] [place], [place] [phone] Durable Medical Equipment Social History Tobacco Use [...] have the order for the patient and alinare working on it. States that they will give her a call to set up service once its been processed.Hal states they do not need any additional info and it looks like they received chart notes etcand if anything else is needed the irrigation supervisor will reach out to us. Please call patient and inform that isaiah is working on processing the order. We have sent everything to them they are working on it. If she has any questions she can call them at [phone]. * Telephone Encounter - Tony Frias - 07/02/2024 3:53 PM EDT Tc from pt requesting status on CPAP machine. Please contact pt at [phone]. (Tanzanian Speaker) documented in this encounter Plan of Treatment Upcoming Encounters Date Type Department Care Team (Late st Contact Info) Description 07/27/2025 1:45 PM EDT Office Visit [facility] MEDICINE [address] [place] [address] Chantelle Mitchell FNP 230 [place] [address] 10/02/2025 11:45 AM EST Office Visit [facility] [address] [place] [address] Clarence Anderson MD [address] [place] [address] documented as of this encounter Visit Diagnoses Not on filedocumented in this encounter Additional Health Concerns Assessment Noted Time PHQ-9 Depression Total Score: 2 05/23/20 24 9:49 AM EDT documented as of this encounter Care Teams City Driver Relationship Specialty Start Date End Date Evy Christopher ANP [address] [place] [address] PCP - General Family Medicine 06/20/21 Romeo Echavarria RN [address] [place] [address] Welt StitcherNeuropsychiatric Aide 12/25/24 05/07/25 Romeo Echavarria RN [address] [place], [place] Registered Nurse Family Medicine 04/28/25 04/28/25 Scar Pimentel RN [address] [place], [place] Registered Nurse Family Medicine 07/13/25 Tawny Frias 07/13/25 documented as of this encounter
--- OUTSIDE RECORDS SUMMARY | 2025-07-24 13:13 | XMS_ITS | Encounter Summary ---
Author Organization [employer] Address [address] [place] [address] Care Team Providers Care Consultant Technology Name Role Phone Evy Christopher Primary Care Provider [phone] Romeo Echavarria RN Unavailable [phone] Romeo Echavarria RN Unavailable [phone] Scar Pimentel RN Unavailable [phone] Tawny Frias Unavailable Encounter Details Date Type Department Care Team (Late st Contact Info) Description 10/16/2024 Telephone [facility] [address] [place], [place] [phone] Evy Christopher ANP [address] [place], [place] [phone] Social History Tobacco Use Types Packs/Day Years [...] t he electric, gas, oil or water [employer] threatened to shut off services in your [...] [facility] [address] [place] [id number] Chantelle Mitchell FNP [address] [place] [phone] 10/02/2025 11:45 AM EST Office Visit [facility] [address] [place] [phone] Clarence Anderson MD [address] [place] [phone] documented as of this encounter Visit Diagnoses Not on filedocumented in this encounter Additional Health Concerns Assessment Noted Time PHQ-9 Depression Total Score: 2 05/23/20 24 9:49 AM EDT documented as of this encounter Care Teams Consultant Technology Relationship Specialty Start Date End Date Evy Christopher ANP [address] [place] [address] PCP - General Family Medicine 06/20/21 Romeo Echavarria, RN [address] [place] [address] Civil Engineering ProfessorBottom Bleacher 12/25/24 05/07/25 Romeo Echavarria, SUKHWINDER [address] [place] [address] Registered Nurse Family Medicine 04/28/25 04/28/25 Scar Pimentel, SUKHWINDER [address] [place] [address] Registered Nurse Family Medicine 07/13/25 Tawny Frias 07/13/25 documented as of this encounter
--- OUTSIDE RECORDS SUMMARY | 2025-07-24 13:13 | XMS_ITS | Encounter Summary ---
Author Organization [employer] Address [address] [facility] [address] [place] [address] Care Team Providers Care Steel Spar Operator Name Role Phone Evy Christopher Primary Care Provider [phone] Scar Pimentel RN Unavailable [phone] Tawny Frias Unavailable Reason for Visit * Reason Comments Care Coordination CM/CHW outreach Encounter Details Date Type Department Care Team (Latest Contact Info) Description 07/20/2025 Patient Outreach [facility] [address] [place], [place] [phone] Evy Christopher ANP [address] [place], [place] [phone] Care Coordination (CM/CHW outreach) Social History Tobacco Use Types Packs/Day [...] as of this encounter Progress Notes * Tawny Frias - 07/20/2025 1:53 PM EDT CHW Tawny Frias, placed outbound call to patient introducing herself from [facility] CM Department, in regards to offering services. Patient's name and was confirmed. Patient agreesto participate in program. Appt. for initial assessment scheduled for 08/04/25 @ 10AM tele with MARCY Pimentel RN. CHW reinforced direct contact information or CM forany additional questions or concerns and extended clinic hours on Mondays and Wednesdays, and Walk-In Urgent Care Located in [facility]. Patient provided with after-hours line for [facility], , which offer night time triage service and option to transfer to nutrition associate provider if needed. Patient verbalizes understanding, and able to repeat back to medical technical writer. documented in this encounter Plan of Treatment Upcoming Encounters Date Type Department Care Team (Late st Contact Info) Description 07/27/2025 1:45 PM EDT Office Visit [facility] [address] [place], [place] [phone] Chantelle Mitchell FNP [address] [place], [place] [phone] 10/02/2025 11:45 AM EST Office Visit [facility] [address] [place], [place] [phone] Clarence Anderson MD [address] [place], [place] [phone] documented as of this encounter Visit Diagnoses Not on filedocumented in this encounter Additional Health Concerns Assessment Noted Time PHQ-9 Depression Total Score: 0 04/02/20 11:38 AM EDT documented as of this encounter Care Teams Steel Spar Operator Relationship Specialty Start Date End Date Evy Christopher ANP [address] [place] [address] PCP - General Family Medicine 06/20/21 Scar Pimentel, SUKHWINDER [address] [place] [address] [phone] Registered Nurse Family Medicine 07/13/25 Tawny Frias 07/13/25 documented as of this encounter
--- OUTSIDE RECORDS SUMMARY | 2025-07-24 13:13 | XMS_ITS ---
Author Organization [employer] Address [address] [facility] [address] [place] [address] Care Team Providers Care Tenderizer Tender Name Role Phone Evy Christopher Primary Care Provider [phone] Scar Pimentel RN Unavailable [phone] Tawny Frias Unavailable CHW Complex Status:Outreach In Progress (Enrolling) Start date:07/13/2025 Enrollment reason:ADT Feed Overview ED- Pt went to [facility] ED on 07/10/25. Please outreach for enrollment. Case Team Name Relationship Phone Tawny Frias(Responsible Staff) [phone] Continued Care and Services Coordination
--- OUTSIDE RECORDS SUMMARY | 2025-07-24 13:13 | XMS_ITS | Clinical Summary ---
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 4 Active ALPRAZolam (XANAX) 0.5 mg tablet 4 Active blood sugar diagnostic (FreeStyle Lite Strips) test strip USE TO CHECK FASTING SUGAR IN THE MORNING OR NEEDED FOR SYMPTOMS 4 Active EPINEPHrine (EPIPEN) 0.3 mg/0.3 mL injection Inject 0.3 mL (0.3 mg total) as directed. 4 Active FLUoxetine (PROzac) 20 mg capsule Take 1 capsule (20 mg total) by mouth daily. 4 Active oxyCODONE (ROXICODONE) 5 mg immediate release tablet Take 1 tablet (5 mg total) by mouth every 4 (four) hours if needed for severe pain. Max Daily Amount: 30 mg 12 tablet 5 Active simethicone (MYLICON) 80 mg chewable tablet Chew 1 tablet (80 mg total) 4 (four) times a day if needed for flatulence (gas pain). 20 tablet 5 Active tirzepatide, weight loss, (Zepbound) 10 mg/0.5 mL injection Inject 0.5 mL (10 mg total) under the skin every 7 (seven) days. 2 mL 5 5 026 Active naproxen (NAPROSYN) 500 mg tablet Take 1 Tab by mouth every 12 hours as needed for Pain for up to 360 days. 0 Discontinu ed(Formula ry change) acetaminophen (TYLENOL) 500 mg tablet TAKE 1 TABLET BY MOUTH 4 TIMES A DAYS NEEDED FOR PAIN. Discontinu ed(Stop Taking at Discharge) ibuprofen (ADVIL,MOTRIN) 600 mg tablet TAKE 1 TABLET BY MOUTH FOUR TIMES DAILY FOR 10 DAYS NEEDED FOR PAIN 4 Discontinu ed(Stop Taking at Discharge) methocarbamoL (ROBAXIN) 750 mg tablet Take 1 tablet (750 mg total) by mouth 4 (four) times a day for 5 days. 20 each 5 Discontinu ed(Stop Taking at Discharge) methocarbamoL (ROBAXIN) 750 mg tablet Take 1 tablet (750 mg total) by mouth 4 (four) times a day for 10 days. 40 each 5 Discontinu ed(Stop Taking at Discharge) pantoprazole (PROTONIX) 40 mg EC tablet Take 1 tablet (40 mg total) by mouth 2 (two) times a day. Do not crush, chew, or split. 60 each 2 5 Discontinu ed(Stop Taking at Discharge) tirzepatide, weight loss, (Zepbound) 10 mg/0.5 mL injection Inject 0.5 mL (10 mg total) under the skin every 7 (seven) days. 2 mL 5 5 025 Discontinu ed(Stop Taking at Discharge) terconazole (TERAZOL 7) 0.4 % vaginal cream Insert 1 applicator into the vagina at bedtime for 7 days. 45 g 5 acetaminophen (TYLENOL) 500 mg tablet Take 2 tablets (1,000 mg total) by mouth every 8 (eight) hours for 5 days. 30 tablet 5 09/08/2 025 docusate sodium (COLACE) 100 mg capsule Take 1 capsule (100 mg total) by mouth 2 (two) times a day for 10 days. 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 03/03/2025 Skin lesion of left leg 02/23/2025 Generalized abdominal pain 01/12/2025 Strain of left rotator cuff capsule 12/30/2024 Bilateral sciatica 12/30/2024 Acid reflux 09/29/2024 Gastritis 09/29/2024 Asthma 09/29/2024 Benign lipomatous neoplasm 09/29/2024 Nausea 09/29/2024 Pain in right thigh 09/29/2024 Polyp of gallbladder 09/29/2024 Straining with stools 09/29/2024 Class 1 obesity 06/23/2024 Hemorrhoids, internal 06/23/2024 Incisional hernia 06/23/2024 Postoperative pain 06/23/2024 Transaminitis 06/23/2024 Myofascial pain 04/17/2024 Overview (08/22/2024): Last Assessment & Plan: I explained to Joseph that I believe her pain is MSK [...] adnexal mass, this pain is not likely 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 As such, there is no [...] both knees 03/03/2024 Elevated heart rate with christohper vated blood pressure without diagnosis of hypertension [...] Overview (09/29/2024): Cont rosuvastatin 40mg Mastodynia 09/07/2010 Resolved Problems Problem Noted Date Diagnosed Date Resolved Date Hiatal hernia 07/01/2025 07/01/2025 Hiatal hernia with GERD 04/14/2025 09/0 12/2024 Encounters Date Type Department Care Team Description 07/16/2025 Telephone Obstetrics and Gynecology - [address] [phone] Norah Celaya OR 07/15/2025 10:45 AM EDT Office Visit Bariatric Surgery [facility] [address] [phone] Mily Cardenas MD Hx of hiatal hernia (Primary Dx); Food intolerance 07/10/2025 12:58 PM EDT - 07/10/2025 6:24 PM EDT Emergency [facility] Emergency [address] [place] [phone] Ambrosio Soliz MD Periumbilical abdominal pain (Primary Dx) Discharge Disposition: Home or Self Care 07/09/2025 1:06 PM EDT - 07/09/2025 11:59 PM EDT Hospital Encounter Radiology Department - [address] [phone] Pelvic pain; History of ovarian cyst Discharge Disposition: Home or Self Care 06/30/2025 10:24 AM EDT Anesthesia Event [facility] Main OR [address] [place] [phone] Spring Vega MD Devlin, Brandon, SRNA 06/30/2025 10:00 AM EDT - 06/30/2025 12:30 PM EDT Surgery [facility] Main OR [address] [place] [phone] Mily Cardenas MD DAVINCI REPAIR OF HIATAL HERNIA [[id number] (CPT )] 06/30/2025 8:16 AM EDT - 07/01/2025 4:05 PM EDT Hospital Encounter [facility] Urology Unit [address] [place] [phone] Mily Cardenas MD Discharge Disposition: Home or Self Care 06/25/2025 Telephone Obstetrics and Gynecology - [address] [phone] Ifeoma Pfeiffer OR 06/24/2025 9:00 AM EDT Office Visit Obstetrics & Gynecology - [address] [phone] Tawny Arriaga CNM Pelvic pain (Primary Dx); Screen for STD (sexually transmitted disease); History of ovarian cyst 06/16/2025 8:45 AM EDT Office Visit Bariatric Surgery [address] [phone] Paul Rod MD Over weight (Primary Dx) 05/27/2025 5:59 PM EDT - 05/27/2025 10:51 PM EDT Emergency [facility] Emergency [address] [place] [phone] Nataliia Gallardo MD Abdominal pain, unspecified abdominal location (Primary Dx); Diarrhea, unspecified type; Nausea; Constipation, unspecified constipation type Discharge Disposition: Home or Self Care 05/27/2025 Telephone Bariatric Surgery [address] [phone] Paul Rod MD 05/20/2025 8:30 AM EDT Office Visit Bariatric Surgery [address] [phone] Mily Cardenas MD Gastroesophageal reflux disease, unspecified whether esophagitis present (Primary Dx); Hiatal hernia; Preop examination 05/13/2025 7:15 AM EDT - 05/13/2025 11:59 PM EDT Hospital Encounter [facility] Xray [address] [place] [phone] Gastroesophageal reflux disease, unspecified whether esophagitis present; Hiatal hernia Discharge Disposition: Home or Self Care 04/27/2025 6:04 AM EDT - 04/27/2025 7:48 AM EDT Emergency [facility] Emergency [address] [place] [phone] Discharge Disposition: Left Against Medical Advice from Last 3 Months Immunizations Name Administration Dates Next Due Hepatitis A-Hepatitis B Adul t (Twinrix) 18yo and older 04/19/2016,02/18/2014,01/15/2014 Hepatitis B (Mpjcyxk-W-Fkvew , Recombivax HB-Adult) 19yo and older 09/27/2021 [...] LAPAROSCOPY, CHOLECYSTECTOMY BREAST REDUCTION 2005 Bilateral PROCEDURE: VT BREAST REDUCTION SALPINGOOPHORECTOMY 2016 Left PROCEDURE: VT LAPAROSCOPY W/RMVL ADNEXAL STRUCTURES; COMMENT: left salpingectomy only HYSTERECTOMY 02/2018 PROCEDURE: HISTORICAL HYSTERECTOMY; COMMENT: robotic TUBAL LIGATION PROCEDURE: HISTORICAL TUBAL LIGATION BREAST SURGERY 08/2020 PROCEDURE: VT BREAST AUGMENTATION WITH IMPLANT; COMMENT: in [place] OTHER SURGICAL HISTORY 08/2020 PROCEDURE: HISTORICAL PANNICULECTOMY; COMMENT: Rose Marie mendoza in [place] Medical History Medical History Date Comments Anemia [...] High cholesterol DX:High cholest magdalena Anxiety 12/03/2015 Hiatal hernia GERD (gastroesophageal reflux disease) Depression Family History Medical History Relation Name Comments [...] drink = 0.6 oz pur e alcohol) Interpersonal Safety Answer Date Record ed Physical Abuse 06/30/2025 Verbal Abuse 06/30/2025 Comments No Sex and Gender Information Value [...] Sign Reading Time Taken Comments Blood Pressure 121/87 07/15/2025 10:29 AM EDT Pulse 92 07/15/2025 10:29 AM EDT Temperature 36.5 C (97.7 F) 07/15/2025 10:29 AM EDT Respiratory Rate 16 07/10/2025 4:40 PM EDT Oxygen Saturation 99% 07/10/2025 4:40 PM EDT Inhaled Oxygen Concentration - - Weight 72.1 kg (159 lb) 07/15/2025 10:29 AM EDT Height 160 cm (5' 3 ) 07/15/2025 10:29 AM EDT Body Mass Index 28.17 07/15/2025 10:29 AM EDT Plan of Treatment Upcoming Encounters Date Type Department Care Team (Late st Contact Info) Description 07/29/2025 3:00 PM EDT Office Visit Bariatric Surgery - [address] [phone] Mily Cardenas MD [address] [place] [phone] 12/17/2025 10:15 AM EST Office Visit Bariatric Surgery - [address] [phone] Paul Rod MD [address] [place] [phone] Health Maintenance Due Date Last Done Comments Breast Cancer Screening 1978 Colorectal Cancer Screening: Colonoscopy 10/01/2022 Social Influencers of Health Screening 10/01/2022 Depression Screening 10/29/2024 COVID-19 Vaccine ( season) 2025 11/03/2022, 11/27/2021, 03/23/2021, Additional history exists Influenza Vaccine (#1) 2025 4, 07/06/2022, 08/19/2021, Additional history exists Cholesterol Screening (Lipid Panel) 03/31/2030 03/31/2025, 11/12/2024, 09/19/2024 DTaP,Tdap,and Td Vaccines (4 - Td or Tdap) 09/27/2031 09/27/2021, 05/04/2011, 12/03/1998 RSV Immunization Adult Patients (1 - 1-dose 75+ series) 2053 MMR Vaccines Aged Out 02/15/1999, 12/03/1998 No lo nger eligible based on patient's age to complete this topic Hepatitis A Vaccines Aged Out 04/19/2016, 02/18/2014, 01/15/2014 No longer eligible based on patient's age to complete this topic Hepatitis B Vaccines Completed 09/27/2021, 04/19/2016, 02/18/2014, Additional history exists HIV Screening Completed 02/01/2022 Hepatitis C Screening Completed 11/16/2023, 022 Pneumococcal Vaccine: Pediatrics (0 to 5 Years) and At-Risk Patients (6 to 49 Years) Completed 07/18/2024, 09/04/2018, 05/04/2011, Additional history [...] Procedure Name Priority Date/Time Associated Diagnosis Comments ECG ANNOTATED 07/13/2025 CT ABDOMEN PELVIS W CONTRAST STAT 07/10/2025 3:09 PM EDT CBC WITH AUTO DIFFERENTIAL STAT 07/10/2025 12:48 PM EDT LIPASE STAT 07/10/2025 12:48 PM EDT COMPREHENSIVE METABOLIC PANEL STAT 07/10/2025 12:48 PM EDT CBC AND DIFFERENTIAL STAT 07/10/2025 12:48 PM EDT ECG 12-LEAD STAT 07/10/2025 12:45 PM EDT US DUPLEX ABDOMEN/PELVIS/RETRO LIMITED Routine 07/09/2025 1:55 PM EDT Pelvic pain History of ovarian cyst US PELVIS NON OB COMPLETE W TRANSVAGINAL Routine 07/09/2025 1:55 PM EDT Pelvic pain History of ovarian cyst CBC WITH AUTO DIFFERENTIAL Routine 07/01/2025 6:13 AM EDT PHOSPHORUS Routine 07/01/2025 6:13 AM EDT MAGNESIUM Routine 07/01/2025 6:13 AM EDT BASIC METABOLIC PANEL Routine 07/01/2025 6:13 AM EDT CBC AND DIFFERENTIAL Routine 07/01/2025 6:13 AM EDT OXYGEN THERAPY, ADULT Routine 06/30/2025 12:30 PM EDT OXYGEN THERAPY, ADULT Routine 06/30/2025 12:30 PM EDT TH AN ENDOTRACHEAL(NO CHARGE) Routine 06/30/2025 10:40 AM EDT VT LAPAROSCOPY SURG REPAIR PARAESOPHAGEAL HERNIA INCL FUNDOPLASTY WO MESH 06/30/2025 10:24 AM EDT Hiatal hernia with GERD Case Notes 23-HR BED Special Needs 23 HOUR BED TYPE AND SCREEN Routine 06/30/2025 9:12 AM EDT TRICHOMONAS VAGINALIS ANTIGEN Routine 06/24/2025 9:32 AM EDT Pelvic pain CULTURE URINE Routine 06/24/2025 9:32 AM EDT Pelvic pain WET PREP, GENITAL Routine 06/24/2025 9:3 2 AM EDT Pelvic pain CHLAMYDIA TRACHOMATIS AND NEISSERIA GONORRHOEAE PCR Routine 06/24/2025 9:32 AM EDT Screen for STD (sexually transmitted disease) CBC WITH AUTO DIFFERENTIAL Routine 06/22/2025 10:47 AM EDT Hiatal hernia with GERD TYPE AND SCREEN Routine 06/22/2025 10:47 AM EDT Hiatal hernia with GERD ACTIVATED PARTIAL THROMBOPLASTIN TIME Routine 06/22/2025 10:47 AM EDT Hiatal hernia with GERD COMPREHENSIVE METABOLIC PANEL Routine 06/22/2025 10:47 AM EDT Hiatal hernia with GERD CBC AND DIFFERENTIAL Routine 06/22/2025 10:47 AM EDT Hiatal hernia with GERD CT ABDOMEN PELVIS W CONTRAST STAT 05/27/2025 9:22 PM EDT POC , URINE DIAGNOSTIC STAT 05/27/2025 8:06 PM EDT URINALYSIS WITH REFLEX MICROSCOPIC STAT 05/27/2025 8:06 PM EDT URINALYSIS WITH REFLEX MICROSCOPIC STAT 05/27/2025 8:06 PM EDT LIPASE STAT Add-on 05/27/2025 6:24 PM EDT CBC WITH AUTO DIFFERENTIAL STAT 05/27/2025 6:24 PM EDT COMPREHENSIVE METABOLIC PANEL STAT 05/27/2025 6:24 PM EDT CBC AND DIFFERENTIAL STAT 05/27/2025 6:24 PM EDT XR UGI W AIR CONTRAST STAT 05/13/2025 8:22 AM EDT Gastroesophageal reflux disease, unspecified whether esophagitis present Hiatal hernia JETT URINE CULTURE TUBE STAT 04/27/2025 5:11 AM EDT URINALYSIS WITH REFLEX MICROSCOPIC AND CULTURE STAT 04/27/2025 5:11 AM EDT URINALYSIS WITH REFLEX MICROSCOPIC AND CULTURE STAT 04/27/2025 5:11 AM EDT CULTURE URINE STAT 04/27/2025 5:11 AM EDT CBC WITH AUTO DIFFERENTIAL STAT 04/27/2025 5:09 AM EDT LIPASE STAT 04/27/2025 5:09 AM EDT COMPREHENSIVE METABOLIC PANEL STAT 04/27/2025 5:09 AM EDT CBC AND DIFFERENTIAL STAT 04/27/2025 5:09 AM EDT HEPATITIS C SCREENING Routine 02/01/2022 HIV SCREENING Routine 02/01/2022 from Last 3 Months or Most Recently Relevant to Health Maintenance Results * ECG-Annotated (07/13/2025) us Provider Onbase MD ECG ORDERABLES Final Result * CT Abdomen Pelvis w Contrast (07/10/2025 3:09 PM EDT) Only the most recent of2 resultswithin the time period is included. Anatomical Region Laterality Modality Body Computed Tomogra phy 07/10/2025 4:05 PM EDT Impressions 07/10/2025 4:22 PM EDT Postoperative changes of a Hari fundoplication without evidence for obstruction, fluid collection or abscess. -------- FINAL REPORT -------- Dictated By: John Nick Dictated Date: 07/10/2025 16:05 ET Assigned Physician: John Nick Reviewed and Electronically Signed By: John Nick Signed Date: 07/10/2025 16:22 ET Workstation ID: [id number] Transcribed By: Self Edit Transcribed Date: 07/10/2025 16:05 ET Narrative 07/10/2025 4:22 PM EDT PROCEDURE: CT ABDOMEN/PELVIS WITH CONTRAST INDICATION: ABdominal pain after surgery TECHNIQUE: CT of the abdomen and pelvis following the intravenous administration of 90cc Isovue 370. Multiplanar reformats. The examination was performed utilizing dose reduction techniques. Total DLP 899 COMPARISON: No priors available. FINDINGS: LOWER THORAX: Lung bases are clear. HEPATOBILIARY: Patchy perfusion/enhancement of the liver nonspecific. Cholecystectomy. SPLEEN: No focal lesion. PANCREAS: No focal mass or ductal dilatation. ADRENALS: No nodules. KIDNEYS/URETERS: No hydronephrosis, stones, or solid mass. PELVIC ORGANS/BLADDER: Hysterectomy. Trace free fluid in the pelvis. PERITONEUM / RETROPERITONEUM: No ascites or free air. No retroperitoneal lymphadenopathy. VESSELS: Scattered atherosclerotic calcifications throughout the aorta and its major branches. No aneurysm. GI TRACT: Hari fundoplication. Prominent stool burden throughout the colon. No bowel obstruction. BONES AND SOFT TISSUES: Scattered degenerative changes seen throughout the bones. Subcutaneous stranding over the lower abdomen. No fluid collection. Procedure Note John Nick MD - 07/10/2025 PROCEDURE: CT ABDOMEN/PELVIS WITH CONTRAST INDICATION: ABdominal pain after surgery TECHNIQUE: CT of the abdomen and pelvis following the intravenousadministration of 90cc Isovue 370. Multiplanar reformats. The examinationwas performed utilizing dose reduction techniques. Total DLP 899 COMPARISON: No priors available. FINDINGS: LOWER THORAX: Lung bases are clear. HEPATOBILIARY: Patchy perfusion/enhancement of the liver nonspecific.Cholecystectomy. SPLEEN: No focal lesion. PANCREAS: No focal mass or ductal dilatation. ADRENALS: No nodules. KIDNEYS/URETERS: No hydronephrosis, stones, or solid mass. PELVIC ORGANS/BLADDER: Hysterectomy. Trace free fluid in the pelvis. PERITONEUM / RETROPERITONEUM: No ascites or free air. No retroperitoneallymphadenopathy. VESSELS: Scattered atherosclerotic calcifications throughout the aorta andits major branches. No aneurysm. GI TRACT: Hari fundoplication. Prominent stool burden throughout thecolon. No bowel obstruction. BONES AND SOFT TISSUES: Scattered degenerative changes seen throughout thebones. Subcutaneous stranding over the lower abdomen. No fluidcollection. IMPRESSION: Postoperative changes of a Hari fundoplication without evidence forobstruction, fluid collection or abscess. -------- FINAL REPORT -------- Dictated By: John Nick Dictated Date: 07/10/2025 16:05 ET Assigned Physician: John Nick Reviewed and Electronically Signed By: John Nick Signed Date: 07/10/2025 16:22 ET Workstation ID: [id number] Transcribed By: Self Edit Transcribed Date: 07/10/2025 16:05 ET Ambrosio Soliz MD IMG CT PROCEDURES Final Result * (ABNORMAL) CBC auto differential (07/10/2025 12:48 PM EDT) Only the most recent of5 resultswithin the time period is included. WBC 6.7 4.8 - 10.8 K/mcL LAB HEMETOLOGY METHOD 07/10/2025 1:10 PM EDT [facility] RBC 4.20 3.80 - 4.80 M/mcL LAB HEMETOLOGY METHOD 07/10/2025 1:10 PM EDT [facility] Hemoglobin 11.9 11.5 - 16.0 g/dL LAB HEMETOLOGY METHOD 07/10/2025 1:10 PM EDT [facility] Hematocrit 38.4 35.0 - 47.0 % LAB HEMETOLOGY METHOD 07/10/2025 1:10 PM EDT [facility] MCV 90.8 79.0 - 98.0 FL LAB [facility] MCH 28.1 27.0 - 32.0 pcg LAB HEMETOLOGY METHOD 07/10/2025 1[facility] MCHC 31.0(L) 32.0 - 37.0 g/dL LAB HEMETOLOGY METHOD 07/10/2025 1:[facility] RDW 12.5 11.0 - 15.0 % LAB HEMETOLOGY METHOD 07/10/2025 1:10 PM [facility] Platelets 328 130 - 400 K/mcL LAB HEMETOLOGY METHOD 07/10/2025 1:10 PM [facility] MPV 10.2 7.0 - 11.0 FL LAB HEMETOLOGY METHOD 07/10/2025 1:10 PM [facility] NRBC 0.0 <1.0 % LAB HEMETOLOGY METHOD 07/10/2025 1:10 PM [facility] NRBC Absolute 0.00 <0.10 K/mcL LAB HEMETOLOGY METHOD 07/10/2025 1:10 PM [facility] Neutrophils Relative 59.5 % LAB HEMETOLOGY METHOD 07/10/2025 1:10 PM [facility] Lymphocytes Relative 27.2 % LAB HEMETOLOGY METHOD 07/10/2025 1:10 PM [facility] Monocytes Relative 9.0 % LAB HEMETOLOGY METHOD 07/10/2025 1:10 PM [facility] Eosinophils Relative 3.0 % LAB HEMETOLOGY METHOD 07/10/2025 1:10 PM [facility] Basophils Relative 0.9 % LAB HEMETOLOGY METHOD 07/10/2025 1:10 PM [facility] Immature Granulocytes Relative 0.4 % LAB HEMETOLOGY METHOD 07/10/2025 1:10 PM [facility] Neutrophils Absolute 3.97 1.50 - 7.00 K/mcL LAB HEMETOLOGY METHOD 07/10/2025 1:10 PM [facility] Lymphocytes Absolute 1.82 1.00 - 5.00 K/mcL LAB HEMETOLOGY METHOD 07/10/2025 1:10 PM EDT [facility] Monocytes Absolute 0.60 0.20 - 1.00 K/[facility] LAB HEMETOLOGY METHOD 07/10/2025 1:10 PM EDT [facility] Eosinophils Absolute 0.20 0.00 - 0.50 K/[facility] LAB HEMETOLOGY METHOD 07/10/2025 1:10 PM EDT [facility] Basophils Absolute 0.06 0.00 - 0.20 K/[facility] LAB HEMETOLOGY METHOD 07/10/2025 1:10 PM EDT [facility] Immature Granulocytes Absolute 0.03 0.00 - 0.03 K/[facility] LAB HEMETOLOGY METHOD 07/10/2025 1:10 PM EDT [facility] Blood Venous blood specimen / Unknown Venipuncture / Unknown 07/10/2025 12:48 PM EDT 07/10/2025 1:05 PM EDT Caroline GREEN LAB BLOOD ORDERABLES F inal Result [facility] [address] [place] [address], [place] [phone] * Lipase (07/10/2025 12:48 PM EDT) Only the most recent of3 resultswithin the time period is included. Lipase 26 13 - 75 unit/L LAB CHEMISTRY METHOD 07/10/2025 1:29 PM EDT [facility] Blood Venous blood specimen / Unknown Venipuncture / Unknown 07/10/2025 12:48 PM EDT 07/10/2025 1:05 PM EDT [employer] LAB BLOOD ORDERABLES F inal Result [facility] [address] [place] [address], [place] [phone] * Comprehensive metabolic panel (07/10/2025 12:48 PM EDT) Only the most recent of4 resultswithin the time period is included. Sodium 139 133 - 145 mmol/L LAB CHEMISTRY METHOD 07/10/2025 1:29 PM EDT [facility] Potassium 4.4 3.5 - 5.5 mmol/L LAB CHEMISTRY METHOD 07/10[facility]2025 [facility] Chloride 105 96 - 110 mmol/L LAB CHEMISTRY METHOD 07/10/2025 1:29 PM [facility] CO2 28 21 - 32 mmol/L LAB CHEMISTRY METHOD 07/10/2025 1:29 [facility] Anion Gap 6 3 - 11 LAB CHEMISTRY METHOD 07/10/2025 1:29 PM EDT [facility] Glucose 83 70 - 100 mg/dL LAB CHEMISTRY METHOD 07/10/2025 1:29 [facility] BUN 7 5 - 25 mg/dL LAB CHEMISTRY METHOD 07/10/2025 1:29 [facility] Creatinine 0.68 0.50 - 1.10 mg/dL LAB CHEMISTRY METHOD 07/10/2025 1:29 PM EDT [facility] eGFR 108 >=60 mL/min/1. 73m2 LAB CHEMISTRY METHOD 07/10/2025 1:29 PM [facility] Comment:Calculation based on the Chronic Kidney Disease Epidemiology Collaboration (CKD-EPI) equation refit without adjustment for race. BUN/Creatinine Ratio 10.3 LAB CHEMISTRY METHOD 07/10/2025 1:29 PM [facility] Calcium 9.2 8.5 - 10.5 mg/dL LAB CHEMISTRY METHOD 07/10/2025 1:29 PM [facility] AST (SGOT) 18 10 - 42 unit/L LAB CHEMISTRY METHOD 07/10/2025 1:29 PM EDT [facility] ALT (SGPT) 18 10 - 60 unit/L LAB CHEMISTRY METHOD 07/10/2025 1:29 PM EDT [facility] Alkaline Phosphatase 73 42 - 121 unit/L LAB CHEMISTRY METHOD 07/10/2025 1:29 PM EDT [facility] Total Protein 7.1 6.0 - 8.0 g/dL LAB CHEMISTRY METHOD 07/10/2025 1:29 PM EDT [facility] Albumin 3.6 3.2 - 5.0 g/dL LAB CHEMISTRY METHOD 07/10/2025 1:29 PM EDT [facility] Total Bilirubin 1.0 0.0 - 1.4 mg/dL LAB CHEMISTRY METHOD 07/10/2025 1:29 PM EDT [facility] Blood Venous blood specimen / Unknown Venipuncture / Unknown 07/10/2025 12:48 PM EDT 07/10/2025 1:05 PM EDT Caroline GREEN LAB BLOOD ORDERABLES F inal Result [facility] [address] [place] [address], * ECG 12 lead (07/10/2025 12:45 PM EDT) Ventricular Rate ECG 71 BPM GEMUSE Atrial Rate 71 BPM GEMUSE P-R Interval 156 ms GEMUSE QRS Duration 86 ms GEMUSE Q-T Interval 402 ms GEMUSE QTc 436 ms GEMUSE P Wave [place] 57 degrees GEMUSE R [place] 21 degrees GEMUSE T [place] -4 degrees GEMUSE ECG Interpretation Normal sinus rhythm Minimal voltage criteria for LVH, may be normal variant ( Nicanor product ) T wave abnormality, consider anterolateral ischemia Abnormal ECG When compared with ECG of 07-DEC-2024 14:43, Inverted T waves have replaced nonspecific T wave abnormality in Anterior leads Confirmed by MD FLORES JOHN ([id number]) on 07/10/2025 4:44:31 PM GEMUSE 07/10/2025 12:4 5 PM EDT 07/10/2025 4:44 PM EDT us Caroline GREEN ECG ORDERABLES Final Result GEMUSE * US Pelvis Non OB Complete w Transvaginal (07/09/2025 1:55 PM EDT) Anatomical Region Laterality Modality Body, Pelvis Ultrasound 07/09/2025 5:03 PM EDT Impressions 07/09/2025 5:05 PM EDT 1. Right ovarian follicle 2. Left ovary not seen 3. Status post hysterectomy -------- FINAL REPORT -------- Dictated By: Silvio Santiago Dictated Date: 07/09/2025 17:03 ET Assigned Physician: Silvio Santiago Reviewed and Electronically Signed By: Silvio Santiago Signed Date: 07/09/2025 17:05 ET Workstation ID: [id number] Transcribed By: Self Edit Transcribed Date: 07/09/2025 17:03 ET Narrative 07/09/2025 5:05 PM EDT EXAM: TRANSABDOMINAL AND TRANSVAGINAL PELVIC ULTRASOUND HISTORY: pelvic pain Left>Right side, hx of ovarian cyst COMPARISON: Ultrasound pelvis from 03/07/2024 Technique: Grayscale and Doppler images of the pelvis were obtained using transabdominal approach. Transvaginal approach was used to better characterize the ovaries. Color Doppler flow and spectral waveform analysis performed FINDINGS: The patient is status post hysterectomy. Right ovary measures 2.1 x 1.0 x 1.3 cm and is sonographically unremarkable. There is an anechoic thin-walled follicle measuring 1.5 x 0.8 x 0.9 cm. Normal arterial and venous waveforms are identified. Left ovary not seen No free fluid. Procedure Note Silvio Santiago MD - 07/09/2025 EXAM: TRANSABDOMINAL AND TRANSVAGINAL PELVIC ULTRASOUND HISTORY: pelvic pain Left>Right side, hx of ovarian cyst COMPARISON: Ultrasound pelvis from 03/07/2024 Technique: Grayscale and Doppler images of the pelvis were obtained usingtransabdominal approach. Transvaginal approach was used to bettercharacterize the ovaries. Color Doppler flow and spectral waveformanalysis performed FINDINGS: The patient is status post hysterectomy. Right ovary measures 2.1 x 1.0 x 1.3 cm and is sonographicallyunremarkable. There is an anechoic thin-walled follicle measuring 1.5 x0.8 x 0.9 cm. Normal arterial and venous waveforms are identified. Left ovary not seen No free fluid. IMPRESSION: 1. Right ovarian follicle 2. Left ovary not seen 3. Status post hysterectomy -------- FINAL REPORT -------- Dictated By: Silvio Santiago Dictated Date: 07/09/2025 17:03 ET Assigned Physician: Silvio Santiago Reviewed and Electronically Signed By: Silvio Santiago Signed Date: 07/09/2025 17:05 ET Workstation ID: [id number] Transcribed By: Self Edit Transcribed Date: 07/09/2025 17:03 ET us Tawny HUITRON IM US PROCEDURES Final Result * US Duplex Abdomen/Pelvis/Retro Limited (07/09/2025 1:55 PM EDT) Anatomical Region Laterality Modality Body Ultrasound 07/09/2025 5:03 PM EDT Impressions 07/09/2025 5:05 PM EDT 1. Right ovarian follicle 2. Left ovary not seen 3. Status post hysterectomy -------- FINAL REPORT -------- Dictated By: Silvio Santiago Dictated Date: 07/09/2025 17:03 ET Assigned Physician: Silvio Santiago Reviewed and Electronically Signed By: Silvio Santiago Signed Date: 07/09/2025 17:05 ET Workstation ID: [id number] Transcribed By: Self Edit Transcribed Date: 07/09/2025 17:03 ET Narrative 07/09/2025 5:05 PM EDT EXAM: TRANSABDOMINAL AND TRANSVAGINAL PELVIC ULTRASOUND HISTORY: pelvic pain Left>Right side, hx of ovarian cyst COMPARISON: Ultrasound pelvis from 03/07/2024 Technique: Grayscale and Doppler images of the pelvis were obtained using transabdominal approach. Transvaginal approach was used to better characterize the ovaries. Color Doppler flow and spectral waveform analysis performed FINDINGS: The patient is status post hysterectomy. Right ovary measures 2.1 x 1.0 x 1.3 cm and is sonographically unremarkable. There is an anechoic thin-walled follicle measuring 1.5 x 0.8 x 0.9 cm. Normal arterial and venous waveforms are identified. Left ovary not seen No free fluid. Procedure Note Silvio Santiago MD - 07/09/2025 EXAM: TRANSABDOMINAL AND TRANSVAGINAL PELVIC ULTRASOUND HISTORY: pelvic pain Left>Right side, hx of ovarian cyst COMPARISON: Ultrasound pelvis from 03/07/2024 Technique: Grayscale and Doppler images of the pelvis were obtained usingtransabdominal approach. Transvaginal approach was used to bettercharacterize the ovaries. Color Doppler flow and spectral waveformanalysis performed FINDINGS: The patient is status post hysterectomy. Right ovary measures 2.1 x 1.0 x 1.3 cm and is sonographicallyunremarkable. There is an anechoic thin-walled follicle measuring 1.5 x0.8 x 0.9 cm. Normal arterial and venous waveforms are identified. Left ovary not seen No free fluid. IMPRESSION: 1. Right ovarian follicle 2. Left ovary not seen 3. Status post hysterectomy -------- FINAL REPORT -------- Dictated By: Silvio Santiago Dictated Date: 07/09/2025 17:03 ET Assigned Physician: Silvio Santiago Reviewed and Electronically Signed By: Silvio Santiago Signed Date: 07/09/2025 17:05 ET Workstation ID: [id number] Transcribed By: Self Edit Transcribed Date: 07/09/2025 17:03 ET [facility] Final Result * Phosphorus (07/01/2025 6:13 AM EDT) Phosphorus 4.0 2.5 - 4.5 mg/dL LAB CHEMISTRY METHOD 07/01/2025 7:35 AM EDT [facility] Blood Venous blood specimen / Unknown Venipuncture / Unknown 07/01/2025 6:13 AM EDT 07/01/2025 6:41 AM EDT Beena GREEN LAB BLOOD ORDERABLES Final Re sult [facility] [address] [place] [address], [place] [phone] * Magnesium (07/01/2025 6:13 AM EDT) [facility] Magnesium 1.9 1.9 - 2.6 mg/dL LAB CHEMISTRY METHOD 07/01/2025 7:35 AM EDT [facility] Blood Venous blood specimen / Unknown Venipuncture / Unknown 07/01/2025 6:13 AM EDT 07/01/2025 6:41 AM EDT Beena GREEN LAB BLOOD ORDERABLES Final Re sult Performing Organization Address City/[facility]/ZIP Co de Phone Number [facility] [address] [place] [address], [place] [phone] * Basic metabolic panel (07/01/2025 6:13 AM EDT) Pathologist [facility] Sodium 138 133 - 145 mmol/L LAB CHEMISTRY METHOD 07/01/2025 7:35 AM EDT [facility] Potassium 4.1 3.5 - 5.5 mmol/L LAB CHEMISTRY METHOD 07/01/2025 7:35 AM EDT [facility] Chloride 103 96 - 110 mmol/L LAB CHEMISTRY METHOD 07/01/2025 7:35 AM EDT [facility] CO2 29 21 - 32 mmol/L LAB CHEMISTRY METHOD 07/01/2025 7:35 AM T [facility] Anion Gap 6 3 - 11 LAB CHEMISTRY METHOD 07/01/2025 7:35 AM [facility] Glucose 87 70 - 100 mg/dL LAB CHEMISTRY METHOD 07/01/2025 7:35 AM [facility] BUN 6 5 - 25 mg/dL LAB CHEMISTRY METHOD 07/01/2025 7:35 AM [facility] Creatinine 0.64 0.50 - 1.10 mg/dL LAB CHEMISTRY METHOD 07/01/2025 7:35 AM [facility] eGFR 110 >=60 mL/min/1. 73m2 LAB CHEMISTRY METHOD 07/01/2025 7:35 AM [facility] Comment:Calculation based on the Chronic Kidney Disease Epidemiology Collaboration (CKD-EPI) equation refit without adjustment for race. BUN/Creatinine Ratio 9.4 LAB CHEMISTRY METHOD 07/01/2025 7:35 AM [facility] Calcium 8.9 8.5 - 10.5 mg/dL LAB CHEMISTRY METHOD 07/01/2025 7:35 AM [facility] Blood Venous blood specimen / Unknown Venipuncture / Unknown 07/01/2025 6:13 AM EDT 07/01/2025 6:41 AM EDT Beena GREEN LAB BLOOD ORDERABLES Final Re sult [facility] [address] [place] [address], * TH AN ENDOTRACHEAL(NO CHARGE) (06/30/2025 10:40 AM EDT) Narrative Alexander Mahan SRNA - 06/30/2025 10:40 AM EDT TUNG Monge 06/30/2025 10:40 AM General Information and Staff Patient location during procedure: OR Other anesthesia staff: TUNG Monge Performed: other anesthesia staff Performed by: TUNG Monge Authorized by: Spring Vega MD Intubation Airway not difficult Urgency: elective Final Airway Details Successful airway: ETT Cuffed: yes Successful intubation technique: direct laryngoscopy Facilitating devices/methods: anterior pressure/BURP Endotracheal tube insertion site: oral Blade: Tomeka Blade size: #3 ETT size (mm): 7.5 Cormack-Lehane Classification: grade IIa - partial view of glottis Placement verified by: chest auscultation, capnometry and palpation of cuff Measured from: gums ETT to gums (cm): 21 Number of attempts at approach: 1 Ventilation between attempts: none Number of other approaches attempted: 0Final airway type: endotracheal airway Indications and Patient Condition Indications for airway management: anesthesia Spontaneous Ventilation: absent Sedation level: Yes Preoxygenated: yes Soft Tissue Damage: No Dentition Unchanged: Yes Patient position: neutral MILS maintained throughout Mask difficulty assessment: 2 - vent by mask + OA or adjuvant +/- NMBA us Spring Vega MD ANESTHESIA ORDERABLES Final Resu lt * Type and screen (06/30/2025 9:12 AM EDT) Only the most recent of2 resultswithin the time period is included. ABO Group A 06/30/2025 10:49 AM EDT [facility] Rh Type Positive 06/30/2025 10:49 AM EDT [facility] Antibody Screen Negative 06/30/2025 10:49 AM EDT [facility] Blood Venous blood specimen / Unknown Venipuncture / Unknown 06/30/2025 9:12 AM EDT 06/30/2025 9:19 AM EDT Mily Cardenas MD LAB BLOOD BANK TEST ORD ERABLES Final Result [facility] [address] [place] [address], * Trichomonas vaginalis antigen (06/24/2025 9:32 AM EDT) Trichomonas vaginalis Negative Negative 06/24/2025 4:49 PM EDT [facility] Swab Vaginal structure / Unknown Non-blood Collection / Unknown 06/24/2025 9:32 AM EDT 06/24/2025 3:45 PM EDT us Tawny HUITRON LAB MICROBIOLOGY - GENERAL ORD ERABLES Final Result [facility] [address] [place] [address], [place] [phone] * Chlamydia trachomatis and Neisseria gonorrhoeae molecular study (06/24/2025 9:32 AM EDT) Pathologist [facility] Neisseria gonorrhoeae PCR Negative Negative LAB MOLECULAR DIAGNOSTICS METHOD 06/25/2025 1:47 PM EDT [facility] Chlamydia trachomatis PCR Negative Negative LAB MOLECULAR DIAGNOSTICS METHOD 06/25/2025 1:47 PM EDT [facility] Swab Cervix uteri structure / Unknown Non-blood Collection / Unknown 06/24/2025 9:32 AM EDT 06/24/2025 3:45 PM EDT us Tawny HUITRON LAB MICROBIOLOGY - GENERAL ORD ERABLES Final Result [facility] [address] [place] [address], [place] [phone] * (ABNORMAL) Wet prep, genital (06/24/2025 9:32 AM EDT) Clue Cells, Wet Prep Negative Negative 06/24/2025 4:43 PM EDT [facility] Yeast, Wet Prep Positive(A) Negative 06/24/2025 4:43 PM EDT [facility] Trichomonas, Wet Prep Indeterminate Negative 06/24/2025 4:43 PM EDT [facility] Comment:Refer to Trichomonas antigen. Swab Vaginal structure / Unknown Non-blood Collection / Unknown 06/24/2025 9:32 AM EDT 06/24/2025 3:45 PM EDT Tawny Arriaga [facility] MICROBIOLOGY - GENERAL ORD ERABLES Final Result Performing Organization Address City/[facility]/ZIP Co de Phone Number [facility] [address] [place] [address], [place] [phone] * Culture urine (06/24/2025 9:32 AM EDT) Only the most recent of2 resultswithin the time period is included. Culture, Urine 10,000-49,000 CFU/mL Mixed urogenital aram, no uropathogens present. Suggest repeat specimen if clinically indicated. 06/25/2025 8:57 AM EDT [facility] Urine Urine specimen obtained by clean catch procedure / Unknown Non-blood Collection / Unknown 06/24/2025 9:32 AM EDT 06/24/2025 3:47 PM EDT Tawny Arriaga [facility] MICROBIOLOGY - GENERAL ORD ERABLES Final Result Performing Organization Address [facility]/ZIP Co de Phone Number [facility] [address] [place] [address], [place] [phone] * Activated partial thromboplastin time (06/22/2025 10:47 AM EDT) aPTT 33.4 24.1 - 39.3 sec LAB COAGULATION METHOD 06/22/2025 12:21 PM EDT [facility] Blood Venous blood specimen / Unknown Venipuncture / Unknown 06/22/2025 10:47 AM EDT 06/22/2025 12:09 PM EDT Mily Cardenas MD LAB BLOOD ORDERABLES Fi nal Result [facility] [address] [place] [address], [place] [phone] * (ABNORMAL) Urinalysis with reflex microscopic (05/27/2025 8:06 PM EDT) Specific [place] Urine 1.024 1.003 - 1.030 LAB URINALYSIS - AUTOMATED METHOD 05/27/2025 8:58 PM EDT [facility] pH, Urine 5.5 5.0 - 8.0 pH LAB URINALYSIS - AUTOMATED METHOD 05/27/2025 8:58 PM [facility] Leukocytes, Urine Negative Negative LAB URINALYSIS - AUTOMATED METHOD 05/27/2025 8:58 PM [facility] Nitrite, Urine Negative Negative LAB URINALYSIS - AUTOMATED METHOD 05/27/2025 8[facility] Protein, Urine 30(A) <=Trace mg/dL LAB URINALYSIS - AUTOMATED METHOD 05/27/2025 8:58 PM [facility] Glucose, Urine Negative Negative mg/dL LAB URINALYSIS - AUTOMATED METHOD 05/27/2025 8:58 PM [facility] Ketones, Urine 40(A) Negative mg/dL LAB URINALYSIS - AUTOMATED METHOD 05/27/2025 8:58 [facility] Urobilinogen, Urine 1.0 0.2 - 1.0 mg/dL LAB URINALYSIS - AUTOMATED METHOD 05/27/2025 8:58 PM [facility] Bilirubin, Urine Negative Negative LAB URINALYSIS - AUTOMATED METHOD 05/27/2025 8:58 PM [facility] Blood, Urine Negative Negative LAB URINALYSIS - AUTOMATED METHOD 05/27/2025 8:58 PM [facility] RBC, Urine 4.0 0 - 4 /HPF LAB URINALYSIS - AUTOMATED METHOD 05/27/2025 8:58 PM EDT [facility] WBC, Urine 4.2(H) 0 - 4 /HPF LAB URINALYSIS - AUTOMATED METHOD 05/27/2025 8:58 PM EDT [facility] Squamous Epithelial, Urine >100(H) 0 - 60 /LPF LAB URINALYSIS - AUTOMATED METHOD 05/27/2025 8:58 PM EDT [facility] Bacteria, Urine Few(A) Negative /HPF LAB URINALYSIS - AUTOMATED METHOD 05/27/2025 8:58 PM EDT [facility] Hyaline Casts, Urine 5.0(H) 0 - 3 /LPF LAB URINALYSIS - AUTOMATED METHOD 05/27/2025 8:58 PM EDT [facility] Mucus, Urine Moderate None /HPF 05/27/2025 8:58 PM EDT [facility] Urine Urine specimen obtained by clean catch procedure / Unknown Non-blood Collection / Unknown 05/27/2025 8:06 PM EDT 05/27/2025 8:18 PM EDT us Nataliia Gallardo MD LAB URINE ORDERABLES Final Resul t [facility] [address] [place] [address], * POC , urine manually resulted (05/27/2025 8:06 PM EDT) HCG, Ur POC Negative Negative POC hCG Int QC Pass? Yes Yes Urine Urine specimen obtained by clean catch procedure / Unknown 05/27/2025 8:06 PM EDT us Nataliia Gallardo MD POINT OF CARE TEST ENTER/EDIT OR DERABLES Final Result * XR UGI w Air Contrast (05/13/2025 8:22 AM EDT) Anatomical Region Laterality Modality Body Radiographic Leigh ging 05/13/2025 9:59 AM EDT Impressions 05/13/2025 10:16 AM EDT Small, sliding, axial hiatal hernia without visualized gastroesophageal reflux, otherwise normal double contrast upper GI exam. -------- FINAL REPORT -------- Dictated By: Joelle Francisco Dictated Date: 05/13/2025 09:59 ET Assigned Physician: Issac Zamora Reviewed and Electronically Signed By: Issac Zamora Signed Date: 05/13/2025 10:16 ET Workstation ID: [id number] Transcribed By: Self Edit Transcribed Date: 05/13/2025 10:08 ET Resident/PA/POOLING OPERATOR: Joelle Francisco Narrative 05/13/2025 10:16 AM EDT FINDINGS: Double contrast UGI performed. COMPARISON: No prior upper GI; CT abdomen and pelvis without contrast March 27, 2025 reviewed. HISTORY: Patient is a 44-year-old female with history of GERD. Hiatal hernia. 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 Bowel gas pattern is nonobstructive. Visualized lung bases appear clear. There is slight levoscoliosis of the lumbar spine. Mild bony degenerative changes are noted. FINDINGS: Effervescent crystals were administered orally. Thick and thin barium was then administered orally under fluoroscopic control. Esophagus: Normal distensibility, motility and mucosal pattern. There is no evidence of obstruction. There is a small, sliding, axial hiatal hernia. Stomach: Normal distensibility and motility. Prompt passage of contrast from the stomach into the duodenal bulb and sweep. No gastric mass or ulceration. Visualization of proximal small bowel is within normal limits. Gastroesophageal reflux: Unable to elicit DAP: 8.06 Gycm^2 Procedure Note Issac Zamora MD - 05/13/2025 FINDINGS: Double contrast UGI performed. COMPARISON: No prior upper GI; CT abdomen and pelvis without contrast 2024 reviewed. HISTORY: Patient is a 44-year-old female with history of GERD. Hiatalhernia. 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 Bowel gaspattern is nonobstructive. Visualized lung bases appear clear. There isslight levoscoliosis of the lumbar spine. Mild bony degenerative changesare noted. FINDINGS: Effervescent crystals were administered orally. Thick and thinbarium was then administered orally under fluoroscopic control. Esophagus: Normal distensibility, motility and mucosal pattern. There isno evidence of obstruction. There is a small, sliding, axial hiatalhernia. Stomach: Normal distensibility and motility. Prompt passage of contrastfrom the stomach into the duodenal bulb and sweep. No gastric mass orulceration. Visualization of proximal small bowel is within normal limits. Gastroesophageal reflux: Unable to elicit DAP: 8.06 Gycm^2 IMPRESSION: Small, sliding, axial hiatal hernia without visualized gastroesophagealreflux, otherwise normal double contrast upper GI exam. -------- FINAL REPORT -------- Dictated By: Joelle Francisco Dictated Date: 05/13/2025 09:59 ET Assigned Physician: Issac Zamora Reviewed and Electronically Signed By: Issac Zamora Signed Date: 05/13/2025 10:16 ET Workstation ID: [id number] Transcribed By: Self Edit Transcribed Date: 05/13/2025 10:08 ET Resident/PA/POOLING OPERATOR: Joelle Francisco Mily Cardenas MD IMG FLUOROSCOPY PROCEDU RES Final Result * (ABNORMAL) Urinalysis with reflex microscopic and culture (04/27/2025 5:11 AM EDT) Specific [place] Urine 1.029 1.003 - 1.030 LAB URINALYSIS - AUTOMATED METHOD 04/27/2025 5:47 AM [facility] pH, Urine 6.0 5.0 - 8.0 pH LAB URINALYSIS - AUTOMATED METHOD 04/27/2025 5:47 AM [facility] Leukocytes, Urine Trace(A) Negative LAB URINALYSIS - AUTOMATED METHOD 04/27/2025 5:47 AM [facility] Nitrite, Urine Negative Negative LAB URINALYSIS - AUTOMATED METHOD 04/27/2025 5:47 AM [facility] Protein, Urine Trace <=Trace mg/dL LAB URINALYSIS - AUTOMATED METHOD 04/27/2025 5:47 AM [facility] Glucose, Urine Negative Negative mg/dL LAB URINALYSIS - AUTOMATED METHOD 04/27/2025 5:47 AM [facility] Ketones, Urine Trace(A) Negative mg/dL LAB URINALYSIS - AUTOMATED METHOD 04/27/2025 5:47 AM [facility] Urobilinogen, Urine 1.0 0.2 - 1.0 mg/dL LAB URINALYSIS - AUTOMATED METHOD 04/27/2025 5:47 AM [facility] Bilirubin, Urine Negative Negative LAB URINALYSIS - AUTOMATED METHOD 04/27/2025 5:47 AM [facility] Blood, Urine Negative Negative LAB URINALYSIS - AUTOMATED METHOD 04/27/2025 5:47 AM [facility] RBC, Urine 2.7 0 - 4 /HPF LAB URINALYSIS - AUTOMATED METHOD 04/27/2025 5:47 AM [facility] WBC, Urine 5.0(H) 0 - 4 /HPF LAB URINALYSIS - AUTOMATED METHOD 04/27/2025 5:47 AM [facility] Squamous Epithelial, Urine 53 0 - 60 /LPF LAB URINALYSIS - AUTOMATED METHOD 04/27/2025 5:47 AM [facility] Bacteria, Urine Negative Negative /HPF LAB URINALYSIS - AUTOMATED METHOD 04/27/2025 5:47 AM [facility] Hyaline Casts, Urine 7.6(H) 0 - 3 /LPF LAB URINALYSIS - AUTOMATED METHOD 04/27/2025 5:47 AM [facility] Urine Urine specimen obtained by clean catch procedure / Unknown Non-blood Collection / Unknown 04/27/2025 5:11 AM EDT 04/27/2025 5:38 AM EDT Ruthie Clark LAB URINE ORDERABLES Anjali l Result Performing Organization Address City/[facility]/ZIP Co de Phone Number [facility] [address] [place] [address], [place] [phone] * Jett urine culture tube (04/27/2025 5:11 AM EDT) Pathologist [facility] Extra Tube Hold for add-ons. 04/27/2025 7:01 AM EDT [facility] Comment:Auto resulted. Urine Urine specimen obtained by clean catch procedure / Unknown Non-blood Collection / Unknown 04/27/2025 5:11 AM EDT 04/27/2025 5:38 AM EDT us Ruthie Clark LAB URINE ORDERABLES Anjali l Result Performing Organization Address [facility] Co de Phone Number [facility] [address] [place] [address], [place] [phone] * HIV Screening (02/01/2022) HIV Screening Abstracted Historical Provider HEALTH MAINTENANCE Final Result * Hepatitis C Screening (02/01/2022) Hepatitis C Screening Abstracted Historical Provider HEALTH MAINTENANCE Final Result from Last 3 Months or Most Recently Relevant to Health Maintenance Insurance MEDICAID - [place] Advance Directives * Full Code - Default (Latest Code Status on File) Date Activated Date Inactivated Comments 06/30/2025 1:04 PM 07/01/2025 6:10 PM This is order is used when code status has not been discussed with the patient, or code status is otherwise unknown/unconfirmed To update the patient's code status, place a code status order. Do not modify or discontinue any currently active code status orders. * Full Code - Default Date Activated Date Inactivated Comments 06/30/2025 8:45 AM 06/30/2025 1:04 PM This is order is used when code status has not been discussed with the patient, or code status is otherwise unknown/unconfirmed To update the patient's code status, place a code status order. Do not modify or discontinue any currently active code status orders. Care Teams Principle Software Engineer Relationship Specialty Start Date End Date Evy Christopher NP [address] [place] [id number] PCP - General 10/26/24
--- OUTSIDE RECORDS SUMMARY | 2025-07-24 13:13 | XMS_ITS | Encounter Summary ---
Author Organization [employer] Address [address] [facility] [address] [place] [address] Care Team Providers Care Appeals Assistant Name Role Phone Evy Christopher Primary Care Provider Romeo Echavarria RN Unavailable [phone] Romeo Echavarria RN Unavailable [phone] Scar Pimentel RN Unavailable [phone] Tawny Frias Unavailable Reason for Visit * Reason Comments Med Refill Encounter Details Date Type Department Care Team (Late st Contact Info) Description 10/26/2024 Refill [facility] [address] [place], [place] [phone] Evy Christopher ANP [address] [place], [place] [phone] Social History Tobacco Use Types Packs/Day Years [...] Description 07/27/2025 1:45 PM EDT Office Visit [facility] [address] [place] [phone] Chantelle Mitchell FNP [address] [place] [phone] 10/02/2025 11:45 AM EST Office Visit [facility] [address] [place] [phone] Clarence Anderson MD [address] [place] [phone] documented as of this encounter Visit Diagnoses Not on filedocumented in this encounter Additional Health Concerns Assessment Noted Time PHQ-9 Depression Total Score: 2 05/23/20 24 9:49 AM EDT documented as of this encounter Care Teams Appeals Assistant Relationship Specialty Start Date End Date Evy Christopher ANP [address] [place] [address] PCP - General Family Medicine 06/20/21 Romeo Echavarria, RN [address] [place] [address] French Binding FolderBiofuels Production Technician 12/25/24 05/07/25 Romeo Echavarria, SUKHWINDER [address] [place] [address] Registered Nurse Family Medicine 04/28/25 04/28/25 Scar Pimentel, SUKHWINDER [address] [place] [address] Registered Nurse Family Medicine 07/13/25 Tawny Frias 07/13/25 documented as of this encounter
--- OUTSIDE RECORDS SUMMARY | 2025-07-24 13:13 | XMS_ITS | Encounter Summary ---
Author Organization [facility] Address [address] [place] [address] Care Team Providers Care Bit Sharpener Operator Name Role Phone Evy Christopher NP Primary Care Provider Reason for Visit * Reason Onset Date Comments Results 06/25/2025 Encounter Details Date Type Department Care Team ([facility] st Contact Info) Description 06/25/2025 Telephone Obstetrics and Gynecology - [address] [phone] Ifeoma Pfeiffer MA Social History Tobacco Use Types Packs/Day Years [...] hearing? Answer Date of Assessment Author No 05/27/2025 6:42 PM BAILEYT Tammi Robb RN * Are you blind or do you have serious difficulty seeing, even when wearing glasses? Answer Date of Assessment Author No 05/27/2025 6:42 PM Tammi Jeter RN * Do you have serious difficulty walking or climbing stairs? Answer Date of Assessment Author No 05/27/2025 6:42 PM Tammi Jeter RN * Do you have serious difficulty dressing or bathing? Answer Date of Assessment Author No 05/27/2025 6:42 PM EDT Tammi Robb RN * Because of a physical, mental, or emotional condition, do you have serious difficulty doing errandsalone such as visiting the doctor? Answer Date of Assessment Author No 05/27/2025 6:42 PM EDT Tammi Robb RN documented as of this encounter Mental Status * Because of a physical, mental, or emotional condition, do you have serious difficulty concentrating, remembering, or making decisions? (5 years old or older) Answer Entry Date Author No 05/27/2025 6:42 PM EDT Tammi Robb RN documented in this encounter Progress Notes * Ifeoma Pfeiffer MA - 06/25/2025 10:00 AM EDT Left message for patient. * Ifeoma Pfeiffer MA - 06/25/2025 10:00 AM EDT ----- Message from Beata Arriaga CNM sent at 06/24/2025 10:23 PM EDT ----- Please call pt with results, pos for yeast. BV and trichomonas are negative. Treatment sent. This could be causing her pelvic pain. Tawny Arriaga CNM documented in this encounter Plan of Treatment Upcoming Encounters Date Type Department Care Team (Late st Contact Info) Description 07/29/2025 3:00 PM EDT Office Visit Bariatric Surgery [address] [phone] Mily Cardenas MD [address] [place] [phone] 12/17/2025 10:15 AM EST Office Visit Bariatric Surgery [address] [phone] Paul Rod MD [address] [place] [phone] documented as of this encounter Visit Diagnoses Not on filedocumented in this encounter Care Teams Bit Sharpener Operator Relationship Specialty Start Date End Date Evy Christopher NP [address] [place] [phone] PCP - General 10/26/24 documented as of this encounter
--- OUTSIDE RECORDS SUMMARY | 2025-07-24 13:13 | XMS_ITS ---
Author Organization [employer] Address [address] [facility] 7t [place] [address] Care Team Providers Care Steel Plate Caulker Name Role Phone Evy Christopher Primary Care Provider [phone] Scar Pimentel RN Unavailable [phone] Tawny Frias Unavailable CM Complex Status:Outreach In Progress (Enrolling) Start date:07/13/2025 Enrollment reason:ADT Feed Overview ED- Pt went to [facility] ED on 07/10/25. Case Team Name Relationship Phone Scar Pimentel RN(Responsible Staff) Registered Nurse [phone] Continued Care and Services Coordination
--- OUTSIDE RECORDS SUMMARY | 2025-07-24 13:13 | XMS_ITS | Encounter Summary ---
Author Organization [email or web address] Address [address] [facility] 7t [place] [address] Care Team Providers Care Merchandise Deliverer Name Role Phone Evy Christopher ANP Primary Care Provider [phone] Scar Pimentel RN Unavailable [phone] Tawny Frias Unavailable Reason for Visit * Reason Comments Med Refill Encounter Details Date Type Department Care Team (Late st Contact Info) Description 07/06/2025 Refill [facility] [address] [place], [place] [phone] Evy Christopher ANP [address] [place] [address] SHANNA (generalized anxiety disorder) Social History Tobacco Use Types Packs/Day Years [...] Description 07/27/2025 1:45 PM EDT Office Visit [facility] [address] [place] [phone] Chantelle Mitchell FNP [address] [place] [phone] 10/02/2025 11:45 AM EST Office Visit [facility] [address] [place] [phone] Clarence Anderson MD [address] [place] [phone] documented as of this encounter Visit Diagnoses Diagnosis SHANNA (generalized anxiety disorder) Generalized anxiety disorder documented in this encounter Additional Health Concerns Assessment Noted Time PHQ-9 Depression Total Score: 0 04/02/20 25 11:38 AM EDT documented as of this encounter Care Teams Merchandise Deliverer Relationship Specialty Start Date End Date Evy Christopher ANP [address] [place] [address], [place] [address] PCP - General Family Medicine 06/20/21 Scar Pimentel RN [address] [place] [address] Registered Nurse Family Medicine 07/13/25 Tawny Frias 07/13/25 documented as of this encounter
[2025-07-24 13:55] VITALS: RESP 18
[2025-07-24 14:10] VITALS: BP 158/87; PULSE 64; RESP 14; TEMP 36.6; O2SAT 99
[2025-07-24 16:02] VITALS: RESP 18
[2025-07-24 16:06] VITALS: BP 142/82; PULSE 72; RESP 18; TEMP 36.8; O2SAT 95
[2025-07-24 16:15] VITALS: BP 142/82; PULSE 72; RESP 18; TEMP 36.8; O2SAT 95
== END 2025-07-24 16:21 | disposition home or self-care (01) ==
PROVIDERS: Physician Assistant; Emergency Provider Emergency Medicine Emergency Medical Services; PCP Nurse Practitioner Primary Care
DX: R10.9 Unspecified abdominal pain (principal); M54.9 Dorsalgia, unspecified; G89.4 Chronic pain syndrome; Z87.442 Personal history of urinary calculi; Z90.49 Acquired absence of other specified parts of digestive tract; Z79.899 Other long term (current) drug therapy
CPT/HCPCS: 36415; 76775; 80048; 80076; 81001; 83690; 84702; 85025; 96361; 96374; 96375; 96376; 99284; J1171; J2405

== ENCOUNTER → 2025-07-24 13:40 | Outpatient (BNV) | payer MEDICAID, SELFPAY | PROVIDERS: Emergency Provider Emergency Medicine Emergency Medical Services; PCP Nurse Practitioner Primary Care; Visit Provider Radiology Diagnostic Radiology | DX: N20.0 Calculus of kidney (principal) | CPT/HCPCS: 76775 ==

== ENCOUNTER 2025-08-31 08:11 | Outpatient (REF) | payer MEDICAID, SELFPAY ==
[2025-08-31 12:21] LABS: Alanine Aminotransferase 24 U/L (0-31); Albumin Level 4.0 g/dL (3.5-5.0); Alkaline Phosphatase 72 U/L (39-117); Anion Gap 8 (12-20); Aspartate Amino Transferase 39 U/L (5-31); Blood Urea Nitrogen 8 mg/dL (9-16); Calcium 8.9 mg/dL (8.4-10.2); Carbon Dioxide 28 mmol/L (22-29); Chloride 106 mmol/L (96-108); Cholesterol 274 mg/dL (<200); Estimated Glomerular Filt Rate > 60; HDL Cholesterol 45 mg/dL (>40); Lipase 29 U/L (8-78); Potassium 4.2 mmol/L (3.3-5.1); Sodium 138 mmol/L (135-145); Total Protein 6.9 g/dL (6.5-8.0); Triglycerides 199 mg/dL (<150)
== END 2025-08-31 08:12 | disposition home or self-care (01) ==
LOC: HO.HHCL 08:11
PROVIDERS: PCP Nurse Practitioner Primary Care; Visit Provider Nurse Practitioner Primary Care
DX: K86.1 Other chronic pancreatitis (principal); E78.5 Hyperlipidemia, unspecified
CPT/HCPCS: 36415; 80053; 80061; 83690

== ENCOUNTER 2025-09-15 12:29 | Outpatient (REF) | payer MEDICAID, SELFPAY ==
--- NOTE | ~2025-09-15 | MM_ITS ---
EXAMINATION(S): MM DIAGNOSTIC DIGITAL BREAST TOMOSYNTHESIS, BILATERAL CLINICAL INFORMATION: Bilateral breast pain. According to patient, pain in the lateral and medial aspect for one month. COMPARISON: Comparison made to multiple prior, most recent November 17, 2024, and most remote September 29, 2022. TECHNIQUE: Digital breast tomosynthesis is performed in both the mediolateral oblique and craniocaudal views along with computer-aided detection (CAD). Digital breast tomosynthesis is performed in implant-displaced craniocaudal and implant-displaced mediolateral oblique views along with computer-aided detection CAD). Synthesized 2D images are generated from the tomosynthesis. FINDINGS: BREAST COMPOSITION: The breasts are heterogeneously dense, which may obscure small masses. RIGHT BREAST: Retropectoral saline implant is intact. No significant masses, suspicious calcifications or other abnormalities are seen. LEFT BREAST: Retropectoral saline implant is intact. No significant masses, suspicious calcifications or other abnormalities are seen. MM/MM tomosynthesis diag imp BI IMPRESSION: BILATERAL BREASTS: Benign, no mammographic evidence of malignancy. However, the patient was not able to stay for the scheduled bilateral targeted ultrasound. The bilateral targeted ultrasound to evaluated the bilateral focal pain will be rescheduled. ASSESSMENT: BI-RADS: Category 0: Incomplete - Need additional Imaging Evaluation RECOMMENDATION: Additional Imaging required (bilateral targeted ultrasounds). Results were provided to the patient at time of visit by the technologist. This patient's information was entered into a reminder system with a target due date for their next mammogram. Electronically signed by: Hua Collins MD 09/15/2025 03:57 PM [place]
== END 2025-09-15 12:30 | disposition home or self-care (01) ==
LOC: HO.MAMMO 12:29
PROVIDERS: PCP Nurse Practitioner Primary Care; Visit Provider Nurse Practitioner Primary Care
DX: N64.4 Mastodynia (principal)
CPT/HCPCS: 77062; 77066

== ENCOUNTER → 2025-09-15 13:00 | Outpatient (BNV) | payer MEDICAID, SELFPAY | PROVIDERS: PCP Nurse Practitioner Primary Care; Visit Provider Radiology Body Imaging | DX: N64.4 Mastodynia (principal) | CPT/HCPCS: 77062; 77066 ==

== ENCOUNTER 2025-09-16 09:58 | Outpatient (REF) | payer MEDICAID, SELFPAY ==
--- OUTSIDE RECORDS SUMMARY | 2024-08-25 05:20 | XMS_ITS ---
Author Organization [facility] Address [address] [place] [phone] Care Team Providers Care Animal Feeder Name Role Phone TREVOR MEDINA N.P. Primary Care Provider Jada Garrison Jr, Giovany Fitch [phone] REASON FOR VISIT Patient presents today for ABD PAIN Encounters Encounter Location Date Provider Diagnosis [facility] [address] [place] [phone] 08/25/2024 Giovany Garrison Jr Plan Of Treatment No Information Progress Notes * JOSEPH COLINDOB:1980 ([age] yo F)Acc No.[id number]:08/25/2024 Progress Notes Patient: JOSEPH KYLE Provider: Fatuma Garrison MD :1980 A ge:44 Y S ex:Female Date:08/25/2024 Address:[address] [place], [place] [id number] Pcp:TREVOR MEDINA N.P. Subjective: * Chief Complaints: * P atient presents today for ABD PAIN Billing Information: * Procedure Codes: * The named appointment provid er may or may not be the originator of this progress note, and it is not deemed complete until electronically signed by the appointment provider. Sign off status: Pending * Provider: Fatuma Garrison MD Date: Generated for Elton mccann/Eligio/Chrisitting on: 11/16/2024 06:42 PM EST
--- OUTSIDE RECORDS SUMMARY | 2025-09-15 07:20 | XMS_ITS | Encounter Summary ---
Author Organization [facility] Address [address] [place] [address] Care Team Providers Care Signal Maintainer Name Role Phone Evy Christopher NP Primary Care Provider [phone] Reason for Visit * Imaging (Routine) - Authorized Specialty Diagnoses / Procedures Referred By Brennon t Referred To Contact Radiology Diagnoses Hx of hiatal hernia Food intolerance Procedures XR UGI w Single Contrast Mily Cardenas MD [address] [place] [address] Phone: tel: fax: [facility] CT Scan [address] [place] [address] Phone: tel: Referral ID Status Reason Start Date Expiration Date V isits Requested Visits Authorized [id number] Authorized 07/29/2025 07/29/2026 1 1 Encounter Details Date Type Department Care Team (Latest Contact Info) Description 09/15/2025 7:20 AM EST - 09/15/2025 11:59 PM EST Hospital Encounter [facility] Xray [address] [place] [address] Arrived Discharge Disposition: Home or Self Care Social History Tobacco Use Types Packs/Day Years Used Date Smoking Tobacco: Never Smokeless Tobacco: Never Alcohol Use Standard Drinks/Week Comments No 0 (1 standard drink = 0.6 oz pur e alcohol) Interpersonal Safety Answer Date Record ed Physical Abuse Unrecognized value 06/30/2025 Verbal Abuse Unrecognized value 06/30/2025 Comments No Sex and Gender Information [...] 6:42 PM EDT Tammi Robb RN * Are you blind or do you have serious difficulty seeing, even when wearing glasses? Answer Date of Assessment Author No 05/27/2025 6:42 PM EDTammi Kerr RN * Do you have serious difficulty walking or climbing stairs? Answer Date of Assessment Author No 05/27/2025 6:42 PM BAILEYT Tammi Robb RN * Do you have serious difficulty dressing or bathing? Answer Date of Assessment Author No 05/27/2025 6:42 PM BAILEYT Tammi Robb RN * Because of a physical, mental, or emotional condition, do you have serious difficulty doing errandsalone such as visiting the doctor? Answer Date of Assessment Author No 05/27/2025 6:42 PM Tammi Jeter RN documented as of this encounter Mental Status * Because of a physical, mental, or emotional condition, do you have serious difficulty concentrating, remembering, or making decisions? (5 years old or older) Answer Entry Date Author No 05/27/2025 6:42 PM Tammi Jeter RN documented in this encounter Medications at Time of Discharge ALPRAZolam (XANAX) 0.5 mg tablet 03/04/2024 BD Alcohol Swabs pads, medicated USE TO CHECK BLOOD SUGAR EVERY MORNING DIRECTED. 07/03/2024 blood sugar diagnostic (FreeStyle Lite Strips) test strip USE TO CHECK FASTING SUGAR IN THE MORNING OR NEEDED FOR SYMPTOMS 07/03/2024 EPINEPHrine (EPIPEN) 0.3 mg/0.3 mL injection Inject 0.3 mL (0.3 mg total) as directed. 04/21/2024 FREESTYLE LANCETS MISC USE DIRECTED TO CHECK BLOOD SUGAR EVERY MORNING OR WHEN SYMPTOMATIC 08/17/2021 oxyCODONE (ROXICODONE) 5 mg immediate release tablet Take 1 tablet (5 mg total) by mouth every 4 (four) hours if needed for severe pain. Max Daily Amount: 30 mg 12 tablet 07/01/2025 simethicone (MYLICON) 80 mg chewable tablet Chew 1 tablet (80 mg total) 4 (four) times a day if needed for flatulence (gas pain). 20 tablet 07/01/2025 tirzepatide, weight loss, (Zepbound) 12.5 mg/0.5 mL injection Inject 0.5 mL (12.5 mg total) under the skin every 7 (seven) days. 2 mL 09/03/2025 documented as of this encounter Discharge Disposition Disposition Code Departure Means Destination Home or Self Care documented in this encounter Plan of Treatment Upcoming Encounters Date Type Department Care Team (Late st Contact Info) Description 10/05/2025 9:15 AM EST Office Visit Bariatric Surgery [address] [phone] Mily Cardenas MD [address] [place] [phone] 12/17/2025 10:15 AM EST Office Visit Bariatric Surgery [address] [phone] Paul Rod MD [address] [place] [phone] documented as of this encounter Procedures Procedure Name Priority Date/Time Associated Diagnosis Comments XR UGI W SINGLE CONTRAST Routine 09/15/2025 8:41 AM EST Hx of hiatal hernia Food intolerance documented in this encounter Visit Diagnoses Not on filedocumented in this encounter Administered Medications Inactive Administered Medications - up to 3 most recent administrations Medication Order MAR Action Action Date Dose Rate Site barium sulfate (E-Z-PAQUE) 96 % (w/w) suspension 100 mL 100 mL, oral, Once in imaging, Starting on Sun09/15/25 at 0840, For 1 dose Given 09/15/2025 8:42 AM EST 100 mL documented in this encounter Orders Medications Ordered That Star ht Not Have Been Administered Count Last Ordered Date First Ordered Date barium sulfate (E-Z-PAQUE) 9 6 % (w/w) suspension 100 mL 1 09/15/2025 documented in this encounter Care Teams Signal Maintainer Relationship Specialty Start Date End Date Evy Christopher, CARYL [address] [place] [address] PCP - General 10/26/24 documented as of this encounter
--- NOTE | ~2025-09-16 | US_ITS ---
EXAMINATION: US DIAGNOSTIC ULTRASOUND BREAST, BILATERAL CLINICAL INFORMATION: Bilateral lower outer quadrant pain for one month. Patient came in for diagnostic mammography yesterday with benign findings.. COMPARISON: Comparison is made with relevant prior imaging. TECHNIQUE: Ultrasound of the breast is performed with real-time ivory scale imaging and color Doppler. FINDINGS: Targeted color Doppler ultrasound scanning in the lower outer quadrant of the right breast images normal fibronodular breast tissue. There is no sonographic abnormal findings. Targeted color Doppler ultrasound scanning in the lower outer quadrant of the left breast demonstrates normal fibronodular breast tissue. There is no sonographic abnormal finding. Results are discussed with the patient at time of visit. US/US Breast BI Limited Mamm Only IMPRESSION: No sonographic abnormal finding bilateral lower outer quadrants to account for the patient's breast pain. Recent diagnostic mammogram yesterday was benign. Recommend clinical evaluation and follow-up. ASSESSMENT: BI-RADS 1: Negative RECOMMENDATION: Recommend clinical evaluation and followup This patient's information was entered into a reminder system with a target due date for their next mammogram. Electronically signed by: Milla Craig DO 09/16/2025 11:21 AM [facility]
--- OUTSIDE RECORDS SUMMARY | 2025-09-16 18:43 | XMS_ITS | Encounter Summary ---
Author Organization [employer] Address [address] [facility] [address] [place] [address] Care Team Providers Care Lower In Supervisor Name Role Phone Evy Christopher Primary Care Provider Romeo Echavarria RN Unavailable [phone] Romeo Echavarria RN Unavailable [phone] Scar Pimentel RN Unavailable [phone] Tawny Frias Unavailable Reason for Visit * Reason Onset Date Comments Returning Call 03/14/2024 Encounter Details Date Type Department Care Team (Late st Contact Info) Description 03/14/2024 Telephone [facility] [address] [place], [place] [phone] Evy Christopher ANP [address] [place], [place] [phone] Returning Call Social History Tobacco Use Types [...] from pt stating received a call but magazine writer sees nothing tasked. documented in this encounter Plan of Treatment Upcoming Encounters Date Type Department Care Team (Late st Contact Info) Description 10/02/2025 11:45 AM EST Office Visit [facility] [address] [place] [phone] Clarence Anderson MD [address] [place] [phone] 10/16/2025 9:00 AM EST Office Visit [facility] [address] [place] [phone] Evy Christopher ANP [address] [place] [address] documented as of this encounter Visit Diagnoses Not on filedocumented in this encounter Additional Health Concerns Assessment Noted Time PHQ-9 Depression Total Score: 13 023 2:43 PM EST documented as of this encounter Care Teams Lower In Supervisor Relationship Specialty Start Date End Date Evy Christopher ANP [address] [place] [address] PCP - General Family Medicine 06/20/21 Romeo Echavarria, RN [address] [place] [address] Silver Spray WorkerSystem Validation Engineer 12/25/24 05/07/25 Romeo Echavarria, SUKHWINDER [address] [place] [address] Registered Nurse Family Medicine 04/28/25 04/28/25 Scar Pimentel, SUKHWINDER [address] [place] [address] Registered Nurse Family Medicine 07/13/25 Tawny Frias 07/13/25 documented as of this encounter
--- OUTSIDE RECORDS SUMMARY | 2025-09-16 18:43 | XMS_ITS | Clinical Summary ---
Author Organization [facility] Address [address] [place] [address] Phone Care Team Providers Care Digitizer Name Role Phone Evy Christopher NP Primary Care Provider [phone] Allergies Active Allergy Reactions Criticality Noted Date Comments Grass Pollen-Red Top, Standard 05/09/2024 Other Reaction(s): Unknown Medications FREESTYLE LANCETS MISC USE DIRECTED TO CHECK BLOOD SUGAR EVERY MORNING OR WHEN SYMPTOMATIC 08/17/20 21 Active BD Alcohol Swabs pads, medicated USE TO CHECK BLOOD SUGAR EVERY MORNING DIRECTED. 07/03/20 24 Active ALPRAZolam (XANAX) 0.5 mg tablet 03/04/20 24 Active blood sugar diagnostic (FreeStyle Lite Strips) test strip USE TO CHECK FASTING SUGAR IN THE MORNING OR NEEDED FOR SYMPTOMS 07/03/20 24 Active EPINEPHrine (EPIPEN) 0.3 mg/0.3 mL injection Inject 0.3 mL (0.3 mg total) as directed. 04/21/20 24 Active FLUoxetine (PROzac) 20 mg capsule Take 1 capsule (20 mg total) by mouth daily. 09/19/20 24 Active oxyCODONE (ROXICODONE) 5 mg immediate release tablet Take 1 tablet (5 mg total) by mouth every 4 (four) hours if needed for severe pain. Max Daily Amount: 30 mg 12 tablet 07/01/20 25 Active simethicone (MYLICON) 80 mg chewable tablet Chew 1 tablet (80 mg total) 4 (four) times a day if needed for flatulence (gas pain). 20 tablet 07/01/20 25 Active tirzepatide, weight loss, (Zepbound) 12.5 mg/0.5 mL injection Inject 0.5 mL (12.5 mg total) under the skin every 7 (seven) days. 2 mL 09/03/20 25 025 Active tirzepatide, weight loss, (Zepbound) 10 mg/0.5 mL injection Inject 0.5 mL (10 mg total) under the skin every 7 (seven) days. 2 mL 5 07/08/20 25 025 Discontinued sulfamethoxazo le-trimethopri m (Bactrim DS) 800-160 mg per tablet Take 1 tablet by mouth 2 (two) times a day for 7 days. 14 each 08/11/20 25 025 ibuprofen (ADVIL,MOTRIN) 400 mg tablet Take 1 tablet (400 mg total) by mouth every 6 (six) hours if needed for mild pain for up to 10 days. 30 tablet 08/17/20 25 025 aluminum-magne sium hydroxide-nuvia thicone (MAALOX) 200-200-20 mg/5 mL suspension Take 30 mL by mouth 4 (four) times a day (before meals and nightly) for 7 days. 354 mL 08/17/20 25 025 Active Problems Problem Noted Date Diagnosed Date Constipation 05/20/2025 Chronic pancreatitis ([facility] V24, [facility] V28) 05/06/2025 Gastroenteritis 04/21/2025 Acute flank pain [...] adnexal mass, this pain is not likely Health Care Marketing Specialist in nature. As such, there is [...] hysterectomy 07/06/2022 Overview (09/29/2024): Retained cervix Pap 11/13/23 Right ovarian cyst 04/17/2021 Overview (08/22/2024): 06/2023 [...] 07/01/2025 07/01/2025 Hiatal hernia with GERD 04/14/2025 09/12/2024 Encounters Date Type Department Care Team Description 09/15/2025 7:20 AM EST - 09/15/2025 11:59 PM EST Hospital Encounter [facility] Xray [address] [place] [address] Arrived Discharge Disposition: Home or Self Care 09/09/2025 Telephone Bariatric Surgery [facility] [address] [phone] Paul Rod MD 08/31/2025 10:45 AM EST Office Visit Bariatric Surgery [facility] [address] [phone] Mily Cardenas MD Hx of hiatal hernia (Primary Dx); Food intolerance 08/31/2025 Telephone Bariatric Surgery [facility] [address] [phone] Paul Rod MD 08/17/2025 8:39 PM EDT - 08/17/2025 10:12 PM EDT Emergency [facility] Emergency [address] [place] [address] Ling Nieto MD Chest pain with low risk for cardiac etiology (Primary Dx) Discharge Disposition: Home or Self Care 08/11/2025 12:40 AM EDT - 08/11/2025 5:06 AM EDT Emergency [facility] Emergency [address] [place] [address] Godwin Ordonez MD Acute chest pain (Primary Dx); Right flank pain; Abnormal liver function test; Acute cystitis with hematuria Discharge Disposition: Home or Self Care 07/29/2025 2:30 PM EDT Office Visit Bariatric Surgery - [address] [phone] Mily Cardenas MD Hx of hiatal hernia (Primary Dx); Food intolerance 07/16/2025 [facility] - [address] [phone] Norah Celaya MA 07/15/2025 10:45 AM EDT Office Visit Bariatric Surgery - [address] [phone] Mily Cardenas MD Hx of hiatal hernia (Primary Dx); Food intolerance 07/10/2025 12:58 PM EDT - 07/10/2025 6:24 PM EDT Emergency [facility] Emergency [address] [place] [phone] Ambrosio Soliz MD Periumbilical abdominal pain (Primary Dx) Discharge Disposition: Home or Self Care 07/09/2025 1:06 PM EDT - 07/09/2025 11:59 PM EDT Hospital Encounter Radiology Department - [address] [phone] Pelvic pain; History of ovarian cyst Discharge Disposition: Home or Self Care 06/30/2025 10:24 AM EDT Anesthesia Event [facility] Main OR [address] [place] [address] Spring Vega MD Devlin, Brandon, SRNA 06/30/2025 10:00 AM EDT - 06/30/2025 12:30 PM EDT Surgery [facility] Main OR [address] [place] [phone] Mily Cardenas MD DAVINCI REPAIR OF HIATAL HERNIA [14551 (CPT )] 06/30/2025 8:16 AM EDT - 07/01/2025 4:05 PM EDT Hospital Encounter [facility] Urology Unit [address] [place] [address] Mily Cardenas MD Discharge Disposition: Home or Self Care 06/25/2025 Telephone Obstetrics and Gynecology [id number] [place] [phone] [place] 06/24/2025 9:00 AM EDT Office Visit Obstetrics & Gynecology - [facility] [address] [place] [address] Tawny Arriaga CNM Pelvic pain (Primary Dx); Screen for STD (sexually transmitted disease); History of ovarian cyst 06/16/2025 8:45 AM EDT Office Visit Bariatric Surgery - [place] 175 [facility] [address] [place] [phone] Paul Rod MD Over weight (Primary Dx) from Last 3 Months Immunizations Immunization Administration Dates Next Due Hepatitis A-Hepatitis B Adul t (Twinrix) 18yo and older 04/19/2016,02/18/2014,01/15/2014 Hepatitis B (Dwjeqla-I-Ibsav , Recombivax HB-Adult) 19yo and older 09/27/2021 [...] LAPAROSCOPY, CHOLECYSTECTOMY BREAST REDUCTION 2005 Bilateral PROCEDURE: DE BREAST REDUCTION SALPINGOOPHORECTOMY 2015 Left PROCEDURE: DE LAPAROSCOPY W/RMVL ADNEXAL STRUCTURES; COMMENT: left salpingectomy only HYSTERECTOMY 02/2018 PROCEDURE: HISTORICAL HYSTERECTOMY; COMMENT: robotic TUBAL LIGATION PROCEDURE: HISTORICAL TUBAL LIGATION BREAST SURGERY 08/2020 PROCEDURE: DE BREAST AUGMENTATION WITH IMPLANT; COMMENT: in [place] OTHER SURGICAL HISTORY 08/2020 PROCEDURE: HISTORICAL PANNICULECTOMY; COMMENT: Rose Marie mendoza in [place] Medical History Medical History Date Comments Anemia [...] Sign Reading Time Taken Comments Blood Pressure 117/79 08/31/2025 10:34 AM EST Pulse 76 08/31/2025 10:34 AM EST Temperature 36.6 C (97.9 F) 08/31/2025 10:34 AM EST Respiratory Rate 20 08/17/2025 8:51 PM EDT Oxygen Saturation 96% 08/17/2025 8:51 PM EDT Inhaled Oxygen Concentration - - Weight 71.2 kg (157 lb) 08/31/2025 10:34 AM EST Height 160 cm (5' 3 ) 08/31/2025 10:34 AM EST Body Mass Index 27.81 08/31/2025 10:34 AM EST Plan of Treatment Upcoming Encounters Date Type Department Care Team (Late st Contact Info) Description 10/05/2025 9:15 AM EST Office Visit Bariatric Surgery [facility] [address] [phone] Mily Cardenas MD [address] [place] [address] 12/17/2025 10:15 AM EST Office Visit Bariatric Surgery [facility] [address] [phone] Paul Rod MD [address] [place] [phone] Health Maintenance Due Date Last Done Comments Breast Cancer Screening 1978 Colorectal Cancer Screening: Colonoscopy 1978 Social Influencers of Health Screening 10/01/2022 Depression Screening 10/29/2024 COVID-19 Vaccine ( season) 2025 11/03/2022, 11/27/2021, 03/23/2021, Additional history exists Cholesterol Screening (Lipid Panel) 08/31/2030 08/31/2025, 03/31/2025, 11/12/2024, Additional history exists DTaP,Tdap,and Td Vaccines (4 - Td or [...] Completed 07/18/2024, 09/04/2018, 05/04/2011, Additional history exists Influenza Vaccine Completed 07/27/2025, , 07/06/2022, Additional history exists HIB Vaccines Aged Out [...] EST Hx of hiatal hernia Food intolerance ECG ANNOTATED 08/18/2025 XR CHEST 2 VIEWS STAT 08/17/2025 9:10 PM EDT TROPONIN I HIGH SENSITIVITY Timed 08/17/2025 7:12 PM EDT CBC WITH AUTO DIFFERENTIAL STAT 08/17/2025 3:59 PM EDT B-TYPE NATRIURETIC PEPTIDE STAT 08/17/2025 3:59 PM EDT MAGNESIUM STAT 08/17/2025 3:59 PM EDT LIPASE STAT 08/17/2025 3:59 PM EDT COMPREHENSIVE METABOLIC PANEL STAT 08/17/2025 3:59 PM EDT CBC AND DIFFERENTIAL STAT 08/17/2025 3:59 PM EDT TROPONIN I HIGH SENSITIVITY Timed 08/17/2025 3:59 PM EDT ECG 12-LEAD STAT 08/17/2025 3:26 PM EDT XR CHEST 2 VIEWS STAT 08/11/2025 2:[address] ABDOMEN PELVIS WO CONTRAST STAT 08/11/2025 2:18 AM EDT URINALYSIS WITH REFLEX MICROSCOPIC STAT 08/11/2025 1:49 AM EDT URINALYSIS WITH REFLEX MICROSCOPIC STAT 08/11/2025 1:49 AM EDT TROPONIN I HIGH SENSITIVITY Timed 08/11/2025 1:24 AM EDT ECG ANNOTATED 08/11/2025 HCG, SERUM, QUALITATIVE STAT Add-on 08/10/2025 6:05 PM EDT D-DIMER STAT 08/10/2025 6:05 PM EDT CBC WITH AUTO DIFFERENTIAL STAT 08/10/2025 6:05 PM EDT B-TYPE NATRIURETIC PEPTIDE STAT 08/10/2025 6:05 PM EDT MAGNESIUM STAT 08/10/2025 6:05 PM EDT LIPASE STAT 08/10/2025 6:05 PM EDT COMPREHENSIVE METABOLIC PANEL STAT 08/10/2025 6:05 PM EDT CBC AND DIFFERENTIAL STAT 08/10/2025 6:05 PM EDT TROPONIN I HIGH SENSITIVITY Timed 08/10/2025 6:05 PM EDT ECG 12-LEAD STAT 08/10/2025 5:38 PM EDT ECG ANNOTATED 07/13/2025 CT ABDOMEN PELVIS W [...] ENDOTRACHEAL(NO CHARGE) Routine 06/30/2025 10:40 AM EDT DE LAPAROSCOPY SURG REPAIR PARAESOPHAGEAL HERNIA INCL FUNDOPLASTY [...] 10:47 AM EDT Hiatal hernia with GERD HEPATITIS C SCREENING Routine 02/01/2022 HIV SCREENING Routine 02/01/2022 from Last 3 Months or Most Recently Relevant to Health Maintenance Results * XR UGI w Single Contrast (09/15/2025 8:41 AM EST) Anatomical Region Laterality Modality Body Radiographic Leigh ging 09/15/2025 12:3 7 PM EST Impressions 09/15/2025 5:07 PM EST Mild to moderate narrowing of the distal esophagus at the area of the diaphragmatic hiatus consistent with recent hiatal hernia repair. No evidence of contrast leak, extravasation or residual hernia. -------- FINAL REPORT -------- Dictated By: Joelle Francisco Dictated Date: 09/15/2025 12:37 ET Assigned Physician: Daniel Soriano Reviewed and Electronically Signed By: Daniel Soriano Signed Date: 09/15/2025 17:07 ET Workstation ID: [id number] Transcribed By: Self Edit Transcribed Date: 09/15/2025 12:41 ET Resident/PA/BICYCLE SERVICE TECHNICIAN: Joelle Francisco Narrative 09/15/2025 5:07 PM EST EXAM: Single contrast esophagram performed. COMPARISON: No prior upper GI imaging HISTORY: Hiatal hernia repair June 30, 2025. Follow-up. Applied Mathematician radiographs: 1 view abdominal radiograph demonstrates nonobstructive bowel gas pattern. Visualized lung bases are clear. Moderate stool burden. Breast implants partially visualized. Slight levoscoliosis of the lumbar spine. TECHNIQUE: Thin barium was administered orally under fluoroscopic control. FINDINGS: The proximal and mid esophagus demonstrates normal distensibility without evidence of ulceration, stricture or mass formation. There is mild to moderate narrowing of the distal esophagus at the area of the diaphragmatic hiatus consistent with hiatal hernia repair. There is no evidence of contrast leak, extravasation or residual hernia. Procedure Note Daniel Soriano MD - 09/15/2025 EXAM: Single contrast esophagram performed. COMPARISON: No prior upper GI imaging HISTORY: Hiatal hernia repair June 30, 2025. Follow-up. Applied Mathematician radiographs: 1 view abdominal radiograph demonstrates nonobstructivebowel gas pattern. Visualized lung bases are clear. Moderate stool burden.Breast implants partially visualized. Slight levoscoliosis of the lumbarspine. TECHNIQUE: Thin barium was administered orally under fluoroscopiccontrol. FINDINGS: The proximal and mid esophagus demonstrates normaldistensibility without evidence of ulceration, stricture or massformation. There is mild to moderate narrowing of the distal esophagus atthe area of the diaphragmatic hiatus consistent with hiatal hernia repair.There is no evidence of contrast leak, extravasation or residual hernia. IMPRESSION: Mild to moderate narrowing of the distal esophagus at the area of thediaphragmatic hiatus consistent with recent hiatal hernia repair. No evidence of contrast leak, extravasation or residual hernia. -------- FINAL REPORT -------- Dictated By: Joelle Francisco Dictated Date: 09/15/2025 12:37 ET Assigned Physician: Daniel Soriano Reviewed and Electronically Signed By: Daniel Soriano Signed Date: 09/15/2025 17:07 ET Workstation ID: [id number] Transcribed By: Self Edit Transcribed Date: 09/15/2025 12:41 ET Resident/PA/BICYCLE SERVICE TECHNICIAN: Joelle Francisco Mily Cardenas MD IMG FLUOROSCOPY PROCEDU RES Final Result * ECG-Annotated (08/18/2025) Only the most recent of3 resultswithin the time period is included. us Provider Onbase ECG ORDERABLES Final Result * XR Chest 2 Views (08/17/2025 9:10 PM EDT) Only the most recent of2 resultswithin the time period is included. Anatomical Region Laterality Modality Body Radiographic Leigh ging 08/18/2025 9:25 AM EDT Impressions 08/18/2025 9:26 AM EDT Normal chest radiographs. -------- FINAL REPORT -------- Dictated By: Andrew Jalloh Dictated Date: 08/18/2025 09:25 ET Assigned Physician: Andrwe Jalloh Reviewed and Electronically Signed By: Andrew Jalloh Signed Date: 08/18/2025 09:26 ET Workstation ID: [id number] Transcribed By: Self Edit Transcribed Date: 08/18/2025 09:25 ET Narrative 08/18/2025 9:26 AM EDT PROCEDURE: PA and lateral radiographs of the chest. HISTORY: chest pain. COMPARISON: 08/11/2025. FINDINGS: The heart, mediastinum, lungs, pleural spaces, and bony thorax are normal. Procedure Note Andrew Jalloh MD - 08/18/2025 PROCEDURE: PA and lateral radiographs of the chest. HISTORY: chest pain. COMPARISON: 08/11/2025. FINDINGS: The heart, mediastinum, lungs, pleural spaces, and bony thorax arenormal. IMPRESSION: Normal chest radiographs. -------- FINAL REPORT -------- Dictated By: Andrew Jalloh Dictated Date: 08/18/2025 09:25 ET Assigned Physician: Andrew Jalloh Reviewed and Electronically Signed By: Andrew Jalloh Signed Date: 08/18/2025 09:26 ET Workstation ID: [id number] Transcribed By: Self Edit Transcribed Date: 08/18/2025 09:25 ET us Ling Nieto MD IMG XR PROCEDURES Final Result * Troponin I high sensitivity (08/17/2025 7:12 PM EDT) Only the most recent of4 resultswithin the time period is included. [facility] High Sensitivity Troponin I <3 <=54 ng/L LAB CHEMISTRY METHOD 08/17/2025 8:09 PM EDT [facility] Blood Venous blood specimen / Unknown Venipuncture / Unknown 08/17/2025 7:12 PM EDT 08/17/2025 7:25 PM EDT Narrative [facility] - 08/17/2025 8:09 PM EDT High levels of biotin in samples may falsely decrease hsTroponin values. Use caution when interpreting hsTroponin results in patients taking biotin who exhibit renal impairment (eGFR <60) or in patients taking more than 20 mg/day of biotin. us Ling Nieto MD LAB BLOOD ORDERABLES Final Resul t [facility] [address] [place] [address], * (ABNORMAL) CBC auto differential (08/17/2025 3:59 PM EDT) Only the most recent of5 resultswithin the time period is included. [facility] WBC 7.2 4.8 - 10.8 K/mcL LAB HEMETOLOGY METHOD 08/17/2025 4:27 PM [facility] RBC 4.20 3.80 - 4.80 M/mcL LAB HEMETOLOGY METHOD 08/17/2025 4:27 PM [facility] Hemoglobin 11.4(L) 11.5 - 16.0 g/dL LAB HEMETOLOGY METHOD 08/17/2025 4:27 PM [facility] Hematocrit 37.7 35.0 - 47.0 % LAB HEMETOLOGY METHOD 08/17/2025 4:27 PM [facility] MCV 89.3 79.0 - 98.0 FL LAB HEMETOLOGY METHOD 08/17/2025 4:27 PM [facility] MCH 27.0 27.0 - 32.0 pcg LAB HEMETOLOGY METHOD 08/17/2025 4:27 PM [facility] MCHC 30.2(L) 32.0 - 37.0 g/dL LAB HEMETOLOGY METHOD 08/17/2025 4:27 PM [facility] RDW 12.5 11.0 - 15.0 % LAB HEMETOLOGY METHOD 08/17/2025 4:27 PM [facility] Platelets 305 130 - 400 K/mcL LAB HEMETOLOGY METHOD 08/17/2025 4:27 PM [facility] MPV 10.8 7.0 - 11.0 FL LAB HEMETOLOGY METHOD 08/17/2025 4:27 PM [facility] NRBC 0.0 <1.0 % LAB HEMETOLOGY METHOD 08/17/2025 4:27 PM [facility] NRBC Absolute 0.00 <0.10 K/mcL LAB HEMETOLOGY METHOD 08/17/2025 4:27 PM [facility] Neutrophils Relative 56.8 % LAB HEMETOLOGY METHOD 08/17/2025 4:27 PM [facility] Lymphocytes Relative 30.5 % LAB HEMETOLOGY METHOD 08/17/2025 4:27 PM [facility] Monocytes Relative 8.8 % LAB HEMETOLOGY METHOD 08/17/2025 4:27 PM [facility] Eosinophils Relative 2.6 % LAB HEMETOLOGY METHOD 08/17/2025 4:27 PM [facility] Basophils Relative 1.0 % LAB HEMETOLOGY METHOD 08/17/2025 4:27 PM [facility] Immature Granulocytes Relative 0.3 % LAB HEMETOLOGY METHOD 08/17/2025 4:27 PM [facility] Neutrophils Absolute 4.07 1.50 - 7.00 K/mcL LAB HEMETOLOGY METHOD 08/17/2025 4:27 PM [facility] Lymphocytes Absolute 2.19 1.00 - 5.00 K/mcL LAB HEMETOLOGY METHOD 08/17/2025 4:27 PM [facility] Monocytes Absolute 0.63 0.20 - 1.00 K/mcL LAB HEMETOLOGY METHOD 08/17/2025 4:27 PM [facility] Eosinophils Absolute 0.19 0.00 - 0.50 K/mcL LAB HEMETOLOGY METHOD 08/17/2025 4:27 PM [facility] Basophils Absolute 0.07 0.00 - 0.20 K/mcL LAB HEMETOLOGY METHOD 08/17/2025 4:27 PM [facility] Immature Granulocytes Absolute 0.02 0.00 - 0.03 K/mcL LAB HEMETOLOGY METHOD 08/17/2025 4:27 PM [facility] Blood Venous blood specimen / Unknown Venipuncture / Unknown 08/17/2025 3:59 PM EDT 08/17/2025 4:13 PM EDT us Ling Nieto MD LAB BLOOD ORDERABLES Final Resul t Performing Organization Address City/[facility]/ZIP Co de Phone Number [facility] [address] [place] [address], [place] [phone] * B-type natriuretic peptide (08/17/2025 3:59 PM EDT) Only the most recent of2 resultswithin the time period is included. BNP 13 <=100 pcg/mL LAB CHEMISTRY METHOD 08/17/2025 5:12 PM EDT [facility] Blood Venous blood specimen / Unknown Venipuncture / Unknown 08/17/2025 3:59 PM EDT 08/17/2025 4:13 PM EDT us Ling Nieto MD LAB BLOOD ORDERABLES Final Resul t Performing Organization Address [facility] de Phone Number [facility] [address] [place] [address], [place] [phone] * Magnesium (08/17/2025 3:59 PM EDT) Only the most recent of3 resultswithin the time period is included. Magnesium 1.9 1.9 - 2.6 mg/dL LAB CHEMISTRY METHOD 08/17/2025 4:52 PM EDT [facility] Blood Venous blood specimen / Unknown Venipuncture / Unknown 08/17/2025 3:59 PM EDT 08/17/2025 4:13 PM EDT us Ling Nieto MD LAB BLOOD ORDERABLES Final Resul t Performing Organization Address [facility] Co de Phone Number [facility] [address] [place] [address], [place] [phone] * Lipase (08/17/2025 3:59 PM EDT) Only the most recent of3 resultswithin the time period is included. Lipase 50 13 - 75 unit/L LAB CHEMISTRY METHOD 08/17/2025 4:52 PM [facility] Blood Venous blood specimen / Unknown Venipuncture / Unknown 08/17/2025 3:59 PM EDT 08/17/2025 4:13 PM EDT us Ling Nieto MD LAB BLOOD ORDERABLES Final Resul t [facility] [address] [place] [address], [place] [phone] * (ABNORMAL) Comprehensive metabolic panel (08/17/2025 3:59 PM EDT) Only the most recent of4 resultswithin the time period is included. Pathologist [facility] Sodium 141 133 - 145 mmol/L LAB CHEMISTRY METHOD 08/17/2025 4:52 PM [facility] Potassium 4.0 3.5 - 5.5 mmol/L LAB CHEMISTRY METHOD 08/17/2025 4:52 PM [facility] Chloride 107 96 - 110 mmol/L LAB CHEMISTRY METHOD 08/17/2025 4:52 PM [facility] CO2 30 21 - 32 mmol/L LAB CHEMISTRY METHOD 08/17/2025 4:52 PM [facility] Anion Gap 4 3 - 11 LAB CHEMISTRY METHOD 08/17/2025 4:52 PM [facility] Glucose 84 70 - 100 mg/dL LAB CHEMISTRY METHOD 08/17/2025 4:52 PM [facility] BUN 11 5 - 25 mg/dL LAB CHEMISTRY METHOD 08/17/2025 4:52 PM [facility] Creatinine 0.72 0.50 - 1.10 mg/dL LAB CHEMISTRY METHOD 08/17/2025 4:52 PM [facility] eGFR 104 >=60 mL/min/1. 73m2 LAB CHEMISTRY METHOD 08/17/2025 4:52 PM EDT [facility] Comment:Calculation based on the Chronic Kidney Disease Epidemiology Collaboration (CKD-EPI) equation refit without adjustment for race. BUN/Creatinine Ratio 15.3 LAB CHEMISTRY METHOD 08/17/2025 4:52 PM EDT [facility] Calcium 9.7 8.5 - 10.5 mg/dL LAB CHEMISTRY METHOD 08/17/2025 4:52 PM EDT [facility] AST (SGOT) 50(H) 10 - 42 unit/L LAB CHEMISTRY METHOD 08/17/2025 4:52 PM [facility] ALT (SGPT) 47 10 - 60 unit/L LAB CHEMISTRY METHOD 08/17/2025 4:52 PM [facility] Alkaline Phosphatase 92 42 - 121 unit/L LAB CHEMISTRY METHOD 08/17/2025 4:52 PM EDT [facility] Total Protein 7.2 6.0 - 8.0 g/dL LAB CHEMISTRY METHOD 08/17/2025 4:52 PM [facility] Albumin 3.7 3.2 - 5.0 g/dL LAB CHEMISTRY METHOD 08/17/2025 4:52 PM [facility] Total Bilirubin 0.8 0.0 - 1.4 mg/dL LAB CHEMISTRY METHOD 08/17/2025 4:52 PM T [facility] Blood Venous blood specimen / Unknown Venipuncture / Unknown 08/17/2025 3:59 PM EDT 08/17/2025 4:13 PM EDT us Ling Nieto MD LAB BLOOD ORDERABLES Final Resul t [facility] [address] [place] [address], * ECG 12 lead (08/17/2025 3:26 PM EDT) Only the most recent of3 resultswithin the time period is included. Ventricular Rate ECG 77 BPM GEMUSE Atrial Rate 77 BPM GEMUSE P-R Interval 156 ms GEMUSE QRS Duration 80 ms GEMUSE Q-T Interval 386 ms GEMUSE QTc 436 ms GEMUSE P Wave [place] 67 degrees GEMUSE R [place] 25 degrees GEMUSE T [place] -32 degrees GEMUSE ECG Interpretation Normal sinus rhythm T wave abnormality, consider anterior ischemia When compared with ECG of 10-AUG-2025 17:38, No significant change was found Confirmed by JONI SNIDER ([id number]) on 08/18/2025 12:22:54 PM GEMUSE 08/17/2025 3:26 PM EDT 08/18/2025 12:22 PM EDT us Ling Nieto MD ECG ORDERABLES Final Result GEMUSE * CT Abdomen Pelvis wo Contrast (08/11/2025 2:18 AM EDT) Anatomical Region Laterality Modality Body Computed Tomogra phy 08/11/2025 3:24 AM EDT Impressions 08/11/2025 3:24 AM EDT No acute findings. This document has been electronically signed by: Maynor Holt MD, PHD on 08/11/2025 03:24:01 Narrative 08/11/2025 3:24 AM EDT INDICATION: Abdominal pain, acute, no prior medical history CT abdomen and pelvis without contrast Comparison: CT/SR - CT ABD PEL W CONTRAST - 07/10/25 15:05 EDT Findings: No consolidation or effusion. Prior Hari fundoplication noted at the gastroesophageal junction. The gallbladder is surgically absent. No focal hepatic lesion. Pancreas, spleen and adrenal glands are within normal limits. Kidneys are non hydronephrotic. Small nonobstructing renal calculi are visible within the right kidney. No bowel obstruction, pneumoperitoneum, or pneumatosis. Pelvic contents unremarkable. Normal appendix. No acute fracture. Procedure Note Maynor Holt MD PhD - 08/11/2025 INDICATION: Abdominal pain, acute, no prior medical history CT abdomen and pelvis without contrast Comparison: CT/SR - CT ABD PEL W CONTRAST - 07/10/25 15:05 EDT Findings: No consolidation or effusion. Prior Hari fundoplication noted at the gastroesophageal junction. The gallbladder is surgically absent. No focal hepatic lesion. Pancreas, spleen and adrenal glands are within normal limits. Kidneys are non hydronephrotic. Small nonobstructing renal calculi are visible within the right kidney. No bowel obstruction, pneumoperitoneum, or pneumatosis. Pelvic contents unremarkable. Normal appendix. No acute fracture. IMPRESSION: No acute findings. This document has been electronically signed by: Maynor Holt MD, PHD on 08/11/2025 03:24:01 Godwin Ordonez MD IMG CT PROCEDURES Final Res ult * (ABNORMAL) Urinalysis with reflex microscopic (08/11/2025 1:49 AM EDT) Specific [place] Urine 1.021 1.003 - 1.030 LAB URINALYSIS - AUTOMATED METHOD 08/11/2025 2:40 AM [facility] pH, Urine 5.5 5.0 - 8.0 pH LAB URINALYSIS - AUTOMATED METHOD 08/11/2025 2:40 AM [facility] Leukocytes, Urine Small(A) Negative LAB URINALYSIS - AUTOMATED METHOD 08/11/2025 2:40 AM [facility] Nitrite, Urine Negative Negative LAB URINALYSIS - AUTOMATED METHOD 08/11/2025 2:40 AM [facility] Protein, Urine Trace <=Trace mg/dL LAB URINALYSIS - AUTOMATED METHOD 08/11/2025 2:40 AM [facility] Glucose, Urine Negative Negative mg/dL LAB URINALYSIS - AUTOMATED METHOD 08/11/2025 2:40 AM [facility] Ketones, Urine Trace(A) Negative mg/dL LAB URINALYSIS - AUTOMATED METHOD 08/11/2025 2:40 AM [facility] Urobilinogen, Urine 1.0 0.2 - 1.0 mg/dL LAB URINALYSIS - AUTOMATED METHOD 08/11/2025 2:40 AM [facility] Bilirubin, Urine Negative Negative LAB URINALYSIS - AUTOMATED METHOD 08/11/2025 2:40 AM [facility] Blood, Urine Negative Negative LAB URINALYSIS - AUTOMATED METHOD 08/11/2025 2:40 AM [facility] RBC, Urine 1.7 0 - 4 /HPF LAB URINALYSIS - AUTOMATED METHOD 08/11/2025 2:40 AM [facility] WBC, Urine 17.2(H) 0 - 4 /HPF LAB URINALYSIS - AUTOMATED METHOD 08/11/2025 2:40 AM [facility] Bacteria, Urine Few(A) Negative /HPF LAB URINALYSIS - AUTOMATED METHOD 08/11/2025 2:40 AM [facility] Hyaline Casts, Urine 2 0 - 3 /LPF LAB URINALYSIS - AUTOMATED METHOD 08/11/2025 2:40 AM [facility] Urine Urine specimen obtained by clean catch procedure / Unknown Non-blood Collection / Unknown 08/11/2025 1:49 AM EDT 08/11/2025 2:11 AM EDT us Godwin Ordonez MD LAB URINE ORDERABLES Final Result [facility] [address] [place] [address], * D-dimer, quantitative (08/10/2025 6:05 PM EDT) D-Dimer, Quant (D-DU) <150 <=230 ng/mL DDU LAB COAGULATION METHOD 08/10/2025 6:47 PM [facility] Blood Venous blood specimen / Unknown Venipuncture / Unknown 08/10/2025 6:05 PM EDT 08/10/2025 6:28 PM EDT Narrative [facility] - 08/10/2025 6:47 PM EDT D-Dimer <230 ng/mL (D-Dimer units) is the threshold for exclusion of DVT/PE. D-Dimer may be elevated in: Critically ill, severely infected, trauma patients, DIC, acute CVA, acute [place], unstable angina, AF, old age, , and smoking. D-Dimer may be decreased with: Initiation of heparin therapy and oral anticoagulants. Godwin Ordonez MD LAB BLOOD ORDERABLES Final Result Performing Organization Address [facility]/ZIP Co de Phone Number [facility] [address] [place] [address], [place] [phone] * hCG, serum, qualitative (08/10/2025 6:05 PM EDT) hCG Qual Negative Negative 08/11/2025 1:25 AM EDT [facility] Blood Venous blood specimen / Unknown Venipuncture / Unknown 08/10/2025 6:05 PM EDT 08/10/2025 6:28 PM EDT Godwin Ordonez MD LAB BLOOD ORDERABLES Final Result Performing Organization Address [facility]/ZIP Co de Phone Number [facility] [address] [place] [address], [place] [phone] * CT Abdomen Pelvis w Contrast (07/10/2025 3:09 PM EDT) Anatomical Region Laterality Modality Body Computed Tomogra phy 07/10/2025 4:05 PM EDT Impressions 07/10/2025 4:22 PM EDT Postoperative changes of a Hari fundoplication without evidence for obstruction, fluid collection or abscess. -------- FINAL REPORT -------- Dictated By: John Nick Dictated Date: 07/10/2025 16:05 ET Assigned Physician: John Nick Reviewed and Electronically Signed By: John Nick Signed Date: 07/10/2025 16:22 ET Workstation ID: [id number] Transcribed By: Self Edit Transcribed Date: 07/10/2025 [...] Signed Date: 07/10/2025 16:22 ET Workstation ID: [id number] Transcribed By: Self Edit Transcribed Date: 07/10/2025 16:05 ET us Ambrosio Soliz MD IMG CT PROCEDURES Final Result * [place] [...] Santiago Reviewed and Electronically Signed By: Silvio Satniago Signed Date: 07/09/2025 17:05 ET Workstation ID: [id number] Transcribed By: Self Edit Transcribed Date: 07/09/2025 [...] Signed Date: 07/09/2025 17:05 ET Workstation ID: [id number] Transcribed By: Self Edit Transcribed Date: 07/09/2025 [...] Signed Date: 07/09/2025 17:05 ET Workstation ID: [id number] Transcribed By: Self Edit Transcribed Date: 07/09/2025 [...] Signed Date: 07/09/2025 17:05 ET Workstation ID: [id number] Transcribed By: Self Edit Transcribed Date: 07/09/2025 17:03 ET us Tawny HUITRONM IMG US PROCEDURES Final Result * Phosphorus (07/01/2025 6:13 AM EDT) Phosphorus 4.0 2.5 - 4.5 mg/dL LAB CHEMISTRY METHOD 07/01/2025 7:35 AM EDT [facility] Blood Venous blood specimen / Unknown Venipuncture / Unknown 07/01/2025 6:13 AM EDT 07/01/2025 6:41 AM EDT us Beena GREEN LAB BLOOD ORDERABLES Final Resul t [facility] [address] [place] [address], [place] [phone] * Basic metabolic panel (07/01/2025 6:13 AM EDT) Sodium 138 133 - 145 mmol/L LAB CHEMISTRY METHOD 07/01/2025 7:35 AM [facility] Potassium 4.1 3.5 - 5.5 mmol/L LAB CHEMISTRY METHOD 07/01/2025 7:35 AM [facility] Chloride 103 96 - 110 mmol/L LAB CHEMISTRY METHOD 07/01/2025 7:35 AM [facility] CO2 29 21 - 32 mmol/L LAB CHEMISTRY METHOD 07/01/2025 7:35 AM [facility] Anion Gap 6 3 - 11 LAB CHEMISTRY METHOD 07/01/2025 7:35 AM [facility] Glucose 87 70 - 100 mg/dL LAB CHEMISTRY METHOD 07/01/2025 7:35 AM [facility] BUN 6 5 - 25 mg/dL LAB CHEMISTRY METHOD 07/01/2025 7:35 AM EDT [facility] Creatinine 0.64 0.50 - 1.10 mg/dL LAB CHEMISTRY METHOD 07/01/2025 7:35 AM EDT [facility] eGFR 110 >=60 mL/min/1. 73m2 LAB CHEMISTRY METHOD 07/01/2025 7:35 AM EDT [facility] Comment:Calculation based on the Chronic Kidney Disease Epidemiology Collaboration (CKD-EPI) equation refit without adjustment for race. BUN/Creatinine Ratio 9.4 LAB CHEMISTRY METHOD 07/01/2025 7:35 AM EDT [facility] Calcium 8.9 8.5 - 10.5 mg/dL LAB CHEMISTRY METHOD 07/01/2025 7:35 AM EDT [facility] Blood Venous blood specimen / Unknown Venipuncture / Unknown 07/01/2025 6:13 AM EDT 07/01/2025 6:41 AM EDT us Beena GREEN LAB BLOOD ORDERABLES Final Resul t [facility] [address] [place] [address], * TH AN ENDOTRACHEAL(NO CHARGE) (06/30/2025 10:40 AM EDT) Alexander Simmons SRNA - 06/30/2025 10:40 AM EDT TUNG [...] mask + OA or adjuvant +/- NMBA Spring Vega MD ANESTHESIA ORDERABLES Final Resu lt * Type and screen (06/30/2025 9:12 AM EDT) Only the most recent of2 resultswithin the time period is included. ABO Group A 06/30/2025 10:49 AM EDT [facility] Rh Type Positive 06/30/2025 10:49 AM EDT [facility] Antibody Screen Negative 06/30/2025 10:49 AM EDT [facility] Blood Venous blood specimen / Unknown Venipuncture / Unknown 06/30/2025 9:12 AM EDT 06/30/2025 9:19 AM EDT Mily Cardenas MD LAB BLOOD BANK TEST ORD ERABLES Final Result [facility] [address] [place] [address], * Trichomonas vaginalis antigen (06/24/2025 9:32 AM EDT) Trichomonas vaginalis Negative Negative 06/24/2025 4:49 PM EDT [facility] Swab Vaginal structure / Unknown Non-blood Collection / Unknown 06/24/2025 9:32 AM EDT 06/24/2025 3:45 PM EDT Tawny Arriaga CNM LAB MICROBIOLOGY - GENERAL ORD ERABLES Final Result Performing Organization Address City/[facility]/ZIP Co de Phone Number [facility] [address] [place] [address], [place] [phone] * Chlamydia trachomatis and Neisseria gonorrhoeae molecular study (06/24/2025 9:32 AM EDT) Pathologist [facility] Neisseria gonorrhoeae PCR Negative Negative LAB MOLECULAR DIAGNOSTICS METHOD 06/25/2025 1:47 PM EDT [facility] Chlamydia trachomatis PCR Negative Negative LAB MOLECULAR DIAGNOSTICS METHOD 06/25/2025 1:47 PM EDT [facility] Swab Cervix uteri structure / Unknown Non-blood Collection / Unknown 06/24/2025 9:32 AM EDT 06/24/2025 3:45 PM EDT us Tawny HUITRON LAB MICROBIOLOGY - GENERAL ORD ERABLES Final Result Performing Organization Address [facility]/ZIP Co de Phone Number [facility] [address] [place] [address], [place] [phone] * (ABNORMAL) Wet prep, genital (06/24/2025 9:32 AM EDT) Pathologist [facility] Clue Cells, Wet Prep Negative Negative 06/24/2025 4:43 PM EDT [facility] Yeast, Wet Prep Positive(A) Negative 06/24/2025 4:43 PM EDT [facility] Trichomonas, Wet Prep Indeterminate Negative 06/24/2025 4:43 PM EDT [facility] Comment:Refer to Trichomonas antigen. Swab Vaginal structure / Unknown Non-blood Collection / Unknown 06/24/2025 9:32 AM EDT 06/24/2025 3:45 PM EDT us Tawny HUITRON LAB MICROBIOLOGY - GENERAL ORD ERABLES Final Result Performing Organization Address City/[facility]/ZIP Co de Phone Number [facility] [address] [place] [address], [place] [phone] * Culture urine (06/24/2025 9:32 AM EDT) [facility] Culture, Urine 10,000-49,000 CFU/mL Mixed urogenital aram, no uropathogens present. Suggest repeat specimen if clinically indicated. 06/25/2025 8:57 AM EDT [facility] Urine Urine specimen obtained by clean catch procedure / Unknown Non-blood Collection / Unknown 06/24/2025 9:32 AM EDT 06/24/2025 3:47 PM EDT Tawny Arriaga CNM LAB MICROBIOLOGY - GENERAL ORD ERABLES Final Result Performing Organization Address City/[facility]/ZIP Co de Phone Number [facility] [address] [place] [address], [place] [phone] * Activated partial thromboplastin time (06/22/2025 10:47 AM EDT) [facility] aPTT 33.4 24.1 - 39.3 sec LAB COAGULATION METHOD 06/22/2025 12:21 PM EDT [facility] Blood Venous blood specimen / Unknown Venipuncture / Unknown 06/22/2025 10:47 AM EDT 06/22/2025 12:09 PM EDT Mily Cardenas MD LAB BLOOD ORDERABLES Fi nal Result [facility] [address] [place] [address], [place] [phone] * HIV Screening (02/01/2022) [facility] HIV Screening Abstracted Historical Yelena [facility] Final Result * Hepatitis C Screening (02/01/2022) Pathologist [facility] Hepatitis C Screening Abstracted Historical Provider HEALTH MAINTENANCE Final Result from Last 3 Months or Most Recently Relevant to Health Maintenance Insurance MEDICAID - [place] Advance Directives * Full Code - Default [...] currently active code status orders. Care Teams Digitizer Relationship Specialty Start Date End Date Evy Christopher NP [address] [place] [address] PCP - General 10/26/24
--- OUTSIDE RECORDS SUMMARY | 2025-09-16 18:43 | XMS_ITS | Encounter Summary ---
Author Organization [employer] Address [address] [facility] 7t [place] [address] Care Team Providers Care Police Or Patrol Park Officer Name Role Phone Evy Christopher Primary Care Provider [phone] Scar Pimentel RN Unavailable [phone] Tawny Frias Unavailable Reason for Visit * Reason Comments Care Management C3CM- f/u call lvm Encounter Details Date Type Department Care Team (Late st Contact Info) Description 09/11/2025 Patient Outreach [facility]INE [address] [place], [place] [phone] Evy Christopher ANP [address] [place] [address] Care Management (C3CM- f/u call lvm) Social History Tobacco Use Types Packs/Day Years [...] Date Recorded Patient Health Questionnaire-9 Score 0 08/04/2025 Patient Health Questionnaire-9 Score 0 08/04/2025 Last PHQ-9: Questionnaire Data Not on file 1 Housing Stability Answer Date Recorded What is [...] Date Recorded Patient Health Questionnaire-2 Score 0 08/04/2025 Internet Access Answer Date Recorded Internet Access [...] as of this encounter Progress Notes * Scar Pimentel RN - 09/11/2025 9:02 AM EST CM Scar Pimentel RN placed outbound call to patient for follow up call. No answer at this time. LVM introducing herself from [facility] CM Department. Requested call back. CM reinforced direct contact information for any additional questions or concerns. Education provided on Walk-In Urgent Care located in [facility]. Patient provided with after-hours line for [facility], , which offer night time triage service and option to transfer to strategic sourcing consultant provider if needed. CM reminded patient of her scheduled HDF today 09/11/25 at 10:30am and advised if she f/u with any questions or concerns. CM will attempt another follow up call within 10 days. documented in this encounter Plan of Treatment Upcoming Encounters Date Type Department Care Team (Late st Contact Info) Description 10/02/2025 11:45 AM EST Office Visit [address] [address] Clarence Anderson MD [address] [place] [address] 10/16/2025 9:00 AM EST Office Visit [address] [address] Evy Christopher ANP [address] [place] [address] documented as of this encounter Visit Diagnoses Not on filedocumented in this encounter Additional Health Concerns Assessment Noted Time PHQ-9 Depression Total Score: 0 08/04/20 11:55 AM EDT documented as of this encounter Care Teams Police Or Patrol Park Officer Relationship Specialty Start Date End Date Evy Christopher ANP [address] [place] [address] PCP - General Family Medicine 06/20/21 Scar Pimentel RN [address] [place] [address] Registered Nurse Family Medicine 07/13/25 Tawny Frias 07/13/25 documented as of this encounter
--- OUTSIDE RECORDS SUMMARY | 2025-09-16 18:43 | XMS_ITS | Encounter Summary ---
Author Organization [employer] Address [address] [facility] 7t [place] [address] Care Team Providers Care Tire Service Technician Name Role Phone Ashwin Evy JULES Primary Care Provider [phone] Romeo Echavarria RN Unavailable [phone] Romeo Echavarria RN Unavailable [phone] Scar Pimentel RN Unavailable [phone] Tawny Frias Unavailable Encounter Details Date Type Department Care Team (Late st Contact Info) Description 03/31/2025 Orders Only [place] [address] [place] [address] Provider, MD Pearl Social History Tobacco Use [...] Description 10/02/2025 11:45 AM EST Office Visit [facility] [place] [address] [place] [address] 10/16/2025 9:00 AM EST Office Visit [address] [address] Evy Christopher ANP [address] [place] [address] documented as of this encounter Procedures Procedure [...] documented as of this encounter Care Teams Tire Service Technician Relationship Specialty Start Date End Date Evy Christopher ANP [address] [place] [address] PCP - General Family Medicine 06/20/21 Romeo Echavarria, RN [address] [facility] [place] [address] Juice Bar Team MemberHelpdesk Manager 12/25/24 05/07/25 Romeo Echavarria, SUKHWINDER [address] [place] [address] Registered Nurse Family Medicine 04/28/25 04/28/25 Scar Pimentel RN [address] [place] [address] [place] [address] Registered Nurse Family Medicine 07/13/25 Tawny Frias 07/13/25 documented as of this encounter
--- OUTSIDE RECORDS SUMMARY | 2025-09-16 18:43 | XMS_ITS | Encounter Summary ---
Author Organization [employer] Address [address] [facility] 7t [place] [address] Care Team Providers Care Fermentation Operator Name Role Phone Evy Christopher Primary Care Provider Romeo Echavarria RN Unavailable [phone] Romeo Echavarria RN Unavailable [phone] Scar Pimentel RN Unavailable [phone] Tawny Frias Unavailable Reason for Visit * Reason Onset Date Comments Call Back Request 04/23/2024 Encounter Details Date Type Department Care Team (Late st Contact Info) Description 04/23/2024 Telephone [facility] [address] [place], [place] [phone] Evy Christopher ANP [address] [place], [place] [phone] Call Back Request Social History Tobacco Use [...] Description 10/02/2025 11:45 AM EST Office Visit [facility] [address] [place] [address] Clarence Anderson MD [address] [place] [address] 10/16/2025 9:00 AM EST Office Visit [facility] [address] [place] [phone] Evy Christopher ANP [address] [place] [address] documented as of this encounter Visit Diagnoses Not on filedocumented in this encounter Additional Health Concerns Assessment Noted Time PHQ-9 Depression Total Score: 13 023 2:43 PM EST documented as of this encounter Care Teams Fermentation Operator Relationship Specialty Start Date End Date Evy Christopher ANP [address] [place] [address] PCP - General Family Medicine 06/20/21 Romeo Echavarria, RN [address] [place] [address] Commercial AdministratorCommission Sales Associate 12/25/24 05/07/25 Romeo Echavarria, SUKHWINDER [address] [place] [address] Registered Nurse Family Medicine 04/28/25 04/28/25 Scar Pimentel, SUKHWINDER [address] [place] [address] Registered Nurse Family Medicine 07/13/25 Tawny Frias 07/13/25 documented as of this encounter
--- OUTSIDE RECORDS SUMMARY | 2025-09-16 18:43 | XMS_ITS | Encounter Summary ---
Author Organization [employer] Address [address] [facility] 7[address] [place] [address] Care Team Providers Care Concrete Boom Operator Name Role Phone Evy Christopher Primary Care Provider [phone] Scar Pimentel RN Unavailable [phone] Tawny Frias Unavailable Reason for Visit * Reason Onset Date Comments Results 09/02/2025 Encounter Details Date Type Department Care Team (Latest Contact Info) Description 09/02/2025 Results Follow-Up [facility] [address] [place], [place] [phone] Evy Christopher ANP [address] [place] [address] Lipid Panel, Standard, Comprehensive Metabolic Panel, Lipase Social History Tobacco Use Types Packs/Day Years [...] the past 12 months, has t he [employer], gas, oil or water [employer] threatened to shut off services in your [...] encounter Miscellaneous Notes * Telephone Encounter - Estelle Flynn RN - 09/02/2025 4:16 PM EST Telephone call placed to pt utilizing S #[id number] regarding below results and POC. Pt confirmed labswere done fasting. She reports that she has not been taking rosuvastatin because she requested a refill but it was never sent. Informed PCP sent refill today to her [facility] [employer]. Advised to take before bedtime every night to increase efficacy. Pt verbalized understanding. Informed the restof r labs look good, LFTs normalized. Pt verbalized understanding and denied having any further questions or concerns at this time. * Telephone Encounter - Estelle Flynn RN - 09/02/2025 3:29 PM EST ----- Message from Evy Christopher sent at 09/02/2025 11:47 AM EST ----- Were these fasting? If so, absolutely needs to re-start statin. Have sent rosuvastatin 40mg to resume. LFTs have normalized. thanks ----- Message ----- From: Interface, Lab Results In Sent: 08/31/2025 12:21 PM EST To: JORGE A Bernal * Result Encounter Note - JORGE A Bernal - 09/02/2025 11:47 AM EST Were these fasting? If so, absolutely needs to re-start statin. Have sent rosuvastatin 40mg to resume. LFTs have normalized. thanks documented in this encounter Plan of Treatment Upcoming Encounters Date Type Department Care Team (Late st Contact Info) Description 10/02/2025 11:45 AM EST Office Visit [address] [address] Clarence Anderson MD [address] [place] [address] 10/16/2025 9:00 AM EST Office Visit [address] [address] Evy Christopher ANP [address] [place] [address] documented as of this encounter Visit Diagnoses Diagnosis Mixed hyperlipidemia- Primary documented in this encounter Additional Health Concerns Assessment Noted Time PHQ-9 Depression Total Score: 0 08/04/20 25 11:55 AM EDT documented as of this encounter Care Teams Concrete Boom Operator Relationship Specialty Start Date End Date Evy Christopher ANP [address] [place] [address] PCP - General Family Medicine 06/20/21 Scar Pimentel RN [address] [place] [address] Registered Nurse Family Medicine 07/13/25 Tawny Frias 07/13/25 documented as of this encounter
--- OUTSIDE RECORDS SUMMARY | 2025-09-16 18:43 | XMS_ITS | Encounter Summary ---
Author Organization [employer] Address 75 [facility] 7t [place] [address] Care Team Providers Care Production Supervisor Trainee Name Role Phone Trevor Medina Primary Care Provider [phone] Scar Pimentel RN Unavailable [phone] Tawny Frias Unavailable Encounter Details Date Type Department Care Team ([facility] st Contact Info) Description 09/15/2025 Orders Only [facility] [address] [place], [place] [phone] Trevor Medina ANP [address] [place], [place] [phone] Social History Tobacco Use Types Packs/Day Years [...] Description 10/02/2025 11:45 AM EST Office Visit [facility] [address] [place] [address] Clarence Anderson MD [address] [place] [address] 10/16/2025 9:00 AM EST Office Visit [facility] [address] [place] [address] Trevor Medina ANP 230 [place] [address] documented as of this encounter Procedures Procedure Name Priority Date/Time Associated Diagnosis Comments BI US BREAST LIMITED BILATERAL Routine 09/16/2025 10:11 AM EST BI MAMMOGRAM DIAG W LUKAS W IMPLANTS JODY Routine 09/15/2025 1:22 PM EST documented in this encounter Results * BI US Breast Limited Bilateral (09/16/2025 10:11 AM EST) Anatomical Region Laterality Modality Breast Bilateral Ultrasound 09/16/2025 10:1 1 AM EST Narrative 09/16/2025 11:24 AM EST [facility] [address] [place] [address] Ultrasound Report Signed Patient: Afua Hector MR#: [id number] : 1980 Acct:[id number] Age/Sex: 45 / F ADM Date: 09/16/25 Loc: HO.MAMMO Attending Dr: Trevor Medina NP Ordering Physician: TREVOR MEDINA NP Date of Service: 09/16/25 Procedure(s): US Breast BI Limited Mamm Only Accession Number(s): [id number] cc: TREVOR MEDINA NP Reason for Exam: BILATERAL BREAST PAIN EXAMINATION: US DIAGNOSTIC ULTRASOUND BREAST, BILATERAL CLINICAL INFORMATION: Bilateral lower outer quadrant pain for one month. Patient came in for diagnostic mammography yesterday with benign findings.. COMPARISON: Comparison is made with relevant prior imaging. TECHNIQUE: Ultrasound of the breast is performed with real-time ivory scale imaging and color Doppler. FINDINGS: Targeted color Doppler ultrasound scanning in the lower outer quadrant of the right breast images normal fibronodular breast tissue. There is no sonographic abnormal findings. Targeted color Doppler ultrasound scanning in the lower outer quadrant of the left breast demonstrates normal fibronodular breast tissue. There is no sonographic abnormal finding. Results are discussed with the patient at time of visit. US/US Breast BI Limited Mamm Only IMPRESSION: No sonographic abnormal finding bilateral lower outer quadrants to account for the patient's breast pain. Recent diagnostic mammogram yesterday was benign. Recommend clinical evaluation and follow-up. ASSESSMENT: BI-RADS 1: Negative RECOMMENDATION: Recommend clinical evaluation and followup This patient's information was entered into a reminder system with a target due date for their next mammogram. Electronically signed by: Milla Craig DO 09/16/2025 11:21 AM EST Dictated By: Milla Craig DO Signed By: <Electronically signed by Milla Craig DO in OV> 09/16/25 1121 DD/ 1011 TD/TT: 09/16/25 1032 Waxed Bag Machine Operator: Procedure Note Donotuseinterpreter, Image - 09/16/20[facility] [address] [place] [address] Ultrasound Report Signed Patient: Afua Hector LMR#: [id number] : 1980Acct:[id number] Age/Sex: 45 / FADM Date: 09/16/25 Loc: HO.MAMMO Attending Dr: Trevor Medina NP Ordering Physician: TREVOR MEDINA NP Date of Service: 09/16/25 Procedure(s): US Breast BI Limited Mamm Only Accession Number(s): [id number] cc: TREVOR MEDINA NP Reason for Exam: BILATERAL BREAST PAIN EXAMINATION: US DIAGNOSTIC ULTRASOUND BREAST, BILATERAL CLINICAL INFORMATION: Bilateral lower outer quadrant pain for one month. Patient came in for diagnostic mammography yesterday with benign findings.. COMPARISON: Comparison is made with relevant prior imaging. TECHNIQUE: Ultrasound of the breast is performed with real-time ivory scale imaging and color Doppler. FINDINGS: Targeted color Doppler ultrasound scanning in the lower outer quadrant of the right breast images normal fibronodular breast tissue. There is no sonographic abnormal findings. Targeted color Doppler ultrasound scanning in the lower outer quadrant of the left breast demonstrates normal fibronodular breast tissue. There is no sonographic abnormal finding. Results are discussed with the patient at time of visit. US/US Breast BI Limited Mamm Only IMPRESSION: No sonographic abnormal finding bilateral lower outer quadrants to account for the patient's breast pain. Recent diagnostic mammogram yesterday was benign. Recommend clinical evaluation and follow-up. ASSESSMENT: BI-RADS 1: Negative RECOMMENDATION: Recommend clinical evaluation and followup This patient's information was entered into a reminder system with a target due date for their next mammogram. Electronically signed by: Milla Craig DO 09/16/2025 11:21 AM [facility] Dictated By: Milla Craig DO Signed By: <Electronically signed by Milla Craig DO in OV> 09/16/25 1121 DD/ 1011 TD/TT: 09/16/25 1032 Waxed Bag Machine Operator: us Trevor Medina ANP IMG US PROCEDURES Final Result * BI Mammogram Diag w/ Lukas w/ Implants Jody (09/15/2025 1:22 PM EST) Anatomical Region Laterality Modality Mammography 09/15/2025 1:22 PM EST Narrative 09/15/2025 4:00 PM EST [facility] [place], [place] [address] Mammography Report Signed Patient: Afua Hector MR#: [id number] : 1980 Acct:[id number] Age/Sex: 45 / F ADM Date: 09/15/25 Loc: HO.MAMMO Attending Dr: Trevor Medina NP Ordering Physician: TREVOR MEDINA NP Results: 0Incomplete - Need Additional Imaging Evaluation Date of Service: 09/15/25 Follow Up: Additional Imagi ng Procedure(s): MM tomosynthesis diag imp BI Accession Number(s): [id number] cc: TREVOR MEDINA NP Reason For Exam: BILAT BR PAIN EXAMINATION(S): MM DIAGNOSTIC DIGITAL BREAST TOMOSYNTHESIS, BILATERAL CLINICAL INFORMATION: Bilateral breast pain. According to patient, pain in the lateral and medial aspect for one month. COMPARISON: Comparison made to multiple prior, most recent November 17, 2024, and most remote September 29, 2022. TECHNIQUE: Digital breast tomosynthesis is performed in both the mediolateral oblique and craniocaudal views along with computer-aided detection (CAD). Digital breast tomosynthesis is performed in implant-displaced craniocaudal and implant-displaced mediolateral oblique views along with computer-aided detection CAD). Synthesized 2D images are generated from the tomosynthesis. FINDINGS: BREAST COMPOSITION: The breasts are heterogeneously dense, which may obscure small masses. RIGHT BREAST: Retropectoral saline implant is intact. No significant masses, suspicious calcifications or other abnormalities are seen. LEFT BREAST: Retropectoral saline implant is intact. No significant masses, suspicious calcifications or other abnormalities are seen. MM/MM tomosynthesis diag imp BI IMPRESSION: BILATERAL BREASTS: Benign, no mammographic evidence of malignancy. However, the patient was not able to stay for the scheduled bilateral targeted ultrasound. The bilateral targeted ultrasound to evaluated the bilateral focal pain will be rescheduled. ASSESSMENT: BI-RADS: Category 0: Incomplete - Need additional Imaging Evaluation RECOMMENDATION: Additional Imaging required (bilateral targeted ultrasounds). Results were provided to the patient at time of visit by the technologist. This patient's information was entered into a reminder system with a target due date for their next mammogram. Electronically signed by: Hua Collins MD 09/15/2025 03:57 PM [facility] Dictated By: Hua Collins MD Signed By: <Electronically signed by Hua Collins MD in OV> 09/15/25 1557 DD/ 1322 TD/TT: 09/15/25 1335 Waxed Bag Machine Operator: Procedure Note Donotuseinterpreter, Image - 09/15/2025 [facility] [address] [place] [address] Mammography Report Signed Patient: Afua Hector LMR#: [id number] : 1980Acct:[id number] Age/Sex: 45 / FADM Date: 09/15/25 Loc: HO.MAMMO Attending Dr: Trevor Medina NP Ordering Physician: TREVOR MEDINA NPResults: 0Incomplete - Need Additional Imaging Evaluation Date of Service: 09/15/25Follow Up: Additional Imagi ng Procedure(s): MM tomosynthesis diag imp BI Accession Number(s): [id number] cc: TREVOR MEDINA NP Reason For Exam: BILAT BR PAIN EXAMINATION(S): MM DIAGNOSTIC DIGITAL BREAST TOMOSYNTHESIS, BILATERAL CLINICAL INFORMATION: Bilateral breast pain. According to patient, pain in the lateral and medial aspect for one month. COMPARISON: Comparison made to multiple prior, most recent November 17, 2024, and most remote September 29, 2022. TECHNIQUE: Digital breast tomosynthesis is performed in both the mediolateral oblique and craniocaudal views along with computer-aided detection (CAD). Digital breast tomosynthesis is performed in implant-displaced craniocaudal and implant-displaced mediolateral oblique views along with computer-aided detection CAD). Synthesized 2D images are generated from the tomosynthesis. FINDINGS: BREAST COMPOSITION: The breasts are heterogeneously dense, which may obscure small masses. RIGHT BREAST: Retropectoral saline implant is intact. No significant masses, suspicious calcifications or other abnormalities are seen. LEFT BREAST: Retropectoral saline implant is intact. No significant masses, suspicious calcifications or other abnormalities are seen. MM/MM tomosynthesis diag imp BI IMPRESSION: BILATERAL BREASTS: Benign, no mammographic evidence of malignancy. However, the patient was not able to stay for the scheduled bilateral targeted ultrasound. The bilateral targeted ultrasound to evaluated the bilateral focal pain will be rescheduled. ASSESSMENT: BI-RADS: Category 0: Incomplete - Need additional Imaging Evaluation RECOMMENDATION: Additional Imaging required (bilateral targeted ultrasounds). Results were provided to the patient at time of visit by the technologist. This patient's information was entered into a reminder system with a target due date for their next mammogram. Electronically signed by: Hua Collins MD 09/15/2025 03:57 PM [facility] Workstation: [employer] Dictated By: Hua Collins MD Signed By: <Electronically signed by Hua Collins MD in OV> 09/15/25 1557 DD/ 1322 TD/TT: 09/15/25 1335 Waxed Bag Machine Operator: Trevor JULES IMSebastian BI PROCEDURES Final Result documented in this encounter Visit Diagnoses Not on filedocumented in this encounter Additional Health Concerns Assessment Noted Time PHQ-9 Depression Total Score: 0 08/04/20 11:55 AM EDT documented as of this encounter Care Teams Production Supervisor Trainee Relationship Specialty Start Date End Date Trevor Medina ANP [address] [place] [address] PCP - General Family Medicine 06/20/21 Scar Pimentel, SUKHWINDER [address] [place] [address] Registered Nurse Family Medicine 07/13/25 Tawny Frias 07/13/25 documented as of this encounter
--- OUTSIDE RECORDS SUMMARY | 2025-09-16 18:43 | XMS_ITS | Encounter Summary ---
Author Organization [employer] Address 75 [facility] 7t [place] [address] Care Team Providers Care Paper Box Maker Name Role Phone Evy Christopher Primary Care Provider [phone] Scar Pimentel RN Unavailable [phone] Tawny Frias Unavailable Reason for Visit * Reason Onset Date Comments No Show 09/11/2025 Encounter Details Date Type Department Care Team (Late st Contact Info) Description 09/11/2025 Telephone [facility] [address] [place], [place] [phone] Evy Christopher ANP [address] [place], [place] [phone] No Show Social History Tobacco Use Types Packs/Day Years [...] the past 12 months, has t he [employer], gas, oil or water [employer] threatened to shut off services in your [...] encounter Miscellaneous Notes * Telephone Encounter - Albertina Becker RN - 09/14/2025 12:41 PM EST TC placed to the pt and LVM to call back the office regarding missed appointment on 09/11/2025 withPCP. * Telephone Encounter - Foreign Frias - 09/11/2025 10:49 AM EST Patient no showed to Hospital F/U on 09/11/25. documented in this encounter Plan of Treatment Upcoming Encounters Date Type Department Care Team (Late st Contact Info) Description 10/02/2025 11:45 AM EST Office Visit [facility] [address] [place] [address] Clarence Anderson MD [address] [place] [address] 10/16/2025 9:00 AM EST Office Visit [facility] [address] [place], [place] [phone] Evy Christopher ANP [address] [place], [place] [phone] documented as of this encounter Visit Diagnoses Not on filedocumented in this encounter Additional Health Concerns Assessment Noted Time PHQ-9 Depression Total Score: 0 08/04/20 11:55 AM EDT documented as of this encounter Care Teams Paper Box Maker Relationship Specialty Start Date End Date Evy Christopher ANP [address] [place], [place] [phone] PCP - General Family Medicine 06/20/21 Scar Pimentel, SUKHWINDER [address] [place] [address] Registered Nurse Family Medicine 07/13/25 Tawny Frias 07/13/25 documented as of this encounter
--- OUTSIDE RECORDS SUMMARY | 2025-09-16 18:43 | XMS_ITS | Encounter Summary ---
Author Organization [employer] Address 75 [facility] 7t [place] [address] Care Team Providers Care Plastics Engineering Teacher Name Role Phone Evy Christopher Primary Care Provider Romeo Echavarria RN Unavailable [phone] Romeo Echavarria RN Unavailable [phone] Scar Pimentel RN Unavailable [phone] Tawny Frias Unavailable Reason for Visit * Reason Onset Date Comments FYI 06/29/2023 Encounter Details Date Type Department Care Team (Late st Contact Info) Description 06/29/2023 Telephone [facility] [address] [place], [place] [phone] Evy Christopher ANP 230 [place], [place] [phone] Social History Tobacco Use Types Packs/Day Years [...] 06/29/2023 2:50 PM EDT Tre Mendoza at [facility] calling to inform PCP of custodial plan of care stoppedbut patient will continue with PT for 2 visit in the week. documented in this encounter Plan of Treatment Upcoming Encounters Date Type Department Care Team (Late st Contact Info) Description 10/02/2025 11:45 AM EST Office Visit [address] [address] Clarence Anderson MD 230 [place] [address] 10/16/2025 9:00 AM EST Office Visit [address] [address] Evy Christopher ANP [address] [place] [address] documented as of this encounter Visit Diagnoses Not on filedocumented in this encounter Care Teams Plastics Engineering Teacher Relationship Specialty Start Date End Date Evy Christopher ANP [address] [place] [address] PCP - General Family Medicine 06/20/21 Romeo Echavarria RN [address] [place] [address] In Store BankerPatent Engineer 12/25/24 05/07/25 Romeo Echavarria RN [address] [place] [address] Registered Nurse Family Medicine 04/28/25 04/28/25 Scar Pimentel, SUKHWINDER [address] [place] [address] Registered Nurse Family Medicine 07/13/25 Tawny Frias 07/13/25 documented as of this encounter
--- OUTSIDE RECORDS SUMMARY | 2025-09-16 18:43 | XMS_ITS | Encounter Summary ---
Author Organization [employer] Address 75 [facility] 7t [place] [address] Care Team Providers Care Tooth Clerk Name Role Phone Evy Christopher JORGE A Primary Care Provider [phone] Romeo Echavarria RN Unavailable [phone] Romeo Echavarria RN Unavailable [phone] Scar Pimentel RN Unavailable [phone] Tawny Frias Unavailable Reason for Visit * Reason Onset Date Comments RCT active request 09/26/2023 Encounter Details Date Type Department Care Team (Late st Contact Info) Description 09/26/2023 Telephone [facility] [address] [place], [place] [phone] Torie Mishra DDS [address] [place] [address] RCT active request Social History Tobacco Use [...] Description 10/02/2025 11:45 AM EST Office Visit [facility] [address] [place] [address] Clarence Anderson MD 230 [place] [address] 10/16/2025 9:00 AM EST Office Visit [facility] [address] [place] [address] Evy Christopher, JORGE A [address] [place] [address] documented as of this encounter Visit Diagnoses Not on filedocumented in this encounter Additional Health Concerns Assessment Noted Time PHQ-9 Depression Total Score: 13 09/11/ 023 2:43 PM EST documented as of this encounter Care Teams Tooth Clerk Relationship Specialty Start Date End Date Evy Christopher ANP [address] [place] [address] PCP - General Family Medicine 06/20/21 Romeo Echavarria, RN [address] [place] [address] Office CorrespondentBalloon Tester 12/25/24 05/07/25 Romeo Echavarria, RN [address] [place] [address] Registered Nurse Family Medicine 04/28/25 04/28/25 Scar Pimentel, RN [address] [place] [address] Registered Nurse Family Medicine 07/13/25 Tawny Frias 07/13/25 documented as of this encounter
--- OUTSIDE RECORDS SUMMARY | 2025-09-16 18:43 | XMS_ITS | Encounter Summary ---
Author Organization [employer] Address 75 [facility] 7t [place] [address] Care Team Providers Care Marketing Reporting Analyst Name Role Phone Evy Christopher Primary Care Provider Romeo Echavarria RN Unavailable [phone] Romeo Echavarria RN Unavailable [phone] Scar Pimentel RN Unavailable [phone] Tawny Frias Unavailable Encounter Details Date Type Department Care Team ([facility] Contact Info) Description 12/04/2022 Telephone [facility] 230 [place], [place] [phone] Evy Christopher ANP [address] [place], [place] [phone] Social History Tobacco Use Types Packs/Day Years [...] Upcoming Encounters Date Type Department Care Team ([facility] Contact Info) Description 10/02/2025 11:45 AM EST Office Visit [address] [address] Clarence Anderson MD [address] [place] [address] 10/16/2025 9:00 AM EST Office Visit [address] [address] Evy Christopher ANP [address] [place] [address] documented as of this encounter Visit Diagnoses Not on filedocumented in this encounter Care Teams Marketing Reporting Analyst Relationship Specialty Start Date End Date Evy Christopher ANP [address] [place] [address] PCP - General Family Medicine 06/20/21 Romeo Echavarria RN [address] [place] [address] Marina Sales And Service SupervisorSludge Control Attendant 12/25/24 05/07/25 Romeo Echavarria RN [address] [place] [address] Registered Nurse Family Medicine 04/28/25 04/28/25 Scar Pimentel RN [address] [place] [address] Registered Nurse Family Medicine 07/13/25 Tawny Frias 07/13/25 documented as of this encounter
--- OUTSIDE RECORDS SUMMARY | 2025-09-16 18:43 | XMS_ITS | Encounter Summary ---
Author Organization [facility] Address [address] [place] [address] Care Team Providers Care Telecommunications Specialist Name Role Phone Evy Christopher NP Primary Care Provider [phone] Reason for Visit * Reason Onset Date Comments Med Refill 08/31/2025 Zepbound w/titra tion Encounter Details Date Type Department Care Team ([facility] st Contact Info) Description 08/31/2025 Telephone [facility] - [place] [address] [facility] [address] [place] [address] Paul Rod MD [address] [place] [phone] Social History Tobacco Use Types Packs/Day Years [...] 6:42 PM EDT Tammi Robb RN * Do you have serious difficulty walking or climbing stairs? Answer Date of Assessment Author No 05/27/2025 6:42 PM EDT Tammi Robb RN * Do you have [...] Entry Date Author No 05/27/2025 6:42 PM BAILEYT Tammi Robb RN documented in this encounter Progress Notes * Dimple Whitmore - 08/31/2025 1:56 PM EST Patient did well on Zepbound 10 mgs and would like a refill with titration. If appropriate, please send script for Zepbound 12.5 mgs to their pharmacy. The patient does have a follow up in 10/05/2025 documented in this encounter Plan of Treatment Upcoming Encounters Date Type Department Care Team (Late st Contact Info) Description 10/05/2025 9:15 AM EST Office Visit B[facility] Surgery [address] [phone] Mily Cardenas MD [address] [place] [phone] 12/17/2025 10:15 AM EST Office Visit [facility] [address] [phone] Paul Rod MD 230 [place] [phone] documented as of this encounter Visit Diagnoses Not on filedocumented in this encounter Care Teams Telecommunications Specialist Relationship Specialty Start Date End Date Evy Christopher NP 230 [place] [address] PCP - General 10/26/24 documented as of this encounter
--- OUTSIDE RECORDS SUMMARY | 2025-09-16 18:43 | XMS_ITS | Encounter Summary ---
Author Organization [employer] Address 75 [facility] 7t [place] [address] Care Team Providers Care Senior Ui Developer Name Role Phone Evy Christopher Primary Care Provider Romeo Echavarria RN Unavailable [phone] Romeo Echavarria RN Unavailable [phone] Scar Pimentel RN Unavailable [phone] Tawny Frias Unavailable Reason for Visit * Reason Onset Date Comments Medication Question 09/26/2023 Encounter Details Date Type Department Care Team (Late st Contact Info) Description 09/26/2023 Telephone [facility] MEDICINE 230 [place], [place] [phone] Evy Christopher ANP 230 [place], [place] [phone] Medication Question Social History Tobacco Use Types [...] being too nervous. Please contact pt at [phone] Khmer Speaker documented in this encounter Plan of Treatment Upcoming Encounters Date Type Department Care Team (Late st Contact Info) Description 10/02/2025 11:45 AM EST Office Visit [facility] [address] [place] [address] Clarence Anderson MD [address] [place] [address] 10/16/2025 9:00 AM EST Office Visit [facility] [address] [place] [address] Evy Christopher ANP [address] [place] [address] documented as of this encounter Visit Diagnoses Not on filedocumented in this encounter Additional Health Concerns Assessment Noted Time PHQ-9 Depression Total Score: 13 09/11/ 023 2:43 PM EST documented as of this encounter Care Teams Senior Ui Developer Relationship Specialty Start Date End Date Evy Christopher ANP [address] [place] [address] PCP - General Family Medicine 06/20/21 Romeo Echavarria, SUKHWINDER [address] [place] [address] Air Pollution AuditorMetal Cnc Operator 12/25/24 05/07/25 Romeo Echavarria RN [address] [place] [address] Registered Nurse Family Medicine 04/28/25 04/28/25 Scar Pimentel RN [address] [place] [address] Registered Nurse Family Medicine 07/13/25 Tawny Frias 07/13/25 documented as of this encounter
--- OUTSIDE RECORDS SUMMARY | 2025-09-16 18:43 | XMS_ITS | Patient Health Record ---
Author Organization [facility] Address [address] [place] [address] Care Team Providers Care Manager Inventory Name Role Phone [facility] Primary Care Provider Giovany Townsend Jr Unavailable Results Component Value Reference Range Flag Notes MR MRCP Reviewed date:04/29/2025 07:33:50 AM Interpretation: Performing Lab: Notes/Report: [address] [address] Magnetic Resonance Report Signed Patient: Joseph Colin MR#: [id number] : 1980 Acct:[id number] Age/Sex: 44 / F ADM Date: 04/28/25 Loc: HO.S3 379-[address]: Lam Hernandez MD Ordering Physician: Giovany Garrison MD Date of Service: 04/28/25 Procedure(s): MR MRCP Accession Number(s): [id number] cc: Giovany Garrison MD; TREVOR MEDINA NP [...] in OV> 04/28/251905 DD/ 03 TD/TT: 04/28/251903 Electrical Research Engineer: Liver Panel Reviewed date:04/29/2025 07:36:37 AM Interpretation: Performing Lab:[facility], [address] [place] [id number] Notes/Report: Bilirubin Total 1.2 0.0-1.0 mg/dL H Bilirubin Direct 0.3 0.0-0.5 mg/dL N Aspartate Amino Transferase 198 5-31 U/L H Alanine Aminotransferase 160 0-31 U/L H Total Protein 5.9 6.5-8.0 g/dL L Albumin Level 3.4 3.5-5.0 g/dL L Alkaline Phosphatase 88 39-117 U/L N Basic Metabolic Panel Reviewed date:04/29/2025 07:36:14 AM Interpretation: Performing Lab:[facility], [address] [place] [phone] Notes/Report: Sodium 141 135-145 mmol/L N Potassium 3.8 3.3-5.1 mmol/L N Chloride 107 96-108 mmol/L N Carbon Dioxide 28 22-29 mmol/L N Anion Gap 10 12-20 L Blood Urea Nitrogen 5 9-16 mg/dL L Creatinine 0.61 0.5-1.4 mg/dL N Creatinine Clr Calc Pharmacy 114.8 Provided height and weight: 160.02 cm, 79.1 kg. eGFR (calculated from the MDRD study equation) and eCrCl (calculated from the Cockcroft-Gault equation) are based on different parameters and may not yield comparable results. If eCrCl result is absurd, please check patient's height/weight. Estimated Glomerular Filt Rate > 60 Chronic Kidney Disease: Estimated GFR < 60 mL/min/1.73m2 Severe Kidney Disease: Estimated GFR < 15 mL/min/1.73m2 Glucose Random 81 60-115 mg/dL N Calcium 8.2 8.4-10.2 mg/dL L Magnesium Reviewed date:04/29/2025 07:36:55 AM Interpretation: Performing Lab:[facility], [address] [place] [id number] Notes/Report: Magnesium 2.0 1.6-2.6 mg/dL N Reason For Referral No Information Plan Of Treatment No Information Insurance Providers Payer Name Payer Address Payer Phone Subscriber Number Group Number Insured Name Patient Relationship to Insured Coverage Start Date Coverage End Date [facility] [address] [place] [phone] [id number] JOSEPH COLIN Self - patient is the insured
--- OUTSIDE RECORDS SUMMARY | 2025-09-16 18:44 | XMS_ITS | Encounter Summary ---
Author Organization [employer] Address [address] [facility] 7t [place] [address] Care Team Providers Care Manual Plate Filler Name Role Phone Evy Christopher Primary Care Provider Romeo Echavarria RN Unavailable [phone] Romeo Echavarria RN Unavailable [phone] Scar Pimentel RN Unavailable [phone] Tawny Frias Unavailable Reason for Visit * Reason Onset Date Comments Durable Medical Equipment 07/02/2024 Encounter Details Date Type Department Care Team (Late st Contact Info) Description 07/02/2024 Telephone [facility]INE [address] [place], [place] [phone] vEy Christopher ANP 230 [place], [place] [phone] Durable Medical Equipment Social History Tobacco Use [...] etcand if anything else is needed the munitions handler supervisor will reach out to us. Please call patient and inform that isaiah is working on processing the order. We have sent everything to them they are working on it. If she has any questions she can call them at [phone]. * Telephone Encounter - Tony Frias - 07/02/2024 3:53 PM EDT Tc from pt requesting status on CPAP machine. Please contact pt at [phone]. (Bahamian Speaker) documented in this encounter Plan of Treatment Upcoming Encounters Date Type Department Care Team (Late st Contact Info) Description 10/02/2025 11:45 AM EST Office Visit [facility]INE [address] [place] [address] Clarence Anderson MD 230 [place] [address] 10/16/2025 9:00 AM EST Office Visit [facility] [address] [place] [address] Evy Christopher ANP 230 [place] [address] documented as of this encounter Visit Diagnoses Not on filedocumented in this encounter Additional Health Concerns Assessment Noted Time PHQ-9 Depression Total Score: 2 05/23/20 24 9:49 AM EDT documented as of this encounter Care Teams Manual Plate Filler Relationship Specialty Start Date End Date Evy Christopher ANP [address] [place] [address] PCP - General Family Medicine 06/20/21 Romeo Echavarria RN [address] [facility] [place] [address] Corporate Sales ManagerMachine Maintenance Repairer 12/25/24 05/07/25 Romeo Echavarria RN [address] [facility] [place] [address] Registered Nurse Family Medicine 04/28/25 04/28/25 Scar Pimentel RN [address] [place] [address] Registered Nurse Family Medicine 07/13/25 Tawny Frias 07/13/25 documented as of this encounter
--- OUTSIDE RECORDS SUMMARY | 2025-09-16 18:44 | XMS_ITS | Encounter Summary ---
Author Organization [employer] Address [address] 7t [place] [address] Care Team Providers Care Primer Powder Blender Wet Name Role Phone Evy Christopher Primary Care Provider Romeo Echavarria RN Unavailable [phone] Romeo Echavarria RN Unavailable [phone] Scar Pimentel RN Unavailable [phone] Tawny Frias Unavailable Encounter Details Date Type Department Care Team (Late st Contact Info) Description 10/16/2024 Telephone [facility] MEDICINE 230 [place], [place] [phone] Evy Christopher ANP 230 [place], [place] [phone] Social History Tobacco Use Types Packs/Day Years [...] the past 12 months, has t he [employer], gas, oil or water [employer] threatened to shut off services in your [...] Description 10/02/2025 11:45 AM EST Office Visit [facility]INE [address] [place] [address] Clarence Anderson MD [address] [place] [address] 10/16/2025 9:00 AM EST Office Visit [facility]INE [address] [place] [address] Evy Christopher ANP [address] [place] [address] documented as of this encounter Visit Diagnoses Not on filedocumented in this encounter Additional Health Concerns Assessment Noted Time PHQ-9 Depression Total Score: 2 05/23/20 24 9:49 AM EDT documented as of this encounter Care Teams Primer Powder Blender Wet Relationship Specialty Start Date End Date Evy Christopher ANP [address] [place] [address] PCP - General Family Medicine 06/20/21 Romeo Echavarria, RN [address] [place] [address] Engraver PantographLong Winder Tender 12/25/24 05/07/25 Romeo Echavarria, SUKHWINDER 505 [place] [address] Registered Nurse Family Medicine 04/28/25 04/28/25 Scar Pimentel, SUKHWINDER 505 [place] [address] Registered Nurse Family Medicine 07/13/25 Tawny Frias 07/13/25 documented as of this encounter
--- OUTSIDE RECORDS SUMMARY | 2025-09-16 18:44 | XMS_ITS ---
Author Organization [employer] Address [address] [facility] 7t [place] [address] Care Team Providers Care Permit Review Assistant Name Role Phone Evy Christopher Primary Care Provider [phone] Scar Pimentel RN Unavailable [phone] Tawny Frias Unavailable CM Complex Status:Enrolled (Active) Start date:07/13/2025 Enrollment date:08/04/2025 Enrollment reason:ADT Feed Overview ED- Pt went to [facility] ED on 07/10/25. Case Team Name Relationship Phone Scar Pimentel RN(Responsible Staff) Registered Nurse [phone] Continued Care and Services Coordination
--- OUTSIDE RECORDS SUMMARY | 2025-09-16 18:44 | XMS_ITS | Encounter Summary ---
Author Organization [employer] Address [address] [facility] 7t [place] [address] Care Team Providers Care Wire Threader Name Role Phone Ashwin Evy JULES Primary Care Provider [phone] Romeo Echavarria RN Unavailable [phone] Romeo Echavarria RN Unavailable [phone] Scar Pimentel RN Unavailable [phone] Tawny Frias Unavailable Encounter Details Date Type Department Care Team (Late st Contact Info) Description 09/11/2024 Orders Only [facility] [address] [place] [address] Provider, MD Pearl Social History Tobacco Use [...] Description 10/02/2025 11:45 AM EST Office Visit [facility]ICINE [address] [place] [address] Clarence Anderson MD [address] [place] [address] 10/16/2025 9:00 AM EST Office Visit [facility] [address] [place] [address] Evy Christopher ANP [address] [place] [address] documented as of this encounter Procedures Procedure [...] documented as of this encounter Care Teams Wire Threader Relationship Specialty Start Date End Date Evy Christopher ANP 230 [place] [address] PCP - General Family Medicine 06/20/21 Romeo Echavarria, RN [address] [place] [address] Digital Account SupervisorPyrotechnician 12/25/24 05/07/25 Romeo Echavarria, RN 505 [place] [address] Registered Nurse Family Medicine 04/28/25 04/28/25 Scar Pimentel, SUKHWINDER [address] [place] [address] Registered Nurse Family Medicine 07/13/25 Tawny Frias 07/13/25 documented as of this encounter
--- OUTSIDE RECORDS SUMMARY | 2025-09-16 18:44 | XMS_ITS | Encounter Summary ---
Author Organization [employer] Address [address] [facility] 7t [place] [address] Care Team Providers Care Entry Level Sales Representative Name Role Phone Christopher Evy JULES Primary Care Provider [phone] Scar Pimentel RN Unavailable [phone] Tawny Frias Unavailable Encounter Details Date Type Department Care Team (Late st Contact Info) Description 05/28/2025 Orders Only [facility] 230 [place] [address] ProviderPearl MD Social History Tobacco Use Types [...] Description 10/02/2025 11:45 AM EST Office Visit [facility] MEDICINE [address] [place] [address] Clarence Anderson MD [address] [place] [address] 10/16/2025 9:00 AM EST Office Visit [facility]INE [address] [place] [address] Evy Christopher ANP [address] [place] [address] documented as of this encounter Procedures Procedure [...] documented as of this encounter Care Teams Entry Level Sales Representative Relationship Specialty Start Date End Date Evy Christopher ANP 230 [place] [address] PCP - General Family Medicine 06/20/21 Scar Pimentel RN [address] [place] [address] Registered Nurse Family Medicine 07/13/25 Tawny Frias 07/13/25 documented as of this encounter
--- OUTSIDE RECORDS SUMMARY | 2025-09-16 18:44 | XMS_ITS | Encounter Summary ---
Author Organization [employer] Address [address] [facility] 7t [place] [address] Care Team Providers Care Hardboard Coating Machine Operator Name Role Phone Evy Christopher Primary Care Provider [phone] Romeo Echavarria RN Unavailable [phone] Romeo Echavarria RN Unavailable [phone] Scar Pimentel RN Unavailable [phone] Tawny Frias Unavailable Reason for Visit * Reason Onset Date Comments Referral 01/22/2025 Encounter Details Date Type Department Care Team (Late st Contact Info) Description 01/22/2025 Telephone [facility] MEDICINE 230 [place], [place] [phone] Evy Christopher ANP 230 [place], [place] [phone] Referral Social History Tobacco Use Types Packs/Day [...] be sent to [facility] FAX [phone] documented in this encounter Plan of Treatment Upcoming Encounters Date Type Department Care Team (Late st Contact Info) Description 10/02/2025 11:45 AM EST Office Visit [facility]INE [address] [place] [address] Clarence Anderson MD 230 [place] [address] 10/16/2025 9:00 AM EST Office Visit [facility] [address] [place] [address] Evy Christopher ANP [address] [place] [address] documented as of this encounter Visit Diagnoses Not on filedocumented in this encounter Additional Health Concerns Assessment Noted Time PHQ-9 Depression Total Score: 2 05/23/20 24 9:49 AM EDT documented as of this encounter Care Teams Hardboard Coating Machine Operator Relationship Specialty Start Date End Date Evy Christopher ANP [address] [place] [address] PCP - General Family Medicine 06/20/21 Romeo Echavarria, RN 505 [place] [address] Taxi Cab DriverSba Underwriter 12/25/24 05/07/25 Romeo Echavarria, RN 505 [place] [address] Registered Nurse Family Medicine 04/28/25 04/28/25 Scar Pimentel, SUKHWINDER 505 [place] [address] Registered Nurse Family Medicine 07/13/25 Tawny Frias 07/13/25 documented as of this encounter
--- OUTSIDE RECORDS SUMMARY | 2025-09-16 18:44 | XMS_ITS | Encounter Summary ---
Author Organization [employer] Address [address] [facility] 7t [place] [address] Care Team Providers Care Leasing Agent Name Role Phone Evy Christopher Primary Care Provider Romeo Echavarria RN Unavailable [phone] Romeo Echavarria RN Unavailable [phone] Scar Pimentel RN Unavailable [phone] Tawny Frias Unavailable Reason for Visit * Reason Onset Date Comments Nurse Triage 02/20/2025 Encounter Details Date Type Department Care Team (Late st Contact Info) Description 02/20/2025 Telephone [facility] MEDICINE 230 [place], [place] [phone] Evy Christopher ANP 230 [place], [place] [phone] Nurse Triage Social History Tobacco Use Types [...] 02/20/2025 9:38 AM EDT Triage call with [facility] glass cutter hand ID [id number] Pt reports a small lump on inner aspect of right thigh. Pt describes area as size of grain of rice and darker color than surrounding skin. Pt reports it is itchy, tender to touch. Pt is advised to come to [facility] for provider to see. Pt agrees with disposition. [facility] hours given open till 4pm today. Insurance [...] become worse * Telephone Encounter - Corrine Jinjesukelby PerazaBlayne - 02/20/2025 8:28 AM EDT Symptom: Leg Swelling - Not From Injury Outcome: Schedule an appointment to be seen within 24 hours Reason: Caller denied all higher acuity questions The caller accepted this outcome. [phone] french documented in this encounter Plan of Treatment Upcoming Encounters Date Type Department Care Team (Late st Contact Info) Description 10/02/2025 11:45 AM EST Office Visit [facility] MEDICINE [address] [place] [address] Clarence Anderson MD [address] [place] [address] 10/16/2025 9:00 AM EST Office Visit [address] [address] Evy Christopher ANP [address] [place] [address] documented as of this encounter Visit Diagnoses Not on filedocumented in this encounter Additional Health Concerns Assessment Noted Time PHQ-9 Depression Total Score: 2 05/23/20 24 9:49 AM EDT documented as of this encounter Care Teams Leasing Agent Relationship Specialty Start Date End Date Evy Christopher ANP [address] [place] [address] PCP - General Family Medicine 06/20/21 Romeo Echavarria RN [address] [place] [address] DishwasherSuperintendent Automotive 12/25/24 05/07/25 Romeo Echavarria RN [address] [place] [address] Registered Nurse Family Medicine 04/28/25 04/28/25 Scar Pimentel RN [address] [place] [address] Registered Nurse Family Medicine 07/13/25 Tawny Frias 07/13/25 documented as of this encounter
--- OUTSIDE RECORDS SUMMARY | 2025-09-16 18:44 | XMS_ITS | Encounter Summary ---
Author Organization [employer] Address [address] [facility] 7t [place] [address] Care Team Providers Care Plug Maker Name Role Phone Evy Christopher ANP Primary Care Provider [phone] Scar Pimentel RN Unavailable [phone] Tawny Frias Unavailable Reason for Visit * Reason Comments Med Refill Encounter Details Date Type Department Care Team (Late st Contact Info) Description 07/06/2025 Refill [facility] MEDICINE 230 [place], [place] [phone] Evy Christopher ANP [address] [place] [address] SHANNA (generalized anxiety disorder) Social History Tobacco [...] Description 10/02/2025 11:45 AM EST Office Visit [facility] MEDICINE [address] [place] [address] Clarence Anderson MD [address] [place] [address] 10/16/2025 9:00 AM EST Office Visit [facility] MEDICINE [address] [place] [address] Evy Christopher ANP [address] [place] [address] documented as of this encounter Visit Diagnoses Diagnosis SHANNA (generalized anxiety disorder) Generalized anxiety disorder documented in this encounter Additional Health Concerns Assessment Noted Time PHQ-9 Depression Total Score: 0 04/02/20 25 11:38 AM EDT documented as of this encounter Care Teams Plug Maker Relationship Specialty Start Date End Date Evy Christopher ANP [address] [place] [address] PCP - General Family Medicine 06/20/21 Scar Pimentel RN 505 [place] [address] Registered Nurse Family Medicine 07/13/25 Tawny Frias 07/13/25 documented as of this encounter
--- OUTSIDE RECORDS SUMMARY | 2025-09-16 18:44 | XMS_ITS ---
Author Organization [facility] [employer] Address [address] [facility] 7t [place] [address] Care Team Providers Care Mill House Supervisor Name Role Phone Evy Christopher Primary Care Provider [phone] Scar Pimentel RN Unavailable [phone] Tawny Frias Unavailable CHW Complex Status:Outreach In Progress (Enrolling) Start date:07/13/2025 Enrollment reason:ADT Feed Overview ED- Pt went to [facility] ED on 07/10/25. Please outreach for enrollment. Case Team Name Relationship Phone Tawny Frias(Responsible Staff) [phone] Continued Care and Services Coordination
--- OUTSIDE RECORDS SUMMARY | 2025-09-16 18:44 | XMS_ITS | Encounter Summary ---
Author Organization [employer] Address [address] [facility] 7t [place] [address] Care Team Providers Care Enterprise Integration Developer Name Role Phone Ashwin Evy JULES Primary Care Provider [phone] Romeo Echavarria RN Unavailable [phone] Romeo Echavarria RN Unavailable [phone] Scar Pimentel RN Unavailable [phone] Tawny Frias Unavailable Encounter Details Date Type Department Care Team (Late st Contact Info) Description 09/23/2024 Orders Only [facility] [address] [place] [address] Provider, MD Pearl Social History Tobacco Use [...] Description 10/02/2025 11:45 AM EST Office Visit [facility] MEDICINE [address] [place] [address] Clarence Anderson MD [address] [place] [address] 10/16/2025 9:00 AM EST Office Visit [facility] MED[facility]INE [address] [place] [address] Evy Christopher ANP 230 [place] [address] documented as of this encounter Procedures Procedure [...] documented as of this encounter Care Teams Enterprise Integration Developer Relationship Specialty Start Date End Date Evy Christopher ANP [address] [place] [address] PCP - General Family Medicine 06/20/21 Romeo Echavarria, RN 505 [place] [address] Java DesignerPoultry Slaughterer 12/25/24 05/07/25 Romeo Echavarria, RN 505 [place] [address] Registered Nurse Family Medicine 04/28/25 04/28/25 Scar Pimentel, SUKHWINDER [address] [place] [address] Registered Nurse Family Medicine 07/13/25 Tawny Frias 07/13/25 documented as of this encounter
--- OUTSIDE RECORDS SUMMARY | 2025-09-16 18:44 | XMS_ITS | Encounter Summary ---
Author Organization [employer] Address [address] [facility] 7t [place] [address] Care Team Providers Care Pega Developer Name Role Phone Evy Christopher Primary Care Provider Romeo Echavarria RN Unavailable [phone] Romeo Echavarria RN Unavailable [phone] Scar Pimentel RN Unavailable [phone] Tawny Frias Unavailable Reason for Visit * Reason Comments Med Refill Encounter Details Date Type Department Care Team (Late st Contact Info) Description 10/26/2024 Refill [facility] MEDICINE 230 [place], [place] [phone] Evy Christopher ANP 230 [place], [place] [phone] Social History Tobacco Use Types Packs/Day Years [...] Description 10/02/2025 11:45 AM EST Office Visit [facility] MEDICINE [address] [place] [address] Clarence Anderson MD [address] [place] [address] 10/16/2025 9:00 AM EST Office Visit [facility] MEDICINE [address] [place] [address] Evy Christopher ANP [address] [place] [address] documented as of this encounter Visit Diagnoses Not on filedocumented in this encounter Additional Health Concerns Assessment Noted Time PHQ-9 Depression Total Score: 2 05/23/20 24 9:49 AM EDT documented as of this encounter Care Teams Pega Developer Relationship Specialty Start Date End Date Evy Christopher ANP [address] [place] [address] PCP - General Family Medicine 06/20/21 Romeo Echavarria, RN [address] [place] [address] Continuous Mining Machine Lode MinerSteward/Stewardess Economy Class 12/25/24 05/07/25 Romeo Echavarria, SUKHWINDER [address] [place] [address] Registered Nurse Family Medicine 04/28/25 04/28/25 Scar Pimentel, SUKHWINDER [address] [place] [address] Registered Nurse Family Medicine 07/13/25 Tawny Frias 07/13/25 documented as of this encounter
--- OUTSIDE RECORDS SUMMARY | 2025-09-16 18:44 | XMS_ITS | Clinical Summary ---
Author Organization [employer] Address [address] [facility] [place] [address] Care Team Providers Care Talent Acquisition Partner Name Role Phone Trevor Medina JORGE A Primary Care Provider [phone] Scar Pimentle RN Unavailable [phone] Tawny Frias Unavailable Allergies Active Allergy Reactions Criticality Noted Date Comments Gramineae Pollens 05/09/2024 Other Reaction(s): Unknown Medications * This document contains information received from the source organization and may not represent a complete record from that organization. Blood Glucose Monitoring Suppl (FreeStyle Lite) w/Device kit 022 Active loratadine (Claritin) 10 MG tablet Take 1 tablet (10 mg) by mouth if needed each day for allergies. 90 tablet 023 Active EPINEPHrine (Epipen) 0.3 MG/0.3ML injection syringe Inject 0.3 mL (0.3 mg) as directed 1 (one) time if needed for anaphylaxis for up to 2 doses. Inject into upper leg. Call 911 after use. 2 each 024 Active FreeStyle lancetsIndication s:Prediabetes 1 each by Other route if needed each day (blood sugar). 100 each 2 025 Active fluticasone (Flonase) 50 MCG/ACT nasal sprayIndications: Nasal congestion 1-2 sprays per nostril as needed up to BID. Shake gently. Before first use, prime pump. After use, clean tip and replace cap. 48 g 025 Active tiZANidine (Zanaflex) 2 MG tablet Take 2 tablets (4 mg) by mouth every 8 (eight) hours if needed for muscle spasms for up to 10 days. 40 tablet Active FLUoxetine (PROzac) 40 MG capsuleIndication s:SHANNA (generalized anxiety disorder) Take 1 capsule (40 mg) by mouth Once per day. 90 capsule 1 Active acetaminophen (Tylenol Extra Strength) 500 MG tablet Take 1-2 tabs as needed up to TID for pain, no more than 6 tabs per day 120 tablet Active omega-3 acid ethyl esters (Lovaza) 1 g capsule Take 1 capsule by mouth 2 times daily. Active pantoprazole (ProtoNix) 40 MG EC tablet Take 1 tablet by mouth 2 times daily. Active famotidine (Pepcid) 40 MG tablet Take 1 tablet (40 mg) by mouth at bedtime. 90 tablet 1 Active ondansetron (Zofran) 4 MG tablet 1-2 tab po TID prn nasuea/vomiting 30 tablet 1 Active ibuprofen 400 MG tabletIndications :Pain of both breasts Take 1 tablet (400 mg) by mouth every 6 (six) hours if needed for moderate pain or fever for up to 30 doses. 30 tablet Active albuterol (2.5 MG/3ML) 0.083% nebulizer solutionIndicatio ns:Moderate persistent asthma with exacerbation Take 3 mL by nebulization every 8 (eight) hours if needed for wheezing or shortness of breath. 75 mL 3 Active albuterol 108 (90 Base) MCG/ACT inhalerIndication s:Moderate persistent asthma with exacerbation Inhale 2 puffs every 4 (four) hours if needed for wheezing. 18 g 3 025 Active Alcohol Swabs (B-D SINGLE USE SWABS REGULAR) padsIndications:P rediabetes USE TO CHECK BLOOD SUGAR EVERY MORNING DIRECTED. 100 each 11 Active FREESTYLE LITE test stripIndications: Prediabetes USE TO CHECK FASTING SUGAR IN THE MORNING OR NEEDED FOR SYMPTOMS 100 strip 11 Active Zepbound 10 MG/0.5ML solution auto-injector Inject 10 mg under the skin every 7 (seven) days. 10/03/2 025 Active sucralfate (Carafate) 1 GM/10ML suspension Shake liquid and take 10 ml three times a day before meals and at bedtime Active rosuvastatin (Crestor) 40 MG tabletIndications :Mixed hyperlipidemia Take 1 tablet (40 mg) by mouth Once per day. 90 tablet 3 025 2025 Active polyethylene glycol, PEG, 3350 (Glycolax) 17 GM/SCOOP powderIndications :Constipation, unspecified constipation type 1 scoop (17g) as needed 1-2 times daily for constipation. Mix with 8oz water, juice, soda, coffee, or tea 510 g 1 023 2024 Discontinued(M ed list cleanup (will not trigger notification to Pharmacy)) Zepbound 7.5 MG/0.5ML solution auto-injector Inject 7.5 mg under the skin 1 (one) time per week. 025 2024 Discontinued(M ed list cleanup (will not trigger notification to Pharmacy)) Active Problems Problem Noted Date Diagnosed Date Chronic pancreatitis (CMS/HCC) 05/06/2025 Assessment & Plan (05/06/2025 12:04 AM [...] to stop med -I called today her [facility] GI office and discussed about chronic [...] with PCP Cyclobenzaprine 5mg Q 8hrs (I international student counselor about side effect somnolence, she can [...] AM EST): Pt is in care with 3rd pressman, utd on mammogram, pap completed 09/20, GI [...] s/p back injections f w ortho at [facility] Here w 1 week of pain reports only in buttock area , per pt in hip but no pain in lateral aspect concerning x trochanteric bursitis Pain radiates to back of buttock so appears sciatica vs piriformis syndrome -right hip XR today at [facility] is reported as normal -warm compresses -tylenol [...] pt report UTD on pap, managed by 3rd pressman Right ovarian cyst 04/17/2021 Overview (06/23/2024): 06/2023 measuring 3.0 x 2.9 x 2.8 cm Prediabetes 01/22/2019 Overview (09/09/2024): Lab Results Component Value Date HGBA1C 5.7 09/11/2023 HGBA1C 5.2 07/07/2022 HGBA1C 5.2 02/23/2021 Mild persistent asthma without complication 11/29 Hyperlipidemia 12/03/2015 Overview (09/11/2023): Cont rosuvastatin 40mg Assessment & Plan (12/31/2023 10:17 AM EST): Continue rosuvastatin 40 mg, labs completed at [facility] Chronic abdominal pain 12/03/2015 Assessment & [...] Date Type Department Care Team Description 09/15/2025 Orders Only [address] [address] Trevor Medina ANP 09/11/[address] [address] Trevor Medina ANP No Show 09/11/2025 Patient Outreach [address] [address] Trevor Medina ANP Care Management (C3CM- f/u call lvm) 09/10/[address] [address] Trevor Medina ANP chart prep 09/02/2025 Results Follow-Up [address] [address] Trevor Medina ANP Lipid Panel, Standard, Comprehensive Metabolic Panel, Lipase 08/28/2025 Patient Outreach [address] [address] Trevor Medina ANP Care Management (C3CM- f/u call) 08/27/[address] [address] Trevor Medina ANP chart prep 08/25/2025 Patient Outreach [address] [address] Trevor Medina ANP 08/21/2025 Patient Outreach [address] [address] Trevor Medina ANP 08/20/2025 Patient Outreach [facility] [address] [place] [address] Trevor Medina ANP Chest Pain 08/18/[address] [address] Trevor Medina ANP Transition Of Care (Tcm) 08/17/[address] [address] Trevor Medina ANP nurse rosmery 08/14/2025 Patient Outreach [address] [address] Trevor Medina ANP Care Management (C3CM- f/u call) 08/11/[address] [address] Trevor Medina ANP Transition Of Care (Tcm) 08/05/2025 Plan of Care Documentation [address] [address] 08/04/[address] [address] Trevor Medina ANP Prediabetes 08/04/2025 Patient Outreach [address] [address] Trevor Medina ANP Care Management (C3- initial assessment/ enrollment) 08/03/[address] [address] Trevor Medina ANP Moderate persistent asthma with exacerbation 08/03/2025 Patient Outreach [address] [address] Trevor Medina ANP Care Coordination (CM/CHW appointment reminder) 07/30/[address] [address] Trevor Medina ANP raghav 07/27/2025 1:45 PM EDT Office Visit [address] [address] Chantelle Mitchell FNP Encounter for adult wellness visit (Primary Dx); Prediabetes; Encounter for immunization; Excess skin of thigh; Excess skin of arm 07/27/2025 Travel 07/27/2025 Patient Outreach [address] [address] Trevor Medina ANP 07/24/[address] [address] Nicky Rodriguez [place] CHART PREP 07/24/2025 Orders Only GENERIC EXTERNAL DATA DEPARTMENT Provider, Generic External Data 07/20/2025 Patient Outreach [address] [address] Trevor Medina ANP Care Coordination (CM/CHW outreach) 07/20/[address] [address] Trevor Medina ANP Referral 07/17/2025 9:15 AM EDT Office Visit [address] [address] Trevor Medina ANP Hyperlipidemia, unspecified hyperlipidemia type (Primary Dx); Chronic pancreatitis, unspecified pancreatitis type (CMS/HCC) 07/17/2025 Patient Outreach [facility] [address] [place] [address] Trevor Medina ANP Pre-visit Planning (SDOH was already complete ) 07/17/2025 Travel 07/16/[address] [address] Trevor Medina ANP chart prep 07/14/[address] [address] Estelle Flynn, CONCRETE ENGINEERING TECHNICIAN Follow-up 07/14/2025 Patient Outreach [address] [address] Trevor Medina ANP 07/13/2025 Orders Only [facility] [address] [place] [phone] Provider, MD Pearl 07/13/2025 Patient Outreach [address] [address] Trevor Medina ANP Care Coordination (CHW chart review) 07/13/2025 Patient Outreach [address] [address] Trevor Medina ANP Care Management ([facility]- chart review) 07/13/2025 Patient Outreach [address] [address] Trevor Medina ANP 07/06/[address] [address] Trevor Medina ANP SHANNA (generalized anxiety disorder) 07/03/2025 Patient Outreach [facility] [address] [place] [address] Trevor Medina ANP Transition Of Care (Tcm) (HDF- unscheduled LVM) 07/01/2025 Telephone [facility] [address] [place] [address] Trevor Medina ANP Durable Medical Equipment from Last 3 Months Immunizations Immunization Administration Dates Next Due Hep A / Hep B 04/19/2016,02/18/2014,01/15/2014 Hep B, Adolescent or Pediatric 06/28/1999,1998,12/03/1998 Hep B, adult 09/27/2021 Influenza injectable quadriv alent IIV4 with preservative 08/03/2016 Influenza injectable quadriv alent preservative free 07/06/2022,08/19/2021,08/09/2020,07/16,07/29/2018,07/29/2015 Influenza, IIV3, injectable 06/26/2017,1 ,07/07/2011,09/29 Influenza, Split (incl. shamika fied surface antigen) 08/08/2013,10/01/2012 Influenza, seasonal, injecta ble, preservative free 07/27/2025,07/18/2024,07/13/2015 MMR 02/15/1999,12/03/1998 Pfizer Covid-19 Vaccine 12+ 03/23/2021, [...] Sign Reading Time Taken Comments Blood Pressure 108/76 07/27/2025 1:37 PM EDT Pulse 86 07/27/2025 1:37 PM EDT Temperature 36.9 C (98.4 F) 07/27/2025 1:37 PM EDT Respiratory Rate 18 07/27/2025 1:37 PM EDT Oxygen Saturation 98% 07/27/2025 1:37 PM EDT Inhaled Oxygen Concentration - - Weight 70.1 kg (154 lb 8 oz) 07/27/2025 1:37 PM EDT Height 158.9 cm (5' 2.55 ) 07/27/2025 1:37 PM ED T Body Mass Index 27.76 07/27/2025 1:37 PM EDT Plan of Treatment Upcoming Encounters Date Type Department Care Team (Late st Contact Info) Description 10/02/2025 11:45 AM EST Office Visit [facility] [address] [place] [phone] Clarence Anderson MD [address] [place] [address] 10/16/2025 9:00 AM EST Office Visit [facility] [address] [place] [address] Trevor Medina ANP [address] [place] [address] Health Maintenance Due Date Last Done Comments CT Colonography 1978 Dental Oral Exam 1978 Dental Prophylaxis 1978 FIT DNA/Cologuard 1978 FIT 1978 FOBT 1978 Sigmoidoscopy 1980 Disability Screening 1978 Dental X-Ray: Bitewings 09/27/2024 09/26/2023 COVID-19 Vaccine ( season) 2025 11/03/2022, 11/27/2021, 11/27/2021, Additional history exists Diagnostic Breast Imaging 10/16/20252024, 12/24/2023, 10/17/2017 SDOH Screening 12/08/2025 12/08/2024 Alcohol/Substance Use Screening 04/02/2026 04/02/2025 Diabetes: Hemoglobin A1C 07/27/2026 025, 11/12/2024, 09/19/2024, Additional history exists Family Planning (PISQ) 07/29/2026 Postp oned from 1993 (Other Medical Reasons) Depression Screening 08/04/2026 08/04/2025, 08/04/20 25 Tobacco Screening 08/06/2026 08/06/2025 Dental X-Ray: Full Mouth 09/08/2026 09/07/2023 Zoster Vaccines (1 of 2) 2028 Lipid Panel 08/31/2030 08/31/2025, 12/2024, 11/12/2024, Additional history exists Colonoscopy 09/01/2031 09/01/2024, 01/2024, 12/17/2014 Colorectal Cancer Screening 09/01/2031 DTaP/Tdap/Td Vaccines [...] BI MAMMOGRAM DIAG W LUKAS W IMPLANTS HARJEET Routine 09/15/2025 1:22 PM EST LIPASE Routine 08/31/2025 8:16 AM EST Chronic pancreatitis, unspecified pancreatitis type (CMS/HCC) (HCC) COMPREHENSIVE METABOLIC PANEL Routine 08/31/2025 8:16 AM EST Hyperlipidemia, unspecified hyperlipidemia type LIPID PANEL, STANDARD Routine 08/31/2025 8:16 AM EST Hyperlipidemia, unspecified hyperlipidemia type POCT GLYCATED HEMOGLOBIN, TOTAL Routine 07/27/2025 1:44 PM EDT Prediabetes US RENAL RT Routine 07/24/2025 2:15 PM EDT HCG, TOTAL, QN Routine 07/24/2025 11:09 AM EDT LIPASE Routine 07/24/2025 11:09 AM EDT BASIC METABOLIC PANEL Routine 07/24/2025 11:09 AM EDT HEPATIC FUNCTION PANEL Routine 07/24/2025 11:09 AM EDT URINALYSIS, COMPLETE, WITH REFLEX TO CULTURE Routine 07/24/2025 11:09 AM EDT CBC WITH AUTO DIFFERENTIAL Routine 07/24/2025 11:[address] ABDOMEN PELVIS W CONTRAST Routine 07/10/2025 1:55 PM EDT HM COLONOSCOPY Routine 09/01/2024 HEPATITIS C AB W/REFL TO HCV RNA, QN, PCR Routine 11/16/2023 9:23 AM EST Elevated ferritin level BITEWING - SINGLE RADIOGRAPHIC IMAGE Routine 09/26/2023 11:30 AM EST Failing root canal HIV ANTIBODY/ANTIGEN ([place] DPH) Routine 07/12/2023 9:10 AM EDT PAP/HPV Routine 12/31/2013 from Last 3 Months or Most Recently Relevant to Health Maintenance Results * BI US Breast Limited Bilateral (09/16/2025 10:11 AM EST) Anatomical Region Laterality Modality Breast Bilateral Ultrasound 09/16/2025 10:1 1 AM EST Narrative 09/16/2025 11:24 AM EST [facility] [address] [place] [address] Ultrasound Report Signed Patient: Afua Hector MR#: [id number] : 1980 Acct:[id number] Age/Sex: 45 / F ADM Date: 09/16/25 Loc: HO.MAMMO Attending Dr: Trevor Medina NP Ordering Physician: TREVOR MEDINA NP Date of Service: 09/16/25 Procedure(s): US Breast BI Limited Mamm Only Accession Number(s): [id number] cc: TREVOR MEDINA NP Reason for Exam: BILATERAL BREAST PAIN EXAMINATION: US DIAGNOSTIC ULTRASOUND BREAST, BILATERAL CLINICAL INFORMATION: Bilateral lower outer quadrant pain for one month. Patient came in for diagnostic mammography yesterday with benign findings.. COMPARISON: Comparison is made with relevant prior imaging. TECHNIQUE: Ultrasound of the breast is performed with real-time jett scale imaging and color Doppler. FINDINGS: Targeted [...] by: Milla Craig DO 09/16/2025 11:21 AM [facility] Dictated By: Milla Craig DO Signed By: <Electronically signed by Milla Craig DO in OV> 09/16/25 1121 DD/ 1011 TD/TT: 09/16/25 1032 Aligner Barrel And Receiver: Procedure Note Donotuseinterpreter, Image - 09/16/2025 [facility] [address] [place] [address] Ultrasound Report Signed Patient: Afua Hector LMR#: [id number] : 1980Acct:[id number] Age/Sex: 45 / FADM Date: 09/16/25 Loc: HO.MAMMO Attending Dr: Trevor Medina NP Ordering Physician: TREVOR MEDINA NP Date of Service: 09/16/25 Procedure(s): US Breast BI Limited Mamm Only Accession Number(s): [id number] cc: TREVOR MEDINA NP Reason for Exam: BILATERAL BREAST PAIN EXAMINATION: US DIAGNOSTIC ULTRASOUND BREAST, BILATERAL CLINICAL INFORMATION: Bilateral lower outer quadrant pain for one month. Patient came in for diagnostic mammography yesterday with benign findings.. COMPARISON: Comparison is made with relevant prior imaging. TECHNIQUE: Ultrasound of the breast is performed with real-time jett scale imaging and color Doppler. FINDINGS: Targeted [...] 09/16/25 1121 DD/ 1011 TD/TT: 09/16/25 1032 Aligner Barrel And Receiver: us Trevor Medina ANP IMG US PROCEDURES Final Result * BI Mammogram Diag w/ Lukas w/ Implants Harjeet (09/15/2025 1:22 PM EST) Anatomical Region Laterality Modality Mammography 09/15/2025 1:22 PM EST Narrative 09/15/2025 4:00 PM EST [facility] [address] [place] [address] Mammography Report Signed Patient: Afua Hector MR#: [id number] : 1980 Acct:[id number] Age/Sex: 45 / F ADM Date: 09/15/25 Loc: HO.MAMMO Attending Dr: Trevor Medina NP Ordering Physician: TREVOR MEDINA NP Results: 0Incomplete - Need Additional Imaging Evaluation Date of Service: 09/15/25 Follow Up: Additional Imagi ng Procedure(s): MM tomosynthesis diag imp BI Accession Number(s): [id number] cc: TREVOR MEDINA NP Reason For Exam: [...] by: Hua Collins MD 09/15/2025 03:57 PM [facility] Workstation: [id number] Dictated By: Hua Collins MD Signed By: <Electronically signed by Hua Collins MD in OV> 09/15/25 1557 DD/ 1322 TD/TT: 09/15/25 1335 Aligner Barrel And Receiver: Procedure Note Donotuseinterpreter, Image - 09/15/2025 [facility] [address] [place] [address] Mammography Report Signed Patient: Afua Hector LMR#: [id number] : 1980Acct:[id number] Age/Sex: 45 / FADM Date: 09/15/25 Loc: HO.MAMMO Attending Dr: Trevor Medina SAFETY PIN ASSEMBLING MACHINE OPERATOR Ordering Physician: TREVOR MEDINA NPResults: 0Incomplete - Need Additional Imaging Evaluation Date of Service: 09/15/25Follow Up: Additional Imagi ng Procedure(s): MM tomosynthesis diag imp BI Accession Number(s): [id number] cc: TREVOR MEDINA NP Reason For Exam: [...] or other abnormalities are seen. MM/MM [facility] IMPRESSION: BILATERAL BREASTS: Benign, no mammographic [...] by: Hua Collins MD 09/15/2025 03:57 PM EST Dictated By: Hua Collins MD Signed By: <Electronically signed by Hua Collins MD in OV> 09/15/25 1557 DD/ 1322 TD/TT: 09/15/25 1335 Aligner Barrel And Receiver: Trevor Medina ANP IMG BI PROCEDURES Final Result * Lipase (08/31/2025 8:16 AM EST) Only the most recent of2 resultswithin the time period is included. Lipase 29 8 - 78 U/L [facility] Blood Venous blood specimen / Unknown 08/31/2025 8:16 AM EST 08/31/2025 11:27 AM EST Trevor Medina [facility] BLOOD ORDERABLES Final Resul t Performing Organization Address [facility] de Phone Number [facility] [address] [place] [phone] * (ABNORMAL) Lipid Panel, Standard (08/31/2025 8:16 AM EST) Triglycerides 199(H) <150 mg/dL [facility] Comment:Desirable Triglyceri de: less than 150 mg/dLBorderline High Triglyceride 150-199 mg/dLHigh Triglyceride: 200-499 mg/dLVery High Triglyceride: greater than or equal to 5OO mg/dL Cholesterol 274(H) <200 mg/dL [facility] Comment:Desirable Cholestero l: less than 200 mg/dLBorderline High Cholesterol: 200-239 mg/dLHigh Cholesterol: greater than 239 mg/dL LDL Cholesterol Calculated 190(H) <100 mg/dL [facility] Comment:Desirable LDL: less than 100 mg/dLNear Optimal/Above Optimal LDL: 110- 129 mg/dLBorderline High LDL: 130-159 mg/dLHigh LDL: 160-189 mg/dLVery High LDL: greater than or equal to 190 mg/dL HDL Cholesterol 45 >40 mg/dL [facility] Comment:Desirable HDL: great er than 40 mg/dL Note: This HDL assay may give artificially low results in patients with liver disease. Blood Venous blood specimen / Unknown 08/31/2025 8:16 AM EST 08/31/2025 11:27 AM EST Trevor Medina ANP LAB BLOOD ORDERABLES Final Resul t Performing Organization Address [facility] Co de Phone Number [facility] [address] [place] [phone] * (ABNORMAL) Comprehensive Metabolic Panel (08/31/2025 8:16 AM EST) Sodium 138 135 - 145 mmol/L [facility] Potassium 4.2 3.3 - 5.1 mmol/L [facility] Chloride 106 96 - 108 mmol/L [facility] Carbon Dioxide 28 22 - 29 mmol/L [facility] Anion Gap 8(L) 12 - 20 [facility] Urea Nitrogen (BUN) 8(L) 9 - 16 mg/dL [facility] Creatinine, Serum 0.53 0.5 - 1.4 mg/dL [facility] Estimated Glomerular Filt Rate >60 [facility] Comment:Chronic Kidney Disea se: Estimated GFR < 60 mL/min/1.32x4Uoxxay Kidney Disease: Estimated GFR < 15 mL/min/1.73m2 Glucose 84 60 - 115 mg/dL [facility] Calcium 8.9 8.4 - 10.2 mg/dL [facility] Bilirubin, Total 0.8 0.0 - 1.0 mg/dL [facility] Aspartate Amino Transferase 39(H) 5 - 31 U/L [facility] Alanine Aminotransferase 24 0 - 31 U/L [facility] Total Protein 6.9 6.5 - 8.0 g/dL [facility] Albumin Level 4.0 3.5 - 5.0 g/dL [facility] Alkaline Phosphatase 72 39 - 117 U/L [facility] Blood Venous blood specimen / Unknown 08/31/2025 8:16 AM EST 08/31/2025 11:27 AM EST [facility] LAB BLOOD ORDERABLES Final Resul t [facility] [address] [place] [phone] * POCT Hgb A1c (07/27/2025 1:44 PM EDT) Hemoglobin A1C 5.4 4.0 - 5.7 % QC Media Lot # [id number] Lot# Expiration Date [id number] Blood 07/27/2025 1:44 PM EDT us Chantelle Mitchell [employer] POINT OF CARE TEST ENTER/EDIT ORDERABLES Final Result * US RENAL RT (07/24/2025 2:15 PM EDT) Anatomical Region Laterality Modality Abdomen Ultrasound 07/24/2025 2:15 PM EDT Narrative 07/24/2025 2:36 PM EDT [place] [address] Ultrasound Report Signed Patient: Afua Hector MR#: [id number] : 1980 Acct:[id number] Age/Sex: 45 / F ADM Date: 07/24/25 Loc: .ED Attending Dr: Ordering Physician: Kobi Gaona MD Date of Service: 07/24/25 Procedure(s): US renal RT Accession Number(s): [id number] cc: TREVOR MEDINA SAFETY PIN ASSEMBLING MACHINE OPERATOR; Kobi Gaona MD Reason for Exam: Right flank pain rule out hydronephrosis, EXAMINATION: US KIDNEY RIGHT HISTORY: Right flank pain rule out hydronephrosis, TECHNIQUE: Real-time grayscale ultrasound imaging of the right kidney was performed and images were reviewed. COMPARISON: Comparison is made with the prior examination dated 04/27/2025. FINDINGS: The right kidney measures 10.7 x 5.8 x 6.2 cm. Renal parenchymal echotexture and thickness are normal. There are no masses. There is a 3 mm nonobstructing calculus in the interpolar region. There is an extrarenal pelvis. No hydronephrosis. US/US renal RT IMPRESSION: 3 mm nonobstructing right renal calculus. No hydronephrosis. Electronically signed by: Dev Valle MD 07/24/2025 02:33 PM EDT Dictated By: Dev Valle MD Signed By: <Electronically signed by Dev Valle MD in OV> 09/26/25 1433 DD/ 14 TD/TT: 07/24/25 142 Aligner Barrel And Receiver: Procedure Note Donotuseinterpreter, Image - 07/24/[address] [address] Ultrasound Report Signed Patient: Afua Hector LMR#: [id number] : 1980Acct:[id number] Age/Sex: 45 / FADM Date: 07/24/25 Loc: HO.ED Attending Dr: Ordering Physician: Kobi Gaona MD Date of Service: 07/24/25 Procedure(s): US renal RT Accession Number(s): [id number] cc: TREVOR MEDINA NP; Kobi Gaona MD Reason for Exam: Right flank pain rule out hydronephrosis, EXAMINATION: US KIDNEY RIGHT HISTORY: Right flank pain rule out hydronephrosis, TECHNIQUE: Real-time grayscale ultrasound imaging of the right kidney was performed and images were reviewed. COMPARISON: Comparison is made with the prior examination dated 04/27/2025. FINDINGS: The right kidney measures 10.7 x 5.8 x 6.2 cm. Renal parenchymal echotexture and thickness are normal. There are no masses. There is a 3 mm nonobstructing calculus in the interpolar region. There is an extrarenal pelvis. No hydronephrosis. US/US renal RT IMPRESSION: 3 mm nonobstructing right renal calculus. No hydronephrosis. Electronically signed by: Dev Valle MD 07/24/2025 02:33 PM EDT Dictated By: Dev Valle MD Signed By: <Electronically signed by Dev Valle MD in OV> 07/24/251432 DD/ 14 TD/TT: 07/24/25 142 Aligner Barrel And Receiver: us [facility] External Provider IMG US PROCEDURES Final Result * Urinalysis, Complete, with Reflex to Culture (07/24/2025 11:09 AM EDT) Color Urine Yellow [facility] Appearance Urine Clear [facility] PH 6.0 5.0 - 9.0 [facility] Glucose Urine UA Negative Negative mg/dL [facility] Urine Blood Negative Negative [facility] Specific [place] - Urine 1.020 1.005 - 1.025 [facility] Urine Protein Negative Neg-Trace mg/dL [facility] Urine Ketones Negative Negative mg/dL [facility] Nitrite Urine Negative Negative [facility] Leukocyte Esterase Urine Negative Negative [facility] RBC Urine 0-2 0 - 2 /HPF [facility] Urine WBC 0-5 0 - 5 /HPF [facility] Urine Squamous Epithelial Cell 0-2 0 - 2 /HPF [facility] Urine Bacteria None Seen None Seen [facility] Hyaline Casts, Urine 0-2 0 - 2 /LPF [facility] 07/24/2025 11:0 9 AM EDT 07/24/2025 11:19 AM EDT Narrative [facility] - 07/24/2025 11:26 AM EDT Urine, Clean Catch us Generic External Data Provider LAB URINE ORDERAB LES Final Result [facility] [address] [place] [phone] * CBC auto differential (07/24/2025 11:09 AM EDT) White Blood Count 7.2 4.8 - 10.8 X10*3/uL [facility] Red Blood Count 4.23 4.20 - 5.50 X10*6/uL [facility] Hemoglobin 12.0 12.0 - 16.0 g/dl [facility] Hematocrit 37.3 37.0 - 47.0 % [facility] Mean Corpuscular Volume 88.2 80.0 - 98.0 fL [facility] Mean Corpuscular Hemoglobin 28.4 27.0 - 33.0 pg [facility] Mean Corpuscular HGB Conc 32.2 31.0 - 35.0 g/dl [facility] Red Cell Distribution Width 12.4 11.0 - 16.0 % [facility] Platelet Count 292 160 - 400 X10*3/uL [facility] Mean Platelet Volume 10.7 9.4 - 12.3 fL [facility] Neutrophils Percent Auto 57.4 45 - 73 % [facility] Imm Gran Pct Auto 0.1 0.0 - 0.4 % [facility] Lymphocytes Percent Auto 30.3 20 - 40 % [facility] Monocytes Percent Auto 9.1 2 - 11 % [facility] Eosinophils Percent Auto 2.0 0 - 4 % [facility] Basophils Percent Auto 1.1 0 - 2 % [facility] NRBC Pct Auto 0.0 0.0 - 0.2 /100WBC [facility] Neutrophils Absolute Auto 4.1 2.0 - 8.3 x10*3/uL [facility] Imm Gran Abs Auto 0.01 0.00 - 0.03 X10*3/uL [facility] Lymphocytes Absolute Auto 2.2 1.2 - 4.9 X10*3/uL [facility] Monocytes Absolute Auto 0.7 0.1 - 1.2 X10*3/uL [facility] Eosinophils Absolute Auto 0.1 0.0 - 0.4 X10*3/uL [facility] Basophils Absolute Auto 0.1 0.0 - 0.2 X10*3/uL [facility] NRBC Abs Auto 0.000 0.0 - 0.012 X10*3/uL [facility] 07/24/2025 11:0 9 AM EDT 07/24/2025 11:19 AM EDT us Generic External Data Provider LAB BLOOD ORDERAB LES Final Result [facility] [address] [place] [phone] * hCG, Total, Quantitative (07/24/2025 11:09 AM EDT) HCG Quantitative <2 mIU/mL [facility] Comment:Weeks post LMP Appro ximate hCG(Last Menstrual Period) Range (mIU/ml)3 - 4 weeks 9 - 1304 - 5 weeks 75 - 2,6005 - 6 weeks 850 - 20,8006 - 7 weeks 4000 - 100,2007 - 12 weeks 11,500 - 289,01110 - 16 weeks 18,300 - 137,80054 - 29 weeks (2nd trimester) 1,400 - 53,68336 - 41 weeks (3rd trimester) 940 - [...] Provider LAB BLOOD ORDERAB LES Final Result [facility] [address] [place] [phone] * Hepatic Function Panel (07/24/2025 11:09 AM EDT) Bilirubin, Total 0.8 0.0 - 1.0 mg/dL [facility] Bilirubin, Direct 0.2 0.0 - 0.5 mg/dL [facility] Aspartate Amino Transferase 19 5 - 31 U/L [facility] Alanine Aminotransferase 7 0 - 31 U/L [facility] Total Protein 7.4 6.5 - 8.0 g/dL [facility] Albumin Level 4.3 3.5 - 5.0 g/dL [facility] Alkaline Phosphatase 64 39 - 117 U/L [facility] 07/24/2025 11:0 9 AM EDT 07/24/2025 11:19 AM EDT us Generic External Data Provider LAB BLOOD ORDERAB LES Final Result Performing Organization Address City/[facility]/ZIP Co de Phone Number [facility] [address] [place] [address] [phone] * (ABNORMAL) Basic Metabolic Panel (07/24/2025 11:09 AM EDT) Sodium 142 135 - 145 mmol/L [facility] Potassium 4.5 3.3 - 5.1 mmol/L [facility] Chloride 110(H) 96 - 108 mmol/L [facility] Carbon Dioxide 28 22 - 29 mmol/L [facility] Anion Gap 9(L) 12 - 20 [facility] Urea Nitrogen (BUN) 9 9 - 16 mg/dL [facility] Creatinine, Serum 0.62 0.5 - 1.4 mg/dL [facility] Creatinine Clr Calc Pharmacy 108.4 [facility] Comment:Provided height and weight: 160.02 cm,74.48 kg.eGFR (calculated from the MDRD study equation) and eCrCl(calculated from the Cockcroft-Gault equation) are based ondifferent parameters and may not yield comparable results.If eCrCl result is absurd, please check patient'sheight/weight. Estimated Glomerular Filt Rate >60 [facility] Comment:Chronic Kidney Disea se: Estimated GFR < 60 mL/min/[id number] Kidney Disease: Estimated GFR < 15 mL/min/1.73m2 Glucose 80 60 - 115 mg/dL [facility] Calcium 9.5 8.4 - 10.2 mg/dL [facility] 07/24/2025 11:0 9 AM EDT 07/24/2025 11:19 AM EDT us Generic External Data Provider LAB BLOOD ORDERAB LES Final Result Performing Organization Address [facility]/ZIP Co de Phone Number [facility] [address] [place] [address] [phone] * CT Abdomen Pelvis w/ Contrast (07/10/2025 1:55 PM EDT) Anatomical Region Laterality Modality Body, Pelvis, Abdomen Computed T omography Historical Provider IMG CT PROCEDURES Final R esult * Hm Colonoscopy (09/01/2024) Colonoscopy Normal Normal Narrative Rena Alejandra - 09/01/2024 Colonoscopy order added . Colonoscopy performed on 09/01/2024 per office note repeat in 7 years Historical Provider HEALTH MAINTENANCE Final Result * Hepatitis C Antibody with Reflex to HCV, RNA, Quantitative, Real-Time PCR (11/16/2023 9:23 AM EST) Hepatitis C Antibody Nonreactive Nonreactive [facility] Comment:Antibodies to HCV no t detected; does not exclude early acuteHCV infection. Blood Venous blood specimen / Unknown 11/16/2023 9:23 AM EST 11/16/2023 11:17 AM EST [facility] LAB BLOOD ORDERABLES Final Resul t [facility] [address] [place] [phone] * HIV Ab/Ag ([facility]) (07/12/2023 9:10 AM EDT) HIV AB/AG Nonreactive Nonreactive [facility] Comment:HIV-1 p24 Ag and/or HIV-1/HIV-2 Ab not detected.A test result that is nonreactive does not exclude thepossibility of exposure to or infection with HIV-1 and/orHIV-2. Nonreactive results in this assay for individualswith prior exposure to HIV-1 and/or HIV-2 may be due toantigen and antibody levels that are below the limit ofdetection of this assay.The [employer] HIV Ag/Ab Combo assay result andsupplemental assay results should be interpreted inconjunction with the patient's clinical presentation,history and other laboratory results. If the results areinconsistent with clinical evidence, additional testing issuggested to confirm the result. 07/12/2023 9:10 AM EDT 07/12/2023 11:28 AM EDT Trevor JULES LAB BLOOD ORDERABLES Final Resul t [facility] [address] [place] [phone] * Pap Smear (12/31/2013) Pap Negative for intraephithelial lesion or malignancy Negative for intraephithelial lesion or malignancy, Other HPV Undetected Undetected, Indeterminate, Quantitative, Not Detected Historical Provider HEALTH MAINTENANCE Final Result from Last 3 Months or Most Recently Relevant to Health Maintenance [place] [address] [place] [address] C3 [facility] MEDICAID STAND ADULT Care Teams Talent Acquisition Partner Relationship Specialty Start Date End Date Trevor Medina ANP [address] [place] [id number] PCP - General Family Medicine 06/20/21 Scar Pimentel, SUKHWINDER [address] [place] [phone] Registered Nurse Family Medicine 07/13/25 Tawny Frias 07/13/25
--- OUTSIDE RECORDS SUMMARY | 2025-09-16 18:44 | XMS_ITS | Encounter Summary ---
Author Organization [employer] Address [address] [facility] [address] [place] [address] Care Team Providers Care Product Safety Head Name Role Phone Christopher Evy JULES Primary Care Provider [phone] Scar Pimentel RN Unavailable [phone] Tawny Frias Unavailable Encounter Details Date Type Department Care Team (Late st Contact Info) Description 07/13/2025 Orders Only [facility] [address] [place] [address] ProviderPearl MD Social History Tobacco Use Types [...] Description 10/02/2025 11:45 AM EST Office Visit [facility] [address] [place] [phone] Clarence Anderson MD [address] [place] [phone] 10/16/2025 9:00 AM EST Office Visit [facility] [address] [place] [phone] Evy Christopher ANP [address] [place] [phone] documented as of this encounter Procedures Procedure [...] documented as of this encounter Care Teams Product Safety Head Relationship Specialty Start Date End Date Evy Christopher ANP [address] [place] [address] PCP - General Family Medicine 06/20/21 Scar Pimentel RN [address] [place] [phone] Registered Nurse Family Medicine 07/13/25 Tawny Frias 07/13/25 documented as of this encounter
== END 2025-09-16 09:59 | disposition home or self-care (01) ==
LOC: HO.MAMMO 09:58
PROVIDERS: Visit Provider Nurse Practitioner Primary Care
DX: N64.4 Mastodynia (principal)
CPT/HCPCS: 76642

== ENCOUNTER → 2025-09-16 10:30 | Outpatient (BNV) | payer MEDICAID, SELFPAY | PROVIDERS: Visit Provider Internal Medicine | DX: N64.4 Mastodynia (principal) | CPT/HCPCS: 76642 ==

== ENCOUNTER 2025-10-07 10:46 | Outpatient (AMB) | payer MEDICAID, SELFPAY ==
--- NOTE | 2025-10-07 10:47 | MHC.OFFVIS ---
Vital Signs 10/07/25 10:48 Height 5 ft 3 in Weight 162 lb BMI 28.7 BP 125/78 Blood Pressure Location Rt brachial Position Sitting Pulse 80 Intake Visit Reasons: Periumbilical hernia Intake Note: Patient called and schedule today's appointment concerned with periumbilical hernia. Reports hx of Umbilical hernia surgical repair in or around 2019. Patient c/o: pain at umbilical area. No recent imaging. Of note: [facility] records~ Dr. Deng office visit 10-14-2021 available for review. Ecd Required: Yes Accompanied by: Self / Same As Patient Allergies No Known Allergies Allergy (Verified 10/07/25 10:54) Medication List - Last Reconciled 10/07/25 by Skip Deng MD acetaminophen (Tylenol Extra Strength) 500 mg PO Q6H PRN albuterol sulfate 2.5 mg Q8H PRN albuterol sulfate 90 mcg/actuation 1 puff inhalation QID PRN famotidine 40 mg PO BEDTIME fluoxetine 40 mg PO DAILY fluticasone propionate 50 mcg/actuation 1 spray intranasal DAILY PRN inhalational spacing device As directed omega-3 acid ethyl esters 1 cap PO BID polyethylene glycol 3350 (Miralax) 17 grams PO DAILY rabeprazole 20 mg PO DAILY rosuvastatin 40 mg PO BEDTIME Held on 04/30/25. Instructions: Resume on 05/05/25. HPI Comments Details: 45-year-old female known to me presents with periumbilical pain and concerned about possibility of a hernia. This is a longstanding issue for her and she has had numerous investigations in the form of CT scans and ultrasounds and numerous presentations to the ER both here and at other institutions for abdominal discomfort. She has had multiple abdominal operations including prior umbilical hernia repair, panniculectomy in what sounds like recent hiatal hernia repair performed laparoscopically at [facility] in June although this is just from the patient reports. [facility] Medical History Abdominal pain Transaminitis Chronic pain syndrome Fibromyalgia Hyperlipidemia Anxiety History of umbilical hernia Surgical History History of excision of mass History of cholecystectomy History of breast augmentation History of bilateral breast reduction surgery History of abdominoplasty Family History Mother Colon cancer Other Asthma Social History Household Members: Spouse and Children Housing: House Do you presently have visiting nurse or other home services: No Alcohol intake: never Patient Tobacco Use Status: Never used Tobacco service: No Review of Systems Const All systems reviewed & are unremarkable except as noted in HPI and below Physical Exam Vital Signs: Last Vital Signs Pulse 80 10/07/25 10:48 BP 125/78 10/07/25 10:48 BMI result Body Mass Index 28.7 Const General: cooperative, healthy appearing and comfortable Orientation/consciousness: oriented to person, oriented to place and oriented to time HEENT Head: Yes normal to inspection, Yes normocephalic and Yes atraumatic Eyes Pupils: Equal, round and reactive pupils present EOM: EOMs intact bilaterally Neck Neck: Yes normal visual inspection Chest Chest palpation & inspection: normal inspection of the chest Resp Effort & Inspection: normal respiratory effort and able to speak in complete sentences Cardio Rate: regular rate Rhythm: regular rhythm GI Other: Obese soft nontender nondistended. She has changes again consistent with prior panniculectomy. She has had obvious surgical relocation of her umbilicus. I can not appreciate any masses or hernias. This is despite rigorous coughing and Valsalva during the exam. She locates the area of her discomfort around her umbilicus directly. Other than being surgically altered I can not appreciate any other abnormality. Neuro General: oriented to person, oriented to place and oriented to time Cranial nerves: Yes CN's II-XII intact bilaterally and Yes Equal, round and reactive pupils present Assessment & Plan Assessment & Plan (1) Abdominal wall pain: Code(s): R10.9 - Unspecified abdominal pain Category: Surgical Plan: I told the patient I did not know what the cause of her pain was however think an ultrasound of her umbilical region is not unreasonable. She has had so much surgery that even if she does have a tiny fascial defect may be very difficult to locate operatively and repair but that should not preclude investigation. We will see her back with the have the results of the above study in the meantime she is encouraged to contact us should she have any questions or problems. She said she was happy with that plan. Orders: Orders US abdomen limited Today R10.9 - Unspecified abdominal pain Coding Level of Care Code New Pt Level 3 (11659) Diagnoses Abdominal wall pain R10.9 Time Spent (min) 30 Comment Patient visit record review and coordination of care time
[2025-10-07 10:48] VITALS: BP 125/78; PULSE 80; BMI 28.7
== END 2025-10-07 11:10 | disposition home or self-care (01) ==
PROVIDERS: PCP Nurse Practitioner Primary Care; Visit Provider Surgery
DX: R10.9 Unspecified abdominal pain (principal)
CPT/HCPCS: 99203

== ENCOUNTER → 2025-10-07 10:46 | Outpatient (BNVA) | payer MEDICAID, SELFPAY | PROVIDERS: Visit Provider Surgery | DX: R10.33 Periumbilical pain (principal) | CPT/HCPCS: 99202 ==

== ENCOUNTER 2025-10-08 08:54 | Emergency (ER) | payer MEDICAID, SELFPAY ==
[2025-10-08 09:02] VITALS: BP 138/66; PULSE 67; RESP 16; TEMP 35.5; O2SAT 98; BMI 28.5
[2025-10-08 09:19] LABS: MANUAL DIFF FLAG NO
[2025-10-08 09:22] LABS: Hematocrit 36.6 % (37.0-47.0); Hemoglobin 11.7 g/dl (12.0-16.0); Imm Gran Abs Auto 0.02 X10*3/uL (0.00-0.03); Imm Gran Pct Auto 0.3 % (0.0-0.4); Lymphocytes Absolute Auto 2.2 X10*3/uL (1.2-4.9); Mean Corpuscular HGB Conc 32.0 g/dl (31.0-35.0); Mean Corpuscular Hemoglobin 28.6 pg (27.0-33.0); Mean Corpuscular Volume 89.5 fL (80.0-98.0); NRBC Abs Auto 0.000 X10*3/uL (0.0-0.012); NRBC Pct Auto 0.0 /100WBC (0.0-0.2); Platelet Count 278 X10*3/uL (160-400); Red Blood Count 4.09 X10*6/uL (4.20-5.50); White Blood Count 6.6 X10*3/uL (4.8-10.8)
[2025-10-08 09:49] LABS: Alanine Aminotransferase 10 U/L (0-31); Albumin Level 4.3 g/dL (3.5-5.0); Alkaline Phosphatase 66 U/L (39-117); Anion Gap 9 (12-20); Aspartate Amino Transferase 25 U/L (5-31); Blood Urea Nitrogen 10 mg/dL (9-16); Calcium 9.3 mg/dL (8.4-10.2); Carbon Dioxide 29 mmol/L (22-29); Chloride 107 mmol/L (96-108); Creatinine Clr Calc Pharmacy 118.8; Estimated Glomerular Filt Rate > 60; Potassium 4.1 mmol/L (3.3-5.1); Sodium 141 mmol/L (135-145); Total Protein 7.5 g/dL (6.5-8.0)
--- NOTE | 2025-10-08 10:02 | ED.GENADULT ---
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 Also reports associated foul-smelling urine and suprapubic discomfort. Denies fall or other trauma. Denies saddle anesthesia or bowel or bladder incontinence. Denies fevers. Denies history of IV drug use. MD complaint: back pain Onset (ago): week(s) Related Data Home Medications ?Medication ?Instructions ?Recorded ?Confirmed rosuvastatin 40 mg tablet 40 mg PO BEDTIME 05/09/24 10/07/25 Held on 04/30/25. Instructions: Resume on 05/05/25. acetaminophen 500 mg tablet 500 mg PO Q6H PRN fever or pain 04/27/25 10/07/25 (Tylenol Extra Strength) albuterol sulfate 2.5 mg/3 mL 2.5 mg Q8H PRN wheezing 04/27/25 10/07/25 (0.083 %) solution for nebulization famotidine 40 mg tablet 40 mg PO BEDTIME 04/27/25 10/07/25 fluoxetine 40 mg capsule 40 mg PO DAILY 04/27/25 10/07/25 fluticasone propionate 50 1 spray intranasal DAILY PRN 04/27/25 10/07/25 mcg/actuation nasal Allergy Symptoms spray,suspension omega-3 acid ethyl esters 1 gram 1 cap PO BID 04/27/25 10/07/25 capsule rabeprazole 20 mg tablet,delayed 20 mg PO DAILY 04/27/25 10/07/25 release Previous Rx's ?Medication ?Instructions ?Recorded albuterol sulfate 90 mcg/actuation 1 puff inhalation QID PRN 02/05/25 aerosol inhaler shortness of breath or wheezing #6.7 grams inhalational spacing device #1 ea 02/05/25 polyethylene glycol 3350 17 17 g PO DAILY #119 grams 05/08/25 gram/dose oral powder (Miralax) lidocaine 5 % topical patch 1 patch topical DAILY #15 ea 10/08/25 naproxen 500 mg tablet 500 mg PO BID #14 tabs 10/08/25 prednisone 10 mg tablet See Rx Instructions .Route 10/08/25 .COMPLEX #15 tabs Allergies Allergy/AdvReac Type Severity Reaction Status Date / Time No Known Allergies Allergy Verified 10/08/25 09:07 Review of Systems Review of Systems: as per hpi Yes all other systems are reviewed and are negative [facility] Past Medical History Medical History Abdominal pain Transaminitis Chronic pain syndrome Fibromyalgia Hyperlipidemia Anxiety History of umbilical hernia Surgical History History of excision of mass History of cholecystectomy History of breast augmentation History of bilateral breast reduction surgery History of abdominoplasty Family History Family History Mother Colon cancer Other Asthma Social History Social History Household Members: Spouse and Children Housing: House Do you presently have visiting nurse or other home services: No Alcohol intake: never Patient Tobacco Use Status: Never used Tobacco Advance Directives: No Advance Directives Information Provided: Yes service: No Physical Exam ED Vital Signs: Vital Signs - 24 hr 10/08/25 09:02 10/08/25 11:54 Temperature 96 F L 96.8 F Pulse Rate 67 60 Respiratory Rate 16 20 Blood Pressure 138/66 131/74 Pulse Oximetry 98 100 Oxygen Delivery Method Room Air Room Air BMI result Body Mass Index 28.5 Vital signs have been reviewed and appear to be correct. Blood pressure normal. Heart rate normal. Respiratory rate normal. Temperature normal. Oxygen saturation normal. Const General: cooperative, healthy appearing and no acute distress Orientation/consciousness: oriented to person, oriented to place, oriented to time and patient oriented x3 Limitations: no limitations HENMT Head: Yes normocephalic and Yes atraumatic Ears: external ears normal General nose exam: Normal external nose present Face and sinus: Yes face symmetric Mouth: oropharynx normal and moist mucous membranes Throat: Yes uvula midline Eyes Pupils: Equal, round and reactive pupils present Neck Neck: Yes normal visual inspection and Yes supple Resp Effort & Inspection: normal respiratory effort and able to speak in complete sentences Auscultation: clear to auscultation bilaterally Cardio Rate: regular rate Rhythm: regular rhythm Heart sounds: S1 normal heart sound present and S2 normal heart sound present GI Palpation (GI): Soft to palpation, Tenderness to palpation present (GI) suprapubicly, no guarding and No Rebound tenderness present Auscultation: normoactive bowel sounds General: Yes no CVA tenderness Back/Spine/Pelvis Back: no CVA tenderness Thoracic/Lumbar Spine: thoracic and lumbar spine normal to inspection, thoraco-lumbar ROM normal, pain with thoraco-lumbar ROM, paraspinal muscle tenderness on the right greater than left, No thoracic spinal tenderness and No lumbar spinal tenderness Skin General skin exam: elasticity normal and turgor normal Neuro General: oriented to person, oriented to place, oriented to time, patient oriented x3, moves all extremities, no focal motor deficits and CN's II-XI intact bilaterally Cranial nerves: Yes Equal, round and reactive pupils present Cognition (Neuro): normal cognition Extrem General: Yes full ROM, Yes no pedal edema and Yes no calf tenderness Psych Mental Status: mental status grossly normal Affect: normal affect Thought process: Normal thought process present Medications Administered Discontinued Medications Generic Name Dose Route Start Last Admin Trade Name Noé PRN Reason Stop Dose Admin Ketorolac Tromethamine 30 mg 10/08/25 10:48 10/08/25 11:08 Ketorolac Tromethamine 30 Mg/Ml Vial IM 10/08/25 10:49 30 mg ONCE ONE Administration Prednisone 60 mg 10/08/25 10:48 10/08/25 11:07 Prednisone 20 Mg Tablet PO 10/08/25 10:49 60 mg ONCE ONE Administration Medical Decision Making Medical Decision Making [facility] Narrative: Patient is a 45-year-old Swiss-speaking female with history of chronic lower back pain, fibromyalgia, chronic pain syndrome, anxiety presenting to the emergency department with complaint of lower back pain radiating down bilateral lower extremities, right worse than left, for the past week. On exam patient is awake, A+Ox3, VS WNL, afebrile, normal neurological exam without focal deficits, physical exam findings as above. Given reported symptoms and physical exam findings, initial differential includes but is not limited to UTI, acute on chronic back pain, lumbar strain, lumbar radiculopathy, degenerative disc disease, disc herniation, spinal stenosis, spondylosis. Less likely vertebral fracture. Do not suspect malignancy/mass, SEA, cauda equina/cord compression. Labs notable for anemia not at transfusable level. Do not feel imaging is indicated as patient denies trauma. Will check UA. Toradol and prednisone ordered. Patient reports significant improvement in pain after medications given in the ED and is requesting discharge home. Urinalysis is without evidence of infection. Will discharge patient home on tapering course of prednisone and naproxen. Advised follow up with PCP. Return precautions discussed. Patient verbalized understanding of and agreement with plan. In-person metal engraver was utilized for all interactions, assessments, and discussions. Differential Diagnosis Differential Diagnoses: The differential diagnosis associated with the presentation includes as per [facility] Admission/Observation Consideration of admission/observation: Escalation of care including admission/observation considered Patient would have been admitted to the hospital and transferred to appropriate facility had their clinical presentation warranted hospital admission. Lab Data [facility] Lab Attestation statement: I reviewed the patient's lab results. as per [facility] 10/08/25 09:16 10/08/25 09:16 Labs: Lab Results 10/08/25 10/08/25 Range/Units 09:16 11:09 WBC 6.6 (4.8-10.8) X10*3/uL RBC 4.09 L (4.20-5.50) X10*6/uL Hgb 11.7 L (12.0-16.0) g/dl Hct 36.6 L (37.0-47.0) % MCV 89.5 (80.0-98.0) fL MCH 28.6 (27.0-33.0) pg MCHC 32.0 (31.0-35.0) g/dl RDW 12.8 (11.0-16.0) % Plt Count 278 (160-400) X10*3/uL MPV 10.1 (9.4-12.3) fL Immature Gran % (Auto) 0.3 (0.0-0.4) % Neut % (Auto) 53.5 (45-73) % Lymph % (Auto) 33.8 (20-40) % [place] % (Auto) 9.4 (2-11) % Eos % (Auto) 1.8 (0-4) % Baso % (Auto) 1.2 (0-2) % Lymph # (Auto) 2.2 (1.2-4.9) X10*3/uL [place] # (Auto) 0.6 (0.1-1.2) X10*3/uL Eos # (Auto) 0.1 (0.0-0.4) X10*3/uL Baso # (Auto) 0.1 (0.0-0.2) X10*3/uL Abs Immat Gran (auto) 0.02 (0.00-0.03) X10*3/uL Absolute Neuts (auto) 3.5 (2.0-8.3) x10*3/uL Absolute Nucleated RBC 0.000 (0.0-0.012) X10*3/uL Nucleated RBC % (auto) 0.0 (0.0-0.2) /100WBC Sodium 141 (135-145) mmol/L Potassium 4.1 (3.3-5.1) mmol/L Chloride 107 (96-108) mmol/L Carbon Dioxide 29 (22-29) mmol/L Anion Gap 9 L (12-20) BUN 10 (9-16) mg/dL Creatinine 0.56 (0.5-1.4) mg/dL Estim Creat Clear Calc 118.8 Estimated GFR > 60 Random Glucose 88 (60-115) mg/dL Calcium 9.3 (8.4-10.2) mg/dL Total Bilirubin 0.8 (0.0-1.0) mg/dL Direct Bilirubin 0.2 (0.0-0.5) mg/dL AST 25 (5-31) U/L ALT 10 (0-31) U/L Alkaline Phosphatase 66 (39-117) U/L Total Protein 7.5 (6.5-8.0) g/dL Albumin 4.3 (3.5-5.0) g/dL Urine Color Yellow Urine Appearance Clear Urine pH 8.0 (5.0-9.0) Ur Specific [place] 1.015 (1.005-1.025) Urine Protein Negative (Neg-Trace) mg/dL Urine Glucose (UA) Negative (Negative) mg/dL Urine Ketones Negative (Negative) mg/dL Urine Blood Negative (Negative) Urine Nitrite Negative (Negative) Ur Leukocyte Esterase Negative (Negative) External Record Review External record reviewed: Inpatient record, Office record and Outpatient record Prescription Management I considered prescription management with: Pain Medication and Other Discharge Plan Discharge Clinical Impression: Acute exacerbation of chronic low back pain Patient Disposition: Home, Self-Care Instructions: Chronic Pain (ED) Additional Instructions: You were evaluated in the emergency department today for lower back pain. This is likely due to an inflammation of the sciatic nerve with runs from the lower back down both legs. You are being prescribed a course of prednisone which is a steroid to decrease inflammation. You are also being prescribed naproxen which is an anti-inflammatory medication. You have been prescribed 5% topical lidocaine patches which you can wear for up to 12 hours in a 24 hour period. Do not apply heat directly over the patches. Use all medications as prescribed. Please schedule an appointment for follow-up with your primary care physician this week for further evaluation of your symptoms. Return to the emergency department if you experience worsening back pain, difficulty walking, fevers, numbness, tingling, incontinence, groin numbness or tingling, or any other concerning symptoms. Prescriptions: New prednisone 10 mg tablet See Rx Instructions .ROUTE .COMPLEX Qty: 15 0RF Rx Instructions: 50mg (5 tabs) x1 day, then 40 mg (4 tabs) x1 day, then 30 mg (3 tabs) x1 day, then 20 mg (2 tabs) times 1 day, then 10 mg (1 tab) x1 day lidocaine 5 % adhesive patch,medicated 1 patch topical DAILY Qty: 15 0RF Rx Instructions: leave on most painful area for up to 12 hrs naproxen 500 mg tablet 500 mg PO BID Qty: 14 0RF No Action polyethylene glycol 3350 [Miralax] 17 gram/dose powder 17 g PO DAILY Qty: 119 0RF rosuvastatin 40 mg tablet 40 mg PO BEDTIME albuterol sulfate 90 mcg/actuation HFA aerosol inhaler 1 puff inhalation QID PRN (Reason: shortness of breath or wheezing) Qty: 6.7 1RF (DME) inhalational spacing device Spacer See Rx Instructions .Route Qty: 1 0RF Rx Instructions: As directed fluoxetine 40 mg Capsule 40 mg PO DAILY rabeprazole 20 mg tablet,delayed release (DR/EC) 20 mg PO DAILY albuterol sulfate 2.5 mg /3 mL (0.083 %) solution for nebulization 2.5 mg Q8H PRN (Reason: wheezing) famotidine 40 mg tablet 40 mg PO BEDTIME fluticasone propionate 50 mcg/actuation spray,suspension 1 spray intranasal DAILY PRN (Reason: Allergy Symptoms) omega-3 acid ethyl esters 1 gram capsule 1 cap PO BID acetaminophen [Tylenol Extra Strength] 500 mg tablet 500 mg PO Q6H PRN (Reason: fever or pain) Print Language: Swiss
[2025-10-08 11:19] LABS: Appearance Urine Clear; Glucose Urine UA Negative (Negative); PH 8.0 (5.0-9.0); Specific Gravity - Urine 1.015 (1.005-1.025)
[2025-10-08 11:54] VITALS: BP 131/74; PULSE 60; RESP 20; TEMP 36; O2SAT 100
== END 2025-10-08 12:27 | disposition home or self-care (01) ==
PROVIDERS: Registered Nurse Emergency; Emergency Provider Emergency Medicine; PCP Nurse Practitioner Primary Care
DX: M54.50 Low back pain, unspecified (principal); Z79.899 Other long term (current) drug therapy; M79.605 Pain in left leg; M79.604 Pain in right leg
CPT/HCPCS: 36415; 80048; 80076; 81003; 85025; 96372; 99283; 99284; J1885

== ENCOUNTER 2025-10-26 09:46 | Outpatient (REF) | payer MEDICAID, SELFPAY ==
--- OUTSIDE RECORDS SUMMARY | 2025-10-26 09:00 | XMS_ITS | Encounter Summary ---
Author Organization [employer] Address [address] [place] [address] Care Team Providers Care Lpn Home Health Name Role Phone Ashwin Evy JULES Primary Care Provider [phone] Scar Pimentel RN Unavailable [phone] Tawny Frias Unavailable Reason for Visit * Reason Comments Cough Encounter Details Date Type Department Care Team (Latest Contact Info) Description 10/26/2025 9:00 AM EST Office Visit [facility] [address] [place] [address] Acute nasopharyngitis (Primary Dx); Sore throat; Pain of both breasts; Right upper quadrant abdominal pain Social History Tobacco Use Types Packs/Day Years [...] before you got money to buy more: Often true 2024 Within the past 12 months,th e food you bought just didn't last and you didn't have enough money to get more: Sometimes True 10/16/2025 Transportation Answer Date Recorded In the past 12 months, has l ack of transportation kept you from medical appts, meetings, work or from getting things needed for daily living? No 09/11/2023 Utilities Answer Date Recorded In the past 12 months, has t he electric, gas, oil or water company threatened to shut off services in your home? Yes 10/16/2025 Depression Answer Date Recorded Patient Health Questionnaire-2 Score 0 08/04/2025 Internet Access Answer Date Recorded Internet Access Q1 No 10/16/2025 Internet Access Q2 Not on file 10/16/2025 Comments No Sex and Gender Information Value Date Recorded Sex Assigned at Female 08/28/2022 10:14 AM EDT Legal Sex Female 10:14 AM EDT Gender Identity Choose not to disclose 10:14 AM EDT Sexual Orientation Straight 08/28/2022 10 :14 AM EDT documented as of this encounter Last Filed Vital Signs Vital Sign Reading Time Taken Comments Blood Pressure 130/85 10/26/2025 9:05 AM EST Pulse 73 10/26/2025 9:05 AM EST Temperature 36.8 C (98.2 F) 10/26/2025 9:05 AM EST Respiratory Rate 18 10/26/2025 9:05 AM EST Oxygen Saturation 97% 10/26/2025 9:05 AM EST Inhaled Oxygen Concentration - - Weight 75.7 kg (166 lb 12.8 oz) 10/26/2025 9:05 AM EST Height 160 cm (5' 3 ) 10/26/2025 9:05 AM EST Body Mass Index 29.55 10/26/2025 9:05 AM EST documented in this encounter Plan of Treatment Upcoming Encounters Date Type Department Care Team (Late st Contact Info) Description 11/09/2025 11:30 AM EST Office Visit [facility] [address] [place] [address] Evy Christopher ANP [address] [place] [address] Scheduled Orders Name Type Priority Associated Diagnoses Orde r Schedule Amylase Lab Routine Right upper quadrant abdominal pain Expected: 10/26/2025 (Approximate), Expires: 10/26/2026 Lipase Lab Routine Right upper quadrant abdominal pain Expected: 10/26/2025, Expires: 10/26/2026 Comprehensive Metabolic Panel Lab Routine Right upper quadrant abdominal pain Expected: 10/26/2025 (Approximate), Expires: 10/26/2026 CBC auto differential Lab Routine Right upper quadrant abdominal pain Expected: 10/26/2025 (Approximate), Expires: 10/26/2026 documented as of this encounter Procedures Procedure Name Priority Date/Time Associated Diagnosis Comments POCT URINALYSIS DIPSTICK Routine 10/26/2025 10:00 AM EST Right upper quadrant abdominal pain POCT INFLUENZA B (ID NOW RAPID MOLECULAR) Routine 10/26/2025 9:17 AM EST Sore throat POCT INFLUENZA A (ID NOW RAPID MOLECULAR) Routine 10/26/2025 9:17 AM EST Sore throat POC NICHOLS ID NOW STREP A Routine 10/26/2025 9:12 AM EST Sore throat POCT RAPID COVID ANTIGEN Routine 10/26/2025 9:11 AM EST Sore throat documented in this encounter Results * POCT urinalysis dipstick manually resulted (CPT 49229) (10/26/2025 10:00 AM EST) Color, UA Yellow Clarity, UA Clear Glucose, UA Negative Bilirubin, UA Negative Ketones, UA Negative Spec Grav, UA 1.020 Blood, UA Negative Negative, None Detected pH, UA 6.0 Protein, UA Negative Urobilinogen, UA 1.0 Leukocytes, UA Negative Negative, Rare, Trace, 1+ (17), 2+ (35), 3+ (70), Trace (15) Nitrite, UA Negative Negative, None Detected Appearance, UA clear QC Media Lot # [id number] Lot# Expiration Date [id number] Urine (Urine, Random) 10/26/2025 10:00 AM EST us Rosalva Appram PRESS OPERATOR PRINTING POINT OF CARE TEST ENTER/EDIT O RDERABLES Final Result * POCT Rapid Influenza B NICHOLS ID NOW (10/26/2025 9:17 AM EST) Influenza B Negative Negative, Indeterminate [facility] QC Media Lot # [id number] [facility] Lot# Expiration Date [facility] Swab 10/26/2025 9:17 AM EST us Rosalva Appram PRESS OPERATOR PRINTING POINT OF CARE TEST ENTER/EDIT O RDERABLES Final Result Performing Organization Address [facility]/ZIP Co de Phone Number [facility] [address] [place] [phone] * POCT Rapid Influenza A NICHOLS ID NOW (10/26/2025 9:17 AM EST) Influenza A Negative Negative, Indeterminate [facility] QC Media Lot # [id number] [facility] Lot# Expiration Date [facility] Swab 10/26/2025 9:17 AM EST us Rosalva Miramontesm PRESS OPERATOR PRINTING POINT OF CARE TEST ENTER/EDIT O RDERABLES Final Result Performing Organization Address City/[facility]/ZIP Co de Phone Number [facility] [address] [place] [phone] * POCT Rapid Strep A NICHOLS ID NOW (10/26/2025 9:12 AM EST) Pathologist [facility] Rapid Strep A Screen Negative Negative, None Detected QC Media Lot # [id number] Lot# Expiration Date 4,127 Swab 10/26/2025 9:12 AM EST us Rosalva Appram PRESS OPERATOR PRINTING POINT OF CARE TEST ENTER/EDIT O RDERABLES Final Result * POCT Rapid Covid-19 [employer]NOW (10/26/2025 9:11 AM EST) Rapid COVID Ag Negative QC Media Lot # [id number] Lot# Expiration Date [id number] Swab 10/26/2025 9:11 AM EST Rosalva Folres PRESS OPERATOR PRINTING POINT OF CARE TEST ENTER/EDIT O RDERABLES Final Result documented in this encounter Visit Diagnoses Diagnosis Acute nasopharyngitis- Primary Acute nasopharyngitis (common cold) Sore throat Acute pharyngitis Pain of both breasts Right upper quadrant abdominal pain documented in this encounter Additional Health Concerns Assessment Noted Time PHQ-9 Depression Total Score: 0 08/04/20 11:55 AM EDT documented as of this encounter Care Teams Lpn Home Health Relationship Specialty Start Date End Date Evy Christopher ANP [address] [place] [address] PCP - General Family Medicine 06/20/21 Scar Pimentel, SUKHWINDER [address] [place] [phone] Registered Nurse Family Medicine 07/13/25 Tawny Frias 07/13/25 documented as of this encounter
--- OUTSIDE RECORDS SUMMARY | 2025-10-26 10:26 | XMS_ITS | Encounter Summary ---
Author Organization [employer] Address [address] [place] [address] Care Team Providers Care Stiff Leg Operator Name Role Phone Evy Christopher Primary Care Provider [phone] Scar Pimentel RN Unavailable [phone] Tawny Frias Unavailable Reason for Visit * Reason Onset Date Comments Results 09/02/2025 Encounter Details Date Type Department Care Team (Latest Contact Info) Description 09/02/2025 Results Follow-Up [facility] [address] [place], [place] [phone] Evy Christopher ANP [address] [place] [address] Lipid Panel, Standard, Comprehensive Metabolic Panel, Lipase [...] the past 12 months, has t he [employer], gas, oil or water [employer] threatened to shut off services in your [...] Telephone call placed to pt utilizing S #[id number] regarding below results and POC. Pt confirmed labswere done fasting. She reports that she has not been taking rosuvastatin because she requested a refill but it was never sent. Informed PCP sent refill today to her [facility]. Advised to take before bedtime every night [...] Description 11/09/2025 11:30 AM EST Office Visit [facility] [address] [place] [phone] Evy Christopher ANP [address] [place] [address] documented as of this encounter Visit Diagnoses Diagnosis Mixed hyperlipidemia- Primary documented in this encounter Additional Health Concerns Assessment Noted Time PHQ-9 Depression Total Score: 0 08/04/20 25 11:55 AM EDT documented as of this encounter Care Teams Stiff Leg Operator Relationship Specialty Start Date End Date Evy Christopher ANP [address] [place] [address] PCP - General Family Medicine 06/20/21 Scar Pimentel, SUKHWINDER [address] [place] [phone] Registered Nurse Family Medicine 07/13/25 Tawny Frias 07/13/25 documented as of this encounter
--- OUTSIDE RECORDS SUMMARY | 2025-10-26 10:27 | XMS_ITS | Clinical Summary ---
Author Organization [employer] Address [address] [facility] [address] [place] [address] Care Team Providers Care Speech Therapist Name Role Phone Trevor Medina JORGE A Primary Care Provider [phone] Scar Pimentel RN Unavailable [phone] Tawny Frias Unavailable Allergies Active Allergy Reactions [...] after use. 2 each 024 Active FreeStyle lancetsIndications :Prediabetes 1 each by Other route if needed each day (blood sugar). 100 each 2 025 Active tiZANidine (Zanaflex) 2 MG tablet Take 2 tablets (4 mg) by mouth every 8 (eight) hours if needed for muscle spasms for up to 10 days. 40 tablet 025 Active omega-3 acid ethyl esters (Lovaza) 1 g capsule Take 1 capsule by mouth 2 times daily. 025 Active pantoprazole (ProtoNix) 40 MG EC tablet Take 1 tablet by mouth 2 times daily. Active famotidine (Pepcid) 40 MG tablet Take 1 tablet (40 mg) by mouth at bedtime. 90 tablet 1 Active ondansetron (Zofran) 4 MG tablet 1-2 tab po TID prn nasuea/vomitin g 30 tablet 1 Active albuterol (2.5 MG/3ML) 0.083% nebulizer solutionIndication s:Moderate persistent asthma with exacerbation Take 3 mL by nebulization every 8 (eight) hours if needed for wheezing or shortness of breath. 75 mL 3 Active albuterol 108 (90 Base) MCG/ACT inhalerIndications :Moderate persistent asthma with exacerbation Inhale 2 puffs every 4 (four) hours if needed for wheezing. 18 g 3 Active Alcohol Swabs (B-D SINGLE USE SWABS REGULAR) padsIndications:Pr ediabetes USE TO CHECK BLOOD SUGAR EVERY MORNING DIRECTED. 100 each 11 Active FREESTYLE LITE test stripIndications:P rediabetes USE TO CHECK FASTING SUGAR IN THE MORNING OR NEEDED FOR SYMPTOMS 100 strip 11 Active Zepbound 10 MG/0.5ML solution auto-injector Inject 10 mg under the skin every 7 (seven) days. Active sucralfate (Carafate) 1 GM/10ML suspension Shake liquid and take 10 ml three times a day before meals and at bedtime Active rosuvastatin (Crestor) 40 MG tabletIndications: Mixed hyperlipidemia Take 1 tablet (40 mg) by mouth Once per day. 90 tablet 3 025 2025 Active nystatin (Mycostatin) 780676 UNIT/ML suspensionIndicati ons:Thrush, oral Take 4 ml switch and spit twice daily x 10 days 4 mL Active FLUoxetine (PROzac) 20 MG capsuleIndications :SHANNA (generalized anxiety disorder) Take 1 capsule (20 mg) by mouth Once per day. 90 capsule 1 025 2025 Active fluticasone (Flonase) 50 MCG/ACT nasal sprayIndications:A cute nasopharyngitis Administer 1 spray into each nostril 2 times daily. Shake gently. Before first use, prime pump. After use, clean tip and replace cap. 16 g 1 025 2025 Active acetaminophen (Tylenol Extra Strength) 500 MG tabletIndications: Acute nasopharyngitis Take 1-2 tabs as needed up to TID for pain, no more than 6 tabs per day 120 tablet Active ibuprofen 400 MG tabletIndications: Acute nasopharyngitis Take 1 tablet (400 mg) by mouth every 6 (six) hours if needed for moderate pain or fever for up to 30 doses. 30 tablet Active benzocaine-menthol (Cepastat Sore Throat) 15-3.6 MGIndications:Sore throat Dissolve 1 lozenge in the mouth every 2 (two) hours if needed for sore throat. 168 lozenge Active fluticasone (Flonase) 50 MCG/ACT nasal sprayIndications:N carmencita congestion 1-2 sprays per nostril as needed up to BID. Shake gently. Before first use, prime pump. After use, clean tip and replace cap. 48 g 025 2024 Discontinued FLUoxetine (PROzac) 40 MG capsuleIndications :SHANNA (generalized anxiety disorder) Take 1 capsule (40 mg) by mouth Once per day. 90 capsule 1 025 2024 Discontinued(R eorder (will not trigger notification to Pharmacy)) acetaminophen (Tylenol Extra Strength) 500 MG tablet Take 1-2 tabs as needed up to TID for pain, no more than 6 tabs per day 120 tablet 025 2024 Discontinued(R eorder (will not trigger notification to Pharmacy)) ibuprofen 400 MG tabletIndications: Pain of both breasts Take 1 tablet (400 mg) by mouth every 6 (six) hours if needed for moderate pain or fever for up to 30 doses. 30 tablet 025 2024 Discontinued(R eorder (will not trigger notification to Pharmacy)) Active Problems Problem Noted Date Diagnosed Date History of repair of hiatal hernia 10/16/2025 Overview (10/16/2025): 06/30/25 Dr. Rod Chronic pancreatitis ([facility]) 05/06/2025 Assessment & Plan (05/06/2025 12:04 AM [...] to stop med -I called today her [facility] GI office and discussed about chronic [...] with PCP Cyclobenzaprine 5mg Q 8hrs (I addictions counselor assistant about side effect somnolence, she can not [...] AM EST): Pt is in care with x ray technician, utd on mammogram, pap completed 09/20, GI [...] s/p back injections f w ortho at [facility] Here w 1 week of pain reports only in buttock area , per pt in hip but no pain in lateral aspect concerning x trochanteric bursitis Pain radiates to back of buttock so appears sciatica vs piriformis syndrome -right hip XR today at [facility] is reported as normal -warm compresses [...] pt report UTD on pap, managed by x ray technician Right ovarian cyst 04/17/2021 Overview (06/23/2024): 06/2023 measuring 3.0 x 2.9 x 2.8 cm Prediabetes 01/22/2019 Overview (09/09/2024): Lab Results Component Value Date HGBA1C 5.7 09/11/2023 HGBA1C 5.2 07/07/2022 HGBA1C 5.2 02/23/2021 Mild persistent asthma without complication 11/29 Hyperlipidemia 12/03/2015 Overview (09/11/2023): Cont rosuvastatin 40mg Assessment & Plan (12/31/2023 10:17 AM EST): Continue rosuvastatin 40 mg, labs completed at [facility] Chronic abdominal pain 12/03/2015 Assessment & [...] Encounters Date Type Department Care Team Description 10/26/2025 9:00 AM EST Office Visit [facility] [address] [place] [phone] Acute nasopharyngitis (Primary Dx); Sore throat; Pain of both breasts; Right upper quadrant abdominal pain 10/26/2025 Travel 10/16/2025 9:00 AM EST Office Visit [facility] [address] [place] [phone] Trevor Medina ANP YANI (obstructive sleep apnea) (Primary Dx); History of repair of hiatal hernia; Transaminitis; Hyperlipidemia, unspecified hyperlipidemia type; Dietary counseling; Exercise counseling; SHANNA (generalized anxiety disorder) 10/16/2025 Travel 10/15/2025 9:40 AM EST Office Visit [facility] [address] [place] [phone] Chantelle Mitchell, ISHA Upper respiratory tract infection, unspecified type (Primary Dx); Generalized body aches; Thrush, oral 10/15/[address] [address] Trevor Medina ANP chart prep 10/15/2025 Travel 10/13/[address] [address] Estelle Flynn RN ER Follow-up 10/12/2025 Patient Outreach [address] [address] Trevor Medina ANP Care Management (C3CM- f/u call) 10/08/2025 Orders Only GENERIC EXTERNAL DATA DEPARTMENT Provider, Generic External Data 09/28/2025 Patient Outreach [address] [phone] Trevor Medina ANP Care Management (C3CM- f/u call) 09/17/[address] [address] Trevor Medina ANP 09/15/2025 Orders Only [address] [address] Trevor Medina ANP 09/11/[address] [address] Trevor Medina ANP No Show 09/11/2025 Patient Outreach [address] [address] Trevor Medina ANP Care Management (C3CM- f/u call lvm) 09/10/[address] [address] Trevor Medina ANP chart prep 09/02/2025 Results Follow-Up [address] [address] Trevor Medina ANP Lipid Panel, Standard, Comprehensive Metabolic Panel, Lipase 08/28/2025 Patient Outreach [address] [address] Trevor Medina ANP Care Management (C3CM- f/u call) 08/27/[address] [address] Trevor Medina ANP chart prep 08/25/2025 Patient Outreach [address] [address] Trevor Medina ANP 08/21/2025 Patient Outreach [address] [address] Trevor Medina ANP 08/20/[address] [facility] [address] [place] [address] Trevor Medina ANP Chest Pain 08/18/[address] [address] Trevor Medina ANP Transition Of Care (Tcm) 08/17/[address] [address] Trevor Medina ANP nurse traige 08/14/2025 Patient Outreach [address] [address] Trevor Medina ANP Care Management (C3CM- f/u call) 08/11/[address] [address] Trevor Medina ANP Transition Of Care (Tcm) 08/05/2025 Plan of Care Documentation [address] [phone] 08/04/[address] [address] Trevor Medina ANP Prediabetes 08/04/2025 Patient Outreach [address] [address] Trevor Medina ANP Care Management (C3CM- initial assessment/ enrollment) 08/03/[address] [address] Trevor Medina ANP Moderate persistent asthma with exacerbation 08/03/2025 Patient Outreach [address] [address] Trevor Medina ANP Care Coordination (CM/CHW appointment reminder) 07/30/[address] [address] Trevor Medina ANP september07/27/2025 1:45 PM EDT Office Visit [address] [address] Chantelle Mitchell FNP Encounter for adult wellness visit (Primary Dx); Prediabetes; Encounter for immunization; Excess skin of thigh; Excess skin of arm 07/27/2025 Travel 07/27/2025 Patient Outreach [address] [address] Trevor Medina ANP from Last 3 Months Immunizations Immunization Administration [...] Mass Index 29.55 10/26/2025 9:05 AM EST Plan of Treatment Upcoming Encounters Date Type Department Care Team (Late st Contact Info) Description 11/09/2025 11:30 AM EST Office Visit [facility] [address] [place], [place] [phone] Trevor Medina, ANP [address] [place] [address] Health Maintenance Due Date Last Done Comments CT Colonography 1978 Dental Oral Exam 1978 Dental Prophylaxis 1978 FIT DNA/Cologuard 1978 FIT 1978 FOBT 1980 Sigmoidoscopy 1980 Dental X-Ray: Bitewings 09/27/2024 09/26/2023 COVID-19 Vaccine ( season) 2025 11/03/2022, 11/27/2021, 11/27/2021, Additional history exists Alcohol/Substance Use Screening 04/02/2026 04/02/2025 Diabetes: Hemoglobin A1C 07/27/2026 025, 11/12/2024, 09/19/2024, Additional history exists Family Planning (PISQ) 07/29/2026 Postp oned from 1993 (Other Medical Reasons) Depression Screening 08/04/2026 08/04/2025, 08/04/20 Dental X-Ray: Full Mouth 09/08/2026 09/07/2023 Mammogram 09/16/2026 09/16/2025, 08/29, 09/16/2025, Additional history exists Disability Screening 10/16/2026 10/16/2025 SDOH Screening 10/16/2026 10/16/2025 Tobacco Screening 10/26/2026 10/26/2025 Zoster Vaccines (1 of 2) 2028 Lipid [...] Routine 10/26/2025 9:11 AM EST Sore throat POCT RAPID COVID ANTIGEN Routine 10/15/2025 10:09 AM EST Generalized body aches POCT INFLUENZA A (ID NOW RAPID MOLECULAR) Routine 10/15/2025 10:09 AM EST Generalized body aches POCT INFLUENZA B (ID NOW RAPID MOLECULAR) Routine 10/15/2025 10:09 AM EST Generalized body aches URINALYSIS WITH REFLEX MICROSCOPIC Routine 10/08/2025 11:09 AM EST BASIC METABOLIC PANEL Routine 10/08/2025 9:16 AM EST HEPATIC FUNCTION PANEL Routine 10/08/2025 9:16 AM EST CBC WITH AUTO DIFFERENTIAL Routine 10/08/2025 9:16 AM EST BI US BREAST LIMITED BILATERAL Routine 09/16/2025 10:11 AM EST MAMMOGRAPHY Routine 09/16/2025 9:43 AM EST BI MAMMOGRAM DIAG W LUKAS W IMPLANTS HARJEET Routine 09/15/2025 1:22 PM EST LIPASE Routine 08/31/2025 8:16 AM EST Chronic pancreatitis, unspecified pancreatitis type (CMS/HCC) (HCC) COMPREHENSIVE METABOLIC PANEL Routine 08/31/2025 8:16 AM EST Hyperlipidemia, unspecified hyperlipidemia type LIPID PANEL, STANDARD Routine 08/31/2025 8:16 AM EST Hyperlipidemia, unspecified hyperlipidemia type POCT GLYCATED HEMOGLOBIN, TOTAL Routine 07/27/2025 1:44 PM EDT Prediabetes COLONOSCOPY Routine 09/01/2024 HEPATITIS C AB W/REFL TO HCV RNA, QN, PCR Routine 11/16/2023 9:23 AM EST Elevated ferritin level BITEWING - SINGLE RADIOGRAPHIC IMAGE Routine 09/26/2023 11:30 AM EST Failing root canal HIV ANTIBODY/ANTIGEN ([place] DPH) Routine 07/12/2023 9:10 AM EDT PAP/HPV Routine 12/31/2013 from Last 3 Months or Most Recently Relevant to Health Maintenance Results * POCT urinalysis dipstick manually resulted (CPT 32023) (10/26/2025 10:00 AM EST) Color, UA Yellow [...] Urine (Urine, Random) 10/26/2025 10:00 AM EST [facility] STATISTICAL SECRETARY POINT OF CARE TEST ENTER/EDIT O RDERABLES Final Result * POCT Rapid Influenza B NICHOLS ID NOW (10/26/2025 9:17 AM EST) Only the most recent of2 resultswithin the time period is included. Influenza B Negative Negative, Indeterminate [facility] QC Media Lot # [id number] [facility] Lot# Expiration Date [facility] Swab 10/26/2025 9:17 AM EST [facility] STATISTICAL SECRETARY POINT OF CARE TEST ENTER/EDIT O RDERABLES Final Result Performing Organization Address [facility] Co de Phone Number [facility] [address] [place] [phone] * POCT Rapid Influenza A NICHOLS ID NOW (10/26/2025 9:17 AM EST) Only the most recent of2 resultswithin the time period is included. Influenza A Negative Negative, Indeterminate [facility] QC Media Lot # [id number] [facility] Lot# Expiration Date [facility] Swab 10/26/2025 9:17 AM EST [facility] STATISTICAL SECRETARY POINT OF CARE TEST ENTER/EDIT O RDERABLES Final Result Performing Organization Address [facility] de Phone Number [facility] [address] [place] [phone] * POCT Rapid Strep A NICHOLS ID NOW (10/26/2025 9:12 AM EST) Rapid Strep A Screen Negative Negative, None Detected QC Media Lot # [id number] Lot# Expiration Date 4,127 Swab 10/26/2025 9:12 AM EST [facility] POINT OF CARE TEST ENTER/EDIT O RDERABLES Final Result * POCT Rapid Covid-19 BinaxNOW (10/26/2025 9:11 AM EST) Only the most recent of2 resultswithin the time period is included. Rapid COVID Ag Negative QC Media Lot # [id number] Lot# Expiration Date [id number] Swab 10/26/2025 9:11 AM EST [facility] STATISTICAL SECRETARY POINT OF CARE TEST ENTER/EDIT O RDERABLES Final Result * Urinalysis w/reflex microscopic (10/08/2025 11:09 AM EST) Pathologist [facility] Color Urine Yellow [facility] Appearance Urine Clear [facility] PH 8.0 5.0 - 9.0 [facility] Glucose Urine UA Negative Negative mg/dL [facility] Urine Blood Negative Negative [facility] Specific Lund - Urine 1.015 1.005 - 1.025 [facility] Urine Protein Negative Neg-Trace mg/dL [facility] Urine Ketones Negative Negative mg/dL [facility] Nitrite Urine Negative Negative [facility] Leukocyte Esterase Urine Negative Negative [facility] 10/08/2025 11:0 9 AM EST 10/08/2025 11:12 AM EST Narrative [facility] - 10/08/2025 11:19 AM EST Urine, Clean Catch Generic External Data Provider LAB URINE ORDERAB LES Final Result [facility] [address] [place] [phone] * (ABNORMAL) CBC auto differential (10/08/2025 9:16 AM EST) White Blood Count 6.6 4.8 - 10.8 X10*3/uL [facility] Red Blood Count 4.09(L) 4.20 - 5.50 X10*6/uL [facility] Hemoglobin 11.7(L) 12.0 - 16.0 g/dl [facility] Hematocrit 36.6(L) 37.0 - 47.0 % [facility] Mean Corpuscular Volume 89.5 80.0 - 98.0 fL [facility] Mean Corpuscular Hemoglobin 28.6 27.0 - 33.0 pg [facility] Mean Corpuscular HGB Conc 32.0 31.0 - 35.0 g/dl [facility] Red Cell Distribution Width 12.8 11.0 - 16.0 % [facility] Platelet Count 278 160 - 400 X10*3/uL [facility] Mean Platelet Volume 10.1 9.4 - 12.3 fL [facility] Neutrophils Percent Auto 53.5 45 - 73 % [facility] Imm Gran Pct Auto 0.3 0.0 - 0.4 % [facility] Lymphocytes Percent Auto 33.8 20 - 40 % [facility] Monocytes Percent Auto 9.4 2 - 11 % [facility] Eosinophils Percent Auto 1.8 0 - 4 % [facility] Basophils Percent Auto 1.2 0 - 2 % [facility] NRBC Pct Auto 0.0 0.0 - 0.2 /100WBC [facility] Neutrophils Absolute Auto 3.5 2.0 - 8.3 x10*3/uL [facility] Imm Gran Abs Auto 0.02 0.00 - 0.03 X10*3/uL [facility] Lymphocytes Absolute Auto 2.2 1.2 - 4.9 X10*3/uL [facility] Monocytes Absolute Auto 0.6 0.1 - 1.2 X10*3/uL [facility] Eosinophils Absolute Auto 0.1 0.0 - 0.4 X10*3/uL [facility] Basophils Absolute Auto 0.1 0.0 - 0.2 X10*3/uL [facility] NRBC Abs Auto 0.000 0.0 - 0.012 X10*3/uL [facility] 10/08/2025 9:16 AM EST 10/08/2025 9:18 AM EST Generic External Data Provider LAB BLOOD ORDERAB LES Final Result Performing Organization Address [facility] de Phone Number [facility] [address] [place] [phone] * Hepatic Function Panel (10/08/2025 9:16 AM EST) [facility] Bilirubin, Total 0.8 0.0 - 1.0 mg/dL [facility] Bilirubin, Direct 0.2 0.0 - 0.5 mg/dL [facility] Aspartate Amino Transferase 25 5 - 31 U/L [facility] Alanine Aminotransferase 10 0 - 31 U/L [facility] Total Protein 7.5 6.5 - 8.0 g/dL [facility] Albumin Level 4.3 3.5 - 5.0 g/dL [facility] Alkaline Phosphatase 66 39 - 117 U/L [facility] 10/08/2025 9:16 AM EST 10/08/2025 9:18 AM EST Generic External Data Provider LAB BLOOD ORDERAB LES Final Result Performing Organization Address [facility] de Phone Number [facility] [address] [place] [phone] * (ABNORMAL) Basic Metabolic Panel (10/08/2025 9:16 AM EST) [facility] Sodium 141 135 - 145 mmol/L [facility] Potassium 4.1 3.3 - 5.1 mmol/L [facility] Chloride 107 96 - 108 mmol/L [facility] Carbon Dioxide 29 22 - 29 mmol/L [facility] Anion Gap 9(L) 12 - 20 [facility] Urea Nitrogen (BUN) 10 9 - 16 mg/dL [facility] Creatinine, Serum 0.56 0.5 - 1.4 mg/dL [facility] Creatinine Clr Calc Pharmacy 118.8 [facility] Comment:Provided height and weight: 160.02 cm,73.028 kg.eGFR (calculated from the MDRD study equation) and eCrCl(calculated from the Cockcroft-Gault equation) are based ondifferent parameters and may not yield comparable results.If eCrCl result is absurd, please check patient'sheight/weight. Estimated Glomerular Filt Rate >60 [facility] Comment:Chronic Kidney Disea se: Estimated GFR < 60 mL/min/1.22m9Updego Kidney Disease: Estimated GFR < 15 mL/min/1.73m2 Glucose 88 60 - 115 mg/dL [facility] Calcium 9.3 8.4 - 10.2 mg/dL [facility] 10/08/2025 9:16 AM EST 10/08/2025 9:18 AM EST us Generic External Data Provider LAB BLOOD ORDERAB LES Final Result Performing Organization Address City/State/[facility] Co de Phone Number [facility] [address] [place] [phone] * BI US Breast Limited Bilateral (09/16/2025 10:11 AM EST) Anatomical Region Laterality Modality Breast Bilateral Ultrasound 09/16/2025 10:1 1 AM EST Narrative 09/16/2025 11:24 AM EST [facility] [address] [place] [address] Ultrasound Report Signed Patient: Afua Hector MR#: [id number] : 1980 Acct:[id number] Age/Sex: 45 / F ADM Date: 09/16/25 Loc: HO.MAMMO Attending Dr: Trevor Medina NP Ordering Physician: TREVOR MEDINA NP Date of Service: 09/16/25 Procedure(s): US Breast BI Limited Mamm Only Accession Number(s): [id number] cc: TREVOR MEDINA NP Reason for Exam: [...] by: Milla Craig DO 09/16/2025 11:21 AM [facility] Dictated By: Milla Craig DO Signed By: <Electronically signed by Milla Craig DO in OV> 09/16/25 1121 DD/ 1011 TD/TT: 09/16/25 1032 Wall Cleaner: Procedure Note Donotuseinterpreter, Image - 09/16/2025 [facility] [address] [place], [place] [address] Ultrasound Report Signed Patient: Afua Hector LMR#: [id number] : 1980Acct:[id number] Age/Sex: 45 / FADM Date: 09/16/25 Loc: HO.MAMMO Attending Dr: Trevor Medina NP Ordering Physician: TREVOR MEDINA NP Date of Service: 09/16/25 Procedure(s): US Breast BI Limited Mamm Only Accession Number(s): [id number] cc: TREVOR MEDINA NP Reason for Exam: [...] 09/16/25 1121 DD/ 1011 TD/TT: 09/16/25 1032 Wall Cleaner: us Trevor Medina ANP IMG US PROCEDURES Final Result * Mammography (09/16/2025 9:43 AM EST) Mammogram BIRADS 1 Normal, Abnormal, BIRADS 1 , BIRADS 2 Anatomical Region Laterality Modality Other Historical Provider HEALTH MAINTENANCE Final Result * BI Mammogram Diag w/ Lukas w/ Implants Harjeet (09/15/2025 1:22 PM EST) Anatomical Region Laterality Modality Mammography 09/15/2025 1:22 PM EST Narrative 09/15/2025 4:00 PM EST [facility] [address] [place] [address] Mammography Report Signed Patient: Afua Hector MR#: [id number] : 1980 Acct:[id number] Age/Sex: 45 / F ADM Date: 09/15/25 Loc: HO.MAMMO Attending Dr: Trevor Medina NP Ordering Physician: TREVOR MEDINA NP Results: 0Incomplete - Need Additional Imaging Evaluation Date of Service: 09/15/25 Follow Up: Additional Imagi ng Procedure(s): MM tomosynthesis diag imp BI Accession Number(s): [id number] cc: TREVOR MEDINA NP Reason For Exam: [...] Hua Collins MD 09/15/2025 03:57 PM EST RP Dictated By: Hua Collins MD Signed By: <Electronically signed by Hua Collins MD in OV> 09/15/25 1557 DD/ 1322 TD/TT: 09/15/25 1335 Wall Cleaner: Procedure Note Donotuseinterpreter, Image - 09/15/2025 [facility] [address] [place] [address] Mammography Report Signed Patient: Afua Hector LMR#: [id number] : 1980Acct:[id number] Age/Sex: 45 / FADM Date: 09/15/25 Loc: HO.MAMMO Attending Dr: Trevor Medina NP Ordering Physician: TREVOR MEDINA NPResults: 0Incomplete - Need Additional Imaging Evaluation Date of Service: 09/15/25Follow Up: Additional Imagi ng Procedure(s): MM tomosynthesis diag imp BI Accession Number(s): [id number] cc: TREVOR MEDINA NP Reason For Exam: [...] 09/15/25 1557 DD/ 1322 TD/TT: 09/15/25 1335 Wall Cleaner: us Trevor Medina ANP IMG BI PROCEDURES Final Result * Lipase (08/31/2025 8:16 AM EST) Lipase 29 8 - 78 U/L [facility] Blood Venous blood specimen / Unknown 08/31/2025 8:16 AM EST 08/31/2025 11:27 AM EST us Trevor JULES LAB BLOOD ORDERABLES Final Resul t [facility] [address] [place] [address] [phone] * (ABNORMAL) Lipid Panel, Standard (08/31/2025 8:16 AM EST) Triglycerides 199(H) <150 mg/dL [facility] Comment:Desirable Triglyceri de: less than 150 mg/dLBorderline High Triglyceride 150-199 mg/dLHigh Triglyceride: 200-499 mg/dLVery High Triglyceride: greater than or equal to 5OO mg/dL Cholesterol 274(H) <200 mg/dL [facility] Comment:Desirable Cholestero l: less than 200 mg/dLBorderline High Cholesterol: 200-239 mg/dLHigh Cholesterol: greater than 239 mg/dL LDL Cholesterol Calculated 190(H) <100 mg/dL [facility] Comment:Desirable LDL: less than 100 mg/dLNear Optimal/Above Optimal LDL: 110- 129 mg/dLBorderline High LDL: 130-159 mg/dLHigh LDL: 160-189 mg/dLVery High LDL: greater than or equal to 190 mg/dL HDL Cholesterol 45 >40 mg/dL [facility] Comment:Desirable HDL: great er than 40 mg/dL Note: This HDL assay may give artificially low results in patients with liver disease. Blood Venous blood specimen / Unknown 08/31/2025 8:16 AM EST 08/31/2025 11:27 AM EST Trevor Medina [facility] LAB BLOOD ORDERABLES Final Resul t [facility] [address] [place], [place] [phone] * (ABNORMAL) Comprehensive Metabolic Panel (08/31/2025 8:16 AM EST) Sodium 138 135 - 145 mmol/L [facility] Potassium 4.2 3.3 - 5.1 mmol/L [facility] Chloride 106 96 - 108 mmol/L [facility] Carbon Dioxide 28 22 - 29 mmol/L [facility] Anion Gap 8(L) 12 - 20 [facility] Urea Nitrogen (BUN) 8(L) 9 - 16 mg/dL [facility] Creatinine, Serum 0.53 0.5 - 1.4 mg/dL [facility] Estimated Glomerular Filt Rate >60 [facility] Comment:Chronic Kidney Disea se: Estimated GFR < 60 mL/min/1.84n0Ivntis Kidney Disease: Estimated GFR < 15 mL/min/1.73m2 Glucose 84 60 - 115 mg/dL [facility] Calcium 8.9 8.4 - 10.2 mg/dL [facility] Bilirubin, Total 0.8 0.0 - 1.0 mg/dL [facility] Aspartate Amino Transferase 39(H) 5 - 31 U/L [facility] Alanine Aminotransferase 24 0 - 31 U/L [facility] Total Protein 6.9 6.5 - 8.0 g/dL [facility] Albumin Level 4.0 3.5 - 5.0 g/dL [facility] Alkaline Phosphatase 72 39 - 117 U/L [facility] Blood Venous blood specimen / Unknown 08/31/2025 8:16 AM EST 08/31/2025 11:27 AM EST Trevor JULES LAB BLOOD ORDERABLES Final Resul t [facility] [address] [place] [phone] * POCT Hgb A1c (07/27/2025 1:44 PM EDT) Hemoglobin A1C 5.4 4.0 - 5.7 % QC Media Lot # [id number] Lot# Expiration Date ,[id number] Blood 07/27/2025 1:44 PM EDT Chantelle VIEIRA POINT OF CARE TEST ENTER/EDIT ORDERABLES Final Result * Colonoscopy (09/01/2024) Colonoscopy Normal Normal Narrative Rena Alejandra - 09/01/2024 Colonoscopy order added . Colonoscopy performed on 09/01/2024 per office note repeat in 7 years Historical Provider HEALTH MAINTENANCE Final Result * Hepatitis C Antibody with Reflex to HCV, RNA, Quantitative, Real-Time PCR (11/16/2023 9:23 AM EST) Hepatitis C Antibody Nonreactive Nonreactive [facility] Comment:Antibodies to HCV no t detected; does not exclude early acuteHCV infection. Blood Venous blood specimen / Unknown 11/16/2023 9:23 AM EST 11/16/2023 11:17 AM EST Trevor JULES LAB BLOOD ORDERABLES Final Resul t Performing Organization Address [facility] Co de Phone Number [facility] [address] [place] [address] [phone] * HIV Ab/Ag (KIERSTEN OWENS) (07/12/2023 9:10 AM EDT) HIV AB/AG Nonreactive Nonreactive [facility] Comment:HIV-1 p24 Ag and/or HIV-1/HIV-2 Ab not detected.A test result that is nonreactive does not exclude thepossibility of exposure to or infection with HIV-1 and/orHIV-2. Nonreactive results in this assay for individualswith prior exposure to HIV-1 and/or HIV-2 may be due toantigen and antibody levels that are below the limit ofdetection of this assay.The [employer] HIV Ag/Ab Combo assay result andsupplemental assay results should be interpreted inconjunction with the patient's clinical presentation,history and other laboratory results. If the results areinconsistent with clinical evidence, additional testing issuggested to confirm the result. 07/12/2023 9:10 AM EDT 07/12/2023 11:28 AM EDT Trevor Medina [facility] LAB BLOOD ORDERABLES Final Resul t Performing Organization Address [facility] Co de Phone Number [facility] [address] [place] [address] [phone] * Pap Smear (12/31/2013) Pap Negative for intraephithelial lesion or malignancy Negative for intraephithelial lesion or malignancy, Other HPV Undetected Undetected, Indeterminate, Quantitative, Not Detected Historical Provider HEALTH MAINTENANCE Final Result from Last 3 Months or Most Recently Relevant to Health Maintenance Insurance [place] [facility] MEDICAID STAND ADULT Care Teams Speech Therapist Relationship Specialty Start Date End Date Trevor Medina ANP [address] [place] [address] PCP - General Family Medicine 06/20/21 Scar Pimentel RN [address] [place] [address] Registered Nurse Family Medicine 07/13/25 Tawny Frias 07/13/25
--- OUTSIDE RECORDS SUMMARY | 2025-10-26 10:27 | XMS_ITS | Encounter Summary ---
Author Organization [employer] Address 75 [facility] 7t [place] [address] Care Team Providers Care Gantry Crane Operator Name Role Phone Evy Christopher Primary Care Provider [phone] Romeo Echavarria RN Unavailable [phone] Romeo Echavarria RN Unavailable [phone] Scar Pimetnel RN Unavailable [phone] Tawny Frias Unavailable Encounter Details Date Type Department Care Team ([facility] Contact Info) Description 12/04/2022 Telephone [facility] [address] [place], [place] [phone] Evy Christopher ANP [address] [place], [place] [phone] Social History Tobacco Use Types Packs/Day Years [...] Upcoming Encounters Date Type Department Care Team ([facility] Contact Info) Description 11/09/2025 11:30 AM EST Office Visit [facility] [address] [place] [address] Evy Christopher ANP [address] [place] [address] documented as of this encounter Visit Diagnoses Not on filedocumented in this encounter Care Teams Gantry Crane Operator Relationship Specialty Start Date End Date Evy Christopher ANP [address] [place] [address] PCP - General Family Medicine 06/20/21 Romeo Echavarria, SUKHWINDER [address] [place] [address] Automotive Airconditioning MechanicHeat Regulator 12/25/24 05/07/25 Romeo Echavarria, RN [address] [place] [address] Registered Nurse Family Medicine 04/28/25 04/28/25 Scar Pimentel, SUKHWINDER [address] [place] [address] Registered Nurse Family Medicine 07/13/25 Tawny Frias 07/13/25 documented as of this encounter
--- OUTSIDE RECORDS SUMMARY | 2025-10-26 10:27 | XMS_ITS | Encounter Summary ---
Author Organization [employer] Address 75 [facility] 7t [place] [address] Care Team Providers Care Automatic Seamer Name Role Phone Evy Christopher JORGE A Primary Care Provider [phone] Romeo Echavarria RN Unavailable [phone] oRmeo cEhavarria RN Unavailable [phone] Scar Pimentel RN Unavailable [phone] Tawny Frias Unavailable Reason for Visit * Reason Onset Date Comments RCT active request 09/26/2023 Encounter Details Date Type Department Care Team (Late st Contact Info) Description 09/26/2023 Telephone [facility] [address] [place], [place] [phone] Torie Mishra DDS [address] [place] [address] RCT active request Social History Tobacco Use [...] Description 11/09/2025 11:30 AM EST Office Visit [facility] MEDICINE [address] [place] [address] Evy Christopher ANP [address] [place], [place] [phone] documented as of this encounter Visit Diagnoses Not on filedocumented in this encounter Additional Health Concerns Assessment Noted Time PHQ-9 Depression Total Score: 13 023 2:43 PM EST documented as of this encounter Care Teams Automatic Seamer Relationship Specialty Start Date End Date Evy Christopher ANP [address] [place] [address] PCP - General Family Medicine 06/20/21 Romeo Echavarria, RN [address] [place] [address] Automotive Service ConsultantSide Framer 12/25/24 05/07/25 Romeo Echavarria, SUKHWINDER [address] [place] [address] Registered Nurse Family Medicine 04/28/25 04/28/25 Scar Pimentel, SUKHWINDER [address] [place] [address] Registered Nurse Family Medicine 07/13/25 Tawny Frias 07/13/25 documented as of this encounter
--- OUTSIDE RECORDS SUMMARY | 2025-10-26 10:27 | XMS_ITS | Encounter Summary ---
Author Organization [employer] Address 75 [facility] 7t [place] [address] Care Team Providers Care Ux Specialist Name Role Phone Evy Christopher Primary Care Provider Romeo Echavarria RN Unavailable [phone] Romeo Echavarria RN Unavailable [phone] Scar Pimentel RN Unavailable [phone] Tawny Frias Unavailable Reason for Visit * Reason Onset Date Comments Nurse Triage 02/20/2025 Encounter Details Date Type Department Care Team (Late st Contact Info) Description 02/20/2025 Telephone [facility] [address] [place], [place] [phone] Evy Christopher ANP [address] [place], [place] [phone] Nurse Triage Social History Tobacco Use Types [...] 02/20/2025 9:38 AM EDT Triage call with [facility] manager marketing sales ID [id number] Pt reports a small lump on inner aspect of right thigh. Pt describes area as size of grain of rice and darker color than surrounding skin. Pt reports it is itchy, tender to touch. Pt is advised to come to [facility] for provider to see. Pt agrees with disposition. [facility] hours given open till 4pm today. [...] become worse * Telephone Encounter - Corrine Perazaiago - 02/20/2025 8:28 AM EDT Symptom: Leg Swelling - Not From Injury Outcome: Schedule an appointment to be seen within 24 hours Reason: Caller denied all higher acuity questions The caller accepted this outcome. [phone] yoruba documented in this encounter Plan of Treatment Upcoming Encounters Date Type Department Care Team (Late st Contact Info) Description 11/09/2025 11:30 AM EST Office Visit [facility] [address] [place] [address] Evy Christopher ANP [address] [place] [address] documented as of this encounter Visit Diagnoses Not on filedocumented in this encounter Additional Health Concerns Assessment Noted Time PHQ-9 Depression Total Score: 2 05/23/20 24 9:49 AM EDT documented as of this encounter Care Teams Ux Specialist Relationship Specialty Start Date End Date Evy Christopher ANP [address] [place] [address] PCP - General Family Medicine 06/20/21 Romeo Echavarria RN [address] [place] [address] Training AdministratorStereo Compiler 12/25/24 05/07/25 Romeo Echavarria RN [address] [place] [address] Registered Nurse Family Medicine 04/28/25 04/28/25 Scar Pimentel RN [address] [place] [address] Registered Nurse Family Medicine 07/13/25 Tawny Frias 07/13/25 documented as of this encounter
--- OUTSIDE RECORDS SUMMARY | 2025-10-26 10:27 | XMS_ITS | Encounter Summary ---
Author Organization [employer] Address 75 [facility] 7t [place] [address] Care Team Providers Care Retail Account Executive Name Role Phone Ashwin Evy JULES Primary Care Provider [phone] Romeo Echavarria RN Unavailable [phone] Romeo Echavarria RN Unavailable [phone] Scar Pimentel RN Unavailable [phone] Tawny Frias Unavailable Encounter Details Date Type Department Care Team (Late st Contact Info) Description 09/11/2024 Orders Only [facility] [address] [place] [address] Provider, MD Pearl Social History Tobacco Use [...] Description 11/09/2025 11:30 AM EST Office Visit [facility] MED[facility] [address] [place] [address] Evy Christopher ANP [address] [place] [address] documented as of this encounter Procedures Procedure [...] documented as of this encounter Care Teams Retail Account Executive Relationship Specialty Start Date End Date Evy Christopher ANP [address] [place] [address] PCP - General Family Medicine 06/20/21 Romeo Echavarria, RN [address] [place] [address] Funeral Home Makeup ArtistFourdrinier Machine Operator 12/25/24 05/07/25 Romeo Echavarria, SUKHWINDER [address] [place] [address] Registered Nurse Family Medicine 04/28/25 04/28/25 Scar Pimentel RN [address] [place] [address] Registered Nurse Family Medicine 07/13/25 Tawny Frias 07/13/25 documented as of this encounter
--- OUTSIDE RECORDS SUMMARY | 2025-10-26 10:27 | XMS_ITS | Encounter Summary ---
Author Organization [employer] Address [address] [facility] [address] [address] 7t [place] [address] Care Team Providers Care Clinical Cytogeneticist Name Role Phone Evy Christopher JORGE A Primary Care Provider [phone] Scar Pimentel RN Unavailable Tawny Frias Unavailable Encounter Details Date Type Department Care Team (Latest Contact Info) Description 10/26/2025 Travel Social History Tobacco Use Types Packs/Day Years [...] Upcoming Encounters Date Type Department Care Team ([facility] st Contact Info) Description 11/09/2025 11:30 AM EST Office Visit [facility] MEDICINE [address] [place] [address] Evy Christopher ANP [address] [place] [address] documented as of this encounter Visit Diagnoses Not on filedocumented in this encounter Additional Health Concerns Assessment Noted Time PHQ-9 Depression Total Score: 0 08/04/20 25 11:55 AM EDT documented as of this encounter Care Teams Clinical Cytogeneticist Relationship Specialty Start Date End Date Evy Christopher ANP [address] [place] [address] PCP - General Family Medicine 06/20/21 Scar Pimentel, SUKHWINDER [address] [place] [address] Registered Nurse Family Medicine 07/13/25 Tawny Frias 07/13/25 documented as of this encounter
--- OUTSIDE RECORDS SUMMARY | 2025-10-26 10:27 | XMS_ITS | Encounter Summary ---
Author Organization [employer] Address 75 [facility] 7t [place] [address] Care Team Providers Care Nitroglycerin Neutralizer Name Role Phone Christopher Evy JULES Primary Care Provider [phone] Scar Pimentel RN Unavailable [phone] Tawny Frias Unavailable Encounter Details Date Type Department Care Team (Late st Contact Info) Description 05/28/2025 Orders Only [facility] [address] [place] [address] ProviderPearl MD Social History Tobacco Use Types [...] 11:30 AM EST Office Visit [facility] MEDICINE [address] [place] [address] Evy Christopher ANP [address] [place] [address] documented as of this encounter Procedures Procedure [...] documented as of this encounter Care Teams Nitroglycerin Neutralizer Relationship Specialty Start Date End Date Evy Christopher ANP [address] [place] [address] PCP - General Family Medicine 06/20/21 Scar Pimentel RN [address] [place] [address] Registered Nurse Family Medicine 07/13/25 Tawny Frias 07/13/25 documented as of this encounter
--- OUTSIDE RECORDS SUMMARY | 2025-10-26 10:27 | XMS_ITS | Encounter Summary ---
Author Organization [employer] Address 75 [facility] 7t [place] [address] Care Team Providers Care Service Liaison Representative Name Role Phone Evy Christopher ANP Primary Care Provider [phone] Scar Pimentel RN Unavailable [phone] Tawny Frias Unavailable Reason for Visit * Reason Comments Med Refill Encounter Details Date Type Department Care Team (Late st Contact Info) Description 07/06/2025 Refill [facility] MEDICINE [address] [place], [place] [phone] Evy Christopher ANP [address] [place] [address] SHANNA (generalized anxiety disorder) Social History Tobacco [...] the past 12 months, has t he [employer], gas, oil or water company threatened to [...] Description 11/09/2025 11:30 AM EST Office Visit [facility] MEDICINE [address] [place] [address] Evy Christopher ANP [address] [place] [address] documented as of this encounter Visit Diagnoses Diagnosis SHANNA (generalized anxiety disorder) Generalized anxiety disorder documented in this encounter Additional Health Concerns Assessment Noted Time PHQ-9 Depression Total Score: 0 04/02/20 25 11:38 AM EDT documented as of this encounter Care Teams Service Liaison Representative Relationship Specialty Start Date End Date Evy Christopher ANP [address] [place] [address] PCP - General Family Medicine 06/20/21 Scar Pimentel RN [address] [place] [address] Registered Nurse Family Medicine 07/13/25 Tawny Frias 07/13/25 documented as of this encounter
--- OUTSIDE RECORDS SUMMARY | 2025-10-26 10:27 | XMS_ITS | Encounter Summary ---
Author Organization [employer] Address 75 [facility] 7t [place] [address] Care Team Providers Care Industry Consultant Name Role Phone Evy Christopher Primary Care Provider [phone] Romeo Echavarria RN Unavailable [phone] Romeo Echavarria RN Unavailable [phone] Scar Pimentel RN Unavailable [phone] Tawny Frias Unavailable Reason for Visit * Reason Onset Date Comments Referral 01/22/2025 Encounter Details Date Type Department Care Team (Late st Contact Info) Description 01/22/[address] [facility] MEDICINE [address] [place], [place] [phone] Evy Christopher ANP [address] [place], [place] [phone] Referral Social History Tobacco Use Types Packs/Day [...] be sent to [facility] FAX [phone] documented in this encounter Plan of Treatment Upcoming Encounters Date Type Department Care Team (Late st Contact Info) Description 11/09/2025 11:30 AM EST Office Visit [facility] MEDICINE [address] [place], [place] [phone] Evy Christopher ANP [address] [place], [place] [phone] documented as of this encounter Visit Diagnoses Not on filedocumented in this encounter Additional Health Concerns Assessment Noted Time PHQ-9 Depression Total Score: 2 05/23/20 9:49 AM EDT documented as of this encounter Care Teams Industry Consultant Relationship Specialty Start Date End Date Evy Christopher ANP [address] [place] [address] PCP - General Family Medicine 06/20/21 Romeo Echavarria, RN [address] [place] [address] Slice Cutting Machine Operator HelperHead Kiln Operator 12/25/24 05/07/25 Romeo Echavarria, SUKHWINDER [address] [place] [address] Registered Nurse Family Medicine 04/28/25 04/28/25 Scar Pimentel RN [address] [place] [address] Registered Nurse Family Medicine 07/13/25 Tawny Frias 07/13/25 documented as of this encounter
--- OUTSIDE RECORDS SUMMARY | 2025-10-26 10:27 | XMS_ITS | Encounter Summary ---
Author Organization [employer] Address 75 [facility] 7t [place] [address] Care Team Providers Care Supervisor Car And Yard Name Role Phone Evy Christopher Primary Care Provider Romeo Echavarria RN Unavailable [phone] Romeo Echavarria RN Unavailable [phone] Scar Pimentel RN Unavailable [phone] Tawny Frias Unavailable Reason for Visit * Reason Onset Date Comments Medication Question 09/26/2023 Encounter Details Date Type Department Care Team (Late st Contact Info) Description 09/26/2023 Telephone [facility] [address] [place], [place] [phone] Evy Christopher ANP [address] [place], [place] [phone] Medication Question Social History Tobacco Use Types [...] being too nervous. Please contact pt at [phone] Welsh Speaker documented in this encounter Plan of Treatment Upcoming Encounters Date Type Department Care Team (Late st Contact Info) Description 11/09/2025 11:30 AM EST Office Visit [facility] [address] [place] [address] Evy Christopher ANP [address] [place] [address] documented as of this encounter Visit Diagnoses Not on filedocumented in this encounter Additional Health Concerns Assessment Noted Time PHQ-9 Depression Total Score: 13 023 2:43 PM EST documented as of this encounter Care Teams Supervisor Car And Yard Relationship Specialty Start Date End Date Evy Christopher ANP [address] [place] [address] PCP - General Family Medicine 06/20/21 Romeo Echavarria, RN [address] [place] [address] Building Construction InspectorJammer Hooker 12/25/24 05/07/25 Romeo Echavarria, RN [address] [place] [address] Registered Nurse Family Medicine 04/28/25 04/28/25 Scar Pimentel RN [address] [place] [address] Registered Nurse Family Medicine 07/13/25 Tawny Frias 07/13/25 documented as of this encounter
--- OUTSIDE RECORDS SUMMARY | 2025-10-26 10:27 | XMS_ITS | Encounter Summary ---
Author Organization [employer] Address 75 [facility] 7t [place] [address] Care Team Providers Care Radiation Officer Name Role Phone Evy Christopher Primary Care Provider [phone] Romeo Echavarria RN Unavailable [phone] Romeo Echavarria RN Unavailable [phone] Scar Pimentel RN Unavailable [phone] Tawny Frias Unavailable Reason for Visit * Reason Onset Date Comments Call Back Request 04/23/2024 Encounter Details Date Type Department Care Team (Late st Contact Info) Description 04/23/2024 Telephone [facility] MEDICINE [address] [place], [place] [phone] Evy Christopher ANP [address] [place], [place] [phone] Call Back Request Social History Tobacco Use [...] Description 11/09/2025 11:30 AM EST Office Visit [facility] MEDICINE [address] [place] [address] Evy Christopher ANP [address] [place] [address] documented as of this encounter Visit Diagnoses Not on filedocumented in this encounter Additional Health Concerns Assessment Noted Time PHQ-9 Depression Total Score: 13 023 2:43 PM EST documented as of this encounter Care Teams Radiation Officer Relationship Specialty Start Date End Date Evy Christopher ANP [address] [place] [address] PCP - General Family Medicine 06/20/21 Romeo Echavarria, RN 505 [place] [address] Glaze GrinderDirector Nursery School 12/25/24 05/07/25 Romeo Echavarria, RN 505 [place] [address] Registered Nurse Family Medicine 04/28/25 04/28/25 Scar Pimentel, SUKHWINDER 505 [facility] [place] [address] Registered Nurse Family Medicine 07/13/25 Tawny Frias 07/13/25 documented as of this encounter
--- OUTSIDE RECORDS SUMMARY | 2025-10-26 10:27 | XMS_ITS | Encounter Summary ---
Author Organization [employer] Address 75 [facility] 7t [place] [address] Care Team Providers Care Row Boss Name Role Phone Christopher Evy JULES Primary Care Provider [phone] Scar Pimentel RN Unavailable [phone] Tawny Frias Unavailable Encounter Details Date Type Department Care Team (Late st Contact Info) Description 07/13/2025 Orders Only [facility] [address] [place] [address] ProviderPearl MD Social History Tobacco Use Types [...] Description 11/09/2025 11:30 AM EST Office Visit [facility] MEDICINE [address] [place] [address] Evy Christopher ANP [address] [place] [address] documented as of this encounter Procedures Procedure [...] documented as of this encounter Care Teams Row Boss Relationship Specialty Start Date End Date Evy Christopher ANP 230 [place] [address] PCP - General Family Medicine 06/20/21 Scar Pimentel RN [address] [place] [address] Registered Nurse Family Medicine 07/13/25 Tawny Frias 07/13/25 documented as of this encounter
--- OUTSIDE RECORDS SUMMARY | 2025-10-26 10:27 | XMS_ITS | Encounter Summary ---
Author Organization [employer] Address [address] [facility] [address] [place] [address] Care Team Providers Care Program Clerk Name Role Phone Evy Christopher Primary Care Provider Romeo Echavarria RN Unavailable [phone] Romeo Echavarria RN Unavailable [phone] Scar Pimentel RN Unavailable [phone] Tawny Frias Unavailable Encounter Details Date Type Department Care Team (Late st Contact Info) Description 10/16/2024 Telephone [facility] MEDICINE [address] [place], [place] [phone] Evy Christopher ANP [address] [place], [place] [phone] Social History Tobacco Use Types Packs/Day Years [...] t he electric, gas, oil or water [employer] threatened to shut off services in your [...] 11:30 AM EST Office Visit [facility] MEDICINE [address] [place] [address] Evy Christopher ANP [address] [place] [address] documented as of this encounter Visit Diagnoses Not on filedocumented in this encounter Additional Health Concerns Assessment Noted Time PHQ-9 Depression Total Score: 2 05/23/20 24 9:49 AM EDT documented as of this encounter Care Teams Program Clerk Relationship Specialty Start Date End Date Evy Christopher ANP [address] [place] [address] PCP - General Family Medicine 06/20/21 Romeo Echavarria RN [address] [place] [address] Museum Exhibit DesignerHoning Machine Operator 12/25/24 05/07/25 Romeo Echavarria, SUKHWINDER [address] [facility] [place] [address] Registered Nurse Family Medicine 04/28/25 04/28/25 Scar Pimentel RN [address] [facility] [place] [address] Registered Nurse Family Medicine 07/13/25 Tawny Frias 07/13/25 documented as of this encounter
--- OUTSIDE RECORDS SUMMARY | 2025-10-26 10:27 | XMS_ITS | Encounter Summary ---
Author Organization [employer] Address [address] [facility] 7t [place] [address] Care Team Providers Care Business Director Name Role Phone Evy Christopher Primary Care Provider Romeo Echavarria RN Unavailable [phone] Romeo Echavarria RN Unavailable [phone] Scar Pimentel RN Unavailable [phone] Tawny Frias Unavailable Reason for Visit * Reason Onset Date Comments Durable Medical Equipment 07/02/2024 Encounter Details Date Type Department Care Team (Late st Contact Info) Description 07/02/2024 Telephone [facility] MEDICINE 230 [place], [place] [phone] Evy Christopher ANP 230 [place], [place] [phone] Durable Medical Equipment Social History Tobacco Use [...] etcand if anything else is needed the media supervisor will reach out to us. Please call patient and inform that isaiah is working on processing the order. We have sent everything to them they are working on it. If she has any questions she can call them at [phone]. * Telephone Encounter - Tony Frias - 07/02/2024 3:53 PM EDT Tc from pt requesting status on CPAP machine. Please contact pt at [phone]. (Guatemalan Speaker) documented in this encounter Plan of Treatment Upcoming Encounters Date Type Department Care Team ([facility] st Contact Info) Description 11/09/2025 11:30 AM EST Office Visit [facility] MEDICINE 230 [place] [address] Evy Christopher ANP 230 [place] [address] documented as of this encounter Visit Diagnoses Not on filedocumented in this encounter Additional Health Concerns Assessment Noted Time PHQ-9 Depression Total Score: 2 05/23/20 24 9:49 AM EDT documented as of this encounter Care Teams Business Director Relationship Specialty Start Date End Date Evy Christopher ANP 230 [place] [address] PCP - General Family Medicine 06/20/21 Romeo Echavarria RN 505 [place], [place] [phone] Vp Scientific AffairsShadowgraph Scale Operator 12/25/24 05/07/25 Romeo Echavarria, RN [address] [place] [address] Registered Nurse Family Medicine 04/28/25 04/28/25 Scar Pimentel, RN [address] [place], [place] [phone] Registered Nurse Family Medicine 07/13/25 Tawny Frias 07/13/25 documented as of this encounter
--- OUTSIDE RECORDS SUMMARY | 2025-10-26 10:27 | XMS_ITS | Encounter Summary ---
Author Organization [employer] Address [address] [facility] 7t [place] [address] Care Team Providers Care Silk Opener Name Role Phone Evy Christopher Primary Care Provider Romeo Echavarria RN Unavailable [phone] Romeo Echavarria RN Unavailable [phone] Scar Pimentel RN Unavailable [phone] Tawny Frias Unavailable Reason for Visit * Reason Comments Med Refill Encounter Details Date Type Department Care Team (Late st Contact Info) Description 10/26/2024 Refill [facility] MEDICINE 230 [place], [place] [phone] Evy Christopher ANP 230 [place], [place] [phone] Social History Tobacco Use Types Packs/Day Years [...] Upcoming Encounters Date Type Department Care Team ([facility] st Contact Info) Description 11/09/2025 11:30 AM EST Office Visit [facility] MEDICINE [address] [place] [address] Evy Christopher ANP [address] [place] [address] documented as of this encounter Visit Diagnoses Not on filedocumented in this encounter Additional Health Concerns Assessment Noted Time PHQ-9 Depression Total Score: 2 05/23/20 24 9:49 AM EDT documented as of this encounter Care Teams Silk Opener Relationship Specialty Start Date End Date Evy Christopher ANP [address] [place] [address] PCP - General Family Medicine 06/20/21 Romeo Echavarria RN 505 [place] [address] Lead Dental AssistantCager Operator 12/25/24 05/07/25 Romeo Echavarria, SUKHWINDER 505 [place] [address] Registered Nurse Family Medicine 04/28/25 04/28/25 Scar Pimentel RN 505 [place] [address] Registered Nurse Family Medicine 07/13/25 Tawny Frias 07/13/25 documented as of this encounter
--- OUTSIDE RECORDS SUMMARY | 2025-10-26 10:27 | XMS_ITS | Clinical Summary ---
Author Organization [facility] Address [address] [phone] Phone Care Team Providers Care Stock Puller Name Role Phone Evy Christopher NP Primary Care Provider [phone] Allergies No known active allergies Medications lidocaine [...] 2023 INFLUENZA VACCINE (#1) 2025 COVID-19 VACCINE (1 - 2024-2 6 season) 2025 SCREENING FOR DIABETES 12/31/2027 12/30/2024 [...] ACO C3 ACO C3 ACO Care Teams Stock Puller Relationship Specialty Start Date End Date Evy Christopher NP [address] [place] [address] PCP - General Nurse Practitioner 12/30/24 Additional Source Comments The information contained in this document represents components of the legal health record. It is not the complete legal health record.[facility]
--- OUTSIDE RECORDS SUMMARY | 2025-10-26 10:27 | XMS_ITS | Encounter Summary ---
Author Organization [employer] Address [address] [facility] 7t [place] [address] Care Team Providers Care Pole Shaver Name Role Phone Ashwin Evy UJLES Primary Care Provider [phone] Romeo Echavarria RN Unavailable [phone] Romeo Echavarria RN Unavailable [phone] Scar Pimentel RN Unavailable [phone] Tawny Frias Unavailable Encounter Details Date Type Department Care Team (Late st Contact Info) Description 03/31/2025 Orders Only [facility] 230 [place] [address] Provider, MD Pearl Social History Tobacco Use [...] Description 11/09/2025 11:30 AM EST Office Visit [facility] MEDICINE 230 [place], [place] [phone] Evy Christopher ANP 230 [place] [address] documented as of this encounter Procedures Procedure [...] documented as of this encounter Care Teams Pole Shaver Relationship Specialty Start Date End Date Evy Christopher ANP [address] [place] [address] PCP - General Family Medicine 06/20/21 Romeo Echavarria, RN 505 [place] [address] Piano RefinisherCaddy Packer 12/25/24 05/07/25 Romeo Echavarria, SUKHWINDER 505 [place] [address] Registered Nurse Family Medicine 04/28/25 04/28/25 Scar Pimentel, SUKHWINDER 505 [place] [address] Registered Nurse Family Medicine 07/13/25 Tawny Frias 07/13/25 documented as of this encounter
--- OUTSIDE RECORDS SUMMARY | 2025-10-26 10:27 | XMS_ITS | Encounter Summary ---
Author Organization [employer] Address [address] [facility] 7t [place] [address] Care Team Providers Care Watch Hairspring Assembler Name Role Phone Ashwin Evy JULES Primary Care Provider [phone] Romeo Echavarria RN Unavailable [phone] Romeo Echavarria RN Unavailable [phone] Scar Pimentel RN Unavailable [phone] Tawny Frias Unavailable Encounter Details Date Type Department Care Team (Late st Contact Info) Description 09/23/2024 Orders Only [facility] 230 [place] [address] Provider, MD Pearl Social History Tobacco Use [...] Description 11/09/2025 11:30 AM EST Office Visit [facility] MEDICINE 230 [place] [address] Evy Christopher ANP [address] [place] [address] documented as of this encounter Procedures Procedure [...] documented as of this encounter Care Teams Watch Hairspring Assembler Relationship Specialty Start Date End Date Evy Christopher ANP [address] [place] [address] PCP - General Family Medicine 06/20/21 Romeo Echavarria, RN 505 [place] [address] Service Delivery ConsultantPens And Pencils Repairer 12/25/24 05/07/25 Romeo Echavarria, SUKHWINDER [address] [place] [address] Registered Nurse Family Medicine 04/28/25 04/28/25 Scar Pimentel RN 505 [place] [address] Registered Nurse Family Medicine 07/13/25 Tawny Frias 07/13/25 documented as of this encounter
--- OUTSIDE RECORDS SUMMARY | 2025-10-26 10:27 | XMS_ITS | Encounter Summary ---
Author Organization [employer] Address [address] [facility] 7t [place] [address] Care Team Providers Care Passenger Train Braker Name Role Phone Evy Christopher Primary Care Provider [phone] Romeo Echavarria RN Unavailable [phone] Romeo Echavarria RN Unavailable [phone] Scar Pimentel RN Unavailable [phone] Tawny Frias Unavailable Reason for Visit * Reason Onset Date Comments FYI 06/29/2023 Encounter Details Date Type Department Care Team (Late st Contact Info) Description 06/29/[address] [facility] MEDICINE 230 [place], [place] [phone] Evy Christopher ANP 230 [place], [place] [phone] Social History Tobacco Use Types Packs/Day Years [...] 06/29/2023 2:50 PM EDT Tre Mendoza at [facility] calling to inform PCP of senior living plan of care stoppedbut patient will continue with PT for 2 visit in the week. documented in this encounter Plan of Treatment Upcoming Encounters Date Type Department Care Team (Late st Contact Info) Description 11/09/2025 11:30 AM EST Office Visit [facility] MEDICINE [address] [place] [address] Evy Christopher ANP [address] [place] [address] documented as of this encounter Visit Diagnoses Not on filedocumented in this encounter Care Teams Passenger Train Braker Relationship Specialty Start Date End Date Evy Christopher ANP 230 [place] [address] PCP - General Family Medicine 06/20/21 Romeo Echavarria RN [address] [place] [address] Mental Health Program ManagerAssembler Flexible Leads 12/25/24 05/07/25 Romeo Echavarria RN 505 [place] [address] Registered Nurse Family Medicine 04/28/25 04/28/25 Scar Pimentel, SUKHWINDER [address] [place] [address] Registered Nurse Family Medicine 07/13/25 Tawny Frias 07/13/25 documented as of this encounter
--- OUTSIDE RECORDS SUMMARY | 2025-10-26 10:27 | XMS_ITS | Encounter Summary ---
Author Organization [employer] Address [address] [facility] 7t [place] [address] Care Team Providers Care Criminal Justice Faculty Name Role Phone Evy Christopher Primary Care Provider [phone] Romeo Echavarria RN Unavailable [phone] Romeo Echavarria RN Unavailable [phone] Scar Pimentel RN Unavailable [phone] Tawny Frias Unavailable Reason for Visit * Reason Onset Date Comments Returning Call 03/14/2024 Encounter Details Date Type Department Care Team (Late st Contact Info) Description 03/14/2024 Telephone [facility] MEDICINE 230 [place], [place] [phone] Evy Christopher ANP 230 [place], [place] [phone] Returning Call Social History Tobacco Use Types [...] from pt stating received a call but appeals writer sees nothing tasked. documented in this encounter Plan of Treatment Upcoming Encounters Date Type Department Care Team (Late st Contact Info) Description 11/09/2025 11:30 AM EST Office Visit [facility] MEDICINE [address] [place] [address] Evy Christopher ANP [address] [place] [address] documented as of this encounter Visit Diagnoses Not on filedocumented in this encounter Additional Health Concerns Assessment Noted Time PHQ-9 Depression Total Score: 13 023 2:43 PM EST documented as of this encounter Care Teams Criminal Justice Faculty Relationship Specialty Start Date End Date Evy Christopher ANP [address] [place] [address] PCP - General Family Medicine 06/20/21 Romeo Echavarria, SUKHWINDER 505 [place] [address] Ski Base TrimmerLaborer Pipelines 12/25/24 05/07/25 Romeo Echavarria, SUKHWINDER 505 [place] [address] Registered Nurse Family Medicine 04/28/25 04/28/25 Scar Pimentel RN 505 [place] [address] Registered Nurse Family Medicine 07/13/25 Tawny Frias 07/13/25 documented as of this encounter
--- OUTSIDE RECORDS SUMMARY | 2025-10-26 10:28 | XMS_ITS ---
Author Organization [employer] Address [address] [facility] 7t [place] [address] Care Team Providers Care Fleet Administrator Name Role Phone Evy Christopher Primary Care Provider [phone] Scar Pimentel RN Unavailable [phone] Tawny Frias Unavailable CM Complex Status:Enrolled (Active) Start date:07/13/2025 Enrollment date:08/04/2025 Enrollment reason:ADT Feed Overview ED- Pt went to [facility] ED on 07/10/25. Case Team Name Relationship Phone Scar Pimentel RN(Responsible Staff) Registered Nurse [phone] Continued Care and Services Coordination
--- OUTSIDE RECORDS SUMMARY | 2025-10-26 10:28 | XMS_ITS ---
Author Organization [employer] Address [address] [facility] 7t [place] [address] Care Team Providers Care Engineer Fishing Vessel Name Role Phone Evy Christopher Primary Care Provider [phone] Scar Pimentel RN Unavailable [phone] Tawny Frias Unavailable CHW Complex Status:Outreach In Progress (Enrolling) Start date:07/13/2025 Enrollment reason:ADT Feed Overview ED- Pt went to [facility] ED on 07/10/25. Please outreach for enrollment. Case Team Name Relationship Phone Tawny Frias(Responsible Staff) [phone] Continued Care and Services Coordination
--- OUTSIDE RECORDS SUMMARY | 2025-10-26 10:28 | XMS_ITS | Clinical Summary ---
Author Organization [facility] Address [address] [place] [address] Phone Care Team Providers Care Ambulette Driver Name Role Phone Evy Christopher NP Primary Care Provider [phone] Allergies Active Allergy Reactions Criticality Noted Date [...] tablet 5 Active tirzepatide, weight loss, (Zepbound) 12.5 mg/0.5 mL injection Inject 0.5 mL (12.5 mg total) under the skin every 7 (seven) days. 2 mL 5 11/06/19 26 Active tirzepatide, weight loss, (Zepbound) 12.5 mg/0.5 mL injection Inject 0.5 mL (12.5 mg total) under the skin every 7 (seven) days. 2 mL 5 10/05/20 25 Discontin ued(Reord er) Active Problems Problem Noted Date Diagnosed Date Constipation 05/20/2025 Chronic pancreatitis 05/06/2025 Gastroenteritis 04/21/2025 Acute flank pain 04/02/2025 [...] adnexal mass, this pain is not likely Advertising Clerk in nature. As such, there is no [...] Encounters Date Type Department Care Team Description 10/09/2025 Telephone Bariatric Surgery [address] [address] Paul Rod MD 10/05/2025 9:15 AM EST Office Visit Bariatric Surgery [address] [address] Mily Cardenas MD Hx of hiatal hernia (Primary Dx); History of fundoplication 09/17/2025 Telephone Bariatric Surgery [address] [address] Paul Rod MD 09/15/2025 7:20 AM EST - 09/15/2025 11:59 PM EST Hospital Encounter [facility] Xray [address] [place] [address] Discharge Disposition: Home or Self Care 09/09/2025 Telephone Bariatric Surgery [address] [address] Paul Rod MD 08/31/2025 10:45 AM EST Office Visit Bariatric Surgery [address] [phone] Mily Cardenas MD Hx of hiatal hernia (Primary Dx); Food intolerance 08/31/2025 Telephone Bariatric Surgery [address] [address] Paul Rod MD 08/17/2025 8:39 PM EDT - 08/17/2025 10:12 PM EDT Emergency [facility] Emergency [address] [place] [address] Ling Nieto MD Chest pain with low risk for cardiac etiology (Primary Dx) Discharge Disposition: Home or Self Care 08/11/2025 12:40 AM EDT - 08/11/2025 5:06 AM EDT Emergency [facility] Emergency [address] [place] [address] Godwin Ordonez MD Acute chest pain (Primary Dx); Right flank pain; Abnormal liver function test; Acute cystitis with hematuria Discharge Disposition: Home or Self Care 07/29/2025 2:30 PM EDT Office Visit Bariatric Surgery - [place] [address] [facility] [place] [address] Mily Cardenas MD Hx of hiatal hernia (Primary Dx); Food intolerance from Last 3 Months Immunizations Immunization Administration Dates Next Due Hepatitis A-Hepatitis B Adul t (Twinrix) 18yo and older 04/19/2016,02/18/2014,01/15/2014 Hepatitis B (Aydygks-O-Xrusl , Recombivax HB-Adult) 19yo and older 09/27/2021 [...] LAPAROSCOPY, CHOLECYSTECTOMY BREAST REDUCTION 2005 Bilateral PROCEDURE: UT BREAST REDUCTION SALPINGOOPHORECTOMY 2016 Left PROCEDURE: UT LAPAROSCOPY W/RMVL ADNEXAL STRUCTURES; COMMENT: left salpingectomy only HYSTERECTOMY 02/2018 PROCEDURE: HISTORICAL HYSTERECTOMY; COMMENT: robotic TUBAL LIGATION PROCEDURE: HISTORICAL TUBAL LIGATION BREAST SURGERY 08/2020 PROCEDURE: UT BREAST AUGMENTATION WITH IMPLANT; COMMENT: in [place] OTHER SURGICAL HISTORY 08/2020 PROCEDURE: HISTORICAL PANNICULECTOMY; COMMENT: Tummy tuck in [place] Medical History Medical History Date Comments Anemia [...] Sign Reading Time Taken Comments Blood Pressure 120/81 10/05/2025 9:11 AM EST Pulse 80 10/05/2025 9:11 AM EST Temperature 36.6 C (97.8 F) 10/05/2025 9:11 AM EST Respiratory Rate 20 08/17/2025 8:51 PM EDT Oxygen Saturation 96% 08/17/2025 8:51 PM EDT Inhaled Oxygen Concentration - - Weight 73 kg (161 lb) 10/05/2025 9:11 AM EST Height 160 cm (5' 3 ) 10/05/2025 9:11 AM EST Body Mass Index 28.52 10/05/2025 9:11 AM EST Plan of Treatment Upcoming Encounters Date Type Department Care Team (Late st Contact Info) Description 12/17/2025 10:15 AM EST Office Visit Bariatric Surgery - [address] [place] [phone] Paul Rod MD [address] [place] [phone] 01/04/2026 9:00 AM EDT Office Visit Bariatric Surgery - [address] [place] [address] Mily Cardenas MD [facility] [place] [address] Health Maintenance Due Date Last Done Comments Breast Cancer Screening 1978 Colorectal Cancer Screening: Colonoscopy 1978 Drug Screen 1978 Non-Opioid Controlled Substance Agreement 1978 Social Influencers of Health Screening 10/01/2022 [...] ECG 12-LEAD STAT 08/10/2025 5:38 PM EDT HEPATITIS C SCREENING Routine 02/01/2022 HIV [...] Signed Date: 09/15/2025 17:07 ET Workstation ID: [id number] Transcribed By: Self Edit Transcribed Date: 09/15/2025 12:41 ET Resident/PA/BEAVER TRAPPER: Joelle Francisco Narrative 09/15/2025 5:07 PM EST EXAM: Single contrast esophagram performed. COMPARISON: No prior upper GI imaging HISTORY: Hiatal hernia repair June 30, 2025. Follow-up. Educational Technology Coordinator radiographs: 1 view abdominal radiograph demonstrates nonobstructive [...] leak, extravasation or residual hernia. Procedure Note Dnaiel Soriano MD - 09/15/2025 EXAM: Single contrast esophagram performed. COMPARISON: No prior upper GI imaging HISTORY: Hiatal hernia repair June 30, 2025. Follow-up. Educational Technology Coordinator radiographs: 1 view abdominal radiograph demonstrates nonobstructivebowel [...] Signed Date: 09/15/2025 17:07 ET Workstation ID: [id number] Transcribed By: Self Edit Transcribed Date: 09/15/2025 12:41 ET Resident/PA/BEAVER TRAPPER: Joelle Francisco Mily Cardenas MD IMG FLUOROSCOPY PROCEDU RES Final Result * ECG-Annotated (08/18/2025) Only the most recent of2 resultswithin the [...] Signed Date: 08/18/2025 09:26 ET Workstation ID: [id number] Transcribed By: Self Edit Transcribed Date: 08/18/2025 [...] Signed Date: 08/18/2025 09:26 ET Workstation ID: [id number] Transcribed By: Self Edit Transcribed Date: 08/18/2025 09:25 ET us Ling Nieto MD IMG XR PROCEDURES Final Result * Troponin I high sensitivity (08/17/2025 7:12 PM EDT) Only the most recent of4 resultswithin the time period is included. High Sensitivity Troponin I <3 <=54 ng/L LAB CHEMISTRY METHOD 08/17/2025 8:09 PM EDT [facility] Blood Venous blood specimen / Unknown Venipuncture / Unknown 08/17/2025 7:12 PM EDT 08/17/2025 7:25 PM EDT Narrative [facility] - 08/17/2025 8:09 PM EDT High levels of biotin in samples may falsely decrease hsTroponin values. Use caution when interpreting hsTroponin results in patients taking biotin who exhibit renal impairment (eGFR <60) or in patients taking more than 20 mg/day of biotin. us Ling Nieto MD LAB BLOOD ORDERABLES Final Resul t [facility] [address] [place] [address], * (ABNORMAL) CBC auto differential (08/17/2025 3:59 PM EDT) Only the most recent of2 resultswithin the time period is included. [facility] Signature WBC 7.2 4.8 - 10.8 K/mcL LAB HEMETOLOGY METHOD 08/17/2025 4:27 PM [facility] RBC 4.20 3.80 - 4.80 M/mcL LAB HEMETOLOGY METHOD 08/17/2025 4:27 PM [facility] Hemoglobin 11.4(L) 11.5 - 16.0 g/dL LAB HEMETOLOGY METHOD 08/17/2025 4:27 PM [facility] Hematocrit 37.7 35.0 - 47.0 % LAB HEMETOLOGY METHOD 08/17/2025 4:27 PM [facility] MCV 89.3 79.0 - 98.0 FL LAB HEMETOLOGY METHOD 08/17/2025 4:27 PM [facility] MCH 27.0 27.0 - 32.0 pcg LAB HEMETOLOGY METHOD 08/17/2025 4:27 PM [facility] MCHC 30.2(L) 32.0 - 37.0 g/dL LAB HEMETOLOGY METHOD 08/17/2025 4:27 PM [facility] RDW 12.5 11.0 - 15.0 % LAB HEMETOLOGY METHOD 08/17/2025 4:27 PM [facility] Platelets 305 130 - 400 K/mcL LAB HEMETOLOGY METHOD 08/17/2025 4:27 PM [facility] MPV 10.8 7.0 - 11.0 FL LAB HEMETOLOGY METHOD 08/17/2025 4:27 PM [facility] NRBC 0.0 <1.0 % LAB HEMETOLOGY METHOD 08/17/2025 4:27 PM [facility] NRBC Absolute 0.00 <0.10 K/mcL LAB HEMETOLOGY METHOD 08/17/2025 4:27 PM [facility] Neutrophils Relative 56.8 % LAB HEMETOLOGY METHOD 08/17/2025 4:27 PM [facility] Lymphocytes Relative 30.5 % LAB HEMETOLOGY METHOD 08/17/2025 4:27 PM [facility] Monocytes Relative 8.8 % LAB HEMETOLOGY METHOD 08/17/2025 4:27 PM [facility] Eosinophils Relative 2.6 % LAB HEMETOLOGY METHOD 08/17/2025 4:27 PM [facility] Basophils Relative 1.0 % LAB HEMETOLOGY METHOD 08/17/2025 4:27 PM [facility] Immature Granulocytes Relative 0.3 % LAB HEMETOLOGY METHOD 08/17/2025 4:27 PM [facility] Neutrophils Absolute 4.07 1.50 - 7.00 K/mcL LAB HEMETOLOGY METHOD 08/17/2025 4:27 PM [facility] Lymphocytes Absolute 2.19 1.00 - 5.00 K/mcL LAB HEMETOLOGY METHOD 08/17/2025 4:27 PM [facility] Monocytes Absolute 0.63 0.20 - 1.00 K/mcL LAB HEMETOLOGY METHOD 08/17/2025 4:27 PM [facility] Eosinophils Absolute 0.19 0.00 - 0.50 K/mcL LAB HEMETOLOGY METHOD 08/17/2025 4:27 PM [facility] Basophils Absolute 0.07 0.00 - 0.20 K/mcL LAB HEMETOLOGY METHOD 08/17/2025 4:27 PM [facility] Immature Granulocytes Absolute 0.02 0.00 - 0.03 K/mcL LAB HEMETOLOGY METHOD 08/17/2025 4:27 PM [facility] Blood Venous blood specimen / Unknown Venipuncture / Unknown 08/17/2025 3:59 PM EDT 08/17/2025 4:13 PM EDT us Ling Nieto MD LAB BLOOD ORDERABLES Final Resul t Performing Organization Address City/[facility]/ZIP Co de Phone Number [facility] [address] [place] [address], [place] [phone] * B-type natriuretic peptide (08/17/2025 3:59 PM EDT) Only the most recent of2 resultswithin the time period is included. BNP 13 <=100 pcg/mL LAB CHEMISTRY METHOD 08/17/2025 5:12 PM EDT [facility] Blood Venous blood specimen / Unknown Venipuncture / Unknown 08/17/2025 3:59 PM EDT 08/17/2025 4:13 PM EDT us Ling Nieto MD LAB BLOOD ORDERABLES Final Resul t Performing Organization Address [facility] de Phone Number [facility] [address] [place] [address], [place] [phone] * Magnesium (08/17/2025 3:59 PM EDT) Only the most recent of2 resultswithin the time period is included. Magnesium 1.9 1.9 - 2.6 mg/dL LAB CHEMISTRY METHOD 08/17/2025 4:52 PM EDT [facility] Blood Venous blood specimen / Unknown Venipuncture / Unknown 08/17/2025 3:59 PM EDT 08/17/2025 4:13 PM EDT us Ling Nieto MD LAB BLOOD ORDERABLES Final Resul t Performing Organization Address City/[facility] Co de Phone Number [facility] [address] [place] [address], [place] [phone] * Lipase (08/17/2025 3:59 PM EDT) Only the most recent of2 resultswithin the time period is included. [facility] Lipase 50 13 - 75 unit/L LAB CHEMISTRY METHOD 08/17/2025 4:52 PM EDT [facility] Blood Venous blood specimen / Unknown Venipuncture / Unknown 08/17/2025 3:59 PM EDT 08/17/2025 4:13 PM EDT us Ling Nieto MD LAB BLOOD ORDERABLES Final Resul t [facility] [address] [place] [address], [place] [phone] * (ABNORMAL) Comprehensive metabolic panel (08/17/2025 3:59 PM EDT) Only the most recent of2 resultswithin the time period is included. [facility] Sodium 141 133 - 145 mmol/L LAB CHEMISTRY METHOD 08/17/2025 4:52 PM [facility] Potassium 4.0 3.5 - 5.5 mmol/L LAB CHEMISTRY METHOD 08/17/2025 4:52 PM [facility] Chloride 107 96 - 110 mmol/L LAB CHEMISTRY METHOD 08/17/2025 4:52 PM [facility] CO2 30 21 - 32 mmol/L LAB CHEMISTRY METHOD 08/17/2025 4:52 PM [facility] Anion Gap 4 3 - 11 LAB CHEMISTRY METHOD 08/17/2025 4:52 PM [facility] Glucose 84 70 - 100 mg/dL LAB CHEMISTRY METHOD 08/17/2025 4:52 PM [facility] BUN 11 5 - 25 mg/dL LAB CHEMISTRY METHOD 08/17/2025 4:52 PM [facility] Creatinine 0.72 0.50 - 1.10 mg/dL LAB CHEMISTRY METHOD 08/17/2025 4:52 PM [facility] eGFR 104 >=60 mL/min/1. 73m2 LAB CHEMISTRY METHOD 08/17/2025 4:52 PM [facility] Comment:Calculation based on the Chronic Kidney Disease Epidemiology Collaboration (CKD-EPI) equation refit without adjustment for race. BUN/Creatinine Ratio 15.3 LAB CHEMISTRY METHOD 08/17/2025 4:52 PM [facility] Calcium 9.7 8.5 - 10.5 mg/dL LAB CHEMISTRY METHOD 08/17/2025 4:52 PM [facility] AST (SGOT) 50(H) 10 - 42 unit/L LAB CHEMISTRY METHOD 08/17/2025 4:52 PM [facility] ALT (SGPT) 47 10 - 60 unit/L LAB CHEMISTRY METHOD 08/17/2025 4:52 PM [facility] Alkaline Phosphatase 92 42 - 121 unit/L LAB CHEMISTRY METHOD 08/17/2025 4:52 PM [facility] Total Protein 7.2 6.0 - 8.0 g/dL LAB CHEMISTRY METHOD 08/17/2025 4:52 PM [facility] Albumin 3.7 3.2 - 5.0 g/dL LAB CHEMISTRY METHOD 08/17/2025 4:52 PM [facility] Total Bilirubin 0.8 0.0 - 1.4 mg/dL LAB CHEMISTRY METHOD 08/17/2025 4:52 PM [facility] Blood Venous blood specimen / Unknown Venipuncture / Unknown 08/17/2025 3:59 PM EDT 08/17/2025 4:13 PM EDT us Ling Nieto MD LAB BLOOD ORDERABLES Final Resul t [facility] [address] [place] [address], [place] [phone] * ECG 12 lead (08/17/2025 3:26 PM EDT) Only the most recent of2 resultswithin the time period is included. Ventricular Rate ECG 77 BPM GEMUSE Atrial Rate 77 BPM GEMUSE P-R Interval 156 ms GEMUSE QRS Duration 80 ms GEMUSE Q-T Interval 386 ms GEMUSE QTc 436 ms GEMUSE P Wave Bruce 67 degrees GEMUSE R Bruce 25 degrees GEMUSE T Bruce -32 degrees GEMUSE ECG Interpretation Normal sinus [...] reflex microscopic (08/11/2025 1:49 AM EDT) Specific [place] Urine 1.021 1.003 - 1.030 LAB URINALYSIS - AUTOMATED METHOD 08/11/2025 2:40 AM [facility] pH, Urine 5.5 5.0 - 8.0 pH LAB URINALYSIS - AUTOMATED METHOD 08/11/2025 2:40 AM [facility] Leukocytes, Urine Small(A) Negative LAB URINALYSIS - AUTOMATED METHOD 08/11/2025 2:40 AM [facility] Nitrite, Urine Negative Negative LAB URINALYSIS - AUTOMATED METHOD 08/11/2025 2:40 AM [facility] Protein, Urine Trace <=Trace mg/dL LAB URINALYSIS - AUTOMATED METHOD 08/11/2025 2:40 AM [facility] Glucose, Urine Negative Negative mg/dL LAB URINALYSIS - AUTOMATED METHOD 08/11/2025 2:40 AM [facility] Ketones, Urine Trace(A) Negative mg/dL LAB URINALYSIS - AUTOMATED METHOD 08/11/2025 2:40 AM [facility] Urobilinogen, Urine 1.0 0.2 - 1.0 mg/dL LAB URINALYSIS - AUTOMATED METHOD 08/11/2025 2:40 AM [facility] Bilirubin, Urine Negative Negative LAB URINALYSIS - AUTOMATED METHOD 08/11/2025 2:40 AM [facility] Blood, Urine Negative Negative LAB URINALYSIS - AUTOMATED METHOD 08/11/2025 2:40 AM [facility] RBC, Urine 1.7 0 - 4 /HPF LAB URINALYSIS - AUTOMATED METHOD 08/11/2025 2:40 AM [facility] WBC, Urine 17.2(H) 0 - 4 /HPF LAB URINALYSIS - AUTOMATED METHOD 08/11/2025 2:40 AM [facility] Bacteria, Urine Few(A) Negative /HPF LAB URINALYSIS - AUTOMATED METHOD 08/11/2025 2:40 AM [facility] Hyaline Casts, Urine 2 0 - 3 /LPF LAB URINALYSIS - AUTOMATED METHOD 08/11/2025 2:40 AM [facility] Urine Urine specimen obtained by clean catch procedure / Unknown Non-blood Collection / Unknown 08/11/2025 1:49 AM EDT 08/11/2025 2:11 AM EDT us Godwin Ordonez MD LAB URINE ORDERABLES Final Result [facility] [address] [place] [address], * D-dimer, quantitative (08/10/2025 6:05 PM EDT) D-Dimer, Quant (D-DU) <150 <=230 ng/mL DDU LAB COAGULATION METHOD 08/10/2025 6:47 PM EDT [facility] Blood Venous blood specimen / Unknown Venipuncture / Unknown 08/10/2025 6:05 PM EDT 08/10/2025 6:28 PM EDT Narrative [facility] - 08/10/2025 6:47 PM EDT D-Dimer <230 ng/mL (D-Dimer units) is the threshold for exclusion of DVT/PE. D-Dimer may be elevated in: Critically ill, severely infected, trauma patients, DIC, acute CVA, acute [place], unstable angina, AF, old age, , and smoking. D-Dimer may be decreased with: Initiation of heparin therapy and oral anticoagulants. Godwin Ordonez MD LAB BLOOD ORDERABLES Final Result Performing Organization Address City/[facility]/ZIP Co de Phone Number [facility] [address] [place] [address], [place] [phone] * hCG, serum, qualitative (08/10/2025 6:05 PM EDT) [facility] hCG Qual Negative Negative 08/11/2025 1:25 AM EDT [facility] Blood Venous blood specimen / Unknown Venipuncture / Unknown 08/10/2025 6:05 PM EDT 08/10/2025 6:28 PM EDT Godwin Ordonez MD LAB BLOOD ORDERABLES Final Result [facility] [address] [place] [address], [place] [phone] * HIV Screening (02/01/2022) [facility] HIV Screening Abstracted Historical Provider HEALTH MAINTENANCE Final Result * Hepatitis C Screening (02/01/2022) [facility] Hepatitis C Screening Abstracted Historical Provider HEALTH [...] currently active code status orders. Care Teams Ambulette Driver Relationship Specialty Start Date End Date Evy Christopher NP [address] [place] [address] PCP - General 10/26/24
[2025-10-26 11:14] LABS: MANUAL DIFF FLAG NO
[2025-10-26 11:17] LABS: Hematocrit 37.6 % (37.0-47.0); Hemoglobin 11.6 g/dl (12.0-16.0); Imm Gran Abs Auto 0.02 X10*3/uL (0.00-0.03); Imm Gran Pct Auto 0.3 % (0.0-0.4); Lymphocytes Absolute Auto 1.8 X10*3/uL (1.2-4.9); Mean Corpuscular HGB Conc 30.9 g/dl (31.0-35.0); Mean Corpuscular Hemoglobin 28.2 pg (27.0-33.0); Mean Corpuscular Volume 91.5 fL (80.0-98.0); NRBC Abs Auto 0.000 X10*3/uL (0.0-0.012); NRBC Pct Auto 0.0 /100WBC (0.0-0.2); Platelet Count 313 X10*3/uL (160-400); Red Blood Count 4.11 X10*6/uL (4.20-5.50); White Blood Count 6.3 X10*3/uL (4.8-10.8)
[2025-10-26 11:25] LABS: Alanine Aminotransferase 9 U/L (0-31); Albumin Level 4.3 g/dL (3.5-5.0); Alkaline Phosphatase 69 U/L (39-117); Amylase 69 U/L (28-100); Anion Gap 9 (12-20); Aspartate Amino Transferase 26 U/L (5-31); Blood Urea Nitrogen 12 mg/dL (9-16); Calcium 9.5 mg/dL (8.4-10.2); Carbon Dioxide 30 mmol/L (22-29); Chloride 107 mmol/L (96-108); Estimated Glomerular Filt Rate > 60; Lipase 24 U/L (8-78); Potassium 4.3 mmol/L (3.3-5.1); Sodium 142 mmol/L (135-145); Total Protein 7.6 g/dL (6.5-8.0)
== END 2025-10-26 09:47 | disposition home or self-care (01) ==
LOC: HO.HHCL 09:46
PROVIDERS: PCP Nurse Practitioner Primary Care; Visit Provider Nurse Practitioner
DX: R10.11 Right upper quadrant pain (principal)
CPT/HCPCS: 36415; 80053; 82150; 83690; 85025